=== PATIENT | female | born 1975 | race Caucasian/White ===

== ENCOUNTER → 2016-08-30 | Day surgery (SDC) | payer OTHER ==
[2016-08-24 13:24] VITALS: Ht 157.5 cm; Wt 97.7 kg
[~2016-08-30] VITALS: Ht 157.5 cm; Wt 97.7 kg
[~2016-08-30] MED LIST: ABL10 PO; ACET-1256 PO; ALBU18002 INH; ALBU1AER9 INH; ALBUAER INH; ARIP1TAB16 PO; ARIP1TAB8 PO; ASCO250C17 PO; ATV/1 PO; CHOL200010 PO; CYAN3INJ IM; CYAN6000 SL; CYCL10TA6 PO; CYNI1000 IM; DOCU-94 PO; DRON2.5C PO; FLUT110A INH; FLVHFA110 INH; GABA-113 PO; LACT1GRA PO; LEVO1TAB35 PO; LIDOCAINE HCL 2% 2 ML VIAL (20MG/ML) ONE; LISI-461 PO; LISI-729 PO; MAXALT PO; MIDAZOLAM HCL 1 MG/ML 2ML VIAL ONE; MIRT15TA PO; MIRT15TA3 PO; MTR600X PO; NADO20TA15 PO; NADO40TA PO; NF656 TD; OXYC-57 PO; PEDICHW50 PO; PEDICHW53 PO; POLY150C4 PEG; POLY150C4 PO; POLY335019 PO; POTA-65 PO; POTA20TA13 PO; PRLSR20 PO; PROPOFOL IV EMULSION 10 MG/ML 20 ML VIAL IV ONE; RIZA10TA18 PO; SERT50TA PO; SODIENE PR; SODIUM CHLORIDE 0.9% 500ML 500 ML IV ONE; TOPI100T20 PO; TRIA0.1C20 TOP; TRMCR130WC TOP; VALA500T60 PO; ZFRODT/8 PO; ZOLP10TA PO; ZOLP10TA6 PO; [UNRECOGNIZED DRUG - CODE] IV; [UNRECOGNIZED DRUG - CODE] IV; [UNRECOGNIZED DRUG - CODE] IV
[2016-08-30 10:00] VITALS: TEMP 36.5
--- NOTE | 2016-08-30 11:33 | Endo History and Physical ---
History & Physical Date of Service: Aug 30, 2016. Chief Complaint: hx of colon polyps Referring Physician: Dr. Bobo History of Present Illness H/o colon polyps Past Medical History Asthma, Gastrointestinal Disorder, Anxiety, Hypertension, Depression Past Surgical History Hx Cardiac Surgery: No Hx Internal Defibrillator: No Hx Pacemaker: No Hx Abdominal Surgery: Yes (GASTRIC BYPASS, HERNIA REPAIR, JENNIFER, ESSURE PROCEDURE IN FALLOPIAN TUBES) Hx of Implantable Prosthesis: No Hx Post-Op Nausea and Vomiting: No Hx Cancer Surgery: No Hx Thoracic Surgery: No Hx Orthopedic: No Hx Urinary Tract Surgery: No Family History Polyp Social History Smoking Status: Never Smoker Hx Substance Use: Yes (SEE MED REC (PAST HX OF DRUG USE-NOTHING CURRENT)) Hx Alcohol Use: No Allergies Coded Allergies: Morphine (Verified Allergy, Severe, TONGUE SWELLING, difficulty breathing/ wheezing, 08/24/16) Cat Dander (Verified Allergy, Unknown, ITCHY WATERY EYES , 08/24/16) Colestipol (Verified Allergy, Unknown, red rash (no itching), 08/24/16) NUTS (Verified Allergy, Unknown, skin test showed nut allergy, 08/24/16) per pt, eats peanuts without issue Scopolamine (Verified Adverse Reaction, Severe, Seizure, 08/24/16) SEIZURES ONLY WHEN COMBINED W/ WELLBUTRIN. Promethazine (Verified Adverse Reaction, Intermediate, "CAN'T SIT STILL", 08/24/16) Bupropion (Verified Adverse Reaction, Unknown, Seizure, 08/24/16) SEIZURES WHEN WELLBUTRIN IS COMBINED W/ SCOPALAMINE. Current Medications Reported Home Medications Medications Dose Route/Sig Max Daily Dose Days Date Category Dose Instructions Topamax (Topiramate) 100 Mg Tab 100 Mg PO BID 08/24/16 Reported Zestril (Lisinopril) 5 Mg Tab 5 Mg PO HS 06/03/16 Reported Corgard (Nadolol) 40 Mg Tab 1 Tab PO HS 30 04/29/16 Reported Remeron (Mirtazapine) 15 Mg Tab 15 Mg PO HS 03/11/16 Reported Neurontin (Gabapentin) 300 Mg Cap 300 Mg PO BID 02/23/16 Reported DAILY WITH LUNCH AND SUPPER Ambien (Zolpidem Tartrate) 10 Mg Tab 10 Mg PO HS 02/23/16 Reported Ativan (Lorazepam) 1 Mg Tab 1 Mg PO BID PRN 02/23/16 Reported Marinol (Dronabinol) 2.5 Mg Cap 2.5 Mg PO BID 02/23/16 Reported Ondansetron Odt (Ondansetron) 8 Mg Soltab 8 Mg PO Q8 PRN 02/16/16 Reported ALLOW TABLET TO DISSOLVE ON TONGUE Lactinex Granules (Lactobacillus Acidophilus) 1 Gm Pkt 1 Pkt PO TIDM 01/27/16 Reported Emend (Fosaprepitant Dimeglumine) Unknown Strength Inj 1 Dose IV WK 01/04/16 Reported Maxalt (Rizatriptan Benzoate) 10 Mg Tab 10 Mg PO UD PRN 10/21/15 Reported Fleet Enema (Sodium Phosphate/Biphosphate) Tamra 1 Ea MT DAILY PRN 10/11/15 Reported Vitamin D (Cholecalciferol) 2,000 Unit Cap 2,000 Inter.unit PO BID 10/11/15 Reported Tylenol (Acetaminophen) 500 Mg Tab 1,000 Mg PO Q6H PRN 04/08/15 Reported Colace (Docusate Sodium) 100 Mg Cap 200 Mg PO BID PRN 02/06/15 Reported Potassium Chloride ER (Potassium Chloride) 20 Meq Tab 20 Meq PO QAM 01/28/15 Reported Miralax (Polyethylene Glycol 3350) 1 Pow Pow 17 Gm PO TID PRN 01/24/15 Reported Flovent Hfa 110MCG Inhaler (Fluticasone Propionate Hfa) 110 Mcg/ Aer 2 Puffs INH BID 12/07/14 Reported Vitamin B-12 Inj (Cyanocobalamin) Unknown Strength Inj 1 Dose IM [id number] 11/23/14 Reported Valtrex (Valacyclovir HCl) 500 Mg Tab 500 Mg PO BID PRN 08/25/14 Reported Vitamin B-12 (Cyanocobalamin) 6,000 Mcg Sub 6,000 Mcg SL QAM 08/05/14 Reported Ascorbic Acid 250 Mg Chw 500 Mg PO QAM 07/20/14 Reported Abilify (Aripiprazole) 10 Mg Tab 15 Mg PO HS 05/22/14 Reported Flintstones Chewable (Pediatric Multiple Vitamin W/) 1 Chw Chw 1 Tab PO BID 02/11/14 Reported Ferrex 150 (Polysaccharide Iron Complex) 150 Mg Cap 150 Mg PO BID 02/11/14 Reported Proair Hfa (Albuterol) Aers 2 Puffs INH Q4H PRN 01/10/14 Reported Aristocort 0.1% (Triamcinolone Acetonide) Cr 1 Appln TOP DAILY PRN 01/09/14 Reported Vital Signs Weight (Kilograms): 97.73 Height (Feet): 5 Height (Inches): 2 Date Time Temp Pulse Resp B/P Pulse Ox O2 Delivery O2 Flow Rate FiO2 08/30/16 10:00 36.5 58 24 155/87 100 Room Air Physical Exam General Appearance: no apparent distress Respiratory/Chest: Respiratory effort: no dyspnea Auscultation: breath sounds normal Cardiovascular: Apical Impulse: not displaced Abdomen: Bowel Sounds: normal Assessment and Plan H/o colon polyps - cscopy
--- NOTE | 2016-08-30 12:05 | Discharge Instructions ---
Endoscopy Patient Instructions Date / Procedure(s) Performed Aug 30, 2016. Colonoscopy Allergy Information Coded Allergies: Morphine (Verified Allergy, Severe, TONGUE SWELLING, difficulty breathing/ wheezing, 08/24/16) Cat Dander (Verified Allergy, Unknown, ITCHY WATERY EYES , 08/24/16) Colestipol (Verified Allergy, Unknown, red rash (no itching), 08/24/16) NUTS (Verified Allergy, Unknown, skin test showed nut allergy, 08/24/16) per pt, eats peanuts without issue Scopolamine (Verified Adverse Reaction, Severe, Seizure, 08/24/16) SEIZURES ONLY WHEN COMBINED W/ WELLBUTRIN. Promethazine (Verified Adverse Reaction, Intermediate, "CAN'T SIT STILL", 08/24/16) Bupropion (Verified Adverse Reaction, Unknown, Seizure, 08/24/16) SEIZURES WHEN WELLBUTRIN IS COMBINED W/ SCOPALAMINE. Discharge Date / Findings Aug 30, 2016. Normal exam Medication Instructions Stopped Medication(s): Iron was stopped 5 days ago. Provider Instructions Activity Restrictions - No exercising or heavy lifting for 24 hours. - Do not drink alcohol the day of the procedure. - Do not drive a car or operate machinery until the day after the procedure. - Do not make any important decisions or sign important papers in 24 hours after the procedure. Following Day: - Return to full activity which may include returning to work/school. Diet Start your diet with liquids and light foods (jello, soup, juice, toast). Then eat your usual diet if not nauseated. Treatment For Common After Affects For mild abdominal pain, bloating, or excessive gas: - Rest - Eat lightly - Lie on right side Follow-Up Information Follow-up with Dr. Bobo as scheduled Anesthesia Information What You Should Know You have had a procedure that required some medicine to reduce anxiety and discomfort. This treatment is called moderate sedation. After receiving the treatment, you may be sleepy, but you will be able to breathe on your own. The effects of the treatment may last for several hours. Follow these instructions along with Activity/Diet recommendations noted above: * Do NOT do anything where dizziness or clumsiness would be dangerous. * Rest quietly at home today, then you can be up and about tomorrow. * Have a responsible person stay with you the rest of today. * You may have had an I.V. today. If so, you may take the dressing off later today. Recommendations Call your doctor if: * Trouble breathing * Continuous vomiting for more than 24 hours * Temperature above 101 degrees * Severe abdominal pain or bloating * Pain not relieved by pain medicine ordered * There is increased drainage or redness from any incision * A large amount of rectal bleeding greater than 2-3 tablespoons. (If you had a polyp/s removed or have hemorrhoids, a small amount of blood - from the rectum is to be expected.) * You have any unanswered questions or concerns. IN THE EVENT OF A SERIOUS EMERGENCY, GO TO THE NEAREST EMERGENCY ROOM Your discharge instructions were prepared by provider Sharon Zambraon. Patient Instructions Signature Page [place] Harris Patient (or Guardian) Signature/Date: I have read and understand the instructions given to me by my caregivers. Caregiver/RN/Doctor Signature/Date: The above-named patient and/or guardian has received patient instructions on this date. + Original Patient Signature Page (only) stays with chart. Please make copy for patient.
--- NOTE | 2016-08-30 12:05 | GI REPORT ---
Procedure Date: 08/30/2016 10:53 AM Procedure: Colonoscopy Indications: High risk colon cancer surveillance: Personal history of colonic polyps Medicines: See the Anesthesia note for documentation of the administered medications Complications: No immediate complications. Estimated Blood Loss: Estimated blood loss: none. Procedure: Pre-Anesthesia Assessment: - ASA Grade Assessment: III - A patient with severe systemic disease. After I obtained informed consent, the scope was passed under direct vision. Throughout the procedure, the patient's blood pressure, pulse, and oxygen saturations were monitored continuously. The scope was introduced through the anus and advanced to the terminal ileum. The colonoscopy was performed without difficulty. The patient tolerated the procedure well. The quality of the bowel preparation was good. Findings: The perianal and digital rectal examinations were normal. The colon (entire examined portion) appeared normal. The terminal ileum appeared normal. Impression: - The entire examined colon is normal. - The examined portion of the ileum was normal. - No specimens collected. Recommendation: - Discharge patient to home. Sharon Bryant M.D. Sahron Bryant MD 08/30/2016 12:05:22 PM This report has been signed electronically. Note Initiated On: 08/30/2016 10:53 AM I attest to the content of the Intraoperative Record and orders documented therein, exceptions below
[2016-08-30 12:31] VITALS: BP 147/73; PULSE 52; O2SAT 100
--- NOTE | 2016-08-30 14:26 | Anesthesiology Progress Note ---
Anesthesia Post Op Note Date & Time Aug 30, 2016 at 14:26 Vital Signs Pain Intensity: 0 Vital Signs Past 12 Hours Date Time Temp Pulse Resp B/P Pulse Ox O2 Delivery O2 Flow Rate FiO2 08/30/16 12:31 52 22 147/73 100 Room Air 08/30/16 12:18 48 22 134/63 95 Room Air 08/30/16 12:01 59 22 122/58 100 Room Air 08/30/16 10:00 36.5 58 24 155/87 100 Room Air Notes Mental Status: alert / awake / arousable, participated in evaluation Pt Amnestic to Procedure: Yes Nausea / Vomiting: adequately controlled Pain: adequately controlled Airway Patency, RR, SpO2: stable & adequate BP & HR: stable & adequate Hydration State: stable & adequate Anesthetic Complications: no major complications apparent
== END | disposition home or self-care (01) ==
LOC: C.GI 09:36
PROVIDERS: ATTEND Internal Medicine Gastroenterology
DX: Z12.11 Encounter for screening for malignant neoplasm of colon (principal); Z86.010 Personal history of colon polyps; J45.909 Unspecified asthma, uncomplicated; I10 Essential (primary) hypertension; F41.9 Anxiety disorder, unspecified; F32.9 Major depressive disorder, single episode, unspecified; Z95.1 Presence of aortocoronary bypass graft; Z98.890 Other specified postprocedural states; Z88.5 Allergy status to narcotic agent; Z88.8 Allergy status to other drugs, medicaments and biological substances

== ENCOUNTER 2016-10-28 05:12 | Inpatient (IN) | payer OTHER ==
[2016-10-11 13:14] VITALS: BMI 38.0
--- NOTE | 2016-10-11 13:45 | PAT Medication Instructions ---
Service Date Oct 11, 2016. Current Home Medication List Acetaminophen (Tylenol), 1,000 MG PO Q6H PRN for Pain Albuterol (Proair Hfa), 2 PUFFS INH Q4H PRN for SOB/Wheezing Aripiprazole (Abilify), 15 MG PO HS Ascorbic Acid (Ascorbic Acid), 500 MG PO QAM Cholecalciferol (Vitamin D), 2,000 INTER.UNIT PO QAM Cyanocobalamin (Vitamin B-12), 6,000 MCG SL QAM Cyanocobalamin (Vitamin B-12 Inj), 1 DOSE IM [id number] Docusate Sodium (Colace), 200 MG PO BID PRN for Constipation Dronabinol (Marinol), 2.5 MG PO BID Fluticasone Propionate Hfa (Flovent Hfa 110MCG Inhaler), 2 PUFFS INH BID Fosaprepitant Dimeglumine (Emend), 1 DOSE IV MONDAY Gabapentin (Neurontin), 300 MG PO BID Lactobacillus Acidophilus (Lactinex Granules), 1 PKT PO TIDM Lisinopril (Zestril), 5 MG PO HS Lorazepam (Ativan), 1 MG PO BID PRN for Anxiety Mirtazapine (Remeron), 15 MG PO HS Nadolol (Corgard), 40 MG PO QAM Omeprazole (Prilosec), 20 MG PO QAM Ondansetron (Ondansetron Odt), 8 MG PO Q8 PRN for Nausea Pediatric Multiple Vitamin W/ (Flintstones Chewable), 1 TAB PO BID Polyethylene Glycol 3350 (Miralax), 17 GM PO TID PRN for Constipation Polysaccharide Iron Complex (Ferrex 150), 150 MG PO BID Potassium Chloride (Potassium Chloride ER), 20 MEQ PO QAM Rizatriptan Benzoate (Maxalt), 10 MG PO UD PRN for Headache Sodium Phosphate/Biphosphate (Fleet Enema), 1 EA OK DAILY PRN for Constipation Topiramate (Topamax), 100 MG PO BID Triamcinolone Acet 0.1% (Aristocort 0.1%), 1 APPLN TOP DAILY PRN for Itching Valacyclovir (Valtrex), 500 MG PO BID PRN for Outbreaks Zolpidem Tartrate (Ambien), 10 MG PO HS Medication Instructions For Your Scheduled Surgery - Continue as directed: Fosaprepitant Dimeglumine (Emend), 1 DOSE IV MONDAY Cyanocobalamin (Vitamin B-12 Inj), 1 DOSE IM [id number] - Hold the following medications 24 hours prior to surgery: Lisinopril (Zestril), 5 MG PO HS Triamcinolone Acet 0.1% (Aristocort 0.1%), 1 APPLN TOP DAILY PRN for Itching - Hold the following medications the morning of surgery: Pediatric Multiple Vitamin W/ (Flintstones Chewable), 1 TAB PO BID Docusate Sodium (Colace), 200 MG PO BID PRN for Constipation Lactobacillus Acidophilus (Lactinex Granules), 1 PKT PO TIDM Ascorbic Acid (Ascorbic Acid), 500 MG PO QAM Cholecalciferol (Vitamin D), 2,000 INTER.UNIT PO QAM Cyanocobalamin (Vitamin B-12), 6,000 MCG SL QAM Potassium Chloride (Potassium Chloride ER), 20 MEQ PO QAM Sodium Phosphate/Biphosphate (Fleet Enema), 1 EA OK DAILY PRN for Constipation Polysaccharide Iron Complex (Ferrex 150), 150 MG PO BID Polyethylene Glycol 3350 (Miralax), 17 GM PO TID PRN for Constipation - Take the following medications the morning of surgery with a sip of water OTHERWISE NOTHING TO EAT OR DRINK AFTER MIDNIGHT: Acetaminophen (Tylenol), 1,000 MG PO Q6H PRN for Pain (may take if needed up to 4 hours prior to surgery) Albuterol (Proair Hfa), 2 PUFFS INH Q4H PRN for SOB/Wheezing (use if needed; BRING TO HOSPITAL) Valacyclovir (Valtrex), 500 MG PO BID PRN for Outbreaks Dronabinol (Marinol), 2.5 MG PO BID Fluticasone Propionate Hfa (Flovent Hfa 110MCG Inhaler), 2 PUFFS INH BID Gabapentin (Neurontin), 300 MG PO BID Topiramate (Topamax), 100 MG PO BID Lorazepam (Ativan), 1 MG PO BID PRN for Anxiety Nadolol (Corgard), 40 MG PO QAM Omeprazole (Prilosec), 20 MG PO QAM Ondansetron (Ondansetron Odt), 8 MG PO Q8 PRN for Nausea Rizatriptan Benzoate (Maxalt), 10 MG PO UD PRN for Headache - Take the following medications as scheduled the night before surgery: Acetaminophen (Tylenol), 1,000 MG PO Q6H PRN for Pain Albuterol (Proair Hfa), 2 PUFFS INH Q4H PRN for SOB/Wheezing Mirtazapine (Remeron), 15 MG PO HS Aripiprazole (Abilify), 15 MG PO HS Zolpidem Tartrate (Ambien), 10 MG PO HS Valacyclovir (Valtrex), 500 MG PO BID PRN for Outbreaks Dronabinol (Marinol), 2.5 MG PO BID Fluticasone Propionate Hfa (Flovent Hfa 110MCG Inhaler), 2 PUFFS INH BID Gabapentin (Neurontin), 300 MG PO BID Topiramate (Topamax), 100 MG PO BID Lorazepam (Ativan), 1 MG PO BID PRN for Anxiety Pediatric Multiple Vitamin W/ (Flintstones Chewable), 1 TAB PO BID Docusate Sodium (Colace), 200 MG PO BID PRN for Constipation Lactobacillus Acidophilus (Lactinex Granules), 1 PKT PO TIDM Ondansetron (Ondansetron Odt), 8 MG PO Q8 PRN for Nausea Sodium Phosphate/Biphosphate (Fleet Enema), 1 EA OK DAILY PRN for Constipation Rizatriptan Benzoate (Maxalt), 10 MG PO UD PRN for Headache Polysaccharide Iron Complex (Ferrex 150), 150 MG PO BID Polyethylene Glycol 3350 (Miralax), 17 GM PO TID PRN for Constipation If you have any questions please call us at [phone] or [phone] or [phone]
[2016-10-11 14:08] LABS: BASO % 0.2 %; BASO ABS # 0.01 K/uL (0-0.2); COMPLETE YES; EOS % 1.9 %; HEMATOCRIT 32.9 % (37-47); IG% 0.2 %; LYMPH % 24.5 %; LYMPH ABS # 1.57 K/uL (1.2-3.4); MEAN CELL VOLUME 83.3 fL (80-100); MEAN CORPUSCULAR HEMOGLOBIN 25.3 pg (25-34); MEAN CORPUSCULAR HGB CONC 30.4 g/dl (32-36); MEAN PLATELET VOLUME 9.8 fL (7.4-10.4); MONO % 9.1 %; NEUT % 64.1 %; PLATELET COUNT 245 K/uL (130-400); RED BLOOD COUNT 3.95 M/uL (4.2-5.4)
[2016-10-11 14:30] LABS: CALCIUM 8.4 mg/dl (8.5-10.1); CREATININE 0.84 mg/dl (0.60-1.20); POTASSIUM 3.9 mmol/L (3.5-5.1)
[2016-10-28] VITALS (10 sets, daily range): BP systolic 120–165; BP diastolic 74–112; PULSE 55–87; TEMP 36.8–37.1; O2SAT 94–99; Ht 160 cm; Wt 96.9 kg
[~2016-10-28] VITALS: Ht 160 cm; Wt 96.9 kg
[~2016-10-28 05:12] MED LIST changes: -ABL10 PO; -ACET-1256 PO; -ALBU18002 INH; -ALBUAER INH; -ARIP1TAB16 PO; -ARIP1TAB8 PO; -ASCO250C17 PO; -ATV/1 PO; -CHOL200010 PO; -CYAN6000 SL; -CYCL10TA6 PO; -CYNI1000 IM; -DOCU-94 PO; -DRON2.5C PO; -FLVHFA110 INH; -GABA-113 PO; -LACT1GRA PO; -LEVO1TAB35 PO; -LIDOCAINE HCL 2% 2 ML VIAL (20MG/ML) ONE; -LISI-461 PO; -LISI-729 PO; -MAXALT PO; -MIDAZOLAM HCL 1 MG/ML 2ML VIAL ONE; -MIRT15TA PO; -MIRT15TA3 PO; -MTR600X PO; -NADO20TA15 PO; -NADO40TA PO; -NF656 TD; -OXYC-57 PO; -PEDICHW50 PO; -PEDICHW53 PO; -POLY150C4 PEG; -POLY150C4 PO; -POLY335019 PO; -POTA-65 PO; -POTA20TA13 PO; -PRLSR20 PO; -PROPOFOL IV EMULSION 10 MG/ML 20 ML VIAL IV ONE; -RIZA10TA18 PO; -SERT50TA PO; -SODIENE PR; -SODIUM CHLORIDE 0.9% 500ML 500 ML IV ONE; -TOPI100T20 PO; -TRMCR130WC TOP; -VALA500T60 PO; -ZFRODT/8 PO; -ZOLP10TA PO; -ZOLP10TA6 PO; -[UNRECOGNIZED DRUG - CODE] IV; -[UNRECOGNIZED DRUG - CODE] IV; -[UNRECOGNIZED DRUG - CODE] IV
[2016-10-28 05:51] LABS: HEMATOCRIT 29.6 % (37-47); MEAN CELL VOLUME 80.9 fL (80-100); MEAN CORPUSCULAR HEMOGLOBIN 25.4 pg (25-34); MEAN PLATELET VOLUME 9.4 fL (7.4-10.4); PLATELET COUNT 217 K/uL (130-400); RED BLOOD COUNT 3.66 M/uL (4.2-5.4); WHITE BLOOD COUNT 5.65 K/uL (4.8-10.8)
[2016-10-28] MEDS ORDERED: LACTATED RINGER'S 1000ML 1,000 ML IV SCH ×2 (06:00)
[2016-10-28] MEDS ORDERED: CEFAZOLIN 3000 MG/65 ML D5W 50 ML IV SCH (06:00)
[2016-10-28 06:08] LABS: MEAN CORPUSCULAR HGB CONC 31.4 g/dl (32-36)
[2016-10-28 06:09] LABS: COMPLETE YES; EOS % 1.8 %; IG% 0.2 %; LYMPH % 22.5 %; LYMPH ABS # 1.27 K/uL (1.2-3.4); MONO % 8.1 %; NEUT % 67.4 %
[2016-10-28] MEDS ORDERED: MIDAZOLAM HCL 1 MG/ML 2ML VIAL ONE (06:43)
[2016-10-28] MEDS ORDERED: ONDANSETRON INJ 2 MG/ML 2 ML VIAL ONE ×2 (06:44→07:19)
[2016-10-28] MEDS ORDERED: LIDOCAINE HCL 2% 2 ML VIAL (20MG/ML) ONE (06:44)
[2016-10-28] MEDS ORDERED: NEOSTIGMINE METHYLSULFATE 5 MG/5 ML SYR ONE (06:44)
[2016-10-28] MEDS ORDERED: GLYCOPYRROLATE INJ 0.2 MG/ML VIAL ONE (06:44)
[2016-10-28] MEDS ORDERED: ROCURONIUM BROMID 50MG/5ML SYR ONE (06:44)
[2016-10-28] MEDS ORDERED: FENTANYL CITRATE INJ 50 MCG/1 ML 2 ML VIAL ONE (06:44)
[2016-10-28] MEDS ORDERED: PROPOFOL IV EMULSION 10 MG/ML 20 ML VIAL IV ONE ×4 (06:44→08:51)
[2016-10-28] MEDS ORDERED: DEXAMETHASONE SOD INJ 4 MG/ML VIAL ONE ×2 (06:44→07:19)
--- NOTE | 2016-10-28 06:46 | History & Physical Bridge Note ---
H&P Re-Evaluation Bridge Note: I have examined the patient, reviewed the History & Physical and in the interval since the performance of the History & Physical I have noted the following changes of clinical significance: No changes noted
[2016-10-28] MEDS ORDERED: BUPIVACAINE 0.5 % 5 MG/1 ML MPF 30ML VIAL ONE (07:01)
[2016-10-28] MEDS ORDERED: METHYLENE BLUE 0.5% 10 ML VIAL ONE (07:01)
[2016-10-28] MEDS ORDERED: MINERAL OIL LIGHT 10 ML BTL ONE (07:02)
[2016-10-28] MEDS ORDERED: HYDROmorphone INJ 2 MG/ML SYR/VIAL ONE (07:28)
[2016-10-28] MEDS ORDERED: DiphenhydrAMINE HCL 50 MG/ML VIAL ONE (07:30)
[2016-10-28] MEDS ORDERED: EpHEDrine SULFATE INJ 50 MG/ML AMP IV PRN (07:45)
[2016-10-28] MEDS ORDERED: FENTANYL CITRATE INJ 50 MCG/1 ML 2 ML VIAL IV PRN (07:45)
[2016-10-28] MEDS ORDERED: ATROPINE SULFATE 0.1 MG/ML 5ML SYR IV PRN (07:45)
[2016-10-28] MEDS ORDERED: ONDANSETRON INJ 2 MG/ML 2 ML VIAL IV PRN ×2 (07:45→10:15)
[2016-10-28] MEDS ORDERED: HYDROmorphone INJ 1 MG/ML SYR IV PRN (07:45)
--- NOTE | 2016-10-28 10:02 | [facility] Post Operative Brief Note ---
Immediate Operative Summary Operative Date Oct 28, 2016. Pre-Operative Diagnosis Chronic pelvic pain, heavy menstrual bleeding, history of endometrial ablation. Post-Operative Diagnosis Same as preop. Enlarged right cystic ovary Procedure(s) Performed Total Laparoscopic Hysterectomy, Right salpingo-oophorectomy, Cystoscopy Surgeon Dr. Mir Co Chairman Surgeon(s) Dr. Estes Estimated Blood Loss 25 ml Findings Upon laparoscopic exam, uterus was at midline and freely mobile. The right ovary was enlarged and cystic therefore the decision was to remove the right ovary and tube. The left ovary was normal. The uterus, cervix and right ovary and tube were successfully removed laparoscopically. Once the specimens were removed the vaginal cuff was closed. Anesthesia was instructed to push methylene blue. A cystoscopy was performed noting bilateral ureteral openings spilled urine indicating both ureters were intact. No injury or suture noted within the bladder wall. Patient tolerated the procedure well and was sent to recovery with stable vital signs. Fluids (cc crystalloids) 1200 Specimens A: Uterus and cervix B: Right tube and ovary. Drains Vaca to gravity Anesthesia General Complication(s) None Disposition Recovery Room / PACU
[2016-10-28] MEDS ORDERED: MAGNESIUM HYDROXIDE SUSP 30 ML UDC PO PRN (10:15)
[2016-10-28] MEDS ORDERED: BISACODYL 10 MG SUPP PR PRN (10:15)
[2016-10-28] MEDS ORDERED: SENNA 8.6 MG TAB PO PRN (10:15)
[2016-10-28] MEDS ORDERED: LORAZEPAM 1 MG TAB PO PRN (10:15)
[2016-10-28] MEDS ORDERED: ALBUTEROL HFA 8 GM INHALER INH PRN (10:15)
[2016-10-28] MEDS ORDERED: DOCUSATE SODIUM 100 MG CAP PO PRN (10:15)
[2016-10-28] MEDS ORDERED: RIZATRIPTAN BENZOATE 10 MG TAB PO PRN (10:15)
[2016-10-28] MEDS ORDERED: KETOROLAC TROMETHAMINE 30 MG/ML VIAL IV. PRN (10:15)
[2016-10-28] MEDS ORDERED: ONDANSETRON 8MG OD TAB PO PRN (10:15)
[2016-10-28] MEDS ORDERED: IBUPROFEN 600 MG TAB PO PRN (10:15)
[2016-10-28] MEDS ORDERED: OXYC-57 PO (10:21)
[2016-10-28] MEDS ORDERED: MTR600X PO (10:21)
--- NOTE | 2016-10-28 10:52 | OPERATIVE REPORT ---
DATE OF OPERATION: 10/28/2016 PREOPERATIVE DIAGNOSES: 1. Chronic pelvic pain. 2. Heavy menstrual bleeding. 3. History of endometrial ablation. POSTOPERATIVE DIAGNOSES: 1. Chronic pelvic pain. 2. Heavy menstrual bleeding. 3. History of endometrial ablation. 4. Enlarged right ovary. OPERATIVE PROCEDURE: Total laparoscopic hysterectomy with right salpingo-oophorectomy and cystoscopy. SURGEON: Dr. Mir. CARE NURSE RN: Dr. Estes. ANESTHESIA: General. ESTIMATED BLOOD LOSS: 25 mL. IV FLUIDS: 1200 mL crystalloids. URINE OUTPUT: 500 mL clear yellow urine. SPECIMENS: Uterus, cervix, right tube and ovary to pathology. DRAINS: Vaca to gravity. COMPLICATIONS: None. DISPOSITION: Recovery room. OPERATIVE FINDINGS: Upon laparoscopic exam, uterus was at midline and freely mobile. The right ovary was enlarged and cystic therefore decision was to remove the right ovary and tube, left ovary was normal. The uterus, cervix and right ovary and tube were successfully removed laparoscopically. Once the specimens were removed, the vaginal cuff was closed laparoscopically with the EndoStitch. Once the cuff was closed, anesthesia was instructed to push methylene blue and a cystoscopy was then performed noting bilateral ureteral openings spilled blue-tinged urine, indicating both ureters were intact. There was no injury or suture noted within the bladder wall. The patient tolerated the surgery well and was sent to recovery with stable vital signs. OPERATION AND FINDINGS: OPERATIVE PROCEDURE IN DETAIL: The patient was taken to the operating room where general anesthesia was administered. Once anesthesia was found to be adequate, the patient was placed in dorsal lithotomy position and was prepped and draped in a manner appropriate for the procedure. A weighted speculum was then placed into the vagina and the anterior lip of the cervix was grasped with single tooth tenaculum. A medium VCare uterine manipulator was then placed within the uterus in an anteverted fashion and was suture-ligated to the cervix at the 12 o'clock and 6 o'clock position with 0 Vicryl suture. Once the VCare was in place a sterile Vaca catheter was placed within the bladder and remained indwelling throughout the entire procedure. The patient was then ready for the laparoscopic portion of the procedure. Attention was then directed towards the patient's abdomen. Marcaine 0.5% was injected on the left side of the abdomen supraclavicular midline above the umbilicus and an 11-mm skin incision was made in a horizontal fashion. The fascia was then grasped with German clamps and a Veress needle was then placed within the abdomen. Normal saline was then injected with no fecal content aspirated. Pneumoperitoneum was then created. The Veress needle was then removed and an 11 mm trocar was then placed within the abdomen under direct laparoscopic visualization. A thorough examination of the abdomen and pelvis was then performed. A second 11 mm skin incision was made on the left side of the abdomen and a second 11 mm trocar was then placed within the abdomen under direct laparoscopic visualization. A third 11 mm skin incision was made on the right side of the abdomen and an 11 mm trocar was then placed within the abdomen under direct laparoscopic visualization. Attention was then directed towards the right adnexa where the round ligament was cauterized and transected. The right uteroovarian ligament was then cauterized and transected, continued inferiorly through the broad ligament. The broad ligament was then and the anterior leaf of the broad ligament was cauterized and transected creating the bladder flap across the lower uterine segment. Attention was then directed towards the left adnexa which likewise round ligament was cauterized and transected along with the uteroovarian ligament, continued inferiorly through the broad ligament. The anterior leaf of the broad ligament was then and cauterized and transected creating the bladder flap across the lower uterine segment on the left. The bladder flap was then pushed away from the lower uterine segment. The ascending uterine arteries were then cauterized and transected bilaterally. We continued inferiorly through the cardinal uterosacral complex bilaterally. Once we were at the level of the [facility] uterine manipulator the cervix was then amputated from the vaginal cuff circumferentially with the LigaSure. Once the entire specimen was amputated, the uterus and cervix were then removed from the vagina. A sterile glove was then placed within the vagina to maintain a pneumoperitoneum. Attention was then directed towards the right ovary which was noted to be enlarged; therefore decision was then made to remove the right ovary and tube. The right infundibulopelvic ligament was cauterized and transected, continued inferiorly through the rest of the attachment point to the right ovary and tube. Once the right ovary and tube were completely transected, it was removed through the vagina and sent to pathology along with the uterus and cervix. The vaginal cuff was then closed with 0 Polysorb suture with EndoStitch in a continuous locking fashion. Excellent hemostasis was noted at the vaginal cuff. The peritoneum was then reapproximated with 0 Polysorb suture with the EndoStitch in a continuous running fashion. Excellent hemostasis was noted. The entire abdomen and pelvis was then copiously irrigated with warm saline solution and all fluid was aspirated from the abdomen and pelvis. Anesthesia was then instructed to push methylene blue. The pneumoperitoneum was then released. As much CO2 gas was allowed to percolate through open cannulas. Attention was then directed towards the perineum where the Vaca catheter was removed. The cystoscope was then introduced into the bladder and a thorough exam was then performed noting bilateral ureteral openings spilling blue-tinged urine indicating bilateral ureters were intact . There was no suture injury to the bladder wall as well. At this point, the cystoscope was then removed and a sterile Vaca catheter was replaced within the bladder. Attention was then directed towards the abdomen where all 3 trocars were removed from the abdomen. The fascia of all 3 incisions were reapproximated with 0 Vicryl suture in a [id number] interrupted fashion. All 3 skin incisions were then closed with 4-0 Monocryl in a subcuticular fashion. Excellent hemostasis was noted. The sterile glove was then removed from the vagina and again excellent hemostasis was noted. All sponge and instrument counts were found to be correct x2. The patient tolerated the surgery well and was sent to recovery with stable vital signs. I attest to the content of the Intraoperative Record and any orders documented therein. Any exceptio ns are noted below.
--- NOTE | 2016-10-28 11:21 | Anesthesiology Progress Note ---
Anesthesia Post Op Note Date & Time Oct 28, 2016 at 11:20 Vital Signs Pain Intensity: 4 Vital Signs Past 12 Hours Date Time Temp Pulse Resp B/P Pulse Ox O2 Delivery O2 Flow Rate FiO2 10/28/16 10:55 65 14 134/79 100 Nasal Cannula 2 10/28/16 10:45 36.1 62 20 135/76 100 Nasal Cannula 2 10/28/16 10:35 71 16 126/77 100 Mask 10 10/28/16 10:25 73 17 134/73 100 Mask 10 10/28/16 10:15 75 13 108/69 94 Mask 10 10/28/16 10:07 36.3 82 18 123/68 98 Mask 10 10/28/16 05:46 37.1 72 16 155/86 99 Room Air Notes Mental Status: alert / awake / arousable, participated in evaluation Pt Amnestic to Procedure: Yes Nausea / Vomiting: adequately controlled Pain: adequately controlled Airway Patency, RR, SpO2: stable & adequate BP & HR: stable & adequate Hydration State: stable & adequate Anesthetic Complications: no major complications apparent
[2016-10-28] MEDS: OXYCODONE/ACETAMINOPHEN 5-325 TAB PO PRN ×3 (13:20→22:09)
[2016-10-28] MEDS: LACTATED RINGER'S 1000ML 1,000 ML IV SCH ×2 (13:21→21:09)
[2016-10-28] MEDS ORDERED: NURSING VERBAL MED ORDER ONE (18:30)
[2016-10-28 19:55] LABS: HEMATOCRIT 26.9 % (37-47)
[2016-10-28] MEDS ORDERED: ZOLPIDEM TARTRATE 10 MG TAB PO SCH (21:00)
[2016-10-28] MEDS ORDERED: MIRTAZAPINE TAB 15 MG TAB PO SCH (21:00)
[2016-10-28] MEDS ORDERED: ARIPIprazole TAB 15 MG TAB PO SCH (21:00)
[2016-10-28] MEDS ORDERED: LISINOPRIL 5 MG TAB PO SCH (21:00)
[2016-10-28] MEDS: FLUTICASONE HFA 110MCG INHALER INH SCH (21:01)
[2016-10-28] MEDS: GABAPENTIN 300 MG CAP PO SCH (21:02)
[2016-10-28] MEDS: TOPIRAMATE 100 MG TAB PO SCH (21:04)
[2016-10-28] MEDS: DRONABINOL 2.5 MG CAP PO SCH (21:07)
[2016-10-29 03:30] VITALS: BP 135/82; PULSE 68; TEMP 37; O2SAT 96
[2016-10-29] MEDS: OXYCODONE/ACETAMINOPHEN 5-325 TAB PO PRN ×2 (03:38→07:41)
[2016-10-29 05:54] LABS: EOS % 1.3 %; HEMATOCRIT 25.5 % (37-47); IG% 0.1 %; LYMPH % 18.1 %; LYMPH ABS # 1.37 K/uL (1.2-3.4); MEAN CORPUSCULAR HEMOGLOBIN 25.7 pg (25-34); MEAN CORPUSCULAR HGB CONC 31.4 g/dl (32-36); MEAN PLATELET VOLUME 10.2 fL (7.4-10.4); MONO % 9.4 %; NEUT % 71.1 %; PLATELET COUNT 201 K/uL (130-400); RED BLOOD COUNT 3.11 M/uL (4.2-5.4); WHITE BLOOD COUNT 7.55 K/uL (4.8-10.8)
[2016-10-29 06:45] LABS: COMPLETE YES
[2016-10-29 07:35] VITALS: BP 165/93; PULSE 68; TEMP 36.8; O2SAT 100
[2016-10-29] MEDS: FLUTICASONE HFA 110MCG INHALER INH SCH (08:58)
[2016-10-29] MEDS: TOPIRAMATE 100 MG TAB PO SCH (08:59)
[2016-10-29] MEDS: DRONABINOL 2.5 MG CAP PO SCH (08:59)
[2016-10-29] MEDS: GABAPENTIN 300 MG CAP PO SCH (08:59)
[2016-10-29 09:03] VITALS: BP 133/83
--- NOTE | 2016-10-29 09:42 | Discharge Instructions ---
Discharge Instructions Date of Service Oct 29, 2016. Admission Reason for Admission: Pelvic Pain, Heavy Menstral Bleeding, Hx Multiple Discharge Discharge Diagnosis / Problem: abnormal uterine bleeding Discharge Goals Goal(s): Routine recovery after surgery Activity Recommendations Activity Limitations: as noted below Lifting Limitations: no more than 10 pounds Exercise/Sports Limitations: gradually increase as tolerated May Resume Sexual Activity: after follow-up appointment Shower/Bathe: no limitations Driving or Machine Use: . Instructions / Follow-Up Instructions / Follow-Up ACTIVITY RECOMMENDATIONS: * Gradual return to full activity over next 2-3 weeks. * No heavy lifting over next 2-3 weeks. * Nothing in the vagina (no intercourse, tampons, or douching) for ___ * You may walk up and down steps as necessary. * You may drive a car in 2 weeks. * Hot shower or tub bath daily. SPECIAL CARE INSTRUCTIONS: * Check temperature twice daily for one week. Report any elevation over 100.4 degrees Fahrenheit (38.0 degrees Celsius). * Call your doctor if bleeding becomes heavier than the heaviest part of your period - saturating a sanitary pad within an hour. * If you develop a red, hard, warm swollen lump on your incision or if you develop any separation of or drainage from your incision, notify your doctor. Current Hospital Diet Patient's current hospital diet: Regular Diet Discharge Diet Recommended Diet: Regular Diet Fluid Restriction: None Procedures Procedures Performed: Total Laparoscopic Hysterectomy, Right salpingo-oophorectomy, Cystoscopy Pending Studies Studies pending at discharge: no Medical Emergencies . Who to Call and When: Medical Emergencies: If at any time you feel your situation is an emergency, please call 911 immediately. . Non-Emergent Contact Non-Emergency issues call your: Primary Care Provider . . "Provider Documentation" section prepared by Frandy Damico. VTE Core Measure Inpt VTE Proph given/why not?: Treatment not indicated
--- NOTE | 2016-10-29 09:43 | Surgery Progress Note ---
Surgery Progress Note Date of Service Oct 29, 2016. Subjective Post OP Day: 1 + ambulating, + diet, + feeling well, + flatus, + pain controlled Objective Vital Signs: Date Time Temp Pulse Resp B/P Pulse Ox O2 Delivery O2 Flow Rate FiO2 10/29/16 09:03 133/83 10/29/16 07:35 36.8 68 18 165/93 100 Room Air 10/29/16 07:35 Room Air 10/29/16 03:30 37.0 68 18 135/82 96 Room Air 10/28/16 23:35 95 Room Air 10/28/16 23:35 37.0 76 16 120/79 95 Room Air 10/28/16 19:30 94 Room Air 10/28/16 19:30 37.1 80 18 121/74 94 Room Air 10/28/16 16:00 36.9 77 77 129/82 96 Room Air 10/28/16 16:00 96 Room Air 10/28/16 14:56 36.8 70 20 143/85 96 Room Air 10/28/16 13:05 36.8 87 18 165/96 97 Room Air 10/28/16 12:45 134/87 10/28/16 12:05 36.8 55 16 165/112 98 Room Air 10/28/16 11:35 36.8 60 16 151/94 96 Room Air 10/28/16 11:05 98 Nasal Cannula 2.0 10/28/16 11:05 98 Nasal Cannula 2.0 10/28/16 10:55 65 14 134/79 100 Nasal Cannula 2 10/28/16 10:45 36.1 62 20 135/76 100 Nasal Cannula 2 10/28/16 10:35 71 16 126/77 100 Mask 10 10/28/16 10:25 73 17 134/73 100 Mask 10 10/28/16 10:15 75 13 108/69 94 Mask 10 10/28/16 10:07 36.3 82 18 123/68 98 Mask 10 General Appearance: no apparent distress Abdomen: non tender, non distended, soft Incision(s): clean, dry, intact Extremities: non-tender, normal inspection, no pedal edema, no calf tenderness Laboratory Results: Results Past 24 Hours Test 10/28/16 11:22 10/28/16 19:45 10/29/16 05:10 Range/Units Bedside Glucose 100 70-90 mg/dl Hemoglobin 8.6 8.0 12.0-16.0 g/dL Hematocrit 26.9 25.5 37-47 % White Blood Count 7.55 4.8-10.8 K/uL Red Blood Count 3.11 4.2-5.4 M/uL Mean Corpuscular Volume 82.0 80-100 fL Mean Corpuscular Hemoglobin 25.7 25-34 pg Mean Corpuscular Hemoglobin Concent 31.4 32-36 g/dl Platelet Count 201 130-400 K/uL Mean Platelet Volume 10.2 7.4-10.4 fL Neutrophils (%) (Auto) 71.1 % Lymphocytes (%) (Auto) 18.1 % Monocytes (%) (Auto) 9.4 % Eosinophils (%) (Auto) 1.3 % Basophils (%) (Auto) 0.0 % Neutrophils # (Auto) 5.36 1.4-6.5 K/uL Lymphocytes # (Auto) 1.37 1.2-3.4 K/uL Monocytes # (Auto) 0.71 0.11-0.59 K/uL Eosinophils # (Auto) 0.10 0-0.5 K/uL Basophils # (Auto) 0.00 0-0.2 K/uL RDW Standard Deviation 54.4 36.4-46.3 fL RDW Coefficient of Variation 17.9 11.5-14.5 % Immature Granulocyte % (Auto) 0.1 % Immature Granulocyte # (Auto) 0.01 0.00-0.02 K/uL Red Blood Cell Morphology Unremarkable Assessment & Plan regular diet POD#1 stable for discharge
[2016-10-29 09:56] VITALS: BP 133/83; PULSE 68; TEMP 36.8; O2SAT 100
[2016-11-04] MEDS ORDERED: ASCO250C17 PO (05:28)
[2016-11-04] MEDS ORDERED: DOCU-94 PO (07:16)
[2016-11-04] MEDS ORDERED: MIRT15TA PO (08:25)
[2016-11-04] MEDS ORDERED: LISI-729 PO (08:45)
[2016-11-04] MEDS ORDERED: RIZA10TA18 PO (11:26)
[2016-11-04] MEDS ORDERED: POTA-65 PO (11:47)
[2016-11-04] MEDS ORDERED: PRLSR20 PO (12:11)
[2016-11-04] MEDS ORDERED: ZOLP10TA PO (14:23)
[2016-11-04] MEDS ORDERED: CHOL200010 PO (20:09)
[2016-11-04] MEDS ORDERED: SODIENE PR (20:09)
--- NOTE | 2016-11-11 10:40 | Discharge Summary ---
Discharge Summary Date of Service Nov 11, 2016. Discharge Summary Admission Date: Oct 28, 2016 at 05:30 Discharge Date: Oct 29, 2016 Discharge Disposition: Home Principal Diagnosis: Chronic pelvic pain, heavy menstrual bleeding, hx endometrial ablation Procedures: Total Laparoscopic hysterectomy with RSO, cystoscopy Medication Reconciliation Continued Medications: Acetaminophen (Tylenol) 500 Mg Tab 1000 MG PO Q6H PRN for Pain, TAB Aripiprazole (Abilify) 10 Mg Tab 15 MG PO HS Ascorbic Acid (Ascorbic Acid) 250 Mg Chw 500 MG PO QAM Cholecalciferol (Vitamin D) 2,000 Unit Cap 2000 INTER.UNIT PO QAM Cyanocobalamin (Vitamin B-12) 6,000 Mcg Sub 6000 MCG SL QAM Docusate Sodium (Colace) 100 Mg Cap 200 MG PO BID PRN for Constipation, CAP Dronabinol (Marinol) 2.5 Mg Cap 2.5 MG PO BID Fosaprepitant Dimeglumine (Emend) Unknown Strength Inj 1 DOSE IV WK ONE DOSE DIRECTED EVERY MONDAY Gabapentin (Neurontin) 300 Mg Cap 300 MG PO BID, CAP DAILY WITH LUNCH AND SUPPER Lactobacillus Acidophilus (Lactinex Granules) 1 Gm Pkt 1 PKT PO TIDM Lisinopril (Zestril) 5 Mg Tab 5 MG PO HS, TAB Lorazepam (Ativan) 1 Mg Tab 1 MG PO BID PRN for Anxiety, TAB Mirtazapine (Remeron) 15 Mg Tab 15 MG PO HS, TAB Nadolol (Corgard) 20 Mg Tab 40 MG PO QAM Omeprazole (Prilosec) 20 Mg Capcr 20 MG PO QAM, CAP Ondansetron (Ondansetron Odt) 8 Mg Soltab 8 MG PO Q8 PRN for Nausea ALLOW TABLET TO DISSOLVE ON TONGUE Pediatric Multiple Vitamin W/ (Flintstones Chewable) 1 Chw Chw 1 TAB PO BID Polyethylene Glycol 3350 (Miralax) 1 Pow Pow 17 GM PO TID PRN for Constipation Polysaccharide Iron Complex (Ferrex 150) 150 Mg Cap 150 MG PO TID Potassium Chloride (Potassium Chloride ER) 20 Meq Tab 20 MEQ PO QAM Rizatriptan Benzoate (Maxalt) 10 Mg Tab 10 MG PO UD PRN for Headache, TAB Sodium Phosphate/Biphosphate (Fleet Enema) Tamra 1 EA [place] DAILY PRN for Constipation, BTL Topiramate (Topamax) 100 Mg Tab 100 MG PO BID, TAB Valacyclovir (Valtrex) 500 Mg Tab 500 MG PO BID PRN for Outbreaks, TAB Zolpidem Tartrate (Ambien) 10 Mg Tab 10 MG PO HS, TAB Admission Information HPI (per Admitting provider): Patient is a 41 y/o with a long history of chronic abdominal and pelvic pain. Has a history of endometrial ablation for heavy bleeding but continues to have issues with bleeding. She does have a significant history of multiple abdominal surgeries. After counseling she agreed to proceed with a total laparoscopic hysterectomy. Physical Exam (per Admitting): General Appearance: WD/WN, no apparent distress Respiratory/Chest: chest non-tender, lungs clear Cardiovascular: regular rate, rhythm Abdomen/GI: normal bowel sounds, soft Extremities/Musculoskelatal: normal inspection, normal range of motion Neurologic/Psych: alert, oriented x 3 Skin: normal color, warm/dry, no rash Hospital Course Patient underwent a total laparoscopic hysterectomy on the day of admission. During her surgery her right ovary was noted to be enlarged and therefore the decision was made to remove the right tube and ovary. Her surgery went uncomplicated and she was sent to recovery with stable vital signs. Her postoperative course was uneventful. Her vallejo catheter was removed on POD # 1. Her diet and activity were also advanced. Her pain was controlled on oral pain medications and was discharged home on POD # 1. Total time spent on discharge = 30 mins This includes examination of the patient, discharge planning, medication reconciliation, and communication with other providers. Discharge Instructions POST OPERATIVE: BOWEL FUNCTION/MEDICATIONS: 1. Constipation pain and discomfort are the most common complaints 5-7 days after surgery. Points 2-6 address the things that can help. 2. Chewing gum can help stimulate the gut and help improve digestion and motility. 3. Milk of Magnesia 1-2 times per day until return of bowel function. 4. Colace is a stool softener that helps. Taking this 2-3 times per day until bowel function returns to normal is highly recommended. 5. Dulcolax is a laxative that may be used if several days have passed without a bowel movement. Alternatively Miralax may be used daily instead. 6. Drink plenty of fluids as this will also reduce constipation. 7. Narcotic pain medications will be prescribed by your physician. They are safe to use and we encourage you to use them. If you are not allergic, ibuprofen will also be prescribed. Many patients will be able to transition off of the narcotic medications to ibuprofen by postoperative day 3. ACTIVITY RECOMMENDATIONS: 1. Get plenty of rest and listen to your body. If you are tired, take a nap. 2. You may shower, but do not take a tub bath until you see your doctor at the 2 week post operative visit. 3. Absolutely NO intercourse and nothing in the vagina until you are examined by your doctor at the 6 week visit. At that visit it will be determined when such activities can be resumed. This can range from 6-12 weeks after your surgery depending on healing time. 4. The main physical activity in the first week should be walking. By the second week you can slowly increase activity. There are no limits on walking up and down stairs. 5. Do not lift more than 5-10 lbs for 4 weeks. Remember the "one-handed rule", i.e. if you can lift something with only one hand it's likely okay. 6. 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 "Overdoing it" can lead to incisions not healing, pain and vaginal bleeding , so again, listen to your body. 7. Driving can be resumed when you feel able. Do not drive within 24 hours of taking a narcotic medication. EXPECTATIONS: 1. Vaginal spotting, bleeding and discharge are common after surgery. There may even be an odor to the discharge which is often related to sutures used in the vagina. If you experience heavy vaginal bleeding, call the office number day or night [phone]. 2. Bladder discomfort is common after surgery from the catheter. This usually resolves in 1-2 weeks. 3. By the end of the 3rd or 4th week you should be feeling much better. It may take up to 6 weeks for your energy levels to return to normal. 4. Narcotic medications have side effects such as: dizziness, headache, nausea and/or vomiting. If you suspect your pain medication is causing problems, call our office and we may be able to prescribe an alternate medication. 5. The skin incisions are often covered with a liquid bandage. This will gradually peel off over time. CALL THE OFFICE IF YOU HAVE ANY OF THE FOLLOWIN. Temperature of 101 degrees or higher. 2. Severe abdominal or pelvic pain not relieved by pain medication. 3. Persistent nausea or vomiting. 4. Increased pain with urination or difficulty urinating. 5. Bright red bleeding that soaks more than 1 pad per hour. CONTACT PHONE NUMBERS: Main Office: [phone] FOLLOW-UP: Post-Operative Appointments: * Individual instructions will have been given about the timing of your first examination, but this is usually at the end of the second week home. * You will need to call the office at [phone] soon after discharge to make the appointment for your post-op check-up if it has not already been scheduled. * Additional information regarding activity, sexual intercourse and when to return to work will be given at this appointment. WE WISH YOU A SPEEDY RECOVERY!
[2017-01-17] MEDS ORDERED: [UNRECOGNIZED DRUG - CODE] IV (09:15)
[2017-01-17] MEDS ORDERED: NADO20TA15 PO (13:14)
[2017-01-17] MEDS ORDERED: DRON2.5C PO (14:23)
[2017-01-17] MEDS ORDERED: POLY335019 PO (20:16)
[2017-02-22] MEDS ORDERED: MAXALT PO (12:05)
[2017-03-19] MEDS ORDERED: POLY150C4 PO (16:36)
[2017-04-19] MEDS ORDERED: SERT50TA PO (12:08)
[2017-05-24] MEDS ORDERED: LISI-461 PO (12:13)
[2017-05-24] MEDS ORDERED: CLON0.1T12 PO (12:13)
[2017-05-24] MEDS ORDERED: TOPI100T20 PO (13:24)
[2017-05-24] MEDS ORDERED: ATV/1 PO (14:23)
[2017-05-24] MEDS ORDERED: GABA-113 PO (14:23)
[2017-05-24] MEDS ORDERED: ZFRODT/8 PO (15:40)
[2017-05-24] MEDS ORDERED: PEDICHW53 PO (16:36)
[2017-05-24] MEDS ORDERED: RIZA10TA18 PO (16:36)
[2017-05-24] MEDS ORDERED: [UNRECOGNIZED DRUG - CODE] IV (16:36)
[2017-05-24] MEDS ORDERED: ALBUAER INH (16:36)
[2017-05-24] MEDS ORDERED: POTA20TA13 PO (16:36)
[2017-05-24] MEDS ORDERED: [UNRECOGNIZED DRUG - CODE] IV (16:38)
[2017-05-24] MEDS ORDERED: CYNI1000 IM (16:38)
[2017-05-24] MEDS ORDERED: ABL/15 PO (18:27)
[2017-05-24] MEDS ORDERED: SERT1TAB68 PO (18:27)
[2017-05-24] MEDS ORDERED: VALA500T60 PO (20:00)
[2017-05-24] MEDS ORDERED: TRMCR130WC TOP (21:00)
[2017-05-24] MEDS ORDERED: FLVHFA110 INH (21:00)
[2017-05-24] MEDS ORDERED: ZOLP10TA6 PO (21:08)
[2017-05-24] MEDS ORDERED: ACET-1256 PO (21:35)
[2017-05-24] MEDS ORDERED: MIRT15TA3 PO (22:54)
== END 2016-10-29 11:30 | disposition home or self-care (01) | DRG 983 ==
LOC: ENRESERVDT → ENRESERVTM → C.ACU 05:12 → C.MS4N 05:30
PROVIDERS: ADMIT Obstetrics & Gynecology; ATTEND Obstetrics & Gynecology
PROC: 0UT54ZZ Resection of Right Fallopian Tube, Percutaneous Endoscopic Approach (ICD-10-PCS; principal; 2016-10-28 07:00)
PROC: 0UT94ZZ Resection of Uterus, Percutaneous Endoscopic Approach (ICD-10-PCS; principal; 2016-10-28 07:00)
PROC: 0UT04ZZ Resection of Right Ovary, Percutaneous Endoscopic Approach (ICD-10-PCS; principal; 2016-10-28 07:00)
PROC: 0TJB8ZZ Inspection of Bladder, Via Natural or Artificial Opening Endoscopic (ICD-10-PCS; principal; 2016-10-28 07:00)
PROC: 0UTC4ZZ Resection of Cervix, Percutaneous Endoscopic Approach (ICD-10-PCS; principal; 2016-10-28 07:00)
DX: R10.2 Pelvic and perineal pain (principal); N92.0 Excessive and frequent menstruation with regular cycle; Z98.890 Other specified postprocedural states; N83.291 Other ovarian cyst, right side; I10 Essential (primary) hypertension; J45.909 Unspecified asthma, uncomplicated; F41.9 Anxiety disorder, unspecified; D64.9 Anemia, unspecified; G40.901 Epilepsy, unspecified, not intractable, with status epilepticus; M19.90 Unspecified osteoarthritis, unspecified site; M26.609 Unspecified temporomandibular joint disorder, unspecified side; M54.5 Low back pain; K21.9 Gastro-esophageal reflux disease without esophagitis; K44.9 Diaphragmatic hernia without obstruction or gangrene; E66.9 Obesity, unspecified; Z68.37 Body mass index [BMI] 37.0-37.9, adult; F31.9 Bipolar disorder, unspecified; Z98.84 Bariatric surgery status; Z79.899 Other long term (current) drug therapy

== ENCOUNTER 2016-11-04 20:20 | Emergency (ER) | payer OTHER ==
[~2016-11-04] VITALS: Ht 157.5 cm; Wt 97.4 kg
[~2016-11-04 20:20] MED LIST changes: +ASCO250C17 PO; +CHOL200010 PO; +DOCU-94 PO; +LISI-729 PO; +MIRT15TA PO; +MTR600X PO; +OXYC-57 PO; +POTA-65 PO; +PRLSR20 PO; +RIZA10TA18 PO; +SODIENE PR; +ZOLP10TA PO
[2016-11-04 20:24] VITALS: Ht 157.5 cm; Wt 97.4 kg
[2016-11-04] MEDS ORDERED: OXYC-57 PO (21:02)
[2016-11-04] MEDS ORDERED: CYAN6000 SL (21:04)
[2016-11-04] MEDS ORDERED: HYDROmorphone INJ 0.5 MG/0.5 ML SYR IV STA ×2 (21:07→23:54)
[2016-11-04] MEDS ORDERED: LACT1GRA PO (21:24)
--- NOTE | 2016-11-04 21:32 | EMERGENCY ROOM VISIT NOTE ---
History First contact with patient: 20:47 Chief Complaint: ABDOMINAL PAIN Stated Complaint: HYSTERECTOMY 1 POST OP,ABD PAIN Nursing Triage Summary: abd surgery 1 week ago hyster incision not feeling the same History of Present Illness The patient is a 41 year old female who presents s/p Laparoscopic Hysterectomy POD # 7 (Dr. Mir) secondary to heavy menstrual bleeding and chronic pelvic pain presents to the Emergency Room with complaints of 2 day Hx of post-operative pain at laparoscopic incisions . She denies any other abdominal pain or pelvic pain, vaginal bleeding. She has been taking Percocet following discharge from hospital and had no complaints until 2 days prior to arrival where she experienced 5-6/10 pain at abdominal laparoscopic incisions x 2 on left side of abdomen. She denies puss or bleeding from incisional wounds. She also reports 2 day Hx of progressive SOB on Exertion when climbing stairs at home. Pt denies headache, , fevers, chest pain, nausea, vomiting, diarrhea, pain with urination, and melena. Review of Systems See HPI for pertinent positives & negatives. A total of 10 systems reviewed and were otherwise negative. Past Medical/Surgical History Medical Problems: (1) a-port placement (2) Abdominal pain (3) Agoraphobia (4) Asthma (5) Bipolar I disorder (6) Chronic anemia (7) Chronic pelvic pain in female (8) Dynamic ileus (9) H/O drug abuse (10) Heavy menstrual bleeding (11) History of esophageal dilatation (12) Ileus (13) Polycystic kidney disease, adult type (14) Postgastric surgery syndrome (15) PTSD (16) Tubal ligation evaluation Surgical Problems: (1) excessive skin removal (2) gastric revision procedure with gastric bypass (3) H/O colonoscopy (4) H/O esophagogastroduodenoscopy (5) H/O exploratory laparotomy (6) H/O gastric bypass (7) H/O ventral hernia repair (8) H/O wisdom tooth extraction (9) lysis of adhesions (10) S/P cholecystectomy (11) S/P endometrial ablation (12) S/P laparoscopic hysterectomy (13) S/P panniculectomy (14) S/P partial gastrectomy (15) Status post unilateral salpingo-oophorectomy (16) wedge biopsy liver Social History Problems: (1) Gastroesophageal reflux disease (2) Hyperlipidemia Family History Cancer MOTHER (lung) Diabetes mellitus FATHER FH: gallbladder disease FH: lung disease FHx: heart disease FATHER Hypertension MOTHER Stroke FATHER Social History Smoking Status: Never Smoker Alcohol Use: none Drug Use: none Marital Status: , in relationship Housing Status: lives with significant other Occupation Status: employed Current/Historical Medications Scheduled Aripiprazole (Abilify), 15 MG PO HS Ascorbic Acid (Ascorbic Acid), 500 MG PO QAM Cholecalciferol (Vitamin D), 2,000 INTER.UNIT PO QAM Cyanocobalamin (Vitamin B-12), 6,000 MCG SL QAM Cyanocobalamin (Cyanocobalamin), 1 DOSE IM Q3 MONTHS Dronabinol (Marinol), 2.5 MG PO BID Fluticasone Propionate (Flovent Hfa), 2 PUFFS INH BID Fosaprepitant Dimeglumine (Emend), 1 DOSE IV WK Gabapentin (Neurontin), 300 MG PO BID Lactobacillus Acidophilus (Lactinex Granules), 1 PKT PO TIDM Levofloxacin (Levaquin), 750 MG PO DAILY Lisinopril (Zestril), 5 MG PO HS Mirtazapine (Remeron), 15 MG PO HS Nadolol (Corgard), 40 MG PO QAM Omeprazole (Prilosec), 20 MG PO QAM Pediatric Multiple Vitamin W/ (Flintstones Chewable), 1 TAB PO BID Polysaccharide Iron Complex (Ferrex 150), 150 MG PO TID Potassium Chloride (Potassium Chloride ER), 20 MEQ PO QAM Topiramate (Topamax), 100 MG PO BID Zolpidem Tartrate (Ambien), 10 MG PO HS Scheduled PRN Acetaminophen (Tylenol), 1,000 MG PO Q6H PRN for Pain Albuterol Sulfate (Proair Respiclick), 2 PUFFS INH Q4H PRN for SOB/Wheezing Docusate Sodium (Colace), 200 MG PO BID PRN for Constipation Lorazepam (Ativan), 1 MG PO BID PRN for Anxiety Ondansetron (Ondansetron Odt), 8 MG PO Q8 PRN for Nausea Oxycodone/Acetaminophen 5MG/325MG (Percocet 5MG/325MG), 1-2 TABLETS PO Q4H PRN for SHEPARD/Cramping/Edema/Pain Polyethylene Glycol 3350 (Miralax), 17 GM PO TID PRN for Constipation Rizatriptan Benzoate (Maxalt), 10 MG PO UD PRN for Headache Sodium Phosphate/Biphosphate (Fleet Enema), 1 EA AL DAILY PRN for Constipation Triamcinolone Acet (Aristocort 0.1%), 1 APPLN TOP DAILY PRN for Itching Valacyclovir (Valtrex), 500 MG PO BID PRN for Outbreaks Allergies Coded Allergies: Morphine (Verified Allergy, Severe, TONGUE SWELLING, difficulty breathing/ wheezing, 10/28/16) tolerates hydromorphone Colestipol (Verified Allergy, Intermediate, red rash (no itching), 10/28/16) Cat Dander (Verified Allergy, Unknown, ITCHY WATERY EYES , 10/28/16) NUTS (Verified Allergy, Unknown, skin test showed nut allergy, 10/28/16) per pt, eats peanuts without issue Scopolamine (Verified Adverse Reaction, Severe, Seizure, 10/28/16) SEIZURES ONLY WHEN COMBINED W/ WELLBUTRIN. Promethazine (Verified Adverse Reaction, Intermediate, "CAN'T SIT STILL", 10/28/16) Bupropion (Verified Adverse Reaction, Unknown, Seizure, 10/28/16) SEIZURES WHEN WELLBUTRIN IS COMBINED W/ SCOPALAMINE. Physical Exam Vital Signs Date Time Temp Pulse Resp B/P Pulse Ox O2 Delivery O2 Flow Rate FiO2 11/05/16 00:45 78 16 166/89 98 11/04/16 23:25 72 16 169/103 98 Room Air 11/04/16 23:05 71 20 137/92 99 Room Air 11/04/16 22:11 36.6 64 18 183/112 100 Room Air 11/04/16 20:24 36.5 82 18 181/126 99 Room Air Physical Exam GENERAL: alert, anxious no distress, non-toxic EYE EXAM: normal conjunctiva, PERRL and EOM's grossly intact NECK: supple, no nuchal rigidity, no adenopathy, non-tender LUNGS: Clear to auscultation. Normal chest wall mechanics HEART: no murmurs, S1 normal and S2 normal ABDOMEN: abdomen soft Laparoscopic surgical scars, LUQ, LLQ tender to palpitation, no significant erythema, swelling, drainage, bleeding, surgical scars from Gastric bypass sc, normo-active bowel sounds, no masses, no rebound or guarding. BACK: Back is symmetrical on inspection and there is no deformity SKIN: no rashes and no bruising UPPER EXTREMITIES: upper extremities are grossly normal. LOWER EXTREMITIES: No pitting edema. NEURO EXAM: Normal sensorium, cranial nerves II-XII grossly intact, normal speech, no gross weakness of arms, no gross weakness of legs. Medical Decision & Procedures ER Provider Diagnostic Interpretation: CTA Chest(Statrad): Comparison: CTA chest, NO evidence of PE Patchy ground glass consolidation throughout L Upper and Lower Lobes, suspicious for PNA. Aspiration is less likely given the distribution NO pleural effusion or pneumothorax Heart size normal NO pericardial effusion Gall bladder surgically absent Post surgical changes near GE Junction. Small Hiatal hernia Several small calcified granulomas in spleen Laboratory Results 11/04/16 21:55 Red Blood Count 3.25, Mean Corpuscular Volume 81.5, Mean Corpuscular Hemoglobin 26.2, Mean Corpuscular Hemoglobin Concent 32.1, Mean Platelet Volume 9.5, Neutrophils (%) (Auto) 60.5, Lymphocytes (%) (Auto) 26.3, Monocytes (%) (Auto) 9.8, Eosinophils (%) (Auto) 2.9, Basophils (%) (Auto) 0.2, Neutrophils # (Auto) 3.77, Lymphocytes # (Auto) 1.64, Monocytes # (Auto) 0.61, Eosinophils # (Auto) 0.18, Basophils # (Auto) 0.01 11/04/16 21:55 Test 11/04/16 21:22 11/04/16 21:55 Urine Color YELLOW Urine Appearance CLEAR (CLEAR) Urine pH 7.5 (4.5-7.5) Urine Specific [place] 1.017 (1.000-1.030) Urine Protein NEG (NEG) Urine Glucose (UA) NEG (NEG) Urine Ketones NEG (NEG) Urine Occult Blood NEG (NEG) Urine Nitrite NEG (NEG) Urine Bilirubin NEG (NEG) Urine Urobilinogen NEG (NEG) Urine Leukocyte Esterase NEG (NEG) Urine WBC (Auto) 0 /hpf (0-5) Urine RBC (Auto) 0-4 /hpf (0-4) Urine Hyaline Casts (Auto) 0 /lpf (0-5) Urine Epithelial Cells (Auto) 10-20 /lpf (0-5) Urine Bacteria (Auto) NEG (NEG) White Blood Count 6.23 K/uL (4.8-10.8) Red Blood Count 3.25 M/uL (4.2-5.4) Hemoglobin 8.5 g/dL (12.0-16.0) Hematocrit 26.5 % (37-47) Mean Corpuscular Volume 81.5 fL (80-100) Mean Corpuscular Hemoglobin 26.2 pg (25-34) Mean Corpuscular Hemoglobin Concent 32.1 g/dl (32-36) Platelet Count 238 K/uL (130-400) Mean Platelet Volume 9.5 fL (7.4-10.4) Neutrophils (%) (Auto) 60.5 % Lymphocytes (%) (Auto) 26.3 % Monocytes (%) (Auto) 9.8 % Eosinophils (%) (Auto) 2.9 % Basophils (%) (Auto) 0.2 % Neutrophils # (Auto) 3.77 K/uL (1.4-6.5) Lymphocytes # (Auto) 1.64 K/uL (1.2-3.4) Monocytes # (Auto) 0.61 K/uL (0.11-0.59) Eosinophils # (Auto) 0.18 K/uL (0-0.5) Basophils # (Auto) 0.01 K/uL (0-0.2) RDW Standard Deviation 55.3 fL (36.4-46.3) RDW Coefficient of Variation 18.4 % (11.5-14.5) Immature Granulocyte % (Auto) 0.3 % Immature Granulocyte # (Auto) 0.02 K/uL (0.00-0.02) Schistocytes 1+ Anion Gap 8.0 mmol/L (3-11) Est Creatinine Clear Calc Drug Dose 135.4 ml/min Estimated GFR () 131.0 Estimated GFR (Non- 113.1 BUN/Creatinine Ratio 17.3 (10-20) Calcium Level 8.0 mg/dl (8.5-10.1) Total Bilirubin 0.3 mg/dl (0.2-1) Direct Bilirubin < 0.1 mg/dl (0-0.2) Aspartate Amino Transf (AST/SGOT) 19 U/L (15-37) Alanine Aminotransferase (ALT/SGPT) 75 U/L (12-78) Alkaline Phosphatase 145 U/L (45-117) Total Protein 6.2 gm/dl (6.4-8.2) Albumin 2.9 gm/dl (3.4-5.0) Lipase 257 U/L (73-393) Medications Administered Medications (Trade) Dose Ordered Sig/Rigo Route Start Time Stop Time Status Last Admin Dose Admin Hydromorphone HCl (Dilaudid Inj) 0.5 mg NOW STAT IV 11/04/16 21:07 11/04/16 21:11 DC 11/04/16 22:02 0.5 MG Albuterol/ Ipratropium (Duoneb) 3 ml NOW STAT INH 11/04/16 22:34 11/04/16 22:35 DC 11/04/16 22:47 3 ML Lorazepam (Ativan Inj) 0.5 mg NOW STAT IV 11/04/16 22:40 11/04/16 22:43 DC 11/04/16 22:47 0.5 MG Potassium Chloride (Klor-Con M10) 20 meq NOW STAT PO 11/04/16 22:47 11/04/16 22:49 DC 11/04/16 23:28 20 MEQ Hydromorphone HCl (Dilaudid Inj) 0.5 mg NOW STAT IV 11/04/16 23:54 11/04/16 23:55 DC 11/05/16 00:14 0.5 MG Magnesium Citrate (Citrate Of Magnesia Soln) 296 ml NOW STAT PO 11/05/16 00:15 11/05/16 00:17 DC 11/05/16 00:34 296 ML Levofloxacin (Levaquin Tab) 750 mg NOW STAT PO 11/05/16 00:17 11/05/16 00:19 DC 11/05/16 00:34 750 MG Heparin Sodium (Porcine) (Heparin 100 Unit/ml 5ml Flush) 5 ml STK-MED ONCE .ROUTE 11/05/16 00:38 11/05/16 00:39 DC 11/05/16 00:36 5 ML Medical Decision Differential diagnoses includes but is not limited to gastritis, peptic ulcer disease, GERD, gallbladder disease, pancreatitis, small bowel obstruction, acute coronary syndrome, pericarditis, ischemic bowel, irritable bowel disease, irritable bowel syndrome, appendicitis, diverticulitis, malignancy, hernia, urinary tract infection, torsion, , perforation, trauma, infectious. 41 yo F s/p Lap. Hysterectomy POD #7 p/w post-operative pain at laparoscopic incisions despite taking Percocet at home. CBC: H/H 8.5/26.5 (previous 8/25.5 on 10/29/16), anemia likely due to recent surgery., improving BMP K 3.4 CO2 20 Chloride 116 Lipase negative UA negative CXR: No acute cardiopulmonary abnormality. Abdominal XR 1. Nonobstructed abdominal bowel gas pattern noting moderate constipation. 2. No evidence of intraperitoneal free air is seen. CT PE Study: negative for PE, findings suggestive of Pneumonia in Left Upper/ Lower Lobe -Given .5 mg Dilaudid x2 -Given duoneb treatment -Given 20 meq Potassium chloride -Given Mg Citrate to take home -Given 1 dose Levaquin 750 mg -Patient's pain at her laparoscopic incisions was not particularly unusual given recent surgery. Surgical wounds did not appear infected, bleeding, or reopened on exam. Pain was improved with Dilaudid. Patient's SOB could be attributed to Pneumonia given the CT results. Post Surgical PE was ruled out with CT. Patient's hx of asthma could have also been a contributor to her SOB as she reported she improved following administration of nebulizer treatment. Upon reevaluation, the patient is feeling better. I discussed the findings and the treatment plan with the patient. She verbalizes agreement and understanding. She was discharged home with followup To Dr. Bobo (PCP) and Dr. Mir (SUPER[employer]) Impression Primary Impression: Post-operative pain Additional Impression: SOB (shortness of breath) on exertion Departure Information Dispostion Home / Self-Care Condition GOOD Prescriptions Levofloxacin (Levaquin) 750 Mg Tab 750 MG PO DAILY for 7 Days, #7 TAB Prov: Nikolay Carrillo MD 11/05/16 Referrals José Miguel Bobo M.D. (PCP) Patient Instructions ED Pneumonia, [facility] Additional Instructions -Please followup with Primary Care provider within 48 hrs -Please take medication as prescribed -If you experience worsening Chest pain, Shortness of breath, fever>100.4, pain uncontrolled by medication, return to Emergency Dept or call clinic Resident Tracking Resident Involvement: Resident Care Provided Care Provided: Adult ED Problem Qualifiers
[2016-11-04 21:57] LABS: URINE APPEARANCE CLEAR (CLEAR); URINE BILIRUBIN NEG (NEG); URINE COLOR YELLOW; URINE NITRITE NEG (NEG); URINE PH 7.5 (4.5-7.5); URINE SPECIFIC GRAVITY 1.017 (1.000-1.030); UROBILINOGEN NEG (NEG); ZZUR CULT IF INDIC CLEAN CATCH NO
[2016-11-04 22:00] LABS: MANUAL MICROSCOPIC REQUIRED? NO; REVIEW REQ? NO
--- NOTE | 2016-11-04 22:02 | EMERGENCY ROOM VISIT NOTE ---
ED Visit Note First contact with patient: 20:47 Resident Physician Supervision Note: I interviewed and examined the patient. Discussed with Dr. Carrillo and agree with findings and plan as documented in the note. Documented By: Isaac Berry Problem List Medical Problems: (1) a-port placement Status: Chronic (2) Agoraphobia Status: Chronic (3) Asthma Status: Chronic (4) Bipolar I disorder Status: Chronic (5) Chronic anemia Status: Chronic (6) H/O drug abuse Permanent Comment: heroin, alcohol Status: Chronic (7) History of esophageal dilatation Permanent Comment: 2009 Status: Chronic (8) Polycystic kidney disease, adult type Status: Chronic (9) Postgastric surgery syndrome Status: Chronic (10) PTSD Status: Chronic (11) Tubal ligation evaluation Status: Chronic Surgical Problems: (1) excessive skin removal Status: Chronic (2) gastric revision procedure with gastric bypass Permanent Comment: 2008 Status: Chronic (3) H/O colonoscopy Status: Chronic (4) H/O esophagogastroduodenoscopy Status: Chronic (5) H/O exploratory laparotomy Permanent Comment: 2009, 2010, 2012 Status: Chronic (6) H/O gastric bypass Status: Chronic (7) H/O ventral hernia repair Status: Chronic (8) H/O wisdom tooth extraction Status: Chronic (9) lysis of adhesions Status: Chronic (10) S/P cholecystectomy Status: Chronic (11) S/P endometrial ablation Status: Chronic (12) S/P panniculectomy Permanent Comment: 2010 Status: Chronic (13) S/P partial gastrectomy Status: Chronic (14) wedge biopsy liver Permanent Comment: 2012 Status: Chronic Social History Problems: (1) Gastroesophageal reflux disease Status: Chronic (2) Hyperlipidemia Status: Chronic Current/Historical Medications Scheduled Aripiprazole (Abilify), 15 MG PO HS Ascorbic Acid (Ascorbic Acid), 500 MG PO QAM Cholecalciferol (Vitamin D), 2,000 INTER.UNIT PO QAM Cyanocobalamin (Vitamin B-12), 6,000 MCG SL QAM Cyanocobalamin (Cyanocobalamin), 1 DOSE IM Q3 MONTHS Dronabinol (Marinol), 2.5 MG PO BID Fluticasone Propionate (Flovent Hfa), 2 PUFFS INH BID Fosaprepitant Dimeglumine (Emend), 1 DOSE IV WK Gabapentin (Neurontin), 300 MG PO BID Lactobacillus Acidophilus (Lactinex Granules), 1 PKT PO TIDM Lisinopril (Zestril), 5 MG PO HS Mirtazapine (Remeron), 15 MG PO HS Nadolol (Corgard), 40 MG PO QAM Omeprazole (Prilosec), 20 MG PO QAM Pediatric Multiple Vitamin W/ (Flintstones Chewable), 1 TAB PO BID Polysaccharide Iron Complex (Ferrex 150), 150 MG PO TID Potassium Chloride (Potassium Chloride ER), 20 MEQ PO QAM Topiramate (Topamax), 100 MG PO BID Zolpidem Tartrate (Ambien), 10 MG PO HS Scheduled PRN Acetaminophen (Tylenol), 1,000 MG PO Q6H PRN for Pain Albuterol Sulfate (Proair Respiclick), 2 PUFFS INH Q4H PRN for SOB/Wheezing Docusate Sodium (Colace), 200 MG PO BID PRN for Constipation Lorazepam (Ativan), 1 MG PO BID PRN for Anxiety Ondansetron (Ondansetron Odt), 8 MG PO Q8 PRN for Nausea Oxycodone/Acetaminophen 5MG/325MG (Percocet 5MG/325MG), 1-2 TABLETS PO Q4H PRN for SHEPARD/Cramping/Edema/Pain Polyethylene Glycol 3350 (Miralax), 17 GM PO TID PRN for Constipation Rizatriptan Benzoate (Maxalt), 10 MG PO UD PRN for Headache Sodium Phosphate/Biphosphate (Fleet Enema), 1 EA UT DAILY PRN for Constipation Triamcinolone Acet (Aristocort 0.1%), 1 APPLN TOP DAILY PRN for Itching Valacyclovir (Valtrex), 500 MG PO BID PRN for Outbreaks Allergies Coded Allergies: Morphine (Verified Allergy, Severe, TONGUE SWELLING, difficulty breathing/ wheezing, 10/28/16) tolerates hydromorphone Colestipol (Verified Allergy, Intermediate, red rash (no itching), 10/28/16) Cat Dander (Verified Allergy, Unknown, ITCHY WATERY EYES , 10/28/16) NUTS (Verified Allergy, Unknown, skin test showed nut allergy, 10/28/16) per pt, eats peanuts without issue Scopolamine (Verified Adverse Reaction, Severe, Seizure, 10/28/16) SEIZURES ONLY WHEN COMBINED W/ WELLBUTRIN. Promethazine (Verified Adverse Reaction, Intermediate, "CAN'T SIT STILL", 10/28/16) Bupropion (Verified Adverse Reaction, Unknown, Seizure, 10/28/16) SEIZURES WHEN WELLBUTRIN IS COMBINED W/ SCOPALAMINE. Vital Signs Date Time Temp Pulse Resp B/P Pulse Ox O2 Delivery O2 Flow Rate FiO2 11/04/16 20:24 36.5 82 18 181/126 99 Room Air Laboratory Results Test 11/04/16 21:22 11/04/16 21:55 Urine Color YELLOW Urine Appearance CLEAR (CLEAR) Urine pH 7.5 (4.5-7.5) Urine Specific [place] 1.017 (1.000-1.030) Urine Protein NEG (NEG) Urine Glucose (UA) NEG (NEG) Urine Ketones NEG (NEG) Urine Occult Blood NEG (NEG) Urine Nitrite NEG (NEG) Urine Bilirubin NEG (NEG) Urine Urobilinogen NEG (NEG) Urine Leukocyte Esterase NEG (NEG) Urine WBC (Auto) 0 /hpf (0-5) Urine RBC (Auto) 0-4 /hpf (0-4) Urine Hyaline Casts (Auto) 0 /lpf (0-5) Urine Epithelial Cells (Auto) 10-20 /lpf (0-5) Urine Bacteria (Auto) NEG (NEG) Departure Information Referrals José Miguel Bobo M.D. (PCP) Patient Instructions My [facility]
[2016-11-04 22:03] LABS: BASO % 0.2 %; BASO ABS # 0.01 K/uL (0-0.2); EOS % 2.9 %; HEMATOCRIT 26.5 % (37-47); IG% 0.3 %; LYMPH % 26.3 %; LYMPH ABS # 1.64 K/uL (1.2-3.4); MEAN CELL VOLUME 81.5 fL (80-100); MEAN CORPUSCULAR HEMOGLOBIN 26.2 pg (25-34); MEAN CORPUSCULAR HGB CONC 32.1 g/dl (32-36); MEAN PLATELET VOLUME 9.5 fL (7.4-10.4); MONO % 9.8 %; NEUT % 60.5 %; PLATELET COUNT 238 K/uL (130-400); RED BLOOD COUNT 3.25 M/uL (4.2-5.4); WHITE BLOOD COUNT 6.23 K/uL (4.8-10.8)
[2016-11-04 22:11] VITALS: TEMP 36.6
[2016-11-04 22:27] LABS: COMPLETE YES; SCHISTOCYTES 1+
[2016-11-04 22:29] LABS: ALT/SGPT 75 U/L (12-78); BLOOD UREA NITROGEN 10 mg/dl (7-18); BUN/CREATININE RATIO 17.3 (10-20); CARBON DIOXIDE 20 mmol/L (21-32); CHLORIDE 116 mmol/L (98-107); CREATININE 0.59 mg/dl (0.60-1.20); GLUCOSE 81 mg/dl (70-99); POTASSIUM 3.4 mmol/L (3.5-5.1); SODIUM 144 mmol/L (136-145)
[2016-11-04 22:32] LABS: ALKALINE PHOSPHATASE 145 U/L (45-117); AST/SGOT 19 U/L (15-37)
[2016-11-04] MEDS ORDERED: ALBUT/IPRATROP 3MG/0.5MG NEB 3 ML VIAL INH STA (22:34)
[2016-11-04] MEDS ORDERED: LORAZEPAM 2 MG/ML 1 ML VIAL IV STA (22:40)
[2016-11-04] MEDS ORDERED: OPTIRAY 320 IV PRN (22:45)
[2016-11-04] MEDS ORDERED: POTASSIUM CHLORIDE 10 MEQ TABCR PO STA (22:47)
[2016-11-04] MEDS ORDERED: ABL10 PO (22:54)
--- NOTE | 2016-11-04 22:55 | DIAGNOSTIC IMAGING REPORT ---
ABDOMEN 2 VIEWS CLINICAL HISTORY: Generalized abdominal pain. Recent surgery. FINDINGS: Supine and erect abdominal radiographs are compared to study dated 03/19/2016. There is a nonobstructed abdominal bowel gas pattern. No evidence of intraperitoneal free air is seen. Moderate colonic fecal retention is observed. Cholecystectomy clips are identified in the right upper quadrant. A surgical clip is noted in the left pelvis. There are numerous pelvic phleboliths. The bony structures appear intact. The lung bases are clear as imaged. IMPRESSION: 1. Nonobstructed abdominal bowel gas pattern noting moderate constipation. 2. No evidence of intraperitoneal free air is seen. Electronically signed by: Xu Vigil M.D. 11/04/2016 10:53 PM Dictated Date/Time: 11/04/2016 10:52 PM
--- NOTE | 2016-11-04 22:56 | DIAGNOSTIC IMAGING REPORT ---
TWO VIEW CHEST CLINICAL HISTORY: Dyspnea. FINDINGS: PA and lateral chest radiographs are compared to study dated 08/07/2016. A left subclavian central venous infusion port is unchanged in position. The heart is top normal for projection. There is mild atherosclerotic calcification of the thoracic aorta. Linear atelectasis is seen in left midlung. No airspace consolidation is identified typical for pneumonia and there is no pleural effusion. There is no pneumothorax. The skeletal structures are osteopenic. Degenerative change is noted throughout the thoracic spine. Cholecystotomy clips are identified in the right upper quadrant. IMPRESSION: No acute cardiopulmonary abnormality. Electronically signed by: Xu Vigil M.D. 11/04/2016 10:54 PM Dictated Date/Time: 11/04/2016 10:53 PM
[2016-11-04] MEDS ORDERED: POLY150C4 PO (23:03)
[2016-11-05] MEDS ORDERED: LEVO1TAB35 PO (00:12)
[2016-11-05] MEDS ORDERED: MAGNESIUM CITRATE 296 ML/BTL PO STA (00:15)
[2016-11-05] MEDS ORDERED: LEVOFLOXACIN 250 MG TAB PO STA (00:17)
[2016-11-05 00:45] VITALS: BP 166/89; PULSE 78; O2SAT 98
--- NOTE | 2016-11-05 07:05 | DIAGNOSTIC IMAGING REPORT ---
CHEST CTA for PULMONARY ARTERIES CT DOSE: 595.58 mGy.cm HISTORY: Short of breath. TECHNIQUE: Multiaxial CT images of the chest were performed following the intravenous administration of contrast to evaluate the pulmonary arteries. Maximal intensity projection images were also obtained. COMPARISON STUDY: Chest CTA 02/07/2016. FINDINGS: Punctate calcified granulomas within the spleen. Cholecystectomy. The liver is unremarkable. Small hiatus hernia. Calcified subcarinal left hilar lymph nodes. No mediastinal or hilar lymphadenopathy. Left Port-A-Cath terminates in the distal SVC. The heart is normal in size. No pleural or pericardial effusions. Normal caliber thoracic aorta with no evidence for dissection. No evidence for pulmonary embolus. No pneumothorax. Patchy groundglass and nodular airspace opacities within the left upper and lower lobes. IMPRESSION: 1. No evidence for pulmonary embolus. 2. Patchy groundglass and nodular airspace opacities within the left upper and lower lobes. This likely represents a pneumonia. Recommend follow-up to resolution. Electronically signed by: Jon Crane M.D. 11/05/2016 7:03 AM Dictated Date/Time: 11/05/2016 6:58 AM
[2017-01-17] MEDS ORDERED: [UNRECOGNIZED DRUG - CODE] IV (09:15)
[2017-01-17] MEDS ORDERED: NADO20TA15 PO (13:14)
[2017-01-17] MEDS ORDERED: DRON2.5C PO (14:23)
[2017-01-17] MEDS ORDERED: POLY335019 PO (20:16)
[2017-02-22] MEDS ORDERED: MAXALT PO (12:05)
[2017-03-19] MEDS ORDERED: POLY150C4 PO (16:36)
[2017-04-19] MEDS ORDERED: SERT50TA PO (12:08)
[2017-05-24] MEDS ORDERED: LISI-461 PO (12:13)
[2017-05-24] MEDS ORDERED: CLON0.1T12 PO (12:13)
[2017-05-24] MEDS ORDERED: TOPI100T20 PO (13:24)
[2017-05-24] MEDS ORDERED: ATV/1 PO (14:23)
[2017-05-24] MEDS ORDERED: GABA-113 PO (14:23)
[2017-05-24] MEDS ORDERED: ZFRODT/8 PO (15:40)
[2017-05-24] MEDS ORDERED: RIZA10TA18 PO (16:36)
[2017-05-24] MEDS ORDERED: POTA20TA13 PO (16:36)
[2017-05-24] MEDS ORDERED: PEDICHW53 PO (16:36)
[2017-05-24] MEDS ORDERED: [UNRECOGNIZED DRUG - CODE] IV (16:36)
[2017-05-24] MEDS ORDERED: ALBUAER INH (16:36)
[2017-05-24] MEDS ORDERED: [UNRECOGNIZED DRUG - CODE] IV (16:38)
[2017-05-24] MEDS ORDERED: CYNI1000 IM (16:38)
[2017-05-24] MEDS ORDERED: ABL/15 PO (18:27)
[2017-05-24] MEDS ORDERED: SERT1TAB68 PO (18:27)
[2017-05-24] MEDS ORDERED: VALA500T60 PO (20:00)
[2017-05-24] MEDS ORDERED: FLVHFA110 INH (21:00)
[2017-05-24] MEDS ORDERED: TRMCR130WC TOP (21:00)
[2017-05-24] MEDS ORDERED: ZOLP10TA6 PO (21:08)
[2017-05-24] MEDS ORDERED: ACET-1256 PO (21:35)
[2017-05-24] MEDS ORDERED: MIRT15TA3 PO (22:54)
== END 2016-11-05 00:47 | disposition home or self-care (01) ==
LOC: C.EDB 20:22 → C.EDC 11-05 00:47
DX: G89.18 Other acute postprocedural pain (principal); R06.09 Other forms of dyspnea; F40.00 Agoraphobia, unspecified; J45.909 Unspecified asthma, uncomplicated; F31.9 Bipolar disorder, unspecified; D64.9 Anemia, unspecified; Q61.3 Polycystic kidney, unspecified; F43.10 Post-traumatic stress disorder, unspecified; E78.5 Hyperlipidemia, unspecified; K21.9 Gastro-esophageal reflux disease without esophagitis; Z90.710 Acquired absence of both cervix and uterus; Z98.84 Bariatric surgery status; Z83.3 Family history of diabetes mellitus; Z82.49 Family history of ischemic heart disease and other diseases of the circulatory system; Z82.3 Family history of stroke

== ENCOUNTER 2016-11-30 14:22 | Emergency (ER) | payer OTHER ==
[~2016-11-30 14:22] MED LIST changes: +ABL10 PO; -ALBU1AER9 INH; -CYAN3INJ IM; +CYAN6000 SL; -FLUT110A INH; +LACT1GRA PO; -MTR600X PO; -OXYC-57 PO; +POLY150C4 PO; -TRIA0.1C20 TOP
--- NOTE | 2016-11-30 15:22 | EMERGENCY ROOM VISIT NOTE ---
History Report prepared by Jacqueline: Grant Leigh Under the Supervision of: Dr. Atilio Santiago D.O. First contact with patient: 15:02 Chief Complaint: HYPERTENSION Stated Complaint: ELEVATED BLOOD PRESSURE,HEADACHE,DIZZY History of Present Illness The patient is a 41 year old female who presents to the Emergency Room with complaints of hypertension and dizziness that occurred shortly prior to arrival. The patient states that she was receiving an Emend Injection from her primary care physician today. While receiving the injection her blood pressure began to spike and she started to experience a headache and dizziness. She has been receiving these injections for roughly a year and has not had any episodes like this in the past. The patient is on Lisinopril and Nadolol for chronic hypertension. She denies any recent medication changes. 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 A total of 10 systems reviewed and were otherwise negative. 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 (15) PTSD (16) Tubal ligation evaluation Surgical Problems: (1) excessive skin removal (2) gastric revision procedure with gastric bypass (3) H/O colonoscopy (4) H/O esophagogastroduodenoscopy (5) H/O exploratory laparotomy (6) H/O gastric bypass (7) H/O ventral hernia repair (8) H/O wisdom tooth extraction (9) lysis of adhesions (10) S/P cholecystectomy (11) S/P endometrial ablation (12) S/P laparoscopic hysterectomy (13) S/P panniculectomy (14) S/P partial gastrectomy (15) Status post unilateral salpingo-oophorectomy (16) wedge biopsy liver Social History Problems: (1) Gastroesophageal reflux disease (2) Hyperlipidemia Family History Cancer MOTHER (lung) Diabetes mellitus FATHER FH: gallbladder disease FH: lung disease FHx: heart disease FATHER Hypertension MOTHER Stroke FATHER Social History Smoking Status: Never Smoker Alcohol Use: none Drug Use: none Marital Status: , in relationship Housing Status: lives with significant other Occupation Status: employed Current/Historical Medications Scheduled Aripiprazole (Abilify), 15 MG PO HS Ascorbic Acid (Ascorbic Acid), 500 MG PO QAM Cholecalciferol (Vitamin D), 2,000 INTER.UNIT PO QAM Cyanocobalamin (Vitamin B-12), 6,000 MCG SL QAM Cyanocobalamin (Cyanocobalamin), 1 DOSE IM Q3 MONTHS Fluticasone Propionate (Flovent Hfa), 2 PUFFS INH BID Fosaprepitant Dimeglumine (Emend), 1 DOSE IV WK Gabapentin (Neurontin), 300 MG PO BID Lactobacillus Acidophilus (Lactinex Granules), 1 PKT PO TIDM Lisinopril (Zestril), 5 MG PO HS Mirtazapine (Remeron), 15 MG PO HS Nadolol (Corgard), 40 MG PO QAM Omeprazole (Prilosec), 20 MG PO QAM Pediatric Multiple Vitamin W/ (Flintstones Chewable), 1 TAB PO BID Polysaccharide Iron Complex (Ferrex 150), 150 MG PO TID Potassium Chloride (Potassium Chloride ER), 20 MEQ PO QAM Topiramate (Topamax), 100 MG PO BID Zolpidem Tartrate (Ambien), 10 MG PO HS Scheduled PRN Acetaminophen (Tylenol), 1,000 MG PO Q6H PRN for Pain Albuterol Sulfate (Proair Respiclick), 2 PUFFS INH Q4H PRN for SOB/Wheezing Docusate Sodium (Colace), 200 MG PO BID PRN for Constipation Dronabinol (Marinol), 2.5 MG PO BID PRN for Pain Lorazepam (Ativan), 1 MG PO BID PRN for Anxiety Ondansetron (Ondansetron Odt), 8 MG PO Q8 PRN for Nausea Polyethylene Glycol 3350 (Miralax), 17 GM PO TID PRN for Constipation Rizatriptan Benzoate (Maxalt), 10 MG PO UD PRN for Headache Sodium Phosphate/Biphosphate (Fleet Enema), 1 EA [place] DAILY PRN for Constipation Triamcinolone Acet (Aristocort 0.1%), 1 APPLN [place] DAILY PRN for Itching Valacyclovir (Valtrex), 500 MG PO BID PRN for Outbreaks Allergies Coded Allergies: Morphine (Verified Allergy, Severe, TONGUE SWELLING, difficulty breathing/ wheezing, 11/30/16) tolerates hydromorphone Colestipol (Verified Allergy, Intermediate, red rash (no itching), 11/30/16 ) Cat Dander (Verified Allergy, Unknown, ITCHY WATERY EYES , 11/30/16) NUTS (Verified Allergy, Unknown, skin test showed nut allergy, 11/30/16) per pt, eats peanuts without issue Scopolamine (Verified Adverse Reaction, Severe, Seizure, 11/30/16) SEIZURES ONLY WHEN COMBINED W/ WELLBUTRIN. Promethazine (Verified Adverse Reaction, Intermediate, "CAN'T SIT STILL", 11/30/16) Bupropion (Verified Adverse Reaction, Unknown, Seizure, 11/30/16) SEIZURES WHEN WELLBUTRIN IS COMBINED W/ SCOPALAMINE. Physical Exam Vital Signs Date Time Temp Pulse Resp B/P Pulse Ox O2 Delivery O2 Flow Rate FiO2 11/30/16 14:27 36.7 72 20 172/99 98 Room Air Physical Exam GENERAL: Patient is awake, alert, and in no acute distress. Patient is resting comfortably and showing no signs of anxiety EYES: The conjunctivae are clear. The pupils are round and reactive. EARS, NOSE, MOUTH AND THROAT: The nose is without any evidence of any deformity. Mucous membranes are moist tongue is midline NECK: The neck is nontender and supple. RESPIRATORY: Normal respiratory effort is noted there is no evidence of wheezing rhonchi or rales CARDIOVASCULAR: Regular rate and rhythm noted there no murmurs rubs or gallops normal S1 normal S2 GASTROINTESTINAL: The abdomen is soft. Bowel sounds are present in all quadrants. Abdomen is nontender MUSCULOSKELETAL/EXTREMITIES: There is no evidence of gross deformity full range of motion is noted in the hips and shoulders SKIN: There is no obvious evidence of any rash. There are no petechiae, pallor or cyanosis noted. NEUROLOGIC: Patient is awake alert and oriented x3 strength is symmetric patellar reflexes are 2+ bilaterally Medical Decision & Procedures ED Course 1515: The patient was evaluated in room C12. A complete history and physical examination were performed. 1542: Upon reevaluation, the patient is resting comfortably in bed. I discussed the results and treatment plan with her. She verbalized agreement of the treatment plan. The patient was discharged home. Medical Decision The patient's history was concerning for hypertension. Differential diagnosis: Etiologies such as benign hypertension, hypertensive emergency, cardiovascular pathology, pheochromocytoma, electrolyte abnormality, renal disease, endorgan damage, as well as others were entertained. The patient is a 41-year-old female who presented to the emergency department from the [facility] after her blood pressure was noted to be elevated. The patient doesn't a history of chronic hypertension. She has no meningismus or focal neurologic deficits. A repeat of her blood pressure did show improvement. I discussed her blood pressure with her. She still may require some intervention with her primary care physician such as an addition of a new blood pressure medication or possibly a change of her previous dosage at this time I do not feel that she has any hypertensive crisis requiring intervention on her blood pressure at this time. She was encouraged to rest and avoid any strenuous activity. She was also encouraged to follow-up with her primary care physician tomorrow for blood pressure check. She was also encouraged to continue all medications as prescribed and return to the emergency department immediately if symptoms change worsen or the need arises. Impression Primary Impression: Hypertension Scribe Attestation The scribe's documentation has been prepared under my direction and personally reviewed by me in its entirety. I confirm that the note above accurately reflects all work, treatment, procedures, and medical decision making performed by me. Departure Information Dispostion Home / Self-Care Referrals José Miguel Bobo M.D. (PCP) Patient Instructions My [facility]
[2016-11-30 15:45] VITALS: BP 175/89; PULSE 72; TEMP 36.7; O2SAT 98
[2017-01-17] MEDS ORDERED: [UNRECOGNIZED DRUG - CODE] IV (09:15)
[2017-01-17] MEDS ORDERED: NADO20TA15 PO (13:14)
[2017-01-17] MEDS ORDERED: DRON2.5C PO (14:23)
[2017-01-17] MEDS ORDERED: POLY335019 PO (20:16)
[2017-02-22] MEDS ORDERED: MAXALT PO (12:05)
[2017-03-19] MEDS ORDERED: POLY150C4 PO (16:36)
[2017-04-19] MEDS ORDERED: SERT50TA PO (12:08)
[2017-05-24] MEDS ORDERED: CLON0.1T12 PO (12:13)
[2017-05-24] MEDS ORDERED: LISI-461 PO (12:13)
[2017-05-24] MEDS ORDERED: TOPI100T20 PO (13:24)
[2017-05-24] MEDS ORDERED: ATV/1 PO (14:23)
[2017-05-24] MEDS ORDERED: GABA-113 PO (14:23)
[2017-05-24] MEDS ORDERED: ZFRODT/8 PO (15:40)
[2017-05-24] MEDS ORDERED: RIZA10TA18 PO (16:36)
[2017-05-24] MEDS ORDERED: POTA20TA13 PO (16:36)
[2017-05-24] MEDS ORDERED: PEDICHW53 PO (16:36)
[2017-05-24] MEDS ORDERED: [UNRECOGNIZED DRUG - CODE] IV (16:36)
[2017-05-24] MEDS ORDERED: ALBUAER INH (16:36)
[2017-05-24] MEDS ORDERED: CYNI1000 IM (16:38)
[2017-05-24] MEDS ORDERED: [UNRECOGNIZED DRUG - CODE] IV (16:38)
[2017-05-24] MEDS ORDERED: ABL/15 PO (18:27)
[2017-05-24] MEDS ORDERED: SERT1TAB68 PO (18:27)
[2017-05-24] MEDS ORDERED: VALA500T60 PO (20:00)
[2017-05-24] MEDS ORDERED: FLVHFA110 INH (21:00)
[2017-05-24] MEDS ORDERED: TRMCR130WC TOP (21:00)
[2017-05-24] MEDS ORDERED: ZOLP10TA6 PO (21:08)
[2017-05-24] MEDS ORDERED: ACET-1256 PO (21:35)
[2017-05-24] MEDS ORDERED: MIRT15TA3 PO (22:54)
== END 2016-11-30 15:45 | disposition home or self-care (01) ==
LOC: C.EDB 14:23 → C.EDC 15:45
DX: I10 Essential (primary) hypertension (principal); F40.00 Agoraphobia, unspecified; J45.909 Unspecified asthma, uncomplicated; F31.9 Bipolar disorder, unspecified; D64.9 Anemia, unspecified; G89.29 Other chronic pain; R10.2 Pelvic and perineal pain; K56.7 Ileus, unspecified; Q61.2 Polycystic kidney, adult type; K91.1 Postgastric surgery syndromes; F43.10 Post-traumatic stress disorder, unspecified; K21.9 Gastro-esophageal reflux disease without esophagitis; E78.5 Hyperlipidemia, unspecified; Z98.51 Tubal ligation status; Z98.84 Bariatric surgery status; Z90.710 Acquired absence of both cervix and uterus; Z83.3 Family history of diabetes mellitus; Z82.49 Family history of ischemic heart disease and other diseases of the circulatory system; Z82.3 Family history of stroke; R11.2 Nausea with vomiting, unspecified

== ENCOUNTER 2017-01-17 20:18 | Emergency (ER) | payer OTHER ==
[~2017-01-17] VITALS: Ht 157.5 cm; Wt 97.6 kg
[~2017-01-17 20:18] MED LIST changes: -ASCO250C17 PO; -CHOL200010 PO; -CYAN6000 SL; -DOCU-94 PO; +DRON2.5C PO; -LACT1GRA PO; -LISI-729 PO; -MIRT15TA PO; +NADO20TA15 PO; -POLY150C4 PO; +POLY335019 PO; -POTA-65 PO; -PRLSR20 PO; -RIZA10TA18 PO; -SODIENE PR; +[UNRECOGNIZED DRUG - CODE] IV
[2017-01-17 20:20] VITALS: TEMP 36.7; Ht 157.5 cm; Wt 97.6 kg
[2017-01-17] MEDS ORDERED: ALBU18002 INH (21:00)
[2017-01-17] MEDS ORDERED: CYNI1000 IM (21:00)
[2017-01-17] MEDS ORDERED: ONDANSETRON INJ 2 MG/ML 2 ML VIAL IV STA (21:08)
[2017-01-17] MEDS: SODIUM CHLORIDE 0.9% 1000ML 1,000 ML IV STA ×2 (21:08→21:47)
[2017-01-17] MEDS ORDERED: ARIP1TAB16 PO (21:08)
[2017-01-17 21:47] LABS: BASO % 0.2 %; BASO ABS # 0.01 K/uL (0-0.2); COMPLETE YES; IG% 0.2 %; LYMPH ABS # 2.01 K/uL (1.2-3.4); MEAN CELL VOLUME 76.9 fL (80-100); MEAN CORPUSCULAR HEMOGLOBIN 23.3 pg (25-34); MEAN CORPUSCULAR HGB CONC 30.3 g/dl (32-36); MEAN PLATELET VOLUME 9.6 fL (7.4-10.4); MONO % 9.7 %; NEUT % 54.9 %; PLATELET COUNT 269 K/uL (130-400); WHITE BLOOD COUNT 6.09 K/uL (4.8-10.8)
[2017-01-17 22:01] LABS: URINE APPEARANCE CLEAR (CLEAR); URINE BILIRUBIN NEG (NEG); URINE COLOR YELLOW; URINE NITRITE NEG (NEG); URINE SPECIFIC GRAVITY 1.016 (1.000-1.030); UROBILINOGEN NEG (NEG); ZZUR CULT IF INDIC CLEAN CATCH NO
[2017-01-17 22:02] LABS: BUN/CREATININE RATIO 22.4 (10-20); CALCIUM 8.4 mg/dl (8.5-10.1); CREATININE 0.74 mg/dl (0.60-1.20); POTASSIUM 4.1 mmol/L (3.5-5.1)
[2017-01-17 22:02] LABS: MANUAL MICROSCOPIC REQUIRED? NO; REVIEW REQ? NO
--- NOTE | 2017-01-17 22:36 | EMERGENCY ROOM VISIT NOTE ---
History Report prepared by Jacqueline: Bran Casas Under the Supervision of: Dr. Isaac Navas D.O. First contact with patient: 21:06 Chief Complaint: ABDOMINAL PAIN Stated Complaint: ABDOMINAL PAIN, NAUSEA, CONSTIPATION Nursing Triage Summary: abdominal pain and constipation X 1 day , last BM 2 days ago , + NV. pt reports hx of bowel obstructions History of Present Illness The patient is a 41 year old female who presents to the Emergency Room with complaints of lower quadrant abdominal pain that began yesterday. She rates her pain a 5/10 in severity. She is experiencing nausea, vomiting, and constipation as well. Her last bowel movement was two days ago. Her vomiting began today. She has a past medical history of bowel obstructions. She denies any fevers or any other abnormal symptoms. She has a history of a gastric bypass surgery, hernia repair, hysterectomy, and scar tissue removal. Source of History: patient Onset: yesterday Position: abdomen (LLQ) Symptom Intensity: 5/10 Quality: ache Timing: constant Associated Symptoms: + nausea, + vomiting, No fevers Note: She is also experiencing constipation. Review of Systems See HPI for pertinent positives & negatives. A total of 10 systems reviewed and were otherwise negative. 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 (15) PTSD (16) Tubal ligation evaluation Surgical Problems: (1) excessive skin removal (2) gastric revision procedure with gastric bypass (3) H/O colonoscopy (4) H/O esophagogastroduodenoscopy (5) H/O exploratory laparotomy (6) H/O gastric bypass (7) H/O ventral hernia repair (8) H/O wisdom tooth extraction (9) lysis of adhesions (10) S/P cholecystectomy (11) S/P endometrial ablation (12) S/P laparoscopic hysterectomy (13) S/P panniculectomy (14) S/P partial gastrectomy (15) Status post unilateral salpingo-oophorectomy (16) wedge biopsy liver Social History Problems: (1) Gastroesophageal reflux disease (2) Hyperlipidemia Family History Cancer MOTHER (lung) Diabetes mellitus FATHER FH: gallbladder disease FH: lung disease FHx: heart disease FATHER Hypertension MOTHER Stroke FATHER Social History Smoking Status: Never Smoker Alcohol Use: none Drug Use: none Marital Status: , in relationship Housing Status: lives with significant other Occupation Status: employed Current/Historical Medications Scheduled Aripiprazole (Aripiprazole), 15 MG PO HS Cyanocobalamin (Cyanocobalamin), 1 DOSE IM Q3 MONTHS Fluticasone Propionate (Flovent Hfa), 2 PUFFS INH BID Fosaprepitant Dimeglumine (Emend), 1 DOSE IV Q10D Gabapentin (Neurontin), 300 MG PO BID Mirtazapine (Remeron), 7.5 MG PO HS Nadolol (Corgard), 40 MG PO HS Pediatric Multiple Vitamin W/ (Flintstones Chewable), 1 TAB PO BID Topiramate (Topamax), 100 MG PO BID Zolpidem Tartrate (Zolpidem Tartrate), 10 MG PO HS Scheduled PRN Acetaminophen (Tylenol), 1,000 MG PO Q6H PRN for Pain Albuterol Sulfate (Proair Respiclick), 2 PUFFS INH Q4H PRN for SOB/Wheezing Dronabinol (Marinol), 2.5 MG PO BID PRN for Pain Lorazepam (Ativan), 1 MG PO BID PRN for Anxiety Ondansetron (Ondansetron Odt), 8 MG PO Q8 PRN for Nausea Polyethylene Glycol 3350 (Miralax), 17 GM PO TID PRN for Constipation Triamcinolone Acet (Aristocort 0.1%), 1 APPLN TOP DAILY PRN for Itching Valacyclovir (Valtrex), 500 MG PO BID PRN for Outbreaks Allergies Coded Allergies: Morphine (Verified Allergy, Severe, TONGUE SWELLING, difficulty breathing/ wheezing, 01/12/17) tolerates hydromorphone Colestipol (Verified Allergy, Intermediate, red rash (no itching), 01/12/17 ) Cat Dander (Verified Allergy, Unknown, ITCHY WATERY EYES , 01/12/17) NUTS (Verified Allergy, Unknown, skin test showed nut allergy, 01/12/17) per pt, eats peanuts without issue Scopolamine (Verified Adverse Reaction, Severe, Seizure, 01/12/17) SEIZURES ONLY WHEN COMBINED W/ WELLBUTRIN. Promethazine (Verified Adverse Reaction, Intermediate, "CAN'T SIT STILL", 01/12/17) Bupropion (Verified Adverse Reaction, Unknown, Seizure, 01/12/17) SEIZURES WHEN WELLBUTRIN IS COMBINED W/ SCOPALAMINE. Physical Exam Vital Signs Date Time Temp Pulse Resp B/P (MAP) Pulse Ox O2 Delivery O2 Flow Rate FiO2 01/17/17 23:06 68 18 123/79 97 Room Air 01/17/17 22:38 64 20 123/79 97 Room Air 01/17/17 20:20 36.7 58 18 141/86 98 Room Air Physical Exam CONSTITUTIONAL/VITAL SIGNS: Reviewed / noted above. GENERAL: Non-toxic in appearance. INTEGUMENTARY: Warm, dry, and [place]. HEAD: Normocephalic. EYES: without scleral icterus or trauma. ENT/OROPHARYNX: clear and moist. LYMPHADENOPATHY/NECK: Is supple without lymphadenopathy or meningismus. RESPIRATORY: Lungs clear and equal. CARDIOVASCULAR: Regular rate and rhythm. GI/ABDOMEN: Soft and nontender. No organomegaly or pulsatile mass. No rebound or guarding. Normal bowel sounds. EXTREMITIES: Warm and well perfused. BACK: No CVA tenderness. NEUROLOGICAL: Intact without focal deficits. PSYCHIATRIC: normal affect. MUSCULOSKELETAL: Normally developed with good muscle tone. Medical Decision & Procedures ER Provider Diagnostic Interpretation: X ray results and stated below per my interpretation: X-RAY ABDOMEN: No free air, no obstructive pattern CHEST X-RAY: Without pneumonia or pneumothorax. Per me Laboratory Results 01/17/17 21:30 Red Blood Count 3.90, Mean Corpuscular Volume 76.9, Mean Corpuscular Hemoglobin 23.3, Mean Corpuscular Hemoglobin Concent 30.3, Mean Platelet Volume 9.6, Neutrophils (%) (Auto) 54.9, Lymphocytes (%) (Auto) 33.0, Monocytes (%) (Auto) 9.7, Eosinophils (%) (Auto) 2.0, Basophils (%) (Auto) 0.2, Neutrophils # (Auto) 3.35, Lymphocytes # (Auto) 2.01, Monocytes # (Auto) 0.59, Eosinophils # (Auto) 0.12, Basophils # (Auto) 0.01 01/17/17 21:30 Test 01/17/17 21:15 01/17/17 21:30 Urine Color YELLOW Urine Appearance CLEAR (CLEAR) Urine pH 5.0 (4.5-7.5) Urine Specific [place] 1.016 (1.000-1.030) Urine Protein NEG (NEG) Urine Glucose (UA) NEG (NEG) Urine Ketones NEG (NEG) Urine Occult Blood NEG (NEG) Urine Nitrite NEG (NEG) Urine Bilirubin NEG (NEG) Urine Urobilinogen NEG (NEG) Urine Leukocyte Esterase NEG (NEG) Urine WBC (Auto) 1-5 /hpf (0-5) Urine RBC (Auto) 0-4 /hpf (0-4) Urine Hyaline Casts (Auto) 0 /lpf (0-5) Urine Epithelial Cells (Auto) 10-20 /lpf (0-5) Urine Bacteria (Auto) NEG (NEG) Urine Test NEG (NEG) White Blood Count 6.09 K/uL (4.8-10.8) Red Blood Count 3.90 M/uL (4.2-5.4) Hemoglobin 9.1 g/dL (12.0-16.0) Hematocrit 30.0 % (37-47) Mean Corpuscular Volume 76.9 fL (80-100) Mean Corpuscular Hemoglobin 23.3 pg (25-34) Mean Corpuscular Hemoglobin Concent 30.3 g/dl (32-36) Platelet Count 269 K/uL (130-400) Mean Platelet Volume 9.6 fL (7.4-10.4) Neutrophils (%) (Auto) 54.9 % Lymphocytes (%) (Auto) 33.0 % Monocytes (%) (Auto) 9.7 % Eosinophils (%) (Auto) 2.0 % Basophils (%) (Auto) 0.2 % Neutrophils # (Auto) 3.35 K/uL (1.4-6.5) Lymphocytes # (Auto) 2.01 K/uL (1.2-3.4) Monocytes # (Auto) 0.59 K/uL (0.11-0.59) Eosinophils # (Auto) 0.12 K/uL (0-0.5) Basophils # (Auto) 0.01 K/uL (0-0.2) RDW Standard Deviation 49.5 fL (36.4-46.3) RDW Coefficient of Variation 17.4 % (11.5-14.5) Immature Granulocyte % (Auto) 0.2 % Immature Granulocyte # (Auto) 0.01 K/uL (0.00-0.02) Anion Gap 7.0 mmol/L (3-11) Est Creatinine Clear Calc Drug Dose 108.0 ml/min Estimated GFR () 115.8 Estimated GFR (Non- 99.9 BUN/Creatinine Ratio 22.4 (10-20) Calcium Level 8.4 mg/dl (8.5-10.1) Total Bilirubin 0.2 mg/dl (0.2-1) Direct Bilirubin 0.1 mg/dl (0-0.2) Aspartate Amino Transf (AST/SGOT) 16 U/L (15-37) Alanine Aminotransferase (ALT/SGPT) 22 U/L (12-78) Alkaline Phosphatase 106 U/L (45-117) Total Protein 6.7 gm/dl (6.4-8.2) Albumin 3.1 gm/dl (3.4-5.0) Lipase 271 U/L (73-393) Laboratory results as stated above per my review. Medications Administered Medications (Trade) Dose Ordered Sig/Rigo Route Start Time Stop Time Status Last Admin Dose Admin Sodium Chloride 1,000 ml @ 999 mls/hr Q1H1M STAT IV 01/17/17 21:08 01/17/17 22:08 DC 01/17/17 21:47 999 MLS/HR Ondansetron HCl (Zofran Inj) 4 mg NOW STAT IV 01/17/17 21:08 01/17/17 21:11 DC 01/17/17 21:43 4 MG Ketorolac Tromethamine (Toradol Inj) 30 mg NOW STAT IV 01/17/17 23:37 01/17/17 23:39 DC 01/17/17 23:46 30 MG ED Course 2105: Previous medical records were reviewed. The patient was evaluated in room C7. A complete history and physical examination was performed. 2107: Ordered Zofran Inj 4 mg IV, Sodium Chloride 1000 ml @ 999 mls/hr IV 7: Ordered Toradol Inj 30 mg IV 0008: On reevaluation, the patient is resting. I discussed the results and findings with the patient. She verbalized agreement of the treatment plan. She was discharged home. Medical Decision Differential considered: pancreatitis, hepatitis, or acute cholecystitis, AAA, UTI, pyelonephritis, kidney stones, appendicitis, diverticulitis, shingles, bowel obstruction mesenteric ischemia, intussusception, hernia, ovarian torsion , ruptured ovarian cyst,ectopic , . Medication Reconciliation: I attest that I have personally reviewed the patient' s current medication list. Patient was found to have a slightly elevated blood pressure due to circumstances. I do not believe that the patient requires hypertension monitoring. This is a 41-year-old female who presents to the ED with a chief complaint of abdominal pain. The patient reports nausea and vomiting as well as constipation. She states that her nausea vomiting started this morning and constipation for 2 days. The patient's vital signs are stable. Physical exam did not reveal any significant tenderness. She does have abdominal scarring from previous surgeries. Hemoglobin is 9.1 (chronic). Complete metabolic panel was normal. Urine does not show infection or test was negative. Acute abdominal series did not show any obvious obstructive pattern or free air. The patient was told the results. She was treated with Toradol IV , Zofran IV and IV fluids. She is felt to be stable for discharge and outpatient follow-up. Impression Primary Impression: Generalized abdominal pain Scribe Attestation The scribe's documentation has been prepared under my direction and personally reviewed by me in its entirety. I confirm that the note above accurately reflects all work, treatment, procedures, and medical decision making performed by me. Departure Information Dispostion Home / Self-Care Referrals Marivel Harrell MD (PCP) Forms Call Back Authorization, HOME CARE DOCUMENTATION FORM, IMPORTANT VISIT INFORMATION Patient Instructions Abdominal Pain, My [facility] Additional Instructions Follow-up with your doctor for further care and evaluation in 1-2 days. Return to the emergency department for worsening or new symptoms or any concerns. You have been examined and treated today on an emergency basis only. This is not a substitute for, or an effort to provide, complete comprehensive medical care. It is impossible to recognize and treat all injuries or illnesses in a single emergency department visit. It is therefore important that you follow up closely with your doctor. Call as soon as possible for an appointment.
[2017-01-17] MEDS ORDERED: PEDICHW50 PO (23:03)
[2017-01-17 23:06] VITALS: BP 123/79; PULSE 68; O2SAT 97
[2017-01-17] MEDS ORDERED: KETOROLAC TROMETHAMINE 30 MG/ML VIAL IV STA (23:37)
--- NOTE | 2017-01-18 06:57 | DIAGNOSTIC IMAGING REPORT ---
PA CHEST RADIOGRAPH AND UPRIGHT AND SUPINE AP RADIOGRAPHS OF THE ABDOMEN CLINICAL HISTORY: Abdominal pain. COMPARISON STUDY: Abdominal series November 04, [address] December 27, 2016. FINDINGS: A left subclavian [id number] remains in place. There is no pneumothorax or pleural effusion. There is no evidence of pulmonary edema. Cardiac size is normal. Mediastinal contours are normal. There are calcified subcarinal and left hilar lymph nodes. Calcified left lower lobe granuloma is noted. There is no free air. Cholecystectomy clips are noted. There is no evidence for a bowel obstruction. There is a moderate amount of stool within the colon. IMPRESSION: 1. No free air or evidence of bowel obstruction. 2. Moderate amount of stool within the colon. 3. No acute cardiopulmonary findings. Electronically signed by: Jose L Strong M.D. 01/18/2017 6:56 AM Dictated Date/Time: 01/18/2017 6:54 AM
[2017-02-22] MEDS ORDERED: MAXALT PO (12:05)
[2017-03-19] MEDS ORDERED: POLY150C4 PO (16:36)
[2017-04-19] MEDS ORDERED: SERT50TA PO (12:08)
[2017-05-24] MEDS ORDERED: CLON0.1T12 PO (12:13)
[2017-05-24] MEDS ORDERED: LISI-461 PO (12:13)
[2017-05-24] MEDS ORDERED: TOPI100T20 PO (13:24)
[2017-05-24] MEDS ORDERED: ATV/1 PO (14:23)
[2017-05-24] MEDS ORDERED: GABA-113 PO (14:23)
[2017-05-24] MEDS ORDERED: ZFRODT/8 PO (15:40)
[2017-05-24] MEDS ORDERED: RIZA10TA18 PO (16:36)
[2017-05-24] MEDS ORDERED: POTA20TA13 PO (16:36)
[2017-05-24] MEDS ORDERED: [UNRECOGNIZED DRUG - CODE] IV (16:36)
[2017-05-24] MEDS ORDERED: ALBUAER INH (16:36)
[2017-05-24] MEDS ORDERED: PEDICHW53 PO (16:36)
[2017-05-24] MEDS ORDERED: [UNRECOGNIZED DRUG - CODE] IV (16:38)
[2017-05-24] MEDS ORDERED: CYNI1000 IM (16:38)
[2017-05-24] MEDS ORDERED: SERT1TAB68 PO (18:27)
[2017-05-24] MEDS ORDERED: ABL/15 PO (18:27)
[2017-05-24] MEDS ORDERED: VALA500T60 PO (20:00)
[2017-05-24] MEDS ORDERED: FLVHFA110 INH (21:00)
[2017-05-24] MEDS ORDERED: TRMCR130WC TOP (21:00)
[2017-05-24] MEDS ORDERED: ZOLP10TA6 PO (21:08)
[2017-05-24] MEDS ORDERED: ACET-1256 PO (21:35)
[2017-05-24] MEDS ORDERED: MIRT15TA3 PO (22:54)
== END 2017-01-18 00:51 | disposition home or self-care (01) ==
LOC: C.EDB 20:19 → C.EDC 01-18 00:51
DX: R10.84 Generalized abdominal pain (principal); R11.2 Nausea with vomiting, unspecified; K59.00 Constipation, unspecified; J45.909 Unspecified asthma, uncomplicated; Q61.2 Polycystic kidney, adult type; F31.9 Bipolar disorder, unspecified; Z98.84 Bariatric surgery status; Z90.710 Acquired absence of both cervix and uterus; Z98.890 Other specified postprocedural states; Z98.818 Other dental procedure status; Z90.49 Acquired absence of other specified parts of digestive tract; Z90.3 Acquired absence of stomach [part of]; Z90.721 Acquired absence of ovaries, unilateral; Z80.1 Family history of malignant neoplasm of trachea, bronchus and lung; Z83.3 Family history of diabetes mellitus; Z82.49 Family history of ischemic heart disease and other diseases of the circulatory system; Z82.3 Family history of stroke; Z79.899 Other long term (current) drug therapy

== ENCOUNTER 2017-01-28 19:59 | Emergency (ER) | payer OTHER ==
[~2017-01-28] VITALS: Ht 157.5 cm; Wt 100.2 kg
[~2017-01-28 19:59] MED LIST changes: -ABL10 PO; +ALBU18002 INH; +ARIP1TAB16 PO; +CYNI1000 IM; +PEDICHW50 PO; -ZOLP10TA PO
[2017-01-28 20:02] VITALS: BP 156/85; PULSE 81; TEMP 37.1; O2SAT 98; Ht 157.5 cm; Wt 100.2 kg
--- NOTE | 2017-01-28 20:13 | EMERGENCY ROOM VISIT NOTE ---
ED Visit Note First contact with patient: 20:11 CHIEF COMPLAINT: Allergic reaction to insect bite HISTORY OF PRESENT ILLNESS: This 41-year-old female patient presents to the emergency department after she developed sudden onset of mildly painful and itching rash on her left lower leg. Patient states she noticed a tick on her leg around 4 PM today which she removed without difficulty. Patient states she then took a hot shower, and after the shower noticed the rash had developed. The patient does not have swelling of the face and lips and does not have a sensation of swelling in the throat. The patient has not had shortness of breath. She denies any numbness or tingling adjacent to the rash. The patient has tried no medications or therapies for the rash. There has been no change in the patient's soaps, detergents, foods, medications, or other environmental factors. She denies fevers/chills, shortness of breath, wheezing, difficulty swallowing, chest pain, nausea or vomiting, abdominal pain. REVIEW OF SYSTEMS: A review of systems was performed with positives and pertinent negatives listed in the history of present illness. All other systems were reviewed and are negative. ALLERGIES: See chart MEDICATIONS: See chart PMH: See chart SOCIAL HISTORY: See chart PHYSICAL EXAM:VITALS: Vitals are noted on the nurse's note and reviewed by myself. Vital signs stable. GENERAL: Pleasant and cooperative, in no acute distress, nondiaphoretic, well- developed well-nourished. THROAT: No pharyngeal edema or injection, no exudates or tonsillar hypertrophy. Airway patent. LUNGS: Clear to auscultation and breath sounds equal, no wheezes, rales, or rhonchi. EYES: PERRLA, EOMI, no discharge or injection. NEUROLOGICAL: Alert and oriented to person, place, and time. Normal sensation to light and sharp touch. HEART: Regular rate without murmurs, ectopy, gallops, or rubs. SKIN: There is a small area of erythematous, macular rash on the left medial ankle, slightly tender to palpation, blanching, not warm to touch, no drainage noted. Appears consistent with an allergic reaction. There are no visible remaining parts of the insect left in the skin. The lips are not swollen. There is no facial or periorbital swelling. EMERGENCY DEPARTMENT COURSE: I examined the patient. No concerns for systemic allergic reaction at this time, all symptoms are very localized to the left ankle. The patient was given 50 mg oral Benadryl and an ice pack. [place] much improved and was discharged in stable condition. Patient has scheduled PCP follow-up appointment in 3 days, I encouraged her to keep this. Medication Reconciliation: I attest that I have personally reviewed the patient' s current medication list. Blood pressure screening: The patient was found to have an elevated blood pressure and was referred to their primary doctor for recheck and further treatment. Patient discussed with Dr. Yap, who agrees with my assessment and plan. Problem List Medical Problems: (1) a-port placement Status: Chronic (2) Agoraphobia Status: Chronic (3) Asthma Status: Chronic (4) Bipolar I disorder Status: Chronic (5) Chronic anemia Status: Chronic (6) H/O drug abuse Permanent Comment: heroin, alcohol Status: Chronic (7) History of esophageal dilatation Permanent Comment: 2009 Status: Chronic (8) Polycystic kidney disease, adult type Status: Chronic (9) Postgastric surgery syndrome Status: Chronic (10) PTSD Status: Chronic (11) Tubal ligation evaluation Status: Chronic Surgical Problems: (1) excessive skin removal Status: Chronic (2) gastric revision procedure with gastric bypass Permanent Comment: 2008 Status: Chronic (3) H/O colonoscopy Status: Chronic (4) H/O esophagogastroduodenoscopy Status: Chronic (5) H/O exploratory laparotomy Permanent Comment: 2009, 2010, 2012 Status: Chronic (6) H/O gastric bypass Status: Chronic (7) H/O ventral hernia repair Status: Chronic (8) H/O wisdom tooth extraction Status: Chronic (9) lysis of adhesions Status: Chronic (10) S/P cholecystectomy Status: Chronic (11) S/P endometrial ablation Status: Chronic (12) S/P panniculectomy Permanent Comment: 2010 Status: Chronic (13) S/P partial gastrectomy Status: Chronic (14) wedge biopsy liver Permanent Comment: 2012 Status: Chronic Social History Problems: (1) Gastroesophageal reflux disease Status: Chronic (2) Hyperlipidemia Status: Chronic Current/Historical Medications Scheduled Aripiprazole (Aripiprazole), 15 MG PO HS Cyanocobalamin (Cyanocobalamin), 1 DOSE IM Q3 MONTHS Fluticasone Propionate (Flovent Hfa), 2 PUFFS INH BID Fosaprepitant Dimeglumine (Emend), 1 DOSE IV Q10D Gabapentin (Neurontin), 300 MG PO BID Mirtazapine (Remeron), 7.5 MG PO HS Nadolol (Corgard), 40 MG PO HS Pediatric Multiple Vitamin W/ (Flintstones Chewable), 1 TAB PO BID Topiramate (Topamax), 100 MG PO BID Zolpidem Tartrate (Zolpidem Tartrate), 10 MG PO HS Scheduled PRN Acetaminophen (Tylenol), 1,000 MG PO Q6H PRN for Pain Albuterol Sulfate (Proair Respiclick), 2 PUFFS INH Q4H PRN for SOB/Wheezing Dronabinol (Marinol), 2.5 MG PO BID PRN for Pain Lorazepam (Ativan), 1 MG PO BID PRN for Anxiety Ondansetron (Ondansetron Odt), 8 MG PO Q8 PRN for Nausea Polyethylene Glycol 3350 (Miralax), 17 GM PO TID PRN for Constipation Triamcinolone Acet (Aristocort 0.1%), 1 APPLN TOP DAILY PRN for Itching Valacyclovir (Valtrex), 500 MG PO BID PRN for Outbreaks Allergies Coded Allergies: Morphine (Verified Allergy, Severe, TONGUE SWELLING, difficulty breathing/ wheezing, 01/12/17) tolerates hydromorphone Colestipol (Verified Allergy, Intermediate, red rash (no itching), 01/12/17 ) Cat Dander (Verified Allergy, Unknown, ITCHY WATERY EYES , 01/12/17) NUTS (Verified Allergy, Unknown, skin test showed nut allergy, 01/12/17) per pt, eats peanuts without issue Scopolamine (Verified Adverse Reaction, Severe, Seizure, 01/12/17) SEIZURES ONLY WHEN COMBINED W/ WELLBUTRIN. Promethazine (Verified Adverse Reaction, Intermediate, "CAN'T SIT STILL", 01/12/17) Bupropion (Verified Adverse Reaction, Unknown, Seizure, 01/12/17) SEIZURES WHEN WELLBUTRIN IS COMBINED W/ SCOPALAMINE. Vital Signs Date Time Temp Pulse Resp B/P (MAP) Pulse Ox O2 Delivery O2 Flow Rate FiO2 01/28/17 20:34 16 01/28/17 20:02 37.1 81 16 156/85 98 Room Air Medications Administered Medications (Trade) Dose Ordered Sig/Rigo Route Start Time Stop Time Status Last Admin Dose Admin Diphenhydramine HCl (Benadryl Cap) 50 mg NOW ONCE PO 01/28/17 20:30 01/28/17 20:31 DC 01/28/17 20:24 50 MG Departure Information Impression Primary Impression: Reaction to insect bite Dispostion Home / Self-Care Condition GOOD Referrals Marivel Harrell MD (PCP) Patient Instructions ED Bite Sting Insect Local Allergic React, My [facility] Additional Instructions You have been treated in the Emergency Department for an Allergic Reaction to an insect bite. You may take Benadryl (diphenhydramine) 25-50 mg orally every 4-6 hours as needed for itching. This medication is [id number] and you will NOT need a prescription to purchase this at your local pharmacy. This medication may make you drowsy, so use caution when you take it. Apply cool compresses to the area to help reduce the rash. Avoid hot showers or hot baths, as this may make the rash worse. As with every Emergency Department visit, you should follow-up with your primary care provider in 2-3 days for reevaluation. Keep your scheduled appointment on Monday. Return to the Emergency Department if your current symptoms worsen despite treatment course outlined above, or if you develop any of the following symptoms : Increased redness, hot or painful to touch, streaking up the leg, fever/chills , wheezing or shortness of breath, tongue or face swelling, tightness in your throat, or fainting.
--- NOTE | 2017-01-28 20:38 | EMERGENCY ROOM VISIT NOTE ---
ED Visit Note First contact with patient: 20:11 Patient was seen by our PA/EXTERIOR DOOR INSTALLER. I was involved in the patient's care and did evaluate the patient myself. I was involved in the care throughout the ER stay. The patient presents with a rash in the area of a tick bite. The tick was only on for a very short time frame. She looks be having a allergic/histamine reaction. She is being discharged home on antihistamine medication. She will follow with her doctors office.
[2017-02-22] MEDS ORDERED: MAXALT PO (12:05)
[2017-03-19] MEDS ORDERED: TOPI100T20 PO (13:24)
[2017-03-19] MEDS ORDERED: GABA-113 PO (14:23)
[2017-03-19] MEDS ORDERED: ATV/1 PO (14:23)
[2017-04-12] MEDS ORDERED: LISI-461 PO (12:13)
[2017-04-19] MEDS ORDERED: SERT50TA PO (12:08)
== END 2017-01-28 20:34 | disposition home or self-care (01) ==
LOC: C.EDB 20:00 → C.EDD 20:34
DX: S80.862A Insect bite (nonvenomous), left lower leg, initial encounter (principal); W57.XXXA Bitten or stung by nonvenomous insect and other nonvenomous arthropods, initial encounter; R21 Rash and other nonspecific skin eruption; Q61.2 Polycystic kidney, adult type; F13.90 Sedative, hypnotic, or anxiolytic use, unspecified, uncomplicated; F43.10 Post-traumatic stress disorder, unspecified; Z98.84 Bariatric surgery status

== ENCOUNTER 2017-01-29 15:29 | Emergency (ER) | payer OTHER ==
[~2017-01-29] VITALS: Ht 158.8 cm; Wt 99.3 kg
[2017-01-29 15:36] VITALS: TEMP 37.1; Ht 158.8 cm; Wt 99.3 kg
--- NOTE | 2017-01-29 17:10 | DIAGNOSTIC IMAGING REPORT ---
ULTRASOUND LEFT LOWER EXTREMITY VENOUS CLINICAL HISTORY: Left leg pain. COMPARISON STUDY: Left lower extremity venous ultrasound dated 01/04/2016. TECHNIQUE: Real-time, grayscale, and color Doppler sonography of the deep veins of the left lower extremity was performed from the inguinal crease to the calf. Compression and augmentation were utilized. FINDINGS: There is no sonographic evidence of deep venous thrombosis identified in the left lower extremity. The common femoral, superficial femoral, and popliteal veins are patent and normally compressible. The greater saphenous vein and the profunda femoris vein at the junction with the common femoral vein are clear. The visualized calf veins are patent. IMPRESSION: There is no sonographic evidence of deep venous thrombosis identified in the left lower extremity. Electronically signed by: Xu Vigil M.D. 01/29/2017 5:09 PM Dictated Date/Time: 01/29/2017 5:08 PM
[2017-01-29 17:41] VITALS: BP 133/89; PULSE 64; O2SAT 99
--- NOTE | 2017-01-29 19:20 | EMERGENCY ROOM VISIT NOTE ---
History First contact with patient: 15:52 Chief Complaint: RASH Stated Complaint: L LEG PAIN,RASH,HEAVINESS History of Present Illness The patient is a 41 year old female who presents to the Emergency Room with complaints of persistent rash of her left lower extremity. The patient was seen and evaluated yesterday with his complaint. She was instructed on the use of Benadryl and conservative measures. She states that she took a dose of Benadryl without any improvement of her symptoms. The patient states that her rash is worse today than it was yesterday. The patient states that she has swelling into this leg and is concerned about a DVT. She does not have chest pain or chest tightness. No recent travel history. She rates her discomfort a 5/10. Review of Systems More than 10 systems were reviewed and otherwise negative with the exception of history of present illness. Past Medical/Surgical History Medical Problems: (1) a-port placement (2) Abdominal pain (3) Agoraphobia (4) Asthma (5) Bipolar I disorder (6) Chronic anemia (7) Chronic pelvic pain in female (8) Dynamic ileus (9) H/O drug abuse (10) Heavy menstrual bleeding (11) History of esophageal dilatation (12) Ileus (13) Polycystic kidney disease, adult type (14) Postgastric surgery syndrome (15) PTSD (16) Tubal ligation evaluation Surgical Problems: (1) excessive skin removal (2) gastric revision procedure with gastric bypass (3) H/O colonoscopy (4) H/O esophagogastroduodenoscopy (5) H/O exploratory laparotomy (6) H/O gastric bypass (7) H/O ventral hernia repair (8) H/O wisdom tooth extraction (9) lysis of adhesions (10) S/P cholecystectomy (11) S/P endometrial ablation (12) S/P laparoscopic hysterectomy (13) S/P panniculectomy (14) S/P partial gastrectomy (15) Status post unilateral salpingo-oophorectomy (16) wedge biopsy liver Social History Problems: (1) Gastroesophageal reflux disease (2) Hyperlipidemia Family History Cancer MOTHER (lung) Diabetes mellitus FATHER FH: gallbladder disease FH: lung disease FHx: heart disease FATHER Hypertension MOTHER Stroke FATHER Social History Smoking Status: Never Smoker Alcohol Use: none Drug Use: none Marital Status: , in relationship Housing Status: lives with significant other Occupation Status: employed Current/Historical Medications Scheduled Aripiprazole (Aripiprazole), 15 MG PO HS Cyanocobalamin (Cyanocobalamin), 1 DOSE IM Q3 MONTHS Fluticasone Propionate (Flovent Hfa), 2 PUFFS INH BID Fosaprepitant Dimeglumine (Emend), 1 DOSE IV Q10D Gabapentin (Neurontin), 300 MG PO BID Mirtazapine (Remeron), 7.5 MG PO HS Nadolol (Corgard), 40 MG PO HS Pediatric Multiple Vitamin W/ (Flintstones Chewable), 1 TAB PO BID Topiramate (Topamax), 100 MG PO BID Zolpidem Tartrate (Zolpidem Tartrate), 10 MG PO HS Scheduled PRN Acetaminophen (Tylenol), 1,000 MG PO Q6H PRN for Pain Albuterol Sulfate (Proair Respiclick), 2 PUFFS INH Q4H PRN for SOB/Wheezing Dronabinol (Marinol), 2.5 MG PO BID PRN for Pain Lorazepam (Ativan), 1 MG PO BID PRN for Anxiety Ondansetron (Ondansetron Odt), 8 MG PO Q8 PRN for Nausea Polyethylene Glycol 3350 (Miralax), 17 GM PO TID PRN for Constipation Triamcinolone Acet (Aristocort 0.1%), 1 APPLN TOP DAILY PRN for Itching Valacyclovir (Valtrex), 500 MG PO BID PRN for Outbreaks Allergies Coded Allergies: Morphine (Verified Allergy, Severe, TONGUE SWELLING, difficulty breathing/ wheezing, 01/12/17) tolerates hydromorphone Colestipol (Verified Allergy, Intermediate, red rash (no itching), 01/12/17 ) Cat Dander (Verified Allergy, Unknown, ITCHY WATERY EYES , 01/12/17) NUTS (Verified Allergy, Unknown, skin test showed nut allergy, 01/12/17) per pt, eats peanuts without issue Scopolamine (Verified Adverse Reaction, Severe, Seizure, 01/12/17) SEIZURES ONLY WHEN COMBINED W/ WELLBUTRIN. Promethazine (Verified Adverse Reaction, Intermediate, "CAN'T SIT STILL", 01/12/17) Bupropion (Verified Adverse Reaction, Unknown, Seizure, 01/12/17) SEIZURES WHEN WELLBUTRIN IS COMBINED W/ SCOPALAMINE. Physical Exam Vital Signs Date Time Temp Pulse Resp B/P (MAP) Pulse Ox O2 Delivery O2 Flow Rate FiO2 01/29/17 17:41 64 18 133/89 99 Room Air 01/29/17 15:36 37.1 71 18 143/90 96 Room Air Pain Rating (0-10): 0 Physical Exam VITALS: Vitals are noted on the nurse's note and reviewed by myself. Vital signs stable. GENERAL: Well-developed, well-nourished, white female, who is in no acute distress and resting comfortably. Patient is cooperative with the examination. HEAD: Normocephalic atraumatic. HEART: Regular rate and rhythm without murmurs gallops or rubs. LUNGS: Clear to auscultation bilaterally without wheezes, rales or rhonchi. No retractions or accessory muscle use. MUSCULOSKELETAL: There is a small area of dermatitis appreciated on the medial aspect of the distal left lower extremity just superior to the medial malleolus. This rash does not rashaun. It is not annular in nature and does not appear cellulitic. No palpable cord Medical Decision & Procedures ER Provider Diagnostic Interpretation: ULTRASOUND LEFT LOWER EXTREMITY VENOUS CLINICAL HISTORY: Left leg pain. COMPARISON STUDY: Left lower extremity venous ultrasound dated 01/04/2016. TECHNIQUE: Real-time, grayscale, and color Doppler sonography of the deep veins of the left lower extremity was performed from the inguinal crease to the calf. Compression and augmentation were utilized. FINDINGS: There is no sonographic evidence of deep venous thrombosis identified in the left lower extremity. The common femoral, superficial femoral, and popliteal veins are patent and normally compressible. The greater saphenous vein and the profunda femoris vein at the junction with the common femoral vein are clear. The visualized calf veins are patent. IMPRESSION: There is no sonographic evidence of deep venous thrombosis identified in the left lower extremity. ED Course Physical exam and history were performed. Nursing notes and EMR were reviewed. Patient appears to have a rash of the left lower extremity. She states this is worse than yesterday, however on examination the rash does appear to be fading and does not appear consistent with Lyme disease or cellulitis. The patient did voice a concern for a DVT, and ultrasound was performed without acute finding. The patient appears well for discharge home. She will be treated conservatively with [id number] Benadryl. She should follow with her primary care physician in the next few days for recheck. She was otherwise invited back to the ER with any new, worsening, or concerning symptoms. The chart was completed utilizing [employer] Speech Voice Recognition Software. Grammatical errors, random word insertions, pronoun errors, and incomplete sentences are an occasional consequence of this system due to software limitations, ambient noise, and hardware issues. Any formal questions or concerns about the content, text, or information contained within the body of this dictation should be directly addressed to the provider for clarification. . Medical Decision Differential diagnosis: Etiologies such as contact dermatitis, viral exanthem, urticaria, allergic reaction, Taylor-Ellis syndrome, toxic epidermal necrolysis, erythema multiforme, cellulitis, scabies, HSV, varicella, zoster, eczema, staph scalded skin syndrome, fungal infection, as well as others were entertained. Impression Primary Impression: Rash and nonspecific skin eruption Additional Impression: Swelling of lower extremity Departure Information Dispostion Home / Self-Care Condition GOOD Forms WORK / SCHOOL INSTRUCTIONS, HOME CARE DOCUMENTATION FORM, IMPORTANT VISIT INFORMATION Patient Instructions [facility] Additional Instructions You were seen and evaluated today on an emergency basis only. This is not a substitute for, or an effort to provide, complete comprehensive medical care. It is not possible to recognize and treat all injuries or illnesses in a single emergency department visit. For this reason it is recommended that you followup with your primary care physician this week for ongoing care and evaluation. Continue [id number] Benadryl as previously instructed. You are welcome to return to the emergency department anytime with new, worsening, or concerning symptoms. Problem Qualifiers
[2017-02-22] MEDS ORDERED: MAXALT PO (12:05)
[2017-03-19] MEDS ORDERED: TOPI100T20 PO (13:24)
[2017-03-19] MEDS ORDERED: GABA-113 PO (14:23)
[2017-03-19] MEDS ORDERED: ATV/1 PO (14:23)
[2017-04-12] MEDS ORDERED: LISI-461 PO (12:13)
[2017-04-19] MEDS ORDERED: SERT50TA PO (12:08)
== END 2017-01-29 18:05 | disposition home or self-care (01) ==
LOC: C.EDB 15:30 → C.EDD 18:05
DX: R21 Rash and other nonspecific skin eruption (principal); M79.89 Other specified soft tissue disorders; J45.909 Unspecified asthma, uncomplicated; F31.9 Bipolar disorder, unspecified; D64.9 Anemia, unspecified; Q61.2 Polycystic kidney, adult type; F43.10 Post-traumatic stress disorder, unspecified; Z83.3 Family history of diabetes mellitus; Z82.49 Family history of ischemic heart disease and other diseases of the circulatory system; Z82.3 Family history of stroke

== ENCOUNTER → 2017-02-28 | Outpatient (CLI) | payer OTHER ==
[~2017-02-28] MED LIST changes: +ACET-1256 PO; +ALBUAER INH; +ARIP1TAB8 PO; +ATV/1 PO; +CYCL10TA6 PO; +FLVHFA110 INH; +GABA-113 PO; +LISI-461 PO; +MAXALT PO; +MIRT15TA3 PO; +NF656 TD; +PEDICHW53 PO; +POLY150C4 PEG; +POTA20TA13 PO; +RIZA10TA18 PO; +SERT50TA PO; +TOPI100T20 PO; +TRMCR130WC TOP; +VALA500T60 PO; +ZFRODT/8 PO; +ZOLP10TA6 PO; +[UNRECOGNIZED DRUG - CODE] IV; +[UNRECOGNIZED DRUG - CODE] IV
[2017-02-28 13:33] LABS: URINE APPEARANCE CLEAR (CLEAR); URINE BILIRUBIN NEG (NEG); URINE COLOR YELLOW; URINE NITRITE NEG (NEG); URINE SPECIFIC GRAVITY 1.009 (1.000-1.030); UROBILINOGEN NEG (NEG)
[2017-02-28 13:46] LABS: MANUAL MICROSCOPIC REQUIRED? NO; REVIEW REQ? NO
== END | disposition home or self-care (01) ==
LOC: C.LABSPEC 11:13
PROVIDERS: ATTEND Family Medicine
DX: R10.2 Pelvic and perineal pain (principal)

== ENCOUNTER 2017-03-19 15:33 | Emergency (ER) | payer OTHER ==
[~2017-03-19] VITALS: Ht 158.8 cm; Wt 96.7 kg
[~2017-03-19 15:33] MED LIST changes: -ACET-1256 PO; -ALBUAER INH; -ARIP1TAB8 PO; -CYCL10TA6 PO; -FLVHFA110 INH; -LISI-461 PO; -MIRT15TA3 PO; -NADO20TA15 PO; -NF656 TD; -PEDICHW53 PO; -POLY150C4 PEG; -POTA20TA13 PO; -RIZA10TA18 PO; -SERT50TA PO; -TRMCR130WC TOP; -VALA500T60 PO; -ZFRODT/8 PO; -ZOLP10TA6 PO; -[UNRECOGNIZED DRUG - CODE] IV; -[UNRECOGNIZED DRUG - CODE] IV
[2017-03-19 15:38] VITALS: TEMP 37; Ht 158.8 cm; Wt 96.7 kg
[2017-03-19] MEDS ORDERED: ZFRODT/8 PO (15:40)
[2017-03-19] MEDS ORDERED: SODIUM CHLORIDE 0.9% 1000ML 1,000 ML IV STA (16:19)
[2017-03-19] MEDS ORDERED: HYDROmorphone INJ 1 MG/ML SYR IV STA (16:19)
[2017-03-19] MEDS ORDERED: KETOROLAC TROMETHAMINE 30 MG/ML VIAL IV STA (16:19)
[2017-03-19] MEDS ORDERED: ONDANSETRON INJ 2 MG/ML 2 ML VIAL IV STA (16:19)
--- NOTE | 2017-03-19 16:23 | EMERGENCY ROOM VISIT NOTE ---
History Report prepared by Jacqueline: Gali Leach Under the Supervision of: Dr. Isaac Berry M.D. First contact with patient: 15:50 Chief Complaint: BACK PAIN Stated Complaint: CHILLS, BACK PAIN, FEVER, REFFERRED BY [facility] History of Present Illness The patient is a 41 year old female who presents to the Emergency Room with complaints of constant back pain beginning today. The patient states that she began having chills and feeling like her "bones are cold" this morning. She complains of a fever and nausea and notes that she went to [facility] today before being sent here. She notes that she has a history of back pain. The patient denies any abdominal pain and urinary symptoms. Source of History: patient Onset: today Position: back Timing: constant Associated Symptoms: + fevers, + chills, + nausea, No abdominal pain, No urinary symptoms Review of Systems See HPI for pertinent positives & negatives. A total of 10 systems reviewed and were otherwise negative. 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 (15) PTSD (16) Tubal ligation evaluation Surgical Problems: (1) excessive skin removal (2) gastric revision procedure with gastric bypass (3) H/O colonoscopy (4) H/O esophagogastroduodenoscopy (5) H/O exploratory laparotomy (6) H/O gastric bypass (7) H/O ventral hernia repair (8) H/O wisdom tooth extraction (9) lysis of adhesions (10) S/P cholecystectomy (11) S/P endometrial ablation (12) S/P laparoscopic hysterectomy (13) S/P panniculectomy (14) S/P partial gastrectomy (15) Status post unilateral salpingo-oophorectomy (16) wedge biopsy liver Social History Problems: (1) Gastroesophageal reflux disease (2) Hyperlipidemia Family History Cancer MOTHER (lung) Diabetes mellitus FATHER FH: gallbladder disease FH: lung disease FHx: heart disease FATHER Hypertension MOTHER Stroke FATHER Social History Smoking Status: Never Smoker Alcohol Use: none Drug Use: none Marital Status: , in relationship Housing Status: lives with significant other Occupation Status: employed Current/Historical Medications Scheduled Aripiprazole (Abilify), 10 MG PO HS Cyanocobalamin (Cyanocobalamin), 1,000 MCG IM Q3 MONTHS Cyclobenzaprine Hcl (Flexeril), 10 MG PO TID Fluticasone Propionate (Flovent Hfa), 2 PUFFS INH BID Fosaprepitant Dimeglumine (Emend), 75 MG IV WK Gabapentin (Neurontin), 300 MG PO BID Lidocaine (Lidoderm Patch 5%), 1 PATCH TD DIRECTED Mirtazapine (Remeron), 7.5 MG PO HS Pediatric Multiple Vitamin W/ (Flintstones Gummies), 1 TAB PO BID Polysaccharide Iron Complex (Ferrex 150), 150 MG PEG BID Potassium Chloride Microencaps (Potassium Chloride Er), 20 MEQ PO DAILY Sodium Chloride (Gu Irrigant) (Sodium Chloride), 250 ML IV WK Topiramate (Topamax), 100 MG PO BID Zolpidem Tartrate (Zolpidem Tartrate), 10 MG PO HS Scheduled PRN Acetaminophen (Tylenol), 1,000 MG PO Q6H PRN for Pain Albuterol Sulfate (Proventil Hfa), 2 PUFFS INH Q4H PRN for SOB/Wheezing Lorazepam (Ativan), 1 MG PO BID PRN for Anxiety Ondansetron (Ondansetron Odt), 8 MG PO Q8 PRN for Nausea Rizatriptan Benzoate (Maxalt), 10 MG PO UD PRN for Migraine Triamcinolone Acet (Aristocort 0.1%), 1 APPLN TOP BID PRN for Itching Valacyclovir (Valtrex), 500 MG PO BID PRN for Outbreaks Allergies Coded Allergies: Morphine (Verified Allergy, Severe, TONGUE SWELLING, difficulty breathing/ wheezing, 03/08/17) tolerates hydromorphone Colestipol (Verified Allergy, Intermediate, red rash (no itching), 03/08/17 ) Cat Dander (Verified Allergy, Unknown, ITCHY WATERY EYES , 03/08/17) NUTS (Verified Allergy, Unknown, skin test showed nut allergy, 03/08/17) per pt, eats peanuts without issue Scopolamine (Verified Adverse Reaction, Severe, Seizure, 03/08/17) SEIZURES ONLY WHEN COMBINED W/ WELLBUTRIN. Promethazine (Verified Adverse Reaction, Intermediate, "CAN'T SIT STILL", 03/08/17) Bupropion (Verified Adverse Reaction, Unknown, Seizure, 03/08/17) SEIZURES WHEN WELLBUTRIN IS COMBINED W/ SCOPALAMINE. Physical Exam Vital Signs Date Time Temp Pulse Resp B/P (MAP) Pulse Ox O2 Delivery O2 Flow Rate FiO2 03/19/17 18:39 65 18 161/96 99 Room Air 03/19/17 17:50 78 18 154/106 96 Room Air 03/19/17 15:38 37.0 78 18 176/120 95 Room Air Physical Exam GENERAL: Patient is a healthy-appearing well-nourished female HEAD: Normocephalic atraumatic EYES: Ocular movements intact pupils equal and react to light OROPHARYNX mucous membranes are moist no exudates present no erythema or edema present NECK: Supple no nuchal rigidity CHEST: Good equal expansion LUNGS: Clear and equal to auscultation CARDIAC: Normal S1 and S2 ABDOMEN: Soft nontender no guarding BACK: No CVA tenderness EXTREMITIES: No pain upon palpation normal muscle strength in all groups no clubbing cyanosis or edema NEURO: Patient is following commands and answering questions appropriately. Alert and oriented x3 Cranial Nerves 2-12 grossly intact Medical Decision & Procedures ER Provider Diagnostic Interpretation: Radiology results as stated below per my review and radiologist interpretation: (RENAL)RETROPERITON COMP TECHNIQUE: Multiple real-time sonographic images of the kidneys and urinary bladder were obtained assessing grayscale appearance and color flow FINDINGS: Right kidney measures 10.9 cm in length. No shadowing calculi, hydronephrosis or focal mass. Cortical medullary differentiation is within normal limits. Left kidney measures 11.4 cm in length. No shadowing calculi, hydronephrosis or focal mass. Cortical medullary differentiation is within normal limits. Urinary bladder is unremarkable with bilateral ureteral jets are not identified. IMPRESSION: Unremarkable sonographic appearance of the kidneys and urinary bladder without renal calculi or hydronephrosis. The above report was generated using voice recognition software. It may contain grammatical, syntax or spelling errors. Electronically signed by: Mp Singleton M.D. 03/19/2017 6:30 PM Dictated Date/Time: 03/19/2017 6:27 PM KUB FINDINGS: The bowel gas pattern appears nonobstructive. There is gaseous distention of the colon. Cholecystectomy clips are noted. There is suture material seen within the left hemipelvis region and left mid abdomen. There is no organomegaly. No renal calculi. No ureteral calculi. No pneumoperitoneum or pneumatosis. No fracture. IMPRESSION: 1. Nonobstructive bowel gas pattern. 2. Gaseous distention of the colon. 3. No definite nephrolithiasis identified. Electronically signed by: Mp Singleton M.D. 03/19/2017 6:27 PM Dictated Date/Time: 03/19/2017 6:21 PM Laboratory Results 03/19/17 17:31 Red Blood Count 4.03, Mean Corpuscular Volume 76.4, Mean Corpuscular Hemoglobin 23.3, Mean Corpuscular Hemoglobin Concent 30.5, Mean Platelet Volume 9.2, Neutrophils (%) (Auto) 69.3, Lymphocytes (%) (Auto) 18.4, Monocytes (%) (Auto) 10.9, Eosinophils (%) (Auto) 1.3, Basophils (%) (Auto) 0.0, Neutrophils # (Auto ) 4.71, Lymphocytes # (Auto) 1.25, Monocytes # (Auto) 0.74, Eosinophils # (Auto ) 0.09, Basophils # (Auto) 0.00 03/19/17 17:31 Test 03/19/17 16:12 03/19/17 17:31 Urine Color YELLOW Urine Appearance CLEAR (CLEAR) Urine pH 5.0 (4.5-7.5) Urine Specific [place] 1.019 (1.000-1.030) Urine Protein NEG (NEG) Urine Glucose (UA) NEG (NEG) Urine Ketones NEG (NEG) Urine Occult Blood NEG (NEG) Urine Nitrite NEG (NEG) Urine Bilirubin NEG (NEG) Urine Urobilinogen NEG (NEG) Urine Leukocyte Esterase NEG (NEG) White Blood Count 6.80 K/uL (4.8-10.8) Red Blood Count 4.03 M/uL (4.2-5.4) Hemoglobin 9.4 g/dL (12.0-16.0) Hematocrit 30.8 % (37-47) Mean Corpuscular Volume 76.4 fL (80-100) Mean Corpuscular Hemoglobin 23.3 pg (25-34) Mean Corpuscular Hemoglobin Concent 30.5 g/dl (32-36) Platelet Count 232 K/uL (130-400) Mean Platelet Volume 9.2 fL (7.4-10.4) Neutrophils (%) (Auto) 69.3 % Lymphocytes (%) (Auto) 18.4 % Monocytes (%) (Auto) 10.9 % Eosinophils (%) (Auto) 1.3 % Basophils (%) (Auto) 0.0 % Neutrophils # (Auto) 4.71 K/uL (1.4-6.5) Lymphocytes # (Auto) 1.25 K/uL (1.2-3.4) Monocytes # (Auto) 0.74 K/uL (0.11-0.59) Eosinophils # (Auto) 0.09 K/uL (0-0.5) Basophils # (Auto) 0.00 K/uL (0-0.2) RDW Standard Deviation 60.7 fL (36.4-46.3) RDW Coefficient of Variation 21.5 % (11.5-14.5) Immature Granulocyte % (Auto) 0.1 % Immature Granulocyte # (Auto) 0.01 K/uL (0.00-0.02) Hypochromasia PRESENT Anisocytosis PRESENT Macrocytosis PRESENT Ovalocytes 1+ Echinocytes 2+ Anion Gap 10.0 mmol/L (3-11) Est Creatinine Clear Calc Drug Dose 121.8 ml/min Estimated GFR () 126.3 Estimated GFR (Non- 109.0 BUN/Creatinine Ratio 8.3 (10-20) Calcium Level 7.6 mg/dl (8.5-10.1) Total Bilirubin 0.3 mg/dl (0.2-1) Direct Bilirubin 0.1 mg/dl (0-0.2) Aspartate Amino Transf (AST/SGOT) 36 U/L (15-37) Alanine Aminotransferase (ALT/SGPT) 23 U/L (12-78) Alkaline Phosphatase 134 U/L (45-117) Total Protein 6.6 gm/dl (6.4-8.2) Albumin 2.8 gm/dl (3.4-5.0) Lipase 137 U/L (73-393) Labs reviewed by ED physician. Medications Administered Medications (Trade) Dose Ordered Sig/Rigo Route Start Time Stop Time Status Last Admin Dose Admin Sodium Chloride 1,000 ml @ 999 mls/hr Q1H1M STAT IV 03/19/17 16:19 03/19/17 17:19 DC 03/19/17 17:01 999 MLS/HR Ketorolac Tromethamine (Toradol Inj) 30 mg NOW STAT IV 03/19/17 16:19 03/19/17 16:22 DC 03/19/17 16:53 30 MG Ondansetron HCl (Zofran Inj) 4 mg NOW STAT IV 03/19/17 16:19 03/19/17 16:22 DC 03/19/17 16:52 4 MG Hydromorphone HCl (Dilaudid Inj) 1 mg NOW STAT IV 03/19/17 16:19 03/19/17 16:22 DC 03/19/17 16:53 1 MG Methylprednisolone Sodium Succinate (Solu-Medrol IV) 125 mg NOW STAT IV 03/19/17 16:45 03/19/17 16:46 DC 03/19/17 17:06 125 MG Diphenhydramine HCl (Benadryl Inj) 50 mg NOW STAT IV 03/19/17 16:45 03/19/17 16:46 DC 03/19/17 17:05 50 MG Potassium Chloride (Klor-Con M10) 100 meq NOW STAT PO 03/19/17 18:05 03/19/17 18:06 DC 03/19/17 18:38 100 MEQ Cyclobenzaprine HCl (Flexeril Tab) 10 mg NOW STAT PO 03/19/17 18:26 03/19/17 18:27 DC 03/19/17 18:38 10 MG Heparin Sodium (Porcine) (Heparin 100 Unit/ml 5ml Flush) 5 ml STK-MED ONCE .ROUTE 03/19/17 18:57 03/19/17 18:58 DC 03/19/17 18:59 5 ML ED Course 1550: Past medical records reviewed. The patient was evaluated in room A4. A complete history and physical examination was performed. 1619: Dilaudid Inj 1mg IV, Zofran Inj 4mg IV, Toradol Inj 30mg IV, Sodium Chloride 1000 ml @ 999 mls/hr IV. 1645: Benadryl Inj 50mg IV, Solu-Medrol IV 125mg IV. 180: Lidocaine 1 patch TD, Potassium Chloride 100meq PO. 1825: Flexeril Tab 10mg PO. 1846: Upon reexamination the patient is doing well. I discussed results and treatment plan with the patient. She verbalizes agreement and understanding. The patient is ready for discharge. Medical Decision Differential diagnosis: Etiologies such as musculoskeletal, disc herniation, fracture, aortic disease, metastatic disease, cord compression, discitis, infection, renal colic, gastrointestinal, acute exacerbation of chronic back pain, sciatica, cauda equina, as well as others were entertained. This is a 41-year-old female who presents emergency department complaining of low back pain. Patient was sent for KUB as well as an ultrasound however nothing acute shown. I will note that the patient is afebrile here and does not have an elevation in her white blood count cell count. Based on this I feel that the patient as well as to be discharged home. She was given her monthly pain shot of Dilaudid however she was told she would no longer be receiving pain medications for her chronic conditions in the emergency department. I will treat the patient for muscle skeletal pain and place her on Flexeril as well as Lidoderm. Patient was in agreement with the treatment plan. Medication Reconcilliation Current Medication List: was personally reviewed by me Blood Pressure Screening Patient's blood pressure: Elevated blood pressure Blood pressure disposition: Referred to PCP Impression Primary Impression: Low back pain Scribe Attestation The scribe's documentation has been prepared under my direction and personally reviewed by me in its entirety. I confirm that the note above accurately reflects all work, treatment, procedures, and medical decision making performed by me. Departure Information Dispostion Home / Self-Care Prescriptions Lidocaine (Lidoderm Patch 5%) 1 Ea Tdsy 1 PATCH TD DIRECTED for 5 Days, #5 PATCH Prov: Isaac Berry MD 03/19/17 Cyclobenzaprine Hcl (FLEXERIL) 10 Mg Tab 10 MG PO TID, #21 TAB Prov: Isaac Berry MD 03/19/17 Referrals Marivel Harrell MD (PCP) Forms HOME CARE DOCUMENTATION FORM, IMPORTANT VISIT INFORMATION Patient Instructions ED Exercises Lumbar Muscles, Lumbar Pain Causes, [facility] Additional Instructions Follow up with Dr Newman's office for continued back pain You were found to have an elevated blood pressure today (>120 sytolic or >90 diastolic). Per medicare guidelines, you need to follow up with this blood pressure screening with your Primary Care Physician (PCP). For a new PCP call [phone]. You received narcotic or benzodiazepene medication while in the emergency room today. Do not drive, operate heavy machinery, or drink alcohol under the influence of this medication. Take 600 mg Ibuprofen every 6 hours Take lidoderm patch off after 12 hours Take flexeril for breakthrough pain You have been examined and treated today on an emergency basis only. This is not a substitute for, or an effort to provide, complete comprehensive medical care. It is impossible to recognize and treat all injuries or illnesses in a single emergency department visit. It is therefore important that you follow up closely with Dr Harrell. Call as soon as possible for an appointment. Thank you for your time and consideration. I look forward to speaking with you again soon. Please don't hesitate to call us if you have any questions. Problem Qualifiers Primary Impression: Low back pain Chronicity: acute Back pain laterality: bilateral Sciatica presence: without sciatica Qualified Codes: M54.5 - Low back pain
[2017-03-19 16:30] LABS: URINE APPEARANCE CLEAR (CLEAR); URINE BILIRUBIN NEG (NEG); URINE COLOR YELLOW; URINE NITRITE NEG (NEG); URINE SPECIFIC GRAVITY 1.019 (1.000-1.030); UROBILINOGEN NEG (NEG)
[2017-03-19 16:31] LABS: MANUAL MICROSCOPIC REQUIRED? NO; REVIEW REQ? NO
[2017-03-19] MEDS ORDERED: [UNRECOGNIZED DRUG - CODE] IV (16:36)
[2017-03-19] MEDS ORDERED: PEDICHW53 PO (16:36)
[2017-03-19] MEDS ORDERED: POTA20TA13 PO (16:36)
[2017-03-19] MEDS ORDERED: POLY150C4 PEG (16:36)
[2017-03-19] MEDS ORDERED: ARIP1TAB8 PO (16:36)
[2017-03-19] MEDS ORDERED: ALBUAER INH (16:36)
[2017-03-19] MEDS ORDERED: RIZA10TA18 PO (16:36)
[2017-03-19] MEDS ORDERED: CYNI1000 IM (16:38)
[2017-03-19] MEDS ORDERED: [UNRECOGNIZED DRUG - CODE] IV (16:38)
[2017-03-19] MEDS ORDERED: DiphenhydrAMINE HCL 50 MG/ML VIAL IV STA (16:45)
[2017-03-19] MEDS ORDERED: METHYLPREDNISOLONE 125 MG VIAL IV STA (16:45)
[2017-03-19 17:39] LABS: EOS % 1.3 %; HEMATOCRIT 30.8 % (37-47); IG% 0.1 %; LYMPH % 18.4 %; LYMPH ABS # 1.25 K/uL (1.2-3.4); MEAN CELL VOLUME 76.4 fL (80-100); MEAN CORPUSCULAR HEMOGLOBIN 23.3 pg (25-34); MEAN CORPUSCULAR HGB CONC 30.5 g/dl (32-36); MEAN PLATELET VOLUME 9.2 fL (7.4-10.4); MONO % 10.9 %; NEUT % 69.3 %; PLATELET COUNT 232 K/uL (130-400); RED BLOOD COUNT 4.03 M/uL (4.2-5.4)
[2017-03-19 18:00] LABS: BUN/CREATININE RATIO 8.3 (10-20); CALCIUM 7.6 mg/dl (8.5-10.1); CREATININE 0.66 mg/dl (0.60-1.20)
[2017-03-19 18:04] LABS: ANISOCYTOSIS PRESENT; COMPLETE YES; ECHINOCYTES 2+; HYPOCHROMIA PRESENT; OVALOCYTES 1+
[2017-03-19] MEDS ORDERED: LIDODERM (LIDOCAINE) PATCH 5% TD STA (18:05)
[2017-03-19] MEDS ORDERED: POTASSIUM CHLORIDE 10 MEQ TABCR PO STA (18:05)
[2017-03-19] MEDS ORDERED: CYCLOBENZAPRINE HCL 5 MG TAB PO STA (18:26)
--- NOTE | 2017-03-19 18:29 | DIAGNOSTIC IMAGING REPORT ---
KUB HISTORY: Acute right sided flank pain COMPARISON: None. FINDINGS: The bowel gas pattern appears nonobstructive. There is gaseous distention of the colon. Cholecystectomy clips are noted. There is suture material seen within the left hemipelvis region and left mid abdomen. There is no organomegaly. No renal calculi. No ureteral calculi. No pneumoperitoneum or pneumatosis. No fracture. IMPRESSION: 1. Nonobstructive bowel gas pattern. 2. Gaseous distention of the colon. 3. No definite nephrolithiasis identified. Electronically signed by: Mp Singleton M.D. 03/19/2017 6:27 PM Dictated Date/Time: 03/19/2017 6:21 PM
--- NOTE | 2017-03-19 18:31 | DIAGNOSTIC IMAGING REPORT ---
(RENAL)RETROPERITON COMP HISTORY: 41 years-old Female acute right-sided sided flank pain COMPARISON: KUB of same day, CTA chest 12/27/2016, CT abdomen and pelvis 11/20/2015 TECHNIQUE: Multiple real-time sonographic images of the kidneys and urinary bladder were obtained assessing grayscale appearance and color flow FINDINGS: Right kidney measures 10.9 cm in length. No shadowing calculi, hydronephrosis or focal mass. Cortical medullary differentiation is within normal limits. Left kidney measures 11.4 cm in length. No shadowing calculi, hydronephrosis or focal mass. Cortical medullary differentiation is within normal limits. Urinary bladder is unremarkable with bilateral ureteral jets are not identified. IMPRESSION: Unremarkable sonographic appearance of the kidneys and urinary bladder without renal calculi or hydronephrosis. The above report was generated using voice recognition software. It may contain grammatical, syntax or spelling errors. Electronically signed by: Mp Singleton M.D. 03/19/2017 6:30 PM Dictated Date/Time: 03/19/2017 6:27 PM
[2017-03-19 18:39] VITALS: BP 161/96; PULSE 65; O2SAT 99
[2017-03-19] MEDS ORDERED: CYCL10TA6 PO (18:42)
[2017-03-19] MEDS ORDERED: NF656 TD (18:42)
[2017-03-19] MEDS ORDERED: VALA500T60 PO (20:00)
[2017-03-19] MEDS ORDERED: TRMCR130WC TOP (21:00)
[2017-03-19] MEDS ORDERED: FLVHFA110 INH (21:00)
[2017-03-19] MEDS ORDERED: ZOLP10TA6 PO (21:08)
[2017-03-19] MEDS ORDERED: ACET-1256 PO (21:35)
[2017-03-19] MEDS ORDERED: MIRT15TA3 PO (22:54)
--- NOTE | 2017-03-20 17:25 | Pharmacy Progress Note ---
ED Pharmacist Progress Note Date of Service: Mar 20, 2017. Received call from Michelle Gray (Sudha) requesting clarification on lidoderm patch. Clarified: 1 patch TD *daily* as directed. Sudha also noted that patches come in packs of 30, could not be broken. Provided verbal consent to dispense #30. Case discussed with Dr. Berry.
[2017-04-12] MEDS ORDERED: LISI-461 PO (12:13)
[2017-04-19] MEDS ORDERED: SERT50TA PO (12:08)
== END 2017-03-19 19:07 | disposition home or self-care (01) ==
LOC: C.EDB 15:34 → C.EDA 19:07
DX: M54.5 Low back pain (principal); J45.909 Unspecified asthma, uncomplicated; F31.9 Bipolar disorder, unspecified; D64.9 Anemia, unspecified; F43.10 Post-traumatic stress disorder, unspecified; Z83.3 Family history of diabetes mellitus; Z82.49 Family history of ischemic heart disease and other diseases of the circulatory system; Z82.3 Family history of stroke

== ENCOUNTER → 2017-04-10 | Outpatient (CLI) | payer OTHER ==
[~2017-04-10] MED LIST changes: +ACET-1256 PO; -ALBU18002 INH; +ALBUAER INH; -ARIP1TAB16 PO; +ARIP1TAB8 PO; -DRON2.5C PO; +FLVHFA110 INH; +LISI-461 PO; -MAXALT PO; +MIRT15TA3 PO; +NF656 TD; -PEDICHW50 PO; +PEDICHW53 PO; +POLY150C4 PEG; -POLY335019 PO; +POTA20TA13 PO; +RIZA10TA18 PO; +SERT50TA PO; +TRMCR130WC TOP; +VALA500T60 PO; +ZFRODT/8 PO; +ZOLP10TA6 PO; +[UNRECOGNIZED DRUG - CODE] IV; +[UNRECOGNIZED DRUG - CODE] IV; -[UNRECOGNIZED DRUG - CODE] IV
== END | disposition home or self-care (01) ==
LOC: C.LABBC 10:01
PROVIDERS: ATTEND Family Medicine
DX: E87.6 Hypokalemia (principal)

== ENCOUNTER → 2017-04-18 | Outpatient (CLI) | payer OTHER ==
[~2017-04-18] MED LIST changes: +CEPH500C PO; -POLY150C4 PEG; +POLY150C4 PO
[2017-04-18 11:57] LABS: URINE APPEARANCE CLEAR (CLEAR); URINE BILIRUBIN NEG (NEG); URINE COLOR YELLOW; URINE NITRITE NEG (NEG); URINE SPECIFIC GRAVITY 1.007 (1.000-1.030); UROBILINOGEN NEG (NEG)
[2017-04-18 12:19] LABS: MANUAL MICROSCOPIC REQUIRED? NO; REVIEW REQ? NO
== END | disposition home or self-care (01) ==
LOC: C.LABSPEC 11:12
PROVIDERS: ATTEND Nurse Practitioner Family
DX: R39.9 Unspecified symptoms and signs involving the genitourinary system (principal)

== ENCOUNTER 2017-05-08 17:26 | Emergency (ER) | payer OTHER ==
[~2017-05-08] VITALS: Ht 157.5 cm; Wt 96.0 kg
[~2017-05-08 17:26] MED LIST changes: -CEPH500C PO
[2017-05-08 17:29] VITALS: TEMP 37.1; Ht 157.5 cm; Wt 96.0 kg
[2017-05-08] MEDS ORDERED: CEPH500C PO (18:14)
[2017-05-08 18:28] VITALS: BP 146/112; PULSE 74; O2SAT 98
--- NOTE | 2017-05-08 20:14 | EMERGENCY ROOM VISIT NOTE ---
History Report prepared by Jacqueline: Bran Casas Under the Supervision of: Dr. Rafael Mayen M.D. First contact with patient: 17:46 Chief Complaint: HEADACHE Stated Complaint: HEAD FEELS TIGHT, FACE FEELS HOT, DIZZINESS History of Present Illness The patient is a 41 year old female who presents to the Emergency Room with complaints of a headache that began yesterday. She rates her pain a 4/10 in severity. The patient has a past medical history of migraines that she experiences "through her bilateral eyes." However, she says that this is not a typical migraine. She is having a lot of pressure to the top and her head and a burning sensation to her face. She denies any trauma or recent injury. She denies any history of sinus disorders/disease. She denies any fevers, nausea, vomiting, numbness, or weakness. Source of History: patient Onset: yesterday Position: head Symptom Intensity: 4/10 Quality: pressure Timing: constant Associated Symptoms: + diarrhea (chronic), No fevers, No nausea, No vomiting , No weakness, No numbness Note: She is experiencing a burning sensation to her face. She denies any trauma or injury. Review of Systems See HPI for pertinent positives & negatives. A total of 10 systems reviewed and were otherwise negative. 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 (15) PTSD (16) Tubal ligation evaluation Surgical Problems: (1) excessive skin removal (2) gastric revision procedure with gastric bypass (3) H/O colonoscopy (4) H/O esophagogastroduodenoscopy (5) H/O exploratory laparotomy (6) H/O gastric bypass (7) H/O ventral hernia repair (8) H/O wisdom tooth extraction (9) lysis of adhesions (10) S/P cholecystectomy (11) S/P endometrial ablation (12) S/P laparoscopic hysterectomy (13) S/P panniculectomy (14) S/P partial gastrectomy (15) Status post unilateral salpingo-oophorectomy (16) wedge biopsy liver Social History Problems: (1) Gastroesophageal reflux disease (2) Hyperlipidemia Family History Cancer MOTHER (lung) Diabetes mellitus FATHER FH: gallbladder disease FH: lung disease FHx: heart disease FATHER Hypertension MOTHER Stroke FATHER Social History Smoking Status: Never Smoker Alcohol Use: none Drug Use: none Marital Status: , in relationship Housing Status: lives with significant other Occupation Status: employed Current/Historical Medications Scheduled Aripiprazole (Abilify), 10 MG PO HS Cephalexin Monohydrate (Keflex), 500 MG PO QID Cyanocobalamin (Cyanocobalamin), 1,000 MCG IM Q3 MONTHS Fluticasone Propionate (Flovent Hfa), 2 PUFFS INH BID Fosaprepitant Dimeglumine (Emend), 75 MG IV WK Gabapentin (Neurontin), 300 MG PO BID Lisinopril (Zestril), 10 MG PO DAILY Mirtazapine (Remeron), 7.5 MG PO HS Pediatric Multiple Vitamin W/ (Flintstones Gummies), 1 TAB PO BID Polysaccharide Iron Complex (Ferrex 150), 150 MG PO BID Potassium Chloride Microencaps (Potassium Chloride Er), 20 MEQ PO DAILY Sertraline Hcl (Zoloft), 50 MG PO DAILY Sodium Chloride (Gu Irrigant) (Sodium Chloride), 250 ML IV WK Topiramate (Topamax), 100 MG PO BID Zolpidem Tartrate (Zolpidem Tartrate), 10 MG PO HS Scheduled PRN Acetaminophen (Tylenol), 1,000 MG PO Q6H PRN for Pain Albuterol Sulfate (Proventil Hfa), 2 PUFFS INH Q4H PRN for SOB/Wheezing Lorazepam (Ativan), 1 MG PO BID PRN for Anxiety Ondansetron (Ondansetron Odt), 8 MG PO Q8 PRN for Nausea Rizatriptan Benzoate (Maxalt), 10 MG PO UD PRN for Migraine Triamcinolone Acet (Aristocort 0.1%), 1 APPLN TOP BID PRN for Itching Valacyclovir (Valtrex), 500 MG PO BID PRN for Outbreaks Allergies Coded Allergies: Morphine (Verified Allergy, Severe, TONGUE SWELLING, difficulty breathing/ wheezing, 05/03/17) tolerates hydromorphone Colestipol (Verified Allergy, Intermediate, red rash (no itching), ) Cat Dander (Verified Allergy, Unknown, ITCHY WATERY EYES , 05/03/17) NUTS (Verified Allergy, Unknown, skin test showed nut allergy, 05/03/17) per pt, eats peanuts without issue Scopolamine (Verified Adverse Reaction, Severe, Seizure, 05/03/17) SEIZURES ONLY WHEN COMBINED W/ WELLBUTRIN. Promethazine (Verified Adverse Reaction, Intermediate, "CAN'T SIT STILL", 05/03/17) Bupropion (Verified Adverse Reaction, Unknown, Seizure, 05/03/17) SEIZURES WHEN WELLBUTRIN IS COMBINED W/ SCOPALAMINE. Physical Exam Vital Signs Date Time Temp Pulse Resp B/P (MAP) Pulse Ox O2 Delivery O2 Flow Rate FiO2 05/08/17 18:28 74 20 146/112 98 05/08/17 17:29 37.1 101 18 175/131 98 Room Air Physical Exam Constitutional: Vital signs reviewed. Well-appearing. Head: Increased warmth with a deep erythematous rash to the bilateral cheeks, not involving the nose but involving the nasolabial folds. Eyes: Pupils are equal round reactive to light. Conjunctiva are noninjected. ENT: Pharynx is clear without erythema or exudate. Mucous membranes are moist. Neck supple without meningeal signs. Respiratory: Clear to auscultation bilaterally. Breath sounds are equal bilaterally. Cardiovascular: Regular rate and rhythm. No rubs or gallops. GI: Soft, nondistended and nontender. Bowel sounds are present. Musculoskeletal: No peripheral edema. No lower extremity tenderness. Integumentary: No cyanosis. Neurological: The patient is awake and alert. Cranial nerves II-XII are intact. Motor is 5 out of 5 all extremities. Sensation is intact to light touch all extremities. Normal speech. No pronator drift. Psychiatric: Normal affect. Medical Decision & Procedures ED Course 1745: The patient was evaluated in room C2. A complete history and physical exam was performed. 1829: Upon reevaluation, the patient appeared to have improvement of her symptoms. I discussed tonight's findings with her. She verbalized agreement of the treatment plan. She was discharged home. Medical Decision This is a 41-year-old female who presents with a rash to her face and headache. Differential diagnosis includes erysipelas, cellulitis, malar rash, parvovirus. I did perform a limited focused review of portions of the patient' s old chart on the electronic medical record. The patient was seen in the ER in February for low back pain. She received a KUB and a renal US that were unremarkable. I did evaluate the patient as noted above. The patient is presenting with a rash to her face. It is erythematous and warm to touch. She describes the pain as burning and has an associated headache. She denies any fevers or vomiting. She is otherwise well-appearing. Her rash does not appear to be consistent with a malar rash. It does not involve the bridge of the nose and involves nasolabial folds. The borders are not well demarcated as well. Her symptoms seem to be more consistent with erysipelas orofacial infection. I did recommend antibiotic treatment and close follow up with her doctor. She was discharged with a prescription for Keflex. Medication Reconcilliation Current Medication List: was personally reviewed by me Blood Pressure Screening Patient's blood pressure: Elevated blood pressure Blood pressure disposition: Referred to PCP Impression Primary Impression: Facial rash Additional Impression: Headache Scribe Attestation The scribe's documentation has been prepared under my direct and personally reviewed by me in its entirety. I confirm that the note above accurately reflects all work, treatment, procedures, and medical decision making performed by me. Departure Information Dispostion Home / Self-Care Prescriptions Cephalexin Monohydrate (Keflex) 500 Mg Cap 500 MG PO QID for 7 Days, #28 CAP Prov: Rafael Mayen M.D. 05/08/17 Referrals Marivel Harrell MD (PCP) Forms HOME CARE DOCUMENTATION FORM, IMPORTANT VISIT INFORMATION Patient Instructions My [facility] Additional Instructions You have been examined and treated today on an emergency basis only. This is not a substitute for, or an effort to provide, complete comprehensive medical care. It is impossible to recognize and treat all injuries or illnesses in a single emergency department visit. It is therefore important that you follow up closely with your physician. Call as soon as possible for an appointment. Return for worsening symptoms or if you develop fever, vomiting, or any other concerning symptoms. Problem Qualifiers Additional Impression: Headache Headache type: unspecified Headache chronicity pattern: acute headache Intractability: not intractable Qualified Codes: R51 - Headache
[2017-05-10] MEDS ORDERED: CLON0.1T12 PO (12:13)
== END 2017-05-08 18:29 | disposition home or self-care (01) ==
LOC: C.EDB 17:27 → C.EDC 18:29
DX: R21 Rash and other nonspecific skin eruption (principal); R51 Headache; R19.7 Diarrhea, unspecified; F40.00 Agoraphobia, unspecified; J45.909 Unspecified asthma, uncomplicated; F31.9 Bipolar disorder, unspecified; R10.2 Pelvic and perineal pain; K56.7 Ileus, unspecified; Q61.2 Polycystic kidney, adult type; K91.1 Postgastric surgery syndromes; F43.10 Post-traumatic stress disorder, unspecified; K21.9 Gastro-esophageal reflux disease without esophagitis; E78.5 Hyperlipidemia, unspecified; Z98.84 Bariatric surgery status; Z90.3 Acquired absence of stomach [part of]; Z90.710 Acquired absence of both cervix and uterus; Z90.721 Acquired absence of ovaries, unilateral; Z83.3 Family history of diabetes mellitus; Z82.49 Family history of ischemic heart disease and other diseases of the circulatory system; Z82.3 Family history of stroke

== ENCOUNTER 2017-05-29 18:33 | Inpatient (IN) | payer OTHER ==
[~2017-05-29] VITALS: Ht 157.5 cm; Wt 98.2 kg
[~2017-05-29 18:33] MED LIST changes: +ABL/15 PO; -ARIP1TAB8 PO; +CLON0.1T12 PO; -NF656 TD; -POLY150C4 PO; +SERT1TAB68 PO; -SERT50TA PO
[2017-05-29 18:43] VITALS: O2SAT 96
--- NOTE | 2017-05-29 18:50 | EMERGENCY ROOM VISIT NOTE ---
History Report prepared by Jacqueline: Reynaldo Apodaca Under the Supervision of: Dr. Isaac Berry M.D. First contact with patient: 18:35 Chief Complaint: OVERDOSE (INTENTIONAL) Stated Complaint: OVERDOSE History of Present Illness The patient is a 41 year old female who presents to the Emergency Room with complaints of a sudden overdose that began an hour and a half ago. The patient states that she is going through a custody siddiqui. She reports that she recently found out she is going to be registered as a child abuser. The patient states that this "pushed me over the edge", which caused her to take any pill that was on the counter. She states that she took 24 pills, including zolpidem, Topiramate, lorazepam, and Mirtazapine. The patient reports that following taking the pills, she became lethargic. The patient denies drinking alcohol today and a possible . Source of History: patient Onset: an hour and a half ago Position: other (global) Quality: other (overdose) Timing: other (sudden) Associated Symptoms: + fatigue Review of Systems See HPI for pertinent positives & negatives. A total of 10 systems reviewed and were otherwise negative. 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 (15) PTSD (16) Tubal ligation evaluation Surgical Problems: (1) excessive skin removal (2) gastric revision procedure with gastric bypass (3) H/O colonoscopy (4) H/O esophagogastroduodenoscopy (5) H/O exploratory laparotomy (6) H/O gastric bypass (7) H/O ventral hernia repair (8) H/O wisdom tooth extraction (9) lysis of adhesions (10) S/P cholecystectomy (11) S/P endometrial ablation (12) S/P laparoscopic hysterectomy (13) S/P panniculectomy (14) S/P partial gastrectomy (15) Status post unilateral salpingo-oophorectomy (16) wedge biopsy liver Social History Problems: (1) Gastroesophageal reflux disease (2) Hyperlipidemia Family History Cancer MOTHER (lung) Diabetes mellitus FATHER FH: gallbladder disease FH: lung disease FHx: heart disease FATHER Hypertension MOTHER Stroke FATHER Social History Smoking Status: Never Smoker Alcohol Use: none Drug Use: none Marital Status: , in relationship Housing Status: lives with significant other Occupation Status: employed Current/Historical Medications Scheduled Aripiprazole (Abilify), 15 MG PO HS Clonidine Hcl (Catapres), 0.4 MG PO BID Cyanocobalamin (Cyanocobalamin), 1,000 MCG IM Q3 MONTHS Fluticasone Propionate (Flovent Hfa), 2 PUFFS INH BID Fosaprepitant Dimeglumine (Emend), 75 MG IV WK Gabapentin (Neurontin), 300 MG PO BID Lisinopril (Zestril), 10 MG PO DAILY Mirtazapine (Remeron), 15 MG PO HS Pediatric Multiple Vitamin W/ (Flintstones Gummies), 1 TAB PO BID Potassium Chloride Microencaps (Potassium Chloride Er), 20 MEQ PO DAILY Sertraline Hcl (Zoloft), 100 MG PO DAILY Sodium Chloride (Gu Irrigant) (Sodium Chloride), 250 ML IV WK Topiramate (Topamax), 100 MG PO BID Zolpidem Tartrate (Zolpidem Tartrate), 10 MG PO HS Scheduled PRN Acetaminophen (Tylenol), 1,000 MG PO Q6H PRN for Pain Albuterol Sulfate (Proventil Hfa), 2 PUFFS INH Q4H PRN for SOB/Wheezing Lorazepam (Ativan), 1 MG PO TID PRN for Anxiety Ondansetron (Ondansetron Odt), 8 MG PO Q8 PRN for Nausea Rizatriptan Benzoate (Maxalt), 10 MG PO UD PRN for Migraine Triamcinolone Acet (Aristocort 0.1%), 1 APPLN TOP BID PRN for Itching Valacyclovir (Valtrex), 500 MG PO BID PRN for Outbreaks Allergies Coded Allergies: Morphine (Verified Allergy, Severe, TONGUE SWELLING, difficulty breathing/ wheezing, 05/29/17) tolerates hydromorphone Colestipol (Verified Allergy, Intermediate, red rash (no itching), 05/29/17 ) Cat Dander (Verified Allergy, Unknown, ITCHY WATERY EYES , 05/29/17) NUTS (Verified Allergy, Unknown, skin test showed nut allergy, 05/29/17) per pt, eats peanuts without issue Scopolamine (Verified Adverse Reaction, Severe, Seizure, 05/29/17) SEIZURES ONLY WHEN COMBINED W/ WELLBUTRIN. Promethazine (Verified Adverse Reaction, Intermediate, "CAN'T SIT STILL", 05/29/17) Bupropion (Verified Adverse Reaction, Unknown, Seizure, 05/29/17) SEIZURES WHEN WELLBUTRIN IS COMBINED W/ SCOPALAMINE. Physical Exam Vital Signs Date Time Temp Pulse Resp B/P (MAP) Pulse Ox O2 Delivery O2 Flow Rate FiO2 05/29/17 23:22 68 95 Room Air 05/29/17 20:50 74 98 Room Air 05/29/17 19:29 80 05/29/17 18:43 36.8 85 18 176/105 99 Room Air 05/29/17 18:43 96 Room Air Physical Exam GENERAL: Patient is a healthy-appearing well-nourished 41 year old female. HEAD: Normocephalic atraumatic EYES: Ocular movements intact pupils equal and react to light OROPHARYNX mucous membranes are moist no exudates present no erythema or edema present NECK: Supple no nuchal rigidity CHEST: Good equal expansion LUNGS: Clear and equal to auscultation CARDIAC: Normal S1 and S2 ABDOMEN: Soft nontender no guarding BACK: No CVA tenderness EXTREMITIES: No pain upon palpation normal muscle strength in all groups no clubbing cyanosis or edema NEURO: Patient is following commands and answering questions appropriately. Alert and oriented x3 Cranial Nerves 2-12 grossly intact Medical Decision & Procedures Laboratory Results 05/29/17 19:25 Red Blood Count 4.01, Mean Corpuscular Volume 77.1, Mean Corpuscular Hemoglobin 22.7, Mean Corpuscular Hemoglobin Concent 29.4, Mean Platelet Volume 9.6, Neutrophils (%) (Auto) 63.8, Lymphocytes (%) (Auto) 25.3, Monocytes (%) (Auto) 9.2, Eosinophils (%) (Auto) 1.3, Basophils (%) (Auto) 0.2, Neutrophils # (Auto) 3.54, Lymphocytes # (Auto) 1.40, Monocytes # (Auto) 0.51, Eosinophils # (Auto) 0.07, Basophils # (Auto) 0.01 05/29/17 19:25 Test 05/29/17 18:40 05/29/17 19:04 05/29/17 19:24 05/29/17 19:25 Urine Opiates Screen NEG (NEG) Urine Methadone, Qualitative NEG (NEG) Urine Barbiturates NEG (NEG) Urine Phencyclidine (PCP) Level NEG (NEG) Ur Amphetamine/Methamphetamine NEG (NEG) MDMA (Ecstasy) Screen NEG (NEG) Urine Benzodiazepines Screen NEG (NEG) Urine Cocaine Metabolite NEG (NEG) Urine Marijuana (THC) NEG (NEG) Urine Color YELLOW Urine Appearance CLEAR (CLEAR) Urine pH 7.0 (4.5-7.5) Urine Specific [place] 1.009 (1.000-1.030) Urine Protein NEG (NEG) Urine Glucose (UA) NEG (NEG) Urine Ketones NEG (NEG) Urine Occult Blood NEG (NEG) Urine Nitrite NEG (NEG) Urine Bilirubin NEG (NEG) Urine Urobilinogen NEG (NEG) Urine Leukocyte Esterase NEG (NEG) Urine Test NEG (NEG) Prothrombin Time 10.9 SECONDS (9.0-12.0) Prothromb Time International Ratio 1.0 (0.9-1.1) Activated Partial Thromboplast Time 24.7 SECONDS (21.0-31.0) Partial Thromboplastin Ratio 1.0 Salicylates Level < 1.7 mg/dl (2.8-20) Acetaminophen Level < 2 ug/ml (10-30) White Blood Count 5.54 K/uL (4.8-10.8) Red Blood Count 4.01 M/uL (4.2-5.4) Hemoglobin 9.1 g/dL (12.0-16.0) Hematocrit 30.9 % (37-47) Mean Corpuscular Volume 77.1 fL (80-100) Mean Corpuscular Hemoglobin 22.7 pg (25-34) Mean Corpuscular Hemoglobin Concent 29.4 g/dl (32-36) Platelet Count 239 K/uL (130-400) Mean Platelet Volume 9.6 fL (7.4-10.4) Neutrophils (%) (Auto) 63.8 % Lymphocytes (%) (Auto) 25.3 % Monocytes (%) (Auto) 9.2 % Eosinophils (%) (Auto) 1.3 % Basophils (%) (Auto) 0.2 % Neutrophils # (Auto) 3.54 K/uL (1.4-6.5) Lymphocytes # (Auto) 1.40 K/uL (1.2-3.4) Monocytes # (Auto) 0.51 K/uL (0.11-0.59) Eosinophils # (Auto) 0.07 K/uL (0-0.5) Basophils # (Auto) 0.01 K/uL (0-0.2) RDW Standard Deviation 51.8 fL (36.4-46.3) RDW Coefficient of Variation 18.2 % (11.5-14.5) Immature Granulocyte % (Auto) 0.2 % Immature Granulocyte # (Auto) 0.01 K/uL (0.00-0.02) Anion Gap 9.0 mmol/L (3-11) Est Creatinine Clear Calc Drug Dose 104.2 ml/min Estimated GFR () 110.4 Estimated GFR (Non- 95.2 BUN/Creatinine Ratio 16.1 (10-20) Calcium Level 8.4 mg/dl (8.5-10.1) Total Bilirubin 0.3 mg/dl (0.2-1) Direct Bilirubin < 0.1 mg/dl (0-0.2) Aspartate Amino Transf (AST/SGOT) 15 U/L (15-37) Alanine Aminotransferase (ALT/SGPT) 22 U/L (12-78) Alkaline Phosphatase 129 U/L (45-117) Total Creatine Kinase 52 U/L (26-192) Total Protein 7.0 gm/dl (6.4-8.2) Albumin 3.3 gm/dl (3.4-5.0) Lipase 176 U/L (73-393) Ethyl Alcohol mg/dL < 3.0 mg/dl (0-3) Labs reviewed by ED physician. Medications Administered Medications (Trade) Dose Ordered Sig/Rigo Route Start Time Stop Time Status Last Admin Dose Admin Potassium Chloride (Klor-Con M10) 40 meq NOW STAT PO 05/29/17 20:03 05/29/17 20:04 DC 05/29/17 20:14 40 MEQ ECG Indication: other (overdose) Rate (beats per minute): 79 Rhythm: normal sinus Findings: no acute ischemic change, no ectopy ED Course 1836: Past medical records reviewed. The patient was evaluated in room C09. A complete history and physical examination was performed. 1854: I discussed the patients case with poison control who suggests to just observe the patient. 2002: Ordered Potassium Chloride 40 meq PO. 2008: I discussed the patients case with case management and he is going to see her. The patient is medically cleared. 2229: The patient was signed out to Dr. Arce. Medical Decision The differential diagnosis includes etiologies such as toxicologic, infection, hypoglycemia, electrolyte abnormalities, cardiac sources, intracerebral event, neurologic, as well as others were entertained. This is a 41-year-old female who presents emergency department complaining of multiple drug overdose. I did discuss the patient's case with poison control who recommended supportive care. The patient was observed for 5 hours in the emergency department and was felt to be medically clear his she is sitting upright was able to hold entire conversation. She is watching TV. I then did again discuss the case with poison control. The patient has a normal Tylenol level alcohol level as well as salicylate level. I did discuss the case with case management who agreed to evaluate the patient. The patient was signed out to Dr. Mcneill at change of shift, pending mental health evaluation Medication Reconcilliation Current Medication List: was personally reviewed by me Blood Pressure Screening Patient's blood pressure: Elevated blood pressure Blood pressure disposition: Elevated BP felt to be situational Consults Time Called: 1854 Consulting Physician: Poison Control Returned Call: 1854 I discussed the patients case with poison control who suggests to just observe the patient. Additional Consults: Time Called: 2008 Consulted Physician: case management Returned Call: 2008 Additional Comments: I discussed the patients case with case management and he is going to see her. The patient is medically cleared. Impression Primary Impression: Mood disorder Additional Impression: Drug overdose, multiple drugs Scribe Attestation The scribe's documentation has been prepared under my direction and personally reviewed by me in its entirety. I confirm that the note above accurately reflects all work, treatment, procedures, and medical decision making performed by me. Departure Information Dispostion Still a Patient Referrals Marivel Harrell MD (PCP) Patient Instructions My [facility] Problem Qualifiers Additional Impression: Drug overdose, multiple drugs Encounter type: initial encounter Injury intent: intentional self-harm Qualified Codes: T50.902A - Poisoning by unspecified drugs, medicaments and biological substances, intentional self-harm, initial encounter
[2017-05-29 19:17] LABS: PREG INTERNAL NEGATIVE QC NEG CLEAR BACKGROUND; PREG INTERNAL POSITIVE QC POS CONTROL LINE
[2017-05-29 19:21] LABS: URINE APPEARANCE CLEAR (CLEAR); URINE BILIRUBIN NEG (NEG); URINE COLOR YELLOW; URINE NITRITE NEG (NEG); URINE SPECIFIC GRAVITY 1.009 (1.000-1.030); UROBILINOGEN NEG (NEG)
[2017-05-29 19:22] LABS: MANUAL MICROSCOPIC REQUIRED? NO; REVIEW REQ? NO
[2017-05-29 19:28] LABS: BENZODIAZEPINE, URINE NEG (NEG); COCAINE,URINE NEG (NEG); PHENCYCLIDINE, URINE NEG (NEG)
[2017-05-29 19:35] LABS: BASO % 0.2 %; BASO ABS # 0.01 K/uL (0-0.2); COMPLETE YES; EOS % 1.3 %; HEMATOCRIT 30.9 % (37-47); IG% 0.2 %; LYMPH % 25.3 %; MEAN CELL VOLUME 77.1 fL (80-100); MEAN CORPUSCULAR HEMOGLOBIN 22.7 pg (25-34); MEAN CORPUSCULAR HGB CONC 29.4 g/dl (32-36); MEAN PLATELET VOLUME 9.6 fL (7.4-10.4); MONO % 9.2 %; NEUT % 63.8 %; PLATELET COUNT 239 K/uL (130-400); RED BLOOD COUNT 4.01 M/uL (4.2-5.4); WHITE BLOOD COUNT 5.54 K/uL (4.8-10.8)
[2017-05-29 19:46] LABS: PROTHROMBIN TIME (PATIENT) 10.9 SECONDS (9.0-12.0)
[2017-05-29 19:53] LABS: ALT/SGPT 22 U/L (12-78); BLOOD UREA NITROGEN 12 mg/dl (7-18); BUN/CREATININE RATIO 16.1 (10-20); CALCIUM 8.4 mg/dl (8.5-10.1); CARBON DIOXIDE 22 mmol/L (21-32); CHLORIDE 112 mmol/L (98-107); CREATININE 0.77 mg/dl (0.60-1.20); GLUCOSE 86 mg/dl (70-99); POTASSIUM 3.3 mmol/L (3.5-5.1); SODIUM 143 mmol/L (136-145)
[2017-05-29 19:56] LABS: ALKALINE PHOSPHATASE 129 U/L (45-117); AST/SGOT 15 U/L (15-37)
[2017-05-29] MEDS ORDERED: POTASSIUM CHLORIDE 10 MEQ TABCR PO STA (20:03)
[2017-05-29 20:37] LABS: ACETAMINOPHEN < 2 ug/ml (10-30)
[2017-05-30] MEDS ORDERED: CLONIDINE HCL 0.1 MG TAB PO ONE (01:15)
--- NOTE | 2017-05-30 03:01 | EMERGENCY ROOM VISIT NOTE ---
ED Visit Note First contact with patient: 00:40 pt with OD; stable; asking for home meds; awaiting placement; no issues Problem List Medical Problems: (1) a-port placement Status: Chronic (2) Agoraphobia Status: Chronic (3) Asthma Status: Chronic (4) Bipolar I disorder Status: Chronic (5) Chronic anemia Status: Chronic (6) H/O drug abuse Permanent Comment: heroin, alcohol Status: Chronic (7) History of esophageal dilatation Permanent Comment: 2009 Status: Chronic (8) Polycystic kidney disease, adult type Status: Chronic (9) Postgastric surgery syndrome Status: Chronic (10) PTSD Status: Chronic (11) Tubal ligation evaluation Status: Chronic Surgical Problems: (1) excessive skin removal Status: Chronic (2) gastric revision procedure with gastric bypass Permanent Comment: 2008 Status: Chronic (3) H/O colonoscopy Status: Chronic (4) H/O esophagogastroduodenoscopy Status: Chronic (5) H/O exploratory laparotomy Permanent Comment: 2009, 2010, 2012 Status: Chronic (6) H/O gastric bypass Status: Chronic (7) H/O ventral hernia repair Status: Chronic (8) H/O wisdom tooth extraction Status: Chronic (9) lysis of adhesions Status: Chronic (10) S/P cholecystectomy Status: Chronic (11) S/P endometrial ablation Status: Chronic (12) S/P panniculectomy Permanent Comment: 2010 Status: Chronic (13) S/P partial gastrectomy Status: Chronic (14) wedge biopsy liver Permanent Comment: 2012 Status: Chronic Social History Problems: (1) Gastroesophageal reflux disease Status: Chronic (2) Hyperlipidemia Status: Chronic Current/Historical Medications Scheduled Aripiprazole (Abilify), 15 MG PO HS Clonidine Hcl (Catapres), 0.4 MG PO BID Cyanocobalamin (Cyanocobalamin), 1,000 MCG IM Q3 MONTHS Fluticasone Propionate (Flovent Hfa), 2 PUFFS INH BID Fosaprepitant Dimeglumine (Emend), 75 MG IV WK Gabapentin (Neurontin), 300 MG PO BID Lisinopril (Zestril), 10 MG PO DAILY Mirtazapine (Remeron), 15 MG PO HS Pediatric Multiple Vitamin W/ (Flintstones Gummies), 1 TAB PO BID Potassium Chloride Microencaps (Potassium Chloride Er), 20 MEQ PO DAILY Sertraline Hcl (Zoloft), 100 MG PO DAILY Sodium Chloride (Gu Irrigant) (Sodium Chloride), 250 ML IV WK Topiramate (Topamax), 100 MG PO BID Zolpidem Tartrate (Zolpidem Tartrate), 10 MG PO HS Scheduled PRN Acetaminophen (Tylenol), 1,000 MG PO Q6H PRN for Pain Albuterol Sulfate (Proventil Hfa), 2 PUFFS INH Q4H PRN for SOB/Wheezing Lorazepam (Ativan), 1 MG PO TID PRN for Anxiety Ondansetron (Ondansetron Odt), 8 MG PO Q8 PRN for Nausea Rizatriptan Benzoate (Maxalt), 10 MG PO UD PRN for Migraine Triamcinolone Acet (Aristocort 0.1%), 1 APPLN TOP BID PRN for Itching Valacyclovir (Valtrex), 500 MG PO BID PRN for Outbreaks Allergies Coded Allergies: Morphine (Verified Allergy, Severe, TONGUE SWELLING, difficulty breathing/ wheezing, 05/29/17) tolerates hydromorphone Colestipol (Verified Allergy, Intermediate, red rash (no itching), 05/29/17 ) Cat Dander (Verified Allergy, Unknown, ITCHY WATERY EYES , 05/29/17) NUTS (Verified Allergy, Unknown, skin test showed nut allergy, 05/29/17) per pt, eats peanuts without issue Scopolamine (Verified Adverse Reaction, Severe, Seizure, 05/29/17) SEIZURES ONLY WHEN COMBINED W/ WELLBUTRIN. Promethazine (Verified Adverse Reaction, Intermediate, "CAN'T SIT STILL", 05/29/17) Bupropion (Verified Adverse Reaction, Unknown, Seizure, 05/29/17) SEIZURES WHEN WELLBUTRIN IS COMBINED W/ SCOPALAMINE. Vital Signs Date Time Temp Pulse Resp B/P (MAP) Pulse Ox O2 Delivery O2 Flow Rate FiO2 05/30/17 01:10 67 22 163/106 97 Room Air 05/29/17 23:22 68 95 Room Air 05/29/17 20:50 74 98 Room Air 05/29/17 19:29 80 05/29/17 18:43 36.8 85 18 176/105 99 Room Air 05/29/17 18:43 96 Room Air Laboratory Results 05/29/17 19:25 Red Blood Count 4.01, Mean Corpuscular Volume 77.1, Mean Corpuscular Hemoglobin 22.7, Mean Corpuscular Hemoglobin Concent 29.4, Mean Platelet Volume 9.6, Neutrophils (%) (Auto) 63.8, Lymphocytes (%) (Auto) 25.3, Monocytes (%) (Auto) 9.2, Eosinophils (%) (Auto) 1.3, Basophils (%) (Auto) 0.2, Neutrophils # (Auto) 3.54, Lymphocytes # (Auto) 1.40, Monocytes # (Auto) 0.51, Eosinophils # (Auto) 0.07, Basophils # (Auto) 0.01 05/29/17 19:25 Test 05/29/17 18:40 05/29/17 19:04 05/29/17 19:24 05/29/17 19:25 Urine Opiates Screen NEG (NEG) Urine Methadone, Qualitative NEG (NEG) Urine Barbiturates NEG (NEG) Urine Phencyclidine (PCP) Level NEG (NEG) Ur Amphetamine/Methamphetamine NEG (NEG) MDMA (Ecstasy) Screen NEG (NEG) Urine Benzodiazepines Screen NEG (NEG) Urine Cocaine Metabolite NEG (NEG) Urine Marijuana (THC) NEG (NEG) Urine Color YELLOW Urine Appearance CLEAR (CLEAR) Urine pH 7.0 (4.5-7.5) Urine Specific [place] 1.009 (1.000-1.030) Urine Protein NEG (NEG) Urine Glucose (UA) NEG (NEG) Urine Ketones NEG (NEG) Urine Occult Blood NEG (NEG) Urine Nitrite NEG (NEG) Urine Bilirubin NEG (NEG) Urine Urobilinogen NEG (NEG) Urine Leukocyte Esterase NEG (NEG) Urine Test NEG (NEG) Prothrombin Time 10.9 SECONDS (9.0-12.0) Prothromb Time International Ratio 1.0 (0.9-1.1) Activated Partial Thromboplast Time 24.7 SECONDS (21.0-31.0) Partial Thromboplastin Ratio 1.0 Salicylates Level < 1.7 mg/dl (2.8-20) Acetaminophen Level < 2 ug/ml (10-30) White Blood Count 5.54 K/uL (4.8-10.8) Red Blood Count 4.01 M/uL (4.2-5.4) Hemoglobin 9.1 g/dL (12.0-16.0) Hematocrit 30.9 % (37-47) Mean Corpuscular Volume 77.1 fL (80-100) Mean Corpuscular Hemoglobin 22.7 pg (25-34) Mean Corpuscular Hemoglobin Concent 29.4 g/dl (32-36) Platelet Count 239 K/uL (130-400) Mean Platelet Volume 9.6 fL (7.4-10.4) Neutrophils (%) (Auto) 63.8 % Lymphocytes (%) (Auto) 25.3 % Monocytes (%) (Auto) 9.2 % Eosinophils (%) (Auto) 1.3 % Basophils (%) (Auto) 0.2 % Neutrophils # (Auto) 3.54 K/uL (1.4-6.5) Lymphocytes # (Auto) 1.40 K/uL (1.2-3.4) Monocytes # (Auto) 0.51 K/uL (0.11-0.59) Eosinophils # (Auto) 0.07 K/uL (0-0.5) Basophils # (Auto) 0.01 K/uL (0-0.2) RDW Standard Deviation 51.8 fL (36.4-46.3) RDW Coefficient of Variation 18.2 % (11.5-14.5) Immature Granulocyte % (Auto) 0.2 % Immature Granulocyte # (Auto) 0.01 K/uL (0.00-0.02) Anion Gap 9.0 mmol/L (3-11) Est Creatinine Clear Calc Drug Dose 104.2 ml/min Estimated GFR () 110.4 Estimated GFR (Non- 95.2 BUN/Creatinine Ratio 16.1 (10-20) Calcium Level 8.4 mg/dl (8.5-10.1) Total Bilirubin 0.3 mg/dl (0.2-1) Direct Bilirubin < 0.1 mg/dl (0-0.2) Aspartate Amino Transf (AST/SGOT) 15 U/L (15-37) Alanine Aminotransferase (ALT/SGPT) 22 U/L (12-78) Alkaline Phosphatase 129 U/L (45-117) Total Creatine Kinase 52 U/L (26-192) Total Protein 7.0 gm/dl (6.4-8.2) Albumin 3.3 gm/dl (3.4-5.0) Lipase 176 U/L (73-393) Ethyl Alcohol mg/dL < 3.0 mg/dl (0-3) Test 05/29/17 20:05 Bedside Glucose 85 mg/dl (70-90) Medications Administered Medications (Trade) Dose Ordered Sig/Rigo Route Start Time Stop Time Status Last Admin Dose Admin Potassium Chloride (Klor-Con M10) 40 meq NOW STAT PO 05/29/17 20:03 05/29/17 20:04 DC 05/29/17 20:14 40 MEQ Aripiprazole (Abilify Tab) 15 mg QAM PO 05/30/17 09:00 06/29/17 08:59 05/30/17 01:30 15 MG Clonidine HCl (Catapres Tab) 0.1 mg NOW ONCE PO 05/30/17 01:15 05/30/17 01:16 DC 05/30/17 01:29 0.1 MG Lisinopril (Zestril Tab) 10 mg QAM PO 05/30/17 09:00 06/29/17 08:59 05/30/17 01:31 10 MG Departure Information Dispostion Still a Patient Referrals Marivel Harrell MD (PCP) Patient Instructions [facility]
[2017-05-30] MEDS ORDERED: LISINOPRIL 10 MG TAB PO SCH (09:00)
[2017-05-30] MEDS ORDERED: ARIPIprazole TAB 15 MG TAB PO SCH (09:00)
[2017-05-30] MEDS ORDERED: SERTRALINE HCL 100 MG TAB PO STA (17:16)
[2017-05-30] MEDS ORDERED: TOPIRAMATE 100 MG TAB PO STA (17:16)
[2017-05-30] MEDS ORDERED: GABAPENTIN 250 MG/5 ML 470 ML BTL PO STA ×2 (17:16→17:24)
[2017-05-30] MEDS ORDERED: CLONIDINE HCL 0.1 MG TAB PO STA (17:16)
[2017-05-30] MEDS ORDERED: LORAZEPAM 1 MG TAB SL STA (17:16)
[2017-05-30 17:36] VITALS: O2SAT 98
[2017-05-30] MEDS ORDERED: LISINOPRIL 10 MG TAB PO STA (17:42)
[2017-05-30] MEDS ORDERED: NURSING VERBAL MED ORDER ONE (17:45)
[2017-05-30] MEDS ORDERED: RIZATRIPTAN BENZOATE 10 MG TAB PO PRN (18:45)
[2017-05-30 19:11] VITALS: BP 147/93; PULSE 78; TEMP 36.8; Ht 157.5 cm; Wt 98.2 kg
[2017-05-30] MEDS ORDERED: ALUMINUM/MAGNESIUM SUSP 30 ML UDC PO PRN (19:15)
[2017-05-30] MEDS ORDERED: ACETAMINOPHEN 325 MG TAB PO PRN (19:15)
[2017-05-30] MEDS ORDERED: MAGNESIUM HYDROXIDE SUSP 30 ML UDC PO PRN (19:15)
[2017-05-30] MEDS ORDERED: SODIUM CHLORIDE 0.65% NA SOLN 45 ML (OCEAN) PRN (19:15)
[2017-05-30] MEDS ORDERED: hydrOXYzine HCL 25 MG TAB PO PRN (19:15)
[2017-05-30] MEDS ORDERED: ALBUTEROL HFA 8 GM INHALER INH PRN (19:15)
[2017-05-30] MEDS ORDERED: TRIAMCINOLONE ACET 0.1% CR 15 GM TUBE EXT PRN (19:15)
[2017-05-30] MEDS ORDERED: BISMUTH SUBSALICYLATE PER ML OMNICELL CHARGE PO PRN (19:15)
[2017-05-30] MEDS ORDERED: CLONIDINE HCL 0.1 MG TAB PO SCH (21:00)
[2017-05-30] MEDS: ZOLPIDEM TARTRATE 10 MG TAB PO SCH (21:20)
[2017-05-30] MEDS: ARIPIprazole TAB 15 MG TAB PO SCH (21:21)
[2017-05-30] MEDS: MIRTAZAPINE TAB 15 MG TAB PO SCH (21:22)
[2017-05-30] MEDS: TOPIRAMATE 100 MG TAB PO SCH (21:23)
[2017-05-30] MEDS: GABAPENTIN 300 MG CAP PO SCH (21:25)
[2017-05-30] MEDS: FLUTICASONE HFA 110MCG INHALER INH SCH (21:25)
[2017-05-30 21:36] VITALS: PULSE 141
[2017-05-30] MEDS: CLONIDINE HCL 0.1 MG TAB PO SCH (21:36)
[2017-05-30 21:37] VITALS: BP 141/90; PULSE 73
[2017-05-31] MEDS: ACETAMINOPHEN 500 MG TAB PO PRN (04:27)
[2017-05-31 06:54] VITALS: BP_SYST 127; BP_SYST 136; BP_DIAS 84; BP_DIAS 97; PULSE 57; PULSE 62; TEMP 36.4
[2017-05-31] MEDS: CLONIDINE HCL 0.1 MG TAB PO SCH ×2 (09:17→22:02)
[2017-05-31] MEDS: GABAPENTIN 300 MG CAP PO SCH ×2 (09:17→22:00)
[2017-05-31] MEDS: SERTRALINE HCL 100 MG TAB PO SCH (09:17)
[2017-05-31] MEDS: LISINOPRIL 10 MG TAB PO SCH (09:17)
[2017-05-31] MEDS: TOPIRAMATE 100 MG TAB PO SCH ×2 (09:17→22:00)
[2017-05-31] MEDS: FLUTICASONE HFA 110MCG INHALER INH SCH ×2 (09:19→22:03)
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
[2017-05-31] MEDS: LORAZEPAM 1 MG TAB PO PRN ×2 (11:26→16:13)
[2017-05-31] MEDS: ONDANSETRON 8MG OD TAB PO PRN (16:14)
[2017-05-31] MEDS: ZOLPIDEM TARTRATE 10 MG TAB PO SCH (21:59)
[2017-05-31] MEDS: MIRTAZAPINE TAB 15 MG TAB PO SCH (22:00)
[2017-05-31] MEDS: ARIPIprazole TAB 15 MG TAB PO SCH (22:01)
[2017-05-31 22:05] VITALS: BP 151/88; PULSE 58
[2017-06-01] MEDS: LORAZEPAM 1 MG TAB PO PRN ×2 (05:02→12:38)
[2017-06-01 06:37] VITALS: BP_SYST 129; BP_SYST 138; BP_DIAS 85; BP_DIAS 89; PULSE 67; TEMP 36.4
[2017-06-01] MEDS: FLUTICASONE HFA 110MCG INHALER INH SCH ×2 (08:11→21:25)
[2017-06-01] MEDS: TOPIRAMATE 100 MG TAB PO SCH ×2 (08:11→21:28)
[2017-06-01] MEDS: CLONIDINE HCL 0.1 MG TAB PO SCH ×2 (08:11→21:30)
[2017-06-01] MEDS: GABAPENTIN 300 MG CAP PO SCH ×2 (08:11→21:27)
[2017-06-01] MEDS: LISINOPRIL 10 MG TAB PO SCH (08:12)
[2017-06-01] MEDS: SERTRALINE HCL 100 MG TAB PO SCH (08:12)
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
[2017-06-01 09:45] LABS: CHOLESTEROL/HDL RATIO 3.1
[2017-06-01] MEDS: ONDANSETRON 8MG OD TAB PO PRN ×2 (13:16→13:25)
[2017-06-01] MEDS: hydrOXYzine HCL 25 MG TAB PO PRN (19:07)
[2017-06-01] MEDS: ARIPIprazole TAB 15 MG TAB PO SCH (21:26)
[2017-06-01] MEDS: ZOLPIDEM TARTRATE 10 MG TAB PO SCH (21:26)
[2017-06-01] MEDS: MIRTAZAPINE TAB 15 MG TAB PO SCH (21:28)
[2017-06-02] MEDS: ACETAMINOPHEN 500 MG TAB PO PRN (02:36)
[2017-06-02 06:33] VITALS: BP_SYST 124; BP_SYST 128; BP_DIAS 84; PULSE 62; PULSE 66; TEMP 36.4
[2017-06-02 08:04] VITALS: BP 121/85; PULSE 63
[2017-06-02] MEDS: FLUTICASONE HFA 110MCG INHALER INH SCH ×2 (08:05→21:36)
[2017-06-02] MEDS: TOPIRAMATE 100 MG TAB PO SCH ×2 (08:06→21:37)
[2017-06-02] MEDS: GABAPENTIN 300 MG CAP PO SCH ×2 (08:06→21:37)
[2017-06-02] MEDS: CLONIDINE HCL 0.1 MG TAB PO SCH ×2 (08:06→21:43)
[2017-06-02] MEDS: SERTRALINE HCL 100 MG TAB PO SCH (08:06)
[2017-06-02] MEDS: LISINOPRIL 10 MG TAB PO SCH (08:06)
[2017-06-02] MEDS: LORAZEPAM 1 MG TAB PO PRN (11:10)
--- NOTE | 2017-06-02 13:25 | Psychiatric Progress Notes ---
Progress Note Date of Service Jun 02, 2017. Interval History Jamaica Harris is a 41-year-old female who currently lives in [place], has a history of bipolar disorder type I, substance abuse, and borderline personality traits and was admitted voluntarily after presenting to the emergency room status post intentional overdose on multiple prescription medications in the context of psychosocial stressors. Chief Complaint "I have a list of things I want to do". Subjective Patient was seen & assessed interval progress reviewed with Treatment Team. Attending groups. Agreeable to restart [employer] activities several afternoons a week and possibly join a gym so that "I don't get lost in my head". Phone session with boyfriend this pm where will discuss securing weapons. She required prn Ativan after speaking with in laws on phone and found it helpful. Review of Systems Psych: denies symptoms other than stated above Constitutional: denied Cardiovascular: denied GI: denied Neurologic: denied Remainder of 10 body systems also reviewed and denied other than noted above. Sleep Information Total Hours of Sleep: 6.50 Meal Information Percent of Breakfast Consumed: 90 Percent of Lunch Consumed: 100 Percent of Dinner Consumed: 80 Mental Status Exam During interview pt is: alert and oriented, cooperative Appearance: appropriately dressed, appropriately groomed, appeared stated age Eye contact is: good Motor behavior is: steady gait & station, no abnormal motor movements Speech: normal in rate, rhythm & volume Affect: mood congruent, depressed, anxious, constricted Mood is: depressed, anxious Thought process: goal directed Thought content: reality based without delusions Suicidal thought are: denied (can contract for safety here in the hospital, but not outside) Homicidal thoughts are: denied Hallucinations: denies auditory, denies visual Cognition: memory grossly intact, attention grossly intact, language grossly intact Intelligence estimated to be: consistent with level of education Insight: fair Judgement: fair Impression 41-year-old white female with a history of bipolar disorder type I, borderline personality traits, PTSD, and polysubstance abuse who presents after an intentional polysubstance overdose in the context of psychosocial stressors. She is in a prolonged custody siddiqui with her daughter's paternal grandparents , and was recently informed that she will have to register as a sex offender, which she thinks will negatively affect her receiving custody. She took the overdose impulsively after receiving this news, and also has access to a gun in the home. Care was coordinated with her outpatient psychiatrist, and for now we are not making any medication changes, but instead are working on coping skills and how to manage her current stressors. She'll need a family meeting with her boyfriend with specific emphasis on safety planning and securing the gun and medications at home prior to discharge. She is also looking at ways to fill her days, and is considering a return to [facility]. Plan (1) Bipolar I disorder 05/31 -Reviewed case with Dr. Lee, who agrees with continuing current medications for now: Aripiprazole, sertraline, mirtazapine, and zolpidem. Patient has significant outpatient services, and we will need to coordinate care with her other providers. -Fasting labs ordered for tomorrow for monitoring on an atypical. -Recommend family meeting with her boyfriend, whom she lives with. -Attend groups and participate in unit programming, work on healthy coping skills and discharge safety plan. We'll need to ensure that the gun is secured prior to discharge, and would recommend that all of the medications be kept locked and secured, and dispensed to her daily to decrease the risk of impulsive overdose. 06/01 - Continue current medications, and focus on coping skills and discharge safety planning. - Patient fears that her boyfriend may not want to come in for a meeting, so it may be helpful for staff to contact him directly to schedule a time to talk. At the very least, he should be contacted to ensure that the gun and medications are secured prior to discharge. Ideally, all of her medications would be kept locked and dispensed to her daily given her overdose and access to multiple medications that can be lethal in overdose. - Patient is considering a return to [facility] to help her better structure her time at home, and encouraged her to do this. - Despite significant outpatient services, she did not follow her safety plan and overdosed after she was unable to reach her peers specialist in case making machine operator. She would benefit from reviewing and revising her discharge safety plan. 06/02--continue prn Ativan, attempt to clarify CYS actions, meeting with boyfriend around safety planning. (2) PTSD 05/31 -Patient reports worsening anxiety over the past couple of months in the context of her custody siddiqui. She is on clonidine for GI issues, which may also help with anxiety, and we will continue her current dose of sertraline for now, although we could consider increasing this, but would have to balance the risk of further destabilizing her mood. -Continue lorazepam 1 mg twice a day when necessary panic. Dr. Lee supports lowering this back to her previous dose of twice a day, and case was disinhibiting her and contributed to the impulsive overdose. (3) Obesity Encourage healthy diet, regular exercise, and weight loss. She is on Topamax for seizures, which may also help with this. (4) Hypertension Continue home dose of lisinopril (5) Postgastric surgery syndrome Continue ondansetron prn, multivitamin, potassium chloride, and weekly Emend infusion, to be given today in the [facility]. She will need to follow up with her home care associate, Dr. Bryant. (6) Opiate addiction Avoid controlled substances given her addictions history. (7) Asthma Continue Proventil and Flovent. (8) Headache Continue topiramate and Maxalt when necessary. Continue gabapentin, which she states is being prescribed for neuropathy which is a side effect of her topiramate. Discharge / Aftercare Planning Primary Care Physician: Name: Dr. Harrell Appointment Notes: As needed Psychiatrist: Name: Dr Lee [facility] Date of Appointment: Jun 08, 2017 Time of Appointment: 9:30am Therapist: Name: [facility] Date of Appointment: Jun 01, 2017 Syrup Filterer: Name: ETTA Bloom Date of Appointment: Jun 06, 2017 Time of Appointment: 11:00am Dispensing Optician: Name: Ranjeet Riddle Specialist: Name: Dr Bryant Date of Appointment: Oct 30, 2017 Time of Appointment: 9:00am Visit Code E&M Code: 01952 Inventory Assets Strengths: Supportive boyfriend, has significant outpatient services Risk Factors Assessment : Yes /single/: Yes Higher / Fall in social status: No Health problems: Yes Mental Health Diagnoses: Yes Substance use disorders: Yes Previous attempt: Yes Previous attempt;highly lethal: Yes Family history of suicide: No Previous psychiatric stay: Yes Hopelessness: No Smoker: No Protective Factors Assessment Advent beliefs: Yes : No Responsible for young children: Yes Employed: No Stable relationships: Yes Supportive family: No Good rapport with provider: Yes Data Vital Signs Last 24 Hrs: Date Time Temp Pulse Resp B/P (MAP) Pulse Ox O2 Delivery O2 Flow Rate FiO2 06/02/17 08:04 63 121/85 06/02/17 06:33 36.4 62 18 128/84 66 124/84
[2017-06-02] MEDS: ONDANSETRON 8MG OD TAB PO PRN (14:51)
--- NOTE | 2017-06-02 16:23 | Psychiatric Progress Notes ---
Psychiatric Progress Note Date of Service Jun 02, 2017. Notes staff report patient c/o abdominal pain, "like obstruction". Patient of Dr. Annette Ring GI. On chart review patient had normal abdominal US and Xray earlier this month. s/p Emend infusion for chronic issues related to s/p gastric bypass syndrome. Reviewed with staff that patient currently ordered regular diet, to confirm how much she is eating from tray and if dietary needs need changed, Protonix BID is recommended per phone consultation with Dr. Vega. No acute need for imaging if not vomiting. Dr. Bryant covering for service this weekend if additional questions/need for formal consultation. Patient with a history of heroin use, doesn't appear to be in any withdrawal, previously not med seeking.
[2017-06-02] MEDS: PANTOprazole SOD 40 MG TAB PO PRN (17:25)
[2017-06-02] MEDS: hydrOXYzine HCL 25 MG TAB PO PRN (21:35)
[2017-06-02] MEDS: ARIPIprazole TAB 15 MG TAB PO SCH (21:37)
[2017-06-02] MEDS: MIRTAZAPINE TAB 15 MG TAB PO SCH (21:37)
[2017-06-02] MEDS: ZOLPIDEM TARTRATE 10 MG TAB PO SCH (21:41)
[2017-06-02 21:45] VITALS: BP 143/89; PULSE 80
[2017-06-03] MEDS: LORAZEPAM 1 MG TAB PO PRN ×2 (03:52→16:45)
[2017-06-03] MEDS: ACETAMINOPHEN 500 MG TAB PO PRN ×2 (03:55→21:57)
[2017-06-03 06:58] VITALS: BP_SYST 131; BP_SYST 137; BP_DIAS 90; PULSE 56; PULSE 67; TEMP 36.4
[2017-06-03] MEDS: FLUTICASONE HFA 110MCG INHALER INH SCH ×2 (08:27→21:53)
[2017-06-03] MEDS: PANTOprazole SOD 40 MG TAB PO PRN (08:27)
[2017-06-03] MEDS: TOPIRAMATE 100 MG TAB PO SCH ×2 (08:28→21:54)
[2017-06-03] MEDS: GABAPENTIN 300 MG CAP PO SCH ×2 (08:28→21:54)
[2017-06-03] MEDS: SERTRALINE HCL 100 MG TAB PO SCH (08:28)
[2017-06-03] MEDS: LISINOPRIL 10 MG TAB PO SCH (08:31)
[2017-06-03] MEDS: CLONIDINE HCL 0.1 MG TAB PO SCH ×2 (08:32→21:54)
[2017-06-03 08:49] VITALS: BP 145/89; PULSE 79
[2017-06-03] MEDS: ONDANSETRON 8MG OD TAB PO PRN ×2 (09:08→18:01)
--- NOTE | 2017-06-03 14:11 | Psychiatric Progress Notes ---
Progress Note Date of Service Jun 03, 2017. Interval History Jamaica Harris is a 41-year-old female who currently lives in [place], has a history of bipolar disorder type I, substance abuse, and borderline personality traits and was admitted voluntarily after presenting to the emergency room status post intentional overdose on multiple prescription medications in the context of psychosocial stressors. Chief Complaint "I'm good, I feel I'm ready to go home". Subjective Patient was seen & assessed interval progress reviewed with Nursing. Pt was seen for interview along with Vangie Colorado PA-C. Pt enters room with notepad of "to-do" items she is hoping to accomplish. She has scheduled meetings with her metal die finisher in regard to the CYS case. She has also spoken with her current outpatient resources to add activities to her afternoon schedule. She voices plans to attend [employer], involve herself in a knitting/sewing club , and join [employer]. Pt reports she has had no SI since admission. Pt states her medications have continued to be effective. She continues to report epigastric pain for the past 2 days, worsening with meals. She states it feels "as if I'm wearing really tight clothing". She states she has been eating the same as at home in regard to portions. Protonix was order and pt denies relief with the two doses she has taken thus far. Review of Systems Psych: denies symptoms other than stated above Constitutional: denied Cardiovascular: denied GI: ongoing epigastric pain worsening with meals Neurologic: denied Remainder of 10 body systems also reviewed and denied other than noted above. Sleep Information Total Hours of Sleep: 6.25 Meal Information Percent of Breakfast Consumed: 100 Percent of Lunch Consumed: 90 Percent of Dinner Consumed: 80 Mental Status Exam During interview pt is: alert and oriented, cooperative Appearance: appropriately dressed, appeared stated age Eye contact is: good Motor behavior is: steady gait & station, no abnormal motor movements Speech: normal in rate, rhythm & volume Affect: mood congruent, euthymic, anxious Mood is: other (reports "good") Thought process: goal directed, linear, logical Thought content: reality based without delusions Suicidal thought are: denied Homicidal thoughts are: denied Hallucinations: denies auditory, denies visual Cognition: memory grossly intact, attention grossly intact, language grossly intact Intelligence estimated to be: average Insight: fair Judgement: fair Impression 41-year-old white female with a history of bipolar disorder type I, borderline personality traits, PTSD, and polysubstance abuse who presents after an intentional polysubstance overdose in the context of psychosocial stressors. She is in a prolonged custody siddiqui with her daughter's paternal grandparents , and was recently informed that she will have to register as a sex offender, which she thinks will negatively affect her receiving custody. Overdose was in response to this news. Pt has taken steps to approach issues with CYS and has scheduled appointments while inpatient. She continues to work on coping skills. Pt has scheduled additional afternoon events to fill her schedule which she thinks will be helpful. No plans to make medication changes and phone meeting with pt's boyfriend confirmed that guns in the home are locked and out of reach. Care was coordinated with her outpatient psychiatrist. Pt is ready for discharge and has shown plans to work on current stressors. Plan to discharge tomorrow if improvement continues. Plan (1) Bipolar I disorder 05/31 -Reviewed case with Dr. Lee, who agrees with continuing current medications for now: Aripiprazole, sertraline, mirtazapine, and zolpidem. Patient has significant outpatient services, and we will need to coordinate care with her other providers. -Fasting labs ordered for tomorrow for monitoring on an atypical. -Recommend family meeting with her boyfriend, whom she lives with. -Attend groups and participate in unit programming, work on healthy coping skills and discharge safety plan. We'll need to ensure that the gun is secured prior to discharge, and would recommend that all of the medications be kept locked and secured, and dispensed to her daily to decrease the risk of impulsive overdose. 06/01 - Continue current medications, and focus on coping skills and discharge safety planning. - Patient fears that her boyfriend may not want to come in for a meeting, so it may be helpful for staff to contact him directly to schedule a time to talk. At the very least, he should be contacted to ensure that the gun and medications are secured prior to discharge. Ideally, all of her medications would be kept locked and dispensed to her daily given her overdose and access to multiple medications that can be lethal in overdose. - Patient is considering a return to [facility] to help her better structure her time at home, and encouraged her to do this. - Despite significant outpatient services, she did not follow her safety plan and overdosed after she was unable to reach her peers specialist in outsole caser. She would benefit from reviewing and revising her discharge safety plan. 06/02--continue prn Ativan, attempt to clarify CYS actions, meeting with boyfriend around safety planning. 06/03 - continue current medications as above - Pt showed initiative as to scheduling appointments and working through the CYS case and planning activities to increase structure at home - meeting with boyfriend confirmed that guns are locked and that boyfriend is willing to help dispense and store medications - Continue protonix for epigastric pain (2) PTSD 05/31 -Patient reports worsening anxiety over the past couple of months in the context of her custody siddiqui. She is on clonidine for GI issues, which may also help with anxiety, and we will continue her current dose of sertraline for now, although we could consider increasing this, but would have to balance the risk of further destabilizing her mood. -Continue lorazepam 1 mg twice a day when necessary panic. Dr. Lee supports lowering this back to her previous dose of twice a day, and case was disinhibiting her and contributed to the impulsive overdose. (3) Obesity Encourage healthy diet, regular exercise, and weight loss. She is on Topamax for seizures, which may also help with this. (4) Hypertension Continue home dose of lisinopril (5) Postgastric surgery syndrome Continue ondansetron prn, multivitamin, potassium chloride, and weekly Emend infusion, to be given today in the [facility]. She will need to follow up with her detasseler, Dr. Bryant. (6) Opiate addiction Avoid controlled substances given her addictions history. (7) Asthma Continue Proventil and Flovent. (8) Headache Continue topiramate and Maxalt when necessary. Continue gabapentin, which she states is being prescribed for neuropathy which is a side effect of her topiramate. Discharge / Aftercare Planning Primary Care Physician: Name: Dr. Harrell Appointment Notes: As needed Psychiatrist: Name: Dr Lee [facility] Date of Appointment: Jun 08, 2017 Time of Appointment: 9:30am Therapist: Name: [facility] Date of Appointment: Jun 08, 2017 Software Engineer: Name: ABIDAJosesito Bloom Date of Appointment: Jun 06, 2017 Time of Appointment: 11:00am Screw Machine Hand: Name: Ranjeet Riddle Specialist: Name: Dr Bryant Date of Appointment: Oct 30, 2017 Time of Appointment: 9:00am Visit Code E&M Code: 75540 Inventory Assets Strengths: Supportive boyfriend, has significant outpatient services Risk Factors Assessment : Yes /single/: Yes Higher / Fall in social status: No Health problems: Yes Mental Health Diagnoses: Yes Substance use disorders: Yes Previous attempt: Yes Previous attempt;highly lethal: Yes Family history of suicide: No Previous psychiatric stay: Yes Hopelessness: No Smoker: No Protective Factors Assessment Religion beliefs: Yes : No Responsible for young children: Yes Employed: No Stable relationships: Yes Supportive family: No Good rapport with provider: Yes Data Vital Signs Last 24 Hrs: Date Time Temp Pulse Resp B/P (MAP) Pulse Ox O2 Delivery O2 Flow Rate FiO2 06/03/17 08:49 79 145/89 06/03/17 06:58 36.4 67 16 137/90 56 131/90 06/02/17 21:45 80 18 143/89 Meds Administered Last 24 Hrs: Meds Administered (Past 24Hrs) Medications (Trade) Dose Ordered Sig/Rigo Route Start Time Stop Time Status Last Admin Dose Admin Pantoprazole Sodium (Protonix Tab) 40 mg BID PRN PO 06/02/17 16:15 07/02/17 16:14 06/03/17 08:27 40 MG
[2017-06-03] MEDS: ARIPIprazole TAB 15 MG TAB PO SCH (21:53)
[2017-06-03] MEDS: MIRTAZAPINE TAB 15 MG TAB PO SCH (21:54)
[2017-06-03] MEDS: ZOLPIDEM TARTRATE 10 MG TAB PO SCH (21:56)
[2017-06-03 22:01] VITALS: BP 157/111; PULSE 67
[2017-06-04] MEDS: LORAZEPAM 1 MG TAB PO PRN ×2 (01:43→12:59)
[2017-06-04] MEDS: PANTOprazole SOD 40 MG TAB PO PRN (04:57)
[2017-06-04] MEDS: ACETAMINOPHEN 500 MG TAB PO PRN (06:19)
[2017-06-04 06:58] VITALS: BP_SYST 131; BP_DIAS 83; BP_DIAS 88; PULSE 57; PULSE 66; TEMP 36.4
[2017-06-04] MEDS: FLUTICASONE HFA 110MCG INHALER INH SCH (08:48)
[2017-06-04] MEDS: CLONIDINE HCL 0.1 MG TAB PO SCH (08:49)
[2017-06-04] MEDS: SERTRALINE HCL 100 MG TAB PO SCH (08:49)
[2017-06-04] MEDS: LISINOPRIL 10 MG TAB PO SCH (08:49)
[2017-06-04] MEDS: TOPIRAMATE 100 MG TAB PO SCH (08:49)
[2017-06-04] MEDS: GABAPENTIN 300 MG CAP PO SCH (08:49)
--- NOTE | 2017-06-04 09:11 | Discharge Instructions ---
Discharge Information Report Includes Report will include the: Discharge Instructions & Summary Admission Admission Date / Time: May 30, 2017 at 17:41 Reason for Admission: Bipolar 1, Most Recent Episode Depressed Discharge Discharge Diagnosis / Problem: Bipolar 1, most recent episode depressed Condition at Discharge: Good Discharge Goals Goal(s): Improve function Activity Recommendations Activity Limitations: resume your previous activity . Instructions / Follow-Up Instructions / Follow-Up . SPECIAL CARE INSTRUCTIONS: 1. Follow through with your scheduled aftercare appointments. If unable to keep an appointment, please call to reschedule. 2. Take your medication only as prescribed. Medication should not be changed or stopped without the approval of your doctor. In the event of worsening symptoms or concerns about side effects, contact your doctor immediately. 3. Utilize new healthy coping skills, anger management skills, and stress management skills learned during your hospitalization. Journal feelings and process them with a support person. Identify stressors or situations that may result in relapse, deterioration or inappropriate behaviors and develop a plan to deal with those issues. 4. If your coping skills are ineffective and you are in crisis, contact your outpatient providers for direction. If unable to reach your providers, please call the CAN HELP LINE AT or go to the closest Emergency Room. 5. Avoid alcohol and un-prescribed drugs. 6. You have been provided with the Mental Health Advance Directives Pamphlet for your review. AFTERCARE APPOINTMENTS: * Please call your insurance company prior to your scheduled appointment to confirm your aftercare providers are covered. Take your insurance information to your appointments. . Discharge / Aftercare Planning Primary Care Physician: Name: Dr. Harrell Appointment Notes: As needed Psychiatrist: Name: Dr Lee [facility] Date of Appointment: Jun 08, 2017 Time of Appointment: 9:30am Therapist: Name Of Therapist: [facility] Date of Appointment: Jun 08, 2017 Legal Billing Coordinator: Name: ETTA Bloom Date of Appointment: Jun 06, 2017 Time of Appointment: 11:00am Paver Layer: Name: Ranjeet Riddle Specialist: Name: Dr Bryant Date of Appointment: Oct 30, 2017 Time of Appointment: 9:00am . Follow-Up Care Plan for Follow-Up Care: Attend appointments with psychiatrist, therapist, block and case maker, mobile support. Follow plan of more structure activities and safety plan. Resume attending [facility] regularly Current Hospital Diet Patient's current hospital diet: Regular Diet Discharge Diet Recommended Diet: Regular Diet Procedures Procedures Performed: No Pending Studies Pending Studies at Discharge: No Medical Emergencies . Who to Call and When: Medical Emergencies: For questions or emergencies related to your hospital stay, please contact the Inpatient Behavioral Health Unit at [phone]. A director of placement is on-call 13/02 for the Behavioral Health Unit for emergencies At any time you feel your situation is an emergency, you may also call 911 immediately. . Non-Emergent Contact Non-Emergency issues call your: Primary Care Provider, Psychiatrist, Therapist suicidal or self harming concerns Advance Directives Do You Have an Existing Mental: No Existing Living Will: No Existing Power of Medical Instructor: No Advance Directives Info Given: To Pt/S.O. Advance Directives Reason: Declines as Mental Health Visit. Discharge Summary Admission HPI Per the Admitting provider: The patient is known to us from previous hospitalizations on our unit, most recently in June 2013 for depression, anxiety, and thoughts of self-harm in the context of a custody siddiqui. At that time, she had been abusing pain medication, and had been off her psychotropic medications for several weeks. She was placed back on aripiprazole and sertraline, and clonazepam was decreased due to her addictions issues. She had recently been using heroin, which led to a custody siddiqui for her daughter who was in the custody of her parents at that time. Yesterday, the patient presented to the emergency room about an hour and a half after an intentional overdose on multiple prescription medications including zolpidem, topiramate, lorazepam, and mirtazapine. She estimated that she took 24 pills after she felt "pushed over the edge" when she found out that she would be registered as a child abuser. She continues to go through a custody siddiqui, now with her in-laws, with regards to her 11-year-old daughter. She was observed in the emergency room, received potassium chloride, and was medically cleared. Although she was brought into the hospital by police with a 302 warrant, she was ultimately admitted voluntarily. She admitted that her boyfriend has a gun which is kept in their apartment and is not secured. Today, she was seen with Saurabh Fuentes, [place] 3. She states that she overdosed intentionally on multiple prescription medications 2 nights ago in the context of receiving a letter informing her that she would need to register as a sex offender. She states she cannot recall the exact content of the letter, but became very upset after reading it, her thoughts started racing, and she felt overwhelmed. She tried to contact her block and case maker and training and documentation specialist, and was unable to reach either of them. She says "things were getting worse and worse in my head," so she took the overdose "to stop the thoughts." She cannot state exactly what she took, but states she is fairly certain she took both zolpidem and lorazepam, even though her drug screen was negative for lorazepam. She is not sure what other medication she might have taken. After she took the overdose, her peer star specialist came to her house, noted she was slurring her speech, and called the ambulance. She is not sure if she vomited after the overdose, stating that she vomits so frequently that she does not even notice it. She says she is not sure why she received the letter, then says that it was related to an ex-boyfriend she was dating last year who was a sex offender, and that he violated his probation by being around the patient's daughter, so went back to residential. She is very concerned that this will "mess up the whole custody thing," as she has been in a custody siddiqui with her daughter' s paternal grandparents for 5 years, and they are scheduled to go to mediation on June 08. Currently, the patient has custody of her daughter on weekends , and the paternal grandparents have her during the week. She is not sure if she intended to by overdose, and denies that she had been planning to attempt suicide, but states that suicide is "always in the back of my mind." She states that her mood continues to be "up and down, I still get very manic and very depressed." She describes mood swings that occur weekly to monthly, and denies periods of euthymia in between. She states when she is "manic" her thoughts race, she doesn't sleep, can't focus, feels anxious and "the Tasmanian devil's in my head." She denies euphoric mood, grandiosity, increase in goal- directed activity, although occasionally she will spend excessively. During periods of depression, mood is down, she isolates, just wants to sit in her recliner and not do anything, sleeps excessively, and canceled her appointments. She also reports high anxiety, disrupted sleep about 4 hours a night, avoidance of stressful situations, and panic attacks with chest pain, shortness of breath, and a feeling of choking up to daily. They're often triggered by going out to the store, and sometime she will vomit. She admits to using heroin about 2 months ago, but states she just relapsed "for one day." She continues to vomit frequently and has chronic GI symptoms. She reports good compliance with her medications, and states that Dr. Lee recently put her back on sertraline, which has been helpful, and increased her lorazepam to 1 mg 3 times a day (although most recent prescription filled 05/17/2017 is a 30 day supply for #60 1 mg tablets). She reports taking zolpidem every night to sleep , and is not able to sleep without it. She denies that she has been overusing her controlled substances. She cannot recall when mirtazapine was added to her regimen. She does think that her medications help, and is not sure she wants to change them, as she feels this episode was triggered by situational stress. Hospital Course (1) Bipolar I disorder 05/31 -Reviewed case with Dr. Lee, who agrees with continuing current medications for now: Aripiprazole, sertraline, mirtazapine, and zolpidem. Patient has significant outpatient services, and we will need to coordinate care with her other providers. -Fasting labs ordered for tomorrow for monitoring on an atypical. -Recommend family meeting with her boyfriend, whom she lives with. -Attend groups and participate in unit programming, work on healthy coping skills and discharge safety plan. We'll need to ensure that the gun is secured prior to discharge, and would recommend that all of the medications be kept locked and secured, and dispensed to her daily to decrease the risk of impulsive overdose. 06/01 - Continue current medications, and focus on coping skills and discharge safety planning. - Patient fears that her boyfriend may not want to come in for a meeting, so it may be helpful for staff to contact him directly to schedule a time to talk. At the very least, he should be contacted to ensure that the gun and medications are secured prior to discharge. Ideally, all of her medications would be kept locked and dispensed to her daily given her overdose and access to multiple medications that can be lethal in overdose. - Patient is considering a return to [facility] to help her better structure her time at home, and encouraged her to do this. - Despite significant outpatient services, she did not follow her safety plan and overdosed after she was unable to reach her peers specialist in block and case maker. She would benefit from reviewing and revising her discharge safety plan. 06/02--continue prn Ativan, attempt to clarify CYS actions, meeting with boyfriend around safety planning. 06/03 - continue current medications as above - Pt showed initiative as to scheduling appointments and working through the CYS case and planning activities to increase structure at home - meeting with boyfriend confirmed that guns are locked and that boyfriend is willing to help dispense and store medications - Continue protonix for epigastric pain 06/04 -continue current medications as above, unchanged from prior to admission. -discharge today, pt plans to spend today with boyfriend [facility] out [facility] [employer]. (2) PTSD 05/31 -Patient reports worsening anxiety over the past couple of months in the context of her custody siddiqui. She is on clonidine for GI issues, which may also help with anxiety, and we will continue her current dose of sertraline for now, although we could consider increasing this, but would have to balance the risk of further destabilizing her mood. -Continue lorazepam 1 mg twice a day when necessary panic. Dr. Lee supports lowering this back to her previous dose of twice a day, and case was disinhibiting her and contributed to the impulsive overdose. 06/04 -continue current medications and continue established outpt services and [facility] (3) Obesity Encourage healthy diet, regular exercise, and weight loss. She is on Topamax for seizures, which may also help with this. (4) Hypertension Continue home dose of lisinopril (5) Postgastric surgery syndrome Continue ondansetron prn, multivitamin, potassium chloride, and weekly Em[facility] infusion, to be given today in the [facility]. She will need to follow up with her associate pastor, Dr. Bryant. 06/04 - continued to encouraged smaller amounts of po intake per meal. pt shared how in home referral with document management technician attempting to being arranged to help with this as well, continued current meds unchanged (6) Opiate addiction Avoid controlled substances given her addictions history. (7) Asthma Continue Proventil and Flovent. (8) Headache Continue topiramate and Maxalt when necessary. Continue gabapentin, which she states is being prescribed for neuropathy which is a side effect of her topiramate. Risk Factors Assessment : Yes /single/: Yes Higher / Fall in social status: No Health problems: Yes Mental Health Diagnoses: Yes Substance use disorders: Yes Previous attempt: Yes Previous attempt;highly lethal: Yes Family history of suicide: No Previous psychiatric stay: Yes Hopelessness: No Smoker: No Protective Factors Assessment Zoroastrian beliefs: Yes : No Responsible for young children: Yes Employed: No Stable relationships: Yes Supportive family: No Good rapport with provider: Yes Day of Discharge Assessment no SI or HI. mood good, affect congruent and full range and more euthymic. addressing stressors and ways to keep self occupied. no manic symptoms, mood improved and stabilized. anxiety mild and manageable and appropriate. Laboratory Test 05/29/17 18:40 05/29/17 19:04 05/29/17 19:24 05/29/17 19:25 Urine Opiates Screen NEG Urine Methadone, Qualitative NEG Urine Barbiturates NEG Urine Phencyclidine (PCP) Level NEG Ur Amphetamine/Methamphetamine NEG MDMA (Ecstasy) Screen NEG Urine Benzodiazepines Screen NEG Urine Cocaine Metabolite NEG Urine Marijuana (THC) NEG Urine Color YELLOW Urine Appearance CLEAR Urine pH 7.0 Urine Specific S[place] 1.009 Urine Protein NEG Urine Glucose (UA) NEG Urine Ketones NEG Urine Occult Blood NEG Urine Nitrite NEG Urine Bilirubin NEG Urine Urobilinogen NEG Urine Leukocyte Esterase NEG Urine Test NEG Prothrombin Time 10.9 Prothrombin Time INR 1.0 PTT 24.7 Partial Thromboplastin Ratio 1.0 Salicylates Level < 1.7 Acetaminophen Level < 2 White Blood Count 5.54 Red Blood Count 4.01 Hemoglobin 9.1 Hematocrit 30.9 Mean Corpuscular Volume 77.1 Mean Corpuscular Hemoglobin 22.7 Mean Corpuscular Hemoglobin Concent 29.4 Platelet Count 239 Mean Platelet Volume 9.6 Neutrophils (%) (Auto) 63.8 Lymphocytes (%) (Auto) 25.3 Monocytes (%) (Auto) 9.2 Eosinophils (%) (Auto) 1.3 Basophils (%) (Auto) 0.2 Neutrophils # (Auto) 3.54 Lymphocytes # (Auto) 1.40 Monocytes # (Auto) 0.51 Eosinophils # (Auto) 0.07 Basophils # (Auto) 0.01 RDW Standard Deviation 51.8 RDW Coefficient of Variation 18.2 Immature Granulocyte % (Auto) 0.2 Immature Granulocyte # (Auto) 0.01 Sodium Level 143 Potassium Level 3.3 Chloride Level 112 Carbon Dioxide Level 22 Anion Gap 9.0 Blood Urea Nitrogen 12 Creatinine 0.77 Est Creatinine Clear Calc Drug Dose 104.2 Estimated GFR () 110.4 Estimated GFR (Non- 95.2 BUN/Creatinine Ratio 16.1 Random Glucose 86 Calcium Level 8.4 Total Bilirubin 0.3 Direct Bilirubin < 0.1 Aspartate Amino Transferase (AST) 15 Alanine Aminotransferase (ALT) 22 Alkaline Phosphatase 129 Total Creatine Kinase 52 Total Protein 7.0 Albumin 3.3 Lipase 176 Ethyl Alcohol mg/dL < 3.0 Test 05/29/17 20:05 05/30/17 07:57 06/01/17 09:00 POC Glucose 85 Thyroid Stimulating Hormone (TSH) 1.820 Fasting Glucose 88 Triglycerides Level 76 Cholesterol Level 174 HDL Cholesterol 56 LDL Cholesterol, Calculated 103 VLDL Cholesterol, Calculated 15 Cholesterol/HDL Ratio 3.1 Total Time Total Time Spent (min): Greater than 30 minutes Total Time Included: examination of the patient, discharge planning, medication reconciliation Tobacco Cessation at Discharge Smoking Status: Never Smoker FDA approved Prescription: non-smoker
== END 2017-06-04 14:27 | disposition home or self-care (01) | DRG 918 ==
LOC: EDBD 18:33 → C.EDC 18:34 → C.MHU 05-30 17:41
PROVIDERS: ADMIT Psychiatry & Neurology Psychiatry; ATTEND Psychiatry & Neurology Psychiatry
DX: T42.4X2A Poisoning by benzodiazepines, intentional self-harm, initial encounter (principal); F11.20 Opioid dependence, uncomplicated; T42.6X2A Poisoning by other antiepileptic and sedative-hypnotic drugs, intentional self-harm, initial encounter; T43.022A Poisoning by tetracyclic antidepressants, intentional self-harm, initial encounter; Z80.1 Family history of malignant neoplasm of trachea, bronchus and lung; Z83.3 Family history of diabetes mellitus; Z82.49 Family history of ischemic heart disease and other diseases of the circulatory system; Z82.3 Family history of stroke; F39 Unspecified mood [affective] disorder; F31.9 Bipolar disorder, unspecified; F55.8 Abuse of other non-psychoactive substances; F60.3 Borderline personality disorder; F32.9 Major depressive disorder, single episode, unspecified; F41.9 Anxiety disorder, unspecified; F43.10 Post-traumatic stress disorder, unspecified; E66.9 Obesity, unspecified; I10 Essential (primary) hypertension; K91.1 Postgastric surgery syndromes; J45.909 Unspecified asthma, uncomplicated; R51 Headache; G62.9 Polyneuropathy, unspecified

== ENCOUNTER 2017-06-24 21:47 | Emergency (ER) | payer OTHER ==
[~2017-06-24] VITALS: Ht 157.5 cm; Wt 98.1 kg
[2017-06-24 21:50] VITALS: TEMP 36.7; Ht 157.5 cm; Wt 98.1 kg
--- NOTE | 2017-06-24 22:22 | EMERGENCY ROOM VISIT NOTE ---
History Report prepared by Jacqueline: Guillermina Carter Under the Supervision of: Dr. Sherly Parada D.O. 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 She also notes having abdominal pain. She notes that putting pressure on her abdomen helps relieve the pain. She takes Zofran and it has not helped the pain. She notes feeling fine yesterday and by this afternoon she started vomiting. She notes that she normally has chronic diarrhea 6 times a day, but her diarrhea has progressed to two to three times an hour. 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 She notes having homemade pizzas for lunch, but did not have dinner since the symptoms started. She sees here PCP once every 6 months. She takes Clonidine for blood pressure, which seemed to slow the frequency of the bowel movements. She notes the vomiting started first and then the diarrhea progressed. The patient reports that she broke her right wrist when getting out the shower last week and is wearing a cast. 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 A total of 10 systems reviewed and were otherwise negative. 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 (17) PTSD (18) Tubal ligation evaluation Surgical Problems: (1) excessive skin removal (2) gastric revision procedure with gastric bypass (3) H/O colonoscopy (4) H/O esophagogastroduodenoscopy (5) H/O exploratory laparotomy (6) H/O gastric bypass (7) H/O ventral hernia repair (8) H/O wisdom tooth extraction (9) lysis of adhesions (10) S/P cholecystectomy (11) S/P endometrial ablation (12) S/P laparoscopic hysterectomy (13) S/P panniculectomy (14) S/P partial gastrectomy (15) Status post unilateral salpingo-oophorectomy (16) wedge biopsy liver Social History Problems: (1) Gastroesophageal reflux disease (2) Hyperlipidemia Family History Cancer MOTHER (lung) Diabetes mellitus FATHER FH: gallbladder disease FH: lung disease FHx: heart disease FATHER Hypertension MOTHER Stroke FATHER Social History Smoking Status: Never Smoker Alcohol Use: none Drug Use: none Marital Status: , in relationship Housing Status: lives with significant other Occupation Status: employed Current/Historical Medications Scheduled Aripiprazole (Abilify), 15 MG PO HS Clonidine Hcl (Catapres), 0.1 MG PO BID Cyanocobalamin (Cyanocobalamin), 1,000 MCG IM Q3 MONTHS Fluticasone Propionate (Flovent Hfa), 2 PUFFS INH BID Fosaprepitant Dimeglumine (Emend), 75 MG IV WK Gabapentin (Neurontin), 300 MG PO BID Lisinopril (Zestril), 10 MG PO DAILY Mirtazapine (Remeron), 15 MG PO HS Pediatric Multiple Vitamin W/ (Flintstones Gummies), 1 TAB PO BID Potassium Chloride Microencaps (Potassium Chloride Er), 20 MEQ PO DAILY Sertraline Hcl (Zoloft), 100 MG PO DAILY Sodium Chloride (Gu Irrigant) (Sodium Chloride), 250 ML IV WK Topiramate (Topamax), 100 MG PO BID Zolpidem Tartrate (Zolpidem Tartrate), 10 MG PO HS Scheduled PRN Acetaminophen (Tylenol), 1,000 MG PO Q6H PRN for Pain Albuterol Sulfate (Proventil Hfa), 2 PUFFS INH Q4H PRN for SOB/Wheezing Lorazepam (Ativan), 1 MG PO BID PRN for Anxiety Ondansetron (Ondansetron Odt), 8 MG PO Q8 PRN for Nausea Rizatriptan Benzoate (Maxalt), 10 MG PO UD PRN for Migraine Triamcinolone Acet (Aristocort 0.1%), 1 APPLN TOP BID PRN for Itching Valacyclovir (Valtrex), 500 MG PO BID PRN for Outbreaks Allergies Coded Allergies: Morphine (Verified Allergy, Severe, TONGUE SWELLING, difficulty breathing/ wheezing, 06/07/17) tolerates hydromorphone Colestipol (Verified Allergy, Intermediate, red rash (no itching), ) Cat Dander (Verified Allergy, Unknown, ITCHY WATERY EYES , 06/07/17) NUTS (Verified Allergy, Unknown, skin test showed nut allergy, 06/07/17) per pt, eats peanuts without issue Scopolamine (Verified Adverse Reaction, Severe, Seizure, 06/07/17) SEIZURES ONLY WHEN COMBINED W/ WELLBUTRIN. Promethazine (Verified Adverse Reaction, Intermediate, "CAN'T SIT STILL", 06/07/17) Bupropion (Verified Adverse Reaction, Unknown, Seizure, 06/07/17) SEIZURES WHEN WELLBUTRIN IS COMBINED W/ SCOPALAMINE. Physical Exam Vital Signs Date Time Temp Pulse Resp B/P (MAP) Pulse Ox O2 Delivery O2 Flow Rate FiO2 06/25/17 00:59 76 18 139/89 100 Room Air 06/24/17 23:47 75 18 144/90 100 Room Air 06/24/17 21:50 36.7 73 18 178/119 100 Room Air Physical Exam HEENT: Head - normocephalic and atraumatic Pupils are equal, round, and reactive to light. Extraocular eye muscles are intact, and sclera are anicteric. Nose - moist nasal mucosa without discharge. Mouth - moist buccal mucosa. Oropharynx is nonerythematous and there is no tonsillar exudate or edema noted. Neck: Supple; no JVD, nuchal rigidity, cervical lymphadenopathy. Heart: Regular rate and rhythm. There is a normal S1 and S2 with no murmurs, clicks, or gallops appreciated. Lungs: Clear to auscultation bilaterally with no wheezes, rales, or rhonchi. Abdomen: Soft, nondistended, with good bowel sounds. LLQ pain to palpation. There are no palpable pulsatile masses or hepatosplenomegaly. There is no guarding, rigidity, or rebound noted. Extremities: No evidence of cyanosis, clubbing, or edema. There are easily palpable peripheral pulses. Skin: warm and dry with good turgor and no rashes. Medical Decision & Procedures Laboratory Results 06/24/17 22:50 Red Blood Count 3.64, Mean Corpuscular Volume 84.3, Mean Corpuscular Hemoglobin 25.3, Mean Corpuscular Hemoglobin Concent 30.0, Mean Platelet Volume 9.9, Neutrophils (%) (Auto) 62.9, Lymphocytes (%) (Auto) 27.2, Monocytes (%) (Auto) 8.0, Eosinophils (%) (Auto) 1.5, Basophils (%) (Auto) 0.2, Neutrophils # (Auto) 2.98, Lymphocytes # (Auto) 1.29, Monocytes # (Auto) 0.38, Eosinophils # (Auto) 0.07, Basophils # (Auto) 0.01 06/24/17 22:50 Test 06/24/17 22:50 White Blood Count 4.74 K/uL (4.8-10.8) Red Blood Count 3.64 M/uL (4.2-5.4) Hemoglobin 9.2 g/dL (12.0-16.0) Hematocrit 30.7 % (37-47) Mean Corpuscular Volume 84.3 fL (80-100) Mean Corpuscular Hemoglobin 25.3 pg (25-34) Mean Corpuscular Hemoglobin Concent 30.0 g/dl (32-36) Platelet Count 163 K/uL (130-400) Mean Platelet Volume 9.9 fL (7.4-10.4) Neutrophils (%) (Auto) 62.9 % Lymphocytes (%) (Auto) 27.2 % Monocytes (%) (Auto) 8.0 % Eosinophils (%) (Auto) 1.5 % Basophils (%) (Auto) 0.2 % Neutrophils # (Auto) 2.98 K/uL (1.4-6.5) Lymphocytes # (Auto) 1.29 K/uL (1.2-3.4) Monocytes # (Auto) 0.38 K/uL (0.11-0.59) Eosinophils # (Auto) 0.07 K/uL (0-0.5) Basophils # (Auto) 0.01 K/uL (0-0.2) RDW Standard Deviation 73.7 fL (36.4-46.3) RDW Coefficient of Variation 23.9 % (11.5-14.5) Immature Granulocyte % (Auto) 0.2 % Immature Granulocyte # (Auto) 0.01 K/uL (0.00-0.02) Anisocytosis PRESENT Tear Drop Cells 1+ Echinocytes 1+ Urine Color YELLOW Urine Appearance CLEAR (CLEAR) Urine pH 6.5 (4.5-7.5) Urine Specific Willet 1.019 (1.000-1.030) Urine Protein NEG (NEG) Urine Glucose (UA) NEG (NEG) Urine Ketones NEG (NEG) Urine Occult Blood NEG (NEG) Urine Nitrite NEG (NEG) Urine Bilirubin NEG (NEG) Urine Urobilinogen NEG (NEG) Urine Leukocyte Esterase TRACE (NEG) Urine WBC (Auto) 1-5 /hpf (0-5) Urine RBC (Auto) 0-4 /hpf (0-4) Urine Hyaline Casts (Auto) 0 /lpf (0-5) Urine Epithelial Cells (Auto) >30 /lpf (0-5) Urine Bacteria (Auto) NEG (NEG) Anion Gap 9.0 mmol/L (3-11) Est Creatinine Clear Calc Drug Dose 151.3 ml/min Estimated GFR () 135.7 Estimated GFR (Non- 117.1 BUN/Creatinine Ratio 16.7 (10-20) Calcium Level 7.4 mg/dl (8.5-10.1) Magnesium Level 2.0 mg/dl (1.8-2.4) Total Bilirubin 0.2 mg/dl (0.2-1) Direct Bilirubin < 0.1 mg/dl (0-0.2) Aspartate Amino Transf (AST/SGOT) 22 U/L (15-37) Alanine Aminotransferase (ALT/SGPT) 24 U/L (12-78) Alkaline Phosphatase 103 U/L (45-117) Total Protein 5.9 gm/dl (6.4-8.2) Albumin 2.8 gm/dl (3.4-5.0) Lipase 195 U/L (73-393) Laboratory results per my review. Medications Administered Medications (Trade) Dose Ordered Sig/Rigo Route Start Time Stop Time Status Last Admin Dose Admin Sodium Chloride 500 ml @ 999 mls/hr Q31M STAT IV 06/24/17 22:30 06/24/17 23:00 DC 06/24/17 22:57 999 MLS/HR Metoclopramide HCl (Reglan Inj) 10 mg NOW STAT IV 06/24/17 22:30 122/17 22:32 DC 06/24/17 22:57 10 MG Dicyclomine HCl (Bentyl Inj) 20 mg NOW ONCE IM 06/24/17 23:45 06/24/17 23:46 DC 06/24/17 23:47 20 MG Heparin Sodium (Porcine) (Heparin 100 Unit/ml 5ml Flush) 5 ml STK-MED ONCE .ROUTE 06/25/17 00:55 06/25/17 00:56 DC 06/25/17 00:58 5 ML Procedure Reglan IV, Sodium Chloride IV, Bentyl IM. ED Course 2157: Patient was evaluated in room B9. A complete history and physical examination was performed. Her port was accessed. 2230: Ordered Reglan Inj 10 mg IV, Sodium Chloride 500 ml @ 999 mls/hr IV. 2335: I reassessed the patient. She has had two bowel movements, and still feels nauseous. A stool sample was collected. 2345: Ordered Bentyl Inj 20 mg IM. 0110: Upon reevaluation, the patient feels much better. I discussed findings and results with her. She was able to drink clear liquids without difficulty. C. difficile was negative. She verbalized agreement of the treatment plan. The patient was discharged home. Medical Decision The patient is a 41 year old female who presents to the ED with constant vomiting and diarrhea. Differential diagnosis includes viral gastroenteritis, dehydration, diverticulitis, colitis. Laboratory studies: WBC of 4.7. Hemoglobin of 9.7 which is baseline. Normal renal function. Potassium is low at 3.3. Lipase and LFTs are normal. Magnesium of 2. Urinalysis is normal other than trace leukocyte esterase. This is a 41-year-old female patient has a long history of GI symptoms. She presents with sudden onset of vomiting and diarrhea. The patient was finally able to keep down fluids and stopped the frequent stools. Her C. difficile testing was negative. 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 She will need sent a bland diet and plenty of clear liquids. As for the patient's abdominal pain, it seems to have subsided at this time. If it were to return or if she were to develop fevers, she should return to the ER immediately. Medication Reconcilliation Current Medication List: was personally reviewed by me Blood Pressure Screening Patient's blood pressure: Elevated blood pressure Blood pressure disposition: Elevated BP felt to be situational Impression Primary Impression: Vomiting Additional Impression: Diarrhea Scribe Attestation The scribe's documentation has been prepared under my direction and personally reviewed by me in its entirety. I confirm that the note above accurately reflects all work, treatment, procedures, and medical decision making performed by me. Departure Information Dispostion Home / Self-Care Referrals Marivel Harrell MD (PCP) Forms HOME CARE DOCUMENTATION FORM, IMPORTANT VISIT INFORMATION Patient Instructions ED Vomiting Diarrhea Nonspecific Ad, [facility] Additional Instructions Rest. take a bland diet and plenty of clear liquids Follow up with PCP if symptoms worsen Problem Qualifiers Primary Impression: Vomiting Vomiting type: unspecified Vomiting Intractability: non-intractable Nausea presence: with nausea Qualified Codes: R11.2 - Nausea with vomiting, unspecified Additional Impression: Diarrhea Diarrhea type: unspecified type Qualified Codes: R19.7 - Diarrhea, unspecified
[2017-06-24] MEDS ORDERED: SODIUM CHLORIDE 0.9% 500ML 500 ML IV STA (22:30)
[2017-06-24] MEDS ORDERED: METOCLOPRAMIDE HCL INJ 5 MG/ML 2 ML VIAL IV STA (22:30)
[2017-06-24 23:00] LABS: BASO % 0.2 %; BASO ABS # 0.01 K/uL (0-0.2); EOS % 1.5 %; HEMATOCRIT 30.7 % (37-47); IG% 0.2 %; LYMPH % 27.2 %; LYMPH ABS # 1.29 K/uL (1.2-3.4); MANUAL MICROSCOPIC REQUIRED? NO; MEAN CELL VOLUME 84.3 fL (80-100); MEAN CORPUSCULAR HEMOGLOBIN 25.3 pg (25-34); MEAN PLATELET VOLUME 9.9 fL (7.4-10.4); NEUT % 62.9 %; PLATELET COUNT 163 K/uL (130-400); RED BLOOD COUNT 3.64 M/uL (4.2-5.4); REVIEW REQ? NO; URINE APPEARANCE CLEAR (CLEAR); URINE BILIRUBIN NEG (NEG); URINE COLOR YELLOW; URINE EPITHELIAL CELL AUTO >30 /lpf (0-5); URINE NITRITE NEG (NEG); URINE PH 6.5 (4.5-7.5); URINE SPECIFIC GRAVITY 1.019 (1.000-1.030); UROBILINOGEN NEG (NEG); WHITE BLOOD COUNT 4.74 K/uL (4.8-10.8)
[2017-06-24 23:17] LABS: ALT/SGPT 24 U/L (12-78); BLOOD UREA NITROGEN 9 mg/dl (7-18); BUN/CREATININE RATIO 16.7 (10-20); CALCIUM 7.4 mg/dl (8.5-10.1); CARBON DIOXIDE 20 mmol/L (21-32); CHLORIDE 115 mmol/L (98-107); CREATININE 0.53 mg/dl (0.60-1.20); GLUCOSE 73 mg/dl (70-99); POTASSIUM 3.3 mmol/L (3.5-5.1); SODIUM 143 mmol/L (136-145)
[2017-06-24 23:20] LABS: ALKALINE PHOSPHATASE 103 U/L (45-117); AST/SGOT 22 U/L (15-37)
[2017-06-24 23:25] LABS: ANISOCYTOSIS PRESENT; COMPLETE YES; ECHINOCYTES 1+; TEAR DROP CELLS 1+
[2017-06-24] MEDS ORDERED: DICYCLOMINE HCL 10 MG/ML 2 ML AMP IM ONE (23:45)
[2017-06-25 00:59] VITALS: BP 139/89; PULSE 76; O2SAT 100
== END 2017-06-25 01:20 | disposition home or self-care (01) ==
LOC: C.EDB 21:48
DX: R11.10 Vomiting, unspecified (principal); R19.7 Diarrhea, unspecified; F40.00 Agoraphobia, unspecified; J45.909 Unspecified asthma, uncomplicated; F31.9 Bipolar disorder, unspecified; D64.9 Anemia, unspecified; R10.2 Pelvic and perineal pain; G89.29 Other chronic pain; Q61.2 Polycystic kidney, adult type; F43.10 Post-traumatic stress disorder, unspecified; K21.9 Gastro-esophageal reflux disease without esophagitis; E78.5 Hyperlipidemia, unspecified; Z79.51 Long term (current) use of inhaled steroids; Z98.84 Bariatric surgery status; Z90.49 Acquired absence of other specified parts of digestive tract; Z90.710 Acquired absence of both cervix and uterus; Z80.1 Family history of malignant neoplasm of trachea, bronchus and lung; Z83.3 Family history of diabetes mellitus; Z83.79 Family history of other diseases of the digestive system; Z82.49 Family history of ischemic heart disease and other diseases of the circulatory system; Z82.3 Family history of stroke

== ENCOUNTER 2017-07-01 19:43 | Emergency (ER) | payer OTHER ==
[~2017-07-01] VITALS: Ht 157.5 cm; Wt 98.0 kg
[2017-07-01 19:50] VITALS: TEMP 36.8; Ht 157.5 cm; Wt 98.0 kg
[2017-07-01] MEDS ORDERED: SODIUM CHLORIDE 0.9% 1000ML 1,000 ML IV STA (20:11)
[2017-07-01] MEDS ORDERED: ONDANSETRON INJ 2 MG/ML 2 ML VIAL IV STA (20:11)
--- NOTE | 2017-07-01 20:42 | EMERGENCY ROOM VISIT NOTE ---
History Report prepared by Jacqueline: Rafael Bautista Under the Supervision of: Dr. Jaz Pickett M.D. First contact with patient: 19:57 Chief Complaint: ABDOMINAL PAIN Stated Complaint: NAUSEA, VOMITING, DIARRHEA, ABDOMINAL PAIN Nursing Triage Summary: Pt complains of abdominal pain, nausea, vomiting and diarrhea. Pt was here last week with same symptoms. History of Present Illness The patient is a 41 year old female who presents to the Emergency Room with complaints of worsening abdominal pain for the past 1 week. She rates her discomfort as a 6/10 in severity. She was seen here in the ED last week for the same symptoms and states things have worsened since she was last seen here. She notes she has been here to the ED 3 times since the beginning of May. The patient's suction operator, Dr. Bryant, advised her to come to the ED to "prevent dehydration". She states she is currently being treated for " chronic gastric bypass syndrome". The patient also complains of nausea, vomiting and diarrhea. Zofran taken at home has provided minimal relief. She denies any fevers, hematochezia or hematemesis. Source of History: patient Onset: 1 week ago Position: abdomen Symptom Intensity: 6/10 Timing: worsening Associated Symptoms: + nausea, + vomiting, + diarrhea, No fevers, No hematochezia Review of Systems See HPI for pertinent positives & negatives. A total of 10 systems reviewed and were otherwise negative. 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 (17) PTSD (18) Tubal ligation evaluation Surgical Problems: (1) excessive skin removal (2) gastric revision procedure with gastric bypass (3) H/O colonoscopy (4) H/O esophagogastroduodenoscopy (5) H/O exploratory laparotomy (6) H/O gastric bypass (7) H/O ventral hernia repair (8) H/O wisdom tooth extraction (9) lysis of adhesions (10) S/P cholecystectomy (11) S/P endometrial ablation (12) S/P laparoscopic hysterectomy (13) S/P panniculectomy (14) S/P partial gastrectomy (15) Status post unilateral salpingo-oophorectomy (16) wedge biopsy liver Social History Problems: (1) Gastroesophageal reflux disease (2) Hyperlipidemia Family History Cancer MOTHER (lung) Diabetes mellitus FATHER FH: gallbladder disease FH: lung disease FHx: heart disease FATHER Hypertension MOTHER Stroke FATHER Social History Smoking Status: Never Smoker Alcohol Use: none Drug Use: none Marital Status: , in relationship Housing Status: lives with significant other Occupation Status: employed Current/Historical Medications Scheduled Aripiprazole (Abilify), 15 MG PO HS Clonidine Hcl (Catapres), 0.1 MG PO BID Cyanocobalamin (Cyanocobalamin), 1,000 MCG IM Q3 MONTHS Fluticasone Propionate (Flovent Hfa), 2 PUFFS INH BID Fosaprepitant Dimeglumine (Emend), 75 MG IV WK Gabapentin (Neurontin), 300 MG PO BID Lisinopril (Zestril), 10 MG PO DAILY Mirtazapine (Remeron), 15 MG PO HS Pediatric Multiple Vitamin W/ (Flintstones Gummies), 1 TAB PO BID Potassium Chloride Microencaps (Potassium Chloride Er), 20 MEQ PO DAILY Sertraline Hcl (Zoloft), 100 MG PO DAILY Sodium Chloride (Gu Irrigant) (Sodium Chloride), 250 ML IV WK Topiramate (Topamax), 100 MG PO BID Zolpidem Tartrate (Zolpidem Tartrate), 10 MG PO HS Scheduled PRN Acetaminophen (Tylenol), 1,000 MG PO Q6H PRN for Pain Albuterol Sulfate (Proventil Hfa), 2 PUFFS INH Q4H PRN for SOB/Wheezing Lorazepam (Ativan), 1 MG PO BID PRN for Anxiety Ondansetron (Ondansetron Odt), 8 MG PO Q8 PRN for Nausea Rizatriptan Benzoate (Maxalt), 10 MG PO UD PRN for Migraine Triamcinolone Acet (Aristocort 0.1%), 1 APPLN TOP BID PRN for Itching Valacyclovir (Valtrex), 500 MG PO BID PRN for Outbreaks Allergies Coded Allergies: Morphine (Verified Allergy, Severe, TONGUE SWELLING, difficulty breathing/ wheezing, 06/28/17) tolerates hydromorphone Colestipol (Verified Allergy, Intermediate, red rash (no itching), 06/28/17 ) Cat Dander (Verified Allergy, Unknown, ITCHY WATERY EYES , 06/28/17) NUTS (Verified Allergy, Unknown, skin test showed nut allergy, 06/28/17) per pt, eats peanuts without issue Scopolamine (Verified Adverse Reaction, Severe, Seizure, 06/28/17) SEIZURES ONLY WHEN COMBINED W/ WELLBUTRIN. Promethazine (Verified Adverse Reaction, Intermediate, "CAN'T SIT STILL", 06/28/17) Bupropion (Verified Adverse Reaction, Unknown, Seizure, 06/28/17) SEIZURES WHEN WELLBUTRIN IS COMBINED W/ SCOPALAMINE. Physical Exam Vital Signs Date Time Temp Pulse Resp B/P (MAP) Pulse Ox O2 Delivery O2 Flow Rate FiO2 07/01/17 22:13 88 16 115/76 98 07/01/17 19:50 36.8 71 20 158/103 97 Room Air Physical Exam Vital signs reviewed. General: Well-appearing 41 year old female, obese, in no significant distress. HEENT: No scleral icterus, PERRLA, neck supple. Atraumatic. Cardiovascular: Regular rate and rhythm, no extra sounds. Pulmonary: Clear to auscultation bilaterally, normal work of breathing. Abdomen: Soft, nontender, nondistended, positive bowel sounds. Musculoskeletal: Atraumatic, no peripheral edema. Neurologic: Patient awake alert and oriented x 3 Skin: Warm, dry, mild lacy rash to the anterior chest and upper back noted. Medical Decision & Procedures Laboratory Results 07/01/17 20:48 Red Blood Count 3.99, Mean Corpuscular Volume 84.0, Mean Corpuscular Hemoglobin 25.8, Mean Corpuscular Hemoglobin Concent 30.7, Mean Platelet Volume 10.1, Neutrophils (%) (Auto) 55.8, Lymphocytes (%) (Auto) 31.9, Monocytes (%) (Auto) 9.8, Eosinophils (%) (Auto) 2.1, Basophils (%) (Auto) 0.2, Neutrophils # (Auto) 2.67, Lymphocytes # (Auto) 1.53, Monocytes # (Auto) 0.47, Eosinophils # (Auto) 0.10, Basophils # (Auto) 0.01 07/01/17 20:48 Test 07/01/17 20:48 White Blood Count 4.79 K/uL (4.8-10.8) Red Blood Count 3.99 M/uL (4.2-5.4) Hemoglobin 10.3 g/dL (12.0-16.0) Hematocrit 33.5 % (37-47) Mean Corpuscular Volume 84.0 fL (80-100) Mean Corpuscular Hemoglobin 25.8 pg (25-34) Mean Corpuscular Hemoglobin Concent 30.7 g/dl (32-36) Platelet Count 183 K/uL (130-400) Mean Platelet Volume 10.1 fL (7.4-10.4) Neutrophils (%) (Auto) 55.8 % Lymphocytes (%) (Auto) 31.9 % Monocytes (%) (Auto) 9.8 % Eosinophils (%) (Auto) 2.1 % Basophils (%) (Auto) 0.2 % Neutrophils # (Auto) 2.67 K/uL (1.4-6.5) Lymphocytes # (Auto) 1.53 K/uL (1.2-3.4) Monocytes # (Auto) 0.47 K/uL (0.11-0.59) Eosinophils # (Auto) 0.10 K/uL (0-0.5) Basophils # (Auto) 0.01 K/uL (0-0.2) RDW Standard Deviation 71.3 fL (36.4-46.3) RDW Coefficient of Variation 23.5 % (11.5-14.5) Immature Granulocyte % (Auto) 0.2 % Immature Granulocyte # (Auto) 0.01 K/uL (0.00-0.02) Anisocytosis PRESENT Ovalocytes 1+ Echinocytes 1+ Anion Gap 6.0 mmol/L (3-11) Est Creatinine Clear Calc Drug Dose 116.1 ml/min Estimated GFR () 124.4 Estimated GFR (Non- 107.4 BUN/Creatinine Ratio 20.6 (10-20) Calcium Level 8.0 mg/dl (8.5-10.1) Magnesium Level 2.2 mg/dl (1.8-2.4) Total Bilirubin 0.2 mg/dl (0.2-1) Direct Bilirubin < 0.1 mg/dl (0-0.2) Aspartate Amino Transf (AST/SGOT) 21 U/L (15-37) Alanine Aminotransferase (ALT/SGPT) 23 U/L (12-78) Alkaline Phosphatase 114 U/L (45-117) Total Protein 6.5 gm/dl (6.4-8.2) Albumin 3.1 gm/dl (3.4-5.0) Lipase 282 U/L (73-393) Laboratory results per my review. Medications Administered Medications (Trade) Dose Ordered Sig/Rigo Route Start Time Stop Time Status Last Admin Dose Admin Ondansetron HCl (Zofran Inj) 4 mg NOW STAT IV 07/01/17 20:11 07/01/17 20:13 DC 07/01/17 20:11 4 MG Sodium Chloride 1,000 ml @ 999 mls/hr Q1H1M STAT IV 07/01/17 20:11 07/01/17 21:11 DC 07/01/17 20:11 999 MLS/HR Heparin Sodium (Porcine) (Heparin 10 Unit/ ml 5 ml Flush) 5 ml STK-MED ONCE .ROUTE 07/01/17 21:53 07/01/17 21:54 DC 07/01/17 21:53 5 ML ED Course 2009: Past medical records reviewed. The patient was evaluated in room C7. A complete history and physical examination was performed. 2011: Zofran 4mg IV, NSS 1000ml @ 999mls/hr 2153: Heparin Sodium 5 ml IV. 2200: I reevaluated the patient. She is feeling well. I discussed her results and discharge instructions and she verbalized complete understanding and agreement. Medical Decision Differential diagnosis: Dehydration, Viral Illness, C Diff colitis, GI bleed, Gastroparesis This patient was evaluated and appeared to be in no significant distress. IV access was obtained and laboratory work was drawn. Patient was placed on the air sampling and monitoring and found to be in a normal sinus rhythm. She was hydrated with normal saline solution. She was given 4 mg of IV Zofran. Nursing noted a faint lacy rash to the anterior chest and upper back. It seems to be isolated to these areas I feel is likely a contact dermatitis. Patient has no signs of allergy and takes Zofran several times daily. She was feeling better on reevaluation and ambulated to the restroom without difficulty. She will be discharged to follow-up with gastroenterology on Monday as scheduled. She will return to the ER for worsening of symptoms or any medical concerns. Medication Reconcilliation Current Medication List: was personally reviewed by me Blood Pressure Screening Patient's blood pressure: Elevated blood pressure Blood pressure disposition: Referred to PCP Impression Primary Impression: Intractable nausea and vomiting Scribe Attestation The scribe's documentation has been prepared under my direction and personally reviewed by me in its entirety. I confirm that the note above accurately reflects all work, treatment, procedures, and medical decision making performed by me. Departure Information Dispostion Home / Self-Care Referrals Marivel Harrell MD (PCP) Patient Instructions [facility]
[2017-07-01 21:00] LABS: BASO % 0.2 %; BASO ABS # 0.01 K/uL (0-0.2); EOS % 2.1 %; HEMATOCRIT 33.5 % (37-47); IG% 0.2 %; LYMPH % 31.9 %; LYMPH ABS # 1.53 K/uL (1.2-3.4); MEAN CORPUSCULAR HEMOGLOBIN 25.8 pg (25-34); MEAN CORPUSCULAR HGB CONC 30.7 g/dl (32-36); MEAN PLATELET VOLUME 10.1 fL (7.4-10.4); MONO % 9.8 %; NEUT % 55.8 %; PLATELET COUNT 183 K/uL (130-400); RED BLOOD COUNT 3.99 M/uL (4.2-5.4); WHITE BLOOD COUNT 4.79 K/uL (4.8-10.8)
[2017-07-01 21:20] LABS: BLOOD UREA NITROGEN 14 mg/dl (7-18); BUN/CREATININE RATIO 20.6 (10-20); CARBON DIOXIDE 23 mmol/L (21-32); CHLORIDE 113 mmol/L (98-107); CREATININE 0.69 mg/dl (0.60-1.20); GLUCOSE 82 mg/dl (70-99); MAGNESIUM 2.2 mg/dl (1.8-2.4); POTASSIUM 3.5 mmol/L (3.5-5.1); SODIUM 141 mmol/L (136-145)
[2017-07-01 21:23] LABS: ALKALINE PHOSPHATASE 114 U/L (45-117); ALT/SGPT 23 U/L (12-78); AST/SGOT 21 U/L (15-37)
[2017-07-01 21:25] LABS: ANISOCYTOSIS PRESENT; COMPLETE YES; ECHINOCYTES 1+; OVALOCYTES 1+
[2017-07-01 22:13] VITALS: BP 115/76; PULSE 88; O2SAT 98
== END 2017-07-01 22:14 | disposition home or self-care (01) ==
LOC: C.EDB 19:44 → C.EDC 22:14
DX: R11.2 Nausea with vomiting, unspecified (principal); K91.1 Postgastric surgery syndromes; F40.00 Agoraphobia, unspecified; F31.9 Bipolar disorder, unspecified; J45.909 Unspecified asthma, uncomplicated; Q61.2 Polycystic kidney, adult type; F43.10 Post-traumatic stress disorder, unspecified; Z98.51 Tubal ligation status; Z98.84 Bariatric surgery status; Z90.49 Acquired absence of other specified parts of digestive tract; Z90.3 Acquired absence of stomach [part of]; Z90.79 Acquired absence of other genital organ(s); K21.9 Gastro-esophageal reflux disease without esophagitis; E78.5 Hyperlipidemia, unspecified; Z80.1 Family history of malignant neoplasm of trachea, bronchus and lung; Z83.3 Family history of diabetes mellitus; Z82.49 Family history of ischemic heart disease and other diseases of the circulatory system; Z82.3 Family history of stroke; Z79.899 Other long term (current) drug therapy

== ENCOUNTER 2017-07-05 21:32 | Emergency (ER) | payer OTHER ==
[~2017-07-05] VITALS: Ht 157.5 cm; Wt 97.7 kg
[2017-07-05 21:35] VITALS: TEMP 36.6; Ht 157.5 cm; Wt 97.7 kg
[2017-07-05] MEDS ORDERED: METOCLOPRAMIDE HCL INJ 5 MG/ML 2 ML VIAL IV STA (21:48)
[2017-07-05] MEDS ORDERED: DICYCLOMINE HCL 10 MG/ML 2 ML AMP IM ONE (22:00)
[2017-07-05] MEDS ORDERED: SODIUM CHLORIDE 0.9% 1000ML 1,000 ML IV ONE (22:00)
[2017-07-05 22:23] LABS: URINE APPEARANCE CLEAR (CLEAR); URINE BILIRUBIN NEG (NEG); URINE COLOR YELLOW; URINE NITRITE NEG (NEG); URINE SPECIFIC GRAVITY 1.015 (1.000-1.030); UROBILINOGEN NEG (NEG); ZZUR CULT IF INDIC CLEAN CATCH NO
[2017-07-05 22:26] LABS: MANUAL MICROSCOPIC REQUIRED? NO; REVIEW REQ? NO
[2017-07-05 22:32] LABS: BUN/CREATININE RATIO 18.1 (10-20); CREATININE 0.61 mg/dl (0.60-1.20); POTASSIUM 4.1 mmol/L (3.5-5.1)
[2017-07-05 22:37] LABS: EOS % 1.9 %; HEMATOCRIT 35.1 % (37-47); IG% 0.2 %; LYMPH % 27.9 %; LYMPH ABS # 1.47 K/uL (1.2-3.4); MEAN CORPUSCULAR HEMOGLOBIN 26.2 pg (25-34); MEAN CORPUSCULAR HGB CONC 30.8 g/dl (32-36); MEAN PLATELET VOLUME 10.2 fL (7.4-10.4); MONO % 10.5 %; NEUT % 59.5 %; PLATELET COUNT 213 K/uL (130-400); RED BLOOD COUNT 4.13 M/uL (4.2-5.4); WHITE BLOOD COUNT 5.26 K/uL (4.8-10.8)
[2017-07-05 22:55] LABS: BENZODIAZEPINE, URINE NEG (NEG); COCAINE,URINE NEG (NEG); PHENCYCLIDINE, URINE NEG (NEG)
--- NOTE | 2017-07-05 23:00 | DIAGNOSTIC IMAGING REPORT ---
ABDOMEN 2VIEW W/PA CHEST RTN HISTORY: 41 years-old Female N/V/D. Hx bowel resection in past. Acute nausea, vomiting and diarrhea COMPARISON: Acute abdominal series radiographs 05/24/2017 TECHNIQUE: PA view of the chest with erect and supine views of the abdomen FINDINGS: The cardiomediastinal and hilar silhouettes are within normal limits. Left subclavian [id number] catheter is unchanged. Atherosclerosis of the aorta. No pneumothorax, pleural effusion, focal airspace consolidation or overt pulmonary edema. Degenerative changes are seen within the shoulders. Surgical clips of the right upper abdomen suggest prior cholecystectomy. No pneumoperitoneum on the upright projection. Multiple gas-filled dilated loops of large bowel are noted with air-fluid levels seen within the right upper abdomen. No definite small bowel obstruction. Moderate stool volume of the cecum, ascending, descending and sigmoid colon. Phleboliths of the pelvis. No definite urolith or organomegaly. IMPRESSION: 1. Persistent gaseous distention of large bowel with associated air-fluid levels suspicious for diarrheal state. 2. No evidence of small bowel obstruction. 3. No acute cardiopulmonary process. The above report was generated using voice recognition software. It may contain grammatical, syntax or spelling errors. Electronically signed by: Mp Singleton M.D. 07/05/2017 10:59 PM Dictated Date/Time: 07/05/2017 10:55 PM
[2017-07-05 23:01] LABS: ACANTHOCYTES 1+; ANISOCYTOSIS PRESENT; COMPLETE YES
--- NOTE | 2017-07-05 23:18 | EMERGENCY ROOM VISIT NOTE ---
ED Visit Note First contact with patient: 21:37 Staff note: I have reviewed the Patients chart and have discussed this case with my PA. I generally agree with the ED note and findings.
[2017-07-06] MEDS ORDERED: OPTIRAY 320 IV PRN (02:00)
[2017-07-06 02:47] VITALS: BP 137/91; PULSE 61; O2SAT 96
--- NOTE | 2017-07-06 04:45 | EMERGENCY ROOM VISIT NOTE ---
History First contact with patient: 21:37 Chief Complaint: NAUSEA Stated Complaint: NAUSEA Nursing Triage Summary: c/o vomiting and abd cramping. pt had an amend infusion yesteday and today and has been taking zofran without relief. pt reports 4 episodes of vomiting today. pt was seen here this weekend for same symptoms. hx colon resection and gastric bypass. pt has appointment with GI on 07/13. History of Present Illness The patient is a 41 year old female who presents to the Emergency Room with complaints of nausea, vomiting, and abdominal cramping today. She has been seen several times this month with similar complaints. The patient has had ongoing symptoms like this for the past several weeks. She has had to IV doses of Emend, one yesterday, and one the day before, to help with these symptoms. She has been taking Zofran at home and continues to be nauseated. She had 4 episodes of nonbloody nonbilious emesis today. She does have abdominal cramping. Her symptoms do exacerbate with food. She does have a history of partial bowel resection with 3 anastomosis in the past. The patient has an upcoming appointment in about a week with GI. She rates her overall discomfort a 9/10. Review of Systems More than 10 systems were reviewed and otherwise negative with the exception of history of present illness. Past Medical/Surgical History Medical Problems: (1) a-port placement (2) Abdominal pain (3) Agoraphobia (4) Asthma (5) Bipolar I disorder (6) Chronic anemia (7) Chronic pelvic pain in female (8) Dynamic ileus (9) H/O drug abuse (10) Heavy menstrual bleeding (11) History of esophageal dilatation (12) Ileus (13) Obesity (14) Opiate addiction (15) Polycystic kidney disease, adult type (16) Postgastric surgery syndrome (17) PTSD (18) Tubal ligation evaluation Surgical Problems: (1) excessive skin removal (2) gastric revision procedure with gastric bypass (3) H/O colonoscopy (4) H/O esophagogastroduodenoscopy (5) H/O exploratory laparotomy (6) H/O gastric bypass (7) H/O ventral hernia repair (8) H/O wisdom tooth extraction (9) lysis of adhesions (10) S/P cholecystectomy (11) S/P endometrial ablation (12) S/P laparoscopic hysterectomy (13) S/P panniculectomy (14) S/P partial gastrectomy (15) Status post unilateral salpingo-oophorectomy (16) wedge biopsy liver Social History Problems: (1) Gastroesophageal reflux disease (2) Hyperlipidemia Family History Cancer MOTHER (lung) Diabetes mellitus FATHER FH: gallbladder disease FH: lung disease FHx: heart disease FATHER Hypertension MOTHER Stroke FATHER Social History Smoking Status: Never Smoker Alcohol Use: none Drug Use: none Marital Status: , in relationship Housing Status: lives with significant other Occupation Status: employed Current/Historical Medications Scheduled Aripiprazole (Abilify), 15 MG PO HS Clonidine Hcl (Catapres), 0.1 MG PO BID Cyanocobalamin (Cyanocobalamin), 1,000 MCG IM Q3 MONTHS Fluticasone Propionate (Flovent Hfa), 2 PUFFS INH BID Fosaprepitant Dimeglumine (Emend), 75 MG IV WK Gabapentin (Neurontin), 300 MG PO BID Lisinopril (Zestril), 10 MG PO DAILY Mirtazapine (Remeron), 15 MG PO HS Pediatric Multiple Vitamin W/ (Flintstones Gummies), 1 TAB PO BID Potassium Chloride Microencaps (Potassium Chloride Er), 20 MEQ PO DAILY Sertraline Hcl (Zoloft), 100 MG PO DAILY Topiramate (Topamax), 100 MG PO BID Zolpidem Tartrate (Zolpidem Tartrate), 10 MG PO HS Scheduled PRN Acetaminophen (Tylenol), 1,000 MG PO Q6H PRN for Pain Albuterol Sulfate (Proventil Hfa), 2 PUFFS INH Q4H PRN for SOB/Wheezing Lorazepam (Ativan), 1 MG PO TID PRN for Anxiety Ondansetron (Ondansetron Odt), 8 MG PO Q8 PRN for Nausea Rizatriptan Benzoate (Maxalt), 10 MG PO UD PRN for Migraine Triamcinolone Acet (Aristocort 0.1%), 1 APPLN TOP BID PRN for Itching Valacyclovir (Valtrex), 500 MG PO BID PRN for Outbreaks Physical Exam Vital Signs Date Time Temp Pulse Resp B/P (MAP) Pulse Ox O2 Delivery O2 Flow Rate FiO2 07/06/17 02:47 61 18 137/91 96 07/06/17 02:13 58 07/06/17 01:47 63 16 153/97 96 Room Air 07/06/17 00:30 65 16 145/92 97 Room Air 07/05/17 23:06 68 18 168/102 96 Room Air 07/05/17 21:50 78 07/05/17 21:35 36.6 71 18 169/110 97 Room Air Physical Exam VITALS: Vitals are noted on the nurse's note and reviewed by myself. Vital signs stable. GENERAL: Well-developed, well-nourished, white female, who is in no acute distress and resting comfortably. Patient is cooperative with the examination. HEART: Regular rate and rhythm without murmurs gallops or rubs. LUNGS: Clear to auscultation bilaterally without wheezes, rales or rhonchi. No retractions or accessory muscle use. ABDOMEN: Positive normal bowel sounds x 4. Soft, nontender, without masses or organomegaly. No guarding or rebound tenderness. MUSCULOSKELETAL: No muscle atrophy, erythema, or edema noted. Full range of motion without joint tenderness in all extremities. Medical Decision & Procedures ER Provider Diagnostic Interpretation: Preliminary Findings Only See Final Report For Complete Findings CT ABDOMEN & PELVIS With Contrast: Comparison: CT dated 11/20/2015. Stable postsurgical changes of gastrectomy and bowel surgery with anastomosis in the pelvis. Question mild wall thickening of small bowel loops in the pelvis which may indicate mild nonspecific enteritis in the appropriate clinical setting. Correlate clinically. No evidence of bowel obstruction or free air. No evidence of acute appendicitis. Moderate stool in the colon. Correlate for constipation. Incidental findings: Status post cholecystectomy. Duplex left kidney. Left lung base granuloma. ABDOMEN 2VIEW W/PA CHEST RTN HISTORY: 41 years-old Female N/V/D. Hx bowel resection in past. Acute nausea, vomiting and diarrhea COMPARISON: Acute abdominal series radiographs 05/24/2017 TECHNIQUE: PA view of the chest with erect and supine views of the abdomen FINDINGS: The cardiomediastinal and hilar silhouettes are within normal limits. Left subclavian Fasvtm-d-Kodk catheter is unchanged. Atherosclerosis of the aorta. No pneumothorax, pleural effusion, focal airspace consolidation or overt pulmonary edema. Degenerative changes are seen within the shoulders. Surgical clips of the right upper abdomen suggest prior cholecystectomy. No pneumoperitoneum on the upright projection. Multiple gas-filled dilated loops of large bowel are noted with air-fluid levels seen within the right upper abdomen. No definite small bowel obstruction. Moderate stool volume of the cecum, ascending, descending and sigmoid colon. Phleboliths of the pelvis. No definite urolith or organomegaly. IMPRESSION: 1. Persistent gaseous distention of large bowel with associated air-fluid levels suspicious for diarrheal state. 2. No evidence of small bowel obstruction. 3. No acute cardiopulmonary process. Laboratory Results 07/05/17 22:05 Red Blood Count 4.13, Mean Corpuscular Volume 85.0, Mean Corpuscular Hemoglobin 26.2, Mean Corpuscular Hemoglobin Concent 30.8, Mean Platelet Volume 10.2, Neutrophils (%) (Auto) 59.5, Lymphocytes (%) (Auto) 27.9, Monocytes (%) (Auto) 10.5, Eosinophils (%) (Auto) 1.9, Basophils (%) (Auto) 0.0, Neutrophils # (Auto ) 3.13, Lymphocytes # (Auto) 1.47, Monocytes # (Auto) 0.55, Eosinophils # (Auto ) 0.10, Basophils # (Auto) 0.00 07/05/17 22:05 Test 07/05/17 21:40 07/05/17 22:05 Urine Color YELLOW Urine Appearance CLEAR (CLEAR) Urine pH 5.0 (4.5-7.5) Urine Specific [place] 1.015 (1.000-1.030) Urine Protein NEG (NEG) Urine Glucose (UA) NEG (NEG) Urine Ketones NEG (NEG) Urine Occult Blood NEG (NEG) Urine Nitrite NEG (NEG) Urine Bilirubin NEG (NEG) Urine Urobilinogen NEG (NEG) Urine Leukocyte Esterase NEG (NEG) Urine Opiates Screen NEG (NEG) Urine Methadone, Qualitative NEG (NEG) Urine Barbiturates NEG (NEG) Urine Phencyclidine (PCP) Level NEG (NEG) Ur Amphetamine/Methamphetamine NEG (NEG) MDMA (Ecstasy) Screen NEG (NEG) Urine Benzodiazepines Screen NEG (NEG) Urine Cocaine Metabolite NEG (NEG) Urine Marijuana (THC) NEG (NEG) White Blood Count 5.26 K/uL (4.8-10.8) Red Blood Count 4.13 M/uL (4.2-5.4) Hemoglobin 10.8 g/dL (12.0-16.0) Hematocrit 35.1 % (37-47) Mean Corpuscular Volume 85.0 fL (80-100) Mean Corpuscular Hemoglobin 26.2 pg (25-34) Mean Corpuscular Hemoglobin Concent 30.8 g/dl (32-36) Platelet Count 213 K/uL (130-400) Mean Platelet Volume 10.2 fL (7.4-10.4) Neutrophils (%) (Auto) 59.5 % Lymphocytes (%) (Auto) 27.9 % Monocytes (%) (Auto) 10.5 % Eosinophils (%) (Auto) 1.9 % Basophils (%) (Auto) 0.0 % Neutrophils # (Auto) 3.13 K/uL (1.4-6.5) Lymphocytes # (Auto) 1.47 K/uL (1.2-3.4) Monocytes # (Auto) 0.55 K/uL (0.11-0.59) Eosinophils # (Auto) 0.10 K/uL (0-0.5) Basophils # (Auto) 0.00 K/uL (0-0.2) RDW Standard Deviation 72.3 fL (36.4-46.3) RDW Coefficient of Variation 23.2 % (11.5-14.5) Immature Granulocyte % (Auto) 0.2 % Immature Granulocyte # (Auto) 0.01 K/uL (0.00-0.02) Anisocytosis PRESENT Acanthocytes 1+ Anion Gap 6.0 mmol/L (3-11) Est Creatinine Clear Calc Drug Dose 131.2 ml/min Estimated GFR () 129.6 Estimated GFR (Non- 111.8 BUN/Creatinine Ratio 18.1 (10-20) Calcium Level 8.0 mg/dl (8.5-10.1) Total Bilirubin 0.2 mg/dl (0.2-1) Aspartate Amino Transf (AST/SGOT) 22 U/L (15-37) Alanine Aminotransferase (ALT/SGPT) 22 U/L (12-78) Alkaline Phosphatase 119 U/L (45-117) Total Protein 6.6 gm/dl (6.4-8.2) Albumin 3.3 gm/dl (3.4-5.0) Globulin 3.3 gm/dl (2.5-4.0) Albumin/Globulin Ratio 1.0 (0.9-2) Medications Administered Medications (Trade) Dose Ordered Sig/Rigo Route Start Time Stop Time Status Last Admin Dose Admin Sodium Chloride 1,000 ml @ 999 mls/hr Q1H1M ONCE IV 07/05/17 22:00 07/05/17 23:00 DC 07/05/17 22:13 999 MLS/HR Metoclopramide HCl (Reglan Inj) 10 mg NOW STAT IV 07/05/17 21:48 07/05/17 21:51 DC 07/05/17 22:13 10 MG Dicyclomine HCl (Bentyl Inj) 20 mg NOW ONCE IM 07/05/17 22:00 07/05/17 22:01 DC 07/05/17 22:13 20 MG Heparin Sodium (Porcine) (Heparin 100 Unit/ml 5ml Flush) 5 ml STK-MED ONCE .ROUTE 07/06/17 03:16 07/06/17 03:17 DC 07/06/17 03:16 5 ML ED Course Physical exam and history were performed. Nursing notes, EMR, and Medication List were personally reviewed. Patient appears to have nausea and vomiting for the past several weeks. She has been seen in the emergency department with this complaint recently and has been receiving IV antibiotics through the [facility]. On examination the patient does not appear toxic or with evidence of clinical dehydration. IV access was established through her port. Blood work was obtained. I did elect to perform plain films of her abdomen and chest. The patient was given 1 L IV saline, 10 mg IV Reglan, and 20 mg IM Bentyl. The patient's blood work is as above and was reviewed. She does not have a significantly elevated white blood cell count, gross anemia, bandemia, or gross electrolyte imbalance. Transaminases were not diagnostic. Urine was without evidence of infection. Her x-ray has significant gas on imaging, and I reviewed the case with my attending physician, Dr. Carter. Dr. Carter did independently evaluate the patient, and utilizing shared decision making we elected to CT scan the patient out of concern for possible bowel obstruction versus other process. The patient remained in stable condition throughout her emergency department stay. The CAT scan with IV and oral contrast was performed without difficulty, and does not show significant acute process. The patient did not have emesis here in the department throughout her stay. Overall she appears well for discharge home. She will need to follow with her GI as scheduled on the of this month, roughly 7 days from now. The patient is to continue her at home medication. She was otherwise invited back to the ER with any new, worsening, or concerning symptoms. The chart was completed utilizing [employer] Speech Voice Recognition Software. Grammatical errors, random word insertions, pronoun errors, and incomplete sentences are an occasional consequence of this system due to software limitations, ambient noise, and hardware issues. Any formal questions or concerns about the content, text, or information contained within the body of this dictation should be directly addressed to the provider for clarification. . Medical Decision Differential diagnosis: Etiologies such as gastroenteritis, food borne illness, infections, appendicitis , diverticulitis, inflammatory bowel disease, obstruction, GI bleed, biliary pathology, as well as others were entertained. Blood Pressure Screening Blood pressure disposition: Elevated BP felt to be situational Impression Primary Impression: Nausea and vomiting Departure Information Dispostion Home / Self-Care Condition GOOD Forms HOME CARE DOCUMENTATION FORM, IMPORTANT VISIT INFORMATION Patient Instructions My [facility] Additional Instructions You were seen and evaluated today on an emergency basis only. This is not a substitute for, or an effort to provide, complete comprehensive medical care. It is not possible to recognize and treat all injuries or illnesses in a single emergency department visit. 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 Continue your at-home medications. You are welcome to return to the emergency department anytime with new, worsening, or concerning symptoms.
--- NOTE | 2017-07-06 07:08 | DIAGNOSTIC IMAGING REPORT ---
ABD/PELVIS IV AND ORAL CONT CT DOSE: 1173.33 mGy.cm HISTORY: Pain N/V/D. Hx bowel resection. TECHNIQUE: Multiaxial CT images of the abdomen and pelvis were performed following the use of intravenous and oral contrast. A dose lowering technique was utilized adhering to the principles of ALARA. COMPARISON STUDY: 11/20/2015 FINDINGS: Lung bases are clear. Operative changes consistent with prior cholecystectomy. Pancreas is uniform. Liver spleen and kidneys enhance uniformly. Postoperative changes consistent with a bowel anastomosis and prior gastroplasty. This is unchanged. Having decreasing colonic fecal content. Bladder is midline. No evidence for abscess collection or obstruction. IMPRESSION: 1. Mild increase in fecal load consistent with mild to moderate fecal stasis. 2. Otherwise no acute process with stable postoperative changes as noted. The above report was generated using voice recognition software. It may contain grammatical, syntax or spelling errors. Electronically signed by: Ganga Guzman M.D. 07/06/2017 7:06 AM Dictated Date/Time: 07/06/2017 7:04 AM
== END 2017-07-06 03:20 | disposition home or self-care (01) ==
LOC: C.EDB 21:33
DX: R11.2 Nausea with vomiting, unspecified (principal); R10.2 Pelvic and perineal pain; G89.29 Other chronic pain; Z90.49 Acquired absence of other specified parts of digestive tract; Z98.84 Bariatric surgery status; F40.00 Agoraphobia, unspecified; J45.909 Unspecified asthma, uncomplicated; F31.9 Bipolar disorder, unspecified; D64.9 Anemia, unspecified; Q61.2 Polycystic kidney, adult type; F43.10 Post-traumatic stress disorder, unspecified; Z79.51 Long term (current) use of inhaled steroids; Z80.1 Family history of malignant neoplasm of trachea, bronchus and lung; Z83.3 Family history of diabetes mellitus; Z83.79 Family history of other diseases of the digestive system; Z82.49 Family history of ischemic heart disease and other diseases of the circulatory system; Z82.3 Family history of stroke

== ENCOUNTER 2017-07-10 16:26 | Emergency (ER) | payer OTHER ==
[~2017-07-10] VITALS: Ht 157.5 cm; Wt 96.5 kg
[2017-07-10 16:28] VITALS: TEMP 36.6; Ht 157.5 cm; Wt 96.5 kg
[2017-07-10] MEDS ORDERED: ONDANSETRON INJ 2 MG/ML 2 ML VIAL IV STA (16:39)
[2017-07-10] MEDS ORDERED: FAMOTIDINE 20MG/5ML IV PUSH IV STA (16:39)
--- NOTE | 2017-07-10 16:46 | EMERGENCY ROOM VISIT NOTE ---
History Report prepared by Jacqueline: Gali Leach Under the Supervision of: Dr. Lloyd Bowen M.D. First contact with patient: 16:32 Chief Complaint: ANXIETY Stated Complaint: CHEST PAIN, HIGH BLOOD PRESSURE, HIGH HEART RATE History of Present Illness The patient is a 41 year old female who presents to the Emergency Room with complaints of constant anxiety beginning today. The patient states that she has been here 4 times this month for GI concerns. Today she reports that she has been having chest pain, shortness of breath, nausea, high heart rate, and a high blood pressure. She notes that she called her PCP and after taking Tylenol and Ativan without relief they recommended she come in today. The patient denies any fever, chills, cough, congestion, urinary symptoms. She notes that she has a history of panic attack and the Ativan usually relieves her symptoms. The patient states that her father had a heart attack at 39 and also had a history of 2 strokes. She denies a history of history of cancer, blood clots, reflux, and heart disease. The patient states that she still has some abdominal discomfort and diarrhea that is not new. Source of History: patient Onset: today Position: other (global) Quality: other (anxiety) Timing: constant Associated Symptoms: + chest pain, + SOB, + nausea, + abdominal pain, + diarrhea, No fevers, No chills, No cough Review of Systems See HPI for pertinent positives and negatives. A total of ten systems were reviewed and were otherwise negative. 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 (17) PTSD (18) Tubal ligation evaluation Surgical Problems: (1) excessive skin removal (2) gastric revision procedure with gastric bypass (3) H/O colonoscopy (4) H/O esophagogastroduodenoscopy (5) H/O exploratory laparotomy (6) H/O gastric bypass (7) H/O ventral hernia repair (8) H/O wisdom tooth extraction (9) lysis of adhesions (10) S/P cholecystectomy (11) S/P endometrial ablation (12) S/P laparoscopic hysterectomy (13) S/P panniculectomy (14) S/P partial gastrectomy (15) Status post unilateral salpingo-oophorectomy (16) wedge biopsy liver Social History Problems: (1) Gastroesophageal reflux disease (2) Hyperlipidemia Family History Cancer MOTHER (lung) Diabetes mellitus FATHER FH: gallbladder disease FH: lung disease FHx: heart disease FATHER Hypertension MOTHER Stroke FATHER Social History Smoking Status: Never Smoker Alcohol Use: none Drug Use: none Marital Status: , in relationship Housing Status: lives with significant other Occupation Status: employed Current/Historical Medications Scheduled Aripiprazole (Abilify), 15 MG PO HS Clonidine Hcl (Catapres), 0.1 MG PO BID Cyanocobalamin (Cyanocobalamin), 1,000 MCG IM Q3 MONTHS Fluticasone Propionate (Flovent Hfa), 2 PUFFS INH BID Fosaprepitant Dimeglumine (Emend), 75 MG IV WK Gabapentin (Neurontin), 300 MG PO BID Lisinopril (Zestril), 10 MG PO DAILY Mirtazapine (Remeron), 15 MG PO HS Pediatric Multiple Vitamin W/ (Flintstones Gummies), 1 TAB PO BID Potassium Chloride Microencaps (Potassium Chloride Er), 20 MEQ PO DAILY Sertraline Hcl (Zoloft), 100 MG PO DAILY Topiramate (Topamax), 100 MG PO BID Zolpidem Tartrate (Zolpidem Tartrate), 10 MG PO HS Scheduled PRN Acetaminophen (Tylenol), 1,000 MG PO Q6H PRN for Pain Albuterol Sulfate (Proventil Hfa), 2 PUFFS INH Q4H PRN for SOB/Wheezing Lorazepam (Ativan), 1 MG PO TID PRN for Anxiety Ondansetron (Ondansetron Odt), 8 MG PO Q8 PRN for Nausea Rizatriptan Benzoate (Maxalt), 10 MG PO UD PRN for Migraine Triamcinolone Acet (Aristocort 0.1%), 1 APPLN TOP BID PRN for Itching Valacyclovir (Valtrex), 500 MG PO BID PRN for Outbreaks Allergies Coded Allergies: Morphine (Verified Allergy, Severe, TONGUE SWELLING, difficulty breathing/ wheezing, 07/05/17) tolerates hydromorphone Colestipol (Verified Allergy, Intermediate, red rash (no itching), ) Cat Dander (Verified Allergy, Unknown, ITCHY WATERY EYES , 07/05/17) NUTS (Verified Allergy, Unknown, skin test showed nut allergy, 07/05/17) per pt, eats peanuts without issue Scopolamine (Verified Adverse Reaction, Severe, Seizure, 07/05/17) SEIZURES ONLY WHEN COMBINED W/ WELLBUTRIN. Promethazine (Verified Adverse Reaction, Intermediate, "CAN'T SIT STILL", 07/05/17) Bupropion (Verified Adverse Reaction, Unknown, Seizure, 07/05/17) SEIZURES WHEN WELLBUTRIN IS COMBINED W/ SCOPALAMINE. Physical Exam Vital Signs Date Time Temp Pulse Resp B/P (MAP) Pulse Ox O2 Delivery O2 Flow Rate FiO2 07/10/17 19:04 62 20 167/100 100 07/10/17 17:38 60 20 177/96 98 Room Air 07/10/17 17:03 67 07/10/17 16:51 99 Room Air 07/10/17 16:28 36.6 72 18 190/111 100 Room Air Physical Exam GENERAL: Awake, alert, well-appearing, in no distress HENT: Normocephalic, atraumatic. Oropharynx unremarkable. EYES: Normal conjunctiva. Sclera non-icteric. NECK: Supple. No nuchal rigidity. FROM. No JVD. RESPIRATORY: Clear to auscultation. CARDIAC: Regular rate, normal rhythm. Extremities warm and well perfused. Pulses equal. ABDOMEN: Soft, non-distended. Mild epigastric tenderness to palpation. No rebound or guarding. No masses. RECTAL: Deferred. MUSCULOSKELETAL: Chest examination reveals no tenderness. The back is symmetrical on inspection without obvious abnormality. There is no CVA tenderness to palpation. No joint edema. LOWER EXTREMITIES: Calves are equal size bilaterally and non-tender. No edema. No discoloration. NEURO: Normal sensorium. No sensory or motor deficits noted. SKIN: No rash or jaundice noted. Medical Decision & Procedures ER Provider Diagnostic Interpretation: X-ray: Per my interpretation, radiologist review. CHEST ONE VIEW PORTABLE FINDINGS: Left subclavian Mediport terminates in the lower SVC. Atherosclerosis of aortic arch. Cardiac silhouette mildly enlarged. Nodule at the left lung base is likely calcified and representing a calcified granuloma. Lungs and pleural spaces otherwise clear. Degenerative changes of the thoracic spine. Upper abdomen normal. IMPRESSION: 1. Mild cardiomegaly. Otherwise no acute cardiopulmonary disease. Electronically signed by: Naveed Rich M.D. 07/10/2017 5:14 PM Dictated Date/Time: 07/10/2017 5:13 PM Laboratory Results 07/10/17 17:20 Red Blood Count 4.04, Mean Corpuscular Volume 84.9, Mean Corpuscular Hemoglobin 27.0, Mean Corpuscular Hemoglobin Concent 31.8, Mean Platelet Volume 10.0, Neutrophils (%) (Auto) 72.1, Lymphocytes (%) (Auto) 17.7, Monocytes (%) (Auto) 8.6, Eosinophils (%) (Auto) 1.4, Basophils (%) (Auto) 0.0, Neutrophils # (Auto) 4.64, Lymphocytes # (Auto) 1.14, Monocytes # (Auto) 0.55, Eosinophils # (Auto) 0.09, Basophils # (Auto) 0.00 07/10/17 17:20 Test 07/10/17 16:55 07/10/17 17:20 Urine Color YELLOW Urine Appearance CLOUDY (CLEAR) Urine pH 6.5 (4.5-7.5) Urine Specific Fowler 1.009 (1.000-1.030) Urine Protein NEG (NEG) Urine Glucose (UA) NEG (NEG) Urine Ketones NEG (NEG) Urine Occult Blood NEG (NEG) Urine Nitrite NEG (NEG) Urine Bilirubin NEG (NEG) Urine Urobilinogen NEG (NEG) Urine Leukocyte Esterase NEG (NEG) Urine WBC (Auto) 0 /hpf (0-5) Urine RBC (Auto) 0-4 /hpf (0-4) Urine Hyaline Casts (Auto) 0 /lpf (0-5) Urine Epithelial Cells (Auto) 5-10 /lpf (0-5) Urine Bacteria (Auto) NEG (NEG) White Blood Count 6.43 K/uL (4.8-10.8) Red Blood Count 4.04 M/uL (4.2-5.4) Hemoglobin 10.9 g/dL (12.0-16.0) Hematocrit 34.3 % (37-47) Mean Corpuscular Volume 84.9 fL (80-100) Mean Corpuscular Hemoglobin 27.0 pg (25-34) Mean Corpuscular Hemoglobin Concent 31.8 g/dl (32-36) Platelet Count 186 K/uL (130-400) Mean Platelet Volume 10.0 fL (7.4-10.4) Neutrophils (%) (Auto) 72.1 % Lymphocytes (%) (Auto) 17.7 % Monocytes (%) (Auto) 8.6 % Eosinophils (%) (Auto) 1.4 % Basophils (%) (Auto) 0.0 % Neutrophils # (Auto) 4.64 K/uL (1.4-6.5) Lymphocytes # (Auto) 1.14 K/uL (1.2-3.4) Monocytes # (Auto) 0.55 K/uL (0.11-0.59) Eosinophils # (Auto) 0.09 K/uL (0-0.5) Basophils # (Auto) 0.00 K/uL (0-0.2) RDW Standard Deviation 69.7 fL (36.4-46.3) RDW Coefficient of Variation 22.6 % (11.5-14.5) Immature Granulocyte % (Auto) 0.2 % Immature Granulocyte # (Auto) 0.01 K/uL (0.00-0.02) Anisocytosis PRESENT Microcytosis PRESENT Anion Gap 7.0 mmol/L (3-11) Est Creatinine Clear Calc Drug Dose 128.1 ml/min Estimated GFR () 128.9 Estimated GFR (Non- 111.2 BUN/Creatinine Ratio 15.2 (10-20) Calcium Level 8.0 mg/dl (8.5-10.1) Total Bilirubin 0.2 mg/dl (0.2-1) Direct Bilirubin < 0.1 mg/dl (0-0.2) Aspartate Amino Transf (AST/SGOT) 22 U/L (15-37) Alanine Aminotransferase (ALT/SGPT) 24 U/L (12-78) Alkaline Phosphatase 117 U/L (45-117) Troponin I < 0.015 ng/ml (0-0.045) Total Protein 6.5 gm/dl (6.4-8.2) Albumin 3.4 gm/dl (3.4-5.0) Lipase 229 U/L (73-393) Laboratory results reviewed by me Medications Administered Medications (Trade) Dose Ordered Sig/Rigo Route Start Time Stop Time Status Last Admin Dose Admin Ondansetron HCl (Zofran Inj) 4 mg NOW STAT IV 07/10/17 16:39 18 16:43 DC 07/10/17 17:31 4 MG Famotidine (Pepcid 20mg Iv Push) 20 mg NOW STAT IV 07/10/17 16:39 07/10/17 16:43 DC 07/10/17 17:31 20 MG Lorazepam (Ativan Tab) 1 mg NOW STAT SL 07/10/17 18:24 07/10/17 18:26 DC 07/10/17 18:34 1 MG Heparin Sodium (Porcine) (Heparin 100 Unit/ml 5ml Flush) 5 ml STK-MED ONCE .ROUTE 07/10/17 18:55 07/10/17 18:56 DC 07/10/17 19:00 5 ML ECG Indication: chest pain Rate (beats per minute): 69 Rhythm: normal sinus Findings: no acute ischemic change, other (normal axis) ED Course 1632: The patient was evaluated in room B12. A complete history and physical exam was performed. 1801: I reevaluated and updated the patient. 1838: I reevaluated the patient. Discussed results and discharge instructions: She verbalized understanding and agreement. The patient is ready for discharge. Medical Decision I reviewed the patient's past medical history, medications, and the nursing notes as described above. The patient's presentation and history were concerning for ACS, pneumonia, bronchitis, bronchitis, PE, dissection, panic attack. The patient is a 41-year-old woman with a past medical history of anxiety and depression presents emergency Department with chest pain and shortness of breath per history of present illness. On arrival the patient is in no acute distress, afebrile stable vital signs. EKG is unremarkable. Labs unremarkable including WBC and troponin within normal limits. Chest x-ray negative for pneumonia. Heart score of 2, low risk, ACS not likely given reassuring w/u after >6 hours of sx. PERC negative. Patient is well-appearing, emergent process not likely. Findings and plan for follow-up reviewed with patient. Patient agreeable and d/c'd per discharge instructions. Medication Reconcilliation Current Medication List: was personally reviewed by me Blood Pressure Screening Patient's blood pressure: Elevated blood pressure Blood pressure disposition: Referred to PCP Impression Primary Impression: Substernal chest pain Additional Impression: Shortness of breath Scribe Attestation The scribe's documentation has been prepared under my direction and personally reviewed by me in its entirety. I confirm that the note above accurately reflects all work, treatment, procedures, and medical decision making performed by me. Departure Information Dispostion Home / Self-Care Referrals Marivel Harrell MD (PCP) Patient Instructions Anxiety Body Response, Anxiety Disorder, ED Chest Pain Atypical Unkn Cause, ED Dyspnea Shortness of Breath, My [facility] Additional Instructions Please follow up with your primary care physician in the next 1-3 days for re- evaluation. You the cause of your symptoms is unclear at this time but may be due to your anxiety. Otherwise, your exam, EKG, chest xray, and lab results did not show signs of an emergent condition at this time. Return to the emergency department for worsening symptoms as described in the accompanying instructions. Problem Qualifiers
[2017-07-10 16:51] VITALS: O2SAT 99
[2017-07-10 17:04] LABS: URINE APPEARANCE CLOUDY (CLEAR); URINE BILIRUBIN NEG (NEG); URINE COLOR YELLOW; URINE NITRITE NEG (NEG); URINE PH 6.5 (4.5-7.5); URINE SPECIFIC GRAVITY 1.009 (1.000-1.030); UROBILINOGEN NEG (NEG); ZZUR CULT IF INDIC CLEAN CATCH NO
[2017-07-10 17:07] LABS: MANUAL MICROSCOPIC REQUIRED? NO; REVIEW REQ? NO
--- NOTE | 2017-07-10 17:15 | DIAGNOSTIC IMAGING REPORT ---
CHEST ONE VIEW PORTABLE CLINICAL HISTORY: 41 years-old Female presenting with CHEST PAIN. TECHNIQUE: Portable upright AP view of the chest was obtained. COMPARISON: 07/05/2017. FINDINGS: Left subclavian Mediport terminates in the lower SVC. Atherosclerosis of aortic arch. Cardiac silhouette mildly enlarged. Nodule at the left lung base is likely calcified and representing a calcified granuloma. Lungs and pleural spaces otherwise clear. Degenerative changes of the thoracic spine. Upper abdomen normal. IMPRESSION: 1. Mild cardiomegaly. Otherwise no acute cardiopulmonary disease. Electronically signed by: Naveed Rich M.D. 07/10/2017 5:14 PM Dictated Date/Time: 07/10/2017 5:13 PM
[2017-07-10 17:34] LABS: EOS % 1.4 %; HEMATOCRIT 34.3 % (37-47); IG% 0.2 %; LYMPH % 17.7 %; LYMPH ABS # 1.14 K/uL (1.2-3.4); MEAN CELL VOLUME 84.9 fL (80-100); MEAN CORPUSCULAR HGB CONC 31.8 g/dl (32-36); MONO % 8.6 %; NEUT % 72.1 %; PLATELET COUNT 186 K/uL (130-400); RED BLOOD COUNT 4.04 M/uL (4.2-5.4); WHITE BLOOD COUNT 6.43 K/uL (4.8-10.8)
[2017-07-10 17:52] LABS: ALT/SGPT 24 U/L (12-78); AST/SGOT 22 U/L (15-37); BLOOD UREA NITROGEN 10 mg/dl (7-18); BUN/CREATININE RATIO 15.2 (10-20); CARBON DIOXIDE 23 mmol/L (21-32); CHLORIDE 112 mmol/L (98-107); CREATININE 0.62 mg/dl (0.60-1.20); GLUCOSE 72 mg/dl (70-99); POTASSIUM 4.1 mmol/L (3.5-5.1); SODIUM 142 mmol/L (136-145)
[2017-07-10 17:57] LABS: ALKALINE PHOSPHATASE 117 U/L (45-117)
[2017-07-10 18:03] LABS: ANISOCYTOSIS PRESENT; COMPLETE YES; MICROCYTOSIS PRESENT
[2017-07-10] MEDS ORDERED: LORAZEPAM 1 MG TAB SL STA (18:24)
[2017-07-10 19:04] VITALS: BP 167/100; PULSE 62; O2SAT 100
[2017-07-11] MEDS ORDERED: CLON0.1T12 PO (12:13)
[2017-07-11] MEDS ORDERED: LISI-461 PO (12:13)
[2017-07-11] MEDS ORDERED: TOPI100T20 PO (13:24)
[2017-07-11] MEDS ORDERED: ATV/1 PO (14:23)
[2017-07-11] MEDS ORDERED: GABA-113 PO (14:23)
[2017-07-11] MEDS ORDERED: ZFRODT/8 PO (15:40)
[2017-07-11] MEDS ORDERED: PEDICHW53 PO (16:36)
[2017-07-11] MEDS ORDERED: [UNRECOGNIZED DRUG - CODE] IV (16:36)
[2017-07-11] MEDS ORDERED: ALBUAER INH (16:36)
[2017-07-11] MEDS ORDERED: RIZA10TA18 PO (16:36)
[2017-07-11] MEDS ORDERED: POTA20TA13 PO (16:36)
[2017-07-11] MEDS ORDERED: CYNI1000 IM (16:38)
[2017-07-11] MEDS ORDERED: ABL/15 PO (18:27)
[2017-07-11] MEDS ORDERED: SERT1TAB68 PO (18:27)
[2017-07-11] MEDS ORDERED: VALA500T60 PO (20:00)
[2017-07-11] MEDS ORDERED: FLVHFA110 INH (21:00)
[2017-07-11] MEDS ORDERED: TRMCR130WC TOP (21:00)
[2017-07-11] MEDS ORDERED: ZOLP10TA6 PO (21:08)
[2017-07-11] MEDS ORDERED: ACET-1256 PO (21:35)
[2017-07-11] MEDS ORDERED: MIRT15TA3 PO (22:54)
== END 2017-07-10 19:05 | disposition home or self-care (01) ==
LOC: C.EDB 16:27
DX: R07.2 Precordial pain (principal); R06.02 Shortness of breath; F41.9 Anxiety disorder, unspecified; F31.9 Bipolar disorder, unspecified; J45.909 Unspecified asthma, uncomplicated; D64.9 Anemia, unspecified; K56.7 Ileus, unspecified; Q61.3 Polycystic kidney, unspecified; Z98.84 Bariatric surgery status; Z90.49 Acquired absence of other specified parts of digestive tract; Z98.890 Other specified postprocedural states; Z79.899 Other long term (current) drug therapy; Z88.5 Allergy status to narcotic agent; Z88.8 Allergy status to other drugs, medicaments and biological substances; Z91.018 Allergy to other foods; Z91.09 Other allergy status, other than to drugs and biological substances; Z80.9 Family history of malignant neoplasm, unspecified; Z83.3 Family history of diabetes mellitus; Z83.79 Family history of other diseases of the digestive system; Z82.49 Family history of ischemic heart disease and other diseases of the circulatory system; Z82.3 Family history of stroke

== ENCOUNTER 2017-07-11 17:01 | Emergency (ER) | payer OTHER ==
[~2017-07-11] VITALS: Ht 157.5 cm; Wt 97.6 kg
[~2017-07-11 17:01] MED LIST changes: -ABL/15 PO; -ACET-1256 PO; -FLVHFA110 INH; -MIRT15TA3 PO; -SERT1TAB68 PO; -TRMCR130WC TOP; -VALA500T60 PO; -ZOLP10TA6 PO; -[UNRECOGNIZED DRUG - CODE] IV
[2017-07-11 17:02] VITALS: TEMP 36.9; Ht 157.5 cm; Wt 97.6 kg
--- NOTE | 2017-07-11 17:24 | EMERGENCY ROOM VISIT NOTE ---
History Report prepared by Jacqueline: Bran Casas Under the Supervision of: Dr. Saurabh Adkins M.D. First contact with patient: 17:03 Stated Complaint: CHEST PAIN History of Present Illness The patient is a 41 year old female who presents to the Emergency Room with complaints of chest tightness that began last night. She rates her symptom severity a 7/10. At that time, the patient presented to the ER. She was discharged with orders to discuss her medications with her PCP. She spoke with her PCP this morning who disagreed with changing her medications and referred her back to the ER for her persistent symptoms. She is also experiencing shortness of breath and mild hypertension. Per EMS, her pressure en route was 141/70. She was given Aspirin and 2 Nitroglycerin as well. She states that nothing makes her pain better or worse. She also has a history of bipolar disorder with panic attacks. She states that she currently feels on the depressive side of her bipolar and that her current symptoms do not feel like a panic attack. She denies any loss of consciousness, palpitations, trauma, injury , or other abnormal symptoms. She has a previous history of a blood clot in her arm, and is not currently on blood thinners. Source of History: patient Onset: last night Position: chest Symptom Intensity: 7/10 Quality: other (tightness) Timing: constant Associated Symptoms: + SOB, No LOC Note: She states that she feels hypertensive. She denies any palpitations. Review of Systems See HPI for pertinent positives & negatives. A total of 10 systems reviewed and were otherwise negative. 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 (17) PTSD (18) Tubal ligation evaluation Surgical Problems: (1) excessive skin removal (2) gastric revision procedure with gastric bypass (3) H/O colonoscopy (4) H/O esophagogastroduodenoscopy (5) H/O exploratory laparotomy (6) H/O gastric bypass (7) H/O ventral hernia repair (8) H/O wisdom tooth extraction (9) lysis of adhesions (10) S/P cholecystectomy (11) S/P endometrial ablation (12) S/P laparoscopic hysterectomy (13) S/P panniculectomy (14) S/P partial gastrectomy (15) Status post unilateral salpingo-oophorectomy (16) wedge biopsy liver Social History Problems: (1) Gastroesophageal reflux disease (2) Hyperlipidemia Old medical records were reviewed. Nurse's notes were reviewed and I agree with. Family History Cancer MOTHER (lung) Diabetes mellitus FATHER FH: gallbladder disease FH: lung disease FHx: heart disease FATHER Hypertension MOTHER Stroke FATHER Social History Smoking Status: Never Smoker Alcohol Use: none Drug Use: none Marital Status: , in relationship Housing Status: lives with significant other Occupation Status: employed Current/Historical Medications Scheduled Aripiprazole (Abilify), 15 MG PO HS Clonidine Hcl (Catapres), 0.1 MG PO BID Cyanocobalamin (Cyanocobalamin), 1,000 MCG IM Q3 MONTHS Fluticasone Propionate (Flovent Hfa), 2 PUFFS INH BID Fosaprepitant Dimeglumine (Emend), 75 MG IV WK Gabapentin (Neurontin), 300 MG PO BID Lisinopril (Zestril), 10 MG PO DAILY Mirtazapine (Remeron), 15 MG PO HS Pediatric Multiple Vitamin W/ (Flintstones Gummies), 1 TAB PO BID Potassium Chloride Microencaps (Potassium Chloride Er), 20 MEQ PO DAILY Sertraline Hcl (Zoloft), 100 MG PO DAILY Topiramate (Topamax), 100 MG PO BID Zolpidem Tartrate (Zolpidem Tartrate), 10 MG PO HS Scheduled PRN Acetaminophen (Tylenol), 1,000 MG PO Q6H PRN for Pain Albuterol Sulfate (Proventil Hfa), 2 PUFFS INH Q4H PRN for SOB/Wheezing Lorazepam (Ativan), 1 MG PO TID PRN for Anxiety Ondansetron (Ondansetron Odt), 8 MG PO Q8 PRN for Nausea Rizatriptan Benzoate (Maxalt), 10 MG PO UD PRN for Migraine Triamcinolone Acet (Aristocort 0.1%), 1 APPLN TOP BID PRN for Itching Valacyclovir (Valtrex), 500 MG PO BID PRN for Outbreaks Allergies Coded Allergies: Morphine (Verified Allergy, Severe, TONGUE SWELLING, difficulty breathing/ wheezing, 07/05/17) tolerates hydromorphone Colestipol (Verified Allergy, Intermediate, red rash (no itching), ) Cat Dander (Verified Allergy, Unknown, ITCHY WATERY EYES , 07/05/17) NUTS (Verified Allergy, Unknown, skin test showed nut allergy, 07/05/17) per pt, eats peanuts without issue Scopolamine (Verified Adverse Reaction, Severe, Seizure, 07/05/17) SEIZURES ONLY WHEN COMBINED W/ WELLBUTRIN. Promethazine (Verified Adverse Reaction, Intermediate, "CAN'T SIT STILL", 07/05/17) Bupropion (Verified Adverse Reaction, Unknown, Seizure, 07/05/17) SEIZURES WHEN WELLBUTRIN IS COMBINED W/ SCOPALAMINE. Physical Exam Vital Signs Date Time Temp Pulse Resp B/P (MAP) Pulse Ox O2 Delivery O2 Flow Rate FiO2 07/11/17 21:09 75 15 156/100 96 07/11/17 20:30 67 15 170/115 96 Room Air 07/11/17 20:00 65 145/103 96 Room Air 07/11/17 19:33 70 18 153/103 95 Room Air 07/11/17 19:02 125/102 07/11/17 18:59 71 18 179/128 97 Room Air 07/11/17 18:35 70 20 173/116 96 Room Air 07/11/17 17:15 83 07/11/17 17:02 96 Room Air 07/11/17 17:02 36.9 84 23 155/89 96 Room Air Physical Exam General: Non-ill appearing middle aged female in no acute distress. HEENT: Normal cephalic atraumatic. Pupils are equal round and reactive to light. Extraocular movements are intact. Oropharynx is pink with moist mucous membranes. No swelling of the mouth lips or tongue. Neck: Supple with a midline trachea. No meningeal signs or stiffness, no JVD or bruits. No Stridor. Chest: A-port in left upper chest. Clear to auscultation bilaterally. No wheezes or rhonchi. No increased work of breathing. Heart: regular rate and rhythm. Abdomen: Soft nontender, nondistended without rebound guarding or rigidity. Extremities: No cyanosis clubbing or edema. No calf tenderness or assymetry Spine/Back. Non tender to palpation. No CVA tenderness Skin: Good turgor without rashes. Neurologic exam: Cranial nerves two through 12 are intact. Motor and sensation are intact and symmetrical throughout. Medical Decision & Procedures ER Provider Diagnostic Interpretation: Radiology results as stated below per my review and radiologist interpretation: CHEST ONE VIEW PORTABLE HISTORY: 41 years-old Female CHEST PAIN acute atypical chest pain COMPARISON: Chest radiograph 07/10/2017 TECHNIQUE: Portable AP view of the chest FINDINGS: Cardiac silhouette is again mildly enlarged, unchanged. Left subclavian Yyfmvz-m-Hjtl catheter is unchanged with distal tip in the region of the mid SVC. No pneumothorax, pleural effusion, focal airspace consolidation or overt pulmonary edema. Left lung base calcified granuloma. Bones of the chest appear grossly intact. IMPRESSION: Mild cardiomegaly without acute process. The above report was generated using voice recognition software. It may contain grammatical, syntax or spelling errors. Electronically signed by: Mp Singleton M.D. 07/11/2017 6:02 PM Dictated Date/Time: 07/11/2017 6:01 PM (CHEST FOR PE) ANGIO WITH HISTORY: 41 years-old Female presents with acute atypical chest pain TECHNIQUE: Multiple CTA images of the chest were obtained after the intravenous administration of 116 ml Optiray 320. Coronal and sagittal MIPS were obtained from the axial data set and were submitted for review. A dose lowering technique was utilized adhering to the principles of ALARA. COMPARISON: Chest radiograph of same day, CTA chest 12/27/2016. FINDINGS: CTA: Heart is normal in size without pericardial effusion. Left pectoral Nxycui-m-Kizr catheter is noted with distal tip terminating in the SVC. Thoracic aorta is normal in both course and caliber without aneurysm or dissection. The imaged proximal great vessels are patent. The pulmonary arterial tree is opacified to level of the proximal subsegmental branches and demonstrates no focal filling defects to suggest pulmonary thromboembolic disease. CT CHEST: No dominant thyroid nodule. Calcified subcarinal and left hilar lymph nodes are seen. No pathologically enlarged lymph nodes by CT size criteria. No pneumothorax or pleural effusion. Linear groundglass and consolidative opacities of the lung bases suggest atelectasis. Calcified granuloma of the left lower lobe. There is a focal ill-defined groundglass opacity of the right upper lobe, 9 x 7 mm as seen on image 182 series 4. Additional subtle 6 mm groundglass opacity of the right upper lobe noted on image 190 series 4. Peripheral ill-defined groundglass opacity measuring 12 mm is noted within the lateral segment right middle lobe on image 134 series 4. The central airways are patent. Postoperative changes at the gastroesophageal junction. Punctate calcifications are seen throughout the spleen. Prior cholecystectomy. Mild gaseous distention of the large bowel. Bones appear intact. Multilevel endplate spurring of the thoracic spine. IMPRESSION: 1. No evidence of acute aortic pathology or pulmonary thromboembolic disease. 2. Mild subsegmental bibasilar atelectasis. Two subjacent groundglass opacities of the right upper lobe as described above, largest of which measures up to 9 mm is nonspecific and may reflect a mild pneumonitis. As a precautionary measure, follow-up guidelines are provided below. 3. Prior granulomatous disease. 4. Additional findings as above. Please refer to below summary of Fleischner criteria recommendations for follow-up of incidental CT nodules (Ortiz Bergeron, Guidelines for management of small pulmonary nodules detected on CT scans: A statement from the Fleischner Society, Radiology 237: [id number].) Note: newly detected indeterminate nodule in persons 35 years of age or older. * Low risk patients: minimal or absent history of smoking and/or other known risk factors * high risk patients: history of smoking or of other known risk factors (e.g. first degree relative with lung cancer, or exposure to asbestos, radon, uranium) * if a nodule up to 8 mm is partly solid or is ground glass further follow-up is required after 24 months to exclude possible slow growing adenocarcinoma (AIRAM) SUBSOLID NODULES Multiple subsolid nodules * nodule size <6 mm - follow-up CT at 3-6 months, consider further follow-up at 2 and 4 years if stable * nodule size >=6 mm - follow-up CT at 3-6 months, subsequent management based on the most suspicious nodule(s) The above report was generated using voice recognition software. It may contain grammatical, syntax or spelling errors. Electronically signed by: Mp Singleton M.D. 07/11/2017 7:34 PM Dictated Date/Time: 07/11/2017 7:[address] OF THE ABDOMEN AND PELVIS WITH CONTRAST CLINICAL HISTORY: Epigastric pain. COMPARISON STUDY: CT of the abdomen and pelvis July 06, 2017 TECHNIQUE: Following IV administration of 116 mL of Optiray-320, axial images of the abdomen and pelvis were obtained from the lung bases to the proximal femurs. Images were reviewed in the axial, sagittal, and coronal planes. IV contrast was administered without complication. A dose lowering technique was utilized adhering to the principles of ALARA. CT DOSE: 1459.76 mGy.cm FINDINGS: The chest CT will be reported separately. Mild biliary ductal dilatation is unchanged and likely related to prior cholecystectomy. There is no pancreatic ductal dilatation or peripancreatic infiltration. Findings suggestive of gastric bypass. The excluded stomach has likely been resected. There are calcified granulomas within the spleen. Adrenal glands and kidneys are normal. There is no hydronephrosis. There is mild gaseous distention of the colon. A tlwc-if-rblcaarv amount of stool within the colon is noted. There is no evidence for a bowel obstruction. The appendix is unremarkable. A prominent fluid-filled loop of small bowel within the pelvis is at a small bowel to small bowel anastomosis. There is no convincing evidence for a bowel obstruction given lack of upstream dilatation. Major vessels of the abdomen and pelvis are patent. There is no abscess or lymphadenopathy. Skeletal structures are unremarkable. IMPRESSION: 1. No acute process within the abdomen or pelvis. 2. Mild gaseous distention of the colon which contains a vnvi-gl-tdnqylyx amount of stool. No evidence for a bowel obstruction. 3. Postoperative findings within the abdomen and pelvis, as described above. Electronically signed by: Jose L Strong M.D. 07/11/2017 7:41 PM Dictated Date/Time: 07/11/2017 7:25 PM Laboratory Results 07/11/17 17:27 Red Blood Count 4.07, Mean Corpuscular Volume 84.5, Mean Corpuscular Hemoglobin 26.8, Mean Corpuscular Hemoglobin Concent 31.7, Mean Platelet Volume 9.9, Neutrophils (%) (Auto) 69.7, Lymphocytes (%) (Auto) 21.6, Monocytes (%) (Auto) 6.9, Eosinophils (%) (Auto) 1.4, Basophils (%) (Auto) 0.2, Neutrophils # (Auto) 3.95, Lymphocytes # (Auto) 1.22, Monocytes # (Auto) 0.39, Eosinophils # (Auto) 0.08, Basophils # (Auto) 0.01 07/11/17 17:27 Test 07/11/17 17:27 07/11/17 17:38 White Blood Count 5.66 K/uL (4.8-10.8) Red Blood Count 4.07 M/uL (4.2-5.4) Hemoglobin 10.9 g/dL (12.0-16.0) Hematocrit 34.4 % (37-47) Mean Corpuscular Volume 84.5 fL (80-100) Mean Corpuscular Hemoglobin 26.8 pg (25-34) Mean Corpuscular Hemoglobin Concent 31.7 g/dl (32-36) Platelet Count 180 K/uL (130-400) Mean Platelet Volume 9.9 fL (7.4-10.4) Neutrophils (%) (Auto) 69.7 % Lymphocytes (%) (Auto) 21.6 % Monocytes (%) (Auto) 6.9 % Eosinophils (%) (Auto) 1.4 % Basophils (%) (Auto) 0.2 % Neutrophils # (Auto) 3.95 K/uL (1.4-6.5) Lymphocytes # (Auto) 1.22 K/uL (1.2-3.4) Monocytes # (Auto) 0.39 K/uL (0.11-0.59) Eosinophils # (Auto) 0.08 K/uL (0-0.5) Basophils # (Auto) 0.01 K/uL (0-0.2) RDW Standard Deviation 69.9 fL (36.4-46.3) RDW Coefficient of Variation 22.7 % (11.5-14.5) Immature Granulocyte % (Auto) 0.2 % Immature Granulocyte # (Auto) 0.01 K/uL (0.00-0.02) Anisocytosis PRESENT Prothrombin Time 10.8 SECONDS (9.0-12.0) Prothromb Time International Ratio 1.0 (0.9-1.1) Activated Partial Thromboplast Time 29.3 SECONDS (21.0-31.0) Partial Thromboplastin Ratio 1.1 D-Dimer 580 ug/L FEU (0-500) Anion Gap 5.0 mmol/L (3-11) Est Creatinine Clear Calc Drug Dose 119.3 ml/min Estimated GFR () 125.7 Estimated GFR (Non- 108.4 BUN/Creatinine Ratio 19.6 (10-20) Calcium Level 8.2 mg/dl (8.5-10.1) Total Bilirubin 0.2 mg/dl (0.2-1) Direct Bilirubin < 0.1 mg/dl (0-0.2) Aspartate Amino Transf (AST/SGOT) 21 U/L (15-37) Alanine Aminotransferase (ALT/SGPT) 23 U/L (12-78) Alkaline Phosphatase 119 U/L (45-117) Total Creatine Kinase 86 U/L (26-192) Creatine Kinase MB 0.6 ng/ml (0.5-3.6) Creatine Kinase MB Ratio 0.7 (0-3.0) Total Protein 6.7 gm/dl (6.4-8.2) Albumin 3.3 gm/dl (3.4-5.0) Lipase 241 U/L (73-393) Human Chorionic Gonadotropin, Qual NEG (NEG) Bedside Troponin I < 0.030 ng/ml (0-0.045) Laboratory studies as stated above per my review. Medications Administered Medications (Trade) Dose Ordered Sig/Rigo Route Start Time Stop Time Status Last Admin Dose Admin Hydromorphone HCl (Dilaudid Inj) 1 mg NOW STAT IV 07/11/17 18:06 07/11/17 18:07 DC 07/11/17 18:36 1 MG Heparin Sodium (Porcine) (Heparin 100 Unit/ml 5ml Flush) 5 ml STK-MED ONCE .ROUTE 07/11/17 20:54 07/11/17 20:55 DC 07/11/17 20:54 5 ML ECG Indication: chest pain Rate (beats per minute): 90 Rhythm: normal sinus Findings: nonspecific-ST abn, no ectopy Comparison ECG Date: Jul 10, 2017 Change: no significant change ED Course 1703: Past medical records reviewed. The patient was evaluated in room A2, and a complete history and physical examination were performed. En route per EMS, her ECG was unremarkable with occasional PVCs and without acute ischemic changes. 1800: The patient's D-Dimer was elevated, so she will receive a CT of her chest. 1804: The patient is still having pain. 1805: Ordered Dilaudid Inj 1 mg IV 1842: Upon reevaluation, she is feeling better. However, she states that her pain is now more in her epigastrium. 2008: I spoke with Dr. Adame of the [facility] at this time about the patient. He does not believe that the patient needs to be evaluated as an inpatient. He recommends that she has an outpatient cardiac stress test done in the near future. 2038: I updated the patient at this time. She is agreeable to the stress test in the near future. 2110: Upon reevaluation, the patient is resting. I discussed the results and treatment plan with her. She verbalized agreement of the treatment plan. The patient was discharged home. Medical Decision Differentials include, but are not limited to; ACS, arrhythmia, PE, anxiety, hypertensive emergency, and electrolyte or metabolic abnormality. This patient comes in as described above. She is complaining of chest pain. She was seen here last night with similar complaints and blood pressure was high. She attempted to follow up with her primary doctor who advised she come to the ER today. Her blood pressure was very high at home apparently. She does have a history of anxiety as well. She was brought in by ambulance and was given aspirin as well as nitroglycerin and her blood pressure came down 141/ 70. She appears comfortable. She has a A port in and she does receive medications for chronic nausea related to gastroparesis. EKG does not show any acute ischemic changes or ectopy seen. Her troponin is not elevated but having symptoms since yesterday which makes cardiac disease unlikely. Chest xray is unremarkable. Blood work was unremarkable with the exception of a mildly elevated d-dimer. In light of this, I did a CTA of her chest as well as the abdomen as she has epigastric at times. This was unremarkable. She did receive IV Dilaudid while she was here. I did consult Dr. Bravo to see her in the emergency department for possible admission/observation. He does not feel that she needs to stay and arranged with our spring encaser for a stress test as an outpatient suite. The patient is happy with plan and will be discharged to home. I encouraged to return if any new problems or concerns. Medication Reconcilliation Current Medication List: was personally reviewed by me Blood Pressure Screening Patient's blood pressure: Elevated blood pressure Blood pressure disposition: Referred to PCP Consults Time Called: 2004 Consulting Physician: Dr. Deep CLARK Returned Call: 2008 We discussed the patient's case. He believes that the patient should be discharged with a cardiac stress test set up for the near future. Impression Primary Impression: Precordial chest pain Scribe Attestation The scribe's documentation has been prepared under my direction and personally reviewed by me in its entirety. I confirm that the note above accurately reflects all work, treatment, procedures, and medical decision making performed by me. Departure Information Dispostion Home / Self-Care Referrals Marivel Harrell MD (PCP) Forms Call Back Authorization, HOME CARE DOCUMENTATION FORM, IMPORTANT VISIT INFORMATION Additional Instructions Rest Drink plenty of fluids Return if: Increasing pain, shortness of breath, worsening symptoms, any new problems or concerns Follow-up this week for a stress test our case management team will help you arrange this.
[2017-07-11 17:47] LABS: BASO % 0.2 %; BASO ABS # 0.01 K/uL (0-0.2); EOS % 1.4 %; HEMATOCRIT 34.4 % (37-47); IG% 0.2 %; LYMPH % 21.6 %; LYMPH ABS # 1.22 K/uL (1.2-3.4); MEAN CELL VOLUME 84.5 fL (80-100); MEAN CORPUSCULAR HEMOGLOBIN 26.8 pg (25-34); MEAN CORPUSCULAR HGB CONC 31.7 g/dl (32-36); MEAN PLATELET VOLUME 9.9 fL (7.4-10.4); MONO % 6.9 %; NEUT % 69.7 %; PLATELET COUNT 180 K/uL (130-400); RED BLOOD COUNT 4.07 M/uL (4.2-5.4); WHITE BLOOD COUNT 5.66 K/uL (4.8-10.8)
[2017-07-11 17:55] LABS: PARTIAL THROMBOPLASTIN RATIO 1.1; PROTHROMBIN TIME (PATIENT) 10.8 SECONDS (9.0-12.0)
--- NOTE | 2017-07-11 18:03 | DIAGNOSTIC IMAGING REPORT ---
CHEST ONE VIEW PORTABLE HISTORY: 41 years-old Female CHEST PAIN acute atypical chest pain COMPARISON: Chest radiograph 07/10/2017 TECHNIQUE: Portable AP view of the chest FINDINGS: Cardiac silhouette is again mildly enlarged, unchanged. Left subclavian Wtmfdk-g-Zvrw catheter is unchanged with distal tip in the region of the mid SVC. No pneumothorax, pleural effusion, focal airspace consolidation or overt pulmonary edema. Left lung base calcified granuloma. Bones of the chest appear grossly intact. IMPRESSION: Mild cardiomegaly without acute process. The above report was generated using voice recognition software. It may contain grammatical, syntax or spelling errors. Electronically signed by: Mp Singleton M.D. 07/11/2017 6:02 PM Dictated Date/Time: 07/11/2017 6:01 PM
[2017-07-11] MEDS ORDERED: HYDROmorphone INJ 1 MG/ML SYR IV STA (18:06)
[2017-07-11 18:08] LABS: BLOOD UREA NITROGEN 13 mg/dl (7-18); CREATININE 0.67 mg/dl (0.60-1.20); GLUCOSE 80 mg/dl (70-99)
[2017-07-11 18:09] LABS: ALT/SGPT 23 U/L (12-78); BUN/CREATININE RATIO 19.6 (10-20); CALCIUM 8.2 mg/dl (8.5-10.1); CARBON DIOXIDE 23 mmol/L (21-32); CHLORIDE 111 mmol/L (98-107); POTASSIUM 3.9 mmol/L (3.5-5.1); PREG INTERNAL NEGATIVE QC NEG CLEAR BACKGROUND; PREG INTERNAL POSITIVE QC POS CONTROL LINE; SODIUM 139 mmol/L (136-145)
[2017-07-11 18:14] LABS: ALKALINE PHOSPHATASE 119 U/L (45-117); AST/SGOT 21 U/L (15-37); CKMB/CK RATIO 0.7 (0-3.0)
[2017-07-11] MEDS ORDERED: OPTIRAY 320 IV PRN (18:15)
[2017-07-11] MEDS ORDERED: ABL/15 PO (18:27)
[2017-07-11] MEDS ORDERED: SERT1TAB68 PO (18:27)
--- NOTE | 2017-07-11 19:36 | DIAGNOSTIC IMAGING REPORT ---
(CHEST FOR PE) ANGIO WITH HISTORY: 41 years-old Female presents with acute atypical chest pain TECHNIQUE: Multiple CTA images of the chest were obtained after the intravenous administration of 116 ml Optiray 320. Coronal and sagittal MIPS were obtained from the axial data set and were submitted for review. A dose lowering technique was utilized adhering to the principles of ALARA. COMPARISON: Chest radiograph of same day, CTA chest 12/27/2016. FINDINGS: CTA: Heart is normal in size without pericardial effusion. Left pectoral Tvamve-i-Vvmm catheter is noted with distal tip terminating in the SVC. Thoracic aorta is normal in both course and caliber without aneurysm or dissection. The imaged proximal great vessels are patent. The pulmonary arterial tree is opacified to level of the proximal subsegmental branches and demonstrates no focal filling defects to suggest pulmonary thromboembolic disease. CT CHEST: No dominant thyroid nodule. Calcified subcarinal and left hilar lymph nodes are seen. No pathologically enlarged lymph nodes by CT size criteria. No pneumothorax or pleural effusion. Linear groundglass and consolidative opacities of the lung bases suggest atelectasis. Calcified granuloma of the left lower lobe. There is a focal ill-defined groundglass opacity of the right upper lobe, 9 x 7 mm as seen on image 182 series 4. Additional subtle 6 mm groundglass opacity of the right upper lobe noted on image 190 series 4. Peripheral ill-defined groundglass opacity measuring 12 mm is noted within the lateral segment right middle lobe on image 134 series 4. The central airways are patent. Postoperative changes at the gastroesophageal junction. Punctate calcifications are seen throughout the spleen. Prior cholecystectomy. Mild gaseous distention of the large bowel. Bones appear intact. Multilevel endplate spurring of the thoracic spine. IMPRESSION: 1. No evidence of acute aortic pathology or pulmonary thromboembolic disease. 2. Mild subsegmental bibasilar atelectasis. Two subjacent groundglass opacities of the right upper lobe as described above, largest of which measures up to 9 mm is nonspecific and may reflect a mild pneumonitis. As a precautionary measure, follow-up guidelines are provided below. 3. Prior granulomatous disease. 4. Additional findings as above. Please refer to below summary of Fleischner criteria recommendations for follow-up of incidental CT nodules (Ortiz Bergeron, Guidelines for management of small pulmonary nodules detected on CT scans: A statement from the Fleischner Society, Radiology 237: [phone].) Note: newly detected indeterminate nodule in persons 35 years of age or older. * Low risk patients: minimal or absent history of smoking and/or other known risk factors * high risk patients: history of smoking or of other known risk factors (e.g. first degree relative with lung cancer, or exposure to asbestos, radon, uranium) * if a nodule up to 8 mm is partly solid or is ground glass further follow-up is required after 24 months to exclude possible slow growing adenocarcinoma (AIRAM) SUBSOLID NODULES Multiple subsolid nodules * nodule size <6 mm - follow-up CT at 3-6 months, consider further follow-up at 2 and 4 years if stable * nodule size >=6 mm - follow-up CT at 3-6 months, subsequent management based on the most suspicious nodule(s) The above report was generated using voice recognition software. It may contain grammatical, syntax or spelling errors. Electronically signed by: Mp Singleton M.D. 07/11/2017 7:34 PM Dictated Date/Time: 07/11/2017 7:24 PM
[2017-07-11 19:37] LABS: ANISOCYTOSIS PRESENT; COMPLETE YES
--- NOTE | 2017-07-11 19:43 | DIAGNOSTIC IMAGING REPORT ---
CT OF THE ABDOMEN AND PELVIS WITH CONTRAST CLINICAL HISTORY: Epigastric pain. COMPARISON STUDY: CT of the abdomen and pelvis July 06, 2017 TECHNIQUE: Following IV administration of 116 mL of Optiray-320, axial images of the abdomen and pelvis were obtained from the lung bases to the proximal femurs. Images were reviewed in the axial, sagittal, and coronal planes. IV contrast was administered without complication. A dose lowering technique was utilized adhering to the principles of ALARA. CT DOSE: 1459.76 mGy.cm FINDINGS: The chest CT will be reported separately. Mild biliary ductal dilatation is unchanged and likely related to prior cholecystectomy. There is no pancreatic ductal dilatation or peripancreatic infiltration. Findings suggestive of gastric bypass. The excluded stomach has likely been resected. There are calcified granulomas within the spleen. Adrenal glands and kidneys are normal. There is no hydronephrosis. There is mild gaseous distention of the colon. A acwk-gv-[id number] amount of stool within the colon is noted. There is no evidence for a bowel obstruction. The appendix is unremarkable. A prominent fluid-filled loop of small bowel within the pelvis is at a small bowel to small bowel anastomosis. There is no convincing evidence for a bowel obstruction given lack of upstream dilatation. Major vessels of the abdomen and pelvis are patent. There is no abscess or lymphadenopathy. Skeletal structures are unremarkable. IMPRESSION: 1. No acute process within the abdomen or pelvis. 2. Mild gaseous distention of the colon which contains a vzal-wz-hgmmodqv amount of stool. No evidence for a bowel obstruction. 3. Postoperative findings within the abdomen and pelvis, as described above. Electronically signed by: Jose L Strong M.D. 07/11/2017 7:41 PM Dictated Date/Time: 07/11/2017 7:25 PM
[2017-07-11] MEDS ORDERED: VALA500T60 PO (20:00)
--- NOTE | 2017-07-11 20:35 | Medical Consult ---
Consultation Date of Consultation: Jul 11, 2017. Attending Physician: History of Present Illness 41 y/o F Hx HTN, opiate abuse, bipolar disease, obesity, asthma, gastric bypass. Pt has had epigastric/lower chest pain for 2 days. States that nothing exacerbates or relieves her symptoms. She was in the ER one day prior and DCd to f/u with her PCP. She was evaluated by her PCP and told to return to the hospital as her pain [persisted. She is pain-free at the time of medical evaluation. She denies any associated radiation, SOB, nausea with vomiting, diaphoresis or lightheadedness. Past Medical/Surgical History Medical Problems: 1) Bipolar disease 2) Obesity 3) Opiate abuse 4) PTSD 5) HTN 6) Intentional overdose 06/09 Surgical: 1) Gastric bypass 2) Salpingo-oophorectomy Family History Cancer MOTHER (lung) Diabetes mellitus FATHER FH: gallbladder disease FH: lung disease FHx: heart disease FATHER Hypertension MOTHER Stroke FATHER Father with histroy of alcoholism and NE at age 39 Social History Smoking Status: Never Smoker Drug Use: none Marital Status: , in relationship Housing Status: lives with significant other Occupation Status: employed Allergies Coded Allergies: Morphine (Verified Allergy, Severe, TONGUE SWELLING, difficulty breathing/ wheezing, 07/05/17) tolerates hydromorphone Colestipol (Verified Allergy, Intermediate, red rash (no itching), ) Cat Dander (Verified Allergy, Unknown, ITCHY WATERY EYES , 07/05/17) NUTS (Verified Allergy, Unknown, skin test showed nut allergy, 07/05/17) per pt, eats peanuts without issue Scopolamine (Verified Adverse Reaction, Severe, Seizure, 07/05/17) SEIZURES ONLY WHEN COMBINED W/ WELLBUTRIN. Promethazine (Verified Adverse Reaction, Intermediate, "CAN'T SIT STILL", 07/05/17) Bupropion (Verified Adverse Reaction, Unknown, Seizure, 07/05/17) SEIZURES WHEN WELLBUTRIN IS COMBINED W/ SCOPALAMINE. Current Inpatient Medications Current Inpatient Medications Medications (Trade) Dose Ordered Sig/Rigo Route Start Time Stop Time Status Last Admin Dose Admin Ioversol (Optiray 320) 100 ml UD PRN IV 07/11/17 18:15 07/15/17 18:14 Review of Systems Constitutional: No fever, No chills, No sweats Eyes: No worsening of vision ENT: No hearing loss, No unusual epistaxis, No nasal symptoms Respiratory: No cough, No sputum, No wheezing Cardiovascular: + chest pain (epigastric/lower chest) Abdomen: + pain (epigastric), No nausea Musculoskeletal: No joint pain Genitourinary - Female: No dysuria, No urinary frequency, No urinary urgency Neurologic: No memory loss, No paralysis, No weakness Psychiatric: No depression symptoms Endocrine: No fatigue Hematologic / Lymphatic: No abnormal bleeding/bruising Integumentary: No rash Allergic / Immunologic: No environmental allergies Physical Exam Date Time Temp Pulse Resp B/P (MAP) Pulse Ox O2 Delivery O2 Flow Rate FiO2 07/11/17 19:33 70 18 153/103 95 Room Air 07/11/17 19:02 125/102 07/11/17 18:59 71 18 179/128 97 Room Air 07/11/17 18:35 70 20 173/116 96 Room Air 07/11/17 17:15 83 07/11/17 17:02 96 Room Air 07/11/17 17:02 36.9 84 23 155/89 96 Room Air General Appearance: WD/WN, no apparent distress Head: normocephalic Eyes: normal inspection ENT: normal ENT inspection, hearing grossly normal, TMs normal Neck: supple, no JVD Respiratory/Chest: chest non-tender, lungs clear, normal breath sounds Cardiovascular: regular rate, rhythm, no edema, no gallop Abdomen/GI: normal bowel sounds, non tender, soft Back: normal inspection, no CVA tenderness Extremities/Musculoskelatal: normal inspection, no calf tenderness, normal capillary refill Neurologic/Psych: foundry hand II-XII nml as tested, no motor/sensory deficits, alert, oriented x 3 Skin: normal color, warm/dry, no rash Laboratory Results Last 24 Hours Test 07/11/17 17:12 07/11/17 17:27 07/11/17 17:38 Creatine Kinase MB Ratio 0.7 White Blood Count 5.66 K/uL Red Blood Count 4.07 M/uL Hemoglobin 10.9 g/dL Hematocrit 34.4 % Mean Corpuscular Volume 84.5 fL Mean Corpuscular Hemoglobin 26.8 pg Mean Corpuscular Hemoglobin Concent 31.7 g/dl Platelet Count 180 K/uL Mean Platelet Volume 9.9 fL Neutrophils (%) (Auto) 69.7 % Lymphocytes (%) (Auto) 21.6 % Monocytes (%) (Auto) 6.9 % Eosinophils (%) (Auto) 1.4 % Basophils (%) (Auto) 0.2 % Neutrophils # (Auto) 3.95 K/uL Lymphocytes # (Auto) 1.22 K/uL Monocytes # (Auto) 0.39 K/uL Eosinophils # (Auto) 0.08 K/uL Basophils # (Auto) 0.01 K/uL RDW Standard Deviation 69.9 fL RDW Coefficient of Variation 22.7 % Immature Granulocyte % (Auto) 0.2 % Immature Granulocyte # (Auto) 0.01 K/uL Anisocytosis PRESENT Prothrombin Time 10.8 SECONDS Prothromb Time International Ratio 1.0 Activated Partial Thromboplast Time 29.3 SECONDS Partial Thromboplastin Ratio 1.1 D-Dimer 580 ug/L FEU Sodium Level 139 mmol/L Potassium Level 3.9 mmol/L Chloride Level 111 mmol/L Carbon Dioxide Level 23 mmol/L Anion Gap 5.0 mmol/L Blood Urea Nitrogen 13 mg/dl Creatinine 0.67 mg/dl Est Creatinine Clear Calc Drug Dose 119.3 ml/min Estimated GFR () 125.7 Estimated GFR (Non- 108.4 BUN/Creatinine Ratio 19.6 Random Glucose 80 mg/dl Calcium Level 8.2 mg/dl Total Bilirubin 0.2 mg/dl Direct Bilirubin < 0.1 mg/dl Aspartate Amino Transf (AST/SGOT) 21 U/L Alanine Aminotransferase (ALT/SGPT) 23 U/L Alkaline Phosphatase 119 U/L Total Creatine Kinase 86 U/L Creatine Kinase MB 0.6 ng/ml Total Protein 6.7 gm/dl Albumin 3.3 gm/dl Lipase 241 U/L Human Chorionic Gonadotropin, Qual NEG Bedside Troponin I < 0.030 ng/ml Assessment & Plan 41 y/o F Hx HTN, opiate abuse, bipolar disease, obesity, asthma, gastric bypass. Pt has had epigastric/lower chest pain for 2 days. States that nothing exacerbates or relieves her symptoms. She was in the ER one day prior and DCd to f/u with her PCP. She was evaluated by her PCP and told to return to the hospital as her pain persisted. She is pain-free at the time of medical evaluation. She denies any associated radiation, SOB, nausea with vomiting, diaphoresis or lightheadedness. 1) CP - the pts pain is persistent and atypical - a gastric etiology may be more likely than cardiac. She has had 2 negative troponins and no significant KG changes over a 245 hour period and has effectively ruled out for an acute event. As she does have some risk factors despite her age, we would recommend outpatient stress testing at the earliest possible time. 2) Bipolar disease - her psychiatric status has been stable following recent admission due to intentional OD - she should remain on her current meds and follow with mental health 3) HTN - high BP was reported by her PCP, however her systolic pressure was recoded at 140 by EMS and has remained at 140 in the ER - this can be further addressed by her PCP. Total time for this consult including review of labs, meds, imaging, EKG 30 min Above discussed with pt and ER attending in addition to housing case manager to arrange stress-testing
[2017-07-11] MEDS ORDERED: FLVHFA110 INH (21:00)
[2017-07-11] MEDS ORDERED: TRMCR130WC TOP (21:00)
[2017-07-11] MEDS ORDERED: ZOLP10TA6 PO (21:08)
[2017-07-11 21:09] VITALS: BP 156/100; PULSE 75; O2SAT 96
[2017-07-11] MEDS ORDERED: ACET-1256 PO (21:35)
[2017-07-11] MEDS ORDERED: MIRT15TA3 PO (22:54)
== END 2017-07-11 21:06 | disposition home or self-care (01) ==
LOC: EDBD 17:01 → C.EDA 17:03
DX: R07.2 Precordial pain (principal); I10 Essential (primary) hypertension; J45.909 Unspecified asthma, uncomplicated; F31.9 Bipolar disorder, unspecified; E66.9 Obesity, unspecified; F43.10 Post-traumatic stress disorder, unspecified; K56.7 Ileus, unspecified; F11.20 Opioid dependence, uncomplicated; K21.9 Gastro-esophageal reflux disease without esophagitis; Z98.84 Bariatric surgery status; Z80.9 Family history of malignant neoplasm, unspecified; Z83.3 Family history of diabetes mellitus; Z83.79 Family history of other diseases of the digestive system; Z83.6 Family history of other diseases of the respiratory system; Z82.49 Family history of ischemic heart disease and other diseases of the circulatory system; Z79.899 Other long term (current) drug therapy

== ENCOUNTER → 2017-07-28 | Outpatient (CLI) | payer OTHER ==
[~2017-07-28] MED LIST changes: +ABL/15 PO; +ABL10 PO; +ACET-1256 PO; +ADEK PO; +BENZ-54 PO; +CHOL1CAP95 PO; +CHOL20007 PO; +CIPR1TAB11 PO; -CLON0.1T12 PO; +COPP1TAB PO; +ERGO500011 PO; +FAMO20TA9 PO; +FLVHFA110 INH; +IRON20IN IV; +KPP/1000 PO; +LEVE500T13 PO; +MIRT15TA3 PO; +ONDA4TAB10 OR; +ONDA4TAB46 PO; +OSEL75CA12 PO; +POLY335019 PO; +PRED20TA2 PO; +RANI150T3 PO; +RMR15 PO; +SEIZURE MED PO; +SERT1TAB68 PO; +THIA50TA3 PO; +TRMCR130WC TOP; +VALA500T60 PO; +VITA10006 PO; +ZINC50TA3 PO; +ZLF/100 PO; +ZOLP10TA6 PO; +[UNRECOGNIZED DRUG - CODE] IV; -[UNRECOGNIZED DRUG - CODE] IV; +copper PO; +zinc PO
[2017-07-28 11:33] LABS: HEMOGLOBIN A1C 4.8 % (4.5-5.6)
[2017-07-28 11:38] LABS: ALBUMIN 3.4 gm/dl (3.4-5.0); ALT/SGPT 33 U/L (12-78); AST/SGOT 24 U/L (15-37); BLOOD UREA NITROGEN 17 mg/dl (7-18); CALCIUM 8.3 mg/dl (8.5-10.1); CARBON DIOXIDE 25 mmol/L (21-32); CHOLESTEROL 191 mg/dl (0-200); GLUCOSE 78 mg/dl (70-99); POTASSIUM 3.6 mmol/L (3.5-5.1); SODIUM 141 mmol/L (136-145)
[2017-07-28 11:41] LABS: ALKALINE PHOSPHATASE 115 U/L (45-117); LDL CHOLESTEROL CALCULATED 118 mg/dl; TOTAL PROTEIN 6.9 gm/dl (6.4-8.2)
== END | disposition home or self-care (01) ==
LOC: C.LABBC 08:43
PROVIDERS: ATTEND Family Medicine
DX: E16.1 Other hypoglycemia (principal); I10 Essential (primary) hypertension; K91.2 Postsurgical malabsorption, not elsewhere classified

== ENCOUNTER 2017-08-07 18:54 | Emergency (ER) | payer OTHER ==
[~2017-08-07] VITALS: Ht 157.5 cm; Wt 95.9 kg
[2017-08-07 19:00] VITALS: TEMP 36.9; Ht 157.5 cm; Wt 95.9 kg
[2017-08-07] MEDS ORDERED: ONDANSETRON INJ 2 MG/ML 2 ML VIAL IV STA (19:28)
[2017-08-07] MEDS ORDERED: KETOROLAC TROMETHAMINE 30 MG/ML VIAL IV STA (19:41)
--- NOTE | 2017-08-07 19:49 | EMERGENCY ROOM VISIT NOTE ---
History First contact with patient: 19:10 Chief Complaint: FLU LIKE SX Stated Complaint: NAUSEA, VOMITING, SORE THROAT, HEADACHE, CHILLS History of Present Illness The patient is a 42 year old female who presents to the Emergency Room with complaints of flulike symptoms which began this morning. The patient states that she has had symptoms since she woke up this morning. She reports sore throat, cough, headache, nausea, diarrhea and nasal congestion. She has had a few episodes of vomiting after coughing. She states she has had a fever of 100.1F. She took Tylenol for this. She denies any chest pain, shortness of breath, abdominal pain or hemoptysis. She rates her overall discomfort a 5/10. She did receive a flu vaccine this year. She does report that her daughter recently had the flu. Review of Systems A complete 10 point review of systems was reviewed with the patient with pertinent positives and negatives as per history of present illness. All else were negative. Past Medical/Surgical History Medical Problems: (1) a-port placement (2) Abdominal pain (3) Agoraphobia (4) Asthma (5) Bipolar I disorder (6) Chronic anemia (7) Chronic pelvic pain in female (8) Dynamic ileus (9) H/O drug abuse (10) Heavy menstrual bleeding (11) History of esophageal dilatation (12) Ileus (13) Obesity (14) Opiate addiction (15) Polycystic kidney disease, adult type (16) Postgastric surgery syndrome (17) PTSD (18) Tubal ligation evaluation Surgical Problems: (1) excessive skin removal (2) gastric revision procedure with gastric bypass (3) H/O colonoscopy (4) H/O esophagogastroduodenoscopy (5) H/O exploratory laparotomy (6) H/O gastric bypass (7) H/O ventral hernia repair (8) H/O wisdom tooth extraction (9) lysis of adhesions (10) S/P cholecystectomy (11) S/P endometrial ablation (12) S/P laparoscopic hysterectomy (13) S/P panniculectomy (14) S/P partial gastrectomy (15) Status post unilateral salpingo-oophorectomy (16) wedge biopsy liver Social History Problems: (1) Gastroesophageal reflux disease (2) Hyperlipidemia Family History Cancer MOTHER (lung) Diabetes mellitus FATHER FH: gallbladder disease FH: lung disease FHx: heart disease FATHER Hypertension MOTHER Stroke FATHER Social History Smoking Status: Never Smoker Alcohol Use: none Drug Use: none Marital Status: , in relationship Housing Status: lives with significant other Occupation Status: employed Current/Historical Medications Scheduled Aripiprazole (Abilify), 15 MG PO HS Cyanocobalamin (Cyanocobalamin), 1,000 MCG IM Q3 MONTHS Fluticasone Propionate (Flovent Hfa), 2 PUFFS INH BID Fosaprepitant Dimeglumine (Emend), 75 MG IV WK Gabapentin (Neurontin), 300 MG PO TID Lisinopril (Zestril), 10 MG PO DAILY Lorazepam (Ativan), 1 MG PO TID Mirtazapine (Remeron), 15 MG PO HS Oseltamivir (Tamiflu), 75 MG PO BID Pediatric Multiple Vitamin W/ (Flintstones Gummies), 1 TAB PO BID Potassium Chloride Microencaps (Potassium Chloride Er), 20 MEQ PO DAILY Sertraline Hcl (Zoloft), 100 MG PO DAILY Topiramate (Topamax), 100 MG PO BID Zolpidem Tartrate (Zolpidem Tartrate), 10 MG PO HS [copper], 3 MG PO BID Scheduled PRN Acetaminophen (Tylenol), 1,000 MG PO Q6H PRN for Pain Albuterol Sulfate (Proventil Hfa), 2 PUFFS INH Q4H PRN for SOB/Wheezing Ondansetron (Ondansetron Odt), 8 MG PO Q8 PRN for Nausea Rizatriptan Benzoate (Maxalt), 10 MG PO UD PRN for Migraine Triamcinolone Acet (Aristocort 0.1%), 1 APPLN TOP BID PRN for Itching Valacyclovir (Valtrex), 500 MG PO BID PRN for Outbreaks Physical Exam Vital Signs Date Time Temp Pulse Resp B/P (MAP) Pulse Ox O2 Delivery O2 Flow Rate FiO2 08/07/17 21:04 81 18 95 08/07/17 21:00 128/96 08/07/17 20:49 78 22 93 08/07/17 20:34 78 23 94 08/07/17 20:30 149/97 08/07/17 20:19 82 94 08/07/17 20:14 83 19 95 08/07/17 20:09 87 22 144/91 08/07/17 20:04 87 08/07/17 19:59 85 25 08/07/17 19:54 90 20 96 08/07/17 19:49 89 24 95 Room Air 08/07/17 19:46 85 08/07/17 19:00 36.9 99 16 162/98 96 Room Air Physical Exam VITALS: Vitals are noted on the nurse's note and reviewed by myself. Vital signs stable. GENERAL: This is a 42-year-old female, in no acute distress, nondiaphoretic, well-developed well-nourished. SKIN: The skin was without rashes. EARS: External auditory canals clear, tympanic membranes pearly kuo without erythema or effusion bilaterally. EYES: Pupils equal round and reactive to light and accommodation. NOSE: Patent, turbinates without inflammation or discharge. MOUTH: Mucous membranes moist. Tonsils are not enlarged. Pharynx without erythema or exudate. NECK: Supple without nuchal rigidity. No lymphadenopathy. HEART: Regular rate and rhythm without murmurs gallops or rubs. LUNGS: Clear to auscultation bilaterally without wheezes, rales or rhonchi. No retractions or accessory muscle use. ABDOMEN: Positive bowel sounds x 4. Soft, nontender to palpation. NEURO: Patient was alert and oriented to person place and time. Medical Decision & Procedures ER Provider Diagnostic Interpretation: CHEST ONE VIEW PORTABLE CLINICAL HISTORY: flu-like symptoms COMPARISON STUDY: 07/11/2017 FINDINGS: The cardiac and mediastinal contours are normal. There is no evidence of focal pulmonary consolidation. There is no evidence of failure. No pleural effusions are visualized.[ There is a left-sided A-Port catheter. There is a calcified left hilar lymph node. IMPRESSION: No active disease in the chest. Laboratory Results 08/07/17 20:00 Red Blood Count 4.18, Mean Corpuscular Volume 85.6, Mean Corpuscular Hemoglobin 27.5, Mean Corpuscular Hemoglobin Concent 32.1, Mean Platelet Volume 9.3, Neutrophils (%) (Auto) 59.7, Lymphocytes (%) (Auto) 29.4, Monocytes (%) (Auto) 9.1, Eosinophils (%) (Auto) 1.4, Basophils (%) (Auto) 0.2, Neutrophils # (Auto) 2.49, Lymphocytes # (Auto) 1.23, Monocytes # (Auto) 0.38, Eosinophils # (Auto) 0.06, Basophils # (Auto) 0.01 08/07/17 20:00 Test 08/07/17 17:45 08/07/17 20:00 Urine Color DK YELLOW Urine Appearance CLOUDY (CLEAR) Urine pH 5.0 (4.5-7.5) Urine Specific [place] 1.019 (1.000-1.030) Urine Protein 1+ (NEG) Urine Glucose (UA) NEG (NEG) Urine Ketones TRACE (NEG) Urine Occult Blood NEG (NEG) Urine Nitrite NEG (NEG) Urine Bilirubin NEG (NEG) Urine Urobilinogen NEG (NEG) Urine Leukocyte Esterase NEG (NEG) Urine WBC (Auto) 5-10 /hpf (0-5) Urine RBC (Auto) 0-4 /hpf (0-4) Urine Hyaline Casts (Auto) 1-5 /lpf (0-5) Urine Epithelial Cells (Auto) >30 /lpf (0-5) Urine Bacteria (Auto) 1+ (NEG) Urine Renal Epithelial Cells /lpf (0-5) Urine Crystals CALCIUM OXALATE (NONE Urine Pathogenic Casts /lpf (0) Urine Mucus PRESENT (NONE PRSENT) Influenza Type A Antigen Neg for Influ A (NEG) Influenza Type B Antigen Neg for Influ B (NEG) White Blood Count 4.18 K/uL (4.8-10.8) Red Blood Count 4.18 M/uL (4.2-5.4) Hemoglobin 11.5 g/dL (12.0-16.0) Hematocrit 35.8 % (37-47) Mean Corpuscular Volume 85.6 fL (80-100) Mean Corpuscular Hemoglobin 27.5 pg (25-34) Mean Corpuscular Hemoglobin Concent 32.1 g/dl (32-36) Platelet Count 163 K/uL (130-400) Mean Platelet Volume 9.3 fL (7.4-10.4) Neutrophils (%) (Auto) 59.7 % Lymphocytes (%) (Auto) 29.4 % Monocytes (%) (Auto) 9.1 % Eosinophils (%) (Auto) 1.4 % Basophils (%) (Auto) 0.2 % Neutrophils # (Auto) 2.49 K/uL (1.4-6.5) Lymphocytes # (Auto) 1.23 K/uL (1.2-3.4) Monocytes # (Auto) 0.38 K/uL (0.11-0.59) Eosinophils # (Auto) 0.06 K/uL (0-0.5) Basophils # (Auto) 0.01 K/uL (0-0.2) RDW Standard Deviation 65.9 fL (36.4-46.3) RDW Coefficient of Variation 21.3 % (11.5-14.5) Immature Granulocyte % (Auto) 0.2 % Immature Granulocyte # (Auto) 0.01 K/uL (0.00-0.02) Anisocytosis PRESENT Anion Gap 10.0 mmol/L (3-11) Est Creatinine Clear Calc Drug Dose 126.4 ml/min Estimated GFR () 128.0 Estimated GFR (Non- 110.4 BUN/Creatinine Ratio 14.6 (10-20) Calcium Level 8.6 mg/dl (8.5-10.1) Total Bilirubin 0.2 mg/dl (0.2-1) Aspartate Amino Transf (AST/SGOT) 22 U/L (15-37) Alanine Aminotransferase (ALT/SGPT) 28 U/L (12-78) Alkaline Phosphatase 107 U/L (45-117) Total Protein 6.3 gm/dl (6.4-8.2) Albumin 3.1 gm/dl (3.4-5.0) Globulin 3.2 gm/dl (2.5-4.0) Albumin/Globulin Ratio 1.0 (0.9-2) Medications Administered Medications (Trade) Dose Ordered Sig/Rigo Route Start Time Stop Time Status Last Admin Dose Admin Ondansetron HCl (Zofran Inj) 4 mg NOW STAT IV 08/07/17 19:28 08/07/17 19:30 DC 08/07/17 20:09 4 MG Ketorolac Tromethamine (Toradol Inj) 30 mg NOW STAT IV 08/07/17 19:41 08/07/17 19:42 DC 08/07/17 20:12 30 MG Oseltamivir Phosphate (Tamiflu Cap) 75 mg NOW STAT PO 08/07/17 21:03 08/07/17 21:04 DC 08/07/17 21:15 75 MG Medical Decision Differential diagnosis includes influenza, viral illness, pneumonia, sepsis, gastroenteritis, among others. The patient is a 42-year-old female who presents today complaining of flulike symptoms. Labs revealed no concerning leukocytosis. There is a stable anemia. Influenza testing was negative. Chest x-ray showed no evidence of pneumonia. Patient's symptoms are very suggestive of influenza, and she has had recent exposure to influenza. I did offer the patient Tamiflu as I feel this is likely influenza despite the negative testing. She was given a first dose here and the rest was sent to a pharmacy. She was instructed to follow-up with her primary care provider for follow-up and return here as needed for any worsening or new/concerning symptoms. The patient was independently evaluated by Dr. Yap, ED attending physician, who agreed with my assessment and treatment plan. Based on the patient's presentation and work up, I feel the patient is stable for outpatient treatment. The patient was educated to return to the emergency department for any worsening of their current condition or new/concerning symptoms. She will follow up with her PCP. Medication Reconcilliation Current Medication List: was personally reviewed by me Blood Pressure Screening Patient's blood pressure: Normal blood pressure Impression Primary Impression: Influenza-like symptoms Departure Information Dispostion Home / Self-Care Condition GOOD Prescriptions Oseltamivir (Tamiflu) 75 Mg Cap 75 MG PO BID for 5 Days, #9 CAP Prov: Eloise Garcia PA-C 08/07/17 Referrals Marivel Harrell MD (PCP) Patient Instructions My [facility] Additional Instructions Tamiflu as prescribed for a total of 5 days. For pain control, you can use the following [id number] medicines (if >12 yo): - Regular strength (325mg/tab) Tylenol (acetaminophen) 2 tabs every 4-6 hours as needed. Do not exceed 12 tablets in a 24 hour period. Avoid taking more than 4 grams (4000 mg) of Tylenol per day. This includes any other sources of acetaminophen you may take on a regular basis. - Regular strength (200 mg/tab) Advil (ibuprofen) 1-2 tabs every 4-6 hours as needed. Do not exceed a dose of 3200 mg per day. Make sure to rest and drink plenty of fluids. Wash your hands frequently and try to avoid too much contact with other people, as you are contagious. As with any trip to the emergency Department, you should follow-up with your primary care provider for a recheck from today's visit. Return to the emergency department with any difficulty breathing, worsening symptoms or any new/concerning symptoms.
[2017-08-07 20:16] LABS: BASO % 0.2 %; BASO ABS # 0.01 K/uL (0-0.2); EOS % 1.4 %; EOS ABS # 0.06 K/uL (0-0.5); HEMATOCRIT 35.8 % (37-47); HEMOGLOBIN 11.5 g/dL (12.0-16.0); IG# 0.01 K/uL (0.00-0.02); LYMPH % 29.4 %; LYMPH ABS # 1.23 K/uL (1.2-3.4); MEAN CELL VOLUME 85.6 fL (80-100); MEAN CORPUSCULAR HEMOGLOBIN 27.5 pg (25-34); MEAN CORPUSCULAR HGB CONC 32.1 g/dl (32-36); MEAN PLATELET VOLUME 9.3 fL (7.4-10.4); MONO % 9.1 %; MONO ABS # 0.38 K/uL (0.11-0.59); NEUT % 59.7 %; NEUT ABS # 2.49 K/uL (1.4-6.5); PLATELET COUNT 163 K/uL (130-400); RED CELL DISTRIBUTION WIDTH CV 21.3 % (11.5-14.5); RED CELL DISTRIBUTION WIDTH SD 65.9 fL (36.4-46.3); WHITE BLOOD COUNT 4.18 K/uL (4.8-10.8)
[2017-08-07 20:27] LABS: INFLUENZA B ANTIGEN Neg for Influ B (NEG)
[2017-08-07 20:39] LABS: ALBUMIN 3.1 gm/dl (3.4-5.0); CALCIUM 8.6 mg/dl (8.5-10.1); CREATININE 0.62 mg/dl (0.60-1.20); POTASSIUM 3.1 mmol/L (3.5-5.1)
[2017-08-07 20:42] LABS: TOTAL PROTEIN 6.3 gm/dl (6.4-8.2)
[2017-08-07 21:00] VITALS: BP 128/96
[2017-08-07] MEDS ORDERED: OSELTAMIVIR PHOSPHATE 75 MG CAP PO STA (21:03)
[2017-08-07 21:04] VITALS: PULSE 81; O2SAT 95
[2017-08-07] MEDS ORDERED: OSEL75CA12 PO (21:05)
--- NOTE | 2017-08-07 21:12 | EMERGENCY ROOM VISIT NOTE ---
ED Visit Note First contact with patient: 19:10 Patient was seen by our PA/MANAGER DOCUMENT CONTROL. I was involved in the patient's care and did evaluate the patient myself. I was involved in the care throughout the ER stay. The patient presents with some flulike symptoms. It is flu season. Workup here shows reassuring laboratory testing, chest film does not show pneumonia. Flu antigen testing was negative. As the patient has flulike symptoms, it was felt reasonable to try Tamiflu. She is being started on this medication. If worsening, she can return. At this point, she is stable for discharge home.
[2017-08-10] MEDS ORDERED: copper PO (11:51)
[2017-08-10] MEDS ORDERED: LISI-461 PO (12:13)
[2017-08-10] MEDS ORDERED: TOPI100T20 PO (13:24)
[2017-08-10] MEDS ORDERED: ATV/1 PO (14:23)
[2017-08-10] MEDS ORDERED: GABA-113 PO (14:23)
== END 2017-08-07 21:18 | disposition home or self-care (01) ==
LOC: C.EDB 18:55
DX: J02.9 Acute pharyngitis, unspecified (principal); R05 Cough; R51 Headache; R11.2 Nausea with vomiting, unspecified; R19.7 Diarrhea, unspecified; R09.81 Nasal congestion; J45.909 Unspecified asthma, uncomplicated; F31.9 Bipolar disorder, unspecified; D64.9 Anemia, unspecified; Q61.2 Polycystic kidney, adult type; F43.10 Post-traumatic stress disorder, unspecified; Z80.1 Family history of malignant neoplasm of trachea, bronchus and lung; Z83.3 Family history of diabetes mellitus; Z83.79 Family history of other diseases of the digestive system; Z82.49 Family history of ischemic heart disease and other diseases of the circulatory system; Z82.3 Family history of stroke

== ENCOUNTER 2017-08-08 17:58 | Emergency (ER) | payer OTHER ==
[~2017-08-08] VITALS: Ht 158.8 cm; Wt 97.5 kg
[~2017-08-08 17:58] MED LIST changes: -ABL/15 PO; -ABL10 PO; -ACET-1256 PO; -ADEK PO; -ALBUAER INH; -ATV/1 PO; -BENZ-54 PO; -CHOL1CAP95 PO; -CHOL20007 PO; -CIPR1TAB11 PO; -COPP1TAB PO; -CYNI1000 IM; -ERGO500011 PO; -FAMO20TA9 PO; -FLVHFA110 INH; -GABA-113 PO; -IRON20IN IV; -KPP/1000 PO; -LEVE500T13 PO; -LISI-461 PO; -MIRT15TA3 PO; -ONDA4TAB10 OR; -ONDA4TAB46 PO; -PEDICHW53 PO; -POLY335019 PO; -POTA20TA13 PO; -PRED20TA2 PO; -RANI150T3 PO; -RIZA10TA18 PO; -RMR15 PO; -SEIZURE MED PO; -SERT1TAB68 PO; -THIA50TA3 PO; -TOPI100T20 PO; -TRMCR130WC TOP; -VALA500T60 PO; -VITA10006 PO; -ZFRODT/8 PO; -ZINC50TA3 PO; -ZLF/100 PO; -ZOLP10TA6 PO; -[UNRECOGNIZED DRUG - CODE] IV; -copper PO; -zinc PO
[2017-08-08 18:05] VITALS: Ht 158.8 cm; Wt 97.5 kg
[2017-08-08] MEDS ORDERED: KETOROLAC TROMETHAMINE 30 MG/ML VIAL IV STA (18:18)
[2017-08-08] MEDS ORDERED: DiphenhydrAMINE HCL 50 MG/ML VIAL IV STA (18:18)
[2017-08-08] MEDS ORDERED: SODIUM CHLORIDE 0.9% 1000ML 1,000 ML IV STA (18:18)
[2017-08-08] MEDS ORDERED: PROCHLORPERAZINE 5 MG/ML 2 ML VIAL IV STA (18:18)
--- NOTE | 2017-08-08 18:24 | EMERGENCY ROOM VISIT NOTE ---
History Report prepared by Jacqueline: Finesse Landry Under the Supervision of: Dr. Jaz Pickett M.D. First contact with patient: 18:13 Chief Complaint: HEADACHE Stated Complaint: HEADACHE, NECK ACHES, NAUSEA, VOMITING, DIARRHEA History of Present Illness The patient is a 42 year old female who presents to the Emergency Room with complaints of worsening flu-like symptoms that started a few days ago. She states that she was seen here a couple days ago with these same symptoms, but she says that her symptoms have worsened and she now has the worst headache of her life in addition to neck pain. The patient says that she can move her head towards her chest, but gets some neck pain with that. She notes that she did test negative for influenza. The patient says that her flu-like symptoms have included nausea, chills, and a low grade fever. She states that she has chronic vomiting and diarrhea, but the vomiting and diarrhea have been worse than normal this week. She adds that the diarrhea is more watery now. The patient notes that she was seen by Dr. Harrell today in the office, and was put on Tamiflu, and she has had 2 doses so far. She states that she is on Lisinopril for her blood pressure, and did take it today. The patent denies any cough. She notes a history of a hysterectomy. Source of History: patient Onset: A few days ago Position: other (global - flu-like symptoms) Symptom Intensity: worst headache of life Timing: worsening Associated Symptoms: + fevers, + chills, + headache, + neck pain, + nausea, + vomiting, + diarrhea, No cough Note: No other associated symptoms noted. Review of Systems See HPI for pertinent positives & negatives. A total of 10 systems reviewed and were otherwise negative. 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 (17) PTSD (18) Tubal ligation evaluation Surgical Problems: (1) excessive skin removal (2) gastric revision procedure with gastric bypass (3) H/O colonoscopy (4) H/O esophagogastroduodenoscopy (5) H/O exploratory laparotomy (6) H/O gastric bypass (7) H/O ventral hernia repair (8) H/O wisdom tooth extraction (9) lysis of adhesions (10) S/P cholecystectomy (11) S/P endometrial ablation (12) S/P laparoscopic hysterectomy (13) S/P panniculectomy (14) S/P partial gastrectomy (15) Status post unilateral salpingo-oophorectomy (16) wedge biopsy liver Social History Problems: (1) Gastroesophageal reflux disease (2) Hyperlipidemia Family History Cancer MOTHER (lung) Diabetes mellitus FATHER FH: gallbladder disease FH: lung disease FHx: heart disease FATHER Hypertension MOTHER Stroke FATHER Social History Smoking Status: Never Smoker Alcohol Use: none Drug Use: none Marital Status: , in relationship Housing Status: lives with significant other Occupation Status: employed Current/Historical Medications Scheduled Aripiprazole (Abilify), 15 MG PO HS Cyanocobalamin (Cyanocobalamin), 1,000 MCG IM Q3 MONTHS Fluticasone Propionate (Flovent Hfa), 2 PUFFS INH BID Fosaprepitant Dimeglumine (Emend), 75 MG IV WK Gabapentin (Neurontin), 300 MG PO TID Lisinopril (Zestril), 10 MG PO DAILY Lorazepam (Ativan), 1 MG PO TID Mirtazapine (Remeron), 15 MG PO HS Oseltamivir (Tamiflu), 75 MG PO BID Pediatric Multiple Vitamin W/ (Flintstones Gummies), 1 TAB PO BID Potassium Chloride Microencaps (Potassium Chloride Er), 20 MEQ PO DAILY Sertraline Hcl (Zoloft), 100 MG PO DAILY Topiramate (Topamax), 100 MG PO BID Zolpidem Tartrate (Zolpidem Tartrate), 10 MG PO HS [copper], 3 MG PO BID Scheduled PRN Acetaminophen (Tylenol), 1,000 MG PO Q6H PRN for Pain Albuterol Sulfate (Proventil Hfa), 2 PUFFS INH Q4H PRN for SOB/Wheezing Ondansetron (Ondansetron Odt), 8 MG PO Q8 PRN for Nausea Rizatriptan Benzoate (Maxalt), 10 MG PO UD PRN for Migraine Triamcinolone Acet (Aristocort 0.1%), 1 APPLN TOP BID PRN for Itching Valacyclovir (Valtrex), 500 MG PO BID PRN for Outbreaks Allergies Coded Allergies: Morphine (Verified Allergy, Severe, TONGUE SWELLING, difficulty breathing/ wheezing, 07/26/17) tolerates hydromorphone Colestipol (Verified Allergy, Intermediate, red rash (no itching), 07/26/17) Cat Dander (Verified Allergy, Unknown, ITCHY WATERY EYES , 07/26/17) NUTS (Verified Allergy, Unknown, skin test showed nut allergy, 07/26/17) per pt, eats peanuts without issue Scopolamine (Verified Adverse Reaction, Severe, Seizure, 07/26/17) SEIZURES ONLY WHEN COMBINED W/ WELLBUTRIN. Promethazine (Verified Adverse Reaction, Intermediate, "CAN'T SIT STILL", 07/26/17) Bupropion (Verified Adverse Reaction, Unknown, Seizure, 07/26/17) SEIZURES WHEN WELLBUTRIN IS COMBINED W/ SCOPALAMINE. Physical Exam Vital Signs Date Time Temp Pulse Resp B/P (MAP) Pulse Ox O2 Delivery O2 Flow Rate FiO2 08/08/17 21:59 86 20 149/83 100 08/08/17 21:09 36.5 08/08/17 20:15 36.8 93 18 154/83 99 Room Air 08/08/17 18:05 36.8 93 18 164/106 97 Room Air Physical Exam Vital signs reviewed. General: Uncomfortable-appearing 42 year old female with sunglasses on, in no significant distress. Noted to be hypertensive. HEENT: No scleral icterus, PERRLA, neck supple. Atraumatic. Cardiovascular: Regular rate and rhythm, no extra sounds. Pulmonary: Clear to auscultation bilaterally, normal work of breathing. Abdomen: Soft, nontender, nondistended, positive bowel sounds. Musculoskeletal: Atraumatic, no peripheral edema. Neurologic: Patient awake alert and oriented x 3, full strength in all 4 extremities. Cranial nerves 2 through 12 grossly intact. No meningeal signs. Skin: Warm, dry, no rash Medical Decision & Procedures ER Provider Diagnostic Interpretation: X-ray results as stated below per interpretation by me and the radiologist: ABDOMEN 2VIEW W/PA CHEST RTN CLINICAL HISTORY: vomiting, diarrhea COMPARISON STUDY: 08/07/2017 FINDINGS: Lungs remain clear. Mild generalized ileus. Increased fecal load descending colon. No secondary signs of free air. IMPRESSION: 1. Negative chest. 2. Generalized ileus. The above report was generated using voice recognition software. It may contain grammatical, syntax or spelling errors. Electronically signed by: Ganga Guzman M.D. 08/08/2017 8:06 PM Dictated Date/Time: 08/08/2017 8:05 PM Laboratory Results 08/08/17 19:11 Red Blood Count 3.98, Mean Corpuscular Volume 86.7, Mean Corpuscular Hemoglobin 27.6, Mean Corpuscular Hemoglobin Concent 31.9, Mean Platelet Volume 9.6, Neutrophils (%) (Auto) 55.6, Lymphocytes (%) (Auto) 32.4, Monocytes (%) (Auto) 9.7, Eosinophils (%) (Auto) 1.9, Basophils (%) (Auto) 0.2, Neutrophils # (Auto) 2.59, Lymphocytes # (Auto) 1.51, Monocytes # (Auto) 0.45, Eosinophils # (Auto) 0.09, Basophils # (Auto) 0.01 08/08/17 19:11 Test 08/08/17 18:40 08/08/17 19:11 Urine Color YELLOW Urine Appearance CLEAR (CLEAR) Urine pH 6.0 (4.5-7.5) Urine Specific Raymond 1.007 (1.000-1.030) Urine Protein NEG (NEG) Urine Glucose (UA) NEG (NEG) Urine Ketones NEG (NEG) Urine Occult Blood NEG (NEG) Urine Nitrite NEG (NEG) Urine Bilirubin NEG (NEG) Urine Urobilinogen NEG (NEG) Urine Leukocyte Esterase NEG (NEG) White Blood Count 4.66 K/uL (4.8-10.8) Red Blood Count 3.98 M/uL (4.2-5.4) Hemoglobin 11.0 g/dL (12.0-16.0) Hematocrit 34.5 % (37-47) Mean Corpuscular Volume 86.7 fL (80-100) Mean Corpuscular Hemoglobin 27.6 pg (25-34) Mean Corpuscular Hemoglobin Concent 31.9 g/dl (32-36) Platelet Count 164 K/uL (130-400) Mean Platelet Volume 9.6 fL (7.4-10.4) Neutrophils (%) (Auto) 55.6 % Lymphocytes (%) (Auto) 32.4 % Monocytes (%) (Auto) 9.7 % Eosinophils (%) (Auto) 1.9 % Basophils (%) (Auto) 0.2 % Neutrophils # (Auto) 2.59 K/uL (1.4-6.5) Lymphocytes # (Auto) 1.51 K/uL (1.2-3.4) Monocytes # (Auto) 0.45 K/uL (0.11-0.59) Eosinophils # (Auto) 0.09 K/uL (0-0.5) Basophils # (Auto) 0.01 K/uL (0-0.2) RDW Standard Deviation 65.6 fL (36.4-46.3) RDW Coefficient of Variation 21.0 % (11.5-14.5) Immature Granulocyte % (Auto) 0.2 % Immature Granulocyte # (Auto) 0.01 K/uL (0.00-0.02) Anisocytosis PRESENT Anion Gap 5.0 mmol/L (3-11) Est Creatinine Clear Calc Drug Dose 109.5 ml/min Estimated GFR () 116.9 Estimated GFR (Non- 100.9 BUN/Creatinine Ratio 10.8 (10-20) Calcium Level 8.0 mg/dl (8.5-10.1) Magnesium Level 2.2 mg/dl (1.8-2.4) Total Bilirubin 0.2 mg/dl (0.2-1) Direct Bilirubin < 0.1 mg/dl (0-0.2) Aspartate Amino Transf (AST/SGOT) 21 U/L (15-37) Alanine Aminotransferase (ALT/SGPT) 29 U/L (12-78) Alkaline Phosphatase 117 U/L (45-117) Total Protein 6.2 gm/dl (6.4-8.2) Albumin 3.1 gm/dl (3.4-5.0) Lipase 191 U/L (73-393) Laboratory results per my review. Medications Administered Medications (Trade) Dose Ordered Sig/Rigo Route Start Time Stop Time Status Last Admin Dose Admin Sodium Chloride 1,000 ml @ 999 mls/hr Q1H1M STAT IV 08/08/17 18:18 08/08/17 19:18 DC 08/08/17 18:18 999 MLS/HR Prochlorperazine Edisylate (Compazine Inj) 10 mg NOW STAT IV 08/08/17 18:18 08/08/17 18:21 DC 08/08/17 19:17 10 MG Diphenhydramine HCl (Benadryl Inj) 25 mg NOW STAT IV 08/08/17 18:18 08/08/17 18:21 DC 08/08/17 19:17 25 MG Ketorolac Tromethamine (Toradol Inj) 30 mg NOW STAT IV 08/08/17 18:18 08/08/17 18:21 DC 08/08/17 19:18 30 MG Heparin Sodium (Porcine) (Heparin 100 Unit/ml 5ml Flush) 5 ml STK-MED ONCE .ROUTE 08/08/17 21:53 08/08/17 21:54 DC 08/08/17 21:59 5 ML ED Course 1814: Past medical records reviewed. The patient was evaluated in room B10. A complete history and physical examination was performed. 1817: Ordered Toradol Inj 30 mg IV, Benadryl Inj 25 mg IV, Compazine Inj 10 mg IV, NSS 1000 ml @ 999 mls/hr IV. 2107: Upon reevaluation, the patient appeared to have improvement of her symptoms. She was noted to be afebrile by the nursing staff. I discussed findings with the patient and her significant other. They verbalized agreement of the treatment plan. The patient was discharged home. Medical Decision Differential diagnosis: Intracranial hemorrhage, intracranial mass, migraine headache, tension headache , sinusitis, meningitis This patient was evaluated and appeared to be in no significant distress. Physical examination reveals a chronically ill-appearing woman with sunglasses on. Neurologically she is intact. There is no sign of acute meningismus. Patient was placed on Tamiflu yesterday. She was given IV hydration here in the emergency department with IV Compazine, Benadryl and Toradol. Laboratory work is consistent with a viral illness. There is no significant change from the yesterday's bloodwork. On reevaluation the patient was feeling improved. She was able to sleep during her stay. I do not think further evaluation is warranted at this time. The patient was discharged to the care of her significant other at the bedside. He expressed understanding of the plan and will ensure close follow-up with her doctor. She will return to the ER for worsening of symptoms or any medical concerns. Medication Reconcilliation Current Medication List: was personally reviewed by me Blood Pressure Screening Patient's blood pressure: Elevated blood pressure Blood pressure disposition: Referred to PCP Impression Primary Impression: Flu-like symptoms Additional Impression: Headache Scribe Attestation The scribe's documentation has been prepared under my direction and personally reviewed by me in its entirety. I confirm that the note above accurately reflects all work, treatment, procedures, and medical decision making performed by me. Departure Information Dispostion Home / Self-Care Referrals Marivel Harrell MD (PCP) Patient Instructions My [facility] Additional Instructions Diagnosis: Flulike illness, headache Continue medications as prescribed. Tylenol 650 mg every 6 hours as needed for pain or fever. Drink plenty of clear fluids. Follow-up with your physician this week for reevaluation. Return to the ER for worsening of symptoms or any medical concerns. Problem Qualifiers
[2017-08-08 19:28] LABS: BASO % 0.2 %; BASO ABS # 0.01 K/uL (0-0.2); EOS % 1.9 %; EOS ABS # 0.09 K/uL (0-0.5); HEMATOCRIT 34.5 % (37-47); IG# 0.01 K/uL (0.00-0.02); LYMPH % 32.4 %; LYMPH ABS # 1.51 K/uL (1.2-3.4); MEAN CELL VOLUME 86.7 fL (80-100); MEAN CORPUSCULAR HEMOGLOBIN 27.6 pg (25-34); MEAN CORPUSCULAR HGB CONC 31.9 g/dl (32-36); MEAN PLATELET VOLUME 9.6 fL (7.4-10.4); MONO % 9.7 %; MONO ABS # 0.45 K/uL (0.11-0.59); NEUT % 55.6 %; NEUT ABS # 2.59 K/uL (1.4-6.5); PLATELET COUNT 164 K/uL (130-400); RED CELL DISTRIBUTION WIDTH SD 65.6 fL (36.4-46.3); WHITE BLOOD COUNT 4.66 K/uL (4.8-10.8)
[2017-08-08 19:45] LABS: ALBUMIN 3.1 gm/dl (3.4-5.0); ALT/SGPT 29 U/L (12-78); AST/SGOT 21 U/L (15-37); BLOOD UREA NITROGEN 8 mg/dl (7-18); CARBON DIOXIDE 23 mmol/L (21-32); CREATININE 0.73 mg/dl (0.60-1.20); GLUCOSE 74 mg/dl (70-99); LIPASE 191 U/L (73-393); POTASSIUM 3.5 mmol/L (3.5-5.1); SODIUM 142 mmol/L (136-145)
[2017-08-08 19:48] LABS: ALKALINE PHOSPHATASE 117 U/L (45-117); TOTAL PROTEIN 6.2 gm/dl (6.4-8.2)
--- NOTE | 2017-08-08 20:07 | DIAGNOSTIC IMAGING REPORT ---
ABDOMEN 2VIEW W/PA CHEST RTN CLINICAL HISTORY: vomiting, diarrhea COMPARISON STUDY: 08/07/2017 FINDINGS: Lungs remain clear. Mild generalized ileus. Increased fecal load descending colon. No secondary signs of free air. IMPRESSION: 1. Negative chest. 2. Generalized ileus. The above report was generated using voice recognition software. It may contain grammatical, syntax or spelling errors. Electronically signed by: Ganga Guzman M.D. 08/08/2017 8:06 PM Dictated Date/Time: 08/08/2017 8:05 PM
[2017-08-08 21:09] VITALS: TEMP 36.5
[2017-08-08 21:59] VITALS: BP 149/83; PULSE 86; O2SAT 100
[2017-08-10] MEDS ORDERED: copper PO (11:51)
[2017-08-10] MEDS ORDERED: LISI-461 PO (12:13)
[2017-08-10] MEDS ORDERED: TOPI100T20 PO (13:24)
[2017-08-10] MEDS ORDERED: ATV/1 PO (14:23)
[2017-08-10] MEDS ORDERED: GABA-113 PO (14:23)
== END 2017-08-08 22:00 | disposition home or self-care (01) ==
LOC: C.EDB 18:00
DX: M54.2 Cervicalgia (principal); R11.2 Nausea with vomiting, unspecified; R50.9 Fever, unspecified; R19.7 Diarrhea, unspecified; R51 Headache; J45.909 Unspecified asthma, uncomplicated; Q61.2 Polycystic kidney, adult type; Z98.84 Bariatric surgery status; Z90.49 Acquired absence of other specified parts of digestive tract; Z90.79 Acquired absence of other genital organ(s); Z90.721 Acquired absence of ovaries, unilateral; Z90.710 Acquired absence of both cervix and uterus; Z98.818 Other dental procedure status; Z80.1 Family history of malignant neoplasm of trachea, bronchus and lung; Z83.3 Family history of diabetes mellitus; Z82.49 Family history of ischemic heart disease and other diseases of the circulatory system; Z82.3 Family history of stroke

== ENCOUNTER 2017-08-10 14:57 | Emergency (ER) | payer OTHER ==
[~2017-08-10] VITALS: Ht 157.5 cm; Wt 96.0 kg
[~2017-08-10 14:57] MED LIST changes: +ATV/1 PO; +GABA-113 PO; +LISI-461 PO; +TOPI100T20 PO; +copper PO
[2017-08-10 15:01] VITALS: TEMP 36.9; Ht 157.5 cm; Wt 96.0 kg
--- NOTE | 2017-08-10 15:09 | EMERGENCY ROOM VISIT NOTE ---
History Report prepared by Jacqueline: Finesse Landry Under the Supervision of: Dr. Italo Acuna M.D. First contact with patient: 15:06 Chief Complaint: SEIZURE Stated Complaint: SEIZURE, INCONTINENCE, HEADACHE, EARS RINGING Nursing Triage Summary: pt to the ED with c/o sz at 12 today and fell and had a sz and was incontinent of bowel and bladder and bit her lip is on topamax and has been compliant with taking and it and is concerned with her having the flu and vomtting and possibly missing meds c/o ringing in ears and SHEPARD History of Present Illness The patient is a 42 year old white female with a past medical history of chronic anemia, gastric bypass, GERD, cholecystectomy, HLD, polycystic kidney disease who presents to the ED with a cc of seizure episode beginning prior to arrival this afternoon. Positive headache, influenza, vomiting, lip and tongue biting, incontinence of bladder and bowel, ringing in ears. The patient states that all she remembers is getting a glass of water, and then being on the floor. She notes that fell onto a ground level floor. She adds that after the episode, her blood pressure was 160/100. The patient is on her last day of Tamiflu. She is on Topamax. The patient denies any new medication changes, extra caffeine, use of diet supplements or weight loss drugs, or recreational drug use. Her last seizure was a year ago, and prior to that she had been having seizures often. Source of History: patient Onset: [employer] this afternoon Position: other (global - seizure) Quality: other (fell onto floor) Timing: other (episode) Associated Symptoms: + headache, + vomiting (positive for flu), + urinary symptoms (incontinence) Note: Associated symptoms: Lip and tongue biting. Incontinence of bowel, ringing in ears. Review of Systems See HPI for pertinent positives and negatives. A total of ten systems were reviewed and were otherwise negative. 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 (17) PTSD (18) Tubal ligation evaluation Surgical Problems: (1) excessive skin removal (2) gastric revision procedure with gastric bypass (3) H/O colonoscopy (4) H/O esophagogastroduodenoscopy (5) H/O exploratory laparotomy (6) H/O gastric bypass (7) H/O ventral hernia repair (8) H/O wisdom tooth extraction (9) lysis of adhesions (10) S/P cholecystectomy (11) S/P endometrial ablation (12) S/P laparoscopic hysterectomy (13) S/P panniculectomy (14) S/P partial gastrectomy (15) Status post unilateral salpingo-oophorectomy (16) wedge biopsy liver Social History Problems: (1) Gastroesophageal reflux disease (2) Hyperlipidemia Family History Cancer MOTHER (lung) Diabetes mellitus FATHER FH: gallbladder disease FH: lung disease FHx: heart disease FATHER Hypertension MOTHER Stroke FATHER Social History Smoking Status: Never Smoker Alcohol Use: none Drug Use: none Marital Status: , in relationship Housing Status: lives with significant other Occupation Status: employed Current/Historical Medications Scheduled Aripiprazole (Abilify), 15 MG PO HS Cyanocobalamin (Cyanocobalamin), 1,000 MCG IM Q3 MONTHS Fluticasone Propionate (Flovent Hfa), 2 PUFFS INH BID Fosaprepitant Dimeglumine (Emend), 75 MG IV WK Gabapentin (Neurontin), 300 MG PO TID Lisinopril (Zestril), 10 MG PO DAILY Lorazepam (Ativan), 1 MG PO TID Mirtazapine (Remeron), 15 MG PO HS Oseltamivir (Tamiflu), 75 MG PO BID Pediatric Multiple Vitamin W/ (Flintstones Gummies), 1 TAB PO BID Potassium Chloride Microencaps (Potassium Chloride Er), 20 MEQ PO DAILY Sertraline Hcl (Zoloft), 100 MG PO DAILY Topiramate (Topamax), 100 MG PO BID Zolpidem Tartrate (Zolpidem Tartrate), 10 MG PO HS [copper], 3 MG PO BID Scheduled PRN Acetaminophen (Tylenol), 1,000 MG PO Q6H PRN for Pain Albuterol Sulfate (Proventil Hfa), 2 PUFFS INH Q4H PRN for SOB/Wheezing Ondansetron (Ondansetron Odt), 8 MG PO Q8 PRN for Nausea Ondansetron Hcl (Zofran), 4 MG PO Q8H PRN for Nausea Rizatriptan Benzoate (Maxalt), 10 MG PO UD PRN for Migraine Triamcinolone Acet (Aristocort 0.1%), 1 APPLN TOP BID PRN for Itching Valacyclovir (Valtrex), 500 MG PO BID PRN for Outbreaks Allergies Coded Allergies: Morphine (Verified Allergy, Severe, TONGUE SWELLING, difficulty breathing/ wheezing, 07/26/17) tolerates hydromorphone Colestipol (Verified Allergy, Intermediate, red rash (no itching), 07/26/17) Cat Dander (Verified Allergy, Unknown, ITCHY WATERY EYES , 07/26/17) NUTS (Verified Allergy, Unknown, skin test showed nut allergy, 07/26/17) per pt, eats peanuts without issue Scopolamine (Verified Adverse Reaction, Severe, Seizure, 07/26/17) SEIZURES ONLY WHEN COMBINED W/ WELLBUTRIN. Promethazine (Verified Adverse Reaction, Intermediate, "CAN'T SIT STILL", 07/26/17) Bupropion (Verified Adverse Reaction, Unknown, Seizure, 07/26/17) SEIZURES WHEN WELLBUTRIN IS COMBINED W/ SCOPALAMINE. Physical Exam Vital Signs Date Time Temp Pulse Resp B/P (MAP) Pulse Ox O2 Delivery O2 Flow Rate FiO2 08/10/17 19:52 74 16 130/97 96 08/10/17 19:05 72 16 141/87 96 Room Air 08/10/17 17:38 110 20 125/85 94 Nasal Cannula 4.0 08/10/17 16:49 Room Air 08/10/17 15:01 36.9 73 16 163/106 99 Physical Exam GENERAL: Awake, alert, well-appearing, NAD HENT: NCAT. Posterior pharynx clear, no tonsillar or uvular deviation. Bilateral TM's clear. No obvious lacerations to oral cavity or tongue. EYES: Normal conjunctiva. Sclera non-icteric. NECK: Supple. No nuchal rigidity. FROM. RESPIRATORY: CTAB, no rhonchi, wheezing, crackles CARDIAC: RRR, no MRG ABDOMEN: Soft, NTND, BS+ MSK: No chest wall TTP, no midline C-spine tenderness, no LE edema NEURO: CN 2-12 intact, 5/5 upper and lower extremity strength, no dysmetria, no drift, good finger to nose, no sensory deficits. SKIN: No rash or jaundice noted. Medical Decision & Procedures ER Provider Diagnostic Interpretation: Radiology results as stated below per my review and radiologist interpretation: CT SCAN OF THE BRAIN WITHOUT IV CONTRAST CLINICAL HISTORY: Seizure. COMPARISON STUDY: Prior CT scans of the brain, most recently dated 08/07/2016. TECHNIQUE: Unenhanced axial CT scan of the brain is performed from the vertex to the skull base. A dose lowering technique was utilized adhering to the principles of ALARA. CT DOSE: 638.56 mGycm FINDINGS: Brain parenchyma: The brain parenchyma is normal in appearance. There is no hemorrhage, mass effect, or evidence of acute territorial ischemia by CT criteria. Alicia-white matter is preserved. No extra-axial fluid collection is seen. Ventricles, sulci, cisterns: Normal in configuration. Intracranial vasculature: The visualized intracranial vasculature at the skull base is normal in appearance. Calvarium: Unremarkable. Sinuses and mastoids: The visualized paranasal sinuses are clear. The mastoid air cells are well pneumatized. Orbits: The bony orbits are grossly intact. IMPRESSION: No acute intracranial abnormality. Electronically signed by: Xu Vigil M.D. 08/10/2017 6:02 PM Dictated Date/Time: 08/10/2017 6:01 PM CHEST ONE VIEW PORTABLE CLINICAL HISTORY: SEIZURE mental status change COMPARISON STUDY: 08/08/2017 FINDINGS: Central catheter in the superior vena cava. Lungs are clear. Diaphragms are smooth. IMPRESSION: No acute process. The above report was generated using voice recognition software. It may contain grammatical, syntax or spelling errors. Electronically signed by: Ganga Guzman M.D. 08/10/2017 3:51 PM Dictated Date/Time: 08/10/2017 3:51 PM Laboratory Results 08/10/17 16:30 Red Blood Count 4.18, Mean Corpuscular Volume 85.6, Mean Corpuscular Hemoglobin 27.3, Mean Corpuscular Hemoglobin Concent 31.8, Mean Platelet Volume 9.7, Neutrophils (%) (Auto) 61.3, Lymphocytes (%) (Auto) 31.3, Monocytes (%) (Auto) 5.1, Eosinophils (%) (Auto) 1.9, Basophils (%) (Auto) 0.2, Neutrophils # (Auto) 2.88, Lymphocytes # (Auto) 1.47, Monocytes # (Auto) 0.24, Eosinophils # (Auto) 0.09, Basophils # (Auto) 0.01 08/10/17 16:30 Test 08/10/17 16:30 White Blood Count 4.70 K/uL (4.8-10.8) Red Blood Count 4.18 M/uL (4.2-5.4) Hemoglobin 11.4 g/dL (12.0-16.0) Hematocrit 35.8 % (37-47) Mean Corpuscular Volume 85.6 fL (80-100) Mean Corpuscular Hemoglobin 27.3 pg (25-34) Mean Corpuscular Hemoglobin Concent 31.8 g/dl (32-36) Platelet Count 188 K/uL (130-400) Mean Platelet Volume 9.7 fL (7.4-10.4) Neutrophils (%) (Auto) 61.3 % Lymphocytes (%) (Auto) 31.3 % Monocytes (%) (Auto) 5.1 % Eosinophils (%) (Auto) 1.9 % Basophils (%) (Auto) 0.2 % Neutrophils # (Auto) 2.88 K/uL (1.4-6.5) Lymphocytes # (Auto) 1.47 K/uL (1.2-3.4) Monocytes # (Auto) 0.24 K/uL (0.11-0.59) Eosinophils # (Auto) 0.09 K/uL (0-0.5) Basophils # (Auto) 0.01 K/uL (0-0.2) RDW Standard Deviation 65.5 fL (36.4-46.3) RDW Coefficient of Variation 21.0 % (11.5-14.5) Immature Granulocyte % (Auto) 0.2 % Immature Granulocyte # (Auto) 0.01 K/uL (0.00-0.02) Anisocytosis PRESENT Ovalocytes 1+ Prothrombin Time 10.5 SECONDS (9.0-12.0) Prothromb Time International Ratio 1.0 (0.9-1.1) Activated Partial Thromboplast Time 39.6 SECONDS (21.0-31.0) Partial Thromboplastin Ratio 1.5 Urine Color YELLOW Urine Appearance CLEAR (CLEAR) Urine pH 6.0 (4.5-7.5) Urine Specific [place] 1.010 (1.000-1.030) Urine Protein NEG (NEG) Urine Glucose (UA) NEG (NEG) Urine Ketones NEG (NEG) Urine Occult Blood NEG (NEG) Urine Nitrite NEG (NEG) Urine Bilirubin NEG (NEG) Urine Urobilinogen NEG (NEG) Urine Leukocyte Esterase NEG (NEG) Urine Test NEG (NEG) Anion Gap 7.0 mmol/L (3-11) Est Creatinine Clear Calc Drug Dose 126.5 ml/min Estimated GFR () 128.0 Estimated GFR (Non- 110.4 BUN/Creatinine Ratio 13.0 (10-20) Calcium Level 8.2 mg/dl (8.5-10.1) Phosphorus Level 3.2 mg/dl (2.5-4.9) Magnesium Level 2.2 mg/dl (1.8-2.4) Thyroid Stimulating Hormone (TSH) 1.280 uIu/ml (0.300-4.500) Laboratory results reviewed by me Medications Administered Medications (Trade) Dose Ordered Sig/Rigo Route Start Time Stop Time Status Last Admin Dose Admin Sodium Chloride 500 ml @ 999 mls/hr Q31M STAT IV 08/10/17 15:57 08/10/17 16:27 DC 08/10/17 16:58 999 MLS/HR Prochlorperazine Edisylate (Compazine Inj) 10 mg NOW STAT IV 08/10/17 15:57 08/10/17 15:59 DC 08/10/17 16:58 10 MG Diphenhydramine HCl (Benadryl Inj) 50 mg NOW STAT IV 08/10/17 15:57 08/10/17 15:59 DC 08/10/17 16:57 50 MG Topiramate (Topamax Tab) 100 mg ONE STAT PO 08/10/17 15:57 08/10/17 15:59 DC 08/10/17 17:35 100 MG Potassium Chloride (Klor-Con M10) 40 meq NOW STAT PO 08/10/17 18:52 08/10/17 19:01 DC 08/10/17 19:03 40 MEQ Heparin Sodium (Porcine) (Heparin 100 Unit/ml 5ml Flush) 5 ml STK-MED ONCE .ROUTE 08/10/17 19:48 08/10/17 19:49 DC 08/10/17 19:52 5 ML ED Course 1549: The patient was evaluated in room B12B. A complete history and physical exam was performed. 1943: I reevaluated the patient and she is resting comfortably. Discussed results and discharge instructions: she verbalized understanding and agreement. The patient is ready for discharge. Medical Decision The patient is a 42 year old white female with a past medical history of chronic anemia, gastric bypass, GERD, cholecystectomy, HLD, polycystic kidney disease who presents to the ED with a cc of seizure episode beginning prior to arrival this afternoon. Positive headache, influenza, vomiting, lip and tongue biting, incontinence of bladder and bowel, ringing in ears Differential diagnosis: Etiologies such as infection, hypoglycemia, electrolyte abnormalities, cardiac sources, intracerebral event, trauma, toxicologic, neurologic, as well as others were entertained. Patient was seen and evaluated the bedside. Patient had presented status post a likely seizure. Patient states she fell to the floor. Patient has no obvious signs of trauma. Patient has no focal neurologic deficit. Patient has been seen twice within the last several days or some URI and flulike symptoms. The patient has had some vomiting. I did discuss and ask questions pertaining to possible causes of seizure. I believe most likely cause is that the patient has not been able tolerate her antiepileptic medications as the patient has had vomiting. The patient did have blood work completed along with CTs and symptom control. Patient's CTs were negative acute. The patient did have some mild hypokalemia. This was repleted along with magnesium. The patient had a negative urinalysis and negative urine test. The patient was able to tolerate her medications as well as fluids. The patient was given her normal dose of Topamax. The patient's most recent seizure was approximately one year ago. Patient states she has been compliant with her medications. Given all the above I believe this seizure likely was caused by the patient's inability to fully absorbing keep down her Topamax. The patient was able to take her dose here. Patient was told to continue to do so at home. Patient was given anti-medics for home. Patient had no signs of meningismus and I do not believe that she requires any more advanced imaging or procedures at this time. Patient was told to follow-up with her neurologist as scheduled. Patient was deemed suitable for outpatient follow-up and treatment at this time. Patient was given strict follow-up, discharge, and return precautions. All questions were answered. Patient was deemed suitable for outpatient follow-up at this time. Patient agreed with the plan of care and was safely discharged home. The chart was completed utilizing [employer] voice recognition software. Grammatical errors, random word insertions, pronoun errors, and incomplete sentences are an occasional consequence of this system due to software limitations, ambient noise, and hardware issues. Any formal questions or concerns about the content, text, or information contained within the body of this dictation should be directly addressed to the physician for clarification. Medication Reconcilliation Current Medication List: was personally reviewed by me Blood Pressure Screening Patient's blood pressure: Normal blood pressure Impression Primary Impression: Seizure Additional Impressions: Anemia Hypokalemia Scribe Attestation The scribe's documentation has been prepared under my direction and personally reviewed by me in its entirety. I confirm that the note above accurately reflects all work, treatment, procedures, and medical decision making performed by me. Departure Information Dispostion Home / Self-Care Prescriptions Ondansetron Hcl (ZOFRAN) 4 Mg Tab 4 MG PO Q8H Y for Nausea, #6 TAB Prov: Italo Acuna M.D. 08/10/17 Referrals Marivel Harrell MD (PCP) Patient Instructions ED Seizure Recurrent, Hypokalemia Dc, My [facility] Additional Instructions Please return to the emergency department if you have worsening or recurrent symptoms not amenable to at-home treatment. Please call for a follow-up appointment with her primary care physician. Please take your medications as prescribed. If you have other concerns and/or complaints please feel free to also call your primary care physician's office or return the ED for further evaluation, management, and treatment. Please follow-up with your neurologist. Please take your medications as prescribed. Please consider supplementing your diet with potatoes, multivitamin , or bananas to help with her potassium. Take your medications as prescribed. You have been examined and treated today on an emergency basis only. This is not a substitute for, or an effort to provide, complete comprehensive medical care. It is impossible to recognize and treat all injuries or illnesses in a single emergency department visit. It is therefore important that you follow up closely with [facility], your PCP, and/or your specialist(s). Call as soon as possible for an appointment. Thank you for your time and consideration. I look forward to speaking with you again soon. Please don't hesitate to call us if you have any questions. Problem Qualifiers Additional Impressions: Anemia Anemia type: unspecified type Qualified Codes: D64.9 - Anemia, unspecified
[2017-08-10] MEDS ORDERED: ZFRODT/8 PO (15:40)
--- NOTE | 2017-08-10 15:53 | DIAGNOSTIC IMAGING REPORT ---
CHEST ONE VIEW PORTABLE CLINICAL HISTORY: SEIZURE mental status change COMPARISON STUDY: 08/08/2017 FINDINGS: Central catheter in the superior vena cava. Lungs are clear. Diaphragms are smooth. IMPRESSION: No acute process. The above report was generated using voice recognition software. It may contain grammatical, syntax or spelling errors. Electronically signed by: Ganga Guzman M.D. 08/10/2017 3:51 PM Dictated Date/Time: 08/10/2017 3:51 PM
[2017-08-10] MEDS ORDERED: TOPIRAMATE 100 MG TAB PO STA (15:57)
[2017-08-10] MEDS ORDERED: DiphenhydrAMINE HCL 50 MG/ML VIAL IV STA (15:57)
[2017-08-10] MEDS ORDERED: SODIUM CHLORIDE 0.9% 500ML 500 ML IV STA (15:57)
[2017-08-10] MEDS ORDERED: PROCHLORPERAZINE 5 MG/ML 2 ML VIAL IV STA (15:57)
[2017-08-10] MEDS ORDERED: PEDICHW53 PO (16:36)
[2017-08-10] MEDS ORDERED: ALBUAER INH (16:36)
[2017-08-10] MEDS ORDERED: [UNRECOGNIZED DRUG - CODE] IV (16:36)
[2017-08-10] MEDS ORDERED: RIZA10TA18 PO (16:36)
[2017-08-10] MEDS ORDERED: POTA20TA13 PO (16:36)
[2017-08-10] MEDS ORDERED: CYNI1000 IM (16:38)
[2017-08-10 17:17] LABS: PTT PATIENT 39.6 SECONDS (21.0-31.0)
[2017-08-10 17:18] LABS: BASO % 0.2 %; BASO ABS # 0.01 K/uL (0-0.2); EOS % 1.9 %; EOS ABS # 0.09 K/uL (0-0.5); HEMATOCRIT 35.8 % (37-47); HEMOGLOBIN 11.4 g/dL (12.0-16.0); IG# 0.01 K/uL (0.00-0.02); LYMPH % 31.3 %; LYMPH ABS # 1.47 K/uL (1.2-3.4); MEAN CELL VOLUME 85.6 fL (80-100); MEAN CORPUSCULAR HEMOGLOBIN 27.3 pg (25-34); MEAN CORPUSCULAR HGB CONC 31.8 g/dl (32-36); MEAN PLATELET VOLUME 9.7 fL (7.4-10.4); MONO % 5.1 %; MONO ABS # 0.24 K/uL (0.11-0.59); NEUT % 61.3 %; NEUT ABS # 2.88 K/uL (1.4-6.5); PLATELET COUNT 188 K/uL (130-400); RED CELL DISTRIBUTION WIDTH SD 65.5 fL (36.4-46.3)
[2017-08-10 17:37] LABS: CALCIUM 8.2 mg/dl (8.5-10.1); CREATININE 0.62 mg/dl (0.60-1.20); POTASSIUM 3.3 mmol/L (3.5-5.1)
[2017-08-10 17:47] LABS: PHOSPHORUS 3.2 mg/dl (2.5-4.9)
--- NOTE | 2017-08-10 18:04 | DIAGNOSTIC IMAGING REPORT ---
CT SCAN OF THE BRAIN WITHOUT IV CONTRAST CLINICAL HISTORY: Seizure. COMPARISON STUDY: Prior CT scans of the brain, most recently dated 08/07/2016. TECHNIQUE: Unenhanced axial CT scan of the brain is performed from the vertex to the skull base. A dose lowering technique was utilized adhering to the principles of ALARA. CT DOSE: 638.56 mGycm FINDINGS: Brain parenchyma: The brain parenchyma is normal in appearance. There is no hemorrhage, mass effect, or evidence of acute territorial ischemia by CT criteria. Alicia-white matter is preserved. No extra-axial fluid collection is seen. Ventricles, sulci, cisterns: Normal in configuration. Intracranial vasculature: The visualized intracranial vasculature at the skull base is normal in appearance. Calvarium: Unremarkable. Sinuses and mastoids: The visualized paranasal sinuses are clear. The mastoid air cells are well pneumatized. Orbits: The bony orbits are grossly intact. IMPRESSION: No acute intracranial abnormality. Electronically signed by: Xu Vigil M.D. 08/10/2017 6:02 PM Dictated Date/Time: 08/10/2017 6:01 PM
[2017-08-10] MEDS ORDERED: SERT1TAB68 PO (18:27)
[2017-08-10] MEDS ORDERED: ABL/15 PO (18:27)
[2017-08-10] MEDS ORDERED: POTASSIUM CHLORIDE 10 MEQ TABCR PO STA (18:52)
[2017-08-10] MEDS ORDERED: ONDA4TAB46 PO (19:27)
[2017-08-10 19:52] VITALS: BP 130/97; PULSE 74; O2SAT 96
[2017-08-10] MEDS ORDERED: VALA500T60 PO (20:00)
[2017-08-10] MEDS ORDERED: FLVHFA110 INH (21:00)
[2017-08-10] MEDS ORDERED: TRMCR130WC TOP (21:00)
[2017-08-10] MEDS ORDERED: ZOLP10TA6 PO (21:08)
[2017-08-10] MEDS ORDERED: ACET-1256 PO (21:35)
[2017-08-10] MEDS ORDERED: MIRT15TA3 PO (22:54)
== END 2017-08-10 19:53 | disposition home or self-care (01) ==
LOC: C.EDB 14:58
DX: R56.9 Unspecified convulsions (principal); D64.9 Anemia, unspecified; E87.6 Hypokalemia; Z98.84 Bariatric surgery status; K21.9 Gastro-esophageal reflux disease without esophagitis; Z90.49 Acquired absence of other specified parts of digestive tract; Z79.899 Other long term (current) drug therapy; E78.5 Hyperlipidemia, unspecified; Q61.3 Polycystic kidney, unspecified; J45.909 Unspecified asthma, uncomplicated; F31.9 Bipolar disorder, unspecified; E66.9 Obesity, unspecified; Z68.38 Body mass index [BMI] 38.0-38.9, adult; F43.10 Post-traumatic stress disorder, unspecified; Z90.710 Acquired absence of both cervix and uterus; Z90.721 Acquired absence of ovaries, unilateral; Z80.9 Family history of malignant neoplasm, unspecified; Z83.3 Family history of diabetes mellitus; Z82.49 Family history of ischemic heart disease and other diseases of the circulatory system; Z82.3 Family history of stroke

== ENCOUNTER 2017-08-30 03:59 | Emergency (ER) | payer OTHER ==
[~2017-08-30] VITALS: Ht 157.5 cm; Wt 95.8 kg
[~2017-08-30 03:59] MED LIST changes: +ABL/15 PO; +ACET-1256 PO; +ALBUAER INH; +CHOL20007 PO; +CYNI1000 IM; +ERGO500011 PO; +FLVHFA110 INH; +IRON20IN IV; +MIRT15TA3 PO; -OSEL75CA12 PO; +PEDICHW53 PO; +POLY335019 PO; +POTA20TA13 PO; +RIZA10TA18 PO; +SERT1TAB68 PO; +TRMCR130WC TOP; +VALA500T60 PO; +ZFRODT/8 PO; +ZOLP10TA6 PO; +[UNRECOGNIZED DRUG - CODE] IV; +zinc PO
[2017-08-30 04:02] VITALS: Ht 157.5 cm; Wt 95.8 kg
[2017-08-30] MEDS ORDERED: DEXAMETHASONE SOD INJ 4 MG/ML VIAL IV STA (04:58)
[2017-08-30] MEDS ORDERED: DiphenhydrAMINE HCL 50 MG/ML VIAL IV STA (04:58)
[2017-08-30 05:31] LABS: BASO % 0.3 %; BASO ABS # 0.01 K/uL (0-0.2); EOS % 1.6 %; EOS ABS # 0.06 K/uL (0-0.5); HEMOGLOBIN 11.4 g/dL (12.0-16.0); LYMPH % 36.5 %; LYMPH ABS # 1.36 K/uL (1.2-3.4); MEAN CELL VOLUME 87.6 fL (80-100); MEAN CORPUSCULAR HEMOGLOBIN 27.7 pg (25-34); MEAN CORPUSCULAR HGB CONC 31.7 g/dl (32-36); MONO % 10.2 %; MONO ABS # 0.38 K/uL (0.11-0.59); NEUT % 51.4 %; NEUT ABS # 1.92 K/uL (1.4-6.5); PLATELET COUNT 173 K/uL (130-400); RED CELL DISTRIBUTION WIDTH CV 19.4 % (11.5-14.5); RED CELL DISTRIBUTION WIDTH SD 63.1 fL (36.4-46.3); WHITE BLOOD COUNT 3.73 K/uL (4.8-10.8)
[2017-08-30 05:50] LABS: CREATININE 0.68 mg/dl (0.60-1.20); POTASSIUM 3.5 mmol/L (3.5-5.1)
--- NOTE | 2017-08-30 05:58 | EMERGENCY ROOM VISIT NOTE ---
History First contact with patient: 04:17 Chief Complaint: RASH Stated Complaint: RASH ON FACE,SORE THROAT,NAUSEA,VOMITING History of Present Illness The patient is a 42 year old female who presents to the Emergency Room with complaints of rash on her face, sore throat and dry heaving which began one to 2 hours ago. The patient reports that she woke up from sleep with an itchy rash on her face, a sore throat and dry heaving. She states that the throat feels dry and is painful to swallow. She denies any rashes on her body. She denies any new exposures to foods, medications, soaps or detergents. She denies abdominal pain or diarrhea. She denies any recent ill contacts. Review of Systems A complete 10 point review of systems was reviewed with the patient with pertinent positives and negatives as per history of present illness. All else were negative. Past Medical/Surgical History Medical Problems: (1) a-port placement (2) Abdominal pain (3) Agoraphobia (4) Asthma (5) Bipolar I disorder (6) Chronic anemia (7) Chronic pelvic pain in female (8) Dynamic ileus (9) H/O drug abuse (10) Heavy menstrual bleeding (11) History of esophageal dilatation (12) Ileus (13) Obesity (14) Opiate addiction (15) Polycystic kidney disease, adult type (16) Postgastric surgery syndrome (17) PTSD (18) Tubal ligation evaluation Surgical Problems: (1) excessive skin removal (2) gastric revision procedure with gastric bypass (3) H/O colonoscopy (4) H/O esophagogastroduodenoscopy (5) H/O exploratory laparotomy (6) H/O gastric bypass (7) H/O ventral hernia repair (8) H/O wisdom tooth extraction (9) lysis of adhesions (10) S/P cholecystectomy (11) S/P endometrial ablation (12) S/P laparoscopic hysterectomy (13) S/P panniculectomy (14) S/P partial gastrectomy (15) Status post unilateral salpingo-oophorectomy (16) wedge biopsy liver Social History Problems: (1) Gastroesophageal reflux disease (2) Hyperlipidemia Family History Cancer MOTHER (lung) Diabetes mellitus FATHER FH: gallbladder disease FH: lung disease FHx: heart disease FATHER Hypertension MOTHER Stroke FATHER Social History Smoking Status: Never Smoker Alcohol Use: none Drug Use: none Marital Status: , in relationship Housing Status: lives with significant other Occupation Status: employed Current/Historical Medications Scheduled Aripiprazole (Abilify), 20 MG PO DAILY Cholecalciferol (Vitamin D3), 1 TAB PO DAILY Cyanocobalamin (Cyanocobalamin), 1,000 MCG IM Q3 MONTHS Ergocalciferol (Vitamin D 28536 Unit), 1 CAP PO WK Fluticasone Propionate (Flovent Hfa), 2 PUFFS INH BID Fosaprepitant Dimeglumine (Emend), 75 MG IV WK Gabapentin (Neurontin), 300 MG PO TID Iron Sucrose (Venofer), 200 MG IV DIRECTED Lisinopril (Zestril), 10 MG PO DAILY Lorazepam (Ativan), 1 MG PO TID Mirtazapine (Remeron), 15 MG PO HS Pediatric Multiple Vitamin W/ (Flintstones Gummies), 1 TAB PO BID Potassium Chloride Microencaps (Potassium Chloride Er), 20 MEQ PO DAILY Sertraline Hcl (Zoloft), 100 MG PO DAILY Topiramate (Topamax), 150 MG PO BID Zolpidem Tartrate (Zolpidem Tartrate), 10 MG PO HS [copper], 3 MG PO BID [zinc], 50 MG PO DAILY Scheduled PRN Acetaminophen (Tylenol), 1,000 MG PO Q6H PRN for Pain Albuterol Sulfate (Proventil Hfa), 2 PUFFS INH Q4H PRN for SOB/Wheezing Ondansetron (Ondansetron Odt), 8 MG PO Q8 PRN for Nausea Polyethylene Glycol 3350 (Miralax), 17 GM PO DAILY PRN for Constipation Rizatriptan Benzoate (Maxalt), 10 MG PO UD PRN for Migraine Triamcinolone Acet (Aristocort 0.1%), 1 APPLN TOP BID PRN for Itching Valacyclovir (Valtrex), 500 MG PO BID PRN for Outbreaks Physical Exam Vital Signs Date Time Temp Pulse Resp B/P (MAP) Pulse Ox O2 Delivery O2 Flow Rate FiO2 08/30/17 07:30 62 16 162/77 98 08/30/17 06:54 36.8 60 16 151/98 97 Room Air 08/30/17 04:02 36.6 60 16 142/84 98 Room Air Physical Exam VITALS: Vitals are noted on the nurse's note and reviewed by myself. Vital signs stable. GENERAL: This is a 42-year-old female, in no acute distress, nondiaphoretic, well-developed well-nourished. SKIN: There is a mildly erythematous rash to bilateral cheeks. EARS: External auditory canals clear, tympanic membranes pearly kuo without erythema or effusion bilaterally. EYES: Pupils equal round and reactive to light and accommodation. NOSE: Patent, turbinates without inflammation or discharge. MOUTH: Mucous membranes moist. Tonsils are not enlarged. Pharynx without erythema or exudate. NECK: Supple without nuchal rigidity. No lymphadenopathy. HEART: Regular rate and rhythm without murmurs gallops or rubs. LUNGS: Clear to auscultation bilaterally without wheezes, rales or rhonchi. NEURO: Patient was alert and oriented to person place and time. Medical Decision & Procedures Laboratory Results 08/30/17 05:10 Red Blood Count 4.11, Mean Corpuscular Volume 87.6, Mean Corpuscular Hemoglobin 27.7, Mean Corpuscular Hemoglobin Concent 31.7, Mean Platelet Volume 10.0, Neutrophils (%) (Auto) 51.4, Lymphocytes (%) (Auto) 36.5, Monocytes (%) (Auto) 10.2, Eosinophils (%) (Auto) 1.6, Basophils (%) (Auto) 0.3, Neutrophils # (Auto ) 1.92, Lymphocytes # (Auto) 1.36, Monocytes # (Auto) 0.38, Eosinophils # (Auto ) 0.06, Basophils # (Auto) 0.01 08/30/17 05:10 Test 08/30/17 05:10 White Blood Count 3.73 K/uL (4.8-10.8) Red Blood Count 4.11 M/uL (4.2-5.4) Hemoglobin 11.4 g/dL (12.0-16.0) Hematocrit 36.0 % (37-47) Mean Corpuscular Volume 87.6 fL (80-100) Mean Corpuscular Hemoglobin 27.7 pg (25-34) Mean Corpuscular Hemoglobin Concent 31.7 g/dl (32-36) Platelet Count 173 K/uL (130-400) Mean Platelet Volume 10.0 fL (7.4-10.4) Neutrophils (%) (Auto) 51.4 % Lymphocytes (%) (Auto) 36.5 % Monocytes (%) (Auto) 10.2 % Eosinophils (%) (Auto) 1.6 % Basophils (%) (Auto) 0.3 % Neutrophils # (Auto) 1.92 K/uL (1.4-6.5) Lymphocytes # (Auto) 1.36 K/uL (1.2-3.4) Monocytes # (Auto) 0.38 K/uL (0.11-0.59) Eosinophils # (Auto) 0.06 K/uL (0-0.5) Basophils # (Auto) 0.01 K/uL (0-0.2) RDW Standard Deviation 63.1 fL (36.4-46.3) RDW Coefficient of Variation 19.4 % (11.5-14.5) Immature Granulocyte % (Auto) 0.0 % Immature Granulocyte # (Auto) 0.00 K/uL (0.00-0.02) Anion Gap 4.0 mmol/L (3-11) Est Creatinine Clear Calc Drug Dose 115.2 ml/min Estimated GFR () 124.2 Estimated GFR (Non- 107.1 BUN/Creatinine Ratio 23.5 (10-20) Calcium Level 8.0 mg/dl (8.5-10.1) Date/Time Source Procedure Growth Status 08/30/17 06:14 Throat Group A Streptococcus Screen - Final SPECIMEN NEGATIVE FOR GROUP A BETA ST... Complete 08/30/17 06:14 Throat Group A Streptococcus Screen ([facility]) - Final NO BETA STREP. ISOLATED. Complete Medications Administered Medications (Trade) Dose Ordered Sig/Rigo Route Start Time Stop Time Status Last Admin Dose Admin Dexamethasone Sodium Phosphate (Decadron Inj) 10 mg NOW STAT IV 08/30/17 04:58 08/30/17 05:00 DC 08/30/17 05:10 10 MG Diphenhydramine HCl (Benadryl Inj) 25 mg NOW STAT IV 08/30/17 04:58 08/30/17 05:00 DC 08/30/17 05:10 25 MG Famotidine (Pepcid 20mg Iv Push) 20 mg ONE STAT IV 08/30/17 06:36 08/30/17 06:37 DC 08/30/17 06:45 20 MG Heparin Sodium (Porcine) (Heparin 100 Unit/ml 5ml Flush) 5 ml STK-MED ONCE .ROUTE 08/30/17 07:01 08/30/17 07:02 DC 08/30/17 07:20 5 ML Medical Decision Differential diagnosis includes allergic reaction, strep pharyngitis, electrolyte abnormality, among others. The patient is a 42-year-old female who presents today complaining of rash and feeling like there is a lump in her throat. Labs revealed no leukocytosis. Strep swab was negative. Patient was treated with IV steroids, Benadryl and famotidine and her rash did seem to improve. This may represent a mild allergic reaction. Patient was advised to follow-up with her primary care provider for further evaluation. Based on the patient's presentation and work up, I feel the patient is stable for outpatient treatment. The patient was educated to return to the emergency department for any worsening of their current condition or new/concerning symptoms. She will follow up with her PCP. Impression Primary Impression: Allergic reaction Departure Information Dispostion Home / Self-Care Condition GOOD Referrals Marivel Harrell MD (PCP) Patient Instructions My [facility] Additional Instructions You should take Benadryl (diphenhydramine) 25 to 50 mgs every 4-6 hours for the next 3 days. You can find this medicine [id number]. Benadryl can help reduce your symptoms. You should take it for the next 3 days or until your symptoms have subsided. Be aware that Benadryl can make you drowsy. Rest and drink plenty of fluids. Follow-up with your primary care provider for recheck. Return to the emergency department with difficulty breathing, chest pain, increased vomiting or any other new/concerning symptoms. Problem Qualifiers Primary Impression: Allergic reaction Encounter type: initial encounter Qualified Codes: T78.40XA - Allergy, unspecified, initial encounter
[2017-08-30] MEDS ORDERED: FAMOTIDINE 20MG/5ML IV PUSH IV STA (06:36)
--- NOTE | 2017-08-30 06:50 | EMERGENCY ROOM VISIT NOTE ---
ED Visit Note First contact with patient: 04:17 Patient seen and examined at bedside. Patient with mild erythema noted to the face bilaterally, no rashes or sores, no vesicles, no facial swelling. No swelling of the patient's lips tongues, no mucocutaneous lesions, uvula midline , no dysphonia, no dysphagia, no stridor noted on exam. Patient with no other findings suggestive of angioedema or anaphylaxis. Patient states family members have called also say that her daughter woke up sick as well today. Patient denies any recent changes in diet, medications, per hygiene products. No other recent new environment exposures or travel.
[2017-08-30 06:54] VITALS: TEMP 36.8
[2017-08-30 07:30] VITALS: BP 162/77; PULSE 62; O2SAT 98
== END 2017-08-30 07:31 | disposition home or self-care (01) ==
LOC: C.EDB 04:01
DX: R21 Rash and other nonspecific skin eruption (principal); J02.9 Acute pharyngitis, unspecified; F31.9 Bipolar disorder, unspecified; Z98.84 Bariatric surgery status; Z79.899 Other long term (current) drug therapy; E66.9 Obesity, unspecified; D64.9 Anemia, unspecified; Z90.49 Acquired absence of other specified parts of digestive tract

== ENCOUNTER 2017-10-01 17:14 | Emergency (ER) | payer OTHER ==
[~2017-10-01] VITALS: Ht 157.5 cm; Wt 94.1 kg
[~2017-10-01 17:14] MED LIST changes: +THIA50TA3 PO
[2017-10-01 17:21] VITALS: TEMP 36.9; Ht 157.5 cm; Wt 94.1 kg
[2017-10-01] MEDS ORDERED: SODIUM CHLORIDE 0.9% 1000ML 2,000 ML IV STA (17:46)
[2017-10-01] MEDS ORDERED: HYDROmorphone INJ 0.5 MG/0.5 ML SYR IV STA (17:46)
[2017-10-01 17:56] LABS: BASO % 0.2 %; BASO ABS # 0.01 K/uL (0-0.2); EOS % 1.6 %; EOS ABS # 0.08 K/uL (0-0.5); HEMATOCRIT 35.4 % (37-47); HEMOGLOBIN 11.7 g/dL (12.0-16.0); IG# 0.01 K/uL (0.00-0.02); LYMPH % 37.8 %; MEAN CELL VOLUME 93.2 fL (80-100); MEAN CORPUSCULAR HEMOGLOBIN 30.8 pg (25-34); MEAN CORPUSCULAR HGB CONC 33.1 g/dl (32-36); MEAN PLATELET VOLUME 9.5 fL (7.4-10.4); MONO % 7.4 %; MONO ABS # 0.37 K/uL (0.11-0.59); NEUT % 52.8 %; NEUT ABS # 2.65 K/uL (1.4-6.5); PLATELET COUNT 174 K/uL (130-400); RED CELL DISTRIBUTION WIDTH CV 16.8 % (11.5-14.5); RED CELL DISTRIBUTION WIDTH SD 57.5 fL (36.4-46.3); WHITE BLOOD COUNT 5.02 K/uL (4.8-10.8)
[2017-10-01 18:14] LABS: ALBUMIN 3.3 gm/dl (3.4-5.0); CALCIUM 8.1 mg/dl (8.5-10.1); CREATININE 0.72 mg/dl (0.60-1.20); POTASSIUM 3.7 mmol/L (3.5-5.1)
[2017-10-01] MEDS ORDERED: OPTIRAY 320 IV PRN (18:15)
[2017-10-01 18:17] LABS: TOTAL PROTEIN 6.5 gm/dl (6.4-8.2)
[2017-10-01] MEDS ORDERED: CIPR1TAB11 PO (18:21)
[2017-10-01] MEDS ORDERED: SEIZURE MED PO (18:22)
[2017-10-01] MEDS ORDERED: ONDANSETRON INJ 2 MG/ML 2 ML VIAL IV STA ×2 (18:37→20:00)
--- NOTE | 2017-10-01 19:12 | DIAGNOSTIC IMAGING REPORT ---
CT ABD/PELVIS IV AND ORAL CONT CLINICAL HISTORY: severe lower abd pain. 20min oral prep only please COMPARISON STUDY: 07/11/1970 TECHNIQUE: Following the IV administration of 110 mL of Optiray-320, CT scan of the abdomen and pelvis was performed from the lung bases to the proximal femurs. Images are reviewed in the axial, sagittal, and coronal planes. IV contrast was administered without complication. A dose lowering technique was utilized adhering to the principles of ALARA. CT DOSE: 1049.41 mGy.cm FINDINGS: Lower chest: There are minor dependent atelectatic changes. Liver: No focal masses are visualized. There is minimal central biliary ductal prominence, unchanged the prior study Gallbladder: Surgically absent Spleen: Normal in size and attenuation. Pancreas: Unremarkable. Adrenal glands: Unremarkable. Kidneys: There is symmetric renal cortical enhancement. There is minimal fullness of the left renal collecting system. No ureteral calculi are visualized. Bowel: There are postsurgical changes of a gastric bypass. There is no gastric outlet obstruction. The gastrojejunostomy appears patent as contrast is visualized within the small bowel and colon. There is a pelvic suture line, suggestive of a small bowel anastomosis. There are no transition zones indicate bowel obstruction. There are borderline dilated bowel loops containing fluid. There is fecal retention. The appendix appears normal. There is no acute diverticulitis. Peritoneum: There is no intraperitoneal free air or abdominal ascites. Vasculature: The abdominal aorta is normal in course and caliber. Adenopathy: Mesenteric lymph nodes are the upper limits of normal in size. Pelvic viscera: The uterus appears surgically absent Skeletal structures: No destructive osseous lesions are seen. IMPRESSION: 1. No acute intra-abdominal or pelvic findings 2. Postsurgical changes of a prior gastric bypass 3. Normal appendix 4. Mild fecal retention. Electronically signed by: Ernesto Black M.D. 10/01/2017 7:10 PM Dictated Date/Time: 10/01/2017 7:04 PM
[2017-10-01 20:59] VITALS: BP 140/93; PULSE 66; O2SAT 99
--- NOTE | 2017-10-01 21:44 | EMERGENCY ROOM VISIT NOTE ---
History Report prepared by Jacqueline: Guillermina Carter Under the Supervision of: Moshe NicolasO. First contact with patient: 17:28 Chief Complaint: NAUSEA Stated Complaint: ABDOMINAL PAIN, NAUSEA, DIARRHEA, LEGS SHAKY, WEAK Nursing Triage Summary: pt reports started with NV 1 day ago seems to be worse today difficutly keeping food and drink down History of Present Illness The patient is a 42 year old female who presents to the Emergency Room with complaints of persistent diarrhea since yesterday morning. She notes that she woke up yesterday with diarrhea. She reports the symptoms have worsened today and she has had 12 episodes of diarrhea. She also reports nausea, dizziness, and leg weakness since this morning. She notes LLQ abdominal pain. She has been on Cipro and is unsure why. She thinks it may be due to her history of C. diff. She has a history of cholecystectomy, hysterectomy, and oophorectomy, though she still has her left ovary. She has a history of gastric bypass and colon resection. Pt denies headache, change in vision, fevers, chest pain, shortness of breath, vomiting, or pain with urination. She denies any cough or runny nose. Source of History: patient Onset: since yesterday morning Position: other (global) Quality: other (diarrhea) Timing: other (persistent) Associated Symptoms: + nausea, + abdominal pain (LLQ), + weakness (leg), No fevers, No headache, No cough, No chest pain, No SOB, No vomiting, No urinary symptoms (no pain with urination) Note: She notes dizziness. She denies any change in vision or runny nose. Review of Systems See HPI for pertinent positives & negatives. A total of 10 systems reviewed and were otherwise negative. 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 (17) PTSD (18) Tubal ligation evaluation Surgical Problems: (1) excessive skin removal (2) gastric revision procedure with gastric bypass (3) H/O colonoscopy (4) H/O esophagogastroduodenoscopy (5) H/O exploratory laparotomy (6) H/O gastric bypass (7) H/O ventral hernia repair (8) H/O wisdom tooth extraction (9) lysis of adhesions (10) S/P cholecystectomy (11) S/P endometrial ablation (12) S/P laparoscopic hysterectomy (13) S/P panniculectomy (14) S/P partial gastrectomy (15) Status post unilateral salpingo-oophorectomy (16) wedge biopsy liver Social History Problems: (1) Gastroesophageal reflux disease (2) Hyperlipidemia Family History FATHER Diabetes mellitus FHx: heart disease Stroke MOTHER Cancer (lung) Hypertension Relation not specified for: FH: gallbladder disease FH: lung disease Social History Smoking Status: Never Smoker Alcohol Use: none Drug Use: none Marital Status: , in relationship Housing Status: lives with significant other Occupation Status: employed Current/Historical Medications Scheduled Aripiprazole (Abilify), 20 MG PO DAILY Cholecalciferol (Vitamin D3), 1 TAB PO DAILY Ciprofloxacin Tab (Cipro), Unknown Dose PO BID Cyanocobalamin (Cyanocobalamin), 1,000 MCG IM Q3 MONTHS Ergocalciferol (Vitamin D 44069 Unit), 1 CAP PO WK Fluticasone Propionate (Flovent Hfa), 2 PUFFS INH BID Fosaprepitant Dimeglumine (Emend), 75 MG IV WK Gabapentin (Neurontin), 300 MG PO TID Iron Sucrose (Venofer), 200 MG IV DIRECTED Lisinopril (Zestril), 10 MG PO DAILY Lorazepam (Ativan), 1 MG PO TID Mirtazapine (Remeron), 15 MG PO HS Pediatric Multiple Vitamin W/ (Flintstones Gummies), 1 TAB PO BID Potassium Chloride Microencaps (Potassium Chloride Er), 20 MEQ PO DAILY Sertraline Hcl (Zoloft), 100 MG PO DAILY Thiamine Hcl (Vitamin B-1), 50 MG PO DAILY Topiramate (Topamax), 150 MG PO BID Zolpidem Tartrate (Zolpidem Tartrate), 10 MG PO HS [Seizure Med], 1 TAB PO BID [copper], 3 MG PO BID [zinc], 50 MG PO DAILY Scheduled PRN Acetaminophen (Tylenol), 1,000 MG PO Q6H PRN for Pain Albuterol Sulfate (Proventil Hfa), 2 PUFFS INH Q4H PRN for SOB/Wheezing Ondansetron (Ondansetron Odt), 8 MG PO Q8 PRN for Nausea Polyethylene Glycol 3350 (Miralax), 17 GM PO DAILY PRN for Constipation Rizatriptan Benzoate (Maxalt), 10 MG PO UD PRN for Migraine Triamcinolone Acet (Aristocort 0.1%), 1 APPLN TOP BID PRN for Itching Valacyclovir (Valtrex), 500 MG PO BID PRN for Outbreaks Allergies Coded Allergies: Morphine (Verified Allergy, Severe, TONGUE SWELLING, difficulty breathing/ wheezing, 09/27/17) tolerates hydromorphone Colestipol (Verified Allergy, Intermediate, red rash (no itching), 09/27/17) Cat Dander (Verified Allergy, Unknown, ITCHY WATERY EYES , 09/27/17) NUTS (Verified Allergy, Unknown, skin test showed nut allergy, 09/27/17) per pt, eats peanuts without issue Scopolamine (Verified Adverse Reaction, Severe, Seizure, 09/27/17) SEIZURES ONLY WHEN COMBINED W/ WELLBUTRIN. Promethazine (Verified Adverse Reaction, Intermediate, "CAN'T SIT STILL", 09/27/17) Bupropion (Verified Adverse Reaction, Unknown, Seizure, 09/27/17) SEIZURES WHEN WELLBUTRIN IS COMBINED W/ SCOPALAMINE. Physical Exam Vital Signs Date Time Temp Pulse Resp B/P (MAP) Pulse Ox O2 Delivery O2 Flow Rate FiO2 10/01/17 20:59 66 16 140/93 99 10/01/17 19:16 72 18 166/99 99 Room Air 10/01/17 17:21 36.9 76 20 145/101 97 Room Air Physical Exam GENERAL: Sitting up in bed, alert, disheveled, chronically ill-appearing, well nourished, no distress, non-toxic. Obese. EYE EXAM: normal conjunctiva. OROPHARYNX: no exudate, no erythema, lips, buccal mucosa, and tongue normal and mucous membranes are moist NECK: supple, no nuchal rigidity, no adenopathy, non-tender CHEST: port in left chest wall LUNGS: Clear to auscultation. Normal chest wall mechanics HEART: no murmurs, S1 normal and S2 normal ABDOMEN: abdomen soft, normo-active bowel sounds, no masses, no rebound or guarding. Old abdominal incisions along midline. Tenderness in lower abdomen. BACK: Back is symmetrical on inspection and there is no deformity, no midline tenderness, no CVA tenderness. SKIN: no rashes and no bruising UPPER EXTREMITIES: upper extremities are grossly normal. LOWER EXTREMITIES: No pitting edema. NEURO EXAM: Normal sensorium, cranial nerves II-XII intact, normal speech, no weakness of arms, no weakness of legs. No drift. Finger to nose intact. Gross sensation intact. Medical Decision & Procedures ER Provider Diagnostic Interpretation: Radiology results as stated below per my review and the radiologist's interpretation: CT ABD/PELVIS IV AND ORAL CONT CLINICAL HISTORY: severe lower abd pain. 20min oral prep only please COMPARISON STUDY: 07/11/1970 TECHNIQUE: Following the IV administration of 110 mL of Optiray-320, CT scan of the abdomen and pelvis was performed from the lung bases to the proximal femurs. Images are reviewed in the axial, sagittal, and coronal planes. IV contrast was administered without complication. A dose lowering technique was utilized adhering to the principles of ALARA. CT DOSE: 1049.41 mGy.cm FINDINGS: Lower chest: There are minor dependent atelectatic changes. Liver: No focal masses are visualized. There is minimal central biliary ductal prominence, unchanged the prior study Gallbladder: Surgically absent Spleen: Normal in size and attenuation. Pancreas: Unremarkable. Adrenal glands: Unremarkable. Kidneys: There is symmetric renal cortical enhancement. There is minimal fullness of the left renal collecting system. No ureteral calculi are visualized. Bowel: There are postsurgical changes of a gastric bypass. There is no gastric outlet obstruction. The gastrojejunostomy appears patent as contrast is visualized within the small bowel and colon. There is a pelvic suture line, suggestive of a small bowel anastomosis. There are no transition zones indicate bowel obstruction. There are borderline dilated bowel loops containing fluid. There is fecal retention. The appendix appears normal. There is no acute diverticulitis. Peritoneum: There is no intraperitoneal free air or abdominal ascites. Vasculature: The abdominal aorta is normal in course and caliber. Adenopathy: Mesenteric lymph nodes are the upper limits of normal in size. Pelvic viscera: The uterus appears surgically absent Skeletal structures: No destructive osseous lesions are seen. IMPRESSION: 1. No acute intra-abdominal or pelvic findings 2. Postsurgical changes of a prior gastric bypass 3. Normal appendix 4. Mild fecal retention. Electronically signed by: Ernesto Black M.D. 10/01/2017 7:10 PM Dictated Date/Time: 10/01/2017 7:04 PM Laboratory Results 10/01/17 17:45 Red Blood Count 3.80, Mean Corpuscular Volume 93.2, Mean Corpuscular Hemoglobin 30.8, Mean Corpuscular Hemoglobin Concent 33.1, Mean Platelet Volume 9.5, Neutrophils (%) (Auto) 52.8, Lymphocytes (%) (Auto) 37.8, Monocytes (%) (Auto) 7.4, Eosinophils (%) (Auto) 1.6, Basophils (%) (Auto) 0.2, Neutrophils # (Auto) 2.65, Lymphocytes # (Auto) 1.90, Monocytes # (Auto) 0.37, Eosinophils # (Auto) 0.08, Basophils # (Auto) 0.01 10/01/17 17:45 Test 10/01/17 17:25 10/01/17 17:45 10/01/17 18:45 Urine Color YELLOW Urine Appearance CLEAR (CLEAR) Urine pH 5.0 (4.5-7.5) Urine Specific [place] 1.017 (1.000-1.030) Urine Protein NEG (NEG) Urine Glucose (UA) NEG (NEG) Urine Ketones NEG (NEG) Urine Occult Blood NEG (NEG) Urine Nitrite NEG (NEG) Urine Bilirubin NEG (NEG) Urine Urobilinogen NEG (NEG) Urine Leukocyte Esterase NEG (NEG) Urine WBC (Auto) 5-10 /hpf (0-5) Urine RBC (Auto) 0-4 /hpf (0-4) Urine Hyaline Casts (Auto) 1-5 /lpf (0-5) Urine Epithelial Cells (Auto) >30 /lpf (0-5) Urine Bacteria (Auto) 1+ (NEG) Urine Test NEG (NEG) White Blood Count 5.02 K/uL (4.8-10.8) Red Blood Count 3.80 M/uL (4.2-5.4) Hemoglobin 11.7 g/dL (12.0-16.0) Hematocrit 35.4 % (37-47) Mean Corpuscular Volume 93.2 fL (80-100) Mean Corpuscular Hemoglobin 30.8 pg (25-34) Mean Corpuscular Hemoglobin Concent 33.1 g/dl (32-36) Platelet Count 174 K/uL (130-400) Mean Platelet Volume 9.5 fL (7.4-10.4) Neutrophils (%) (Auto) 52.8 % Lymphocytes (%) (Auto) 37.8 % Monocytes (%) (Auto) 7.4 % Eosinophils (%) (Auto) 1.6 % Basophils (%) (Auto) 0.2 % Neutrophils # (Auto) 2.65 K/uL (1.4-6.5) Lymphocytes # (Auto) 1.90 K/uL (1.2-3.4) Monocytes # (Auto) 0.37 K/uL (0.11-0.59) Eosinophils # (Auto) 0.08 K/uL (0-0.5) Basophils # (Auto) 0.01 K/uL (0-0.2) RDW Standard Deviation 57.5 fL (36.4-46.3) RDW Coefficient of Variation 16.8 % (11.5-14.5) Immature Granulocyte % (Auto) 0.2 % Immature Granulocyte # (Auto) 0.01 K/uL (0.00-0.02) Anion Gap 8.0 mmol/L (3-11) Est Creatinine Clear Calc Drug Dose 107.7 ml/min Estimated GFR () 118.9 Estimated GFR (Non- 102.6 BUN/Creatinine Ratio 9.8 (10-20) Calcium Level 8.1 mg/dl (8.5-10.1) Total Bilirubin 0.3 mg/dl (0.2-1) Direct Bilirubin 0.1 mg/dl (0-0.2) Aspartate Amino Transf (AST/SGOT) 26 U/L (15-37) Alanine Aminotransferase (ALT/SGPT) 35 U/L (12-78) Alkaline Phosphatase 121 U/L (45-117) Total Protein 6.5 gm/dl (6.4-8.2) Albumin 3.3 gm/dl (3.4-5.0) Lipase 233 U/L (73-393) Date/Time Source Procedure Growth Status 10/01/17 18:45 Stool C.difficile Toxin B Gene (PCR) - Final No C. difficile toxin B gene detected Complete Laboratory results per my review. Medications Administered Medications (Trade) Dose Ordered Sig/Rigo Route Start Time Stop Time Status Last Admin Dose Admin Sodium Chloride 2,000 ml @ 999 mls/hr Q2H1M STAT IV 10/01/17 17:46 10/01/17 19:46 DC 10/01/17 17:46 999 MLS/HR Hydromorphone HCl (Dilaudid Inj) 0.5 mg NOW STAT IV 10/01/17 17:46 10/01/17 17:48 DC 10/01/17 18:39 0.5 MG Ondansetron HCl (Zofran Inj) 4 mg NOW STAT IV 10/01/17 18:37 10/01/17 18:38 DC 10/01/17 18:46 4 MG Ondansetron HCl (Zofran Inj) 4 mg NOW STAT IV 10/01/17 20:00 10/01/17 20:01 DC 10/01/17 20:06 4 MG Heparin Sodium (Porcine) (Heparin 100 Unit/ml 5ml Flush) 5 ml STK-MED ONCE .ROUTE 10/01/17 20:45 10/01/17 20:46 DC 10/01/17 20:55 5 ML ECG Per My Interpretation Indication: abdominal pain Rate (beats per minute): 63 Rhythm: sinus rhythm Findings: no ectopy (No PVCs), other (Normal axis) ED Course ED COURSE: Vital signs were reviewed and showed normal. The patients medical record was reviewed The above diagnostic studies were performed and reviewed. ED treatments and interventions as stated above. 1738: The patient was evaluated in room C8. A complete history and physical examination was performed. 1746: Ordered Dilaudid 0.5 mg IV and Sodium Chloride 2,000 ml @ 999 mls/hr IV 1837: Ordered Zofran 4 mg IV 1999: Ordered Zofran 4 mg IV 2024: Upon reevaluation, the patient is feeling better. I discussed my findings with the patient and she understands and agrees with the treatment plan. Based on the patients age, coexisting illnesses, exam and lab findings the decision to treat as an outpatient was made. The patient remained stable while under my care. The patient appeared well at the time of discharge. Medical Decision Differential diagnoses includes but is not limited to gastritis, peptic ulcer disease, GERD, gallbladder disease, pancreatitis, small bowel obstruction, acute coronary syndrome, pericarditis, ischemic bowel, irritable bowel disease, irritable bowel syndrome, appendicitis, diverticulitis, malignancy, hernia, urinary tract infection, torsion, /ectopic , perforation, trauma, infectious. Patient is a 42-year-old female who presents the ER for diarrhea along with crampy lower abdominal pain. She has been following up with her GI who recently placed on Cipro. Previous cholecystectomy and removal of right ovary. She also has had gastric bypass. Abdomen is completely benign. CBC along with BMP, LFTs, bilirubin and lipase was unremarkable. UA was contaminated. was negative. C. difficile was negative. Remainder of stool cultures were pending. Patient was given IV fluids and morphine. She was also given IV Zofran. She had improvement in her pain. CT showed no acute pathology. Patient was updated at bedside discharge follow-up with GI as an outpatient. Discussed with Pt concerning signs and symptoms to watch out for. Pt was instructed to follow up with their PCP and discussed with the patient their option to return to the ED at anytime for persistent or worsening symptoms. The appropriate anticipatory guidance and out-patient management, including indications for return to the emergency department, were explained at length to the patient and understood. Medication Reconcilliation Current Medication List: was personally reviewed by me Blood Pressure Screening Patient's blood pressure: Normal blood pressure Impression Primary Impression: Abdominal pain Additional Impression: Diarrhea Scribe Attestation The scribe's documentation has been prepared under my direction and personally reviewed by me in its entirety. I confirm that the note above accurately reflects all work, treatment, procedures, and medical decision making performed by me. Departure Information Dispostion Home / Self-Care Referrals No Doctor, Assigned (PCP) Forms HOME CARE DOCUMENTATION FORM, IMPORTANT VISIT INFORMATION Patient Instructions Abdominal Pain - [facility], ED Diarrhea Viral, My [facility] Additional Instructions Please follow up with your primary care doctor with in the next 24 hours. Any worsening of your symptoms, please return to the ED immediately. This includes any fevers greater than 100.4, worsening pain, chest pain, shortness breath, persistent nausea, vomiting, unable to eat or drink, or any other concerning signs or symptoms from your standpoint. You were given medications during this visit that will inhibit your ability to drive, operate machinery and work. Please do NOT drive, operate machinery, drink alcohol or work for the next 12hrs. Please follow-up with GI as an outpatient. Problem Qualifiers Primary Impression: Abdominal pain Abdominal location: unspecified location Qualified Codes: R10.9 - Unspecified abdominal pain Additional Impression: Diarrhea Diarrhea type: unspecified type Qualified Codes: R19.7 - Diarrhea, unspecified
[2017-10-04] MEDS ORDERED: LEVE500T13 PO (11:42)
== END 2017-10-01 20:58 | disposition home or self-care (01) ==
LOC: C.EDB 17:15 → C.EDC 20:58
DX: R10.32 Left lower quadrant pain (principal); R19.7 Diarrhea, unspecified; R11.0 Nausea; F40.00 Agoraphobia, unspecified; J45.909 Unspecified asthma, uncomplicated; F31.9 Bipolar disorder, unspecified; D64.9 Anemia, unspecified; Q61.2 Polycystic kidney, adult type; Z86.19 Personal history of other infectious and parasitic diseases; Z90.49 Acquired absence of other specified parts of digestive tract; Z90.710 Acquired absence of both cervix and uterus; Z90.721 Acquired absence of ovaries, unilateral; Z98.84 Bariatric surgery status; Z88.6 Allergy status to analgesic agent; Z88.5 Allergy status to narcotic agent; Z88.8 Allergy status to other drugs, medicaments and biological substances; Z91.048 Other nonmedicinal substance allergy status; Z91.018 Allergy to other foods; Z83.3 Family history of diabetes mellitus; Z82.49 Family history of ischemic heart disease and other diseases of the circulatory system; Z82.3 Family history of stroke; Z80.1 Family history of malignant neoplasm of trachea, bronchus and lung; Z83.79 Family history of other diseases of the digestive system

== ENCOUNTER 2017-10-08 16:29 | Emergency (ER) | payer OTHER ==
[~2017-10-08] VITALS: Ht 157.5 cm; Wt 95.5 kg
[~2017-10-08 16:29] MED LIST changes: +CIPR1TAB11 PO; +LEVE500T13 PO; +SEIZURE MED PO
[2017-10-08 16:41] VITALS: TEMP 36.9; Ht 157.5 cm; Wt 95.5 kg
[2017-10-08] MEDS ORDERED: SODIUM CHLORIDE 0.9% 1000ML 1,000 ML IV STA ×2 (17:15→19:08)
[2017-10-08] MEDS ORDERED: KETOROLAC TROMETHAMINE 30 MG/ML VIAL IV STA (17:15)
[2017-10-08] MEDS ORDERED: PROCHLORPERAZINE 5 MG/ML 2 ML VIAL IV STA ×2 (17:15→19:08)
[2017-10-08] MEDS ORDERED: DiphenhydrAMINE HCL 50 MG/ML VIAL IV STA (17:15)
--- NOTE | 2017-10-08 17:22 | EMERGENCY ROOM VISIT NOTE ---
History Report prepared by Jacqueline: Reynaldo Apodaca Under the Supervision of: Dr. Xu Yap M.D. First contact with patient: 17:05 Chief Complaint: GI ASSESSMENT Stated Complaint: DIARRHEA,VOMITING,BELLY PAIN,NAUSEA Nursing Triage Summary: Pt reports N,V,D starting this morning. Pt called GI doctor and was referred here. Lower right abdominal pain. History of Present Illness The patient is a 42 year old female who presents to the Emergency Room with complaints of constant right lower quadrant abdominal pain that started a couple of days ago. She rates her discomfort as a 6/10 in severity. The patient states that the pain is relieved with pushing the area. Per the patient's report , the patient came to the ED for her abdominal pain on October 01. She had an abdominal and pelvis CT performed with no acute findings, including a normal appendix noted. The patient also had a lab work up that was unrevealing. She had a C. diff and stool culture done, which was negative. The patient states that her symptoms have been waxing and waning since her visit at the ED. The patient reports that her abdominal pain resolved until a couple of days ago when the right lower quadrant pain returned. She states that she had a seizure yesterday and called Dr. Dumont. The patient states that Dr. Dumont increased her Keppra dose to 1000 mg twice a day. She states that starting yesterday her diarrhea worsened to "eight times worse and whipped cream consistency". The patient states that she has been nauseous and vomited today. The patient states that she took Zofran and extra strength Tylenol for her symptoms without any relief. She reports that she talked to Dr. Burger about her symptoms who told her to come to the ED. 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 The patient denies fever. Source of History: patient Onset: a couple of days ago Position: abdomen (RLQ) Symptom Intensity: 6/10 Timing: constant Modifying Factors (Relieving): tylenol, other (pushing on the area, Zofran) Associated Symptoms: + nausea, + vomiting, + diarrhea, No fevers Review of Systems See HPI for pertinent positives & negatives. A total of 10 systems reviewed and were otherwise negative. 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 (17) PTSD (18) Tubal ligation evaluation Surgical Problems: (1) excessive skin removal (2) gastric revision procedure with gastric bypass (3) H/O colonoscopy (4) H/O esophagogastroduodenoscopy (5) H/O exploratory laparotomy (6) H/O gastric bypass (7) H/O ventral hernia repair (8) H/O wisdom tooth extraction (9) lysis of adhesions (10) S/P cholecystectomy (11) S/P endometrial ablation (12) S/P laparoscopic hysterectomy (13) S/P panniculectomy (14) S/P partial gastrectomy (15) Status post unilateral salpingo-oophorectomy (16) wedge biopsy liver Social History Problems: (1) Gastroesophageal reflux disease (2) Hyperlipidemia Family History Cancer MOTHER (lung) Diabetes mellitus FATHER FH: gallbladder disease FH: lung disease FHx: heart disease FATHER Hypertension MOTHER Stroke FATHER Social History Smoking Status: Never Smoker Alcohol Use: none Drug Use: none Marital Status: , in relationship Housing Status: lives with significant other Occupation Status: employed Current/Historical Medications Scheduled Aripiprazole (Abilify), 20 MG PO DAILY Cholecalciferol (Vitamin D3), 1 TAB PO DAILY Ciprofloxacin Tab (Cipro), Unknown Dose PO BID Copper Gluconate (Copper), 3 MG PO DAILY Cyanocobalamin (Cyanocobalamin), 1,000 MCG IM Q3 MONTHS Ergocalciferol (Vitamin D [address]75 Unit), 1 CAP PO WK Fluticasone Propionate (Flovent Hfa), 2 PUFFS INH BID Fosaprepitant Dimeglumine (Emend), 75 MG IV WK Gabapentin (Neurontin), 300 MG PO TID Iron Sucrose (Venofer), 200 MG IV DIRECTED Levetiracetam (Keppra), 1,000 MG PO BID Lisinopril (Zestril), 10 MG PO DAILY Lorazepam (Ativan), 1 MG PO TID Mirtazapine (Remeron), 15 MG PO HS Pediatric Multiple Vitamin W/ (Flintstones Gummies), 1 TAB PO BID Potassium Chloride Microencaps (Potassium Chloride Er), 20 MEQ PO DAILY Sertraline Hcl (Zoloft), 100 MG PO DAILY Thiamine Hcl (Vitamin B-1), 50 MG PO DAILY Topiramate (Topamax), 150 MG PO BID Zinc (Zinc), 50 MG PO DAILY Zolpidem Tartrate (Zolpidem Tartrate), 10 MG PO HS [Adek], 1 TAB PO DAILY AT NOON Scheduled PRN Acetaminophen (Tylenol), 1,000 MG PO Q6H PRN for Pain Albuterol Sulfate (Proventil Hfa), 2 PUFFS INH Q4H PRN for SOB/Wheezing Ondansetron (Ondansetron Odt), 8 MG PO Q8 PRN for Nausea Polyethylene Glycol 3350 (Miralax), 17 GM PO DAILY PRN for Constipation Rizatriptan Benzoate (Maxalt), 10 MG PO UD PRN for Migraine Triamcinolone Acet (Aristocort 0.1%), 1 APPLN TOP BID PRN for Itching Valacyclovir (Valtrex), 500 MG PO BID PRN for Outbreaks Allergies Coded Allergies: Morphine (Verified Allergy, Severe, TONGUE SWELLING, difficulty breathing/ wheezing, 10/08/17) tolerates hydromorphone Colestipol (Verified Allergy, Intermediate, red rash (no itching), 10/08/17 ) Cat Dander (Verified Allergy, Unknown, ITCHY WATERY EYES , 10/08/17) NUTS (Verified Allergy, Unknown, skin test showed nut allergy, 10/08/17) per pt, eats peanuts without issue Scopolamine (Verified Adverse Reaction, Severe, Seizure, 10/08/17) SEIZURES ONLY WHEN COMBINED W/ WELLBUTRIN. Promethazine (Verified Adverse Reaction, Intermediate, "CAN'T SIT STILL", 10/08/17) Bupropion (Verified Adverse Reaction, Unknown, Seizure, 10/08/17) SEIZURES WHEN WELLBUTRIN IS COMBINED W/ SCOPALAMINE. Physical Exam Vital Signs Date Time Temp Pulse Resp B/P (MAP) Pulse Ox O2 Delivery O2 Flow Rate FiO2 10/08/17 20:24 72 16 124/77 97 10/08/17 18:28 67 18 147/96 96 Room Air 10/08/17 16:41 36.9 76 18 153/107 97 Room Air Physical Exam GENERAL: Patient is in no acute distress. HEENT: No acute trauma, normocephalic atraumatic, mucous membranes dry, no nasal congestion, no scleral icterus. NECK: No stridor, no adenopathy, no meningismus, trachea is midline. LUNGS: Clear to auscultation bilaterally, no wheeze, no rhonchi, breath sounds equal. HEART: Without murmurs gallops or rubs, regular rate and rhythm. ABDOMEN: Soft, mildly tender in right lower quadrant although, pain seems to lessen with deeper palpation, bowel sounds positive, no hernias, no peritonitis. EXTREMITIES: No cyanosis or edema, full range of motion of all the joints without pain or difficulty, no signs for acute trauma. NEUROLOGIC: Oriented x 3, no acute motor or sensory deficits, no focal weakness. SKIN: No rash, no jaundice, no diaphoresis. Medical Decision & Procedures ER Provider Diagnostic Interpretation: Radiology results as stated below per my review and radiologist interpretation: ABDOMEN 2VIEW W/PA CHEST RTN HISTORY: 42 years-old Female ABDOMINAL PAIN/GI acute generalized abdominal pain COMPARISON: Chest radiograph 08/10/2017, CT 10/01/2017 TECHNIQUE: PA view the chest with erect and supine views of the abdomen FINDINGS: Cardiac mediastinal and hilar silhouettes are within normal limits. Left subclavian [id number]-[id number] catheter appears unchanged. No pneumothorax, pleural effusion, focal airspace consolidation or overt pulmonary edema. Degenerative changes are seen within the shoulders and spine. No pneumoperitoneum on the upright projection. Cholecystectomy clips noted. Multiple dilated loops of large bowel are noted with air-fluid levels. No definite small bowel obstruction identified. Calcifications of the pelvis suggest phleboliths. No definite urolith identified. Surgical suture material is noted within the left midabdomen. No fracture. IMPRESSION: 1. No acute process of the chest. 2. No pneumoperitoneum or evidence of small bowel obstruction. 3. Persistent dilated loops of large bowel appears unchanged from comparison CT 10/01/2017. The above report was generated using voice recognition software. It may contain grammatical, syntax or spelling errors. Electronically signed by: Mp Singleton M.D. 10/08/2017 6:31 PM Dictated Date/Time: 10/08/2017 6:29 PM Laboratory Results 10/08/17 17:30 Red Blood Count 3.68, Mean Corpuscular Volume 94.3, Mean Corpuscular Hemoglobin 31.5, Mean Corpuscular Hemoglobin Concent 33.4, Mean Platelet Volume 9.7, Neutrophils (%) (Auto) 65.5, Lymphocytes (%) (Auto) 25.2, Monocytes (%) (Auto) 8.1, Eosinophils (%) (Auto) 1.0, Basophils (%) (Auto) 0.0, Neutrophils # (Auto) 3.82, Lymphocytes # (Auto) 1.47, Monocytes # (Auto) 0.47, Eosinophils # (Auto) 0.06, Basophils # (Auto) 0.00 10/08/17 17:30 Test 10/08/17 17:30 White Blood Count 5.83 K/uL (4.8-10.8) Red Blood Count 3.68 M/uL (4.2-5.4) Hemoglobin 11.6 g/dL (12.0-16.0) Hematocrit 34.7 % (37-47) Mean Corpuscular Volume 94.3 fL (80-100) Mean Corpuscular Hemoglobin 31.5 pg (25-34) Mean Corpuscular Hemoglobin Concent 33.4 g/dl (32-36) Platelet Count 159 K/uL (130-400) Mean Platelet Volume 9.7 fL (7.4-10.4) Neutrophils (%) (Auto) 65.5 % Lymphocytes (%) (Auto) 25.2 % Monocytes (%) (Auto) 8.1 % Eosinophils (%) (Auto) 1.0 % Basophils (%) (Auto) 0.0 % Neutrophils # (Auto) 3.82 K/uL (1.4-6.5) Lymphocytes # (Auto) 1.47 K/uL (1.2-3.4) Monocytes # (Auto) 0.47 K/uL (0.11-0.59) Eosinophils # (Auto) 0.06 K/uL (0-0.5) Basophils # (Auto) 0.00 K/uL (0-0.2) RDW Standard Deviation 56.6 fL (36.4-46.3) RDW Coefficient of Variation 16.2 % (11.5-14.5) Immature Granulocyte % (Auto) 0.2 % Immature Granulocyte # (Auto) 0.01 K/uL (0.00-0.02) Urine Color YELLOW Urine Appearance CLEAR (CLEAR) Urine pH 5.5 (4.5-7.5) Urine Specific [address] 1.016 (1.000-1.030) Urine Protein NEG (NEG) Urine Glucose (UA) NEG (NEG) Urine Ketones NEG (NEG) Urine Occult Blood NEG (NEG) Urine Nitrite NEG (NEG) Urine Bilirubin NEG (NEG) Urine Urobilinogen NEG (NEG) Urine Leukocyte Esterase NEG (NEG) Anion Gap 7.0 mmol/L (3-11) Est Creatinine Clear Calc Drug Dose 111.7 ml/min Estimated GFR () 123.0 Estimated GFR (Non- 106.1 BUN/Creatinine Ratio 11.2 (10-20) Calcium Level 8.0 mg/dl (8.5-10.1) Total Bilirubin 0.3 mg/dl (0.2-1) Aspartate Amino Transf (AST/SGOT) 32 U/L (15-37) Alanine Aminotransferase (ALT/SGPT) 57 U/L (12-78) Alkaline Phosphatase 141 U/L (45-117) Total Protein 6.4 gm/dl (6.4-8.2) Albumin 3.1 gm/dl (3.4-5.0) Globulin 3.3 gm/dl (2.5-4.0) Albumin/Globulin Ratio 0.9 (0.9-2) Lipase 274 U/L (73-393) Human Chorionic Gonadotropin, Qual NEG (NEG) Laboratory results reviewed by me. Medications Administered Medications (Trade) Dose Ordered Sig/Rigo Route Start Time Stop Time Status Last Admin Dose Admin Prochlorperazine Edisylate (Compazine Inj) 10 mg NOW STAT IV 10/08/17 17:15 18 17:20 DC 18 17:40 10 MG Sodium Chloride 1,000 ml @ 999 mls/hr Q1H1M STAT IV 10/08/17 17:15 18 18:15 DC 10/08/17 17:27 999 MLS/HR Ketorolac Tromethamine (Toradol Inj) 30 mg NOW STAT IV 10/08/17 17:15 10/08/17 17:20 DC 10/08/17 17:40 30 MG Diphenhydramine HCl (Benadryl Inj) 50 mg NOW STAT IV 10/08/17 17:15 10/08/17 17:20 DC 10/08/17 17:39 50 MG Prochlorperazine Edisylate (Compazine Inj) 10 mg NOW STAT IV 10/08/17 19:08 10/08/17 19:10 DC 10/08/17 19:21 10 MG Hydromorphone HCl (Dilaudid Inj) 0.5 mg NOW STAT IV 10/08/17 19:08 10/08/17 19:10 DC 10/08/17 19:22 0.5 MG Sodium Chloride 1,000 ml @ 999 mls/hr Q1H1M STAT IV 10/08/17 19:08 10/08/17 20:08 DC 10/08/17 19:08 999 MLS/HR Heparin Sodium (Porcine) (Heparin 100 Unit/ml 5ml Flush) 5 ml STK-MED ONCE .ROUTE 10/08/17 20:22 10/08/17 20:23 DC 10/08/17 20:22 5 ML ED Course 1704: The patient was evaluated in room A09B. A complete history and physical exam was performed. 1715: Ordered Benadryl Injection 50 mg IV, Toradol Injection 30 mg IV, Sodium Chloride 1000 ml @ 999 mls/hr IV, Compazine Injection 10 mg IV. 1907: I reevaluated the patient and she is feeling better. I will order more fluids. 1907: Ordered Sodium Chloride 1000 ml @ 999 mls/hr IV, Dilaudid Injection 0.5 mg IV, Compazine Injection 10 mg IV. 2013: Reevaluated the patient. Discussed results and discharge instructions: She verbalized understanding and agreement. The patient is ready for discharge. Medical Decision The patient is a 42 year old female who presents to the Emergency Room with complaints of constant right lower quadrant abdominal pain that started a couple of days ago. Differential diagnoses considered include dehydration, electrolyte, anemia, UTI, appendicitis, diverticulitis, gastric bypass syndrome flair up, medication reaction, food borne or viral intestinal reaction. There is no leukocytosis or concerning anemia. No significant electrolyte abnormality, kidney failure, hepatitis or pancreatitis. Urinalysis does not show infection or significant hematuria. Obstruction series shows no bowel obstruction, free air or pneumonia. On my exam, the patient did not have evidence for peritonitis. The patient received IV saline, IV Toradol, IV Compazine and IV Benadryl. She received a second dose of IV Compazine and a small dose of IV Dilaudid. She was given a second liter of IV saline. The patient is feeling improved. I do not think she requires another CT scan of her abdomen and pelvis. She has been seen before for this discomfort. She has a history of gastric bypass syndrome. Nothing on her laboratory workup suggests an acute surgical process. I do think she can return if worsening. She is being discharged home. Medication Reconcilliation Current Medication List: was personally reviewed by me Blood Pressure Screening Patient's blood pressure: Elevated blood pressure Blood pressure disposition: Elevated BP felt to be situational Impression Primary Impression: Dehydration Additional Impressions: RLQ abdominal pain Nausea, vomiting, and diarrhea Scribe Attestation The scribe's documentation has been prepared under my direction and personally reviewed by me in its entirety. I confirm that the note above accurately reflects all work, treatment, procedures, and medical decision making performed by me. Departure Information Dispostion Home / Self-Care Referrals Marivel Harrell MD (PCP) Forms HOME CARE DOCUMENTATION FORM, IMPORTANT VISIT INFORMATION Patient Instructions My [facility] Additional Instructions care as before see or talk with GI tomorrow about your symptoms lab work was all ok xray was ok return for fever or worsening symptoms Problem Qualifiers
[2017-10-08 17:35] LABS: EOS ABS # 0.06 K/uL (0-0.5); HEMATOCRIT 34.7 % (37-47); HEMOGLOBIN 11.6 g/dL (12.0-16.0); IG# 0.01 K/uL (0.00-0.02); LYMPH % 25.2 %; LYMPH ABS # 1.47 K/uL (1.2-3.4); MEAN CELL VOLUME 94.3 fL (80-100); MEAN CORPUSCULAR HEMOGLOBIN 31.5 pg (25-34); MEAN CORPUSCULAR HGB CONC 33.4 g/dl (32-36); MEAN PLATELET VOLUME 9.7 fL (7.4-10.4); MONO % 8.1 %; MONO ABS # 0.47 K/uL (0.11-0.59); NEUT % 65.5 %; NEUT ABS # 3.82 K/uL (1.4-6.5); PLATELET COUNT 159 K/uL (130-400); RED CELL DISTRIBUTION WIDTH CV 16.2 % (11.5-14.5); RED CELL DISTRIBUTION WIDTH SD 56.6 fL (36.4-46.3); WHITE BLOOD COUNT 5.83 K/uL (4.8-10.8)
[2017-10-08 17:56] LABS: ALBUMIN 3.1 gm/dl (3.4-5.0); CREATININE 0.7 mg/dl (0.60-1.20); POTASSIUM 3.4 mmol/L (3.5-5.1)
[2017-10-08 17:59] LABS: TOTAL PROTEIN 6.4 gm/dl (6.4-8.2)
--- NOTE | 2017-10-08 18:32 | DIAGNOSTIC IMAGING REPORT ---
ABDOMEN 2VIEW W/PA CHEST RTN HISTORY: 42 years-old Female ABDOMINAL PAIN/GI acute generalized abdominal pain COMPARISON: Chest radiograph 08/10/2017, CT 10/01/2017 TECHNIQUE: PA view the chest with erect and supine views of the abdomen FINDINGS: Cardiac mediastinal and hilar silhouettes are within normal limits. Left subclavian [id number]-[id number] catheter appears unchanged. No pneumothorax, pleural effusion, focal airspace consolidation or overt pulmonary edema. Degenerative changes are seen within the shoulders and spine. No pneumoperitoneum on the upright projection. Cholecystectomy clips noted. Multiple dilated loops of large bowel are noted with air-fluid levels. No definite small bowel obstruction identified. Calcifications of the pelvis suggest phleboliths. No definite urolith identified. Surgical suture material is noted within the left midabdomen. No fracture. IMPRESSION: 1. No acute process of the chest. 2. No pneumoperitoneum or evidence of small bowel obstruction. 3. Persistent dilated loops of large bowel appears unchanged from comparison CT 10/01/2017. The above report was generated using voice recognition software. It may contain grammatical, syntax or spelling errors. Electronically signed by: Mp Singleton M.D. 10/08/2017 6:31 PM Dictated Date/Time: 10/08/2017 6:29 PM
[2017-10-08] MEDS ORDERED: HYDROmorphone INJ 2 MG/ML SYR/VIAL IV STA (19:08)
[2017-10-08] MEDS ORDERED: HYDROmorphone INJ 0.5 MG/0.5 ML SYR ONE (19:17)
[2017-10-08] MEDS ORDERED: KPP/1000 PO (19:27)
[2017-10-08] MEDS ORDERED: COPP1TAB PO (19:27)
[2017-10-08] MEDS ORDERED: ADEK PO (19:27)
[2017-10-08] MEDS ORDERED: ZINC50TA3 PO (19:27)
[2017-10-08 20:24] VITALS: BP 124/77; PULSE 72; O2SAT 97
== END 2017-10-08 20:30 | disposition home or self-care (01) ==
LOC: C.EDB 16:30 → C.EDA 20:30
DX: E86.0 Dehydration (principal); R10.31 Right lower quadrant pain; K21.9 Gastro-esophageal reflux disease without esophagitis; E78.5 Hyperlipidemia, unspecified; Z98.84 Bariatric surgery status; J45.909 Unspecified asthma, uncomplicated; F31.9 Bipolar disorder, unspecified; F43.10 Post-traumatic stress disorder, unspecified; Z90.49 Acquired absence of other specified parts of digestive tract; Z90.710 Acquired absence of both cervix and uterus; Z90.721 Acquired absence of ovaries, unilateral; Z90.79 Acquired absence of other genital organ(s); Z80.1 Family history of malignant neoplasm of trachea, bronchus and lung; Z83.3 Family history of diabetes mellitus; Z82.49 Family history of ischemic heart disease and other diseases of the circulatory system; Z82.3 Family history of stroke; Z79.899 Other long term (current) drug therapy; Z88.5 Allergy status to narcotic agent; Z91.018 Allergy to other foods; Z88.8 Allergy status to other drugs, medicaments and biological substances; Z91.048 Other nonmedicinal substance allergy status

== ENCOUNTER 2017-10-10 10:42 | Emergency (ER) | payer OTHER ==
[~2017-10-10] VITALS: Ht 157.5 cm; Wt 93.5 kg
[~2017-10-10 10:42] MED LIST changes: +ADEK PO; +COPP1TAB PO; +KPP/1000 PO; -LEVE500T13 PO; -SEIZURE MED PO; +ZINC50TA3 PO; -copper PO; -zinc PO
[2017-10-10 10:50] VITALS: TEMP 36.7; Ht 157.5 cm; Wt 93.5 kg
--- NOTE | 2017-10-10 12:01 | EMERGENCY ROOM VISIT NOTE ---
History Report prepared by Jacqueline: Yanira Romero Under the Supervision of: Dr. Fady Hoang M.D. First contact with patient: 11:41 Chief Complaint: MENTAL HEALTH EVALUATION Stated Complaint: DEPRESSION History of Present Illness The patient is a 42 year old female who presents to the Emergency Room of a mental health evaluation. The patient states that she injected heroin into her port last night. The patient states she did not flush port after injecting the heroin. The patient states she does not remember if she was trying to hurt herself. The patient states she does not remember most of last night. She reports taking half a months prescription worth of Ambien and Ativan last night. She does not remember taking the medications. She states she is aware she took t he medications because they were missing from her prescription bottles. The patient states she been depressed recently. Presently, the patient denies wanting to hurt herself. The patient notes feeling fatigued and nauseous but she denies any pain or other symptoms. The patient has an appointment with her neurologist yesterday and was told they were going to stop draining the cyst on her brain. Source of History: patient Onset: last night Position: other (port) Quality: other (injected herion ) Timing: other (episode) Associated Symptoms: + nausea, + fatigue Review of Systems See HPI for pertinent positives & negatives. A total of 10 systems reviewed and were otherwise negative. 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 (17) PTSD (18) Tubal ligation evaluation Surgical Problems: (1) excessive skin removal (2) gastric revision procedure with gastric bypass (3) H/O colonoscopy (4) H/O esophagogastroduodenoscopy (5) H/O exploratory laparotomy (6) H/O gastric bypass (7) H/O ventral hernia repair (8) H/O wisdom tooth extraction (9) lysis of adhesions (10) S/P cholecystectomy (11) S/P endometrial ablation (12) S/P laparoscopic hysterectomy (13) S/P panniculectomy (14) S/P partial gastrectomy (15) Status post unilateral salpingo-oophorectomy (16) wedge biopsy liver Social History Problems: (1) Gastroesophageal reflux disease (2) Hyperlipidemia Family History Cancer MOTHER (lung) Diabetes mellitus FATHER FH: gallbladder disease FH: lung disease FHx: heart disease FATHER Hypertension MOTHER Stroke FATHER Social History Smoking Status: Never Smoker Alcohol Use: none Drug Use: none Marital Status: , in relationship Housing Status: lives with significant other Occupation Status: employed Current/Historical Medications Scheduled Aripiprazole (Abilify), 20 MG PO DAILY Cholecalciferol (Vitamin D3), 1 TAB PO DAILY Ciprofloxacin Tab (Cipro), Unknown Dose PO BID Copper Gluconate (Copper), 3 MG PO DAILY Cyanocobalamin (Cyanocobalamin), 1,000 MCG IM Q3 MONTHS Ergocalciferol (Vitamin D 53596 Unit), 1 CAP PO WK Fluticasone Propionate (Flovent Hfa), 2 PUFFS INH BID Fosaprepitant Dimeglumine (Emend), 75 MG IV WK Gabapentin (Neurontin), 300 MG PO TID Iron Sucrose (Venofer), 200 MG IV DIRECTED Levetiracetam (Keppra), 1,000 MG PO BID Lisinopril (Zestril), 10 MG PO DAILY Lorazepam (Ativan), 1 MG PO TID Mirtazapine (Remeron), 15 MG PO HS Pediatric Multiple Vitamin W/ (Flintstones Gummies), 1 TAB PO BID Potassium Chloride Microencaps (Potassium Chloride Er), 20 MEQ PO DAILY Sertraline Hcl (Zoloft), 100 MG PO DAILY Thiamine Hcl (Vitamin B-1), 50 MG PO DAILY Topiramate (Topamax), 150 MG PO BID Zinc (Zinc), 50 MG PO DAILY Zolpidem Tartrate (Zolpidem Tartrate), 10 MG PO HS [Adek], 1 TAB PO DAILY AT NOON Scheduled PRN Acetaminophen (Tylenol), 1,000 MG PO Q6H PRN for Pain Albuterol Sulfate (Proventil Hfa), 2 PUFFS INH Q4H PRN for SOB/Wheezing Ondansetron (Ondansetron Odt), 8 MG PO Q8 PRN for Nausea Polyethylene Glycol 3350 (Miralax), 17 GM PO DAILY PRN for Constipation Rizatriptan Benzoate (Maxalt), 10 MG PO UD PRN for Migraine Triamcinolone Acet (Aristocort 0.1%), 1 APPLN TOP BID PRN for Itching Valacyclovir (Valtrex), 500 MG PO BID PRN for Outbreaks Allergies Coded Allergies: Morphine (Verified Allergy, Severe, TONGUE SWELLING, difficulty breathing/ wheezing, 10/08/17) tolerates hydromorphone Colestipol (Verified Allergy, Intermediate, red rash (no itching), 10/08/17 ) Cat Dander (Verified Allergy, Unknown, ITCHY WATERY EYES , 10/08/17) NUTS (Verified Allergy, Unknown, skin test showed nut allergy, 10/08/17) per pt, eats peanuts without issue Scopolamine (Verified Adverse Reaction, Severe, Seizure, 10/08/17) SEIZURES ONLY WHEN COMBINED W/ WELLBUTRIN. Promethazine (Verified Adverse Reaction, Intermediate, "CAN'T SIT STILL", 10/08/17) Bupropion (Verified Adverse Reaction, Unknown, Seizure, 10/08/17) SEIZURES WHEN WELLBUTRIN IS COMBINED W/ SCOPALAMINE. Physical Exam Vital Signs Date Time Temp Pulse Resp B/P (MAP) Pulse Ox O2 Delivery O2 Flow Rate FiO2 10/10/17 16:04 73 18 152/109 99 10/10/17 15:49 73 18 152/109 99 Room Air 10/10/17 14:33 78 18 116/81 99 10/10/17 12:26 87 18 143/92 98 Room Air 10/10/17 10:50 36.7 74 18 152/102 100 Room Air Physical Exam GENERAL: Patient is well appearing and in no acute distress. EYES: No scleral icterus, unremarkable pupils. ENT: Mucous membranes moist, no nasal congestion. NECK: No masses appreciated, no meningismus, trachea is midline. RESPIRATORY: No dyspnea. Clear to auscultation and equal bilaterally. No wheeze , no rhonchi. CARDIOVASCULAR: Regular rate and rhythm. No murmurs, rubs, gallops appreciated. CHEST: Mediport in left upper chest, no signs of infection. GASTROINTESTINAL: Abdomen soft, nontender, no peritonitis. Bowel sounds positive. No masses appreciated. BACK: No midline tenderness, no CVA tenderness EXTREMITIES: Varying aged bruises of bilateral arms. Normal motion all extremities, no cyanosis, no edema. NEUROLOGIC: Alert and oriented, no acute motor or sensory deficits, no focal weakness, cranial nerves grossly intact. SKIN: No rash, no jaundice, no diaphoresis. Medical Decision & Procedures Laboratory Results 10/10/17 12:17 Red Blood Count 3.46, Mean Corpuscular Volume 93.9, Mean Corpuscular Hemoglobin 31.5, Mean Corpuscular Hemoglobin Concent 33.5, Mean Platelet Volume 9.8, Neutrophils (%) (Auto) 57.2, Lymphocytes (%) (Auto) 30.7, Monocytes (%) (Auto) 11.0, Eosinophils (%) (Auto) 0.9, Basophils (%) (Auto) 0.2, Neutrophils # (Auto ) 2.59, Lymphocytes # (Auto) 1.39, Monocytes # (Auto) 0.50, Eosinophils # (Auto ) 0.04, Basophils # (Auto) 0.01 10/10/17 12:17 Test 10/10/17 11:02 10/10/17 12:17 Urine Color YELLOW Urine Appearance CLEAR (CLEAR) Urine pH 5.0 (4.5-7.5) Urine Specific [place] 1.019 (1.000-1.030) Urine Protein NEG (NEG) Urine Glucose (UA) NEG (NEG) Urine Ketones NEG (NEG) Urine Occult Blood NEG (NEG) Urine Nitrite NEG (NEG) Urine Bilirubin NEG (NEG) Urine Urobilinogen NEG (NEG) Urine Leukocyte Esterase NEG (NEG) Urine WBC (Auto) 1-5 /hpf (0-5) Urine RBC (Auto) 0-4 /hpf (0-4) Urine Hyaline Casts (Auto) 1-5 /lpf (0-5) Urine Epithelial Cells (Auto) 10-20 /lpf (0-5) Urine Bacteria (Auto) NEG (NEG) Urine Test NEG (NEG) Urine Opiates Screen NEG (NEG) Urine Methadone, Qualitative NEG (NEG) Urine Barbiturates NEG (NEG) Urine Phencyclidine (PCP) Level NEG (NEG) Ur Amphetamine/Methamphetamine NEG (NEG) MDMA (Ecstasy) Screen NEG (NEG) Urine Benzodiazepines Screen NEG (NEG) Urine Cocaine Metabolite NEG (NEG) Urine Marijuana (THC) NEG (NEG) White Blood Count 4.53 K/uL (4.8-10.8) Red Blood Count 3.46 M/uL (4.2-5.4) Hemoglobin 10.9 g/dL (12.0-16.0) Hematocrit 32.5 % (37-47) Mean Corpuscular Volume 93.9 fL (80-100) Mean Corpuscular Hemoglobin 31.5 pg (25-34) Mean Corpuscular Hemoglobin Concent 33.5 g/dl (32-36) Platelet Count 151 K/uL (130-400) Mean Platelet Volume 9.8 fL (7.4-10.4) Neutrophils (%) (Auto) 57.2 % Lymphocytes (%) (Auto) 30.7 % Monocytes (%) (Auto) 11.0 % Eosinophils (%) (Auto) 0.9 % Basophils (%) (Auto) 0.2 % Neutrophils # (Auto) 2.59 K/uL (1.4-6.5) Lymphocytes # (Auto) 1.39 K/uL (1.2-3.4) Monocytes # (Auto) 0.50 K/uL (0.11-0.59) Eosinophils # (Auto) 0.04 K/uL (0-0.5) Basophils # (Auto) 0.01 K/uL (0-0.2) RDW Standard Deviation 54.8 fL (36.4-46.3) RDW Coefficient of Variation 15.9 % (11.5-14.5) Immature Granulocyte % (Auto) 0.0 % Immature Granulocyte # (Auto) 0.00 K/uL (0.00-0.02) Anion Gap 8.0 mmol/L (3-11) Est Creatinine Clear Calc Drug Dose 164.4 ml/min Estimated GFR () 140.2 Estimated GFR (Non- 121.0 BUN/Creatinine Ratio 13.0 (10-20) Calcium Level 6.8 mg/dl (8.5-10.1) Total Bilirubin 0.4 mg/dl (0.2-1) Aspartate Amino Transf (AST/SGOT) 18 U/L (15-37) Alanine Aminotransferase (ALT/SGPT) 35 U/L (12-78) Alkaline Phosphatase 108 U/L (45-117) Total Protein 5.0 gm/dl (6.4-8.2) Albumin 2.5 gm/dl (3.4-5.0) Globulin 2.5 gm/dl (2.5-4.0) Albumin/Globulin Ratio 1.0 (0.9-2) Salicylates Level < 1.7 mg/dl (2.8-20) Acetaminophen Level 2 ug/ml (10-30) Ethyl Alcohol mg/dL < 3.0 mg/dl (0-3) Laboratory results as reviewed by me. ED Course 1150: The patient was evaluated in room A7. A complete history and physical exam was performed. 1428: On reassessment the patient is feeling fine. She denies any homicidal or suicidal ideations. Awaiting mental health evaluation. 1500: Reevaluated the patient. Discussed results and discharge instructions: She verbalized understanding and agreement. The patient is ready for discharge. Medical Decision Differential: Mood Disorder, Overdose, Infectious, Electrolyte Abnormality, Cardiac, Hepatic, Endocrine, Toxicologic, Neurologic, amongst other pathologies entertained. 42 yr old female IV drug abuser who is on chronic anti-nausea medication infusions through left upper chest medi-port. She is brought in by trimming caser after heroin binge last night during which she injected directly in to port. Admits non-sterile and no flush. She does not remember much after this but notes half her medications are missing this morning. She denies recent nor current suicidal thoughts/plans, denies she was trying to harm self last night. Denies need for inpatient treatment. I discussed this with her several times and each time she is adamant she is not planning on killing herself. I had several long talks with her about how dangerous it is that she is using her port in this way and we even reviewed many of the ways this could cause further pain for her. I asked to call her GI physician to review this though she declines and states he is aware. At this time I do not feel there is any reason to keep her against her will. Her labs are a bit off though consistent with not eating since yesterday and then heroin binge overnight. BSG normal after eating meal tray. Stable and breathing comfortably. I would be anxious starting her on further medications given her already extensive history thus we discussed proper diet which she is amenable to. She is aware she can return at any time if worsening or other concerns. Medication Reconcilliation Current Medication List: was personally reviewed by me Blood Pressure Screening Patient's blood pressure: Normal blood pressure Impression Primary Impression: Heroin abuse Additional Impressions: Drug abuse and dependence Medical non-compliance Dehydration Scribe Attestation The scribe's documentation has been prepared under my direction and personally reviewed by me in its entirety. I confirm that the note above accurately reflects all work, treatment, procedures, and medical decision making performed by me. Departure Information Dispostion Home / Self-Care Referrals Marivel Harrell MD (PCP) Patient Instructions My [facility] Additional Instructions Stop using your medi-port for Heroin injection. This risks many things that could cause permanent injury or even . We are always here for help and if you feel you are at risk of harming yourself or others call 911 or return immediately. Your labs were consistent with not eating/drinking well enough. It is important you are keeping a well balanced diet and fluid intake. Problem Qualifiers
[2017-10-10 12:32] LABS: BASO % 0.2 %; BASO ABS # 0.01 K/uL (0-0.2); EOS % 0.9 %; EOS ABS # 0.04 K/uL (0-0.5); HEMATOCRIT 32.5 % (37-47); HEMOGLOBIN 10.9 g/dL (12.0-16.0); LYMPH % 30.7 %; LYMPH ABS # 1.39 K/uL (1.2-3.4); MEAN CELL VOLUME 93.9 fL (80-100); MEAN CORPUSCULAR HEMOGLOBIN 31.5 pg (25-34); MEAN CORPUSCULAR HGB CONC 33.5 g/dl (32-36); MEAN PLATELET VOLUME 9.8 fL (7.4-10.4); NEUT % 57.2 %; NEUT ABS # 2.59 K/uL (1.4-6.5); PLATELET COUNT 151 K/uL (130-400); RED CELL DISTRIBUTION WIDTH CV 15.9 % (11.5-14.5); RED CELL DISTRIBUTION WIDTH SD 54.8 fL (36.4-46.3); WHITE BLOOD COUNT 4.53 K/uL (4.8-10.8)
[2017-10-10 12:58] LABS: ALBUMIN 2.5 gm/dl (3.4-5.0); CALCIUM 6.8 mg/dl (8.5-10.1); CREATININE 0.47 mg/dl (0.60-1.20); POTASSIUM 2.9 mmol/L (3.5-5.1)
[2017-10-10 16:04] VITALS: BP 152/109; PULSE 73; O2SAT 99
== END 2017-10-10 15:50 | disposition home or self-care (01) ==
LOC: C.EDB 10:44 → C.EDA 15:50
DX: F11.10 Opioid abuse, uncomplicated (principal); F19.10 Other psychoactive substance abuse, uncomplicated; F19.21 Other psychoactive substance dependence, in remission; Z91.19 Patient's noncompliance with other medical treatment and regimen; E86.0 Dehydration; Z95.828 Presence of other vascular implants and grafts; F40.00 Agoraphobia, unspecified; J45.909 Unspecified asthma, uncomplicated; F31.9 Bipolar disorder, unspecified; D64.9 Anemia, unspecified; R10.2 Pelvic and perineal pain; G89.29 Other chronic pain; K56.699 Other intestinal obstruction unspecified as to partial versus complete obstruction; E66.3 Overweight; E78.5 Hyperlipidemia, unspecified; K21.9 Gastro-esophageal reflux disease without esophagitis; Q61.3 Polycystic kidney, unspecified; K91.1 Postgastric surgery syndromes; F43.10 Post-traumatic stress disorder, unspecified; Z98.51 Tubal ligation status; Z98.84 Bariatric surgery status; Z90.49 Acquired absence of other specified parts of digestive tract; Z90.3 Acquired absence of stomach [part of]; Z90.710 Acquired absence of both cervix and uterus; Z90.721 Acquired absence of ovaries, unilateral; Z83.3 Family history of diabetes mellitus; Z82.49 Family history of ischemic heart disease and other diseases of the circulatory system; Z88.5 Allergy status to narcotic agent; Z88.8 Allergy status to other drugs, medicaments and biological substances; Z91.048 Other nonmedicinal substance allergy status; Z91.018 Allergy to other foods

== ENCOUNTER 2017-10-27 13:20 | Inpatient (IN) | payer OTHER ==
[~2017-10-27] VITALS: Ht 157.5 cm; Wt 95.0 kg
[~2017-10-27 13:20] MED LIST changes: -CIPR1TAB11 PO
--- NOTE | 2017-10-27 13:46 | EMERGENCY ROOM VISIT NOTE ---
History Report prepared by Jacqueline: Finesse Landry Under the Supervision of: Dr. Atilio Santiago D.O. First contact with patient: 13:26 Chief Complaint: MENTAL HEALTH EVALUATION Stated Complaint: MR History of Present Illness The patient is a 42 year old female with bipolar 1 disorder who presents to the Emergency Room via EMS with complaints of multiple overdoses over the past week. Per the psych continuous pillowcase cutter, the patient has taken 64 Ativan in the past 4 days, and has a history of frequent overdoses, in an attempt to intentionally hurt herself. She has also been injecting heroin into her port. The patient claims that she has stashes of Ativan at home, and at some point will with her overdosing. The patient is voluntary at this point, per the psych continuous pillowcase cutter. The patient states that she has been feeling depressed recently, and her nurse came to her home, and felt that the patient was suicidal. The patient states that she made a statement to the nurse that if someone killed her that she would not be upset. She notes that she has suicidal ideations but does not feel like she would hurt herself currently. The patient states that she is taking too much Ativan, and has taken 10 pills over the past 24 hours. She is prescribed 3 pills per day. She notes that she last injected Heroin last week. The patient states that she has a mobile psych worker that she sees every week. Source of History: patient, other (psych continuous pillowcase cutter) Onset: Over past week Position: other (global) Symptom Intensity: 64 Ativan in past 4 days, shooting heroin into port Quality: other (overdoses) Timing: other (frequent, multiple) Note: Feeling depressed. Admits SI but does not thinks she will kill herself. Review of Systems See HPI for pertinent positives & negatives. A total of 10 systems reviewed and were otherwise negative. Past Medical & Surgical Medical Problems: (1) a-port placement (2) Abdominal pain (3) Agoraphobia (4) Asthma (5) Bipolar I disorder (6) Chronic anemia (7) Chronic pelvic pain in female (8) Dynamic ileus (9) H/O drug abuse (10) Heavy menstrual bleeding (11) History of esophageal dilatation (12) Ileus (13) MRSA (14) Obesity (15) Opiate addiction (16) Polycystic kidney disease, adult type (17) Post Gastric Bypass Syndrome (18) Postgastric surgery syndrome (19) PTSD (20) Seizure disorder (21) Tubal ligation evaluation Surgical Problems: (1) excessive skin removal (2) gastric revision procedure with gastric bypass (3) H/O colonoscopy (4) H/O esophagogastroduodenoscopy (5) H/O exploratory laparotomy (6) H/O gastric bypass (7) H/O ventral hernia repair (8) H/O wisdom tooth extraction (9) lysis of adhesions (10) S/P cholecystectomy (11) S/P endometrial ablation (12) S/P laparoscopic hysterectomy (13) S/P panniculectomy (14) S/P partial gastrectomy (15) Status post unilateral salpingo-oophorectomy (16) wedge biopsy liver Social History Problems: (1) Gastroesophageal reflux disease (2) Hyperlipidemia Family History Cancer MOTHER (lung) Diabetes mellitus FATHER FH: gallbladder disease FH: lung disease FHx: heart disease FATHER Hypertension MOTHER Stroke FATHER Social History Smoking Status: Never Smoker Alcohol Use: none Drug Use: none Marital Status: , in relationship Housing Status: lives with significant other Occupation Status: employed Current/Historical Medications Scheduled Aripiprazole (Abilify), 20 MG PO HS Cholecalciferol (Vitamin D3), 1 TAB PO DAILY Copper Gluconate (Copper), 3 MG PO DAILY Cyanocobalamin (Cyanocobalamin), 1,000 MCG IM Q3 MONTHS Ergocalciferol (Vitamin D 90769 Unit), 1 CAP PO WK Fluticasone Propionate (Flovent Hfa), 2 PUFFS INH BID Fosaprepitant Dimeglumine (Emend), 75 MG IV WK Gabapentin (Neurontin), 300 MG PO TID Iron Sucrose (Venofer), 200 MG IV DIRECTED Levetiracetam (Keppra), 1,000 MG PO BID Lisinopril (Zestril), 10 MG PO DAILY Mirtazapine (Remeron), 15 MG PO HS Pediatric Multiple Vitamin W/ (Flintstones Gummies), 1 TAB PO BID Potassium Chloride Microencaps (Potassium Chloride Er), 20 MEQ PO DAILY Sertraline Hcl (Zoloft), 50 MG PO DAILY Thiamine Hcl (Vitamin B-1), 50 MG PO DAILY Topiramate (Topamax), 150 MG PO BID Zinc (Zinc), 50 MG PO DAILY Zolpidem Tartrate (Zolpidem Tartrate), 10 MG PO HS [Adek], 1 TAB PO DAILY AT NOON Scheduled PRN Acetaminophen (Tylenol), 1,000 MG PO Q6H PRN for Pain Albuterol Sulfate (Proventil Hfa), 2 PUFFS INH Q4H PRN for SOB/Wheezing Lorazepam (Ativan), 1 MG PO TID PRN for Anxiety/Agitation Ondansetron (Ondansetron Odt), 4 MG PO Q8 PRN for Nausea Polyethylene Glycol 3350 (Miralax), 17 GM PO DAILY PRN for Constipation Rizatriptan Benzoate (Maxalt), 10 MG PO UD PRN for Migraine Triamcinolone Acet (Aristocort 0.1%), 1 APPLN TOP BID PRN for Itching Valacyclovir (Valtrex), 500 MG PO BID PRN for Outbreaks Allergies Coded Allergies: Morphine (Verified Allergy, Severe, TONGUE SWELLING, difficulty breathing/ wheezing, 10/27/17) tolerates hydromorphone Colestipol (Verified Allergy, Intermediate, red rash (no itching), 10/27/17) Cat Dander (Verified Allergy, Unknown, ITCHY WATERY EYES , 10/27/17) NUTS (Verified Allergy, Unknown, skin test showed nut allergy, 10/27/17) per pt, eats peanuts without issue Scopolamine (Verified Adverse Reaction, Severe, Seizure, 10/27/17) SEIZURES ONLY WHEN COMBINED W/ WELLBUTRIN. Promethazine (Verified Adverse Reaction, Intermediate, "CAN'T SIT STILL", 10/27/17) Bupropion (Verified Adverse Reaction, Unknown, Seizure, 10/27/17) SEIZURES WHEN WELLBUTRIN IS COMBINED W/ SCOPALAMINE. Physical Exam Vital Signs Date Time Temp Pulse Resp B/P (MAP) Pulse Ox O2 Delivery O2 Flow Rate FiO2 10/28/17 11:29 36.8 61 14 171/102 10/28/17 09:38 58 18 137/85 96 Room Air 10/28/17 04:53 52 18 122/75 98 Room Air 10/27/17 18:05 74 144/94 98 Room Air 10/27/17 14:44 65 14 140/93 99 Room Air 10/27/17 13:39 36.7 63 16 170/104 98 Room Air Physical Exam GENERAL: Patient is awake, alert, depressed appearing and non-anxious. EYES: The conjunctivae are clear. The pupils are round and reactive. EARS, NOSE, MOUTH AND THROAT: The nose is without any evidence of any deformity. Mucous membranes are moist tongue is midline NECK: The neck is nontender and supple. RESPIRATORY: Normal respiratory effort is noted there is no evidence of wheezing rhonchi or rales CARDIOVASCULAR: Regular rate and rhythm noted there no murmurs rubs or gallops normal S1 normal S2 GASTROINTESTINAL: The abdomen is soft. Bowel sounds are present in all quadrants. Abdomen is nontender MUSCULOSKELETAL/EXTREMITIES: There is no evidence of gross deformity full range of motion is noted in the hips and shoulders SKIN: There is no obvious evidence of any rash. There are no petechiae, pallor or cyanosis noted. There was a port noted to the left chest wall without erythema, swelling, or tenderness appreciated. NEUROLOGIC: Patient is awake alert and oriented x3 strength is symmetric patellar reflexes are 2+ bilaterally PSYCH: Affect was flat. Makes poor eye contact. Currently denying any active suicidal ideations. Medical Decision & Procedures Laboratory Results 10/27/17 14:36 Red Blood Count 3.78, Mean Corpuscular Volume 95.2, Mean Corpuscular Hemoglobin 31.7, Mean Corpuscular Hemoglobin Concent 33.3, Mean Platelet Volume 10.2, Neutrophils (%) (Auto) 69.9, Lymphocytes (%) (Auto) 24.8, Monocytes (%) (Auto) 4.5, Eosinophils (%) (Auto) 0.4, Basophils (%) (Auto) 0.2, Neutrophils # (Auto) 3.29, Lymphocytes # (Auto) 1.17, Monocytes # (Auto) 0.21, Eosinophils # (Auto) 0.02, Basophils # (Auto) 0.01 10/27/17 14:36 Test 10/27/17 13:30 10/27/17 14:36 10/28/17 01:42 Urine Color YELLOW Urine Appearance CLEAR (CLEAR) Urine pH 5.5 (4.5-7.5) Urine Specific Gilbert 1.019 (1.000-1.030) Urine Protein NEG (NEG) Urine Glucose (UA) NEG (NEG) Urine Ketones NEG (NEG) Urine Occult Blood NEG (NEG) Urine Nitrite NEG (NEG) Urine Bilirubin NEG (NEG) Urine Urobilinogen NEG (NEG) Urine Leukocyte Esterase NEG (NEG) Urine Test NEG (NEG) Urine Opiates Screen NEG (NEG) Urine Methadone, Qualitative NEG (NEG) Urine Barbiturates NEG (NEG) Urine Phencyclidine (PCP) Level NEG (NEG) Ur Amphetamine/Methamphetamine NEG (NEG) MDMA (Ecstasy) Screen NEG (NEG) Urine Benzodiazepines Screen NEG (NEG) Urine Cocaine Metabolite NEG (NEG) Urine Marijuana (THC) NEG (NEG) White Blood Count 4.71 K/uL (4.8-10.8) Red Blood Count 3.78 M/uL (4.2-5.4) Hemoglobin 12.0 g/dL (12.0-16.0) Hematocrit 36.0 % (37-47) Mean Corpuscular Volume 95.2 fL (80-100) Mean Corpuscular Hemoglobin 31.7 pg (25-34) Mean Corpuscular Hemoglobin Concent 33.3 g/dl (32-36) Platelet Count 176 K/uL (130-400) Mean Platelet Volume 10.2 fL (7.4-10.4) Neutrophils (%) (Auto) 69.9 % Lymphocytes (%) (Auto) 24.8 % Monocytes (%) (Auto) 4.5 % Eosinophils (%) (Auto) 0.4 % Basophils (%) (Auto) 0.2 % Neutrophils # (Auto) 3.29 K/uL (1.4-6.5) Lymphocytes # (Auto) 1.17 K/uL (1.2-3.4) Monocytes # (Auto) 0.21 K/uL (0.11-0.59) Eosinophils # (Auto) 0.02 K/uL (0-0.5) Basophils # (Auto) 0.01 K/uL (0-0.2) RDW Standard Deviation 51.2 fL (36.4-46.3) RDW Coefficient of Variation 14.7 % (11.5-14.5) Immature Granulocyte % (Auto) 0.2 % Immature Granulocyte # (Auto) 0.01 K/uL (0.00-0.02) Anion Gap 6.0 mmol/L (3-11) Est Creatinine Clear Calc Drug Dose 99.4 ml/min Estimated GFR () 111.4 Estimated GFR (Non- 96.1 BUN/Creatinine Ratio 12.3 (10-20) Calcium Level 8.1 mg/dl (8.5-10.1) Total Bilirubin 0.3 mg/dl (0.2-1) Direct Bilirubin < 0.1 mg/dl (0-0.2) Aspartate Amino Transf (AST/SGOT) 27 U/L (15-37) Alanine Aminotransferase (ALT/SGPT) 30 U/L (12-78) Alkaline Phosphatase 112 U/L (45-117) Total Protein 6.3 gm/dl (6.4-8.2) Albumin 3.1 gm/dl (3.4-5.0) Thyroid Stimulating Hormone (TSH) 1.380 uIu/ml (0.300-4.500) Ethyl Alcohol mg/dL < 3.0 mg/dl (0-3) Laboratory results per my review. Medications Administered Medications (Trade) Dose Ordered Sig/Rigo Route Start Time Stop Time Status Last Admin Dose Admin Acetaminophen (Tylenol Tab) 1,000 mg NOW STAT PO 10/27/17 20:34 10/27/17 20:36 DC 10/27/17 20:41 1,000 MG Levetiracetam (Keppra Tab) 1,000 mg NOW STAT PO 10/28/17 00:49 10/28/17 01:08 DC 10/28/17 01:24 1,000 MG Levetiracetam (Keppra Tab) 1,000 mg BID PO 10/28/17 09:00 10/28/17 13:55 DC 10/28/17 09:00 1,000 MG Thiamine HCl (Vitamin B-1 Tab) 50 mg QAM PO 10/28/17 09:00 10/28/17 13:56 DC 10/28/17 09:00 50 MG Aripiprazole (Abilify Tab) 20 mg QAM PO 10/28/17 09:00 10/28/17 13:56 DC 10/28/17 09:00 20 MG Cholecalciferol (Vitamin D Tab) 2,000 inter.unit QAM PO 10/28/17 09:00 10/28/17 13:56 DC 10/28/17 09:00 2,000 INTER.UNIT Sertraline HCl (Zoloft Tab) 100 mg QAM PO 10/28/17 09:00 10/28/17 13:56 DC 10/28/17 09:00 100 MG Lisinopril (Zestril Tab) 10 mg QAM PO 10/28/17 09:00 10/28/17 13:57 DC 10/28/17 09:00 10 MG Potassium Chloride (Klor-Con Tab) 20 meq DAILY PO 10/28/17 09:00 10/28/17 13:57 DC 10/28/17 09:00 20 MEQ Albuterol (Ventolin Hfa Inhaler) 2 puffs NOW ONCE INH 10/28/17 01:00 10/28/17 01:09 DC 10/28/17 01:29 2 PUFFS Zolpidem Tartrate (Ambien Tab) 10 mg NOW STAT PO 10/28/17 00:49 10/28/17 01:09 DC 10/28/17 01:24 10 MG Mirtazapine (Remeron Tab) 15 mg NOW ONCE PO 10/28/17 01:00 10/28/17 01:09 DC 10/28/17 01:30 15 MG Fluticasone Propionate (Flovent Hfa 110MCG Inhaler) 2 puffs NOW STAT INH 10/28/17 00:49 10/28/17 01:09 DC 10/28/17 01:23 2 PUFFS Topiramate (Topamax Tab) 150 mg BID PO 10/28/17 09:00 10/28/17 13:57 DC 10/28/17 09:00 150 MG Gabapentin (Neurontin Cap) 300 mg TID PO 10/28/17 09:00 10/28/17 13:58 DC 10/28/17 09:00 300 MG Lorazepam (Ativan Tab) 1 mg NOW STAT PO 10/28/17 00:49 10/28/17 01:09 DC 10/28/17 01:29 1 MG Lorazepam (Ativan Tab) 1 mg TID PO 10/28/17 09:00 10/28/17 13:58 DC 10/28/17 09:00 1 MG ED Course 1341: The patient was evaluated in room A6. A complete history and physical examination were performed. 2044: The patient was signed out to Dr. Berry at change of shift. Medical Decision Differential diagnosis: Etiologies such as mood disorder, infection, hypoglycemia, electrolyte abnormalities, cardiac sources, intracerebral event, toxicologic, neurologic, as well as others were entertained. Nursing notes reviewed. The patient is a 42-year-old female who presents to the emergency department for a mental health evaluation. The patient's been seen in our facility previously for similar complaints. The patient was medically cleared in the emergency department. She was evaluated by the mental health continuous pillowcase cutter. She was felt to be a good candidate for voluntary admission and the patient was agreeable to this. The patient is having a bed search underway at this time. She was signed out to Dr. Berry change of shift. Please see his note for continuation of care. Medication Reconcilliation Current Medication List: was personally reviewed by me Blood Pressure Screening Patient's blood pressure: Elevated blood pressure Blood pressure disposition: Elevated BP felt to be situational Impression Primary Impression: Depression Additional Impressions: Suicidal ideation Noncompliance with medication regimen Scribe Attestation The scribe's documentation has been prepared under my direction and personally reviewed by me in its entirety. I confirm that the note above accurately reflects all work, treatment, procedures, and medical decision making performed by me. Departure Information Dispostion Still a Patient (signed out to Dr. Berry) Referrals Marivel Harrell MD (PCP) Patient Instructions My [facility] Problem Qualifiers Primary Impression: Depression Depression Type: unspecified Qualified Codes: F32.9 - Major depressive disorder, single episode, unspecified
[2017-10-27 15:03] LABS: BASO % 0.2 %; BASO ABS # 0.01 K/uL (0-0.2); EOS % 0.4 %; EOS ABS # 0.02 K/uL (0-0.5); IG# 0.01 K/uL (0.00-0.02); LYMPH % 24.8 %; LYMPH ABS # 1.17 K/uL (1.2-3.4); MEAN CELL VOLUME 95.2 fL (80-100); MEAN CORPUSCULAR HEMOGLOBIN 31.7 pg (25-34); MEAN CORPUSCULAR HGB CONC 33.3 g/dl (32-36); MEAN PLATELET VOLUME 10.2 fL (7.4-10.4); MONO % 4.5 %; MONO ABS # 0.21 K/uL (0.11-0.59); NEUT % 69.9 %; NEUT ABS # 3.29 K/uL (1.4-6.5); PLATELET COUNT 176 K/uL (130-400); RED CELL DISTRIBUTION WIDTH CV 14.7 % (11.5-14.5); RED CELL DISTRIBUTION WIDTH SD 51.2 fL (36.4-46.3); WHITE BLOOD COUNT 4.71 K/uL (4.8-10.8)
[2017-10-27 15:21] LABS: ALBUMIN 3.1 gm/dl (3.4-5.0); ALT/SGPT 30 U/L (12-78); AST/SGOT 27 U/L (15-37); BLOOD UREA NITROGEN 9 mg/dl (7-18); CALCIUM 8.1 mg/dl (8.5-10.1); CARBON DIOXIDE 21 mmol/L (21-32); CREATININE 0.76 mg/dl (0.60-1.20); GLUCOSE 122 mg/dl (70-99); SODIUM 142 mmol/L (136-145)
[2017-10-27 15:31] LABS: ALKALINE PHOSPHATASE 112 U/L (45-117); TOTAL PROTEIN 6.3 gm/dl (6.4-8.2)
[2017-10-27] MEDS ORDERED: ACETAMINOPHEN 500 MG TAB PO STA (20:34)
[2017-10-28] MEDS ORDERED: LEVETIRACETAM 500 MG TAB PO STA (00:49)
[2017-10-28] MEDS ORDERED: ZOLPIDEM TARTRATE 10 MG TAB PO STA (00:49)
[2017-10-28] MEDS ORDERED: FLUTICASONE HFA 110MCG INHALER INH STA (00:49)
[2017-10-28] MEDS ORDERED: LORAZEPAM 1 MG TAB PO STA (00:49)
[2017-10-28] MEDS ORDERED: ZOLPIDEM TARTRATE 10 MG TAB PO PRN (01:00)
[2017-10-28] MEDS ORDERED: RIZATRIPTAN BENZOATE 10 MG TAB PO PRN ×2 (01:00→13:30)
[2017-10-28] MEDS ORDERED: MIRTAZAPINE TAB 15 MG TAB PO ONE (01:00)
[2017-10-28] MEDS ORDERED: ACETAMINOPHEN 500 MG TAB PO PRN ×2 (01:00→13:30)
[2017-10-28] MEDS ORDERED: ALBUTEROL HFA 8 GM INHALER INH ONE (01:00)
[2017-10-28] MEDS ORDERED: ONDANSETRON 4MG OD TAB PO PRN (01:00)
[2017-10-28] MEDS ORDERED: POLYETHYLENE (MIRALAX) 17 GM PACK PO PRN ×2 (01:00→13:30)
--- NOTE | 2017-10-28 01:09 | EMERGENCY ROOM VISIT NOTE ---
ED Visit Note First contact with patient: 00:46 Received patient in signout. History and physical verified by me. Bed search has been suspended for the night. Patient was given her evening medications. Patient will be sent out to Dr. Jaz Pickett change of shift. Problem List Medical Problems: (1) a-port placement Status: Chronic (2) Agoraphobia Status: Chronic (3) Asthma Status: Chronic (4) Bipolar I disorder Status: Chronic (5) Chronic anemia Status: Chronic (6) H/O drug abuse Permanent Comment: heroin, alcohol Status: Chronic (7) History of esophageal dilatation Permanent Comment: 2009 Status: Chronic (8) Polycystic kidney disease, adult type Status: Chronic (9) Postgastric surgery syndrome Status: Chronic (10) PTSD Status: Chronic (11) Tubal ligation evaluation Status: Chronic Surgical Problems: (1) excessive skin removal Status: Chronic (2) gastric revision procedure with gastric bypass Permanent Comment: 2008 Status: Chronic (3) H/O colonoscopy Status: Chronic (4) H/O esophagogastroduodenoscopy Status: Chronic (5) H/O exploratory laparotomy Permanent Comment: 2009, 2010, 2012 Status: Chronic (6) H/O gastric bypass Status: Chronic (7) H/O ventral hernia repair Status: Chronic (8) H/O wisdom tooth extraction Status: Chronic (9) lysis of adhesions Status: Chronic (10) S/P cholecystectomy Status: Chronic (11) S/P endometrial ablation Status: Chronic (12) S/P panniculectomy Permanent Comment: 2010 Status: Chronic (13) S/P partial gastrectomy Status: Chronic (14) wedge biopsy liver Permanent Comment: 2012 Status: Chronic Social History Problems: (1) Gastroesophageal reflux disease Status: Chronic (2) Hyperlipidemia Status: Chronic Current/Historical Medications Scheduled Aripiprazole (Abilify), 20 MG PO DAILY Cholecalciferol (Vitamin D3), 1 TAB PO DAILY Copper Gluconate (Copper), 3 MG PO DAILY Cyanocobalamin (Cyanocobalamin), 1,000 MCG IM Q3 MONTHS Ergocalciferol (Vitamin D 93726 Unit), 1 CAP PO WK Fluticasone Propionate (Flovent Hfa), 2 PUFFS INH BID Fosaprepitant Dimeglumine (Emend), 75 MG IV WK Gabapentin (Neurontin), 300 MG PO TID Iron Sucrose (Venofer), 200 MG IV DIRECTED Levetiracetam (Keppra), 1,000 MG PO BID Lisinopril (Zestril), 10 MG PO DAILY Lorazepam (Ativan), 1 MG PO TID Mirtazapine (Remeron), 15 MG PO HS Pediatric Multiple Vitamin W/ (Flintstones Gummies), 1 TAB PO BID Potassium Chloride Microencaps (Potassium Chloride Er), 20 MEQ PO DAILY Sertraline Hcl (Zoloft), 100 MG PO DAILY Thiamine Hcl (Vitamin B-1), 50 MG PO DAILY Topiramate (Topamax), 150 MG PO BID Zinc (Zinc), 50 MG PO DAILY Zolpidem Tartrate (Zolpidem Tartrate), 10 MG PO HS [Adek], 1 TAB PO DAILY AT NOON Scheduled PRN Acetaminophen (Tylenol), 1,000 MG PO Q6H PRN for Pain Albuterol Sulfate (Proventil Hfa), 2 PUFFS INH Q4H PRN for SOB/Wheezing Ondansetron (Ondansetron Odt), 8 MG PO Q8 PRN for Nausea Polyethylene Glycol 3350 (Miralax), 17 GM PO DAILY PRN for Constipation Rizatriptan Benzoate (Maxalt), 10 MG PO UD PRN for Migraine Triamcinolone Acet (Aristocort 0.1%), 1 APPLN TOP BID PRN for Itching Valacyclovir (Valtrex), 500 MG PO BID PRN for Outbreaks Allergies Coded Allergies: Morphine (Verified Allergy, Severe, TONGUE SWELLING, difficulty breathing/ wheezing, 10/27/17) tolerates hydromorphone Colestipol (Verified Allergy, Intermediate, red rash (no itching), 10/27/17) Cat Dander (Verified Allergy, Unknown, ITCHY WATERY EYES , 10/27/17) NUTS (Verified Allergy, Unknown, skin test showed nut allergy, 10/27/17) per pt, eats peanuts without issue Scopolamine (Verified Adverse Reaction, Severe, Seizure, 10/27/17) SEIZURES ONLY WHEN COMBINED W/ WELLBUTRIN. Promethazine (Verified Adverse Reaction, Intermediate, "CAN'T SIT STILL", 10/27/17) Bupropion (Verified Adverse Reaction, Unknown, Seizure, 10/27/17) SEIZURES WHEN WELLBUTRIN IS COMBINED W/ SCOPALAMINE. Vital Signs Date Time Temp Pulse Resp B/P (MAP) Pulse Ox O2 Delivery O2 Flow Rate FiO2 10/27/17 18:05 74 144/94 98 Room Air 10/27/17 14:44 65 14 140/93 99 Room Air 10/27/17 13:39 36.7 63 16 170/104 98 Room Air Laboratory Results 10/27/17 14:36 Red Blood Count 3.78, Mean Corpuscular Volume 95.2, Mean Corpuscular Hemoglobin 31.7, Mean Corpuscular Hemoglobin Concent 33.3, Mean Platelet Volume 10.2, Neutrophils (%) (Auto) 69.9, Lymphocytes (%) (Auto) 24.8, Monocytes (%) (Auto) 4.5, Eosinophils (%) (Auto) 0.4, Basophils (%) (Auto) 0.2, Neutrophils # (Auto) 3.29, Lymphocytes # (Auto) 1.17, Monocytes # (Auto) 0.21, Eosinophils # (Auto) 0.02, Basophils # (Auto) 0.01 10/27/17 14:36 Test 10/27/17 13:30 10/27/17 14:36 Urine Color YELLOW Urine Appearance CLEAR (CLEAR) Urine pH 5.5 (4.5-7.5) Urine Specific Ladd 1.019 (1.000-1.030) Urine Protein NEG (NEG) Urine Glucose (UA) NEG (NEG) Urine Ketones NEG (NEG) Urine Occult Blood NEG (NEG) Urine Nitrite NEG (NEG) Urine Bilirubin NEG (NEG) Urine Urobilinogen NEG (NEG) Urine Leukocyte Esterase NEG (NEG) Urine Test NEG (NEG) Urine Opiates Screen NEG (NEG) Urine Methadone, Qualitative NEG (NEG) Urine Barbiturates NEG (NEG) Urine Phencyclidine (PCP) Level NEG (NEG) Ur Amphetamine/Methamphetamine NEG (NEG) MDMA (Ecstasy) Screen NEG (NEG) Urine Benzodiazepines Screen NEG (NEG) Urine Cocaine Metabolite NEG (NEG) Urine Marijuana (THC) NEG (NEG) White Blood Count 4.71 K/uL (4.8-10.8) Red Blood Count 3.78 M/uL (4.2-5.4) Hemoglobin 12.0 g/dL (12.0-16.0) Hematocrit 36.0 % (37-47) Mean Corpuscular Volume 95.2 fL (80-100) Mean Corpuscular Hemoglobin 31.7 pg (25-34) Mean Corpuscular Hemoglobin Concent 33.3 g/dl (32-36) Platelet Count 176 K/uL (130-400) Mean Platelet Volume 10.2 fL (7.4-10.4) Neutrophils (%) (Auto) 69.9 % Lymphocytes (%) (Auto) 24.8 % Monocytes (%) (Auto) 4.5 % Eosinophils (%) (Auto) 0.4 % Basophils (%) (Auto) 0.2 % Neutrophils # (Auto) 3.29 K/uL (1.4-6.5) Lymphocytes # (Auto) 1.17 K/uL (1.2-3.4) Monocytes # (Auto) 0.21 K/uL (0.11-0.59) Eosinophils # (Auto) 0.02 K/uL (0-0.5) Basophils # (Auto) 0.01 K/uL (0-0.2) RDW Standard Deviation 51.2 fL (36.4-46.3) RDW Coefficient of Variation 14.7 % (11.5-14.5) Immature Granulocyte % (Auto) 0.2 % Immature Granulocyte # (Auto) 0.01 K/uL (0.00-0.02) Anion Gap 6.0 mmol/L (3-11) Est Creatinine Clear Calc Drug Dose 99.4 ml/min Estimated GFR () 111.4 Estimated GFR (Non- 96.1 BUN/Creatinine Ratio 12.3 (10-20) Calcium Level 8.1 mg/dl (8.5-10.1) Total Bilirubin 0.3 mg/dl (0.2-1) Direct Bilirubin < 0.1 mg/dl (0-0.2) Aspartate Amino Transf (AST/SGOT) 27 U/L (15-37) Alanine Aminotransferase (ALT/SGPT) 30 U/L (12-78) Alkaline Phosphatase 112 U/L (45-117) Total Protein 6.3 gm/dl (6.4-8.2) Albumin 3.1 gm/dl (3.4-5.0) Thyroid Stimulating Hormone (TSH) 1.380 uIu/ml (0.300-4.500) Ethyl Alcohol mg/dL < 3.0 mg/dl (0-3) Medications Administered Medications (Trade) Dose Ordered Sig/Rigo Route Start Time Stop Time Status Last Admin Dose Admin Acetaminophen (Tylenol Tab) 1,000 mg NOW STAT PO 10/27/17 20:34 10/27/17 20:36 DC 10/27/17 20:41 1,000 MG Departure Information Impression Primary Impression: Depression Additional Impressions: Suicidal ideation Noncompliance with medication regimen Dispostion Still a Patient Referrals Marivel Harrell MD (PCP) Patient Instructions My [facility] Problem Qualifiers
--- NOTE | 2017-10-28 05:50 | EMERGENCY ROOM VISIT NOTE ---
ED Visit Note First contact with patient: 02:31 I received this patient at the change of shift from Dr. Isaac Berry pending a mental health bed search. The bed search was suspended overnight. The patient has been doing well. She will be signed out to Dr. Overton at the change of shift. Please see his notes for final disposition.
--- NOTE | 2017-10-28 07:29 | EMERGENCY ROOM VISIT NOTE ---
ED Visit Note First contact with patient: 07:25 The patient was taken in sign out from Dr. Jaz Pickett at the change of shift. Please see that note for details. The patient was pending psychiatric evaluation. The patient was accepted to [address] [place] [address]. She was admitted for further treatment. Prior to admission she was without complaints.
[2017-10-28] MEDS ORDERED: TOPIRAMATE 100 MG TAB PO SCH (09:00)
[2017-10-28] MEDS ORDERED: LORAZEPAM 1 MG TAB PO SCH (09:00)
[2017-10-28] MEDS ORDERED: GABAPENTIN 300 MG CAP PO SCH (09:00)
[2017-10-28] MEDS ORDERED: THIAMINE HCL 50 MG TAB PO SCH (09:00)
[2017-10-28] MEDS ORDERED: POTASSIUM CHLORIDE 20 MEQ TABCR PO SCH (09:00)
[2017-10-28] MEDS ORDERED: ARIPIprazole TAB 5 MG TAB PO SCH (09:00)
[2017-10-28] MEDS ORDERED: SERTRALINE HCL 100 MG TAB PO SCH (09:00)
[2017-10-28] MEDS ORDERED: LISINOPRIL 10 MG TAB PO SCH (09:00)
[2017-10-28] MEDS ORDERED: CHOLECALCIFEROL 1000 INTER.UNIT TAB PO SCH (09:00)
[2017-10-28] MEDS ORDERED: LEVETIRACETAM 500 MG TAB PO SCH (09:00)
[2017-10-28 11:29] VITALS: BP 171/102; PULSE 61; TEMP 36.8; Ht 157.5 cm; Wt 95.0 kg
[2017-10-28] MEDS ORDERED: SODIUM CHLORIDE 0.65% NA SOLN 45 ML (OCEAN) PRN (13:30)
[2017-10-28] MEDS ORDERED: ALUMINUM/MAGNESIUM SUSP 30 ML UDC PO PRN (13:30)
[2017-10-28] MEDS ORDERED: TRIAMCINOLONE ACET 0.1% CR 15 GM TUBE EXT PRN (13:30)
[2017-10-28] MEDS ORDERED: hydrOXYzine HCL 25 MG TAB PO PRN ×2 (13:30)
[2017-10-28] MEDS ORDERED: ALBUTEROL HFA 8 GM INHALER INH PRN (13:30)
[2017-10-28] MEDS ORDERED: BISMUTH SUBSALICYLATE PER ML OMNICELL CHARGE PO PRN (13:30)
[2017-10-28] MEDS ORDERED: MAGNESIUM HYDROXIDE SUSP 30 ML UDC PO PRN (13:30)
[2017-10-28] MEDS ORDERED: ONDANSETRON 8MG OD TAB PO PRN (13:30)
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
[2017-10-28] MEDS: GABAPENTIN 300 MG CAP PO SCH ×2 (16:01→22:23)
[2017-10-28] MEDS: LORAZEPAM 0.5 MG TAB PO SCH ×2 (16:01→22:21)
[2017-10-28] MEDS ORDERED: NURSING VERBAL MED ORDER ONE (16:45)
[2017-10-28 17:24] VITALS: BP 137/89; PULSE 58
[2017-10-28] MEDS ORDERED: MIRTAZAPINE TAB 15 MG TAB PO SCH (21:00)
[2017-10-28] MEDS ORDERED: ZOLPIDEM TARTRATE 10 MG TAB PO SCH (22:00)
[2017-10-28] MEDS: LEVETIRACETAM 500 MG TAB PO SCH (22:23)
[2017-10-28] MEDS: MIRTAZAPINE TAB 15 MG TAB PO SCH (22:24)
[2017-10-28] MEDS: FLUTICASONE HFA 110MCG INHALER INH SCH (22:26)
[2017-10-28] MEDS: TOPIRAMATE 50 MG TAB PO SCH (22:45)
[2017-10-29 06:39] VITALS: BP_SYST 123; BP_SYST 130; BP_DIAS 84; BP_DIAS 85; PULSE 57; PULSE 72; TEMP 36.5
[2017-10-29 08:51] LABS: POTASSIUM 3.3 mmol/L (3.5-5.1)
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
[2017-10-29] MEDS ORDERED: ARIPIprazole TAB 10 MG TAB PO SCH (09:00)
[2017-10-29] MEDS ORDERED: CHOLECALCIFEROL 1000 INTER.UNIT TAB PO SCH (09:00)
[2017-10-29] MEDS ORDERED: SERTRALINE HCL 50 MG TAB PO SCH (09:00)
[2017-10-29] MEDS ORDERED: SERTRALINE HCL 100 MG TAB PO SCH (09:00)
[2017-10-29] MEDS: FLUTICASONE HFA 110MCG INHALER INH SCH ×2 (09:14→21:50)
[2017-10-29] MEDS: LEVETIRACETAM 500 MG TAB PO SCH ×2 (09:20→21:52)
[2017-10-29] MEDS: GABAPENTIN 300 MG CAP PO SCH ×3 (09:20→21:52)
[2017-10-29] MEDS: LISINOPRIL 10 MG TAB PO SCH (09:20)
[2017-10-29] MEDS: LORAZEPAM 0.5 MG TAB PO SCH ×3 (09:20→21:51)
[2017-10-29] MEDS: THIAMINE HCL 50 MG TAB PO SCH (09:20)
[2017-10-29] MEDS: TOPIRAMATE 50 MG TAB PO SCH ×2 (09:21→21:53)
[2017-10-29] MEDS: CHOLECALCIFEROL 1000 INTER.UNIT TAB PO SCH (09:21)
[2017-10-29] MEDS: POTASSIUM CHLORIDE 20 MEQ TABCR PO SCH (09:21)
--- NOTE | 2017-10-29 11:28 | Psychiatric Progress Notes ---
Progress Note Date of Service Oct 29, 2017. Interval History Jamaica Harris is a 42 year old white female who currently lives in [place], [place] with a past psychiatric history of bipolar disorder type I, substance abuse history and borderline personality disorder traits who was admitted 201 voluntary commitment on 10/28/17 after being brought in to the emergency department following a CANHELP crisis consult in which she voiced recent suicidal thoughts and abusing heroine and Ativan in the context of ongoing psychosocial stressors. Chief Complaint "I just don't know, I throw up all the time, I need this port out". Subjective Patient was seen & assessed interval progress reviewed with Nursing. Potassium is chronically low, rebounded today following supplementation in the ED. Extensive efforts to clarify med rec. Patient is a very poor historian re: her medications and [facility] psych clinic closed for weekend. Patient frequently misses doses due to emesis, has to have BM in middle of night which disrupts sleep. She'd prefer Zofran prior to meals. States regular diet appropriate, adjusts portions. Very focussed on appt she is missing tomorrow with GI specialist to discuss port removal. [place] Denies having a stash at home. Review of Systems Psych: denies symptoms other than stated above Constitutional: tired Cardiovascular: denied GI: as above Neurologic: had SHEPARD this am, Maxalt effective Remainder of 10 body systems also reviewed and denied other than noted above. Sleep Information Total Hours of Sleep: 5.00 Meal Information Percent of Breakfast Consumed: 80 Percent of Lunch Consumed: 100 Percent of Dinner Consumed: 50 Mental Status Exam During interview pt is: alert and oriented, cooperative Appearance: appropriately dressed, appropriately groomed Motor behavior is: steady gait & station Speech: normal in rate, rhythm & volume Affect: depressed Mood is: depressed Thought process: clear, coherent Thought content: reality based without delusions Suicidal thought are: present, Plan: denied, Intent: denied Homicidal thoughts are: denied Hallucinations: denies auditory, denies visual Cognition: memory grossly intact, attention grossly intact, language grossly intact Intelligence estimated to be: consistent with level of education Insight: limited Judgement: limited Impression The patient is a 42 year old white female with hx of Bipolar I Disorder, Poly Substance Abuse, Anxiety, PTSD as well as ongoing multiple medical health concerns that affect her ADL's and quality of life and who was admitted for psychiatric evaluation and treatment of suicidal thoughts especially with a history of multiple OD suicide attempts in addition to the current abuse of prescription benzodiazepines and the use of Heroin. The patient is also with multiple psychosocial stressors but primarily a large source of her stress is an ongoing custody siddiqui for her daughter. Plan (1) Bipolar I disorder 10/28--The patient is admitted to [facility] ([facility] mental health unit) on q 15 min checks (behavioral with suicide precautions) for safety. The patient will participate in group, recreational and milieu therapies and will be offered additional individual and family sessions as clinically appropriate. Recommend family meeting with her Boyfriend Patient is presenting as depressed. Denies mood swings, connor or hypomania. Continue Ariprazole 20 mg po q day, Sertraline 100mg q day Remeron and Ambien for sleep. 10/29--will split dose Abilify starting tomorrow. Patient expressed interested in injectable med, reviewed that insurance may consider regardless of dx given her GI issues but cannot determine today. Hospital doesn't carry Remeron jaime tab but may also be better absorbed as outpatient. Reviewed plan to taper Ambien in preparation for d/c. . (2) Benzodiazepine abuse 10/28 received 2 mg total of Ativan yesterday. 10/29 Ativan 0.5 mg TID today with plan for further taper as tolerated. BP is better this am than yesterday pm. PDMP database query confirmed that filling 90 tabs of Ativan montly for past 6 months. Last fill of #90 pills on 10/23 ( NEED TO CONFIRM location of supply). Reviewed risks of respiratory depression with opiates can result in . (3) H/O drug abuse 10/28 Avoid opiates, benzodiazepines given history of abuse. Concern does arise for use of Ambien for sleep. 10/29 Active heroin abuse for several months Brief intervention was offered and accepted. Intervention (if performed) was greater than 5 min in length. Brief interventions include: 1. Assess Readiness to Quit, 2. Advise: Help Patient to Reduce or Abstain from heroin 3. Agree: Set Specific, Feasible Goals , 4. Assist: Anticipate barriers, Problem-Solving Solutions. Social work to 5. Arrange: Referrals to appropriate treatment. Summary of intervention: The patient is in contemplation stage with regards to transtheoretical model of change. She wants port removed but doesn't want D&A counseling or rehab. She lives in an area with ready access to heroin. The patient will be provided with recovery materials to continue to education self on how to cope with their condition without drug and benzo use. (4) Post Gastric Bypass Syndrome 10/28 With chronic nausea, post prandial vomiting, electrolyte disturbances.Recommend continuation for the following: repeat K in am 10/29 K improving, continue supplementation. Patient is requesting Zofran prior to meals, will attempt few doses today pending GI consult, mainly as would recommend port removal, ideally prior to leaving hospital. Would be scheduled for infusions 11/01 if remains hospitalized. (5) Asthma Continue Proventil MDI 2 puffs q 4 hrs prn sob/wheeze and Flovent 2 puff BID SOB/wheeze (6) Hypertension Continue Lisinopril 10 mg daily (7) Headache Continue Topamax, Maxalt and Tylenol prn migraine. Continue Gabapentin as it helps with neuropathy due to Topamax side effect, (8) Seizure disorder 10/28 Continue Keppra, last episode "few weeks" ago, seizure precautions (9) MRSA Nasal swab today. She will need an additional swab in one week per protocol. Discharge / Aftercare Planning Primary Care Physician: Name: Dior Harrell Psychiatrist: Name: Dr. Lee [facility] Therapist: Name: Ann arango Donor Relations Officer: Name: Kervin Bloom - JAR[employer] Motivational: Name: Antonia Visit Code E&M Code: 78728 Inventory Assets Strengths: daughter, boyfriend Needs: custody siddiqui, health concerns, Risk Factors Assessment : Yes /single/: Yes Health problems: Yes Mental Health Diagnoses: Yes Substance use disorders: Yes Previous attempt: Yes Family history of suicide: Yes Previous psychiatric stay: Yes Hopelessness: Yes Smoker: No Protective Factors Assessment Jewish beliefs: Yes : No Responsible for young children: No Employed: No Stable relationships: Yes Supportive family: No Good rapport with provider: Yes Data Vital Signs Last 24 Hrs: Date Time Temp Pulse Resp B/P (MAP) Pulse Ox O2 Delivery O2 Flow Rate FiO2 10/29/17 06:39 36.5 57 20 130/84 72 123/85 10/28/17 17:24 58 137/89 10/28/17 12:41 72 171/93 97 10/28/17 11:29 36.8 61 14 171/102 Meds Administered Last 24 Hrs: Meds Administered (Past 24Hrs) Medications (Trade) Dose Ordered Sig/Rigo Route Start Time Stop Time Status Last Admin Dose Admin Acetaminophen (Tylenol Tab) 1,000 mg NOW STAT PO 10/27/17 20:34 10/27/17 20:36 DC 10/27/17 20:41 1,000 MG Levetiracetam (Keppra Tab) 1,000 mg NOW STAT PO 10/28/17 00:49 10/28/17 01:08 DC 10/28/17 01:24 1,000 MG Levetiracetam (Keppra Tab) 1,000 mg BID PO 10/28/17 09:00 10/28/17 13:55 DC 10/28/17 09:00 1,000 MG Thiamine HCl (Vitamin B-1 Tab) 50 mg QAM PO 10/28/17 09:00 10/28/17 13:56 DC 10/28/17 09:00 50 MG Aripiprazole (Abilify Tab) 20 mg QAM PO 10/28/17 09:00 10/28/17 13:56 DC 10/28/17 09:00 20 MG Cholecalciferol (Vitamin D Tab) 2,000 inter.unit QAM PO 10/28/17 09:00 10/28/17 13:56 DC 10/28/17 09:00 2,000 INTER.UNIT Sertraline HCl (Zoloft Tab) 100 mg QAM PO 10/28/17 09:00 10/28/17 13:56 DC 10/28/17 09:00 100 MG Lisinopril (Zestril Tab) 10 mg QAM PO 10/28/17 09:00 10/28/17 13:57 DC 10/28/17 09:00 10 MG Potassium Chloride (Klor-Con Tab) 20 meq DAILY PO 10/28/17 09:00 10/28/17 13:57 DC 10/28/17 09:00 20 MEQ Albuterol (Ventolin Hfa Inhaler) 2 puffs NOW ONCE INH 10/28/17 01:00 10/28/17 01:09 DC 10/28/17 01:29 2 PUFFS Zolpidem Tartrate (Ambien Tab) 10 mg NOW STAT PO 10/28/17 00:49 10/28/17 01:09 DC 10/28/17 01:24 10 MG Mirtazapine (Remeron Tab) 15 mg NOW ONCE PO 10/28/17 01:00 10/28/17 01:09 DC 10/28/17 01:30 15 MG Fluticasone Propionate (Flovent Hfa 110MCG Inhaler) 2 puffs NOW STAT INH 10/28/17 00:49 10/28/17 01:09 DC 10/28/17 01:23 2 PUFFS Topiramate (Topamax Tab) 150 mg BID PO 10/28/17 09:00 10/28/17 13:57 DC 10/28/17 09:00 150 MG Gabapentin (Neurontin Cap) 300 mg TID PO 10/28/17 09:00 10/28/17 13:58 DC 10/28/17 09:00 300 MG Lorazepam (Ativan Tab) 1 mg NOW STAT PO 10/28/17 00:49 10/28/17 01:09 DC 10/28/17 01:29 1 MG Lorazepam (Ativan Tab) 1 mg TID PO 10/28/17 09:00 10/28/17 13:58 DC 10/28/17 09:00 1 MG Aripiprazole (Abilify Tab) 20 mg DAILY PO 10/29/17 09:00 11/28/17 08:59 10/29/17 09:27 20 MG Cholecalciferol (Vitamin D Tab) 1,000 inter.unit DAILY PO 10/29/17 09:00 11/28/17 08:59 10/29/17 09:21 1,000 INTER.UNIT Fluticasone Propionate (Flovent Hfa 110MCG Inhaler) 2 puffs BID INH 10/28/17 22:00 11/27/17 21:59 10/29/17 09:14 2 PUFFS Gabapentin (Neurontin Cap) 300 mg TID PO 10/28/17 14:00 11/27/17 13:59 10/29/17 09:20 300 MG Levetiracetam (Keppra Tab) 1,000 mg BID PO 10/28/17 22:00 5/7/18 21:59 10/29/17 09:20 1,000 MG Lisinopril (Zestril Tab) 10 mg DAILY PO 10/29/17 09:00 11/28/17 08:59 10/29/17 09:20 10 MG Mirtazapine (Remeron Tab) 15 mg HS PO 10/28/17 22:00 11/27/17 21:59 10/28/17 22:24 15 MG Potassium Chloride (Klor-Con Tab) 20 meq DAILY PO 10/29/17 09:00 11/28/17 08:59 10/29/17 09:21 20 MEQ Rizatriptan Benzoate (Maxalt Tab) 10 mg UD PRN PO 10/28/17 13:30 11/27/17 13:29 10/29/17 04:08 10 MG Thiamine HCl (Vitamin B-1 Tab) 50 mg DAILY PO 10/29/17 09:00 11/28/17 08:59 10/29/17 09:20 50 MG Topiramate (Topamax Tab) 150 mg BID PO 10/28/17 22:00 11/27/17 21:59 10/29/17 09:21 150 MG Zolpidem Tartrate (Ambien Tab) 10 mg HSZ PO 10/28/17 22:00 11/27/17 21:59 10/28/17 22:21 10 MG Lorazepam (Ativan Tab) 0.5 mg TID PO 10/28/17 14:00 11/27/17 13:59 10/29/17 09:20 0.5 MG Sertraline HCl (Zoloft Tab) 50 mg DAILY PO 10/29/17 09:00 10/29/17 09:01 DC 10/29/17 09:20 50 MG Lab Results Last 24 Hrs: Last 24 Hours Test 10/29/17 08:11 Potassium Level 3.3 mmol/L Fasting Glucose 78 mg/dl Triglycerides Level 69 mg/dl Cholesterol Level 169 mg/dl HDL Cholesterol 52 mg/dl LDL Cholesterol, Calculated 103 mg/dl VLDL Cholesterol, Calculated 14 mg/dl Cholesterol/HDL Ratio 3.3
[2017-10-29] MEDS ORDERED: ONDANSETRON 8MG OD TAB PO PRN (12:15)
[2017-10-29] MEDS: ZOLPIDEM TARTRATE 10 MG TAB PO SCH (21:50)
[2017-10-29] MEDS: MIRTAZAPINE TAB 15 MG TAB PO SCH (21:52)
[2017-10-29] MEDS: SERTRALINE HCL 100 MG TAB PO SCH (21:53)
[2017-10-30] MEDS: ACETAMINOPHEN 325 MG TAB PO PRN (05:29)
[2017-10-30 07:07] VITALS: BP_SYST 127; BP_SYST 131; BP_DIAS 81; BP_DIAS 85; PULSE 60; PULSE 61; TEMP 36.5
[2017-10-30] MEDS: ARIPIprazole TAB 10 MG TAB PO SCH ×2 (07:48→21:16)
[2017-10-30] MEDS: TOPIRAMATE 50 MG TAB PO SCH ×2 (07:49→21:19)
[2017-10-30] MEDS: GABAPENTIN 300 MG CAP PO SCH ×3 (07:49→21:17)
[2017-10-30] MEDS: THIAMINE HCL 50 MG TAB PO SCH (07:50)
[2017-10-30] MEDS: LEVETIRACETAM 500 MG TAB PO SCH ×2 (07:50→21:17)
[2017-10-30] MEDS: LISINOPRIL 10 MG TAB PO SCH (07:50)
[2017-10-30] MEDS: CHOLECALCIFEROL 1000 INTER.UNIT TAB PO SCH (07:50)
[2017-10-30] MEDS: POTASSIUM CHLORIDE 20 MEQ TABCR PO SCH (07:50)
[2017-10-30] MEDS: SERTRALINE HCL 100 MG TAB PO SCH ×2 (07:50→21:19)
[2017-10-30] MEDS: LORAZEPAM 0.5 MG TAB PO SCH ×3 (07:50→21:17)
[2017-10-30] MEDS: FLUTICASONE HFA 110MCG INHALER INH SCH ×2 (07:51→21:16)
--- NOTE | 2017-10-30 08:26 | Gastrointestinal Consultation ---
Gastrointestinal Consultation Date of Consultation: Oct 30, 2017 Attending Physician: Yao Consulting Physician: Michael Reason for Consultation: hx drug use via port History of Present Illness Patient is a 42 year old female w/ complex abdominal history dating back to RYGB in 2008 complicated by revision, bile leak, cholecystectomy, small bowel perforation s/p resection, panniculectomy and hernia repair, post op wound abscess requiring I&D, omental infraction in 2013, lysis of adhesions in 2014, 2016 following with GI for chronic nausea, vomiting, dysmotility. Persistent symptoms despite Senna, Amitiza, Linzess, Neurontin, Xifaxan, Scopolamine, Dicyclomine, Levsin, Cipro, enemas. Maintained on Reglan, emend infusions weekly. Pt notes constant stressors at home with fiances and custody. This has been worse of recent. Admitted to [facility] for suicidal ideation w/ numerous previous overdose attempts. Has started using heroin through port x 6 months. Today, unprompted after introducing myself, pt asked me how she could get the port removed because of the temptation it presents. She notes "I am unable to change a lot of the stressors in my life, but I can change this port." This AM pt notes she feels ok. Completed 100% of her tray. No nausea, vomiting, abdominal pain. Notes she has been having looser stools, 4-5 semi-formed stools daily. No black or bloody stools. No fever, chills, CP, SOB. Past Medical/Surgical History Medical Problems: (1) Abdominal pain Status: Acute (2) Abdominal pain Status: Acute (3) Abdominal pain Status: Acute (4) Acute gastroenteritis Status: Acute (5) Anemia Status: Acute (6) Back pain Status: Acute (7) Chest pain Status: Acute (8) Dehydration Status: Acute (9) Depression Status: Acute (10) Diarrhea Status: Acute (11) Diffuse abdominal pain Status: Acute (12) Drug abuse and dependence Status: Acute (13) Fecal impaction in rectum Status: Acute (14) Fecal retention Status: Acute (15) Flu-like symptoms Status: Acute (16) Generalized abdominal pain Status: Acute (17) Heroin abuse Status: Acute (18) Hypoglycemia Status: Acute (19) Hypokalemia Status: Acute (20) Ileus Status: Acute (21) Influenza-like symptoms Status: Acute (22) Intractable nausea and vomiting Status: Acute (23) Low back pain Status: Acute (24) Medical non-compliance Status: Acute (25) Nausea and vomiting Status: Acute (26) Nausea, vomiting, and diarrhea Status: Acute (27) Nausea, vomiting, and diarrhea Status: Acute (28) Nausea, vomiting, and diarrhea Status: Acute (29) Noncompliance with medication regimen Status: Acute (30) Palpitations Status: Acute (31) Post-operative pain Status: Acute (32) Precordial chest pain Status: Acute (33) Rash and nonspecific skin eruption Status: Acute (34) Reaction to insect bite Status: Acute (35) RLQ abdominal pain Status: Acute (36) Seizure Status: Acute (37) Seizure Status: Acute (38) SOB (shortness of breath) on exertion Status: Acute (39) Substernal chest pain Status: Acute (40) Substernal chest pain Status: Acute (41) Suicidal ideation Status: Acute (42) Swelling of lower extremity Status: Acute (43) Syncope Status: Acute (44) Syncope Status: Acute (45) Upper abdominal pain Status: Acute (46) Urinary tract infection Status: Acute (47) Vomiting and diarrhea Status: Acute Social History Problems: (1) Anemia Status: Acute (2) Anisocoria Status: Acute (3) Bowel obstruction Status: Acute (4) Constipation Status: Acute (5) Dehydration Status: Acute (6) Diarrhea Status: Acute (7) Diffuse abdominal pain Status: Acute (8) Encounter for wound re-check Status: Acute (9) Epigastric abdominal pain Status: Acute (10) Gastroesophageal reflux disease Status: Chronic (11) Hyperlipidemia Status: Chronic (12) Hypokalemia Status: Acute (13) Ileus Status: Acute (14) Left wrist pain Status: Acute (15) Nausea, vomiting and diarrhea Status: Acute (16) Partial small bowel obstruction Status: Acute (17) Syncope Status: Acute (18) Vomiting Status: Acute (19) Vomiting Status: Acute (20) Wrist pain Status: Acute Past Medical History: IBS, multiple abdominal surgeries and IRMA, anemia of chronic disease, bipolar d /o, h/o poly-substance abuse, PKD, PTSD, RYGB, constipation. ileus Past Surgical History: RYGB RYGB revision IRMA Cholecystectomy small bowel resection Family History Cancer MOTHER (lung) Diabetes mellitus FATHER FH: gallbladder disease FH: lung disease FHx: heart disease FATHER Hypertension MOTHER Stroke FATHER Social History Smoking Status: Unknown if Ever Smoked Alcohol Use: none Drug Use: none Marital Status: , in relationship Housing Status: lives with significant other Occupation Status: employed Allergies Coded Allergies: Morphine (Verified Allergy, Severe, TONGUE SWELLING, difficulty breathing/ wheezing, 10/27/17) tolerates hydromorphone Colestipol (Verified Allergy, Intermediate, red rash (no itching), 10/27/17) Cat Dander (Verified Allergy, Unknown, ITCHY WATERY EYES , 10/27/17) NUTS (Verified Allergy, Unknown, skin test showed nut allergy, 10/27/17) per pt, eats peanuts without issue Scopolamine (Verified Adverse Reaction, Severe, Seizure, 10/27/17) SEIZURES ONLY WHEN COMBINED W/ WELLBUTRIN. Promethazine (Verified Adverse Reaction, Intermediate, "CAN'T SIT STILL", 10/27/17) Bupropion (Verified Adverse Reaction, Unknown, Seizure, 10/27/17) SEIZURES WHEN WELLBUTRIN IS COMBINED W/ SCOPALAMINE. Current Medications Home Meds and Scripts Medications Dose Route/Sig Max Daily Dose Days Date Category Dose Instructions Copper (Copper Gluconate) 2 Mg Tab 3 Mg PO DAILY 10/08/17 Reported Zinc 50 Mg Tab 50 Mg PO DAILY 10/08/17 Reported [Adek] 1 Tab PO DAILY AT NOON 10/08/17 Reported MULTIVITAMIN Keppra (Levetiracetam) 1,000 Mg Tab 1,000 Mg PO BID 10/08/17 Reported Vitamin B-1 (Thiamine HCl) 50 Mg Tab 50 Mg PO DAILY 09/27/17 Reported Venofer (Iron Sucrose) 20 Mg/Ml Inj 200 Mg IV DIRECTED 08/16/17 Reported Abilify (Aripiprazole) 15 Mg Tab 20 Mg PO HS 08/16/17 Reported Vitamin D3 (Cholecalciferol) 2,000 Unit Tab 1 Tab PO DAILY 30 08/16/17 Reported Vitamin D 55410 Unit (Ergocalciferol) 50,000 Unit Cap 1 Cap PO WK 28 08/16/17 Reported TAKES ON MONDAYS Miralax (Polyethylene Glycol 3350) 1 Pow Pow 17 Gm PO DAILY PRN 08/16/17 Reported Zoloft (Sertraline Hcl) 100 Mg Tab 50 Mg PO DAILY 05/24/17 Reported Zestril (Lisinopril) 10 Mg Tab 10 Mg PO DAILY 04/12/17 Reported Cyanocobalamin 1,000 Mcg/Ml Inj 1,000 Mcg IM Q3 MONTHS 03/19/17 Reported DUE IN OCTOBER Potassium Chloride Er (Potassium Chloride Microencaps) 20 Meq Tab 20 Meq PO DAILY 03/19/17 Reported Maxalt (Rizatriptan Benzoate) 10 Mg Tab 10 Mg PO UD PRN 03/19/17 Reported May repeat every 2 hours as need, max of 3 doses in 24 hours Proventil Hfa (Albuterol Sulfate) 108 Mcg/Act Aer 2 Puffs INH Q4H PRN 03/19/17 Reported Emend (Fosaprepitant Dimeglumine) 150 Mg Evelyn 75 Mg IV WK 03/19/17 Reported AMINISTER ONCE WEEKLY ON MONDAY AT 150 ML PER HOUR Yaima Gummies (Pediatric Multiple Vitamin W/) 1 Chw Chw 1 Tab PO BID 03/19/17 Reported Zolpidem Tartrate 10 Mg Tab 10 Mg PO HS 01/17/17 Reported Remeron (Mirtazapine) 15 Mg Tab 15 Mg PO HS 12/27/16 Reported Flovent Hfa (Fluticasone Propionate) 120 Puffs/92240 Mcg Aero 2 Puffs INH BID 11/04/16 Reported Aristocort 0.1% (Triamcinolone Acet) 90 Appln/30 Gm Cr 1 Appln TOP BID PRN 11/04/16 Reported Topamax (Topiramate) 100 Mg Tab 150 Mg PO BID 08/24/16 Reported Neurontin (Gabapentin) 300 Mg Cap 300 Mg PO TID 02/23/16 Reported TAKE THIS MEDICATION DAILY WITH LUNCH AND EVENING MEALS Ativan (Lorazepam) 1 Mg Tab 1 Mg PO TID PRN 02/23/16 Reported Ondansetron Odt (Ondansetron) 8 Mg Soltab 4 Mg PO Q8 PRN 02/16/16 Reported ALLOW TABLET TO DISSOLVE ON TONGUE Tylenol (Acetaminophen) 500 Mg Tab 1,000 Mg PO Q6H PRN 04/08/15 Reported Valtrex (Valacyclovir HCl) 500 Mg Tab 500 Mg PO BID PRN 08/25/14 Reported TAKE DIRECTED FOR 3 DAYS WHEN NEEDED FOR OUTBREAKS Review of Systems Constitutional: No fever, No chills, No weight loss, No fatigue Respiratory: No cough, No sputum, No shortness of breath, No dyspnea at rest Cardiac: No chest pain, No edema, No palpitations Abdomen: No pain, No nausea, No vomiting, No diarrhea Psych: + depression symptoms, + substance abuse, + problem reported (thoughts of SI) Skin: No rash, No itch, No color change, No bleeding Physical Exam Date Time Temp Pulse Resp B/P (MAP) Pulse Ox O2 Delivery O2 Flow Rate FiO2 10/30/17 07:07 36.5 60 16 127/81 61 131/85 General Appearance: no apparent distress Eyes: PERRL ENT: hearing grossly normal Neck: supple, trachea midline Respiratory/Chest: lungs clear, normal breath sounds, no respiratory distress, no accessory muscle use Cardiovascular: regular rate, rhythm, no edema, no gallop, no JVD Abdomen: normal bowel sounds, soft, no organomegaly, no pulsatile mass Neurologic/Psych: alert, oriented x 3 Skin: normal color, no jaundice, warm/dry, no rash Impression Patient is a 42 year old female w/ history of RYGB w/ a complicated post- operative report now with IBS, dysmotility and chronic nausea/vomiting maintained on zofran and emend infusions. Recent increase in stress and trigger , poly-substance abuse w/ report of heroin use from surgically placed port. Pt wants the port removed. Plan Continue Zofran PRN Agree with port removal Will discuss with Dr. Bryant Appreciate additional recommendations per primary service Continue other medications as prescribed GI to sign off. I performed a history and physical examination of the patient. I have discussed the patient's case, impression and plan with RICARDO Douglass. Her note reflects my findings and plan. High risk of endocarditis with this high risk behavior. Because of this, port should be removed. Kash Rodriguez MD
--- NOTE | 2017-10-30 15:43 | Psychiatric Progress Notes ---
Progress Note Date of Service Oct 30, 2017. Interval History Jamaica Harris is a 42 year old white female who currently lives in [place], [place] with a past psychiatric history of bipolar disorder type I, substance abuse history and borderline personality disorder traits who was admitted [facility] voluntary commitment on 10/28/17 after being brought in to the emergency department following a [facility] crisis consult in which she voiced recent suicidal thoughts and abusing heroine and Ativan in the context of ongoing psychosocial stressors. Chief Complaint "Things have cleared up a little bit". Subjective Patient was seen & assessed interval progress reviewed with Treatment Team. Staff reports the patient was restarted on psychiatric medications with plans to taper Ativan and other controlled substances. Pt reports history of injecting heroin into her port. She is reported to be interested in having the port removed to prevent further temptation of heroin abuse. Pt was seen today to assess progress since admission. Pt states she has noticed "things have cleared up a little bit." She states she has had more clarity of thought and has been able to better process her recent actions. She reports feeling a bit better, but knows, "I'm safe here, I don't have the temptations to use while I' m here." She reports a weekly infusion scheduled for 11/01/17 @ 1200 due to previous gastric bypass surgery which will either require transportation to the [facility] or reschedule the appointment. Pt denies current SI/HI, or other psychiatric concerns. Review of Systems Psych: denies symptoms other than stated above Constitutional: denied Cardiovascular: denied GI: denied Neurologic: denied Remainder of 10 body systems also reviewed and denied other than noted above. Sleep Information Total Hours of Sleep: 6.50 Meal Information Percent of Breakfast Consumed: 100 Percent of Lunch Consumed: 80 Percent of Dinner Consumed: 80 Mental Status Exam During interview pt is: alert and oriented, cooperative Appearance: appropriately dressed, appropriately groomed Motor behavior is: steady gait & station Speech: normal in rate, rhythm & volume Affect: blunted Mood is: other ("a little better", "cleared up a bit") Thought process: clear, coherent Thought content: reality based without delusions Suicidal thought are: denied ("safe here, no temptations"), Plan: denied, Intent: denied Homicidal thoughts are: denied Hallucinations: denies auditory, denies visual Cognition: memory grossly intact, attention grossly intact, language grossly intact Intelligence estimated to be: consistent with level of education Insight: limited Judgement: limited Impression Pt reports mild improvement in mood and that her thoughts have "cleared up a little bit". Pt states she feels safe here as there is no temptation to use. Pt is interested in having her port removed, as she frequently injects heroin directly into her port. Pt shares she will not be able to stop using until this immediate access is gone. GI consult quotes patient as saying, "I am unable to change a lot of the stressors in my life, but I can change this port. " RICARDO and completing initial GI consult agree with port removal and plan to discuss further with Dr. Bryant - patient's outpatient manager of transportation. Pt requires ongoing inpatient mental health treatment as reported improvement has been minimal and risk factors have not been mitigated. Pt remains at risk of harm to self if discharged prematurely. Plan (1) Bipolar I disorder 10/28--The patient is admitted to [facility] ([facility] unit) on q 15 min checks (behavioral with suicide precautions) for safety. The patient will participate in group, recreational and milieu therapies and will be offered additional individual and family sessions as clinically appropriate. Recommend family meeting with her Boyfriend Patient is presenting as depressed. Denies mood swings, connor or hypomania. Continue Ariprazole 20 mg po q day, Sertraline 100mg q day Remeron and Ambien for sleep. 10/29--will split dose Abilify starting tomorrow. Patient expressed interested in injectable med, reviewed that insurance may consider regardless of dx given her GI issues but cannot determine today. Hospital doesn't carry Remeron jaime tab but may also be better absorbed as outpatient. Reviewed plan to taper Ambien in preparation for d/c. 10/30 - continue current medications. - Discussed Emend infusion with nursing who will review coverage for the date and determine availability to transport patient to appointment. Aware of need to reschedule if staff is unavailable to transport patient. - GI consult reviewed - appreciate recommendations made - continue to encourage participation in group programming (2) Benzodiazepine abuse 10/28 received 2 mg total of Ativan yesterday. 10/29 Ativan 0.5 mg TID today with plan for further taper as tolerated. BP is better this am than yesterday pm. PDMP database query confirmed that filling 90 tabs of Ativan montly for past 6 months. Last fill of #90 pills on 10/23 ( NEED TO CONFIRM location of supply). Reviewed risks of respiratory depression with opiates can result in . (3) H/O drug abuse 10/28 Avoid opiates, benzodiazepines given history of abuse. Concern does arise for use of Ambien for sleep. 10/29 Active heroin abuse for several months Brief intervention was offered and accepted. Intervention (if performed) was greater than 5 min in length. Brief interventions include: 1. Assess Readiness to Quit, 2. Advise: Help Patient to Reduce or Abstain from heroin 3. Agree: Set Specific, Feasible Goals , 4. Assist: Anticipate barriers, Problem-Solving Solutions. Social work to 5. Arrange: Referrals to appropriate treatment. Summary of intervention: The patient is in contemplation stage with regards to transtheoretical model of change. She wants port removed but doesn't want D&A counseling or rehab. She lives in an area with ready access to heroin. The patient will be provided with recovery materials to continue to education self on how to cope with their condition without drug and benzo use. (4) Post Gastric Bypass Syndrome 10/28 With chronic nausea, post prandial vomiting, electrolyte disturbances.Recommend continuation for the following: repeat K in am 10/29 K improving, continue supplementation. Patient is requesting Zofran prior to meals, will attempt few doses today pending GI consult, mainly as would recommend port removal, ideally prior to leaving hospital. Would be scheduled for infusions 11/01 if remains hospitalized. (5) Asthma Continue Proventil MDI 2 puffs q 4 hrs prn sob/wheeze and Flovent 2 puff BID SOB/wheeze (6) Hypertension Continue Lisinopril 10 mg daily (7) Headache Continue Topamax, Maxalt and Tylenol prn migraine. Continue Gabapentin as it helps with neuropathy due to Topamax side effect, (8) Seizure disorder 10/28 Continue Keppra, last episode "few weeks" ago, seizure precautions (9) MRSA Nasal swab today. She will need an additional swab in one week per protocol. Discharge / Aftercare Planning Primary Care Physician: Name: MARI-Dr. Harrell Appointment Notes: Sees every 3 months Psychiatrist: Name: Dr. Lee [facility] Date of Appointment: Nov 02, 2017 Time of Appointment: 1:00 p.m. Appointment Notes: [address] [place] [address] Therapist: Name: Ann arango Recruitment Intern: Name: Kervin Marieer - MH/ID Date of Appointment: Oct 31, 2017 Time of Appointment: 11:00 a.m. Appointment Notes: Sees every Monday at 11 Partial or Psych Rehab: Name: [facility] - Ann Appointment Notes: Sees every Monday Rotational Moulding Operator: Name: Antonia Appointment Notes: Sees 3-4 times per week Specialist: Name: Dr. Annette Ring Other: Name of Appointment #1: [facility] - Jamia Barrow Appointment #1 Notes: Sees every week on Fridays Visit Code E&M Code: 86880 Inventory Assets Strengths: daughter, boyfriend Needs: custody siddiqui, health concerns, Risk Factors Assessment : Yes /single/: Yes Health problems: Yes Mental Health Diagnoses: Yes Substance use disorders: Yes Previous attempt: Yes Family history of suicide: Yes Previous psychiatric stay: Yes Hopelessness: Yes Smoker: No Protective Factors Assessment Uatsdin beliefs: Yes : No Responsible for young children: No Employed: No Stable relationships: Yes Supportive family: No Good rapport with provider: Yes Data Vital Signs Last 24 Hrs: Date Time Temp Pulse Resp B/P (MAP) Pulse Ox O2 Delivery O2 Flow Rate FiO2 10/30/17 07:07 36.5 60 16 127/81 61 131/85 Meds Administered Last 24 Hrs: Meds Administered (Past 24Hrs) Medications (Trade) Dose Ordered Sig/Rigo Route Start Time Stop Time Status Last Admin Dose Admin Aripiprazole (Abilify Tab) 20 mg DAILY PO 10/29/17 09:00 10/29/17 11:11 DC 10/29/17 09:27 20 MG Cholecalciferol (Vitamin D Tab) 1,000 inter.unit DAILY PO 10/29/17 09:00 11/28/17 08:59 10/30/17 07:50 1,000 INTER.UNIT Fluticasone Propionate (Flovent Hfa 110MCG Inhaler) 2 puffs BID INH 10/28/17 22:00 11/27/17 21:59 10/30/17 07:51 2 PUFFS Levetiracetam (Keppra Tab) 1,000 mg BID PO 10/28/17 22:00 11/27/17 21:59 10/30/17 07:50 1,000 MG Lisinopril (Zestril Tab) 10 mg DAILY PO 10/29/17 09:00 11/28/17 08:59 10/30/17 07:50 10 MG Mirtazapine (Remeron Tab) 15 mg HS PO 10/28/17 22:00 11/27/17 21:59 10/29/17 21:52 15 MG Potassium Chloride (Klor-Con Tab) 20 meq DAILY PO 10/29/17 09:00 11/28/17 08:59 10/30/17 07:50 20 MEQ Thiamine HCl (Vitamin B-1 Tab) 50 mg DAILY PO 10/29/17 09:00 11/28/17 08:59 10/30/17 07:50 50 MG Topiramate (Topamax Tab) 150 mg BID PO 10/28/17 22:00 11/27/17 21:59 10/30/17 07:49 150 MG Zolpidem Tartrate (Ambien Tab) 10 mg HSZ PO 10/28/17 22:00 10/29/17 11:11 DC 10/28/17 22:21 10 MG Sertraline HCl (Zoloft Tab) 50 mg DAILY PO 10/29/17 09:00 10/29/17 09:01 DC 10/29/17 09:20 50 MG Aripiprazole (Abilify Tab) 10 mg BID PO 10/30/17 09:00 11/28/17 08:59 10/30/17 07:48 10 MG Zolpidem Tartrate (Ambien Tab) 5 mg HSZ PO 10/29/17 22:00 11/27/17 21:59 10/29/17 21:50 5 MG Sertraline HCl (Zoloft Tab) 50 mg BID PO 10/29/17 22:00 11/28/17 21:59 10/30/17 07:50 50 MG
[2017-10-30] MEDS: ZOLPIDEM TARTRATE 10 MG TAB PO SCH (21:17)
[2017-10-30] MEDS: MIRTAZAPINE TAB 15 MG TAB PO SCH (21:18)
[2017-10-30 21:37] VITALS: BP 137/86; PULSE 83
[2017-10-31] MEDS: ACETAMINOPHEN 325 MG TAB PO PRN (04:44)
[2017-10-31 06:55] VITALS: BP_SYST 127; BP_SYST 134; BP_DIAS 82; BP_DIAS 85; PULSE 51; PULSE 54; TEMP 36.4
[2017-10-31] MEDS: LORAZEPAM 0.5 MG TAB PO SCH ×2 (08:50→21:12)
[2017-10-31] MEDS: SERTRALINE HCL 100 MG TAB PO SCH ×2 (08:51→21:14)
[2017-10-31] MEDS: FLINTSTONES COMPLETE CHEWABLE TAB PO SCH (08:51)
[2017-10-31] MEDS: THIAMINE HCL 50 MG TAB PO SCH (08:51)
[2017-10-31] MEDS: TOPIRAMATE 50 MG TAB PO SCH ×2 (08:51→21:13)
[2017-10-31] MEDS: CHOLECALCIFEROL 1000 INTER.UNIT TAB PO SCH (08:51)
[2017-10-31] MEDS: GABAPENTIN 300 MG CAP PO SCH ×3 (08:51→21:12)
[2017-10-31] MEDS: ARIPIprazole TAB 10 MG TAB PO SCH ×2 (08:51→21:11)
[2017-10-31] MEDS: LISINOPRIL 10 MG TAB PO SCH (08:52)
[2017-10-31] MEDS: LEVETIRACETAM 500 MG TAB PO SCH ×2 (08:52→21:12)
[2017-10-31] MEDS: POTASSIUM CHLORIDE 20 MEQ TABCR PO SCH (08:52)
[2017-10-31] MEDS: FLUTICASONE HFA 110MCG INHALER INH SCH ×2 (08:52→21:11)
--- NOTE | 2017-10-31 09:46 | Psychiatric Progress Notes ---
Progress Note Date of Service Oct 31, 2017. Interval History Jamaica Harris is a 42 year old white female who currently lives in [place], [place] with a past psychiatric history of bipolar disorder type I, substance abuse history and borderline personality disorder traits who was admitted 201 voluntary commitment on 10/28/17 after being brought in to the emergency department following a CANHELP crisis consult in which she voiced recent suicidal thoughts and abusing heroine and Ativan in the context of ongoing psychosocial stressors. Chief Complaint "I'm doing good". Subjective Patient was seen & assessed interval progress reviewed with Nursing. Staff report she continues to refuse substance abuse treatment and a family meeting, and has been going to groups, with limited participation. She frequently requests as needed medications. Spoke with Dr. Lee and reviewed her records. She last saw Jamaica 10/24/2017, after she sent her an email stating that she believes she has Munchausen Syndrome, as she exaggerates her symptoms, and lies in order to make herself ill. She admitted to injecting feces into her IV twice (maybe in 2011 or 2013) when she was at [facility] to make herself septic, was in the ICU, and said she didn' t know why she did it. She also stated the police have subpoenaed her medical records from Dr. Bryant and she didn't know why. Her outpatient child welfare caseworker was present during her appointment as well. They composed a letter to all of her outpatient physicians informing them of her behavior and that she met criteria for factitious disorder, and it was sent to them. The patient and her child welfare caseworker were also given copies, and she was advised to inform all of her providers of this. She was also strongly recommended to engage in psychotherapy at the [facility] psych clinic, which she stated she was willing to consider, but did not commit to. She also admitted to accidentally overdosing on heroin, which she injected through her port, and then taking all of her Lorazepam and zolpidem well high (about 2 weeks worth), for which she was seen in the emergency room the next day (10/10/2017). She was discharged home from the emergency room. She was able to contract for safety, and said she had just picked up her Lorazepam refill (#90 1 mg tablets), and agreed not to overdose on it. She said she would not be able to refill her Ambien for about [address] Lee would like to continue to work with her, but states participation in individual therapy will be a condition of treatment. On my assessment today, she states mood is improving, which she attributes to being in the hospital and being away from stressors. She is worried about her port, stating if she doesn't get it removed she worries she'll continue to use it to inject heroin. She admits she could still inject heroin into her veins, and that 1 of her primary concerns with discharge is that she will continue to use. She then proceeds to refuse every form of substance abuse treatment that is discussed, including inpatient rehab, outpatient treatment, therapy, and 12 step programs, saying she has already tried all of these. She continues to refuse a family meeting with her boyfriend, stating that he refused to be involved in a meeting during a previous admission, so she does not even want to ask him. She will not allow staff to speak with him, and according to her outpatient child welfare caseworker, he has been very concerned about her and wanting to know what is going on. After much discussion about safety concerns, including her access to prescription medications at home (specifically the remaining Lorazepam pills, as she reported to staff previously that she had a stash of them), she says she will allow staff to speak with him to confirm that her Lorazepam is gone. She claims that the bottle is empty, and that she took all 90 tablets which she filled 10/23/2017 prior to her presentation here 10/27/2017. She states that her boyfriend does not know she is abusing heroin, and she does not want him to find out, because he will kick her out. She states that no one other than some of her outpatient providers knows about her substance abuse, and cannot give any suggestions for how she might get or stay sober. She is not sure how she can make the transition to outpatient, stating that her biggest concerns are lack of structured time at home, racing thoughts, sleep disruption, and substance abuse. She reports that her meeting with her child welfare caseworker Kervin and the social services specialist went well, which conflicts with staff's reports that she declined all recommended treatment and interventions, other than a referral to the [facility] clinic for therapy. She states she wants to be discharged by the end of the week, as she has custody of her daughter from Monday through Monday. She did not mention her recent diagnosis of factitious disorder or disclosure to Dr. Lee that she has lied about and feigned symptoms, including injecting feces into her port and being admitted to the ICU with sepsis. When asked about this, she said she didn't mention it because "it hasn't come up." Admits she discussed with Dr. Lee that she would be responsible for informing her providers of this. She admits one of her biggest stressors was finding out her medical records had been subpoenaed and wondering if she was "in trouble" for her behavior. Discussed the need for honesty in treatment, and difficulties in providing appropriate treatment when she is not forthcoming or refuses recommendations. Discussed concerns with safety, including risk of ongoing drug abuse, access to prescription medications at home, and lack of honesty about what she has access to, as evidenced by conflicting reports about her Ativan. Advised her that Ativan and Ambien tapers are continuing and that refills are being cancelled by the prescribing physician, and she expressed understanding. States she is willing for a therapy referral "if I have to, but I already have os many appointments." Attempted to reflect back that she is saying she has too many appointments, but also saying she doesn't have enough support and structure and that is one of her main concerns with discharge. Sleep Information Total Hours of Sleep: 6.75 Meal Information Percent of Breakfast Consumed: 100 Percent of Lunch Consumed: 80 Percent of Dinner Consumed: 100 Mental Status Exam During interview pt is: alert and oriented, cooperative (Partially, not necessarily forthcoming with information) Appearance: appropriately dressed (Wearing a long, black velvet dressand glasses, head is shaved, obese), appropriately groomed Eye contact is: fair Motor behavior is: steady gait & station, no abnormal motor movements Speech: normal in rate, rhythm & volume Affect: depressed, blunted Mood is: other ("A little better here") Thought process: clear, coherent Thought content: cognitive distortions Suicidal thought are: denied (Denies suicidal thoughts in the hospital, but cannot contract for safety outside the hospital continues to have thoughts of injecting heroin into her port) Homicidal thoughts are: denied Hallucinations: denies auditory, denies visual Cognition: memory grossly intact, attention grossly intact, language grossly intact Intelligence estimated to be: consistent with level of education Insight: poor Judgement: poor Impression Pt reports improvement in symptoms and feels safe here, but cannot contract for safety outside of the hospital, citing multiple stressors and fears that she would again inject heroin into her port. She has not been forthcoming regarding her recent diagnosis of factitious disorder, is giving inconsistent and conflicting reports about her prescription medication supply at home, and has not had dressed any of her stressors. She continues to refuse substance abuse treatment and a family meeting with her boyfriend, and remains at high risk for harm to herself if discharged prematurely. Plan (1) Bipolar I disorder 10/28--The patient is admitted to [facility] ([facility] mental health unit) on q 15 min checks (behavioral with suicide precautions) for safety. The patient will participate in group, recreational and milieu therapies and will be offered additional individual and family sessions as clinically appropriate. Recommend family meeting with her Boyfriend Patient is presenting as depressed. Denies mood swings, connor or hypomania. Continue Ariprazole 20 mg po q day, Sertraline 100mg q day Remeron and Ambien for sleep. 10/29--will split dose Abilify starting tomorrow. Patient expressed interested in injectable med, reviewed that insurance may consider regardless of dx given her GI issues but cannot determine today. Hospital doesn't carry Remeron jaime tab but may also be better absorbed as outpatient. Reviewed plan to taper Ambien in preparation for d/c. 10/30 - continue current medications. - Discussed [facility] infusion with nursing who will review coverage for the date and determine availability to transport patient to appointment. Aware of need to reschedule if staff is unavailable to transport patient. - GI consult reviewed - appreciate recommendations made - continue to encourage participation in group programming 10/31 -Discontinue zolpidem due to substance abuse, recent overdose on it, and high risk of harm to self if she has access to this type of medication. -Continue sertraline 50 mg twice daily, aripiprazole 10 mg twice daily, and mirtazapine 15 mg nightly. -Care coordinated with Dr. Lee. Refer for outpatient therapy through the [facility] psych clinic. -Meeting held with Kervin, but patient continues to refuse treatment recommendations, including a family meeting, substance abuse treatment, and is not being forthcoming with staff. - (2) Benzodiazepine abuse 10/28 received 2 mg total of Ativan yesterday. 10/29 Ativan 0.5 mg TID today with plan for further taper as tolerated. BP is better this am than yesterday pm. PDMP database query confirmed that filling 90 tabs of Ativan monthly for past 6 months. Last fill of #90 pills on 10/23 ( NEED TO CONFIRM location of supply). Reviewed risks of respiratory depression with opiates can result in . 10/31 -decrease Lorazepam to 0.5 mg twice daily 2 days, then 0.5 mg nightly 2 days, then discontinue. Coordinated care with Dr. Lee, reviewed recent emergency room visit for heroin, lorazepam, and Ambien overdose, as well as continued abuse of Lorazepam, taking 40 mg over a 4 day period prior to this admission. Has also been mixing these medications with heroin, clear risk for severe drug drug interactions and , would not recommend she be prescribed any controlled substances, or medications that are addictive or abusable. -Dr. Lee is going to discontinue her refills of zolpidem and Lorazepam. -Recommend that somebody bring in her home supply of Lorazepam so that it can be destroyed. She filled 90 tablets on 10/23/2017 just prior to admission, and reported taking about 40 of them over a 4 day period, so should still have around 50 tablets left. She told ER staff that she had taken 64 tablets in the 4 day period prior to admission, and [facility] staff reported she told them she had a stash of 20 Ativan tablets. She is refusing contact with her boyfriend, and today is stating that she took all 90 tablets of lorazepam over the 4 days prior to admission and that they are gone. This is highly unlikely, and given the severity of the safety concerns, we will continue efforts to recover these medications and dispose of them safely. (3) H/O drug abuse 10/28 Avoid opiates, benzodiazepines given history of abuse. Concern does arise for use of Ambien for sleep. 10/29 Active heroin abuse for several months Brief intervention was offered and accepted. Intervention (if performed) was greater than 5 min in length. Brief interventions include: 1. Assess Readiness to Quit, 2. Advise: Help Patient to Reduce or Abstain from heroin 3. Agree: Set Specific, Feasible Goals , 4. Assist: Anticipate barriers, Problem-Solving Solutions. Social work to 5. Arrange: Referrals to appropriate treatment. Summary of intervention: The patient is in contemplation stage with regards to transtheoretical model of change. She wants port removed but doesn't want D&A counseling or rehab. She lives in an area with ready access to heroin. The patient will be provided with recovery materials to continue to education self on how to cope with their condition without drug and benzo use. 10/31 -she continues to refuse substance abuse treatment, although inpatient rehab is recommended. -GI recommends port removal, to be scheduled on the day of discharge. Discharging her with a port in place would be very dangerous given her repeated injection of heroin into her port, as well as injecting feces in order to make herself septic. -Taper off lorazepam and zolpidem as above. Care coordinated with prescribing physician, Dr. Lee, who will cancel her refills. -Would not recommend she be prescribed any controlled substances, medications that are addictive or abusable, given the high risk of harm. 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 (4) Factitious disorder 10/31 - Reviewed records from Dr. Lee, and discussed the case with her. Patient sent her an email at the end of September admitting that she had been lying about and exaggerating her symptoms, and injected feces into her port at least twice to make herself ill. She has also told others that she has cancer and is receiving chemo. She was diagnosed with factitious disorder, meets the criteria as she has falsified symptoms, presents herself to others is ill, and does this in the absence of obvious external rewards. -Care coordinated with her commodity director, Dr. Bryant. He received a letter from Dr. Lee so is aware of her new diagnosis. -Staff to determine logistics to be worked out in order to schedule her for same day surgery to have port removed at the time of discharge from the [facility]. (5) Post Gastric Bypass Syndrome 10/28 - With chronic nausea, post prandial vomiting, electrolyte disturbances.Recommend continuation for the following: repeat K in am 10/29 - K improving, continue supplementation. Patient is requesting Zofran prior to meals, will attempt few doses today pending GI consult, mainly as would recommend port removal, ideally prior to leaving hospital. Would be scheduled for infusions 11/01 if remains hospitalized. (6) Asthma Continue Proventil MDI 2 puffs q 4 hrs prn sob/wheeze and Flovent 2 puff BID SOB/wheeze (7) Hypertension Continue Lisinopril 10 mg daily (8) Headache Continue Topamax, Maxalt and Tylenol prn migraine. Continue Gabapentin as it helps with neuropathy due to Topamax side effect, and ensure follow up with outpatient neurologist. (9) Seizure disorder 10/28 Continue Keppra, last episode "few weeks" ago, seizure precautions (10) MRSA 10/28 - Nasal swab today. She will need an additional swab in one week per protocol. 10/31 -MRSA nasal swab on 10/28/2017 negative; second swab ordered for 11/04/2017 per protocol. Discharge / Aftercare Planning Primary Care Physician: Name: [facility]-Dr. Harrell Appointment Notes: Sees every 3 months Psychiatrist: Name: Dr. Lee [facility] Date of Appointment: Nov 02, 2017 Time of Appointment: 1:00 p.m. Appointment Notes: [address] [place] [id number] Therapist: Name: Ann [employer]ango [employer] Specialist: Name: Kervin COLEMAN/ID Date of Appointment: Oct 31, 2017 Time of Appointment: 11:00 a.m. Appointment Notes: Sees every Monday at 11 Partial or Psych Rehab: Name: [facility] Appointment Notes: Sees every Monday Pricing Director: Name: Antonia Appointment Notes: Sees 3-4 times per week Specialist: Name: Dr. Annette Ring Other: Name of Appointment #1: [facility] Barrow Appointment #1 Notes: Sees every week on Fridays Visit Code E&M Code: 16167 Inventory Assets Strengths: daughter, boyfriend Needs: custody siddiqui, health concerns, truthfulness with medical treatment providers, address substance abuse, address safety issues Risk Factors Assessment : Yes /single/: Yes Higher / Fall in social status: No Access to guns: No Health problems: Yes Mental Health Diagnoses: Yes Substance use disorders: Yes Previous attempt: Yes Family history of suicide: Yes Previous psychiatric stay: Yes Hopelessness: Yes Smoker: No Protective Factors Assessment Restorationist beliefs: Yes : No Responsible for young children: No Employed: No Stable relationships: Yes Supportive family: No Good rapport with provider: Yes Data Vital Signs Last 24 Hrs: Date Time Temp Pulse Resp B/P (MAP) Pulse Ox O2 Delivery O2 Flow Rate FiO2 10/31/17 06:55 36.4 51 16 127/85 54 134/82 10/30/17 21:37 83 137/86 Meds Administered Last 24 Hrs: Meds Administered (Past 24Hrs) Medications (Trade) Dose Ordered Sig/Rigo Route Start Time Stop Time Status Last Admin Dose Admin Aripiprazole (Abilify Tab) 10 mg BID PO 10/30/17 09:00 11/28/17 08:59 10/31/17 08:51 10 MG Zolpidem Tartrate (Ambien Tab) 5 mg HSZ PO 10/29/17 22:00 11/27/17 21:59 10/30/17 21:17 5 MG Sertraline HCl (Zoloft Tab) 50 mg BID PO 10/29/17 22:00 11/28/17 21:59 10/31/17 08:51 50 MG Ondansetron HCl (Zofran Odt) 8 mg TIDM PRN PO 10/29/17 12:15 11/27/17 13:29 10/30/17 16:29 8 MG Multivitamins (Flintstones Complete Tab) 1 tab QAM PO 10/31/17 09:00 11/30/17 08:59 10/31/17 08:51 1 TAB
[2017-10-31] MEDS: MIRTAZAPINE TAB 15 MG TAB PO SCH (21:13)
[2017-11-01] MEDS: ACETAMINOPHEN 325 MG TAB PO PRN ×2 (02:35→17:11)
[2017-11-01 06:55] VITALS: BP_SYST 124; BP_SYST 135; BP_DIAS 86; BP_DIAS 90; PULSE 53; PULSE 66; TEMP 36.6
[2017-11-01] MEDS: FLUTICASONE HFA 110MCG INHALER INH SCH ×2 (07:25→21:05)
[2017-11-01] MEDS: LORAZEPAM 0.5 MG TAB PO SCH ×2 (07:25→21:05)
[2017-11-01] MEDS: ARIPIprazole TAB 10 MG TAB PO SCH ×2 (07:25→21:05)
[2017-11-01] MEDS: POTASSIUM CHLORIDE 20 MEQ TABCR PO SCH (07:26)
[2017-11-01] MEDS: GABAPENTIN 300 MG CAP PO SCH ×3 (07:26→21:06)
[2017-11-01] MEDS: LEVETIRACETAM 500 MG TAB PO SCH ×2 (07:26→21:06)
[2017-11-01] MEDS: FLINTSTONES COMPLETE CHEWABLE TAB PO SCH (07:26)
[2017-11-01] MEDS: TOPIRAMATE 50 MG TAB PO SCH ×2 (07:27→21:07)
[2017-11-01] MEDS: CHOLECALCIFEROL 1000 INTER.UNIT TAB PO SCH (07:27)
[2017-11-01] MEDS: THIAMINE HCL 50 MG TAB PO SCH (07:27)
[2017-11-01] MEDS: SERTRALINE HCL 100 MG TAB PO SCH ×2 (07:28→21:08)
[2017-11-01] MEDS: LISINOPRIL 10 MG TAB PO SCH (07:28)
--- NOTE | 2017-11-01 09:14 | Psychiatric Progress Notes ---
Progress Note Date of Service Nov 01, 2017. Interval History Jamaica Harris is a 42 year old white female who currently lives in [place], [place] with a past psychiatric history of bipolar disorder type I, substance abuse history and borderline personality disorder traits who was admitted 201 voluntary commitment on 10/28/17 after being brought in to the emergency department following a [facility] crisis consult in which she voiced recent suicidal thoughts and abusing heroine and Ativan in the context of ongoing psychosocial stressors. Chief Complaint "Pretty good". Subjective Patient was seen & assessed interval progress reviewed with Treatment Team. Staff report she continues to refuse a family meeting, but did allow staff to contact her boyfriend to bring in her home medications. He brought in an empty bottle of Ativan 1 mg #90 pills which was filled on 10/23/2017. There was no Ambien in the back. Staff attempted to contact [email or web address], but had to leave a message. Their records were reviewed; they have been seeing her since June 2017, last visit on 10/27/2017. At that time, she told them that she was using drugs again, and that she would eventually overdose on heroin. She also admitted to abusing her Ativan. She reported feeling depressed, and talked about wishing that someone else would kill her, as 10/30/2017 was going to be very difficult day for her, although it does not specify what was to occur on that day. She refused the recommendations to seek inpatient treatment. Her family service caseworker Lor and Gurpreet Peña were contacted, and she was brought to the emergency room. On a previous visit on 10/13/2017, she told the [employer] that her chemo was being stopped as her talks and levels were increasing, and that the toxins were related to her herbicides. She also stated that she been seen in the emergency room for a heroin, Ativan, and Ambien overdose, and was told that she tested positive for fentanyl. She had not been compliant with her Keppra, stating that it had a bad taste which made her nauseated. She also complained about her outpatient neurologist, and said she started using heroin again after becoming upset with her. Reviewed her emergency room records, and her drug screen has been completely negative on her last 2 presentations, including 10/10/2017 when she reported having overdosed on heroin and Lorazepam. Despite being prescribed Lorazepam 1 mg 3 times daily, all of her drug screens have been negative for benzodiazepines. 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 She had a meeting with her family service caseworker, Lor , yesterday, and show great resistance to making any changes that were recommended. She continues to refuse any kind of substance abuse treatment, involvement of her boyfriend or other supports/friends, but did agree to a referral for individual therapy. Today on my assessment she reports she just met with the general surgeon and was told they'd her port surgery tomorrow while she is still inpatient here. Describes mood as "stable," and rates it a 6 out of 10, "that's my base." Denies significant anxiety or suicidal thoughts. She clarified that her license has been revoked by her neurologist, although she still has an active license, but she does not drive and sold her car. She has been using county transportation to get around. She further clarifies that she has unsupervised visitation with her 13-year-old daughter on weekends and Tuesdays, but that she does not use drugs when her daughter is under her care. Expressed concerns about her unwillingness to address her substance abuse, and her ongoing lack of honesty in treatment. She continues to give false information, for example discussed her reports to her [employer] that she had tested positive for fentanyl in our emergency room after her heroin overdose 10/10/2017, as her drug screen was negative. She says she does not know why she continues to lie, "it is like I have amnesia, it is like when you take a bunch of Ativan, do not remember parts of the days." Also discussed her negative drug screens on both recent presentations, although she reported having used extremely large quantities of Lorazepam in the 24 hours prior to presentation. Discussed that it would be very unlikely that the drug screen would be negative any circumstances, and questioned if she had been truthful about her Ativan overdose , which she stated she had. Again discussed the challenges of being able to rebuild trust in treatment and relying on her reports of her symptoms, and she is unable to offer any thoughts on how to work on this. She states that part of her would like to just cancel all of her outpatient appointments and stop seeing doctors so that she can avoid having to address her behavior. Spent some time discussing factitious disorder, and potential underlying motivations for her dishonesty. Sleep Information Total Hours of Sleep: 7.25 Meal Information Percent of Breakfast Consumed: 80 Percent of Lunch Consumed: 80 Percent of Dinner Consumed: 100 Mental Status Exam During interview pt is: alert and oriented, cooperative (Partially, not always honest in her report, even when confronted with inaccurate information she's given) Appearance: appropriately dressed, appropriately groomed (Obese, head shaved, wearing glasses) Eye contact is: good Motor behavior is: steady gait & station, no abnormal motor movements Speech: normal in rate, rhythm & volume Affect: blunted Mood is: other ("Stable") Thought process: goal directed Thought content: cognitive distortions Suicidal thought are: denied (Continues to state that she would likely inject heroin into her port if she were not in the hospital, even though she knows this could kill her) Homicidal thoughts are: denied Hallucinations: denies auditory, denies visual Cognition: memory grossly intact, attention grossly intact, language grossly intact Intelligence estimated to be: consistent with level of education Insight: poor Judgement: poor Impression Mood has improved and she feels safe here, but cannot contract for safety outside of the hospital, stating that she would again inject heroin into her port, and would not care if she . She has not been forthcoming regarding her recent diagnosis of factitious disorder, and has given multiple inconsistent and conflicting reports about her prescription medication supply at home, and has not been willing to address any of her stressors or have a family meeting. She continues to refuse substance abuse treatment and a family meeting with her boyfriend, and remains at high risk for harm to herself if discharged prematurely. She has been seen by general surgery and will have her port removed tomorrow, which will decrease at least some of her risk of self injury. Plan (1) Bipolar I disorder 10/28--The patient is admitted to [facility] on q 15 min checks (behavioral with suicide precautions) for safety. The patient will participate in group, recreational and milieu therapies and will be offered additional individual and family sessions as clinically appropriate. Recommend family meeting with her Boyfriend Patient is presenting as depressed. Denies mood swings, connor or hypomania. Continue Ariprazole 20 mg po q day, Sertraline 100mg q day Remeron and Ambien for sleep. 10/29--will split dose Abilify starting tomorrow. Patient expressed interested in injectable med, reviewed that insurance may consider regardless of dx given her GI issues but cannot determine today. Hospital doesn't carry Remeron jaime tab but may also be better absorbed as outpatient. Reviewed plan to taper Ambien in preparation for d/c. 10/30 - continue current medications. - Discussed [facility] infusion with nursing who will review coverage for the date and determine availability to transport patient to appointment. Aware of need to reschedule if staff is unavailable to transport patient. - GI consult reviewed - appreciate recommendations made - continue to encourage participation in group programming 10/31 -Discontinue zolpidem due to substance abuse, recent overdose on it, and high risk of harm to self if she has access to this type of medication. -Continue sertraline 50 mg twice daily, aripiprazole 10 mg twice daily, and mirtazapine 15 mg nightly. -Care coordinated with Dr. Lee. Refer for outpatient therapy through the [facility] psych clinic. -Meeting held with Kervin, but patient continues to refuse treatment recommendations, including a family meeting, substance abuse treatment, and is not being forthcoming with staff. 11/01 -Refer to the [facility] psych clinic for individual therapy. -Continue to encourage family meeting with her boyfriend, which she is still refusing. -Continue to encourage honesty in treatment. (2) Benzodiazepine abuse 10/28 received 2 mg total of Ativan yesterday. 10/29 Ativan 0.5 mg TID today with plan for further taper as tolerated. BP is better this am than yesterday pm. PDMP database query confirmed that filling 90 tabs of Ativan monthly for past 6 months. Last fill of #90 pills on 10/23 ( NEED TO CONFIRM location of supply). Reviewed risks of respiratory depression with opiates can result in . 10/31 -decrease Lorazepam to 0.5 mg twice daily 2 days, then 0.5 mg nightly 2 days, then discontinue. Coordinated care with Dr. Lee, reviewed recent emergency room visit for heroin, lorazepam, and Ambien overdose, as well as continued abuse of Lorazepam, taking 40 mg over a 4 day period prior to this admission. Has also been mixing these medications with heroin, clear risk for severe drug drug interactions and , would not recommend she be prescribed any controlled substances, or medications that are addictive or abusable. -Dr. Lee is going to discontinue her refills of zolpidem and Lorazepam. -Recommend that somebody bring in her home supply of Lorazepam so that it can be destroyed. She filled 90 tablets on 10/23/2017 just prior to admission, and reported taking about 40 of them over a 4 day period, so should still have around 50 tablets left. She told ER staff that she had taken 64 tablets in the 4 day period prior to admission, and [facility] staff reported she told them she had a stash of 20 Ativan tablets. She is refusing contact with her boyfriend, and today is stating that she took all 90 tablets of lorazepam over the 4 days prior to admission and that they are gone. This is highly unlikely, and given the severity of the safety concerns, we will continue efforts to recover these medications and dispose of them safely. 11/01 -boyfriend brought in home medications, and there is no Lorazepam or zolpidem. She continues to insist that she took 90 tablets of lorazepam in 4 days prior to presentation, even though her drug screen was negative on admission. Interestingly, reviewed her drug screen from her emergency room visit 10/10/2017, which was also negative for all substances, although she reported overdosing on 2 weeks worth of Lorazepam (which would be 42 mg) and heroin the day prior. It is possible that she is lying about her substance abuse as well, and could be diverting her controlled substances. (3) H/O drug abuse 10/28 Avoid opiates, benzodiazepines given history of abuse. Concern does arise for use of Ambien for sleep. 10/29 Active heroin abuse for several months Brief intervention was offered and accepted. Intervention (if performed) was greater than 5 min in length. Brief interventions include: 1. Assess Readiness to Quit, 2. Advise: Help Patient to Reduce or Abstain from heroin 3. Agree: Set Specific, Feasible Goals , 4. Assist: Anticipate barriers, Problem-Solving Solutions. Social work to 5. Arrange: Referrals to appropriate treatment. Summary of intervention: The patient is in contemplation stage with regards to transtheoretical model of change. She wants port removed but doesn't want D&A counseling or rehab. She lives in an area with ready access to heroin. The patient will be provided with recovery materials to continue to education self on how to cope with their condition without drug and benzo use. 10/31 -she continues to refuse substance abuse treatment, although inpatient rehab is recommended. -GI recommends port removal, to be scheduled on the day of discharge. Discharging her with a port in place would be very dangerous given her repeated injection of heroin into her port, as well as injecting feces in order to make herself septic. -Taper off lorazepam and zolpidem as above. Care coordinated with prescribing physician, Dr. Lee, who will cancel her refills. -Would not recommend she be prescribed any controlled substances, medications that are addictive or abusable, given the high risk of harm. -Consider reporting to 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 -Have consider the need for a CYS report, as the patient states she has unsupervised visitation with her daughter on weekends and Tuesdays. She states that she does not use drugs when she is with her daughter, and does not drive, so her daughter has not been riding with her. We do not have any other information that would indicate the need for a mandated report, and although she reports CYS has been involved in the past, she denies current involvement with them. (4) Factitious disorder 10/31 - Reviewed records from Dr. Lee, and discussed the case with her. Patient sent her an email at the end of September admitting that she had been lying about and exaggerating her symptoms, and injected feces into her port at least twice to make herself ill. She has also told others that she has cancer and is receiving chemo. She was diagnosed with factitious disorder, meets the criteria as she has falsified symptoms, presents herself to others is ill, and does this in the absence of obvious external rewards. -Care coordinated with her cutting and printing machine operator, Dr. Bryant. He received a letter from Dr. Lee so is aware of her new diagnosis. -Staff to determine logistics to be worked out in order to schedule her for same day surgery to have port removed at the time of discharge from the [facility]. 11/01 -Port to be removed by general surgery tomorrow. Again spent an extensive amount of time today discussing the importance of her being honest with her physicians and medical providers, and the need to engage fully in individual therapy to try to change this pattern of behavior. (5) Post Gastric Bypass Syndrome 10/28 - With chronic nausea, post prandial vomiting, electrolyte disturbances.Recommend continuation for the following: repeat K in am 10/29 - K improving, continue supplementation. Patient is requesting Zofran prior to meals, will attempt few doses today pending GI consult, mainly as would recommend port removal, ideally prior to leaving hospital. Would be scheduled for infusions 11/01 if remains hospitalized. (6) Asthma Continue Proventil MDI 2 puffs q 4 hrs prn sob/wheeze and Flovent 2 puff BID SOB/wheeze (7) Hypertension Continue Lisinopril 10 mg daily (8) Seizure disorder 10/28 - Continue Keppra, last episode "few weeks" ago, seizure precautions. 11/01 - attempted to contact Dr. Garcia her outpatient neurologist ([facility]) to clarify her medications and if her license has been medically revoked due to seizures; had to leave message, awaiting return call. (9) Headache Continue Topamax, Maxalt and Tylenol prn migraine. Continue Gabapentin as it helps with neuropathy due to Topamax side effect, and ensure follow up with outpatient neurologist. (10) MRSA 10/28 - Nasal swab today. She will need an additional swab in one week per protocol. 10/31 -MRSA nasal swab on 10/28/2017 negative; second swab ordered for 11/04/2017 per protocol. Discharge / Aftercare Planning Primary Care Physician: Name: MARI-Dr. Harrell Appointment Notes: Sees every 3 months Psychiatrist: Name: Dr. Lee [facility] Date of Appointment: Nov 02, 2017 Time of Appointment: 1:00 p.m. Appointment Notes: [address] [place] [id number] Therapist: Name: Ann arango Manager Business: Name: Kervin Wolf - MH/ID Date of Appointment: Oct 31, 2017 Time of Appointment: 11:00 a.m. Appointment Notes: Sees every Monday at 11 Partial or Psych Rehab: Name: [facility] - Ann Appointment Notes: Sees every Monday Wrapper Selector: Name: Antonia Appointment Notes: Sees 3-4 times per week Specialist: Name: Dr. Annette Ring Other: Name of Appointment #1: [facility] Jamia Barrow Appointment #1 Notes: Sees every week on Fridays Visit Code E&M Code: 18946 Inventory Assets Strengths: daughter, boyfriend Needs: custody siddiqui, health concerns, truthfulness with medical treatment providers, address substance abuse, address safety issues Risk Factors Assessment : Yes /single/: Yes Higher / Fall in social status: No Access to guns: No Health problems: Yes Mental Health Diagnoses: Yes Substance use disorders: Yes Previous attempt: Yes Family history of suicide: Yes Previous psychiatric stay: Yes Hopelessness: Yes Smoker: No Protective Factors Assessment Yarsanism beliefs: Yes : No Responsible for young children: No Employed: No Stable relationships: Yes Supportive family: No Good rapport with provider: Yes Data Vital Signs Last 24 Hrs: Date Time Temp Pulse Resp B/P (MAP) Pulse Ox O2 Delivery O2 Flow Rate FiO2 11/01/17 06:55 36.6 53 16 135/90 66 124/86 Meds Administered Last 24 Hrs: Meds Administered (Past 24Hrs) Medications (Trade) Dose Ordered Sig/Rigo Route Start Time Stop Time Status Last Admin Dose Admin Aripiprazole (Abilify Tab) 10 mg BID PO 10/30/17 09:00 11/28/17 08:59 11/01/17 07:25 10 MG Multivitamins (Flintstones Complete Tab) 1 tab QAM PO 10/31/17 09:00 11/30/17 08:59 11/01/17 07:26 1 TAB Lorazepam (Ativan Tab) 0.5 mg Taper BID PO 10/31/17 22:00 11/04/17 21:59 11/01/17 07:25 0.5 MG
[2017-11-01] MEDS ORDERED: FOSAPREPITANT DIMEGLUMINE 150 MG IV ONE (13:30)
--- NOTE | 2017-11-01 14:13 | Surgery Consultation ---
Consultation Date of Consultation: Nov 01, 2017. Attending Physician: Rebeca Samayoa M.D. Reason for Consultation: Removal of aport History of Present Illness [place] Harris is a 42 year old white female with past psychiatric history of bipolar disorder type I, substance abuse history, and borderline personality disorder traits, and newly diagnosed factitious disorder who was admitted [facility] voluntary commitment on 10/28/17 after being brought in to the emergency department following a [facility] crisis consult in which she voiced recent suicidal thoughts and abusing heroine and Ativan. Has left subclavian aport catheter for weekly Emend injections for chronic nausea, vomiting, and dysmotility. Complex abdominal history dating back to [facility] in 2008 complicated by revision, bile leak, cholecystectomy, small bowel perforation s/p resection, panniculectomy and hernia repair, post op wound abscess requiring I&D, omental infraction in 2013, lysis of adhesions in 2014. Persistent symptoms despite Senna, Amitiza, Linzess, Neurontin, Xifaxan, Scopolamine, Dicyclomine, Levsin, Cipro, enemas. She states she believes she has had the port for the past 2 years. Our services consulted for removal of aport as patient has stated she used aport for heroin injections and injection of feces. History of suicidal ideation w/ numerous previous overdose attempts. Gastroenterology has seen patient in consultation and believe removal of aport is the best for patient's safety. Past Medical/Surgical History Medical Problems: (1) Abdominal pain Status: Acute (2) Abdominal pain Status: Acute (3) Abdominal pain Status: Acute (4) Acute gastroenteritis Status: Acute (5) Anemia Status: Acute (6) Back pain Status: Acute (7) Chest pain Status: Acute (8) Dehydration Status: Acute (9) Depression Status: Acute (10) Diarrhea Status: Acute (11) Diffuse abdominal pain Status: Acute (12) Drug abuse and dependence Status: Acute (13) Fecal impaction in rectum Status: Acute (14) Fecal retention Status: Acute (15) Flu-like symptoms Status: Acute (16) Generalized abdominal pain Status: Acute (17) Heroin abuse Status: Acute (18) Hypoglycemia Status: Acute (19) Hypokalemia Status: Acute (20) Ileus Status: Acute (21) Influenza-like symptoms Status: Acute (22) Intractable nausea and vomiting Status: Acute (23) Low back pain Status: Acute (24) Medical non-compliance Status: Acute (25) Nausea and vomiting Status: Acute (26) Nausea, vomiting, and diarrhea Status: Acute (27) Nausea, vomiting, and diarrhea Status: Acute (28) Nausea, vomiting, and diarrhea Status: Acute (29) Noncompliance with medication regimen Status: Acute (30) Palpitations Status: Acute (31) Post-operative pain Status: Acute (32) Precordial chest pain Status: Acute (33) Rash and nonspecific skin eruption Status: Acute (34) Reaction to insect bite Status: Acute (35) RLQ abdominal pain Status: Acute (36) Seizure Status: Acute (37) Seizure Status: Acute (38) SOB (shortness of breath) on exertion Status: Acute (39) Substernal chest pain Status: Acute (40) Substernal chest pain Status: Acute (41) Suicidal ideation Status: Acute (42) Swelling of lower extremity Status: Acute (43) Syncope Status: Acute (44) Syncope Status: Acute (45) Upper abdominal pain Status: Acute (46) Urinary tract infection Status: Acute (47) Vomiting and diarrhea Status: Acute Social History Problems: (1) Anemia Status: Acute (2) Anisocoria Status: Acute (3) Bowel obstruction Status: Acute (4) Constipation Status: Acute (5) Dehydration Status: Acute (6) Diarrhea Status: Acute (7) Diffuse abdominal pain Status: Acute (8) Encounter for wound re-check Status: Acute (9) Epigastric abdominal pain Status: Acute (10) Gastroesophageal reflux disease Status: Chronic (11) Hyperlipidemia Status: Chronic (12) Hypokalemia Status: Acute (13) Ileus Status: Acute (14) Left wrist pain Status: Acute (15) Nausea, vomiting and diarrhea Status: Acute (16) Partial small bowel obstruction Status: Acute (17) Syncope Status: Acute (18) Vomiting Status: Acute (19) Vomiting Status: Acute (20) Wrist pain Status: Acute Family History Cancer MOTHER (lung) Diabetes mellitus FATHER FH: gallbladder disease FH: lung disease FHx: heart disease FATHER Hypertension MOTHER Stroke FATHER Social History Smoking Status: Unknown if Ever Smoked Drug Use: none Marital Status: , in relationship Housing Status: lives with significant other Occupation Status: employed Allergies Coded Allergies: Morphine (Verified Allergy, Severe, TONGUE SWELLING, difficulty breathing/ wheezing, 4/6/18) tolerates hydromorphone Colestipol (Verified Allergy, Intermediate, red rash (no itching), 10/27/17) Cat Dander (Verified Allergy, Unknown, ITCHY WATERY EYES , 10/27/17) NUTS (Verified Allergy, Unknown, skin test showed nut allergy, 10/27/17) per pt, eats peanuts without issue Scopolamine (Verified Adverse Reaction, Severe, Seizure, 10/27/17) SEIZURES ONLY WHEN COMBINED W/ WELLBUTRIN. Promethazine (Verified Adverse Reaction, Intermediate, "CAN'T SIT STILL", 10/27/17) Bupropion (Verified Adverse Reaction, Unknown, Seizure, 10/27/17) SEIZURES WHEN WELLBUTRIN IS COMBINED W/ SCOPALAMINE. Home Medications Scheduled Aripiprazole (Abilify), 20 MG PO HS Cholecalciferol (Vitamin D3), 1 TAB PO DAILY Copper Gluconate (Copper), 3 MG PO DAILY Cyanocobalamin (Cyanocobalamin), 1,000 MCG IM Q3 MONTHS Ergocalciferol (Vitamin D [address]362 Unit), 1 CAP PO WK Fluticasone Propionate (Flovent Hfa), 2 PUFFS INH BID Fosaprepitant Dimeglumine (Emend), 75 MG IV WK Gabapentin (Neurontin), 300 MG PO TID Iron Sucrose (Venofer), 200 MG IV DIRECTED Levetiracetam (Keppra), 1,000 MG PO BID Lisinopril (Zestril), 10 MG PO DAILY Mirtazapine (Remeron), 15 MG PO HS Pediatric Multiple Vitamin W/ (Flintstones Gummies), 1 TAB PO BID Potassium Chloride Microencaps (Potassium Chloride Er), 20 MEQ PO DAILY Sertraline Hcl (Zoloft), 50 MG PO DAILY Thiamine Hcl (Vitamin B-1), 50 MG PO DAILY Topiramate (Topamax), 150 MG PO BID Zinc (Zinc), 50 MG PO DAILY Zolpidem Tartrate (Zolpidem Tartrate), 10 MG PO HS [Adek], 1 TAB PO DAILY AT NOON Scheduled PRN Acetaminophen (Tylenol), 1,000 MG PO Q6H PRN for Pain Albuterol Sulfate (Proventil Hfa), 2 PUFFS INH Q4H PRN for SOB/Wheezing Lorazepam (Ativan), 1 MG PO TID PRN for Anxiety/Agitation Ondansetron (Ondansetron Odt), 4 MG PO Q8 PRN for Nausea Polyethylene Glycol 3350 (Miralax), 17 GM PO DAILY PRN for Constipation Rizatriptan Benzoate (Maxalt), 10 MG PO UD PRN for Migraine Triamcinolone Acet (Aristocort 0.1%), 1 APPLN TOP BID PRN for Itching Valacyclovir (Valtrex), 500 MG PO BID PRN for Outbreaks Current Inpatient Medications Current Inpatient Medications Medications (Trade) Dose Ordered Sig/Rigo Route Start Time Stop Time Status Last Admin Dose Admin Acetaminophen (Tylenol Tab) 650 mg Q4H PRN PO 10/28/17 13:30 11/27/17 13:29 11/01/17 02:35 650 MG Bismuth Subsalicylate (Kaopectate Liqd) 15 ml PRN PRN PO 10/28/17 13:30 11/27/17 13:29 Al Hydroxide/Mg Hydroxide (Maalox Susp) 30 ml Q4H PRN PO 10/28/17 13:30 11/27/17 13:29 Magnesium Hydroxide (Milk Of Magnesia Susp) 30 ml DAILY PRN PO 10/28/17 13:30 11/27/17 13:29 Sodium Chloride ([place] Nasal [place]) PRN PRN NA 10/28/17 13:30 11/27/17 13:29 Hydroxyzine HCl (Vistaril Tab) 50 mg HSZ PRN PO 10/28/17 13:30 11/27/17 13:29 Hydroxyzine HCl (Vistaril Tab) 25 mg Q4H PRN PO 10/28/17 13:30 11/27/17 13:29 10/30/17 19:59 25 MG Albuterol (Ventolin Hfa Inhaler) 2 puffs Q4H PRN INH 10/28/17 13:30 11/27/17 13:29 Cholecalciferol (Vitamin D Tab) 1,000 inter.unit DAILY PO 10/29/17 09:00 11/28/17 08:59 11/01/17 07:27 1,000 INTER.UNIT Fluticasone Propionate (Flovent Hfa 110MCG Inhaler) 2 puffs BID INH 10/28/17 22:00 11/27/17 21:59 11/01/17 07:25 2 PUFFS Gabapentin (Neurontin Cap) 300 mg TID PO 10/28/17 14:00 11/27/17 13:59 11/01/17 13:29 300 MG Levetiracetam (Keppra Tab) 1,000 mg BID PO 10/28/17 22:00 11/27/17 21:59 11/01/17 07:26 1,000 MG Lisinopril (Zestril Tab) 10 mg DAILY PO 10/29/17 09:00 11/28/17 08:59 11/01/17 07:28 10 MG Mirtazapine (Remeron Tab) 15 mg HS PO 10/28/17 22:00 11/27/17 21:59 10/31/17 21:13 15 MG Potassium Chloride (Klor-Con Tab) 20 meq DAILY PO 10/29/17 09:00 11/28/17 08:59 11/01/17 07:26 20 MEQ Rizatriptan Benzoate (Maxalt Tab) 10 mg UD PRN PO 10/28/17 13:30 11/27/17 13:29 10/29/17 04:08 10 MG Thiamine HCl (Vitamin B-1 Tab) 50 mg DAILY PO 10/29/17 09:00 11/28/17 08:59 11/01/17 07:27 50 MG Topiramate (Topamax Tab) 150 mg BID PO 10/28/17 22:00 11/27/17 21:59 11/01/17 07:27 150 MG Triamcinolone Acetonide (Kenalog 0.1% Cream) 1 appln BID PRN EXT 10/28/17 13:30 11/27/17 13:29 Valacyclovir HCl (Valtrex Tab) 500 mg BID PRN PO 10/28/17 13:30 11/07/17 13:29 Miscellaneous Information (Order Awaiting Action) 1 ea DAILY PO 10/29/17 09:00 11/28/17 08:59 Polyethylene (Miralax Powder Packet) 17 gm DAILY PRN PO 10/28/17 13:30 11/27/17 13:29 Miscellaneous Information (Order Awaiting Action) 1 ea DAILY PO 10/29/17 09:00 11/28/17 08:59 Miscellaneous Information (Order Awaiting Action) 1 ea DAILY N/A 10/28/17 18:00 11/27/17 17:59 Aripiprazole (Abilify Tab) 10 mg BID PO 10/30/17 09:00 11/28/17 08:59 11/01/17 07:25 10 MG Sertraline HCl (Zoloft Tab) 50 mg BID PO 10/29/17 22:00 11/28/17 21:59 11/01/17 07:28 50 MG Ondansetron HCl (Zofran Odt) 8 mg TIDM PRN PO 10/29/17 12:15 11/27/17 13:29 10/30/17 16:29 8 MG Multivitamins (Flintstones Complete Tab) 1 tab QAM PO 10/31/17 09:00 11/30/17 08:59 11/01/17 07:26 1 TAB Lorazepam (Ativan Tab) 0.5 mg Taper BID PO 10/31/17 22:00 11/04/17 21:59 11/01/17 07:25 0.5 MG Review of Systems Constitutional: No fever, No chills Respiratory: No shortness of breath Cardiovascular: No chest pain Abdomen: No pain Hematologic / Lymphatic: No abnormal bleeding/bruising Integumentary: No rash Physical Exam Date Time Temp Pulse Resp B/P (MAP) Pulse Ox O2 Delivery O2 Flow Rate FiO2 11/01/17 06:55 36.6 53 16 135/90 66 124/86 General Appearance: WD/WN, no apparent distress Head: normocephalic, atraumatic Eyes: sclerae normal ENT: hearing grossly normal Neck: trachea midline Respiratory/Chest: no respiratory distress, no accessory muscle use, + pertinent finding (left subclavian aport present, no erythema, incisional scar present just above port site) Neurologic/Psych: alert, oriented x 3 Skin: normal color, warm/dry, no rash Assessment & Plan 42 year-old female with bipolar disorder, personality disorder, and factitious disorder admitted to behavioral health unit for suicidal ideation and currently is on suicidal precaution. History of drug use and abuse including Heroin and Ativan (Per patient has attempted overdose of Ativan on multiple occasions). Using aport for Heroin injection as well as injection of feces. Aport for weekly Emend injections for chronic nausea, vomiting, and dysmotility Plan: Plan for removal of aport tomorrow by Dr. Martínez NPO after midnight Continue current management Patient able to sign consent for herself and wishes to have port removed so she does not use it for drugs and self harm. Will obtain consent prior to OR tomorrow. DR. Martínez has seen and examined patient, agrees with above.
--- NOTE | 2017-11-01 17:23 | Anesthesiology Progress Note ---
Anesthesia Progress Note Date of Service Nov 01, 2017. Progress Notes Pt seen and evaluated. Acceptable risk for anesthesia tomorrow. consent signed.
[2017-11-01] MEDS: MIRTAZAPINE TAB 15 MG TAB PO SCH (21:06)
[2017-11-02 06:44] VITALS: BP_SYST 102; BP_SYST 125; BP_DIAS 67; BP_DIAS 80; PULSE 51; PULSE 76; TEMP 36.4
[2017-11-02] MEDS: FLUTICASONE HFA 110MCG INHALER INH SCH ×3 (08:57→20:41)
[2017-11-02] MEDS: LORAZEPAM 0.5 MG TAB PO SCH (08:59)
[2017-11-02] MEDS: ARIPIprazole TAB 10 MG TAB PO SCH ×3 (08:59→20:41)
[2017-11-02] MEDS: FLINTSTONES COMPLETE CHEWABLE TAB PO SCH ×2 (08:59→13:07)
[2017-11-02] MEDS: POTASSIUM CHLORIDE 20 MEQ TABCR PO SCH ×2 (09:00→13:08)
[2017-11-02] MEDS: TOPIRAMATE 50 MG TAB PO SCH ×3 (09:00→20:42)
[2017-11-02] MEDS: SERTRALINE HCL 100 MG TAB PO SCH ×3 (09:00→20:42)
[2017-11-02] MEDS: LISINOPRIL 10 MG TAB PO SCH (09:00)
[2017-11-02] MEDS: LEVETIRACETAM 500 MG TAB PO SCH ×3 (09:00→20:41)
[2017-11-02] MEDS: GABAPENTIN 300 MG CAP PO SCH ×3 (09:00→20:42)
[2017-11-02] MEDS: THIAMINE HCL 50 MG TAB PO SCH ×2 (09:00→13:08)
[2017-11-02] MEDS: CHOLECALCIFEROL 1000 INTER.UNIT TAB PO SCH ×2 (09:00→13:09)
[2017-11-02] MEDS ORDERED: BACITRACIN OINT 15 GM TUBE ONE (10:24)
[2017-11-02] MEDS ORDERED: BUPIVACAINE 0.5 % 5 MG/1 ML MPF 30ML VIAL ONE (10:24)
[2017-11-02] MEDS ORDERED: LIDOCAINE HCL 1% 20 ML VIAL ONE (10:24)
[2017-11-02] MEDS ORDERED: FENTANYL CITRATE INJ 50 MCG/1 ML 2 ML VIAL ONE (10:36)
[2017-11-02] MEDS ORDERED: MIDAZOLAM HCL 1 MG/ML 2ML VIAL ONE (10:36)
[2017-11-02] MEDS ORDERED: CEFAZOLIN SOD 2000MG/15 ML IV PUSH IV ONE (10:37)
[2017-11-02] MEDS ORDERED: ONDANSETRON INJ 2 MG/ML 2 ML VIAL ONE (11:22)
[2017-11-02] MEDS ORDERED: PROPOFOL IV EMULSION 10 MG/ML 20 ML VIAL IV ONE (11:22)
[2017-11-02] MEDS ORDERED: SODIUM CHLORIDE 0.9% 1000ML 1,000 ML IV SCH (11:28)
--- NOTE | 2017-11-02 11:28 | [facility] Post Operative Brief Note ---
Immediate Operative Summary Operative Date Nov 02, 2017. Pre-Operative Diagnosis Infusaport no longer needed Post-Operative Diagnosis Same Procedure(s) Performed Infusaport Removal Surgeon Dr Martínez Quality Assurance Qa Lab Analyst Surgeon(s) None Estimated Blood Loss 5ML Findings Consistent with Post-Op Diagnosis Fluids (cc crystalloids) 300ml Specimens None Drains None Anesthesia Type MAC Complication(s) none Disposition Accompanied Pt To Recover: yes Disposition: Recovery Room / PACU
[2017-11-02] MEDS ORDERED: IBUPROFEN 600 MG TAB PO PRN (11:30)
--- NOTE | 2017-11-02 11:32 | Discharge Instructions ---
Discharge Instructions Date of Service Nov 02, 2017. Visit Reason for Visit: Dx Bipolar I Discharge Discharge Diagnosis / Problem: S/P removal A-port Discharge Goals Goal(s): Decrease discomfort, Improve function Activity Recommendations Activity Limitations: resume your previous activity Exercise/Sports Limitations: rest today May Resume Sexual Activity: when tolerated Shower/Bathe: may shower/bathe in 3 days Driving or Machine Use: resume 3 days after discharge Anesthesia . Post Anesthesia Instructions: If you have had General Anesthesia or IV Sedation: * Do not drive today. * Resume driving when surgeon permits. * Do not make important decisions or sign legal documents today. * Call surgeon for: 1. Temperature elevations greater than 101 degrees F. 2. Uncontrollable pain. 3. Excessive bleeding. 4. Persistent nausea and vomiting. 5. Medication intolerance (nausea, vomiting or rash). * For nausea and vomiting use only clear liquids such as: tea, soda, bouillon until nausea subsides, then gradually increase diet as tolerated. * If you have any concerns or questions, call your surgeon's office. If physician is unavailable and it is an emergency, call 911 or go to the nearest emergency room. . Instructions / Follow-Up Instructions / Follow-Up keep norberto dressing on for 4 days, she can take a shower on 11/06/2017, Follow up Dr. Martínez as need, Diet Recommendations Recommended Home Diet: resume previous diet Procedures Procedures Performed: Infusaport Removal Pending Studies Studies pending at discharge: no Medical Emergencies . Who to Call and When: Medical Emergencies: If at any time you feel your situation is an emergency, please call 911 immediately. . Non-Emergent Contact Non-Emergency issues call your: Primary Care Provider Call Non-Emergent contact if: you have a fever, temperature is above 100.5, your pain is not controlled, your pain is worsening, wound has increased drainage, wound has increased redness . . "Provider Documentation" section prepared by Kimberly Martínez. . [place] Drug Monitoring Program Search Results: patient reviewed within database
[2017-11-02] MEDS ORDERED: EpHEDrine SULFATE INJ 50 MG/ML AMP IV PRN (11:45)
--- NOTE | 2017-11-02 11:45 | Anesthesiology Progress Note ---
Anesthesia Post Op Note Date & Time Nov 02, 2017 at 11:44 Vital Signs Pain Intensity: 0 Vital Signs Past 12 Hours Date Time Temp Pulse Resp B/P (MAP) Pulse Ox O2 Delivery O2 Flow Rate FiO2 11/02/17 11:35 53 12 112/69 98 Room Air 11/02/17 11:29 36.2 63 12 117/71 98 Room Air 11/02/17 06:44 36.4 51 20 102/67 76 125/80 Notes Mental Status: alert / awake / arousable, participated in evaluation Pt Amnestic to Procedure: Yes Nausea / Vomiting: adequately controlled Pain: adequately controlled Airway Patency, RR, SpO2: stable & adequate BP & HR: stable & adequate Hydration State: stable & adequate Anesthetic Complications: no major complications apparent
[2017-11-02 11:55] VITALS: O2SAT 100
--- NOTE | 2017-11-02 12:24 | OPERATIVE REPORT ---
DATE OF OPERATION: 11/02/2017 PREOPERATIVE DIAGNOSIS. The patient did not need A-port anymore. POSTOPERATIVE DIAGNOSIS: The patient did not need A-port anymore. OPERATION: Removal of A-port catheter on the left upper chest. SURGEON: Dr. Mauricio Harris ANESTHESIA: Conscious sedation plus local. ESTIMATED BLOOD LOSS: About 5 mL. FINDINGS: Normal finding of the A-port catheter. COMPLICATIONS: None. INDICATIONS FOR THE PROCEDURE: This is a 42 years old female who had an A-port placed about 2 years ago and the patient used the A-port for illegal drug use and abused the A-port and the patient requires and also the patient's daughter requires removal of the A-port catheter. I did talk to the patient about the benefits, risks, and alternates to the procedure. I indicated the risks may include but not limited such as bleeding, infection, blood clot. The patient understands. She signed the informed consent. I answered all questions. DETAILS OF PROCEDURE: We brought the patient to the OR, put the patient in the supine position. The patient received SCD on bilateral legs to prevent DVT. Also, the patient received 2 g Ancef IV for prophylactic antibiotic. The patient received conscious sedation by the anesthesiology. The left side of the upper chest was appropriately draped in routine sterile fashion. After time-out, I injected the local anesthesia by using 1% lidocaine mixed with 0.5% Marcaine around the A-port location. Then I made an incision and completely removed the A-port deep to the subcutaneous layer without difficulty. Hemostasis was obtained. Then I used 2-0 Vicryl to close the subcutaneous layer continuous running, closed the skin by using 4-0 Vicryl continuous running. Then we put a dressing on. The patient tolerated the procedure well. All instrument, needle, and sponge count were correct x2 at the end of the case. The patient was transferred to recovery room in stable condition. After the procedure, I also gave the patient postop care instructions. The patient understands. I attest to the content of the Intraoperative Record and any orders documented therein. Any exception s are noted below.
[2017-11-02 12:35] VITALS: BP 139/82; PULSE 47; TEMP 36.4; O2SAT 100
--- NOTE | 2017-11-02 13:04 | Psychiatric Progress Notes ---
Progress Note Date of Service Nov 02, 2017. Interval History Jamaica Harris is a 42 year old white female who currently lives in [place], [place] with a past psychiatric history of bipolar disorder type I, substance abuse history and borderline personality disorder traits who was admitted 201 voluntary commitment on 10/28/17 after being brought in to the emergency department following a CANHELP crisis consult in which she voiced recent suicidal thoughts and abusing heroine and Ativan in the context of ongoing psychosocial stressors. Chief Complaint "Good, just thinking about the surgery ". Subjective Patient was seen & assessed interval progress reviewed with Nursing. Staff report she has been attending groups and participating, and spends her free time watching TV with peers. She is eating well, but was n.p.o. this morning for her surgical procedure. Her port removal was completed without complication. Today, she reports that her mood is "good," feels relieved that her port has been removed, and is hoping to be able to be discharged tomorrow so that she can see her daughter over the weekend. She continues to refuse substance abuse treatment, and states that she thinks she will be able to abstain from heroin use after discharge as she does not have any money right now. She notes that her usual pattern is to use when she gets her disability check on the 3rd of the month, stating the day her check comes is the hardest day for her, because she is also responsible for paying all of her bills, which she finds stressful. She is thinking that she could ask her boyfriend to help with process, but continues to refuse to allow staff to speak with him, saying that "he does not believe in psychiatry stuff." Reframed this as not necessarily a meeting to talk about her psychiatric issues or treatment, but rather about practical approaches to help support her and safety concerns, but she continues to refuse contact with him. She states that she has been talking to him by phone each evening, and they update each other about their days. She denies suicidal thoughts, and states she is working on "how to manage the stress of going back to life." Sleep Information Total Hours of Sleep: 8.00 Meal Information Percent of Breakfast Consumed: 0 Percent of Lunch Consumed: 75 Percent of Dinner Consumed: 100 Mental Status Exam During interview pt is: alert and oriented, cooperative Appearance: appropriately dressed, appropriately groomed (Obese, dressed in sweatpants and sweatshirt, with arms crossed tightly across her chest, head shaved, wearing glasses) Eye contact is: good Motor behavior is: steady gait & station, no abnormal motor movements Speech: normal in rate, rhythm & volume Affect: blunted (Appears somewhat sedated) Mood is: other ("Good") Thought process: goal directed Thought content: cognitive distortions Suicidal thought are: denied Homicidal thoughts are: denied Hallucinations: denies auditory, denies visual Cognition: memory grossly intact, attention grossly intact, language grossly intact Intelligence estimated to be: consistent with level of education Insight: poor Judgement: poor Impression Mood has improved, and port was removed today, which will decrease her risk of heroin overdose/continued self-induced sepsis/self-harm. She has demonstrated an ability to give or withhold information as well, and clearly meets criteria for factitious disorder. We have worked to mitigate his many risk factors as possible, by having her boyfriend bring in her home medications (although all controlled substances were conspicuously missing), having her port removed, coordinating care with her other providers, tapering her off controlled substances, and exploring her substance abuse while recommending treatment, which unfortunately she is refusing. She is also refusing any kind of a family meeting, but did agree to outpatient therapy referral. She is reporting improved mood, and is hopeful for discharge tomorrow so that she can see her daughter over the weekend. For now, she continues to require inpatient treatment due to the severity of her symptoms and high risk for self harm/ suicide if discharged prematurely. Plan (1) Bipolar I disorder 10/28--The patient is admitted to [facility] ([facility] unit) on q 15 min checks (behavioral with suicide precautions) for safety. The patient will participate in group, recreational and milieu therapies and will be offered additional individual and family sessions as clinically appropriate. Recommend family meeting with her Boyfriend Patient is presenting as depressed. Denies mood swings, connor or hypomania. Continue Ariprazole 20 mg po q day, Sertraline 100mg q day Remeron and Ambien for sleep. 10/29--will split dose Abilify starting tomorrow. Patient expressed interested in injectable med, reviewed that insurance may consider regardless of dx given her GI issues but cannot determine today. Hospital doesn't carry Remeron jaime tab but may also be better absorbed as outpatient. Reviewed plan to taper Ambien in preparation for d/c. 10/30 - continue current medications. - Discussed [facility] infusion with nursing who will review coverage for the date and determine availability to transport patient to appointment. Aware of need to reschedule if staff is unavailable to transport patient. - GI consult reviewed - appreciate recommendations made - continue to encourage participation in group programming 10/31 -Discontinue zolpidem due to substance abuse, recent overdose on it, and high risk of harm to self if she has access to this type of medication. -Continue sertraline 50 mg twice daily, aripiprazole 10 mg twice daily, and mirtazapine 15 mg nightly. -Care coordinated with Dr. Lee. Refer for outpatient therapy through the [facility] psych clinic. -Meeting held with Kervin, but patient continues to refuse treatment recommendations, including a family meeting, substance abuse treatment, and is not being forthcoming with staff. 11/01 -Refer to the [facility] for individual therapy. -Continue to encourage family meeting with her boyfriend, which she is still refusing. -Continue to encourage honesty in treatment. 11/02 -Working on safety plan; encouraged patient to involve boyfriend in managing finances, as she notes stress when she receives her disability check at the beginning of the month and has to pay her bills, and states this is her highest risk time for heroin use. (2) Benzodiazepine abuse 10/28 received 2 mg total of Ativan yesterday. 10/29 Ativan 0.5 mg TID today with plan for further taper as tolerated. BP is better this am than yesterday pm. PDMP database query confirmed that filling 90 tabs of Ativan monthly for past 6 months. Last fill of #90 pills on 10/23 ( NEED TO CONFIRM location of supply). Reviewed risks of respiratory depression with opiates can result in . 10/31 -decrease Lorazepam to 0.5 mg twice daily 2 days, then 0.5 mg nightly 2 days, then discontinue. Coordinated care with Dr. Lee, reviewed recent emergency room visit for heroin, lorazepam, and Ambien overdose, as well as continued abuse of Lorazepam, taking 40 mg over a 4 day period prior to this admission. Has also been mixing these medications with heroin, clear risk for severe drug drug interactions and , would not recommend she be prescribed any controlled substances, or medications that are addictive or abusable. -Dr. Lee is going to discontinue her refills of zolpidem and Lorazepam. -Recommend that somebody bring in her home supply of Lorazepam so that it can be destroyed. She filled 90 tablets on 10/23/2017 just prior to admission, and reported taking about 40 of them over a 4 day period, so should still have around 50 tablets left. She told ER staff that she had taken 64 tablets in the 4 day period prior to admission, and [facility] staff reported she told them she had a stash of 20 Ativan tablets. She is refusing contact with her boyfriend, and today is stating that she took all 90 tablets of lorazepam over the 4 days prior to admission and that they are gone. This is highly unlikely, and given the severity of the safety concerns, we will continue efforts to recover these medications and dispose of them safely. 11/01 -boyfriend brought in home medications, and there is no Lorazepam or zolpidem. She continues to insist that she took 90 tablets of lorazepam in 4 days prior to presentation, even though her drug screen was negative on admission. Interestingly, reviewed her drug screen from her emergency room visit 10/10/2017, which was also negative for all substances, although she reported overdosing on 2 weeks worth of Lorazepam (which would be 42 mg) and heroin the day prior. It is possible that she is lying about her substance abuse as well, and could be diverting her controlled substances. 11/02 -patient continues to appear sedated and slowed on the unit; will discontinue Lorazepam in preparation for likely discharge tomorrow. Zolpidem has also been discontinued. Boyfriend was not able to find any Lorazepam or zolpidem in the home. (3) H/O drug abuse 10/28 Avoid opiates, benzodiazepines given history of abuse. Concern does arise for use of Ambien for sleep. 10/29 Active heroin abuse for several months Brief intervention was offered and accepted. Intervention (if performed) was greater than 5 min in length. Brief interventions include: 1. Assess Readiness to Quit, 2. Advise: Help Patient to Reduce or Abstain from heroin 3. Agree: Set Specific, Feasible Goals , 4. Assist: Anticipate barriers, Problem-Solving Solutions. Social work to 5. Arrange: Referrals to appropriate treatment. Summary of intervention: The patient is in contemplation stage with regards to transtheoretical model of change. She wants port removed but doesn't want D&A counseling or rehab. She lives in an area with ready access to heroin. The patient will be provided with recovery materials to continue to education self on how to cope with their condition without drug and benzo use. 10/31 -she continues to refuse substance abuse treatment, although inpatient rehab is recommended. -GI recommends port removal, to be scheduled on the day of discharge. Discharging her with a port in place would be very dangerous given her repeated injection of heroin into her port, as well as injecting feces in order to make herself septic. -Taper off lorazepam and zolpidem as above. Care coordinated with prescribing physician, Dr. Lee, who will cancel her refills. -Would not recommend she be prescribed any controlled substances, medications that are addictive or abusable, given the high risk of harm. 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 -Have consider the need for a CYS report, as the patient states she has unsupervised visitation with her daughter on weekends and Tuesdays. She states that she does not use drugs when she is with her daughter, and does not drive, so her daughter has not been riding with her. We do not have any other information that would indicate the need for a mandated report, and although she reports CYS has been involved in the past, she denies current involvement with them. (4) Factitious disorder 10/31 - Reviewed records from Dr. Lee, and discussed the case with her. Patient sent her an email at the end of September admitting that she had been lying about and exaggerating her symptoms, and injected feces into her port at least twice to make herself ill. She has also told others that she has cancer and is receiving chemo. She was diagnosed with factitious disorder, meets the criteria as she has falsified symptoms, presents herself to others is ill, and does this in the absence of obvious external rewards. -Care coordinated with her records coordinator, Dr. Bryant. He received a letter from Dr. Lee so is aware of her new diagnosis. -Staff to determine logistics to be worked out in order to schedule her for same day surgery to have port removed at the time of discharge from the [facility]. 11/01 -Port to be removed by general surgery tomorrow. Again spent an extensive amount of time today discussing the importance of her being honest with her physicians and medical providers, and the need to engage fully in individual therapy to try to change this pattern of behavior. (5) Post Gastric Bypass Syndrome 10/28 - With chronic nausea, post prandial vomiting, electrolyte disturbances.Recommend continuation for the following: repeat K in am 10/29 - K improving, continue supplementation. Patient is requesting Zofran prior to meals, will attempt few doses today pending GI consult, mainly as would recommend port removal, ideally prior to leaving hospital. Would be scheduled for infusions 11/01 if remains hospitalized. (6) Asthma Continue Proventil MDI 2 puffs q 4 hrs prn sob/wheeze and Flovent 2 puff BID SOB/wheeze (7) Hypertension Continue Lisinopril 10 mg daily (8) Seizure disorder 10/28 - Continue Keppra, last episode "few weeks" ago, seizure precautions. 11/01 - attempted to contact Dr. Garcia her outpatient neurologist ([facility]) to clarify her medications and if her license has been medically revoked due to seizures; had to leave message, awaiting return call. (9) Headache Continue Topamax, Maxalt and Tylenol prn migraine. Continue Gabapentin as it helps with neuropathy due to Topamax side effect, and ensure follow up with outpatient neurologist. (10) MRSA 10/28 - Nasal swab today. She will need an additional swab in one week per protocol. 10/31 -MRSA nasal swab on 10/28/2017 negative; second swab ordered for 11/04/2017 per protocol. Discharge / Aftercare Planning Primary Care Physician: Name: MARI-Dr. Harrell Appointment Notes: Sees every 3 months Psychiatrist: Name: Dr. Lee [facility] Date of Appointment: Nov 02, 2017 Time of Appointment: 1:00 p.m. Appointment Notes: [address] [place] [id number] Therapist: Name: Ann arango Sales Agent Protective Service: Name: Kervin Wolf - MH/ID Date of Appointment: Oct 31, 2017 Time of Appointment: 11:00 a.m. Appointment Notes: Sees every Monday at 11 Partial or Psych Rehab: Name: [facility] Skills - Ann Appointment Notes: Sees every Monday Splicer Machine Operator: Name: Antonia Appointment Notes: Sees 3-4 times per week Neurologist: Name: Dr. Dumont Specialist: Name: Dr. Annette Ring Other: Name of Appointment #1: [facility] - Jamia Barrow Appointment #1 Notes: Sees every week on Fridays Visit Code E&M Code: 43386 Inventory Assets Strengths: daughter, boyfriend Needs: custody siddiqui, health concerns, truthfulness with medical treatment providers, address substance abuse, address safety issues Risk Factors Assessment : Yes /single/: Yes Higher / Fall in social status: No Access to guns: No Health problems: Yes Mental Health Diagnoses: Yes Substance use disorders: Yes Previous attempt: Yes Family history of suicide: Yes Previous psychiatric stay: Yes Hopelessness: Yes Smoker: No Protective Factors Assessment Pentecostalism beliefs: Yes : No Responsible for young children: No Employed: No Stable relationships: Yes Supportive family: No Good rapport with provider: Yes Data Vital Signs Last 24 Hrs: Date Time Temp Pulse Resp B/P (MAP) Pulse Ox O2 Delivery O2 Flow Rate FiO2 11/02/17 12:35 36.4 47 16 139/82 11/02/17 11:55 52 16 120/76 100 Room Air 11/02/17 11:45 37.0 50 15 119/71 99 Room Air 11/02/17 11:35 53 12 112/69 98 Room Air 11/02/17 11:29 36.2 63 12 117/71 98 Room Air 11/02/17 06:44 36.4 51 20 102/67 76 125/80 Meds Administered Last 24 Hrs: Meds Administered (Past 24Hrs) Medications (Trade) Dose Ordered Sig/Rigo Route Start Time Stop Time Status Last Admin Dose Admin Lorazepam (Ativan Tab) 0.5 mg Taper BID PO 10/31/17 22:00 11/04/17 21:59 11/01/17 21:05 0.5 MG
[2017-11-02] MEDS: ACETAMINOPHEN 325 MG TAB PO PRN ×2 (13:18→20:44)
[2017-11-02 15:49] VITALS: BP 147/87; PULSE 56
[2017-11-02] MEDS: MIRTAZAPINE TAB 15 MG TAB PO SCH (20:42)
[2017-11-03] MEDS: ACETAMINOPHEN 325 MG TAB PO PRN ×2 (03:42→14:16)
[2017-11-03] MEDS ORDERED: CEFAZOLIN SOD 2000MG/15 ML IV PUSH IV ONE (06:00)
[2017-11-03 06:31] VITALS: BP_SYST 103; BP_SYST 123; BP_DIAS 69; BP_DIAS 85; PULSE 53; PULSE 69; TEMP 36.2
[2017-11-03] MEDS: LISINOPRIL 10 MG TAB PO SCH (07:47)
[2017-11-03] MEDS: FLUTICASONE HFA 110MCG INHALER INH SCH (07:47)
[2017-11-03] MEDS: ARIPIprazole TAB 10 MG TAB PO SCH (07:48)
[2017-11-03] MEDS: POTASSIUM CHLORIDE 20 MEQ TABCR PO SCH (07:48)
[2017-11-03] MEDS: TOPIRAMATE 50 MG TAB PO SCH (07:48)
[2017-11-03] MEDS: THIAMINE HCL 50 MG TAB PO SCH (07:48)
[2017-11-03] MEDS: FLINTSTONES COMPLETE CHEWABLE TAB PO SCH (07:48)
[2017-11-03] MEDS: CHOLECALCIFEROL 1000 INTER.UNIT TAB PO SCH (07:48)
[2017-11-03] MEDS: GABAPENTIN 300 MG CAP PO SCH ×2 (07:48→14:15)
[2017-11-03] MEDS: SERTRALINE HCL 100 MG TAB PO SCH (07:50)
[2017-11-03] MEDS: LEVETIRACETAM 500 MG TAB PO SCH (07:51)
[2017-11-03] MEDS ORDERED: ABL10 PO (09:10)
[2017-11-03] MEDS ORDERED: ZLF/100 PO (09:10)
[2017-11-03] MEDS ORDERED: RMR15 PO (09:10)
--- NOTE | 2017-11-03 09:39 | Discharge Instructions ---
Discharge Information Report Includes Report will include the: Discharge Instructions & Summary Admission Admission Date / Time: Oct 28, 2017 at 12:32 Reason for Admission: Dx Bipolar I Discharge Discharge Diagnosis / Problem: Bipolar I disorder Condition at Discharge: Fair Discharge Goals Goal(s): Improve function, Increase independence, Learn about illness, Therapeutic intervention, Prevent Disease Progression Activity Recommendations Activity Limitations: per Instructions/Follow-up section Lifting Limitations: gradually increase as tolerated Exercise/Sports Limitations: as tolerated May Resume Sexual Activity: when tolerated Shower/Bathe: may shower/bathe in 3 days Driving or Machine Use: resume 3 days after discharge . Instructions / Follow-Up Instructions / Follow-Up . SPECIAL CARE INSTRUCTIONS: 1. Follow through with your scheduled aftercare appointments. If unable to keep an appointment, please call to reschedule. 2. Take your medication only as prescribed. Medication should not be changed or stopped without the approval of your doctor. In the event of worsening symptoms or concerns about side effects, contact your doctor immediately. 3. Utilize new healthy coping skills, anger management skills, and stress management skills learned during your hospitalization. Journal feelings and process them with a support person. Identify stressors or situations that may result in relapse, deterioration or inappropriate behaviors and develop a plan to deal with those issues. 4. If your coping skills are ineffective and you are in crisis, contact your outpatient providers for direction. If unable to reach your providers, please call the CAN HELP LINE AT or go to the closest Emergency Room. 5. Avoid alcohol and un-prescribed drugs. 6. You have been provided with the Mental Health Advance Directives Pamphlet for your review. AFTERCARE APPOINTMENTS: * Please call your insurance company prior to your scheduled appointment to confirm your aftercare providers are covered. Take your insurance information to your appointments. . Discharge / Aftercare Planning Primary Care Physician: Name: MARI-Dr. Harrell Date of Appointment: Nov 17, 2017 Time of Appointment: 11:20 am Appointment Notes: Sees every 3 months Psychiatrist: Name: Dr. Lee Davenport [facility] Date of Appointment: Nov 02, 2017 Appointment Notes: [address] [place] [address], [place] [address] [employer]: Name: Kervin COLEMAN/ID Date of Appointment: Nov 07, 2017 Time of Appointment: 11:00 a.m. Appointment Notes: Sees every Monday at 11 Partial or Psych Rehab: Name: [facility] Date Of Appointment: Nov 03, 2017 Appointment Comments: Sees every Monday Shed Workers Supervisor: Name: Antonia Date of Appointment: Nov 06, 2017 Appointment Notes: Sees 3-4 times per week Neurologist: Name: Dr. Dumont Appointment Notes: appointment to be scheduled as needed Specialist: Name: Dr. Annette Ring Appointment Notes: [address] [place] [id number] Other: Name of Appointment #1: [facility] - [facility] Date of Appointment #1: Nov 03, 2017 Appointment #1 Notes: Sees every week on Fridays . Follow-Up Care Plan for Follow-Up Care: Pt's aftercare was reviewed and updated during his admission to allow for timely followup with psychiatric providers following discharge. Pt will be returning to he current psychiatrist for management of medications as well as mobile psych rehab, case management, and peer support. Current Hospital Diet Patient's current hospital diet: Regular Diet Discharge Diet Recommended Diet: Regular Diet Procedures Procedures Performed: Yes List Procedure(s) Performed: 11/02/17 - Infusaport Removal - (see surgery records) Pending Studies Pending Studies at Discharge: No Medical Emergencies . Who to Call and When: Medical Emergencies: For questions or emergencies related to your hospital stay, please contact the Inpatient Behavioral Health Unit at [phone]. A printing gray cloth tender is on-call 13/02 for the Behavioral Health Unit for emergencies At any time you feel your situation is an emergency, you may also call 911 immediately. . Non-Emergent Contact Non-Emergency issues call your: Primary Care Provider, Psychiatrist, Therapist , [employer] Past History Medical & Surgical History: (1) Post Gastric Bypass Syndrome (2) Asthma (3) Hypertension (4) Headache (5) Seizure disorder Advance Directives Do You Have an Existing Mental: No Existing Living Will: No Existing Power of Corporate Director: No Advance Directives Info Given: To Pt/S.O. Advance Directives Reason: Declines as Mental Health Visit. Discharge Summary Admission HPI Per the Admitting provider: The patient is known to [facility] after multiple hospital admissions, most recently May 2017 for an intentional overdose on multiple prescription medications in the context of receiving a letter stating she would need to register as a sex offender from a juvenile offense history and again in June 2013 for chronic depression and anxiety, thoughts of self harm, abuse of pain medication and medication noncompliance in the context of an ongoing custody siddiqui involving her daughter. Yesterday, the patient was brought into the emergency department for evaluation after she apparently voiced to a visiting home health nurse "if somebody offed me I wouldn't care" which then [facility] in which it was discovered she was voicing thoughts of self harm and also admitted to injection heroin into her port one week ago as well as abusing her Ativan 1mg TID by taking 10 Ativan a day x 4 days. The patient reports injecting heroin into her port a "few times" within the past six months and regularly abusing her Ativan. The patient states she has many issues that she is dealing with that affect her mood. She reports ongoing custody issues with her daughters grandparents, ongoing health concerns and financial issues. Currently, she describes feeling down, depressed and hopeless. She denies mood swings. She is denying SI/HI plan or intent but admits to always feeling she would be better off . She is with low energy, no motivation, poor appetite with cyclical projectile vomiting after eating, poor sleep approximately 2 hours per night in spite of Remeron and Ambien. DFA and REY reported. She desires to sleep but is unable to. She states she is anxious with panic attacks , racing thoughts and ruminations at HS, restlessness and mild irritability. She finds it difficult to focus and concentrate on her hobbies of sewing and reading. She denies A/H hallucinations, connor, hypomania or psychosis symptoms. She reports seeing her psychiatrist Dr. Lee monthly and following weekly with her mobile psych therapist . She follows with her PCP q 3 months. She reports aside from taking the Ativan in excess she is medication compliant. Hospital Course (1) Bipolar I disorder 10/28--The patient is admitted to [facility] ([facility] mental [facility] unit) on q 15 min checks (behavioral with suicide precautions) for safety. The patient will participate in group, recreational and milieu therapies and will be offered additional individual and family sessions as clinically appropriate. Recommend family meeting with her Boyfriend Patient is presenting as depressed. Denies mood swings, connor or hypomania. Continue Ariprazole 20 mg po q day, Sertraline 100mg q day Remeron and Ambien for sleep. 10/29--will split dose Abilify starting tomorrow. Patient expressed interested in injectable med, reviewed that insurance may consider regardless of dx given her GI issues but cannot determine today. Hospital doesn't carry Remeron jaime tab but may also be better absorbed as outpatient. Reviewed plan to taper Ambien in preparation for d/c. 10/30 - continue current medications. - Discussed [facility] infusion with nursing who will review coverage for the date and determine availability to transport patient to appointment. Aware of need to reschedule if staff is unavailable to transport patient. - GI consult reviewed - appreciate recommendations made - continue to encourage participation in group programming 10/31 -Discontinue zolpidem due to substance abuse, recent overdose on it, and high risk of harm to self if she has access to this type of medication. -Continue sertraline 50 mg twice daily, aripiprazole 10 mg twice daily, and mirtazapine 15 mg nightly. -Care coordinated with Dr. Lee. Refer for outpatient therapy through the [facility] psych clinic. -Meeting held with Kervin, but patient continues to refuse treatment recommendations, including a family meeting, substance abuse treatment, and is not being forthcoming with staff. 11/01 -Refer to the [facility] psych clinic for individual therapy. -Continue to encourage family meeting with her boyfriend, which she is still refusing. -Continue to encourage honesty in treatment. 11/02 -Working on safety plan; encouraged patient to involve boyfriend in managing finances, as she notes stress when she receives her disability check at the beginning of the month and has to pay her bills, and states this is her highest risk time for heroin use. (2) Benzodiazepine abuse 10/28 received 2 mg total of Ativan yesterday. 10/29 Ativan 0.5 mg TID today with plan for further taper as tolerated. BP is better this am than yesterday pm. PDMP database query confirmed that filling 90 tabs of Ativan monthly for past 6 months. Last fill of #90 pills on 10/23 ( NEED TO CONFIRM location of supply). Reviewed risks of respiratory depression with opiates can result in . 10/31 -decrease Lorazepam to 0.5 mg twice daily 2 days, then 0.5 mg nightly 2 days, then discontinue. Coordinated care with Dr. Lee, reviewed recent emergency room visit for heroin, lorazepam, and Ambien overdose, as well as continued abuse of Lorazepam, taking 40 mg over a 4 day period prior to this admission. Has also been mixing these medications with heroin, clear risk for severe drug drug interactions and , would not recommend she be prescribed any controlled substances, or medications that are addictive or abusable. -Dr. Lee is going to discontinue her refills of zolpidem and Lorazepam. -Recommend that somebody bring in her home supply of Lorazepam so that it can be destroyed. She filled 90 tablets on 10/23/2017 just prior to admission, and reported taking about 40 of them over a 4 day period, so should still have around 50 tablets left. She told ER staff that she had taken 64 tablets in the 4 day period prior to admission, and [facility] staff reported she told them she had a stash of 20 Ativan tablets. She is refusing contact with her boyfriend, and today is stating that she took all 90 tablets of lorazepam over the 4 days prior to admission and that they are gone. This is highly unlikely, and given the severity of the safety concerns, we will continue efforts to recover these medications and dispose of them safely. 11/01 -boyfriend brought in home medications, and there is no Lorazepam or zolpidem. She continues to insist that she took 90 tablets of lorazepam in 4 days prior to presentation, even though her drug screen was negative on admission. Interestingly, reviewed her drug screen from her emergency room visit 10/10/2017, which was also negative for all substances, although she reported overdosing on 2 weeks worth of Lorazepam (which would be 42 mg) and heroin the day prior. It is possible that she is lying about her substance abuse as well, and could be diverting her controlled substances. 11/02 -patient continues to appear sedated and slowed on the unit; will discontinue Lorazepam in preparation for likely discharge tomorrow. Zolpidem has also been discontinued. Boyfriend was not able to find any Lorazepam or zolpidem in the home. (3) H/O drug abuse 10/28 Avoid opiates, benzodiazepines given history of abuse. Concern does arise for use of Ambien for sleep. 10/29 Active heroin abuse for several months Brief intervention was offered and accepted. Intervention (if performed) was greater than 5 min in length. Brief interventions include: 1. Assess Readiness to Quit, 2. Advise: Help Patient to Reduce or Abstain from heroin 3. Agree: Set Specific, Feasible Goals , 4. Assist: Anticipate barriers, Problem-Solving Solutions. Social work to 5. Arrange: Referrals to appropriate treatment. Summary of intervention: The patient is in contemplation stage with regards to transtheoretical model of change. She wants port removed but doesn't want D&A counseling or rehab. She lives in an area with ready access to heroin. The patient will be provided with recovery materials to continue to education self on how to cope with their condition without drug and benzo use. 10/31 -she continues to refuse substance abuse treatment, although inpatient rehab is recommended. -GI recommends port removal, to be scheduled on the day of discharge. Discharging her with a port in place would be very dangerous given her repeated injection of heroin into her port, as well as injecting feces in order to make herself septic. -Taper off lorazepam and zolpidem as above. Care coordinated with prescribing physician, Dr. Lee, who will cancel her refills. -Would not recommend she be prescribed any controlled substances, medications that are addictive or abusable, given the high risk of harm. 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 -Have consider the need for a CYS report, as the patient states she has unsupervised visitation with her daughter on weekends and Tuesdays. She states that she does not use drugs when she is with her daughter, and does not drive, so her daughter has not been riding with her. We do not have any other information that would indicate the need for a mandated report, and although she reports CYS has been involved in the past, she denies current involvement with them. (4) Factitious disorder 10/31 - Reviewed records from Dr. Lee, and discussed the case with her. Patient sent her an email at the end of September admitting that she had been lying about and exaggerating her symptoms, and injected feces into her port at least twice to make herself ill. She has also told others that she has cancer and is receiving chemo. She was diagnosed with factitious disorder, meets the criteria as she has falsified symptoms, presents herself to others is ill, and does this in the absence of obvious external rewards. -Care coordinated with her intake counselor, Dr. Bryant. He received a letter from Dr. Lee so is aware of her new diagnosis. -Staff to determine logistics to be worked out in order to schedule her for same day surgery to have port removed at the time of discharge from the [facility]. 11/01 -Port to be removed by general surgery tomorrow. Again spent an extensive amount of time today discussing the importance of her being honest with her physicians and medical providers, and the need to engage fully in individual therapy to try to change this pattern of behavior. (5) Post Gastric Bypass Syndrome 10/28 - With chronic nausea, post prandial vomiting, electrolyte disturbances.Recommend continuation for the following: repeat K in am 10/29 - K improving, continue supplementation. Patient is requesting Zofran prior to meals, will attempt few doses today pending GI consult, mainly as would recommend port removal, ideally prior to leaving hospital. Would be scheduled for infusions 11/01 if remains hospitalized. (6) Asthma Continue Proventil MDI 2 puffs q 4 hrs prn sob/wheeze and Flovent 2 puff BID SOB/wheeze (7) Hypertension Continue Lisinopril 10 mg daily (8) Seizure disorder 10/28 - Continue Keppra, last episode "few weeks" ago, seizure precautions. 11/01 - attempted to contact Dr. Garcia her outpatient neurologist ([facility]) to clarify her medications and if her license has been medically revoked due to seizures; had to leave message, awaiting return call. (9) Headache Continue Topamax, Maxalt and Tylenol prn migraine. Continue Gabapentin as it helps with neuropathy due to Topamax side effect, and ensure follow up with outpatient neurologist. (10) MRSA 10/28 - Nasal swab today. She will need an additional swab in one week per protocol. 10/31 -MRSA nasal swab on 10/28/2017 negative; second swab ordered for 11/04/2017 per protocol. Risk Factors Assessment : Yes /single/: Yes Higher / Fall in social status: No Access to guns: No Health problems: Yes Mental Health Diagnoses: Yes Substance use disorders: Yes Previous attempt: Yes Family history of suicide: Yes Previous psychiatric stay: Yes Hopelessness: Yes Smoker: No Protective Factors Assessment Buddhist beliefs: Yes : No Responsible for young children: No Employed: No Stable relationships: Yes Supportive family: No Good rapport with provider: Yes Day of Discharge Assessment COURSE OF HOSPITALIZATION: 42-year-old female admitted to [address] [place] [address] after assessment by [facility] with recommendation for mental health evaluation due to suicidal thoughts and reported abuse of heroin and Ativan. Pt continued on outpatient medications with split dosing of aripiprazole 10mg BID, sertraline 50mg BID and mirtazapine 15mg qHS. Ambien and Ativan discontinued during hospitalization and outpatient provider was made aware. Pt's care was coordinated with outpatient provider and other supports. Pt reported interest in removal of her infusaport due to temptation to inject medications/drugs/and other substances. Diagnosis of factitious disorder reviewed during hospitalization and importance of honesty with providers reviewed. Infusaport removed on 11/02/17 at patient's request. Pt has been participating appropriately with groups while on the unit, but refuses recommendations for outpatient D&A rehab. DAY OF DISCHARGE ASSESSMENT: Pt's case discussed during treatment team. Staff reports the patient will be returning home. Pt was seen today to assess readiness for discharge. Pt states she feels she has been improving over the course of her hospitalization. She states she has noticed improvement in her mood and denies any suicidal thoughts today. Pt reports stability on current medications and is aware of discontinuation of both Ambien and Ativan during her stay. Pt denies other needs or concerns and states she feels ready to return home. Pt reports some mild pain/aches at surgical site, but denies any concerns today s/p removal of infusaport on 11/02/17. Surgical recommendations reviewed with the patient including: keep dressing clean and dry, continue to wear dressing for 4 days. May shower on 11/06/2017. Pt instructed to call Dr. Martínez as needed ([phone] ) if signs of infection including redness, drainage, itching, or other concerns. Based on review of the patient's records and presentation at this encounter, the patient appears appropriate for discharge today. Transition of care record was reviewed with the patient. Pt was encouraged to continue to take medications as prescribed until recommended to stop by another prescriber. The patient presented as alert and cooperative. The patient was casually dressed and groomed. Eye contact was good. No psychomotor restlessness or agitation was noted. Speech was normal in rate, rhythm, and volume. Affect was mood congruent. The patients mood appeared dulled, but less depressed. Thought processes were clear, coherent and goal directed without evidence of loose associations or flight of ideas. Thought content/perception was reality based without delusions. The patient denied suicidal and homicidal ideation. The patient denied hallucinations and did not appear to be responding to internal stimuli. Cognition was grossly intact with orientation to person, place and time. Fund of Knowledge/Intelligence were consistent with level of education. Insight and Judgement were fair. Laboratory Refer to printed laboratory reports Test 10/27/17 13:30 10/27/17 14:36 10/28/17 01:42 10/29/17 08:11 Urine Color YELLOW Urine Appearance CLEAR Urine pH 5.5 Urine Specific [place] 1.019 Urine Protein NEG Urine Glucose (UA) NEG Urine Ketones NEG Urine Occult Blood NEG Urine Nitrite NEG Urine Bilirubin NEG Urine Urobilinogen NEG Urine Leukocyte Esterase NEG Urine Test NEG Urine Opiates Screen NEG Urine Methadone, Qualitative NEG Urine Barbiturates NEG Urine Phencyclidine (PCP) Level NEG Ur Amphetamine/Methamphetamine NEG MDMA (Ecstasy) Screen NEG Urine Benzodiazepines Screen NEG Urine Cocaine Metabolite NEG Urine Marijuana (THC) NEG White Blood Count 4.71 Red Blood Count 3.78 Hemoglobin 12.0 Hematocrit 36.0 Mean Corpuscular Volume 95.2 Mean Corpuscular Hemoglobin 31.7 Mean Corpuscular Hemoglobin Concent 33.3 Platelet Count 176 Mean Platelet Volume 10.2 Neutrophils (%) (Auto) 69.9 Lymphocytes (%) (Auto) 24.8 Monocytes (%) (Auto) 4.5 Eosinophils (%) (Auto) 0.4 Basophils (%) (Auto) 0.2 Neutrophils # (Auto) 3.29 Lymphocytes # (Auto) 1.17 Monocytes # (Auto) 0.21 Eosinophils # (Auto) 0.02 Basophils # (Auto) 0.01 RDW Standard Deviation 51.2 RDW Coefficient of Variation 14.7 Immature Granulocyte % (Auto) 0.2 Immature Granulocyte # (Auto) 0.01 Sodium Level 142 Potassium Level 3.0 3.3 Chloride Level 115 Carbon Dioxide Level 21 Anion Gap 6.0 Blood Urea Nitrogen 9 Creatinine 0.76 Est Creatinine Clear Calc Drug Dose 99.4 Estimated GFR () 111.4 Estimated GFR (Non- 96.1 BUN/Creatinine Ratio 12.3 Random Glucose 122 Calcium Level 8.1 Total Bilirubin 0.3 Direct Bilirubin < 0.1 Aspartate Amino Transferase (AST) 27 Alanine Aminotransferase (ALT) 30 Alkaline Phosphatase 112 Total Protein 6.3 Albumin 3.1 Thyroid Stimulating Hormone (TSH) 1.380 Ethyl Alcohol mg/dL < 3.0 Levetiracetam Level 3.7 Fasting Glucose 78 Triglycerides Level 69 Cholesterol Level 169 HDL Cholesterol 52 LDL Cholesterol, Calculated 103 VLDL Cholesterol, Calculated 14 Cholesterol/HDL Ratio 3.3 Total Time Total Time Spent (min): Greater than 30 minutes Total Time Included: examination of the patient, discharge planning, medication reconciliation, communication with other providers Tobacco Cessation at Discharge Smoking Status: Unknown if Ever Smoked FDA approved Prescription: non-smoker Copies To Additional Copies To: Beatriz Dumont M.D.; Liane Lee
== END 2017-11-03 19:15 | disposition home or self-care (01) | DRG 885 ==
LOC: EDBD 13:20 → C.EDA 13:21 → C.MHU 10-28 12:32
PROVIDERS: ADMIT Psychiatry & Neurology Child & Adolescent Psychiatry; ATTEND Psychiatry & Neurology Child & Adolescent Psychiatry
PROC: 0JPT0YZ Removal of Other Device from Trunk Subcutaneous Tissue and Fascia, Open Approach (ICD-10-PCS; principal; 2017-11-02 14:15)
DX: F31.9 Bipolar disorder, unspecified (principal); R45.851 Suicidal ideations; F11.10 Opioid abuse, uncomplicated; F68.10 Factitious disorder imposed on self, unspecified; D64.9 Anemia, unspecified; E66.9 Obesity, unspecified; G40.909 Epilepsy, unspecified, not intractable, without status epilepticus; K21.9 Gastro-esophageal reflux disease without esophagitis; E78.5 Hyperlipidemia, unspecified; I10 Essential (primary) hypertension; F19.10 Other psychoactive substance abuse, uncomplicated; J45.909 Unspecified asthma, uncomplicated; R51 Headache; F43.10 Post-traumatic stress disorder, unspecified; E87.6 Hypokalemia; K91.1 Postgastric surgery syndromes; Z86.14 Personal history of Methicillin resistant Staphylococcus aureus infection; Z98.84 Bariatric surgery status; Z68.38 Body mass index [BMI] 38.0-38.9, adult; Z88.5 Allergy status to narcotic agent; Z98.51 Tubal ligation status; Z90.49 Acquired absence of other specified parts of digestive tract; Z91.010 Allergy to peanuts; Z91.14 Patient's other noncompliance with medication regimen; Z83.3 Family history of diabetes mellitus; Z80.1 Family history of malignant neoplasm of trachea, bronchus and lung; Z82.49 Family history of ischemic heart disease and other diseases of the circulatory system

== ENCOUNTER 2017-12-01 16:28 | Emergency (ER) | payer OTHER ==
[~2017-12-01] VITALS: Ht 157.5 cm; Wt 114.0 kg
[~2017-12-01 16:28] MED LIST changes: -ABL/15 PO; +ABL10 PO; -ATV/1 PO; -MIRT15TA3 PO; +RMR15 PO; -SERT1TAB68 PO; +ZLF/100 PO; -ZOLP10TA6 PO; +[UNRECOGNIZED DRUG - CODE] IV; -[UNRECOGNIZED DRUG - CODE] IV
[2017-12-01 16:37] VITALS: TEMP 36.6; Ht 157.5 cm; Wt 114.0 kg
[2017-12-01] MEDS ORDERED: GI COCKTAIL PO STA (16:40)
[2017-12-01] MEDS ORDERED: SUCRALFATE 1 GM TAB PO STA (16:40)
[2017-12-01] MEDS ORDERED: FAMOTIDINE 20 MG TAB PO STA (16:40)
[2017-12-01] MEDS ORDERED: RANITIDINE HCL 150 MG TAB PO STA (16:40)
[2017-12-01] MEDS ORDERED: ALUMINUM/MAGNESIUM SUSP 30 ML UDC ONE (16:46)
[2017-12-01] MEDS ORDERED: LIDOCAINE HCL 2% VISC SOLN 20 ML UDC ONE (16:46)
--- NOTE | 2017-12-01 16:52 | EMERGENCY ROOM VISIT NOTE ---
History Report prepared by Jacqueline: Reynaldo Apodaca Under the Supervision of: Dr. Isaac Berry M.D. First contact with patient: 16:35 Stated Complaint: ITCHY TONGUE History of Present Illness The patient is a 42 year old female who presents to the Emergency Room with complaints of a persistent tingling sensation in the back of her throat that began prior to arrival. She rates her discomfort as a 5/10 in severity. The patient states that she woke up from a nap today when she felt tingling in the back of her throat. She reports that whenever she feels the back of her tongue she can feel large lumps. The patient states she usually develops blisters like her current symptom whenever she eats nuts since she is allergic. She reports that she does not believe she ate anything with nuts today. The patient denies taking Benadryl. Source of History: patient Onset: BACK TENDER Position: throat Symptom Intensity: 5/10 Quality: tingling Timing: constant Review of Systems See HPI for pertinent positives & negatives. A total of 10 systems reviewed and were otherwise negative. Past Medical & Surgical Medical Problems: (1) a-port placement (2) Abdominal pain (3) Agoraphobia (4) Asthma (5) Bipolar I disorder (6) Chronic anemia (7) Chronic pelvic pain in female (8) Dynamic ileus (9) Factitious disorder (10) H/O drug abuse (11) Heavy menstrual bleeding (12) History of esophageal dilatation (13) Ileus (14) MRSA (15) Obesity (16) Opiate addiction (17) Polycystic kidney disease, adult type (18) Post Gastric Bypass Syndrome (19) Postgastric surgery syndrome (20) PTSD (21) Seizure disorder (22) Tubal ligation evaluation Surgical Problems: (1) excessive skin removal (2) gastric revision procedure with gastric bypass (3) H/O colonoscopy (4) H/O esophagogastroduodenoscopy (5) H/O exploratory laparotomy (6) H/O gastric bypass (7) H/O ventral hernia repair (8) H/O wisdom tooth extraction (9) lysis of adhesions (10) S/P cholecystectomy (11) S/P endometrial ablation (12) S/P laparoscopic hysterectomy (13) S/P panniculectomy (14) S/P partial gastrectomy (15) Status post unilateral salpingo-oophorectomy (16) wedge biopsy liver Social History Problems: (1) Gastroesophageal reflux disease (2) Hyperlipidemia Family History Cancer MOTHER (lung) Diabetes mellitus FATHER FH: gallbladder disease FH: lung disease FHx: heart disease FATHER Hypertension MOTHER Stroke FATHER Social History Smoking Status: Unknown if Ever Smoked Alcohol Use: none Drug Use: none Marital Status: , in relationship Housing Status: lives with significant other Occupation Status: employed Current/Historical Medications Scheduled Cholecalciferol (Vitamin D3), 50,000 INTER.UNIT PO WK Gabapentin (Neurontin), 300 MG PO TID Prednisone (Prednisone Tab), 0 PO DAILY Ranitidine Hcl (Zantac), 150 MG PO BID Vitamin A (Vitamin A), 10,000 INTER.UNIT PO DAILY Scheduled PRN Benzonatate (Tessalon Perles), 100-200 MG PO TID PRN for Cough Ondasetron Odt (Zofran Odt), 4 MG OR Q8 PRN for Nausea Allergies Coded Allergies: Morphine (Verified Allergy, Severe, TONGUE SWELLING, difficulty breathing/ wheezing, 10/27/17) tolerates hydromorphone Colestipol (Verified Allergy, Intermediate, red rash (no itching), 10/27/17) Cat Dander (Verified Allergy, Unknown, ITCHY WATERY EYES , 10/27/17) NUTS (Verified Allergy, Unknown, skin test showed nut allergy, 10/27/17) per pt, eats peanuts without issue Scopolamine (Verified Adverse Reaction, Severe, Seizure, 10/27/17) SEIZURES ONLY WHEN COMBINED W/ WELLBUTRIN. Promethazine (Verified Adverse Reaction, Intermediate, "CAN'T SIT STILL", 10/27/17) Bupropion (Verified Adverse Reaction, Unknown, Seizure, 10/27/17) SEIZURES WHEN WELLBUTRIN IS COMBINED W/ SCOPALAMINE. Physical Exam Vital Signs Date Time Temp Pulse Resp B/P (MAP) Pulse Ox O2 Delivery O2 Flow Rate FiO2 12/01/17 17:35 68 18 131/96 96 Room Air 12/01/17 16:37 36.6 79 18 159/102 98 Room Air Physical Exam GENERAL: Awake, alert, well-appearing, in no acute distress HENT: Normocephalic, atraumatic. Oropharynx unremarkable. EYES: Normal conjunctiva. Sclera non-icteric. NECK: Supple. No nuchal rigidity. FROM. No JVD. No stridor. RESPIRATORY: Clear to auscultation. CARDIAC: Regular rate, normal rhythm. Extremities warm and well perfused. Pulses equal. ABDOMEN: Soft, non-distended. No tenderness to palpation. No rebound or guarding. No masses. RECTAL: Deferred. MUSCULOSKELETAL: Chest examination reveals no tenderness. The back is symmetrical on inspection without obvious abnormality. There is no CVA tenderness to palpation. No joint edema. LOWER EXTREMITIES: Calves are equal size bilaterally and non-tender. No edema. No discoloration. NEURO: Normal sensorium. No sensory or motor deficits noted. SKIN: No rash or jaundice noted. Medical Decision & Procedures Medications Administered Medications (Trade) Dose Ordered Sig/Rigo Route Start Time Stop Time Status Last Admin Dose Admin Prednisone (PredniSONE TAB) 60 mg NOW STAT PO 12/01/17 16:40 12/01/17 16:43 DC 12/01/17 16:53 60 MG Diphenhydramine HCl (Benadryl Cap) 50 mg NOW STAT PO 12/01/17 16:40 12/01/17 16:43 DC 12/01/17 16:53 50 MG Ranitidine HCl (zANTac TAB) 150 mg NOW STAT PO 12/01/17 16:40 12/01/17 16:43 DC 12/01/17 16:53 150 MG Famotidine (Pepcid Tab) 20 mg NOW STAT PO 12/01/17 16:40 12/01/17 16:43 DC 12/01/17 16:53 20 MG Sucralfate (Carafate Tab) 1 gm NOW STAT PO 12/01/17 16:40 12/01/17 16:44 DC 12/01/17 16:53 1 GM Lidocaine HCl (Viscous Lidocaine 2% Soln) 20 ml STK-MED ONCE .ROUTE 12/01/17 16:46 12/01/17 16:47 DC 12/01/17 16:52 20 ML Al Hydroxide/Mg Hydroxide (Maalox Susp) 30 ml STK-MED ONCE .ROUTE 12/01/17 16:46 12/01/17 16:47 DC 12/01/17 16:52 30 ML ED Course 1636: Past medical records reviewed. The patient was evaluated in room D03B. A complete history and physical examination was performed. 1640: Ordered Carafate Tab 1 gm PO, Pepcid Tab 20 mg PO, Gi Cocktail 24 ml PO, Zantac Tab 150 mg PO, Benadryl Cap 50 mg PO, Prednisone 60 mg PO. 1646: Ordered Maalox Susp 30 ml IV, Lidocaine HCL 20 ml. 1724: Upon reexamination the patient is resting comfortably. I discussed results and treatment plan with the patient. She verbalizes agreement and understanding. The patient is ready for discharge. Medical Decision Prior records/ancillary studies reviewed. Triage Nursing notes reviewed. The patient's history was concerning for possible allergic reaction. Differential diagnosis: Etiologies such as allergic reaction, anaphylaxis, urticaria, Taylor-Ellis syndrome, toxic epidermal necrolysis, erythema multiforme, cellulitis, as well as others were entertained. This is a 42-year-old female who presents emergency department complaining of bumps to the back of her tongue. Patient is concerned that she is having an allergic reaction however I suspect she is actually suffering from GERD. She has no stridor on examination and is not hypoxic. In addition there is no wheezing present in her lungs. For this reason and using shared medical decision making, the patient was given prednisone and Benadryl and Zantac. She was also given a GI cocktail Pepcid and Carafate. The patient felt that the GI cocktail helped her the most and feels 100% better. Based on this I feel that the patient can be safely discharged home however I recommended a clear liquid diet for the next 48 hours along with 5 mL's of Maalox before every meal and at bedtime. Patient will be placed on Zantac and a short prednisone taper. Strongly recommended that the patient take 50 mg's Benadryl every 6 hours as needed. Patient was in agreement with treatment plan. Medication Reconcilliation Current Medication List: was personally reviewed by me Blood Pressure Screening Patient's blood pressure: Elevated blood pressure Blood pressure disposition: Referred to PCP Impression Primary Impression: Reflux esophagitis Scribe Attestation The scribe's documentation has been prepared under my direction and personally reviewed by me in its entirety. I confirm that the note above accurately reflects all work, treatment, procedures, and medical decision making performed by me. Departure Information Dispostion Home / Self-Care Prescriptions Ranitidine Hcl (ZANTAC) 150 Mg Tab 150 MG PO BID for 7 Days, #14 TAB Prov: Isaac Berry MD 12/01/17 Prednisone (Prednisone Tab) 20 Mg Tab 0 PO DAILY, #7 TAB 2 TABS DAILY FOR 2 DAYS, THEN 1 TAB DAILY FOR 2 DAYS, THEN 1/2 TAB DAILY FOR 2 DAYS. Prov: Isaac Berry MD 12/01/17 Referrals Marivel Harrell MD (PCP) Forms HOME CARE DOCUMENTATION FORM, IMPORTANT VISIT INFORMATION, WORK / SCHOOL INSTRUCTIONS Patient Instructions ED GERD, [facility] Additional Instructions Take 50 mg Benadryl every 6 hours Take 5 ml Maalox before every meal and at bedtime Clear liquid diet next 48 hours You have been examined and treated today on an emergency basis only. This is not a substitute for, or an effort to provide, complete comprehensive medical care. It is impossible to recognize and treat all injuries or illnesses in a single emergency department visit. It is therefore important that you follow up closely with Dr Harrell. Call as soon as possible for an appointment. Thank you for your time and consideration. I look forward to speaking with you again soon. Please don't hesitate to call us if you have any questions. Right eye
[2017-12-01] MEDS ORDERED: VITA10006 PO (17:01)
[2017-12-01] MEDS ORDERED: ONDA4TAB10 OR (17:01)
[2017-12-01] MEDS ORDERED: CHOL1CAP95 PO (17:01)
[2017-12-01] MEDS ORDERED: BENZ-54 PO (17:02)
[2017-12-01] MEDS ORDERED: RANI150T3 PO (17:26)
[2017-12-01] MEDS ORDERED: PRED20TA2 PO (17:26)
[2017-12-01 17:35] VITALS: BP 131/96; PULSE 68; O2SAT 96
== END 2017-12-01 17:37 | disposition home or self-care (01) ==
LOC: EDBD 16:28 → C.EDD 16:29
DX: K21.0 Gastro-esophageal reflux disease with esophagitis (principal); R03.0 Elevated blood-pressure reading, without diagnosis of hypertension; Z87.19 Personal history of other diseases of the digestive system; Z88.6 Allergy status to analgesic agent; Z88.8 Allergy status to other drugs, medicaments and biological substances; Z91.048 Other nonmedicinal substance allergy status; Z91.018 Allergy to other foods

== ENCOUNTER → 2018-02-19 | Outpatient (CLI) | payer OTHER ==
[~2018-02-19] MED LIST changes: -ABL10 PO; -ACET-1256 PO; -ADEK PO; -ALBUAER INH; +CHOL1CAP95 PO; -CHOL20007 PO; -COPP1TAB PO; -CYNI1000 IM; -ERGO500011 PO; -FLVHFA110 INH; -GABA-113 PO; -IRON20IN IV; -KPP/1000 PO; -LISI-461 PO; +ONDA4TAB10 OR; -PEDICHW53 PO; -POLY335019 PO; -POTA20TA13 PO; -RIZA10TA18 PO; -RMR15 PO; -THIA50TA3 PO; -TOPI100T20 PO; -TRMCR130WC TOP; -VALA500T60 PO; +VITA10006 PO; -ZFRODT/8 PO; -ZINC50TA3 PO; -ZLF/100 PO; -[UNRECOGNIZED DRUG - CODE] IV
--- NOTE | 2018-02-19 10:37 | DIAGNOSTIC IMAGING REPORT ---
(CHEST) THORAX WITHOUT CT DOSE: 368.99 mGy.cm CLINICAL HISTORY: 42 years-old Female with MULTIPLE LUNG NODULES. Follow-up study in a patient with history of pulmonary nodules TECHNIQUE: Multiaxial CT images of the chest were performed without contrast. A dose lowering technique was utilized adhering to the principles of ALARA. COMPARISON: CTA of the chest 07/11/2017 FINDINGS: No dominant thyroid nodule identified. Calcified subcarinal and left hilar lymph nodes compatible with prior granulomatous disease. Heart is normal in size without pericardial effusion. Mild calcification of the thoracic aorta. No pneumothorax or pleural effusion. Calcified granulomata about the left lower lobe. 4 mm solid nodule of the left lower lobe, image 176 series 4 appears new from prior. No focal airspace consolidation to suggest pneumonia. There is resolution of the previously described focal groundglass opacities of the right upper lobe. Central airways are patent. Calcified granulomata about the spleen. Prior gastric bypass and cholecystectomy. Soft tissues and breast parenchyma appear unremarkable. Bones appear to be intact. Multilevel spondylitic spurring. IMPRESSION: 1. Resolution of the previously described focal groundglass opacities of the right upper lobe suggest resolved pneumonitis. 2. New 4 mm solid nodule of the left lower lobe, likely benign. 3. No focal airspace consolidation to suggest pneumonia. 4. Prior granulomatous disease. 5. Additional findings as above. Please refer to below summary of Fleischner criteria recommendations for follow-up of incidental CT nodules (Ortiz Bergeron, Guidelines for management of small pulmonary nodules detected on CT scans: A statement from the Fleischner Society, Radiology 237: [phone].) SOLID NODULES Solitary nodule size: <6 mm * Low risk patients: no follow-up needed * high risk patients: optional CT at 12 months Note: newly detected indeterminate nodule in persons 35 years of age or older. * Low risk patients: minimal or absent history of smoking and/or other known risk factors * high risk patients: history of smoking or of other known risk factors (e.g. first degree relative with lung cancer, or exposure to asbestos, radon, uranium) * if a nodule up to 8 mm is partly solid or is ground glass further follow-up is required after 24 months to exclude possible slow growing adenocarcinoma (AIRAM) The above report was generated using voice recognition software. It may contain grammatical, syntax or spelling errors. Electronically signed by: Mp Singleton M.D. 02/19/2018 10:36 AM Dictated Date/Time: 02/19/2018 10:28 AM
== END | disposition home or self-care (01) ==
LOC: C.CTS 10:14
PROVIDERS: ATTEND Family Medicine
DX: R91.8 Other nonspecific abnormal finding of lung field (principal)

== ENCOUNTER 2019-01-10 06:34 | Inpatient (IN) ==
[2019-01-10] MEDS ORDERED: DiphenhydrAMINE HCL 50 MG/ML VIAL IV STA (06:46)
[2019-01-10] MEDS ORDERED: MAGNESIUM SULFATE / D5W 1 GM/100 ML BAG IV ONE (06:46)
[2019-01-10] MEDS ORDERED: KETOROLAC 30 MG/ML VIAL IV STA (06:46)
[2019-01-10] MEDS ORDERED: PROCHLORPERAZINE 2 ML IV ONE (06:46)
[2019-01-10] MEDS ORDERED: SODIUM CHLORIDE 0.9% 1000ML 1,000 ML IV ONE ×2 (06:48→07:24)
[2019-01-10 07:09] LABS: Eosinophils # (auto) 0.02 K/uL (0-0.5); Eosinophils % (auto) 0.2 %; Hematocrit (blood only) 35.4 % (37-47); Hemoglobin 11.6 g/dL (12.0-16.0); Immature Granulocytes # (auto) 0.02 K/uL (0.00-0.02); Immature Granulocytes % (auto) 0.2 %; Lymphocytes % (auto) 1.7 %; Mean Corpuscular Hgb Conc 32.8 g/dL (32-36); Mean Corpuscular Volume 97.8 fL (80-100); Mean Platelet Volume 9.1 fL (7.4-10.4); Monocytes # (auto) 0.65 K/uL (0.11-0.59); Monocytes % (auto) 5.4 %; Neutrophils # (auto) 11.21 K/uL (1.4-6.5); Neutrophils % (auto) 92.5 %; Platelet Count 192 K/uL (130-400); RDW Coefficient of Variation 13.3 % (11.5-14.5); RDW Standard Deviation 47.6 fL (36.4-46.3); Red Blood Count 3.62 M/uL (4.2-5.4)
--- NOTE | 2019-01-10 07:12 | XRay Report ---
XR chest 1V portable CLINICAL HISTORY: Sepsis COMPARISON STUDY: 12/20/2018 FINDINGS: The cardiac and mediastinal contours are normal. There is no evidence of focal pulmonary co nsolidation. There is no evidence of failure. No pleural effusions are visualized.[ There is a left l ower lung zone calcified granuloma. IMPRESSION: No active disease in the chest. Electronically signed by: Ernesto Black M.D. 01/10/2019 7:11 AM
[2019-01-10 07:19] LABS: iSTAT Creatinine 0.6 mg/dl (0.6-1.3); iSTAT Hemoglobin 12.6 g/dl (12.0-16.0); iSTAT Ionized Calcium 1.16 mmol/l (1.12-1.32); iSTAT Potassium 3.6 mEq/L (3.3-5.0)
[2019-01-10 07:24] LABS: INR 1.1 (0.9-1.1); Partial Thromboplastin Ratio 0.9; Partial Thromboplastin Time 25.4 Seconds (21.0-31.0); Prothrombin Time 10.9 Seconds (9.0-12.0)
[2019-01-10] MEDS ORDERED: PIPERACILL/TAZOBAC CONSULT ACTIVE PRN (07:24)
[2019-01-10] MEDS ORDERED: PIPERACILLIN/TAZOBACTAM 4.5 GM/120 ML BAG IV ONE (07:24)
[2019-01-10] MEDS ORDERED: VANCOMYCIN HCL 1,500 MG in SODIUM CHLORIDE 0.9% 500 ML IV ONE (07:24)
[2019-01-10] MEDS ORDERED: VANCOMYCIN CONSULT ACTIVE PRN ×2 (07:24→08:53)
[2019-01-10] MEDS ORDERED: LEVOFLOXACIN/D5W 750 MG/150 ML BAG IV STA (07:24)
[2019-01-10 07:26] LABS: Alanine Aminotransferase 23 U/L (12-78); Aspartate Aminotransferase 24 U/L (15-37); BUN Creatinine Ratio 11.8 (10-20); Blood Urea Nitrogen 8 mg/dl (7-18); Calcium 8.4 mg/dl (8.5-10.1); Carbon Dioxide 23 mmol/L (21-32); Chloride 109 mmol/L (98-107); Creatinine Clr Calc Pharmacy 101.7 ml/min; Est GFR (African American) 122.7; Est GFR (Non-African American) 105.9; Glucose 125 mg/dl (70-99); Potassium 3.6 mmol/L (3.5-5.1); Sodium 138 mmol/L (136-145)
[2019-01-10] MEDS ORDERED: SODIUM CHLORIDE 0.9% 1000ML 500 ML IV ONE (07:26)
[2019-01-10 07:31] LABS: Albumin Globulin Ratio 0.8 (0.9-2); Alkaline Phosphatase 84 U/L (45-117); Bilirubin,Total 0.3 mg/dl (0.2-1); Creatine Kinase 109 U/L (26-192); Creatine Kinase MB < 1.0 ng/ml (0.5-3.6); Globulin 3.6 gm/dl (2.5-4.0); Total Protein 6.6 gm/dl (6.4-8.2); Troponin I < 0.015 ng/ml (0-0.045)
[2019-01-10 07:35] LABS: Influenza A virus by PCR Neg for Influ A (Neg); Influenza B virus by PCR Neg for Influ B (Neg)
--- NOTE | 2019-01-10 07:37 | CT Scan Report ---
CT head/brain wo con CT DOSE: 537.48 mGy.cm HISTORY: Mental status change Pt c/o headache TECHNIQUE: Multiaxial CT images of the head were performed without the use of intravenous contrast. A dose lowering technique was utilized adhering to the principles of ALARA. Comparison: 09/01/2018 Findings: The paranasal sinuses and mastoid air cells are clear. The calvarium and skull base are int act. The ventricles and sulci are within normal limits. There is no mass, hematoma, midline shift, or acute infarct. Impression: No acute intracranial abnormality. The above report was generated using voice recognition software. It may contain grammatical, syntax or spelling errors. Electronically signed by: Ganga Guzman M.D. 01/10/2019 7:35 AM
[2019-01-10] MEDS ORDERED: LIDOCAINE HCL 1% 20 ML VIAL INFIL ONE (07:39)
[2019-01-10 07:47] LABS: Appearance Urine Clear (Clear); Bilirubin Urine Negative (Negative); Blood Urine Negative (Negative); Color Urine Yellow; Glucose Urine UA Negative (Negative); Ketones Urine Negative (Negative); Leukocyte Esterase Urine Negative (Negative); Nitrite Urine Negative (Negative); Protein Urine Negative (Negative); Specific Gravity Urine 1.017 (1.000-1.030); Urobilinogen Urine Negative (Negative)
[2019-01-10 07:51] LABS: Procalcitonin 5.53 ng/ml (0-0.5)
[2019-01-10 07:58] LABS: Lyme Ab IgG w/WB Rflx Negative (Negative); Lyme Ab IgM w/WB Rflx Negative (Negative)
[2019-01-10] MEDS ORDERED: ACETAMINOPHEN 1,000 MG/100 ML VIAL IV STA (08:05)
--- NOTE | 2019-01-10 08:08 | History & Physical Report ---
Date of Service January 10, 2019 Assessment & Plan (1) Heart murmur: (2) Headache: (3) Elevated lactic acid level: (4) Nausea: - Admit to tele - Check 2D echo, consult cardiology with new and louder murmur on exam. Last echo in 2014 was normal. - cont Vanco IV to cover for possible MRSA endocarditis first dose in the ER - Rocephin 2 g daily - Doxycycline 100 mg bid to cover possible Lyme's. Initial titres neg. - follow blood culture x2 - LP results appears negative - Patient was present here 2 weeks ago for similar presentations of rigors, sweats, nausea where she was placed on Augmentin x10 days. Patient finished the course a few days ago, and reports return of symptoms. - Concerning as patient describes headache (however denies that this is the worst headache of her life, reports she has had history of migraines which been much worse in the past). Patient is able to move her neck and her head, able to roll over on her side without extreme pain, no nuchal rigidity. - Patient is a frequent visitor here in our ER for lumbargo, pain control - pt had seen pain management, Dr. Smith in the remote past. (5) Herpes genitalia: - Continue valacyclovir 1 g daily, no recent flares (6) H/O drug abuse: - Denies any active drug currently. Patient reports last use was a little over 1 year ago. - Tox screen negative (7) Depression: (8) Factitious disorder: -Continue Paxil 20 mg every morning, gabapentin 300 mg TID, Remeron 30 mg HS (9) Obesity: -BMI = 32.1, diet and exercise to be encouraged upon discharge (10) H/O gastric bypass: (11) S/P partial gastrectomy: - Cont creon 1 cap PO with snacks and 2 cap with meals, continue pantoprazole 40 mg daily - Cont vitamin D, Calcium, B-12, A supplementation (12) DVT prophylaxis: -clarice Longoria History of Present Illness Primary Care Provider: Marivel Harrell MD This is a 43 yo F with PMHx of depression, chronic pain, IVDA, benzodiazepene and ilicit drug abuse, obesity, colon cancer, anemia, polycystic kidney disease who presented to the ER with nausea, rigors, sweats which started at 0100 this morning. The patient was seen in the ER on 12/20/2018 for similar symptoms, at that point patient was placed on a course of Augmentin x10 days and patient complete the course a few days ago. Patient is noted to have a systolic murmur which previously had not been present. She denies any recent drug use, and reports last use was over 1 year ago. Pt did not take morning medications. She denies any other acute complaints and felt in her normal health yesterday. 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 No tobacco use or drug use currently. No etoh use. Lives with boyfriend. Has a 13 yo daughter. Allergies Allergy/AdvReac Type Severity Reaction Status Date / Time morphine Allergy Severe TONGUE Verified 01/10/19 06:37 SWELLING, difficulty breathing/wheezing colestipol Allergy Intermediate red rash Verified 01/10/19 06:37 (no itching) cat dander Allergy Unknown ITCHY Verified 01/10/19 06:37 WATERY EYES nut - unspecified Allergy Unknown skin test Verified 01/10/19 06:37 showed nut allergy scopolamine AdvReac Severe Seizure Verified 01/10/19 06:37 promethazine AdvReac Intermediate "CAN'T SIT Verified 01/10/19 06:37 STILL" bupropion AdvReac Unknown Seizure Verified 01/10/19 06:37 Home Medications Home Medications Medication Instructions Recorded Confirmed Type calcium carbonate-vitamin D3 1 tab PO BID 05/19/18 01/10/19 History [Calcium 500 + D] cholecalciferol (vitamin D3) 50,000 unit PO 2XWK 05/19/18 01/10/19 History triamcinolone acetonide 1 applic TOPICAL DAILY PRN 05/19/18 01/10/19 History vitamin A 20,000 unit PO DAILY 05/19/18 01/10/19 History cyanocobalamin (vitamin B-12) 1,000 mcg IM WK 09/01/18 01/10/19 History avhrww-wshcfeig-qjqzmyp [Creon] 1 cap PO . WITH SNACKS 09/01/18 01/10/19 History kinslp-kopihcbk-zwdaure [Creon] 2 cap PO AC 09/01/18 01/10/19 History mirtazapine [Remeron] 30 mg PO HS 09/01/18 01/10/19 History ondansetron HCl [Zofran] 8 mg PO TID PRN 09/01/18 01/10/19 History paroxetine HCl [Paxil] 20 mg PO QAM 09/01/18 01/10/19 History valacyclovir 1,000 mg PO DAILY 09/01/18 01/10/19 History acetaminophen 500 mg tablet 1,000 mg PO Q4 PRN tab 01/09/19 01/10/19 History pantoprazole 40 mg tablet,delayed 40 mg PO DAILY tab 01/09/19 01/10/19 History release gabapentin 300 mg PO TID 01/10/19 01/10/19 History pedi multivitamin no.79-iron 1 tab PO BID 01/10/19 01/10/19 History [Flintstones with Iron] Past Med/Surg History Medical History Colon cancer Chronic anemia (Chronic) Postgastric surgery syndrome (Chronic Unknown) Polycystic kidney disease, adult type (Chronic Unknown) Agoraphobia (Chronic Unknown) H/O drug abuse (Chronic) "heroin, alcohol, opiates, cocaine, benzo's" On 10/21/15 11:53 Felicita Lujan wrote "heroin, alcohol " History of esophageal dilatation (Chronic) "2009" Tubal ligation evaluation (Chronic) Epigastric abdominal pain (Acute) Abdominal pain Shortness of breath (Acute) Chest pain (Acute) Midsternal chest pain (Acute) Syncope (Acute) Vomiting (Acute) Ileus Heavy menstrual bleeding Rash and nonspecific skin eruption (Acute) Swelling of lower extremity (Acute) Headache (Acute) Facial rash (Acute) Hypertension (Acute) Obesity Chronic pelvic pain in female Nausea vomiting and diarrhea (Acute) Allergic reaction (Acute) Benzodiazepine abuse (Acute) Dehydration (Acute) Depression (Acute) Diarrhea (Acute) Factitious disorder Noncompliance with medication regimen (Acute) Opiate addiction Seizure disorder (Chronic) Suicidal ideation (Acute) Surgical History H/O wisdom tooth extraction (Chronic) H/O gastric bypass (Chronic) S/P cholecystectomy (Chronic) H/O exploratory laparotomy (Chronic) "2009, 2010, 2012" H/O colonoscopy (Chronic) S/P panniculectomy (Chronic) "2010" H/O ventral hernia repair (Chronic) H/O esophagogastroduodenoscopy (Chronic) S/P endometrial ablation (Chronic) S/P partial gastrectomy (Chronic) S/P laparoscopic hysterectomy Status post unilateral salpingo-oophorectomy Family History Father Colorectal cancer Myocardial infarction Other Colon cancer Diabetes Gallbladder disease Heart disease Hypertension Lung disease Social History Preferred Language: Telugu Communication Ability: Effective Beliefs That Will Affect Care: None marital status: Current Living Situation: Family and Significant Other Current Living Situation Comment: lives with friend/significant other current occupational status: employed Feels Safe at Home: Yes Smoking Status: Never smoker Second Hand Exposure: No Hx Alcohol Use: No Hx Substance Use: Yes (history) substance use type: opiates Review of Systems Review of Systems: Constitutional: See HPI, + fever, sweats, rigors Eyes: No diplopia, no worsening or blurred vision ENT: normal hearing, no trouble swallowing Respiratory: No cough, sputum, dyspnea at rest or on exertion Cardiovascular: No chest pain, tightness or palpitations Abdomen: No pain, + nausea, no vomiting, diarrhea or constipation Musculoskeletal: + Back pain, + pain in the back of her legs, no calf pain or swelling Neurologic: No weakness, numbness/tingling, or balance problems Psychiatric:+ anxiety & depression, controlled Skin: No rash or itch Physical Exam Physical Exam: General: awake, alert, no apparent distress, fatigued Head: Normocephalic, atraumatic ENT: PERRL, EOMI, no pharyngeal exudate, mucous membranes moist Chest: Clear to auscultation, on room air, no adventitious breath sounds Cardiac: Regular rate and rhythm, no murmur, no JVD, normal peripheral pulses, good capillary refill Abdominal: NABS x 4 quadrants, soft, nontender to palpation, no rebound, guarding or tenderness Extremities: Normal inspection, no peripheral edema or erythema, calfs nontender to palpation Psych: Normal mood and affect Neuro: AAO x 3, strength intact bilaterally and related 5/5, no nuchal rigidity, no motor deficits, speech is clear, no peripheral sensory deficits Skin: no rash or erythema Results & Data Vital Signs (Past 12 Hours) Vital Signs Temp Pulse Resp BP Pulse Ox 01/10/19 08:06 37.0 C 01/10/19 08:04 82 17 138/71 94 01/10/19 07:46 92 H 20 124/72 96 01/10/19 07:38 88 20 138/78 95 01/10/19 07:17 96 H 18 148/97 H 96 01/10/19 07:09 99 H 15 141/79 H 95 01/10/19 06:48 95 01/10/19 06:41 38.4 C H 102 H 20 131/[address] head/brain wo con CT DOSE: 537.48 mGy.cm HISTORY: Mental status change Pt c/o headache TECHNIQUE: Multiaxial CT images of the head were performed without the use of intravenous contrast. A dose lowering technique was utilized adhering to the principles of ALARA. Comparison: 09/01/2018 Finding: The paranasal sinuses and mastoid air cells are clear. The calvarium and skull base are intact. The ventricles and sulci are within normal limits. There is no mass, hematoma, midline shift, or acute infarct. Impression: No acute intracranial abnormality. XR chest 1V portable CLINICAL HISTORY: Sepsis COMPARISON STUDY: 12/20/2018 FINDINGS: The cardiac and mediastinal contours are normal. There is no evidence of focal pulmonary consolidation. There is no evidence of failure. No pleural effusions are visualized.[ There is a left lower lung zone calcified granuloma. IMPRESSION: No active disease in the chest. Code Status & VTE Plan Code Status Full code-discussed with patient at bedside, patient notes boyfriend would make decisions for her she was unable to however he is not legally the patient's POA. 13-year-old daughter. Parents live in [place]. Supervising Physician Co-Signing Physician Notes Attending Attestation and Admission Note: Pt seen/examined, chart reviewed, care plan d/w ISAMAR Moore. I agree w/ the canales components of her admission documentation. 43yo female with history of past polysubstance abuse including IV drug abuse (none in 12+ months), colon ca, partial gastrectomy - presenting with 2+ weeks of fevers, chills, sweats, and headache/neck pain. Received 10 day course of augmentin - symptoms improved and fever resolved. However, symptoms returned 2- 3 days after her antibiotic course was completed. She states her top 2 symptoms are the fevers/chills and neck pain. She typically does NOT have neck pain. No obvious tick bites. No recent travel. LP completed in ER - no WBCs on cell counts. U/a wnl. CXR w/o pneumonia. Echo w/o obvious vegetations. Blood cx's pending. PMH, PSH, allergies, meds, sochx, famhx, ros - reviewed febrile at presentation other vitals stable gen - nontoxic, NAD mouth - MMM, no dental abscess, no HSV lesions neck - tender to palpation over c-spine at C2-C4 levels, no meningismus heart - RRR, s1, s2, 2/6 TRICIA LSB lungs - CTA b/l abd - soft, NT, ND, BS+ ext - no edema skin - no rash musculo - no synovitis of any large or small joint A/P: sepsis - source uncertain. fever of unknown origin. headache/neck pain. given the large negative w/u thus far and ongoing neck pain will obtain MRI c- spine w/ contrast STAT to r/o diskitis/epidural abscess. Cont current abx regimen including doxy to cover for tick-borne diseases. Pain control of neck w/ toradol and/or tylenol. follow cultures. Gurmeet Maher MD PG Care Time/CCT Total # of Minutes Spent Total Time Spent with Patient: Total time spent is greater than 50% in coordination of care (as documented) at patient's floor/unit and/or counseling patient:
[2019-01-10 08:14] LABS: CSF Chemistry Tube # 1
[2019-01-10 08:24] LABS: Appearance CSF Clear; CSF Count Tube # 3; CSF Xanthrochromic No xanthochromia; Color CSF Colorless
[2019-01-10 08:25] LABS: Red Blood Cell CSF (A) 1 /uL (0-); Red Blood Cell CSF (B) 1 /uL (0-); White Blood Cell CSF (A) 1 /uL (0-5); White Blood Cell CSF (B) 4 /uL (0-5)
[2019-01-10 08:30] LABS: CSF Glucose 76 mg/dl (40-70)
[2019-01-10] MEDS ORDERED: ONDANSETRON INJ 2 MG/ML 2 ML VIAL IV PRN (08:53)
[2019-01-10] MEDS ORDERED: ACETAMINOPHEN 500 MG TAB PO PRN (08:56)
[2019-01-10] MEDS ORDERED: TRIAMCINOLONE ACET 0.025% CR 15 GM TUBE TOP PRN (08:56)
[2019-01-10] MEDS ORDERED: ERGOCALCIFEROL 50,000 UNITS CAP PO SCH (09:00)
[2019-01-10] MEDS ORDERED: VITAMIN A PO SCH (09:00)
[2019-01-10] MEDS ORDERED: VANCOMYCIN HCL 1,000 MG in SODIUM CHLORIDE 0.9% 250 ML IV SCH (09:00)
[2019-01-10] MEDS: GABAPENTIN 300 MG CAP PO SCH ×3 (10:36→20:12)
[2019-01-10] MEDS: DOXYCYCLINE HYCLATE 100 MG CAP PO SCH ×2 (10:37→20:13)
[2019-01-10] MEDS: PANTOprazole 40 MG TAB PO SCH (10:38)
[2019-01-10] MEDS: PARoxetine HCl 20 MG TAB PO SCH (10:38)
[2019-01-10] MEDS: ENOXAPARIN INJ 40 MG/0.4 ML SYR SQ SCH (10:43)
[2019-01-10] MEDS: cefTRIAXone SODIUM 2,000 MG in DEXTROSE 5% 50 ML IV SCH (10:43)
[2019-01-10] MEDS: VALACYCLOVIR HCL 500 MG TABLET PO SCH (10:45)
[2019-01-10] MEDS: PANCREAZE (LIPASE 10,500U) CAP PO SCH ×2 (10:46→17:18)
[2019-01-10] MEDS ORDERED: PANCREAZE (LIPASE 10,500U) CAP PO PRN (12:00)
--- NOTE | 2019-01-10 12:22 | Pharmacy Report ---
Pharmacy Abx Dose Short Note - Date of Service January 10, 2019 - Assessment & Plan A/P Pt is a 43yo F being worked up for endocarditis. She failed a course of augmentin. Pt's population p'kinetics: t1/2=7.7hrs, ke=0.0891. BC and LP both pending. ECHO is ordered. Vancomycin 1500mg (19mg/kg) given in the ER then Vancomycin 1250mg (15.6mg/kg) q8 set to start this evening at 1600 goal trough for r/o endo will be 15-20mcg/mL Trough ordered for 01/11/19, not reflective of css Zosyn Appropriately dosed based on clinical status and eCrCl>20cc/min Pharmacy will continue to follow and will adjust dose/frequency as necessary. Thank you.
[2019-01-10] MEDS: VANCOMYCIN HCL 1,250 MG in SODIUM CHLORIDE 0.9% 250 ML IV SCH ×2 (15:18→23:29)
[2019-01-10] MEDS: PIPERACILLIN/TAZOBACTAM 3.375 GM in DEXTROSE 5% 100 ML IV SCH (15:18)
--- NOTE | 2019-01-10 15:36 | Cardiology Consultation ---
Date of Consultation January 10, 2019 Assessment & Plan (1) Heart murmur: Cardiology was consulted for reported new onset heart murmur with concern for endocarditis. Evaluate the patient was negative for concerning signs or symptoms of endocarditis specifically the patient did not have echocardiographic evidence, no arterial emboli, no pulmonary aneurysms, no intracranial bleed, no Jan[place]ay lesions, patient's kidney function appears to be intact, negative also notes, negative raw spots, blood cultures are still pending. On cardiac auscultation the patient did not have a significant murmur, there was a questionable noise appreciated on auscultation, differential diagnosis for this is grade 1 out of 6 heart murmur, fixed splitting, or transmitted wheezing during cardiac auscultation. Patient's chest x-ray was negative for cardiac pathology, EKG was negative as well. The patient's laboratory findings did demonstrate a white count with neutrophilic predominance, and an elevated procalcitonin. Based on subjective and physical exam findings, endocarditis is unlikely however given her laboratory findings suggestive of a bacterial infection it cannot be entirely ruled out. Follow-up blood cultures specifically looking for strep viridans/pelvis,HACEK organisms, staph, ideally these blood culture should have been obtained 12 hours apart. If blood cultures are positive for typical infective endocarditis organisms would treat empirically As stated above the patient's physical exam findings are not consistent with infective endocarditis, however there is a concern for an underlying smoldering malignancy, or infection. Could consider DuoNeb's for wheezing and reevaluation of cardiac auscultation to see if murmur is no longer present Thank you for allowing us to participate this patient's care, we will continue to follow her progress. Feel free to contact us with any further questions or concerns. Supervising Physician Co-Signing Physician Notes I saw and examined the patient at the bedside with Dr. Klein and agree with the documentation. Briefly, the patient presented with a syndrome consistent with infection. She has several subjective and objective markers of infection. The nature of her infection or the source is unclear at this time. There was some concern regarding endocarditis given her history of intravenous drug abuse and a reported murmur on examination. However, there does not appear to be any definite evidence of endocarditis at this point. Think we will monitor her blood cultures for evidence of bacteremia. She is being evaluated for other possible causes of infection. History of Present Illness Reason for Consultation: Concern for endocarditis Attending Physician: Gurmeet Maher History of Present Illness The patient is a 43-year-old female with a past medical history of depression, chronic pain, benzodiazepine and illicit drug abuse, obesity status post gastric bypass, colon cancer, anemia, polycystic kidney disease who was admitted from the emergency department for symptoms of nausea, Rigors, sweating which started approximately 1 AM on 01/10. Patient has a history of IV drug abuse and per admitting provider a new onset murmur. The cardiology service was consulted to evaluate the new onset murmur and given the patient's history of IV drug abuse evaluate her for endocarditis. Upon examination today the patient was sitting upright in bed in no acute distress. Patient the patient reported a story similar to the one described above. Patient denies any cardiac history, recent chest pain, recent chest pressure, shortness of breath, significant indigestion, pain in the left side of her arm, or other signs or symptoms concerning for ACS. Patient states she is able to lie flat at night and does not experience significant pedal edema. Patient does look slightly pale on physical examination, however is negative for nailbed splinter hemorrhages, Osler nodes, Other vascular phenomena or fever. She had a negative echo this morning, micro lab results are still pending. CSF culture obtained was negative on Gram stain. Somewhat surprisingly the patient did have an elevated procalcitonin to 5 and white blood cell count with neutrophil predominance. Of note patient does endorse a recent 30 pound weight loss with con commitant malaise and fatigue. She also states she has chronic and abdominal pain secondary to ex lap/partial gastrectomy. Additionally the patient does have a history of factitious disorder which is treated with psych meds. Patient has a family history that is positive for both colon and breast cancer. Patient states she was evaluated for similar symptoms approximately 2 weeks ago and completed a 10-day course of Augmentin. Patient denies any urinary frequency or other UTI symptoms. Patient denies wheezing, chest tightness, shortness of breath. Patient denies vision changes patient denies hearing changes, patient denies change in bowel or bladder habit. Allergies Allergy/AdvReac Type Severity Reaction Status Date / Time morphine Allergy Severe TONGUE Verified 01/10/19 06:37 SWELLING, difficulty breathing/wheezing colestipol Allergy Intermediate red rash Verified 01/10/19 06:37 (no itching) cat dander Allergy Unknown ITCHY Verified 01/10/19 06:37 WATERY EYES nut - unspecified Allergy Unknown skin test Verified 01/10/19 06:37 showed nut allergy scopolamine AdvReac Severe Seizure Verified 01/10/19 06:37 promethazine AdvReac Intermediate "CAN'T SIT Verified 01/10/19 06:37 STILL" bupropion AdvReac Unknown Seizure Verified 01/10/19 06:37 Home Medications Home Medications Medication Instructions Recorded Confirmed Type calcium carbonate-vitamin D3 1 tab PO BID 05/19/18 01/10/19 History [Calcium 500 + D] cholecalciferol (vitamin D3) 50,000 unit PO 2XWK 05/19/18 01/10/19 History triamcinolone acetonide 1 applic TOPICAL DAILY PRN 05/19/18 01/10/19 History vitamin A 20,000 unit PO DAILY 05/19/18 01/10/19 History cyanocobalamin (vitamin B-12) 1,000 mcg IM WK 09/01/18 01/10/19 History iujynw-iymfjnpe-ilynfyx [Creon] 1 cap PO . WITH SNACKS 09/01/18 01/10/19 History butzks-owqmoymc-wtocero [Creon] 2 cap PO AC 09/01/18 01/10/19 History mirtazapine [Remeron] 30 mg PO HS 09/01/18 01/10/19 History ondansetron HCl [Zofran] 8 mg PO TID PRN 09/01/18 01/10/19 History paroxetine HCl [Paxil] 20 mg PO QAM 09/01/18 01/10/19 History valacyclovir 1,000 mg PO DAILY 09/01/18 01/10/19 History acetaminophen 500 mg tablet 1,000 mg PO Q4 PRN tab 01/09/19 01/10/19 History pantoprazole 40 mg tablet,delayed 40 mg PO DAILY tab 01/09/19 01/10/19 History release gabapentin 300 mg PO TID 01/10/19 01/10/19 History pedi multivitamin no.79-iron 1 tab PO BID 01/10/19 01/10/19 History [Flintstones with Iron] Patient History Medical History Colon cancer Chronic anemia (Chronic) Postgastric surgery syndrome (Chronic Unknown) Polycystic kidney disease, adult type (Chronic Unknown) Agoraphobia (Chronic Unknown) H/O drug abuse (Chronic) "heroin, alcohol, opiates, cocaine, benzo's" On 10/21/15 11:53 Felicita Lujan wrote "heroin, alcohol " History of esophageal dilatation (Chronic) "2009" Tubal ligation evaluation (Chronic) Epigastric abdominal pain (Acute) Abdominal pain Shortness of breath (Acute) Chest pain (Acute) Midsternal chest pain (Acute) Syncope (Acute) Vomiting (Acute) Ileus Heavy menstrual bleeding Rash and nonspecific skin eruption (Acute) Swelling of lower extremity (Acute) Headache (Acute) Facial rash (Acute) Hypertension (Acute) Obesity Chronic pelvic pain in female Nausea vomiting and diarrhea (Acute) Allergic reaction (Acute) Benzodiazepine abuse (Acute) Dehydration (Acute) Depression (Acute) Diarrhea (Acute) Factitious disorder Noncompliance with medication regimen (Acute) Opiate addiction Seizure disorder (Chronic) Suicidal ideation (Acute) Surgical History H/O wisdom tooth extraction (Chronic) H/O gastric bypass (Chronic) S/P cholecystectomy (Chronic) H/O exploratory laparotomy (Chronic) "2009, 2010, 2012" H/O colonoscopy (Chronic) S/P panniculectomy (Chronic) "2010" H/O ventral hernia repair (Chronic) H/O esophagogastroduodenoscopy (Chronic) S/P endometrial ablation (Chronic) S/P partial gastrectomy (Chronic) S/P laparoscopic hysterectomy Status post unilateral salpingo-oophorectomy Family History Father Colorectal cancer Myocardial infarction Other Colon cancer Diabetes Gallbladder disease Heart disease Hypertension Lung disease Social History Preferred Language: Swedish Communication Ability: Effective Beliefs That Will Affect Care: None marital status: Current Living Situation: Family and Significant Other Current Living Situation Comment: lives with friend/significant other current occupational status: employed Feels Safe at Home: Yes Smoking Status: Never smoker Second Hand Exposure: No Hx Alcohol Use: No Hx Substance Use: Yes (history) substance use type: opiates Review of Systems Review of Systems: All systems reviewed & are unremarkable except as noted in HPI & below Physical Exam Physical Exam: General: Overweight female in no acute distress, pale appearing HEENT: Normocephalic atraumatic visual hubbard intact bilaterally Neck: Trachea midline, normal to visual inspection, negative JVD Cardiac: Regular rate and rhythm, questionable murmur versus fixed splitting S2 versus wheezing transmitted during auscultation of the heart sounds, regardless this is a very very very faint noise grade 1 out of 6. Negative rubs negative gallops, normal S1 normal S2, negative pedal edema, negative calf tenderness Respiratory: Bilateral wheezing louder in the superior lung hubbard, negative rales negative rhonchi, symmetrical chest rise, no increased work of breathing GI: Normal bowel sounds, soft, nontender, nondistended MSK: Moves all extremities Skin: No new rashes, I removed the patient's socks to look for signs of cellulitis on her feet there were none Neuro: Alert and oriented x4 Psych: Calm, cooperative Results & Data Vital Signs (Past 12 Hours) Vital Signs Temp Pulse Pulse Resp BP BP Pulse Ox 01/10/19 11:24 36.6 C 78 18 101/64 96 01/10/19 09:31 84 21 128/65 94 01/10/19 09:18 90 24 131/76 95 01/10/19 09:00 82 25 H 144/67 H 94 01/10/19 08:46 91 H 23 121/62 95 01/10/19 08:31 88 19 141/79 H 95 01/10/19 08:16 84 24 128/69 95 01/10/19 08:06 37.0 C 01/10/19 08:05 36.8 C 85 120/75 95 01/10/19 08:04 82 17 138/71 94 01/10/19 08:00 74 01/10/19 07:46 92 H 20 124/72 96 01/10/19 07:38 88 20 138/78 95 01/10/19 07:17 96 H 18 148/97 H 96 01/10/19 07:09 99 H 15 141/79 H 95 01/10/19 06:48 95 01/10/19 06:41 38.4 C H 102 H 20 131/75 95 Pulse Ox 01/10/19 11:24 01/10/19 09:31 01/10/19 09:18 01/10/19 09:00 01/10/19 08:46 01/10/19 08:31 01/10/19 08:16 01/10/19 08:06 01/10/19 08:05 95 01/10/19 08:04 01/10/19 08:00 01/10/19 07:46 01/10/19 07:38 01/10/19 07:17 01/10/19 07:09 01/10/19 06:48 01/10/19 06:41 Laboratory Results 01/10/19 01/10/19 01/10/19 Range/Units 07:59 07:59 07:59 WBC (4.8-10.8) K/uL RBC (4.2-5.4) M/uL Hgb (12.0-16.0) g/dL POC Hgb (12.0-16.0) g/dl Hct (37-47) % POC Hct (37-47) % MCV (80-100) fL MCH (25-34) pg MCHC (32-36) g/dL RDW Std Deviation (36.4-46.3) fL RDW Coeff of Eliel (11.5-14.5) % Plt Count (130-400) K/uL MPV (7.4-10.4) fL Immature Gran % (Auto) % Neut % (Auto) % Lymph % (Auto) % Randolph % (Auto) % Eos % (Auto) % Baso % (Auto) % Immature Gran # (Auto) (0.00-0.02) K/uL Neut # (Auto) (1.4-6.5) K/uL Lymph # (Auto) (1.2-3.4) K/uL Randolph # (Auto) (0.11-0.59) K/uL Eos # (Auto) (0-0.5) K/uL Baso # (Auto) (0-0.2) K/uL PT (9.0-12.0) Seconds INR (0.9-1.1) APTT (21.0-31.0) Seconds PTT Ratio POC Sodium (135-144) mEq/L Sodium (136-145) mmol/L POC Potassium (3.3-5.0) mEq/L Potassium (3.5-5.1) mmol/L POC Chloride (101-112) mEq/L Chloride (98-107) mmol/L Carbon Dioxide (21-32) mmol/L POC Total CO2 (24-31) mEq/l Anion Gap (3-11) POC Anion Gap (16-25) mmol/L POC BUN (7-18) mg/dl BUN (7-18) mg/dl Creatinine (0.6-1.2) mg/dl POC Creatinine (0.6-1.3) mg/dl Est Cr Clr Drug Dosing ml/min Est GFR ( Amer) Est GFR (Non-Af Amer) BUN/Creatinine Ratio (10-20) Glucose (70-99) mg/dl POC Glucose (other) (70-99) mg/dl POC Lactic Acid Sergio (0.90-1.70) mmol/L Calcium (8.5-10.1) mg/dl POC Ioniz Calcium Zuleika (1.12-1.32) mmol/l Total Bilirubin (0.2-1) mg/dl AST (15-37) U/L ALT (12-78) U/L Alkaline Phosphatase (45-117) U/L Total Creatine Kinase (26-192) U/L CK-MB (CK-2) (0.5-3.6) ng/ml CK/CKMB % Calc Troponin I (0-0.045) ng/ml Total Protein (6.4-8.2) gm/dl Albumin (3.4-5.0) gm/dl Globulin (2.5-4.0) gm/dl Albumin/Globulin Ratio (0.9-2) Procalcitonin (0-0.5) ng/ml Urine Color Urine Appearance (Clear) Urine pH (4.5-7.5) Ur Specific Knox (1.000-1.030) Urine Protein (Negative) Urine Glucose (UA) (Negative) Urine Ketones (Negative) Urine Blood (Negative) Urine Nitrite (Negative) Urine Bilirubin (Negative) Urine Urobilinogen (Negative) Ur Leukocyte Esterase (Negative) CSF Appearance Clear CSF Color Colorless Xanthrochromic No xanthochromia CSF WBC 1 (0-5) /uL CSF RBC 1 (0-) /uL CSF Cell Count Tube # 3 CSF Chemistry Tube # 1 CSF Glucose 76 H (40-70) mg/dl CSF Total Protein 26.9 (15-45) mg/dl A. phagocytophilum IgG A. phagocytophilum IgM A. phagocytophilum DNA A.phagocytophilum Intrp A. phagocytophilum Cmmt Lyme Disease IgG Ab (Negative) Lyme Disease IgM Ab (Negative) E. chaffeensis IgG Ab E. chaffeensis IgM Ab E. chaffeensis Interp E. chaffeensis Comment Influenza Type A (PCR) (Neg) Influenza Type B (PCR) (Neg) 01/10/19 01/10/19 01/10/19 Range/Units 07:40 07:07 07:03 WBC (4.8-10.8) K/uL RBC (4.2-5.4) M/uL Hgb (12.0-16.0) g/dL POC Hgb 12.6 (12.0-16.0) g/dl Hct (37-47) % POC Hct 37 (37-47) % MCV (80-100) fL MCH (25-34) pg MCHC (32-36) g/dL RDW Std Deviation (36.4-46.3) fL RDW Coeff of Eliel (11.5-14.5) % Plt Count (130-400) K/uL MPV (7.4-10.4) fL Immature Gran % (Auto) % Neut % (Auto) % Lymph % (Auto) % Randolph % (Auto) % Eos % (Auto) % Baso % (Auto) % Immature Gran # (Auto) (0.00-0.02) K/uL Neut # (Auto) (1.4-6.5) K/uL Lymph # (Auto) (1.2-3.4) K/uL Randolph # (Auto) (0.11-0.59) K/uL Eos # (Auto) (0-0.5) K/uL Baso # (Auto) (0-0.2) K/uL PT (9.0-12.0) Seconds INR (0.9-1.1) APTT (21.0-31.0) Seconds PTT Ratio POC Sodium 138 (135-144) mEq/L Sodium (136-145) mmol/L POC Potassium 3.6 (3.3-5.0) mEq/L Potassium (3.5-5.1) mmol/L POC Chloride 104 (101-112) mEq/L Chloride (98-107) mmol/L Carbon Dioxide (21-32) mmol/L POC Total CO2 21 L (24-31) mEq/l Anion Gap (3-11) POC Anion Gap 18.0 (16-25) mmol/L POC BUN 6 L (7-18) mg/dl BUN (7-18) mg/dl Creatinine (0.6-1.2) mg/dl POC Creatinine 0.6 (0.6-1.3) mg/dl Est Cr Clr Drug Dosing ml/min Est GFR ( Amer) Est GFR (Non-Af Amer) BUN/Creatinine Ratio (10-20) Glucose (70-99) mg/dl POC Glucose (other) 131 H (70-99) mg/dl POC Lactic Acid Sergio 1.83 H (0.90-1.70) mmol/L Calcium (8.5-10.1) mg/dl POC Ioniz Calcium Zuleika 1.16 (1.12-1.32) mmol/l Total Bilirubin (0.2-1) mg/dl AST (15-37) U/L ALT (12-78) U/L Alkaline Phosphatase (45-117) U/L Total Creatine Kinase (26-192) U/L CK-MB (CK-2) (0.5-3.6) ng/ml CK/CKMB % Calc Troponin I (0-0.045) ng/ml Total Protein (6.4-8.2) gm/dl Albumin (3.4-5.0) gm/dl Globulin (2.5-4.0) gm/dl Albumin/Globulin Ratio (0.9-2) Procalcitonin (0-0.5) ng/ml Urine Color Yellow Urine Appearance Clear (Clear) Urine pH 5.0 (4.5-7.5) Ur Specific Knox 1.017 (1.000-1.030) Urine Protein Negative (Negative) Urine Glucose (UA) Negative (Negative) Urine Ketones Negative (Negative) Urine Blood Negative (Negative) Urine Nitrite Negative (Negative) Urine Bilirubin Negative (Negative) Urine Urobilinogen Negative (Negative) Ur Leukocyte Esterase Negative (Negative) CSF Appearance CSF Color Xanthrochromic CSF WBC (0-5) /uL CSF RBC (0-) /uL CSF Cell Count Tube # CSF Chemistry Tube # CSF Glucose (40-70) mg/dl CSF Total Protein (15-45) mg/dl A. phagocytophilum IgG A. phagocytophilum IgM A. phagocytophilum DNA A.phagocytophilum Intrp A. phagocytophilum Cmmt Lyme Disease IgG Ab (Negative) Lyme Disease IgM Ab (Negative) E. chaffeensis IgG Ab E. chaffeensis IgM Ab E. chaffeensis Interp E. chaffeensis Comment Influenza Type A (PCR) (Neg) Influenza Type B (PCR) (Neg) 01/10/19 01/10/19 01/10/19 Range/Units 07:00 07:00 07:00 WBC (4.8-10.8) K/uL RBC (4.2-5.4) M/uL Hgb (12.0-16.0) g/dL POC Hgb (12.0-16.0) g/dl Hct (37-47) % POC Hct (37-47) % MCV (80-100) fL MCH (25-34) pg MCHC (32-36) g/dL RDW Std Deviation (36.4-46.3) fL RDW Coeff of Eliel (11.5-14.5) % Plt Count (130-400) K/uL MPV (7.4-10.4) fL Immature Gran % (Auto) % Neut % (Auto) % Lymph % (Auto) % Randolph % (Auto) % Eos % (Auto) % Baso % (Auto) % Immature Gran # (Auto) (0.00-0.02) K/uL Neut # (Auto) (1.4-6.5) K/uL Lymph # (Auto) (1.2-3.4) K/uL Randolph # (Auto) (0.11-0.59) K/uL Eos # (Auto) (0-0.5) K/uL Baso # (Auto) (0-0.2) K/uL PT (9.0-12.0) Seconds INR (0.9-1.1) APTT (21.0-31.0) Seconds PTT Ratio POC Sodium (135-144) mEq/L Sodium 138 (136-145) mmol/L POC Potassium (3.3-5.0) mEq/L Potassium 3.6 (3.5-5.1) mmol/L POC Chloride (101-112) mEq/L Chloride 109 H (98-107) mmol/L Carbon Dioxide 23 (21-32) mmol/L POC Total CO2 (24-31) mEq/l Anion Gap 6.0 (3-11) POC Anion Gap (16-25) mmol/L POC BUN (7-18) mg/dl BUN 8 (7-18) mg/dl Creatinine 0.69 (0.6-1.2) mg/dl POC Creatinine (0.6-1.3) mg/dl Est Cr Clr Drug Dosing 101.7 ml/min Est GFR ( Amer) 122.7 Est GFR (Non-Af Amer) 105.9 BUN/Creatinine Ratio 11.8 (10-20) Glucose 125 H (70-99) mg/dl POC Glucose (other) (70-99) mg/dl POC Lactic Acid Sergio (0.90-1.70) mmol/L Calcium 8.4 L (8.5-10.1) mg/dl POC Ioniz Calcium Zuleika (1.12-1.32) mmol/l Total Bilirubin 0.3 (0.2-1) mg/dl AST 24 (15-37) U/L ALT 23 (12-78) U/L Alkaline Phosphatase 84 (45-117) U/L Total Creatine Kinase 109 (26-192) U/L CK-MB (CK-2) < 1.0 (0.5-3.6) ng/ml CK/CKMB % Calc TNP Troponin I < 0.015 (0-0.045) ng/ml Total Protein 6.6 (6.4-8.2) gm/dl Albumin 3.0 L (3.4-5.0) gm/dl Globulin 3.6 (2.5-4.0) gm/dl Albumin/Globulin Ratio 0.8 L (0.9-2) Procalcitonin 5.53 H (0-0.5) ng/ml Urine Color Urine Appearance (Clear) Urine pH (4.5-7.5) Ur Specific Knox (1.000-1.030) Urine Protein (Negative) Urine Glucose (UA) (Negative) Urine Ketones (Negative) Urine Blood (Negative) Urine Nitrite (Negative) Urine Bilirubin (Negative) Urine Urobilinogen (Negative) Ur Leukocyte Esterase (Negative) CSF Appearance CSF Color Xanthrochromic CSF WBC (0-5) /uL CSF RBC (0-) /uL CSF Cell Count Tube # CSF Chemistry Tube # CSF Glucose (40-70) mg/dl CSF Total Protein (15-45) mg/dl A. phagocytophilum IgG Pending A. phagocytophilum IgM Pending A. phagocytophilum DNA Pending A.phagocytophilum Intrp Pending A. phagocytophilum Cmmt Pending Lyme Disease IgG Ab Negative (Negative) Lyme Disease IgM Ab Negative (Negative) E. chaffeensis IgG Ab Pending E. chaffeensis IgM Ab Pending E. chaffeensis Interp Pending E. chaffeensis Comment Pending Influenza Type A (PCR) (Neg) Influenza Type B (PCR) (Neg) 01/10/19 01/10/19 01/10/19 Range/Units 07:00 07:00 06:50 WBC 12.10 H (4.8-10.8) K/uL RBC 3.62 L (4.2-5.4) M/uL Hgb 11.6 L (12.0-16.0) g/dL POC Hgb (12.0-16.0) g/dl Hct 35.4 L (37-47) % POC Hct (37-47) % MCV 97.8 (80-100) fL MCH 32.0 (25-34) pg MCHC 32.8 (32-36) g/dL RDW Std Deviation 47.6 H (36.4-46.3) fL RDW Coeff of Eliel 13.3 (11.5-14.5) % Plt Count 192 (130-400) K/uL MPV 9.1 (7.4-10.4) fL Immature Gran % (Auto) 0.2 % Neut % (Auto) 92.5 % Lymph % (Auto) 1.7 % Randolph % (Auto) 5.4 % Eos % (Auto) 0.2 % Baso % (Auto) 0.0 % Immature Gran # (Auto) 0.02 (0.00-0.02) K/uL Neut # (Auto) 11.21 H (1.4-6.5) K/uL Lymph # (Auto) 0.20 L (1.2-3.4) K/uL Randolph # (Auto) 0.65 H (0.11-0.59) K/uL Eos # (Auto) 0.02 (0-0.5) K/uL Baso # (Auto) 0.00 (0-0.2) K/uL PT 10.9 (9.0-12.0) Seconds INR 1.1 (0.9-1.1) APTT 25.4 (21.0-31.0) Seconds PTT Ratio 0.9 POC Sodium (135-144) mEq/L Sodium (136-145) mmol/L POC Potassium (3.3-5.0) mEq/L Potassium (3.5-5.1) mmol/L POC Chloride (101-112) mEq/L Chloride (98-107) mmol/L Carbon Dioxide (21-32) mmol/L POC Total CO2 (24-31) mEq/l Anion Gap (3-11) POC Anion Gap (16-25) mmol/L POC BUN (7-18) mg/dl BUN (7-18) mg/dl Creatinine (0.6-1.2) mg/dl POC Creatinine (0.6-1.3) mg/dl Est Cr Clr Drug Dosing ml/min Est GFR ( Amer) Est GFR (Non-Af Amer) BUN/Creatinine Ratio (10-20) Glucose (70-99) mg/dl POC Glucose (other) (70-99) mg/dl POC Lactic Acid Sergio (0.90-1.70) mmol/L Calcium (8.5-10.1) mg/dl POC Ioniz Calcium Zuleika (1.12-1.32) mmol/l Total Bilirubin (0.2-1) mg/dl AST (15-37) U/L ALT (12-78) U/L Alkaline Phosphatase (45-117) U/L Total Creatine Kinase (26-192) U/L CK-MB (CK-2) (0.5-3.6) ng/ml CK/CKMB % Calc Troponin I (0-0.045) ng/ml Total Protein (6.4-8.2) gm/dl Albumin (3.4-5.0) gm/dl Globulin (2.5-4.0) gm/dl Albumin/Globulin Ratio (0.9-2) Procalcitonin (0-0.5) ng/ml Urine Color Urine Appearance (Clear) Urine pH (4.5-7.5) Ur Specific Knox (1.000-1.030) Urine Protein (Negative) Urine Glucose (UA) (Negative) Urine Ketones (Negative) Urine Blood (Negative) Urine Nitrite (Negative) Urine Bilirubin (Negative) Urine Urobilinogen (Negative) Ur Leukocyte Esterase (Negative) CSF Appearance CSF Color Xanthrochromic CSF WBC (0-5) /uL CSF RBC (0-) /uL CSF Cell Count Tube # CSF Chemistry Tube # CSF Glucose (40-70) mg/dl CSF Total Protein (15-45) mg/dl A. phagocytophilum IgG A. phagocytophilum IgM A. phagocytophilum DNA A.phagocytophilum Intrp A. phagocytophilum Cmmt Lyme Disease IgG Ab (Negative) Lyme Disease IgM Ab (Negative) E. chaffeensis IgG Ab E. chaffeensis IgM Ab E. chaffeensis Interp E. chaffeensis Comment Influenza Type A (PCR) Neg for Influ A (Neg) Influenza Type B (PCR) Neg for Influ B (Neg) Medications Administered Current Inpatient Medications Acetaminophen (Tylenol) 650 mg PO Q4H PRN PRN Reason: Moderate Pain Stop: 02/09/19 08:52 Lipase/Protease/Amylase (Pancreaze (Lipase 10,500u)) 1 cap PO TIDM PRN PRN Reason: .SNACKS Stop: 02/09/19 11:59 Lipase/Protease/Amylase (Pancreaze (Lipase 10,500u)) 2 cap PO AC [facility] Stop: 02/09/19 11:29 Last Admin: 01/10/19 10:46 Dose: 2 cap Documented by: Cyanocobalamin (Vitamin B-12) 1,000 mcg IM Fr@0900 [facility] Stop: 02/10/19 08:59 Doxycycline Hyclate (Vibramycin) 100 mg PO BID [facility] Stop: 01/20/19 08:59 Last Admin: 01/10/19 10:37 Dose: 100 mg Documented by: Enoxaparin Sodium (Lovenox) 40 mg SQ Q24H [facility] Stop: 02/09/19 08:59 Last Admin: 01/10/19 10:43 Dose: 40 mg Documented by: Ergocalciferol (Vitamin D2) 50,000 units PO MoTh@0900 [facility] Stop: 02/09/19 08:59 Last Admin: 01/10/19 10:46 Dose: 50,000 units Documented by: Gabapentin (Neurontin) 300 mg PO TID [facility] Stop: 02/09/19 08:59 Last Admin: 01/10/19 13:48 Dose: 300 mg Documented by: Ceftriaxone Sodium 2,000 mg/ (Dextrose) 70 mls @ 100 mls/hr IV Q24H [facility]; Protocol Stop: 01/12/19 10:59 Last Infusion: 01/10/19 13:20 Dose: Infused Documented by: Vancomycin HCl 1,250 mg/ (Sodium Chloride) 275 mls @ 125 mls/hr IV Q8H [facility] Stop: 02/21/19 15:59 Last Admin: 01/10/19 15:18 Dose: 125 mls/hr Documented by: Piperacillin Sod/Tazobactam (Sod 3.375 gm/ Dextrose) 115 mls @ 28.75 mls/hr IV Q8H [facility]; Protocol Stop: 02/21/19 15:59 Last Admin: 01/10/19 15:18 Dose: 28.8 mls/hr Documented by: Mirtazapine (Remeron) 30 mg PO HS [facility] Stop: 02/09/19 20:59 Miscellaneous Information (Consult) 1 ea N/A UD PRN PRN Reason: Consult Stop: 02/09/19 07:23 Miscellaneous Information (Consult) 1 ea N/A UD PRN PRN Reason: Consult Stop: 02/09/19 08:52 Multivitamins/Folic Acid/Vitamin C (Flintstones Complete Chew Tab) 1 tab PO BID@ [facility] Stop: 02/09/19 19:59 Multivitamins/Minerals (Caltrate Plus) 1 tab PO BID@799,1999 [facility] Stop: 02/09/19 19:59 Ondansetron HCl (Zofran) 4 mg IV Q4H PRN PRN Reason: Nausea And Vomiting Stop: 02/09/19 08:52 Pantoprazole Sodium (Protonix) 40 mg PO DAILY [facility] Stop: 02/09/19 08:59 Last Admin: 01/10/19 10:38 Dose: 40 mg Documented by: Paroxetine HCl (Paxil) 20 mg PO QAM [facility] [facility] Stop: 02/09/19 08:59 Last Admin: 01/10/19 10:38 Dose: 20 mg Documented by: Triamcinolone Acetonide (Kenalog 0.025%) 1 appln TOP DAILY PRN PRN Reason: Unknown Stop: 02/09/19 08:55 Valacyclovir HCl (Valtrex) 1,000 mg PO DAILY [facility] Stop: 02/09/19 08:59 Last Admin: 01/10/19 10:45 Dose: 1,000 mg Documented by: Resident Activity Tracking Resident Involvement: Resident Care Provided Care Provided: Adult Hospital Medicine
[2019-01-10] MEDS: KETOROLAC 30 MG/ML VIAL IV PRN (18:36)
[2019-01-10] MEDS ORDERED: GADOBUTROL 65ML VIAL IV PRN (19:38)
--- NOTE | 2019-01-10 19:57 | Magnetic Resonance Report ---
MRI OF THE CERVICAL SPINE WITH AND WITHOUT CONTRAST CLINICAL HISTORY: fever, neck pain x 2 weeks; eval abscess, diskitis COMPARISON: None. TECHNIQUE: Utilizing a 1.5 Tiana magnet and dedicated coil, multiplanar, multiecho imaging of the ce rvical spine was performed before and after intravenous administration of 8 of Gadavist. FINDINGS: Alignment of the cervical spine is anatomic. Vertebral body heights are maintained. Cervical cord sig nal and caliber are normal. There is no intracanalicular mass, abnormal enhancement or fluid collecti on. There is no prevertebral edema. Paravertebral soft tissues are unremarkable. Mild multilevel dege nerative changes are present. No evidence for discitis. C2-C3: The central canal and neural foramen are patent. C3-C4: There is a tiny left paracentral disc protrusion. The central canal and neural foramen are pa tent. C4-C5: There is tiny central disc protrusion. Central canal and neural foramen are patent. C5-C6: There is mild disc space narrowing. The central canal and neural foramen are patent. C6-C7: The central canal and neural foramen are patent. C7-T1: The central canal and neural foramen are patent. IMPRESSION: 1. No acute process within the cervical spine. 2. Minimal multilevel degenerative disc disease, as described above. Patent central canal and neural foramen. Electronically signed by: Jose L Strong M.D. 01/10/2019 7:55 PM
[2019-01-10] MEDS: CALCIUM 600MG + VIT D 400 IU TAB PO SCH (20:12)
[2019-01-10] MEDS: MIRTAZAPINE TAB 15 MG TAB PO SCH (20:13)
[2019-01-10] MEDS: FLINTSTONES COMPLETE CHEWABLE TAB PO SCH (20:13)
[2019-01-11] MEDS: PIPERACILLIN/TAZOBACTAM 3.375 GM in DEXTROSE 5% 100 ML IV SCH ×2 (00:09→08:29)
[2019-01-11] MEDS: KETOROLAC 30 MG/ML VIAL IV PRN ×3 (01:28→14:38)
[2019-01-11] MEDS: ACETAMINOPHEN 325 MG TAB PO PRN ×2 (03:32→20:50)
[2019-01-11] MEDS: PANCREAZE (LIPASE 10,500U) CAP PO SCH ×3 (07:30→16:16)
[2019-01-11] MEDS ORDERED: VANCOMYCIN TROUGH ONE (07:30)
[2019-01-11 07:56] LABS: Hematocrit (blood only) 30.3 % (37-47); Hemoglobin 9.8 g/dL (12.0-16.0); Mean Corpuscular Hgb Conc 32.3 g/dL (32-36); Mean Platelet Volume 9.1 fL (7.4-10.4); Platelet Count 177 K/uL (130-400); RDW Coefficient of Variation 13.7 % (11.5-14.5); RDW Standard Deviation 49.2 fL (36.4-46.3); Red Blood Count 3.06 M/uL (4.2-5.4); White Blood Count 7.31 K/uL (4.8-10.8)
[2019-01-11] MEDS: DOXYCYCLINE HYCLATE 100 MG CAP PO SCH ×2 (08:27→20:46)
[2019-01-11] MEDS: FLINTSTONES COMPLETE CHEWABLE TAB PO SCH ×2 (08:28→20:48)
[2019-01-11] MEDS: ENOXAPARIN INJ 40 MG/0.4 ML SYR SQ SCH (08:28)
[2019-01-11] MEDS: CALCIUM 600MG + VIT D 400 IU TAB PO SCH ×2 (08:28→20:47)
[2019-01-11] MEDS: GABAPENTIN 300 MG CAP PO SCH ×3 (08:28→20:47)
[2019-01-11] MEDS: PANTOprazole 40 MG TAB PO SCH (08:28)
[2019-01-11] MEDS: VALACYCLOVIR HCL 500 MG TABLET PO SCH (08:28)
[2019-01-11] MEDS: PARoxetine HCl 20 MG TAB PO SCH (08:28)
[2019-01-11] MEDS: VANCOMYCIN HCL 1,250 MG in SODIUM CHLORIDE 0.9% 250 ML IV SCH ×3 (08:29→23:43)
[2019-01-11 08:30] LABS: Albumin Globulin Ratio 0.7 (0.9-2); Albumin Level 2.3 gm/dl (3.4-5.0); BUN Creatinine Ratio 15.5 (10-20); Bilirubin,Total 0.3 mg/dl (0.2-1); Calcium 8.3 mg/dl (8.5-10.1); Creatinine Clr Calc Pharmacy 119.6 ml/min; Est GFR (African American) 129.2; Est GFR (Non-African American) 111.5; Globulin 3.2 gm/dl (2.5-4.0); Potassium 3.5 mmol/L (3.5-5.1); Total Protein 5.5 gm/dl (6.4-8.2)
[2019-01-11] MEDS ORDERED: CYANOCOBALAMIN 1000 MCG/ML VIAL IM SCH (09:00)
[2019-01-11] MEDS: cefTRIAXone SODIUM 2,000 MG in DEXTROSE 5% 50 ML IV SCH (11:09)
[2019-01-11] MEDS ORDERED: Nursing to Pharmacy Communication ONE (11:34)
--- NOTE | 2019-01-11 14:15 | Pharmacy Report ---
Pharmacy Abx Dose Short Note - Date of Service January 11, 2019 - Assessment & Plan Assessment 43 year old F receiving Vancomycin for treatment of Endocarditis. Day #2 of antimicrobial therapy. Trough Vancomycin level was drawn today after 2 maintenance doses of Vanco 1250 mg IV q8h. Level is not at steady-state. Plan Vancomycin * Trough level of 17.8 mcg/mL is therapeutic however not at steady state. * Continue dose Vancomycin 1250 mg IV q8h. * Goal trough level for Endocarditis: 18 to 20 mcg/mL * Trough Vanco ordered for: 01/12/19 before dose at 1600 after 4 more maintenance doses. Pharmacy will continue to follow and will adjust dose/frequency as necessary. Thank you.
--- NOTE | 2019-01-11 15:04 | Emergency Department Note ---
Entered by Latoya Vela acting as a scribe for Isaac Berry MD History of Present Illness General Chief complaint: Fever Stated complaint: BODY ACHES/FEVER Time Seen by Provider: 01/10/19 06:37 Source: patient History of Present Illness Provider complaint: Fever Onset (ago): hour(s) 6 Pain Consistency: + other (Episode) Maximum Pain Intensity: 5 Quality: + other (Fever) Associated symptoms: + denies other symptoms (Abdominal pain), + fever/chills, + headaches and + other (Full body aches, dry heaving) Treatments prior to arrival: NSAID (Tylenol) and other (Zofran) The patient is a 43 year old female who presents to the ED with complaints of an episode of a fever that began approximately 6 hours ago. The patient states that she has a pounding headache, chills, fever and full body aches. The patient notes that she took Tylenol at 0130 and 0530 and Zofran at 0130. The patient states that she has been dry heaving since 0130. The patient denies abdominal pain. Home Medications Home Medications Medication Instructions Recorded Confirmed Type calcium carbonate-vitamin D3 1 tab PO BID 05/19/18 01/10/19 History [Calcium 500 + D] cholecalciferol (vitamin D3) 50,000 unit PO 2XWK 05/19/18 01/10/19 History triamcinolone acetonide 1 applic TOPICAL DAILY PRN 05/19/18 01/10/19 History vitamin A 20,000 unit PO DAILY 05/19/18 01/10/19 History cyanocobalamin (vitamin B-12) 1,000 mcg IM WK 09/01/18 01/10/19 History dgjqbu-egfdryat-bpkjlha [Creon] 1 cap PO . WITH SNACKS 09/01/18 01/10/19 History azcxjd-ryosoehe-giarxsp [Creon] 2 cap PO AC 09/01/18 01/10/19 History mirtazapine [Remeron] 30 mg PO HS 09/01/18 01/10/19 History ondansetron HCl [Zofran] 8 mg PO TID PRN 09/01/18 01/10/19 History paroxetine HCl [Paxil] 20 mg PO QAM 09/01/18 01/10/19 History valacyclovir 1,000 mg PO DAILY 09/01/18 01/10/19 History acetaminophen 500 mg tablet 1,000 mg PO Q4 PRN tab 01/09/19 01/10/19 History pantoprazole 40 mg tablet,delayed 40 mg PO DAILY tab 01/09/19 01/10/19 History release gabapentin 300 mg PO TID 01/10/19 01/10/19 History pedi multivitamin no.79-iron 1 tab PO BID 01/10/19 01/10/19 History [Flintstones with Iron] Allergies Allergy/AdvReac Type Severity Reaction Status Date / Time morphine Allergy Severe TONGUE Verified 01/10/19 06:37 SWELLING, difficulty breathing/wheezing colestipol Allergy Intermediate red rash Verified 01/10/19 06:37 (no itching) cat dander Allergy Unknown ITCHY Verified 01/10/19 06:37 WATERY EYES nut - unspecified Allergy Unknown skin test Verified 01/10/19 06:37 showed nut allergy scopolamine AdvReac Severe Seizure Verified 01/10/19 06:37 promethazine AdvReac Intermediate "CAN'T SIT Verified 01/10/19 06:37 STILL" bupropion AdvReac Unknown Seizure Verified 01/10/19 06:37 Past Med/Surg History Medical History Colon cancer Chronic anemia (Chronic) Postgastric surgery syndrome (Chronic Unknown) Polycystic kidney disease, adult type (Chronic Unknown) Agoraphobia (Chronic Unknown) H/O drug abuse (Chronic) "heroin, alcohol, opiates, cocaine, benzo's" On 10/21/15 11:53 Felicita Lujan wrote "heroin, alcohol " History of esophageal dilatation (Chronic) "2009" Tubal ligation evaluation (Chronic) Epigastric abdominal pain (Acute) Abdominal pain Shortness of breath (Acute) Chest pain (Acute) Midsternal chest pain (Acute) Syncope (Acute) Vomiting (Acute) Ileus Heavy menstrual bleeding Rash and nonspecific skin eruption (Acute) Swelling of lower extremity (Acute) Headache (Acute) Facial rash (Acute) Hypertension (Acute) Obesity Chronic pelvic pain in female Nausea vomiting and diarrhea (Acute) Allergic reaction (Acute) Benzodiazepine abuse (Acute) Dehydration (Acute) Depression (Acute) Diarrhea (Acute) Factitious disorder Noncompliance with medication regimen (Acute) Opiate addiction Seizure disorder (Chronic) Suicidal ideation (Acute) Surgical History H/O wisdom tooth extraction (Chronic) H/O gastric bypass (Chronic) S/P cholecystectomy (Chronic) H/O exploratory laparotomy (Chronic) "2009, 2010, 2012" H/O colonoscopy (Chronic) S/P panniculectomy (Chronic) "2010" H/O ventral hernia repair (Chronic) H/O esophagogastroduodenoscopy (Chronic) S/P endometrial ablation (Chronic) S/P partial gastrectomy (Chronic) S/P laparoscopic hysterectomy Status post unilateral salpingo-oophorectomy Family History Father Colorectal cancer Myocardial infarction Other Colon cancer Diabetes Gallbladder disease Heart disease Hypertension Lung disease Social History Preferred Language: Tongan Communication Ability: Effective Beliefs That Will Affect Care: None marital status: Current Living Situation: Family and Significant Other Current Living Situation Comment: lives with friend/significant other current occupational status: employed Feels Safe at Home: Yes Smoking Status: Never smoker Second Hand Exposure: No Hx Alcohol Use: No Hx Substance Use: Yes (history) substance use type: opiates Review of Systems See HPI for pertinent positives & negatives. and A total of 10 systems reviewed and were otherwise negative Physical Exam Vital Signs Vital Signs - 24 hr 01/10/19 06:41 01/10/19 06:48 01/10/19 07:09 Temperature 38.4 C H Temperature Source Oral Sepsis Recent Fever Within 48 Hours Yes Sepsis New/Unexplained Change in Mental Status No Sepsis Action Taken by Nursing No Action Required Pulse Rate 102 H 99 H Pulse Rate [Apical] Pulse Rate from SpO2 Sensor 99 H Pulse Rhythm [Apical] Pulse Strength [Apical] Respiratory Rate 20 15 Respiratory Effort / Characteristics Respiratory Depth Respiratory Pattern Blood Pressure 131/75 141/79 H Blood Pressure [Left Arm] Blood Pressure Mean 93 99 Blood Pressure Mean [Left Arm] Blood Pressure Position [Left Arm] Pulse Oximetry 95 95 95 Pulse Oximetry [Middle Finger] Oxygen Delivery Method Room Air Room Air Room Air Oxygen Delivery Method [Middle Finger] 01/10/19 07:17 01/10/19 07:38 01/10/19 07:46 Temperature Temperature Source Sepsis Recent Fever Within 48 Hours Sepsis New/Unexplained Change in Mental Status Sepsis Action Taken by Nursing Pulse Rate 96 H 88 92 H Pulse Rate [Apical] Pulse Rate from SpO2 Sensor 96 H 89 92 H Pulse Rhythm [Apical] Pulse Strength [Apical] Respiratory Rate 18 20 20 Respiratory Effort / Characteristics Respiratory Depth Respiratory Pattern Blood Pressure 148/97 H 138/78 124/72 Blood Pressure [Left Arm] Blood Pressure Mean 114 98 89 Blood Pressure Mean [Left Arm] Blood Pressure Position [Left Arm] Pulse Oximetry 96 95 96 Pulse Oximetry [Middle Finger] Oxygen Delivery Method Room Air Room Air Room Air Oxygen Delivery Method [Middle Finger] 01/10/19 08:00 01/10/19 08:04 01/10/19 08:05 Temperature 36.8 C Temperature Source Oral Sepsis Recent Fever Within 48 Hours Sepsis New/Unexplained Change in Mental Status Sepsis Action Taken by Nursing Pulse Rate 74 82 Pulse Rate [Apical] 85 Pulse Rate from SpO2 Sensor 82 Pulse Rhythm [Apical] Regular Pulse Strength [Apical] Normal Respiratory Rate 17 Respiratory Effort / Characteristics Non-Labored Spontaneous Respiratory Depth Normal Respiratory Pattern Regular Blood Pressure 138/71 Blood Pressure [Left Arm] 120/75 Blood Pressure Mean 93 Blood Pressure Mean [Left Arm] 90 Blood Pressure Position [Left Arm] Lying Pulse Oximetry 94 95 Pulse Oximetry [Middle Finger] 95 Oxygen Delivery Method Room Air Room Air Oxygen Delivery Method [Middle Finger] Room Air 01/10/19 08:06 01/10/19 08:16 01/10/19 08:24 Temperature 37.0 C Temperature Source Oral Sepsis Recent Fever Within 48 Hours Sepsis New/Unexplained Change in Mental Status Sepsis Action Taken by Nursing Pulse Rate 84 Pulse Rate [Apical] Pulse Rate from SpO2 Sensor 84 Pulse Rhythm [Apical] Pulse Strength [Apical] Respiratory Rate 24 Respiratory Effort / Characteristics Non-Labored Respiratory Depth Normal Respiratory Pattern Blood Pressure 128/69 Blood Pressure [Left Arm] Blood Pressure Mean 88 Blood Pressure Mean [Left Arm] Blood Pressure Position [Left Arm] Pulse Oximetry 95 Pulse Oximetry [Middle Finger] Oxygen Delivery Method Room Air Oxygen Delivery Method [Middle Finger] 01/10/19 08:31 01/10/19 08:46 Temperature Temperature Source Sepsis Recent Fever Within 48 Hours Sepsis New/Unexplained Change in Mental Status Sepsis Action Taken by Nursing Pulse Rate 88 91 H Pulse Rate [Apical] Pulse Rate from SpO2 Sensor 89 90 Pulse Rhythm [Apical] Pulse Strength [Apical] Respiratory Rate 19 23 Respiratory Effort / Characteristics Respiratory Depth Respiratory Pattern Blood Pressure 141/79 H 121/62 Blood Pressure [Left Arm] Blood Pressure Mean 99 81 Blood Pressure Mean [Left Arm] Blood Pressure Position [Left Arm] Pulse Oximetry 95 95 Pulse Oximetry [Middle Finger] Oxygen Delivery Method Room Air Oxygen Delivery Method [Middle Finger] GENERAL: Awake, alert, well-appearing, in no acute distress HENT: Normocephalic, atraumatic. Oropharynx unremarkable. EYES: Normal conjunctiva. Sclera non-icteric. NECK: Supple. No nuchal rigidity. FROM. No JVD. RESPIRATORY: Clear to auscultation. CARDIAC: Regular rate, normal rhythm. Extremities warm and well perfused. Pulses equal. 2/6 systolic murmur. ABDOMEN: Soft, non-distended. No tenderness to palpation. No rebound or g uarding. No masses. RECTAL: Deferred. MUSCULOSKELETAL: Chest examination reveals no tenderness. The back is symmetrical on inspection without obvious abnormality. There is no CVA tenderness to palpation. No joint edema. LOWER EXTREMITIES: Calves are equal size bilaterally and non-tender. No edema. N o discoloration. NEURO: Normal sensorium. No sensory or motor deficits noted. SKIN: No rash or jaundice noted. Procedures Lumbar Puncture Time Out Performed: Yes Patient Position: upright Skin Prep: Povidone-Iodine 1% Local Anesthetic: lidocaine 1% Amount of anesthesia used (mL): 10 Spinal Needle Gauge: 22G Interspace Used: L3-L4 Fluid Initially Obtained: clear Complications: none Course 0641: Past medical records reviewed. The patient was evaluated in room A3. A complete history and physical exam was performed. 0800: I discussed the patient's case with Porsche Moore PA-C. She will evaluate the patient for furher management. Administered Medications Acetaminophen (Tylenol) 650 mg PO Q4H PRN PRN Reason: Moderate Pain Stop: 02/09/19 08:52 Last Admin: 01/11/19 03:32 Dose: 650 mg Documented by: [id number] Lipase/Protease/Amylase (Pancreaze (Lipase 10,500u)) 2 cap PO AC MARGO Stop: 02/09/19 11:29 Last Admin: 01/11/19 11:30 Dose: 2 cap Documented by: [id number] Admin: 01/11/19 07:30 Dose: 2 cap Documented by: [id number] Admin: 01/10/19 17:18 Dose: 2 cap Documented by: [id number] Admin: 01/10/19 10:46 Dose: 2 cap Documented by: [id number] Cyanocobalamin (Vitamin B-12) 1,000 mcg IM Fr@0900 [facility] Stop: 02/10/19 08:59 Last Admin: 01/11/19 08:30 Dose: 1,000 mcg Documented by: [id number] Doxycycline Hyclate (Vibramycin) 100 mg PO BID [facility] Stop: 01/20/19 08:59 Last Admin: 01/11/19 08:27 Dose: 100 mg Documented by: [id number] Admin: 01/10/19 20:13 Dose: 100 mg Documented by: [id number] Admin: 01/10/19 10:37 Dose: 100 mg Documented by: [id number] Enoxaparin Sodium (Lovenox) 40 mg SQ Q24H [facility] Stop: 02/09/19 08:59 Last Admin: 01/11/19 08:28 Dose: 40 mg Documented by: [id number] Admin: 01/10/19 10:43 Dose: 40 mg Documented by: [id number] Ergocalciferol (Vitamin D2) 50,000 units PO MoTh@0900 [facility] Stop: 02/09/19 08:59 Last Admin: 01/10/19 10:46 Dose: 50,000 units Documented by: [id number] Gabapentin (Neurontin) 300 mg PO TID [facility] Stop: 02/09/19 08:59 Last Admin: 01/11/19 13:37 Dose: 300 mg Documented by: [id number] Admin: 01/11/19 08:28 Dose: 300 mg Documented by: [id number] Admin: 01/10/19 20:12 Dose: 300 mg Documented by: [id number] Admin: 01/10/19 13:48 Dose: 300 mg Documented by: [id number] Admin: 01/10/19 10:36 Dose: 300 mg Documented by: [id number] Gadobutrol (Gadavist 65ml) 8 ml IV ONCE PRN PRN Reason: Interaction Checking Stop: 01/14/19 19:37 Last Admin: 01/10/19 19:39 Dose: 8 ml Documented by: [id number] Ceftriaxone Sodium 2,000 mg/ (Dextrose) 70 mls @ 100 mls/hr IV Q24H MARGO; Protocol Stop: 01/12/19 10:59 Last Infusion: 01/11/19 12:29 Dose: 0 mls/hr Documented by: [id number] Admin: 01/11/19 11:09 Dose: 100 mls/hr Documented by: [id number] Infusion: 01/10/19 13:20 Dose: 0 mls/hr Documented by: [id number] Admin: 01/10/19 10:43 Dose: 100 mls/hr Documented by: [id number] Vancomycin HCl 1,250 mg/ (Sodium Chloride) 275 mls @ 125 mls/hr IV Q8H MARGO Stop: 02/21/19 15:59 Last Infusion: 01/11/19 10:48 Dose: 0 mls/hr Documented by: [id number] Admin: 01/11/19 08:29 Dose: 125 mls/hr Documented by: [id number] Infusion: 01/11/19 01:47 Dose: 0 mls/hr Documented by: [id number] Admin: 01/10/19 23:29 Dose: 125 mls/hr Documented by: [id number] Infusion: 01/10/19 17:30 Dose: 0 mls/hr Documented by: [id number] Admin: 01/10/19 15:18 Dose: 125 mls/hr Documented by: [id number] Ketorolac Tromethamine (Toradol) 30 mg IV Q6H PRN PRN Reason: Pain Stop: 01/15/19 17:34 Last Admin: 01/11/19 14:38 Dose: 30 mg Documented by: [id number] Admin: 01/11/19 08:27 Dose: 30 mg Documented by: [id number] Admin: 01/11/19 01:28 Dose: 30 mg Documented by: [id number] Admin: 01/10/19 18:36 Dose: 30 mg Documented by: [id number] Mirtazapine (Remeron) 30 mg PO HS [facility] Stop: 02/09/19 20:59 Last Admin: 01/10/19 20:13 Dose: 30 mg Documented by: [id number] Multivitamins/Folic Acid/Vitamin C (Flintstones Complete Chew Tab) 1 tab PO BID@0800,2000 [facility] Stop: 02/09/19 19:59 Last Admin: 01/11/19 08:28 Dose: 1 tab Documented by: [id number] Admin: 01/10/19 20:13 Dose: 1 tab Documented by: [id number] Multivitamins/Minerals (Caltrate Plus) 1 tab PO BID@0800,2000 [facility] Stop: 02/09/19 19:59 Last Admin: 01/11/19 08:28 Dose: 1 tab Documented by: [id number] Admin: 01/10/19 20:12 Dose: 1 tab Documented by: [id number] Pantoprazole Sodium (Protonix) 40 mg PO DAILY MARGO Stop: 02/09/19 08:59 Last Admin: 01/11/19 08:28 Dose: 40 mg Documented by: [id number] Admin: 01/10/19 10:38 Dose: 40 mg Documented by: [id number] Paroxetine HCl (Paxil) 20 mg PO QAM MARGO Stop: 02/09/19 08:59 Last Admin: 01/11/19 08:28 Dose: 20 mg Documented by: [id number] Admin: 01/10/19 10:38 Dose: 20 mg Documented by: [id number] Valacyclovir HCl (Valtrex) 1,000 mg PO DAILY MARGO Stop: 02/09/19 08:59 Last Admin: 01/11/19 08:28 Dose: 1,000 mg Documented by: [id number] Admin: 01/10/19 10:45 Dose: 1,000 mg Documented by: [id number] Discontinued Medications Diphenhydramine HCl (Benadryl) 50 mg IV NOW STA Stop: 01/10/19 06:47 Last Admin: 01/10/19 07:13 Dose: 50 mg Documented by: [id number] Magnesium Sulfate/Dextrose (Magnesium Sulfate / D5w) 1 gm in 100 mls @ 100 mls/hr IV ONE ONE Stop: 01/10/19 07:45 Last Infusion: 01/10/19 08:15 Dose: 0 mls/hr Documented by: [id number] Admin: 01/10/19 07:14 Dose: 100 mls/hr Documented by: [id number] Prochlorperazine (Compazine) 2 mls @ 1 mls/min IV ONE ONE Stop: 01/10/19 06:47 Last Admin: 01/10/19 07:13 Dose: 1 mls/min Documented by: [id number] Sodium Chloride (Nss 1000ml) 1,000 mls @ 999 mls/hr IV .Q1H1M ONE Stop: 01/10/19 07:48 Last Infusion: 01/10/19 08:15 Dose: 0 mls/hr Documented by: [id number] Admin: 01/10/19 07:13 Dose: 999 mls/hr Documented by: [id number] Levofloxacin/Dextrose (Levaquin/D5w) 750 mg in 150 mls @ 100 mls/hr IV NOW STA Stop: 01/10/19 08:53 Last Infusion: 01/10/19 09:48 Dose: 0 mls/hr Documented by: [id number] Admin: 01/10/19 08:12 Dose: 100 mls/hr Documented by: [id number] Sodium Chloride (Nss 1000ml) 1,000 mls @ 999 mls/hr IV .Q1H1M ONE Stop: 01/10/19 08:24 Last Infusion: 01/10/19 09:26 Dose: 0 mls/hr Documented by: [id number] Admin: 01/10/19 08:13 Dose: 999 mls/hr Documented by: [id number] Vancomycin HCl 1,500 mg/ (Sodium Chloride) 530 mls @ 200 mls/hr IV NOW ONE; Protocol Stop: 01/10/19 10:02 Last Infusion: 01/10/19 13:29 Dose: 0 mls/hr Documented by: [id number] Admin: 01/10/19 08:23 Dose: 200 mls/hr Documented by: [id number] Piperacillin Sod/Tazobactam Sod (Zosyn) 4.5 gm in 120 mls @ 240 mls/hr IV NOW ONE Stop: 01/10/19 07:53 Last Infusion: 01/10/19 08:07 Dose: 0 mls/hr Documented by: [id number] Admin: 01/10/19 07:35 Dose: 240 mls/hr Documented by: [id number] Sodium Chloride (Nss 1000ml) 500 mls @ 999 mls/hr IV .Q31M ONE Stop: 01/10/19 07:56 Last Infusion: 01/10/19 09:02 Dose: 0 mls/hr Documented by: [id number] Admin: 01/10/19 08:27 Dose: 999 mls/hr Documented by: [id number] Acetaminophen (Ofirmev) 1,000 mg in 100 mls @ 400 mls/hr IV NOW STA Stop: 01/10/19 08:19 Last Infusion: 01/10/19 08:25 Dose: 0 mls/hr Documented by: [id number] Admin: 01/10/19 08:10 Dose: 400 mls/hr Documented by: [id number] Piperacillin Sod/Tazobactam (Sod 3.375 gm/ Dextrose) 115 mls @ 28.75 mls/hr IV Q8H [facility]; Protocol Stop: 02/21/19 15:59 Last Infusion: 01/11/19 11:09 Dose: 0 mls/hr Documented by: [id number] Admin: 01/11/19 08:29 Dose: 28.8 mls/hr Documented by: [id number] Admin: 01/11/19 00:09 Dose: Not Given Documented by: [id number] Infusion: 01/10/19 19:20 Dose: 0 mls/hr Documented by: [id number] Admin: 01/10/19 15:18 Dose: 28.8 mls/hr Documented by: [id number] Ketorolac Tromethamine (Toradol) 30 mg IV NOW STA Stop: 01/10/19 06:47 Last Admin: 01/10/19 07:14 Dose: 30 mg Documented by: [id number] Lidocaine HCl (Xylocaine 1% (Local)) 20 ml INFIL NOW ONE Stop: 01/10/19 07:40 Last Admin: 01/10/19 07:45 Dose: 20 ml Documented by: [id number] Medical Decision Making Differential Diagnosis Differential diagnosis: Etiologies such as viral syndrome, otitis, pharyngitis, pneumonia, influenza, meningitis, urinary tract infection, septic arthritis, soft tissue infectious process, intra-abdominal process, sepsis, bacteremia, as well as others were entertained. Medical Records Attestation: I reviewed the patient's medical records. Home Medications Current Medication List: was personally reviewed by me Laboratory Data Attestation: I reviewed the patient's lab results. Result diagrams: 01/11/19 07:32 01/11/19 07:32 Lab Results 01/10/19 01/10/19 01/10/19 Range/Units 06:50 07:00 07:00 WBC 12.10 H (4.8-10.8) K/uL RBC 3.62 L (4.2-5.4) M/uL Hgb 11.6 L (12.0-16.0) g/dL POC Hgb (12.0-16.0) g/dl Hct 35.4 L (37-47) % POC Hct (37-47) % MCV 97.8 (80-100) fL MCH 32.0 (25-34) pg MCHC 32.8 (32-36) g/dL RDW Std Deviation 47.6 H (36.4-46.3) fL RDW Coeff of Eliel 13.3 (11.5-14.5) % Plt Count 192 (130-400) K/uL MPV 9.1 (7.4-10.4) fL Immature Gran % (Auto) 0.2 % Neut % (Auto) 92.5 % Lymph % (Auto) 1.7 % [place] % (Auto) 5.4 % Eos % (Auto) 0.2 % Baso % (Auto) 0.0 % Immature Gran # (Auto) 0.02 (0.00-0.02) K/uL Neut # (Auto) 11.21 H (1.4-6.5) K/uL Lymph # (Auto) 0.20 L (1.2-3.4) K/uL [place] # (Auto) 0.65 H (0.11-0.59) K/uL Eos # (Auto) 0.02 (0-0.5) K/uL Baso # (Auto) 0.00 (0-0.2) K/uL PT 10.9 (9.0-12.0) Seconds INR 1.1 (0.9-1.1) APTT 25.4 (21.0-31.0) Seconds PTT Ratio 0.9 POC Sodium (135-144) mEq/L Sodium (136-145) mmol/L POC Potassium (3.3-5.0) mEq/L Potassium (3.5-5.1) mmol/L POC Chloride (101-112) mEq/L Chloride (98-107) mmol/L Carbon Dioxide (21-32) mmol/L POC Total CO2 (24-31) mEq/l Anion Gap (3-11) POC Anion Gap (16-25) mmol/L POC BUN (7-18) mg/dl BUN (7-18) mg/dl Creatinine (0.6-1.2) mg/dl POC Creatinine (0.6-1.3) mg/dl Est Cr Clr Drug Dosing ml/min Est GFR ( Amer) Est GFR (Non-Af Amer) BUN/Creatinine Ratio (10-20) Glucose (70-99) mg/dl POC Glucose (other) (70-99) mg/dl POC Lactic Acid Sergio (0.90-1.70) mmol/L Calcium (8.5-10.1) mg/dl POC Ioniz Calcium [place] (1.12-1.32) mmol/l Total Bilirubin (0.2-1) mg/dl AST (15-37) U/L ALT (12-78) U/L Alkaline Phosphatase (45-117) U/L Total Creatine Kinase (26-192) U/L CK-MB (CK-2) (0.5-3.6) ng/ml CK/CKMB % Calc Troponin I (0-0.045) ng/ml Total Protein (6.4-8.2) gm/dl Albumin (3.4-5.0) gm/dl Globulin (2.5-4.0) gm/dl Albumin/Globulin Ratio (0.9-2) Procalcitonin (0-0.5) ng/ml Urine Color Urine Appearance (Clear) Urine pH (4.5-7.5) Ur Specific Lamar (1.000-1.030) Urine Protein (Negative) Urine Glucose (UA) (Negative) Urine Ketones (Negative) Urine Blood (Negative) Urine Nitrite (Negative) Urine Bilirubin (Negative) Urine Urobilinogen (Negative) Ur Leukocyte Esterase (Negative) CSF Appearance CSF Color Xanthrochromic CSF WBC (0-5) /uL CSF RBC (0-) /uL CSF Cell Count Tube # CSF Chemistry Tube # CSF Glucose (40-70) mg/dl CSF Total Protein (15-45) mg/dl Lyme Disease IgG Ab (Negative) Lyme Disease IgM Ab (Negative) Influenza Type A (PCR) Neg for Influ A (Neg) Influenza Type B (PCR) Neg for Influ B (Neg) 01/10/19 01/10/19 01/10/19 Range/Units 07:00 07:00 07:03 WBC (4.8-10.8) K/uL RBC (4.2-5.4) M/uL Hgb (12.0-16.0) g/dL POC Hgb (12.0-16.0) g/dl Hct (37-47) % POC Hct (37-47) % MCV (80-100) fL MCH (25-34) pg MCHC (32-36) g/dL RDW Std Deviation (36.4-46.3) fL RDW Coeff of Eliel (11.5-14.5) % Plt Count (130-400) K/uL MPV (7.4-10.4) fL Immature Gran % (Auto) % Neut % (Auto) % Lymph % (Auto) % [place] % (Auto) % Eos % (Auto) % Baso % (Auto) % Immature Gran # (Auto) (0.00-0.02) K/uL Neut # (Auto) (1.4-6.5) K/uL Lymph # (Auto) (1.2-3.4) K/uL [place] # (Auto) (0.11-0.59) K/uL Eos # (Auto) (0-0.5) K/uL Baso # (Auto) (0-0.2) K/uL PT (9.0-12.0) Seconds INR (0.9-1.1) APTT (21.0-31.0) Seconds PTT Ratio POC Sodium (135-144) mEq/L Sodium 138 (136-145) mmol/L POC Potassium (3.3-5.0) mEq/L Potassium 3.6 (3.5-5.1) mmol/L POC Chloride (101-112) mEq/L Chloride 109 H (98-107) mmol/L Carbon Dioxide 23 (21-32) mmol/L POC Total CO2 (24-31) mEq/l Anion Gap 6.0 (3-11) POC Anion Gap (16-25) mmol/L POC BUN (7-18) mg/dl BUN 8 (7-18) mg/dl Creatinine 0.69 (0.6-1.2) mg/dl POC Creatinine (0.6-1.3) mg/dl Est Cr Clr Drug Dosing 101.7 ml/min Est GFR ( Amer) 122.7 Est GFR (Non-Af Amer) 105.9 BUN/Creatinine Ratio 11.8 (10-20) Glucose 125 H (70-99) mg/dl POC Glucose (other) (70-99) mg/dl POC Lactic Acid Sergio 1.83 H (0.90-1.70) mmol/L Calcium 8.4 L (8.5-10.1) mg/dl POC Ioniz Calcium [place] (1.12-1.32) mmol/l Total Bilirubin 0.3 (0.2-1) mg/dl AST 24 (15-37) U/L ALT 23 (12-78) U/L Alkaline Phosphatase 84 (45-117) U/L Total Creatine Kinase 109 (26-192) U/L CK-MB (CK-2) < 1.0 (0.5-3.6) ng/ml CK/CKMB % Calc TNP Troponin I < 0.015 (0-0.045) ng/ml Total Protein 6.6 (6.4-8.2) gm/dl Albumin 3.0 L (3.4-5.0) gm/dl Globulin 3.6 (2.5-4.0) gm/dl Albumin/Globulin Ratio 0.8 L (0.9-2) Procalcitonin 5.53 H (0-0.5) ng/ml Urine Color Urine Appearance (Clear) Urine pH (4.5-7.5) Ur Specific [place] (1.000-1.030) Urine Protein (Negative) Urine Glucose (UA) (Negative) Urine Ketones (Negative) Urine Blood (Negative) Urine Nitrite (Negative) Urine Bilirubin (Negative) Urine Urobilinogen (Negative) Ur Leukocyte Esterase (Negative) CSF Appearance CSF Color Xanthrochromic CSF WBC (0-5) /uL CSF RBC (0-) /uL CSF Cell Count Tube # CSF Chemistry Tube # CSF Glucose (40-70) mg/dl CSF Total Protein (15-45) mg/dl Lyme Disease IgG Ab Negative (Negative) Lyme Disease IgM Ab Negative (Negative) Influenza Type A (PCR) (Neg) Influenza Type B (PCR) (Neg) 01/10/19 01/10/19 01/10/19 Range/Units 07:07 07:40 07:59 WBC (4.8-10.8) K/uL RBC (4.2-5.4) M/uL Hgb (12.0-16.0) g/dL POC Hgb 12.6 (12.0-16.0) g/dl Hct (37-47) % POC Hct 37 (37-47) % MCV (80-100) fL MCH (25-34) pg MCHC (32-36) g/dL RDW Std Deviation (36.4-46.3) fL RDW Coeff of Eliel (11.5-14.5) % Plt Count (130-400) K/uL MPV (7.4-10.4) fL Immature Gran % (Auto) % Neut % (Auto) % Lymph % (Auto) % [place] % (Auto) % Eos % (Auto) % Baso % (Auto) % Immature Gran # (Auto) (0.00-0.02) K/uL Neut # (Auto) (1.4-6.5) K/uL Lymph # (Auto) (1.2-3.4) K/uL [place] # (Auto) (0.11-0.59) K/uL Eos # (Auto) (0-0.5) K/uL Baso # (Auto) (0-0.2) K/uL PT (9.0-12.0) Seconds INR (0.9-1.1) APTT (21.0-31.0) Seconds PTT Ratio POC Sodium 138 (135-144) mEq/L Sodium (136-145) mmol/L POC Potassium 3.6 (3.3-5.0) mEq/L Potassium (3.5-5.1) mmol/L POC Chloride 104 (101-112) mEq/L Chloride (98-107) mmol/L Carbon Dioxide (21-32) mmol/L POC Total CO2 21 L (24-31) mEq/l Anion Gap (3-11) POC Anion Gap 18.0 (16-25) mmol/L POC BUN 6 L (7-18) mg/dl BUN (7-18) mg/dl Creatinine (0.6-1.2) mg/dl POC Creatinine 0.6 (0.6-1.3) mg/dl Est Cr Clr Drug Dosing ml/min Est GFR ( Amer) Est GFR (Non-Af Amer) BUN/Creatinine Ratio (10-20) Glucose (70-99) mg/dl POC Glucose (other) 131 H (70-99) mg/dl POC Lactic Acid Sergio (0.90-1.70) mmol/L Calcium (8.5-10.1) mg/dl POC Ioniz Calcium [place] 1.16 (1.12-1.32) mmol/l Total Bilirubin (0.2-1) mg/dl AST (15-37) U/L ALT (12-78) U/L Alkaline Phosphatase (45-117) U/L Total Creatine Kinase (26-192) U/L CK-MB (CK-2) (0.5-3.6) ng/ml CK/CKMB % Calc Troponin I (0-0.045) ng/ml Total Protein (6.4-8.2) gm/dl Albumin (3.4-5.0) gm/dl Globulin (2.5-4.0) gm/dl Albumin/Globulin Ratio (0.9-2) Procalcitonin (0-0.5) ng/ml Urine Color Yellow Urine Appearance Clear (Clear) Urine pH 5.0 (4.5-7.5) Ur Specific [place] 1.017 (1.000-1.030) Urine Protein Negative (Negative) Urine Glucose (UA) Negative (Negative) Urine Ketones Negative (Negative) Urine Blood Negative (Negative) Urine Nitrite Negative (Negative) Urine Bilirubin Negative (Negative) Urine Urobilinogen Negative (Negative) Ur Leukocyte Esterase Negative (Negative) CSF Appearance CSF Color Xanthrochromic CSF WBC (0-5) /uL CSF RBC (0-) /uL CSF Cell Count Tube # CSF Chemistry Tube # CSF Glucose (40-70) mg/dl CSF Total Protein 26.9 (15-45) mg/dl Lyme Disease IgG Ab (Negative) Lyme Disease IgM Ab (Negative) Influenza Type A (PCR) (Neg) Influenza Type B (PCR) (Neg) 01/10/19 01/10/19 Range/Units 07:59 07:59 WBC (4.8-10.8) K/uL RBC (4.2-5.4) M/uL Hgb (12.0-16.0) g/dL POC Hgb (12.0-16.0) g/dl Hct (37-47) % POC Hct (37-47) % MCV (80-100) fL MCH (25-34) pg MCHC (32-36) g/dL RDW Std Deviation (36.4-46.3) fL RDW Coeff of Eliel (11.5-14.5) % Plt Count (130-400) K/uL MPV (7.4-10.4) fL Immature Gran % (Auto) % Neut % (Auto) % Lymph % (Auto) % [place] % (Auto) % Eos % (Auto) % Baso % (Auto) % Immature Gran # (Auto) (0.00-0.02) K/uL Neut # (Auto) (1.4-6.5) K/uL Lymph # (Auto) (1.2-3.4) K/uL [place] # (Auto) (0.11-0.59) K/uL Eos # (Auto) (0-0.5) K/uL Baso # (Auto) (0-0.2) K/uL PT (9.0-12.0) Seconds INR (0.9-1.1) APTT (21.0-31.0) Seconds PTT Ratio POC Sodium (135-144) mEq/L Sodium (136-145) mmol/L POC Potassium (3.3-5.0) mEq/L Potassium (3.5-5.1) mmol/L POC Chloride (101-112) mEq/L Chloride (98-107) mmol/L Carbon Dioxide (21-32) mmol/L POC Total CO2 (24-31) mEq/l Anion Gap (3-11) POC Anion Gap (16-25) mmol/L POC BUN (7-18) mg/dl BUN (7-18) mg/dl Creatinine (0.6-1.2) mg/dl POC Creatinine (0.6-1.3) mg/dl Est Cr Clr Drug Dosing ml/min Est GFR ( Amer) Est GFR (Non-Af Amer) BUN/Creatinine Ratio (10-20) Glucose (70-99) mg/dl POC Glucose (other) (70-99) mg/dl POC Lactic Acid Sergio (0.90-1.70) mmol/L Calcium (8.5-10.1) mg/dl POC Ioniz Calcium [place] (1.12-1.32) mmol/l Total Bilirubin (0.2-1) mg/dl AST (15-37) U/L ALT (12-78) U/L Alkaline Phosphatase (45-117) U/L Total Creatine Kinase (26-192) U/L CK-MB (CK-2) (0.5-3.6) ng/ml CK/CKMB % Calc Troponin I (0-0.045) ng/ml Total Protein (6.4-8.2) gm/dl Albumin (3.4-5.0) gm/dl Globulin (2.5-4.0) gm/dl Albumin/Globulin Ratio (0.9-2) Procalcitonin (0-0.5) ng/ml Urine Color Urine Appearance (Clear) Urine pH (4.5-7.5) Ur Specific [place] (1.000-1.030) Urine Protein (Negative) Urine Glucose (UA) (Negative) Urine Ketones (Negative) Urine Blood (Negative) Urine Nitrite (Negative) Urine Bilirubin (Negative) Urine Urobilinogen (Negative) Ur Leukocyte Esterase (Negative) CSF Appearance Clear CSF Color Colorless Xanthrochromic No xanthochromia CSF WBC 1 (0-5) /uL CSF RBC 1 (0-) /uL CSF Cell Count Tube # 3 CSF Chemistry Tube # 1 CSF Glucose 76 H (40-70) mg/dl CSF Total Protein (15-45) mg/dl Lyme Disease IgG Ab (Negative) Lyme Disease IgM Ab (Negative) Influenza Type A (PCR) (Neg) Influenza Type B (PCR) (Neg) Imaging Data Radiologist's Impression: Radiology results as stated below per my review and the radiologist's interpretation: XR chest 1V portable CLINICAL HISTORY: Sepsis COMPARISON STUDY: 12/20/2018 FINDINGS: The cardiac and mediastinal contours are normal. There is no evidence of focal pulmonary consolidation. There is no evidence of failure. No pleural effusions are visualized.[ There is a left lower lung zone calcified granuloma. IMPRESSION: No active disease in the chest. Electronically signed by: Ernesto Black M.D. 01/10/2019 7:[address] head/brain wo con CT DOSE: 537.48 mGy.cm HISTORY: Mental status change Pt c/o headache TECHNIQUE: Multiaxial CT images of the head were performed without the use of intravenous contrast. A dose lowering technique was utilized adhering to the principles of ALARA. Comparison: 09/01/2018 Findings: The paranasal sinuses and mastoid air cells are clear. The calvarium and skull base are intact. The ventricles and sulci are within normal limits. There is no mass, hematoma, midline shift, or acute infarct. Impression: No acute intracranial abnormality. The above report was generated using voice recognition software. It may contain grammatical, syntax or spelling errors. Electronically signed by: Ganga Guzman M.D. 01/10/2019 7:35 AM ECG Data Attestation: I personally reviewed and interpreted this ECG as follows: Indication: other (fever) Rate (beats per minute): 101 Rhythm: sinus tachycardia Findings: + ST depression (lateral) Change: no significant change Blood Pressure Blood Pressure Findings: Normal blood pressure Blood Pressure Disposition: did not require urgent referral MDM Narrative This is a 43-year-old female who presents emergency department complaining of fever. The patient was recently diagnosed with a fever and placed on Augmentin however when the Augmentin prescription ended the patient's fever came back. She does have an elevation in her white blood cell count as well as her lactate. She was given normal saline bolus here and started on broad-spectrum antibiotics including Zosyn and daptomycin. I am concerned that the patient has a new onset heart murmur therefore did discuss the case with the hospitalist service who agreed to see the patient. Patient was in agreement with the treatment plan. Impression & Plan Heart murmur, Fever Discharge Plan Visit Data *Final* Discharge Date/Time: 01/10/19 09:38 Chief Complaint: Fever Stated Complaint: BODY ACHES/FEVER ED Provider: Isaac Berry Discharge Problem: Heart murmur, Fever Patient Disposition: Admitted As Inpatient Discharge Instructions Interventions: ED Discharge Assessment Last Done: 01/10/19 09:38 The scribe's documentation has been prepared under my direction and personally reviewed by me in its entirety. I confirm that the note above accurately reflects all work, treatment, procedures, and medical decision making performed by me.
--- NOTE | 2019-01-11 19:16 | Hospitalist Progress Note ---
Date of Service January 11, 2019 Assessment & Plan (1) Fever: Extensive w/u to date including cxr, u/a, urine cx, blood cx's, MRI c- spine w/ contrast, CSF cx, lyme's testing, CT head --- all normal/negative and w/o source of infection. No diskitis seen on MRI c-spine despite recent neck pain. Cont rocephin/vanco IV - if blood cx's neg x 48 hours then stop. Cont doxy to cover tick-borne diseases. In light of cervical LAD on exam - if blood cx's remain negative - consider checking EBV and CMV titers to be complete. Will likely recommend 14-day course of PO doxy at d/c while awaiting tickborne titers. In the end the recent fevers could be viral vs tick-borne. Non-infectious (malignancy, blood disorder, etc) less likely but low threshold for w/u for this if fevers recur. Present on Admission?: Yes (2) Heart murmur: echo reassuring benign no SBE seen cardiology consult appreciated Present on Admission?: Yes (3) Chronic anemia: check iron studies, folate in am recent b12 level robust (4) H/O drug abuse: none in 1+ years most recent tox screen negative (5) DVT prophylaxis: lovenox daily hopefully d/c home tomorrow can transfer to med/surg Subjective tele NSR overnight. patient "feels great." no fevers, chills, sweats. headache and neck pain resolved. no myalgias, arthralgias, joint swelling or rashes. no tooth pain. no sinus pain. no ear pain. no nausea, abd pain or emesis. diarrhea present but chronic. Review of Systems Constitutional: no fatigue and no anorexia Ear, Nose, Mouth, Throat: no nasal congestion Respiratory: no cough and no sputum production Cardiovascular: no chest pain Genitourinary: no dysuria Physical Exam Constitutional: well developed and well nourished; no acute distress and no altered mental status ENMT: external ear and nose normal, oropharynx normal Respiratory: normal respiratory effort, lungs clear to auscultation Cardiovascular: Rate/Rhythm: regular rate and regular rhythm Heart Sounds: normal S1, normal S2 and + murmur (1-2/6 LLSB) Vessels: posterior tibial pulses present and dorsalis pedis pulses present; no JVD Gastrointestinal (Abdomen): normal bowel sounds, soft, nontender, no hepatosplenomegaly Musculoskeletal: no cyanosis or clubbing, extremities motor strength 5/5 Skin: no rashes, warm and dry Psychiatric: A+Ox3, euthymic affect Lymphatic: + cervical lymphadenopathy (multiple cervical LAD, some about 1 to 1.5cm in size (post auricular L, etc) Results & Data Vital Signs (Past 12 Hours) Vital Signs Temp Pulse Resp BP BP Pulse Ox 01/11/19 15:27 36.6 C 67 18 125/80 96 01/11/19 13:36 36.5 C 70 18 132/87 98 01/11/19 11:01 36.5 C 66 18 133/84 97 01/11/19 07:47 36.6 C 62 18 130/83 97 Laboratory Results Laboratory Results - last 24 hr 01/11/19 01/11/19 01/11/19 07:32 07:32 07:32 WBC 7.31 RBC 3.06 L Hgb 9.8 L Hct 30.3 L MCV 99.0 MCH 32.0 MCHC 32.3 RDW Std Deviation 49.2 H RDW Coeff of Eliel 13.7 Plt Count 177 MPV 9.1 Sodium 146 H D Potassium 3.5 Chloride 115 H Carbon Dioxide 25 Anion Gap 6.0 BUN 9 Creatinine 0.59 L Est Cr Clr Drug Dosing 119.6 Est GFR ( Amer) 129.2 Est GFR (Non-Af Amer) 111.5 BUN/Creatinine Ratio 15.5 Glucose 82 Calcium 8.3 L Total Bilirubin 0.3 AST 31 ALT 26 Alkaline Phosphatase 69 Total Protein 5.5 L Albumin 2.3 L Globulin 3.2 Albumin/Globulin Ratio 0.7 L Stl C. diff Tox B Gene Vancomycin Trough 17.8 01/12/19 00:40 WBC RBC Hgb Hct MCV MCH MCHC RDW Std Deviation RDW Coeff of Eliel Plt Count MPV Sodium Potassium Chloride Carbon Dioxide Anion Gap BUN Creatinine Est Cr Clr Drug Dosing Est GFR ( Amer) Est GFR (Non-Af Amer) BUN/Creatinine Ratio Glucose Calcium Total Bilirubin AST ALT Alkaline Phosphatase Total Protein Albumin Globulin Albumin/Globulin Ratio Stl C. diff Tox B Gene Negative Cdiff Gene Vancomycin Trough Diagnostic Findings blood/CSF cx's neg PG Care Time/CCT Total # of Minutes Spent Total Time Spent with Patient: Total time spent is greater than 50% in coordination of care (as documented) at patient's floor/unit and/or counseling patient: (1) Fever Fever type: unspecified Qualified Code(s): R50.9 - Fever, unspecified
[2019-01-11] MEDS: MIRTAZAPINE TAB 15 MG TAB PO SCH (20:47)
[2019-01-12] MEDS: ACETAMINOPHEN 325 MG TAB PO PRN (04:23)
--- NOTE | 2019-01-12 07:02 | Emergency Department Note ---
Entered by Latoya Vela acting as a scribe for History of Present Illness General Chief complaint: Fever Stated complaint: BODY ACHES/FEVER Time Seen by Provider: 01/10/19 06:37 Source: patient History of Present Illness Provider complaint: Fever Onset (ago): hour(s) 6 Pain Consistency: + other (Episode) Quality: + other (Fever) Associated symptoms: + denies other symptoms (Abdominal pain), + fever/chills, + headaches and + other (Full body aches) Treatments prior to arrival: NSAID (Tylenol) and other (Zofran) The patient is a 43 year old female who presents to the ED with an episode of a fever that began approximately 6 hours ago. The patient states that she has a pounding headache, fever, chills and full body aches. The patient notes that she took Tylenol at 0130 and 0530 and Zofran at 0130. The patient states that she has been dry heaving since 0130. The patient denies abdominal pain. Home Medications Home Medications Medication Instructions Recorded Confirmed Type calcium carbonate-vitamin D3 1 tab PO BID 05/19/18 01/10/19 History [Calcium 500 + D] cholecalciferol (vitamin D3) 50,000 unit PO 2XWK 05/19/18 01/10/19 History triamcinolone acetonide 1 applic TOPICAL DAILY PRN 05/19/18 01/10/19 History vitamin A 20,000 unit PO DAILY 05/19/18 01/10/19 History cyanocobalamin (vitamin B-12) 1,000 mcg IM WK 09/01/18 01/10/19 History ejyine-nuummedz-jukejsq [Creon] 1 cap PO . WITH SNACKS 09/01/18 01/10/19 History pivqoe-qeesmkfo-cqfnzvt [Creon] 2 cap PO AC 09/01/18 01/10/19 History mirtazapine [Remeron] 30 mg PO HS 09/01/18 01/10/19 History ondansetron HCl [Zofran] 8 mg PO TID PRN 09/01/18 01/10/19 History paroxetine HCl [Paxil] 20 mg PO QAM 09/01/18 01/10/19 History valacyclovir 1,000 mg PO DAILY 09/01/18 01/10/19 History acetaminophen 500 mg tablet 1,000 mg PO Q4 PRN tab 01/09/19 01/10/19 History pantoprazole 40 mg tablet,delayed 40 mg PO DAILY tab 01/09/19 01/10/19 History release gabapentin 300 mg PO TID 01/10/19 01/10/19 History pedi multivitamin no.79-iron 1 tab PO BID 01/10/19 01/10/19 History [Flintstones with Iron] Allergies Allergy/AdvReac Type Severity Reaction Status Date / Time morphine Allergy Severe TONGUE Verified 01/10/19 06:37 SWELLING, difficulty breathing/wheezing colestipol Allergy Intermediate red rash Verified 01/10/19 06:37 (no itching) cat dander Allergy Unknown ITCHY Verified 01/10/19 06:37 WATERY EYES nut - unspecified Allergy Unknown skin test Verified 01/10/19 06:37 showed nut allergy scopolamine AdvReac Severe Seizure Verified 01/10/19 06:37 promethazine AdvReac Intermediate "CAN'T SIT Verified 01/10/19 06:37 STILL" bupropion AdvReac Unknown Seizure Verified 01/10/19 06:37 Past Med/Surg History Medical History Colon cancer Chronic anemia (Chronic) Postgastric surgery syndrome (Chronic Unknown) Polycystic kidney disease, adult type (Chronic Unknown) Agoraphobia (Chronic Unknown) H/O drug abuse (Chronic) "heroin, alcohol, opiates, cocaine, benzo's" On 10/21/15 11:53 Felicita Lujan wrote "heroin, alcohol " History of esophageal dilatation (Chronic) "2009" Tubal ligation evaluation (Chronic) Epigastric abdominal pain (Acute) Abdominal pain Shortness of breath (Acute) Chest pain (Acute) Midsternal chest pain (Acute) Syncope (Acute) Vomiting (Acute) Ileus Heavy menstrual bleeding Rash and nonspecific skin eruption (Acute) Swelling of lower extremity (Acute) Headache (Acute) Facial rash (Acute) Hypertension (Acute) Obesity Chronic pelvic pain in female Nausea vomiting and diarrhea (Acute) Allergic reaction (Acute) Benzodiazepine abuse (Acute) Dehydration (Acute) Depression (Acute) Diarrhea (Acute) Factitious disorder Noncompliance with medication regimen (Acute) Opiate addiction Seizure disorder (Chronic) Suicidal ideation (Acute) Surgical History H/O wisdom tooth extraction (Chronic) H/O gastric bypass (Chronic) S/P cholecystectomy (Chronic) H/O exploratory laparotomy (Chronic) "2009, 2010, 2012" H/O colonoscopy (Chronic) S/P panniculectomy (Chronic) "2010" H/O ventral hernia repair (Chronic) H/O esophagogastroduodenoscopy (Chronic) S/P endometrial ablation (Chronic) S/P partial gastrectomy (Chronic) S/P laparoscopic hysterectomy Status post unilateral salpingo-oophorectomy Family History Father Colorectal cancer Myocardial infarction Other Colon cancer Diabetes Gallbladder disease Heart disease Hypertension Lung disease Social History Preferred Language: Egyptian Communication Ability: Effective Beliefs That Will Affect Care: None marital status: Current Living Situation: Family and Significant Other Current Living Situation Comment: lives with friend/significant other current occupational status: employed Feels Safe at Home: Yes Smoking Status: Never smoker Second Hand Exposure: No Hx Alcohol Use: No Hx Substance Use: Yes (history) substance use type: opiates Review of Systems See HPI for pertinent positives & negatives. and A total of 10 systems reviewed and were otherwise negative Physical Exam Vital Signs Vital Signs - 24 hr 01/10/19 06:41 01/10/19 06:48 01/10/19 07:09 Temperature 38.4 C H Temperature Source Oral Sepsis Recent Fever Within 48 Hours Yes Sepsis New/Unexplained Change in Mental Status No Sepsis Action Taken by Nursing No Action Required Pulse Rate 102 H 99 H Pulse Rate from SpO2 Sensor 99 H Respiratory Rate 20 15 Blood Pressure 131/75 141/79 H Blood Pressure Mean 93 99 Pulse Oximetry 95 95 95 Oxygen Delivery Method Room Air Room Air Room Air 01/10/19 07:17 01/10/19 07:38 Temperature Temperature Source Sepsis Recent Fever Within 48 Hours Sepsis New/Unexplained Change in Mental Status Sepsis Action Taken by Nursing Pulse Rate 96 H 88 Pulse Rate from SpO2 Sensor 96 H 89 Respiratory Rate 18 20 Blood Pressure 148/97 H 138/78 Blood Pressure Mean 114 98 Pulse Oximetry 96 95 Oxygen Delivery Method Room Air Room Air GENERAL: Awake, alert, well-appearing, in no acute distress HENT: Normocephalic, atraumatic. Oropharynx unremarkable. EYES: Normal conjunctiva. Sclera non-icteric. NECK: Supple. No nuchal rigidity. FROM. No JVD. RESPIRATORY: Clear to auscultation. CARDIAC: Regular rate, normal rhythm. Extremities warm and well perfused. Pulses equal. 2/6 systolic murmur. ABDOMEN: Soft, non-distended. No tenderness to palpation. No rebound or guardi ng. No masses. RECTAL: Deferred. MUSCULOSKELETAL: Chest examination reveals no tenderness. The back is symmetrical on inspection without obvious abnormality. There is no CVA tenderness to palpation. No joint edema. LOWER EXTREMITIES: Calves are equal size bilaterally and non-tender. No edema. No discoloration. NEURO: Normal sensorium. No sensory or motor deficits noted. SKIN: No rash or jaundice noted. Procedures Lumbar Puncture Time Out Performed: Yes Patient Position: upright Skin Prep: Povidone-Iodine 1% Local Anesthetic: lidocaine 1% Amount of anesthesia used (mL): 10 Spinal Needle Gauge: 22G Interspace Used: L3-L4 Fluid Initially Obtained: clear Complications: none Course 0641: Past medical records reviewed. The patient was evaluated in room A3. A complete history and physical exam was performed. 0733: I discussed the patient's tests results with her. A lumbar puncture was performed at the this time. Administered Medications Acetaminophen (Tylenol) 650 mg PO Q4H PRN PRN Reason: Moderate Pain Stop: 02/09/19 08:52 Last Admin: 01/12/19 04:23 Dose: 650 mg Documented by: [id number] Admin: 01/11/19 20:50 Dose: 650 mg Documented by: [id number] Admin: 01/11/19 03:32 Dose: 650 mg Documented by: [id number] Lipase/Protease/Amylase (Pancreaze (Lipase 10,500u)) 2 cap PO AC MARGO Stop: 02/09/19 11:29 Last Admin: 01/11/19 16:16 Dose: 2 cap Documented by: [id number] Admin: 01/11/19 11:30 Dose: 2 cap Documented by: [id number] Admin: 01/11/19 07:30 Dose: 2 cap Documented by: [id number] Admin: 01/10/19 17:18 Dose: 2 cap Documented by: [id number] Admin: 01/10/19 10:46 Dose: 2 cap Documented by: [id number] Cyanocobalamin (Vitamin B-12) 1,000 mcg IM Fr@0900 [facility] Stop: 02/10/19 08:59 Last Admin: 01/11/19 08:30 Dose: 1,000 mcg Documented by: [id number] Doxycycline Hyclate (Vibramycin) 100 mg PO BID [facility] Stop: 01/20/19 08:59 Last Admin: 01/11/19 20:46 Dose: 100 mg Documented by: [id number] Admin: 01/11/19 08:27 Dose: 100 mg Documented by: [id number] Admin: 01/10/19 20:13 Dose: 100 mg Documented by: [id number] Admin: 01/10/19 10:37 Dose: 100 mg Documented by: [id number] Enoxaparin Sodium (Lovenox) 40 mg SQ Q24H [facility] Stop: 02/09/19 08:59 Last Admin: 01/11/19 08:28 Dose: 40 mg Documented by: [id number] Admin: 01/10/19 10:43 Dose: 40 mg Documented by: [id number] Ergocalciferol (Vitamin D2) 50,000 units PO MoTh@0900 [facility] Stop: 02/09/19 08:59 Last Admin: 01/10/19 10:46 Dose: 50,000 units Documented by: [id number] Gabapentin (Neurontin) 300 mg PO TID [facility] Stop: 02/09/19 08:59 Last Admin: 01/11/19 20:47 Dose: 300 mg Documented by: [id number] Admin: 01/11/19 13:37 Dose: 300 mg Documented by: [id number] Admin: 01/11/19 08:28 Dose: 300 mg Documented by: [id number] Admin: 01/10/19 20:12 Dose: 300 mg Documented by: [id number] Admin: 01/10/19 13:48 Dose: 300 mg Documented by: [id number] Admin: 01/10/19 10:36 Dose: 300 mg Documented by: [id number] Gadobutrol (Gadavist 65ml) 8 ml IV ONCE PRN PRN Reason: Interaction Checking Stop: 01/14/19 19:37 Last Admin: 01/10/19 19:39 Dose: 8 ml Documented by: [id number] Ketorolac Tromethamine (Toradol) 30 mg IV Q6H PRN PRN Reason: Pain Stop: 01/15/19 17:34 Last Admin: 01/11/19 14:38 Dose: 30 mg Documented by: [id number] Admin: 01/11/19 08:27 Dose: 30 mg Documented by: [id number] Admin: 01/11/19 01:28 Dose: 30 mg Documented by: [id number] Admin: 01/10/19 18:36 Dose: 30 mg Documented by: [id number] Mirtazapine (Remeron) 30 mg PO HS [facility] Stop: 02/09/19 20:59 Last Admin: 01/11/19 20:47 Dose: 30 mg Documented by: [id number] Admin: 01/10/19 20:13 Dose: 30 mg Documented by: [id number] Multivitamins/Folic Acid/Vitamin C (Flintstones Complete Chew Tab) 1 tab PO BID@ [facility] Stop: 02/09/19 19:59 Last Admin: 01/11/19 20:48 Dose: 1 tab Documented by: [id number] Admin: 01/11/19 08:28 Dose: 1 tab Documented by: [id number] Admin: 01/10/19 20:13 Dose: 1 tab Documented by: [id number] Multivitamins/Minerals (Caltrate Plus) 1 tab PO BID@ [facility] Stop: 02/09/19 19:59 Last Admin: 01/11/19 20:47 Dose: 1 tab Documented by: [id number] Admin: 01/11/19 08:28 Dose: 1 tab Documented by: [id number] Admin: 01/10/19 20:12 Dose: 1 tab Documented by: [id number] Pantoprazole Sodium (Protonix) 40 mg PO DAILY [facility] Stop: 02/09/19 08:59 Last Admin: 01/11/19 08:28 Dose: 40 mg Documented by: [id number] Admin: 01/10/19 10:38 Dose: 40 mg Documented by: [id number] [facility]ox[facility]il) [facility] [place]: 02/09/19 08:59 Last Admin: 01/11/19 08:28 Dose: 20 mg Documented by: [id number] Admin: 01/10/19 10:38 Dose: 20 mg Documented by: [id number] Valacyclovir HCl (Valtrex) 1,000 mg PO DAILY [facility] Stop: 02/09/19 08:59 Last Admin: 01/11/19 08:28 Dose: 1,000 mg Documented by: [id number] Admin: 01/10/19 10:45 Dose: 1,000 mg Documented by: [id number] Discontinued Medications Diphenhydramine HCl (Benadryl) 50 mg IV NOW STA Stop: 01/10/19 06:47 Last Admin: 01/10/19 07:13 Dose: 50 mg Documented by: [id number] Magnesium Sulfate/Dextrose (Magnesium Sulfate / D5w) 1 gm in 100 mls @ 100 mls/hr IV ONE ONE Stop: 01/10/19 07:45 Last Infusion: 01/10/19 08:15 Dose: 0 mls/hr Documented by: [id number] Admin: 01/10/19 07:14 Dose: 100 mls/hr Documented by: [id number] Prochlorperazine (Compazine) 2 mls @ 1 mls/min IV ONE ONE Stop: 01/10/19 06:47 Last Admin: 01/10/19 07:13 Dose: 1 mls/min Documented by: [id number] Sodium Chloride (Nss 1000ml) 1,000 mls @ 999 mls/hr IV .Q1H1M ONE Stop: 01/10/19 07:48 Last Infusion: 01/10/19 08:15 Dose: 0 mls/hr Documented by: [id number] Admin: 01/10/19 07:13 Dose: 999 mls/hr Documented by: [id number] Levofloxacin/Dextrose (Levaquin/D5w) 750 mg in 150 mls @ 100 mls/hr IV NOW STA Stop: 01/10/19 08:53 Last Infusion: 01/10/19 09:48 Dose: 0 mls/hr Documented by: [id number] Admin: 01/10/19 08:12 Dose: 100 mls/hr Documented by: [id number] Sodium Chloride (Nss 1000ml) 1,000 mls @ 999 mls/hr IV .Q1H1M ONE Stop: 01/10/19 08:24 Last Infusion: 01/10/19 09:26 Dose: 0 mls/hr Documented by: [id number] Admin: 01/10/19 08:13 Dose: 999 mls/hr Documented by: [id number] Vancomycin HCl 1,500 mg/ (Sodium Chloride) 530 mls @ 200 mls/hr IV NOW ONE; Pro tocol Stop: 01/10/19 10:02 Last Infusion: 01/10/19 13:29 Dose: 0 mls/hr Documented by: [id number] Admin: 01/10/19 08:23 Dose: 200 mls/hr Documented by: [id number] Piperacillin Sod/Tazobactam Sod (Zosyn) 4.5 gm in 120 mls @ 240 mls/hr IV NOW ONE Stop: 01/10/19 07:53 Last Infusion: 01/10/19 08:07 Dose: 0 mls/hr Documented by: [id number] Admin: 01/10/19 07:35 Dose: 240 mls/hr Documented by: [id number] Sodium Chloride (Nss 1000ml) 500 mls @ 999 mls/hr IV .Q31M ONE Stop: 01/10/19 07:56 Last Infusion: 01/10/19 09:02 Dose: 0 mls/hr Documented by: [id number] Admin: 01/10/19 08:27 Dose: 999 mls/hr Documented by: [id number] Acetaminophen (Ofirmev) 1,000 mg in 100 mls @ 400 mls/hr IV NOW STA Stop: 01/10/19 08:19 Last Infusion: 01/10/19 08:25 Dose: 0 mls/hr Documented by: [id number] Admin: 01/10/19 08:10 Dose: 400 mls/hr Documented by: [id number] Ceftriaxone Sodium 2,000 mg/ (Dextrose) 70 mls @ 100 mls/hr IV Q24H MARGO; Protocol Stop: 01/12/19 10:59 Last Infusion: 01/11/19 12:29 Dose: 0 mls/hr Documented by: [id number] Admin: 01/11/19 11:09 Dose: 100 mls/hr Documented by: [id number] Infusion: 01/10/19 13:20 Dose: 0 mls/hr Documented by: [id number] Admin: 01/10/19 10:43 Dose: 100 mls/hr Documented by: [id number] Vancomycin HCl 1,250 mg/ (Sodium Chloride) 275 mls @ 125 mls/hr IV Q8H MAR[facility] Stop: 02/21/19 15:59 Last Infusion: 01/12/19 04:37 Dose: 0 mls/hr Documented by: [id number] Admin: 01/11/19 23:43 Dose: 125 mls/hr Documented by: [id number] Infusion: 01/11/19 18:22 Dose: 0 mls/hr Documented by: [id number] Admin: 01/11/19 16:09 Dose: 125 mls/hr Documented by: [id number] Infusion: 01/11/19 10:48 Dose: 0 mls/hr Documented by: [id number] Admin: 01/11/19 08:29 Dose: 125 mls/hr Documented by: [id number] Infusion: 01/11/19 01:47 Dose: 0 mls/hr Documented by: [id number] Admin: 01/10/19 23:29 Dose: 125 mls/hr Documented by: [id number] Infusion: 01/10/19 17:30 Dose: 0 mls/hr Documented by: [id number] Admin: 01/10/19 15:18 Dose: 125 mls/hr Documented by: [id number] Piperacillin Sod/Tazobactam (Sod 3.375 gm/ Dextrose) 115 mls @ 28.75 mls/hr IV Q8H [facility]; Protocol Stop: 02/21/19 15:59 Last Infusion: 01/11/19 11:09 Dose: 0 mls/hr Documented by: [id number] Admin: 01/11/19 08:29 Dose: 28.8 mls/hr Documented by: [id number] Admin: 01/11/19 00:09 Dose: Not Given Documented by: [id number] Infusion: 01/10/19 19:20 Dose: 0 mls/hr Documented by: [id number] Admin: 01/10/19 15:18 Dose: 28.8 mls/hr Documented by: [id number] Ketorolac Tromethamine (Toradol) 30 mg IV NOW STA Stop: 01/10/19 06:47 Last Admin: 01/10/19 07:14 Dose: 30 mg Documented by: [id number] Lidocaine HCl (Xylocaine 1% (Local)) 20 ml INFIL NOW ONE Stop: 01/10/19 07:40 Last Admin: 01/10/19 07:45 Dose: 20 ml Documented by: [id number] Medical Decision Making Medical Records Attestation: I reviewed the patient's medical records. Home Medications Current Medication List: was personally reviewed by me Laboratory Data Attestation: I reviewed the patient's lab results. Result diagrams: 01/12/19 06:34 01/11/19 07:32 Lab Results 01/10/19 01/10/19 01/10/19 Range/Units 06:50 07:00 07:00 WBC 12.10 H (4.8-10.8) K/uL RBC 3.62 L (4.2-5.4) M/uL Hgb 11.6 L (12.0-16.0) g/dL POC Hgb (12.0-16.0) g/dl Hct 35.4 L (37-47) % POC Hct (37-47) % MCV 97.8 (80-100) fL MCH 32.0 (25-34) pg MCHC 32.8 (32-36) g/dL RDW Std Deviation 47.6 H (36.4-46.3) fL RDW Coeff of Eliel 13.3 (11.5-14.5) % Plt Count 192 (130-400) K/uL MPV 9.1 (7.4-10.4) fL Immature Gran % (Auto) 0.2 % Neut % (Auto) 92.5 % Lymph % (Auto) 1.7 % [place] % (Auto) 5.4 % Eos % (Auto) 0.2 % Baso % (Auto) 0.0 % Immature Gran # (Auto) 0.02 (0.00-0.02) K/uL Neut # (Auto) 11.21 H (1.4-6.5) K/uL Lymph # (Auto) 0.20 L (1.2-3.4) K/uL [place] # (Auto) 0.65 H (0.11-0.59) K/uL Eos # (Auto) 0.02 (0-0.5) K/uL Baso # (Auto) 0.00 (0-0.2) K/uL PT 10.9 (9.0-12.0) Seconds INR 1.1 (0.9-1.1) APTT 25.4 (21.0-31.0) Seconds PTT Ratio 0.9 POC Sodium (135-144) mEq/L Sodium (136-145) mmol/L POC Potassium (3.3-5.0) mEq/L Potassium (3.5-5.1) mmol/L POC Chloride (101-112) mEq/L Chloride (98-107) mmol/L Carbon Dioxide (21-32) mmol/L POC Total CO2 (24-31) mEq/l Anion Gap (3-11) POC Anion Gap (16-25) mmol/L POC BUN (7-18) mg/dl BUN (7-18) mg/dl Creatinine (0.6-1.2) mg/dl POC Creatinine (0.6-1.3) mg/dl Est Cr Clr Drug Dosing ml/min Est GFR ( Amer) Est GFR (Non-Af Amer) BUN/Creatinine Ratio (10-20) Glucose (70-99) mg/dl POC Glucose (other) (70-99) mg/dl POC Lactic Acid Sergio (0.90-1.70) mmol/L Calcium (8.5-10.1) mg/dl POC Ioniz Calcium [place] (1.12-1.32) mmol/l Total Bilirubin (0.2-1) mg/dl AST (15-37) U/L ALT (12-78) U/L Alkaline Phosphatase (45-117) U/L Total Creatine Kinase (26-192) U/L CK-MB (CK-2) (0.5-3.6) ng/ml CK/CKMB % Calc Troponin I (0-0.045) ng/ml Total Protein (6.4-8.2) gm/dl Albumin (3.4-5.0) gm/dl Globulin (2.5-4.0) gm/dl Albumin/Globulin Ratio (0.9-2) Procalcitonin (0-0.5) ng/ml Urine Color Urine Appearance (Clear) Urine pH (4.5-7.5) Ur Specific [place] (1.000-1.030) Urine Protein (Negative) Urine Glucose (UA) (Negative) Urine Ketones (Negative) Urine Blood (Negative) Urine Nitrite (Negative) Urine Bilirubin (Negative) Urine Urobilinogen (Negative) Ur Leukocyte Esterase (Negative) CSF Appearance CSF Color Xanthrochromic CSF WBC (0-5) /uL CSF RBC (0-) /uL CSF Cell Count Tube # CSF Chemistry Tube # CSF Glucose (40-70) mg/dl CSF Total Protein (15-45) mg/dl Lyme Disease IgG Ab (Negative) Lyme Disease IgM Ab (Negative) Influenza Type A (PCR) Neg for Influ A (Neg) Influenza Type B (PCR) Neg for Influ B (Neg) 01/10/19 01/10/19 01/10/19 Range/Units 07:00 07:00 07:03 WBC (4.8-10.8) K/uL RBC (4.2-5.4) M/uL Hgb (12.0-16.0) g/dL POC Hgb (12.0-16.0) g/dl Hct (37-47) % POC Hct (37-47) % MCV (80-100) fL MCH (25-34) pg MCHC (32-36) g/dL RDW Std Deviation (36.4-46.3) fL RDW Coeff of Eliel (11.5-14.5) % Plt Count (130-400) K/uL MPV (7.4-10.4) fL Immature Gran % (Auto) % Neut % (Auto) % Lymph % (Auto) % [place] % (Auto) % Eos % (Auto) % Baso % (Auto) % Immature Gran # (Auto) (0.00-0.02) K/uL Neut # (Auto) (1.4-6.5) K/uL Lymph # (Auto) (1.2-3.4) K/uL [place] # (Auto) (0.11-0.59) K/uL Eos # (Auto) (0-0.5) K/uL Baso # (Auto) (0-0.2) K/uL PT (9.0-12.0) Seconds INR (0.9-1.1) APTT (21.0-31.0) Seconds PTT Ratio POC Sodium (135-144) mEq/L Sodium 138 (136-145) mmol/L POC Potassium (3.3-5.0) mEq/L Potassium 3.6 (3.5-5.1) mmol/L POC Chloride (101-112) mEq/L Chloride 109 H (98-107) mmol/L Carbon Dioxide 23 (21-32) mmol/L POC Total CO2 (24-31) mEq/l Anion Gap 6.0 (3-11) POC Anion Gap (16-25) mmol/L POC BUN (7-18) mg/dl BUN 8 (7-18) mg/dl Creatinine 0.69 (0.6-1.2) mg/dl POC Creatinine (0.6-1.3) mg/dl Est Cr Clr Drug Dosing 101.7 ml/min Est GFR ( Amer) 122.7 Est GFR (Non-Af Amer) 105.9 BUN/Creatinine Ratio 11.8 (10-20) Glucose 125 H (70-99) mg/dl POC Glucose (other) (70-99) mg/dl POC Lactic Acid Sergio 1.83 H (0.90-1.70) mmol/L Calcium 8.4 L (8.5-10.1) mg/dl POC Ioniz Calcium [place] (1.12-1.32) mmol/l Total Bilirubin 0.3 (0.2-1) mg/dl AST 24 (15-37) U/L ALT 23 (12-78) U/L Alkaline Phosphatase 84 (45-117) U/L Total Creatine Kinase 109 (26-192) U/L CK-MB (CK-2) < 1.0 (0.5-3.6) ng/ml CK/CKMB % Calc TNP Troponin I < 0.015 (0-0.045) ng/ml Total Protein 6.6 (6.4-8.2) gm/dl Albumin 3.0 L (3.4-5.0) gm/dl Globulin 3.6 (2.5-4.0) gm/dl Albumin/Globulin Ratio 0.8 L (0.9-2) Procalcitonin 5.53 H (0-0.5) ng/ml Urine Color Urine Appearance (Clear) Urine pH (4.5-7.5) Ur Specific [place] (1.000-1.030) Urine Protein (Negative) Urine Glucose (UA) (Negative) Urine Ketones (Negative) Urine Blood (Negative) Urine Nitrite (Negative) Urine Bilirubin (Negative) Urine Urobilinogen (Negative) Ur Leukocyte Esterase (Negative) CSF Appearance CSF Color Xanthrochromic CSF WBC (0-5) /uL CSF RBC (0-) /uL CSF Cell Count Tube # CSF Chemistry Tube # CSF Glucose (40-70) mg/dl CSF Total Protein (15-45) mg/dl Lyme Disease IgG Ab Negative (Negative) Lyme Disease IgM Ab Negative (Negative) Influenza Type A (PCR) (Neg) Influenza Type B (PCR) (Neg) 06/01/10/19 01/10/19 Range/Units 07:07 07:40 07:59 WBC (4.8-10.8) K/uL RBC (4.2-5.4) M/uL Hgb (12.0-16.0) g/dL POC Hgb 12.6 (12.0-16.0) g/dl Hct (37-47) % POC Hct 37 (37-47) % MCV (80-100) fL MCH (25-34) pg MCHC (32-36) g/dL RDW Std Deviation (36.4-46.3) fL RDW Coeff of Eliel (11.5-14.5) % Plt Count (130-400) K/uL MPV (7.4-10.4) fL Immature Gran % (Auto) % Neut % (Auto) % Lymph % (Auto) % [place] % (Auto) % Eos % (Auto) % Baso % (Auto) % Immature Gran # (Auto) (0.00-0.02) K/uL Neut # (Auto) (1.4-6.5) K/uL Lymph # (Auto) (1.2-3.4) K/uL [place] # (Auto) (0.11-0.59) K/uL Eos # (Auto) (0-0.5) K/uL Baso # (Auto) (0-0.2) K/uL PT (9.0-12.0) Seconds INR (0.9-1.1) APTT (21.0-31.0) Seconds PTT Ratio POC Sodium 138 (135-144) mEq/L Sodium (136-145) mmol/L POC Potassium 3.6 (3.3-5.0) mEq/L Potassium (3.5-5.1) mmol/L POC Chloride 104 (101-112) mEq/L Chloride (98-107) mmol/L Carbon Dioxide (21-32) mmol/L POC Total CO2 21 L (24-31) mEq/l Anion Gap (3-11) POC Anion Gap 18.0 (16-25) mmol/L POC BUN 6 L (7-18) mg/dl BUN (7-18) mg/dl Creatinine (0.6-1.2) mg/dl POC Creatinine 0.6 (0.6-1.3) mg/dl Est Cr Clr Drug Dosing ml/min Est GFR ( Amer) Est GFR (Non-Af Amer) BUN/Creatinine Ratio (10-20) Glucose (70-99) mg/dl POC Glucose (other) 131 H (70-99) mg/dl POC Lactic Acid Sergio (0.90-1.70) mmol/L Calcium (8.5-10.1) mg/dl POC Ioniz Calcium [place] 1.16 (1.12-1.32) mmol/l Total Bilirubin (0.2-1) mg/dl AST (15-37) U/L ALT (12-78) U/L Alkaline Phosphatase (45-117) U/L Total Creatine Kinase (26-192) U/L CK-MB (CK-2) (0.5-3.6) ng/ml CK/CKMB % Calc Troponin I (0-0.045) ng/ml Total Protein (6.4-8.2) gm/dl Albumin (3.4-5.0) gm/dl Globulin (2.5-4.0) gm/dl Albumin/Globulin Ratio (0.9-2) Procalcitonin (0-0.5) ng/ml Urine Color Yellow Urine Appearance Clear (Clear) Urine pH 5.0 (4.5-7.5) Ur Specific [place] 1.017 (1.000-1.030) Urine Protein Negative (Negative) Urine Glucose (UA) Negative (Negative) Urine Ketones Negative (Negative) Urine Blood Negative (Negative) Urine Nitrite Negative (Negative) Urine Bilirubin Negative (Negative) Urine Urobilinogen Negative (Negative) Ur Leukocyte Esterase Negative (Negative) CSF Appearance CSF Color Xanthrochromic CSF WBC (0-5) /uL CSF RBC (0-) /uL CSF Cell Count Tube # CSF Chemistry Tube # CSF Glucose (40-70) mg/dl CSF Total Protein 26.9 (15-45) mg/dl Lyme Disease IgG Ab (Negative) Lyme Disease IgM Ab (Negative) Influenza Type A (PCR) (Neg) Influenza Type B (PCR) (Neg) 01/10/19 01/10/19 Range/Units 07:59 07:59 WBC (4.8-10.8) K/uL RBC (4.2-5.4) M/uL Hgb (12.0-16.0) g/dL POC Hgb (12.0-16.0) g/dl Hct (37-47) % POC Hct (37-47) % MCV (80-100) fL MCH (25-34) pg MCHC (32-36) g/dL RDW Std Deviation (36.4-46.3) fL RDW Coeff of Eliel (11.5-14.5) % Plt Count (130-400) K/uL MPV (7.4-10.4) fL Immature Gran % (Auto) % Neut % (Auto) % Lymph % (Auto) % [place] % (Auto) % Eos % (Auto) % Baso % (Auto) % Immature Gran # (Auto) (0.00-0.02) K/uL Neut # (Auto) (1.4-6.5) K/uL Lymph # (Auto) (1.2-3.4) K/uL [place] # (Auto) (0.11-0.59) K/uL Eos # (Auto) (0-0.5) K/uL Baso # (Auto) (0-0.2) K/uL PT (9.0-12.0) Seconds INR (0.9-1.1) APTT (21.0-31.0) Seconds PTT Ratio POC Sodium (135-144) mEq/L Sodium (136-145) mmol/L POC Potassium (3.3-5.0) mEq/L Potassium (3.5-5.1) mmol/L POC Chloride (101-112) mEq/L Chloride (98-107) mmol/L Carbon Dioxide (21-32) mmol/L POC Total CO2 (24-31) mEq/l Anion Gap (3-11) POC Anion Gap (16-25) mmol/L POC BUN (7-18) mg/dl BUN (7-18) mg/dl Creatinine (0.6-1.2) mg/dl POC Creatinine (0.6-1.3) mg/dl Est Cr Clr Drug Dosing ml/min Est GFR ( Amer) Est GFR (Non-Af Amer) BUN/Creatinine Ratio (10-20) Glucose (70-99) mg/dl POC Glucose (other) (70-99) mg/dl POC Lactic Acid Sergio (0.90-1.70) mmol/L Calcium (8.5-10.1) mg/dl POC Ioniz Calcium [place] (1.12-1.32) mmol/l Total Bilirubin (0.2-1) mg/dl AST (15-37) U/L ALT (12-78) U/L Alkaline Phosphatase (45-117) U/L Total Creatine Kinase (26-192) U/L CK-MB (CK-2) (0.5-3.6) ng/ml CK/CKMB % Calc Troponin I (0-0.045) ng/ml Total Protein (6.4-8.2) gm/dl Albumin (3.4-5.0) gm/dl Globulin (2.5-4.0) gm/dl Albumin/Globulin Ratio (0.9-2) Procalcitonin (0-0.5) ng/ml Urine Color Urine Appearance (Clear) Urine pH (4.5-7.5) Ur Specific [place] (1.000-1.030) Urine Protein (Negative) Urine Glucose (UA) (Negative) Urine Ketones (Negative) Urine Blood (Negative) Urine Nitrite (Negative) Urine Bilirubin (Negative) Urine Urobilinogen (Negative) Ur Leukocyte Esterase (Negative) CSF Appearance Clear CSF Color Colorless Xanthrochromic No xanthochromia CSF WBC 1 (0-5) /uL CSF RBC 1 (0-) /uL CSF Cell Count Tube # 3 CSF Chemistry Tube # 1 CSF Glucose 76 H (40-70) mg/dl CSF Total Protein (15-45) mg/dl Lyme Disease IgG Ab (Negative) Lyme Disease IgM Ab (Negative) Influenza Type A (PCR) (Neg) Influenza Type B (PCR) (Neg) Imaging Data Radiologist's Impression: Radiology results as stated below per my review and the radiologist's interpretation: XR chest 1V portable CLINICAL HISTORY: Sepsis COMPARISON STUDY: 12/20/2018 FINDINGS: The cardiac and mediastinal contours are normal. There is no evidence of focal pulmonary consolidation. There is no evidence of failure. No pleural effusions are visualized.[ There is a left lower lung zone calcified granuloma. IMPRESSION: No active disease in the chest. Electronically signed by: Ernesto Black M.D. 01/10/2019 7:11 AM Blood Pressure Blood Pressure Findings: Normal blood pressure Blood Pressure Disposition: did not require urgent referral MDM Narrative This is a 43-year-old female who presents emergency department with a fever. The patient had recently been in the emergency department for a fever and was started on Augmentin. After the admittance stop the patient's fevers came back. Her laboratory work is worse today. She does have a elevated lactate and has what I believe to be a new onset heart murmur. Based on this I am concerned that the patient may have endocarditis. Blood cultures were obtained and the patient was started on Zosyn and daptomycin. I did discuss the case with the hospitalist service who agreed to admit the patient. Patient was in agreement with the treatment plan. Impression & Plan Heart murmur, Fever Discharge Plan Visit Data *Final* Discharge Date/Time: 01/10/19 09:38 Chief Complaint: Fever Stated Complaint: BODY ACHES/FEVER ED Provider: Isaac Berry Discharge Problem: Heart murmur, Fever Patient Disposition: Admitted As Inpatient Discharge Instructions Interventions: ED Discharge Assessment Last Done: 01/10/19 09:38 Discharge Problem: Fever Qualifiers: Fever type: unspecified Qualified Code(s): R50.9 - Fever, unspecified The scribe's documentation has been prepared under my direction and personally reviewed by me in its entirety. I confirm that the note above accurately reflects all work, treatment, procedures, and medical decision making performed by me.
[2019-01-12 07:06] LABS: Hematocrit (blood only) 30.4 % (37-47); Hemoglobin 9.8 g/dL (12.0-16.0); Mean Corpuscular Hgb Conc 32.2 g/dL (32-36); Mean Platelet Volume 9.7 fL (7.4-10.4); Platelet Count 167 K/uL (130-400); RDW Coefficient of Variation 13.9 % (11.5-14.5); Red Blood Count 3.07 M/uL (4.2-5.4)
[2019-01-12] MEDS: PANTOprazole 40 MG TAB PO SCH (07:31)
[2019-01-12] MEDS: VALACYCLOVIR HCL 500 MG TABLET PO SCH (07:31)
[2019-01-12] MEDS: FLINTSTONES COMPLETE CHEWABLE TAB PO SCH (07:32)
[2019-01-12] MEDS: DOXYCYCLINE HYCLATE 100 MG CAP PO SCH (07:32)
[2019-01-12] MEDS: GABAPENTIN 300 MG CAP PO SCH (07:33)
[2019-01-12] MEDS: PARoxetine HCl 20 MG TAB PO SCH (07:33)
[2019-01-12] MEDS: CALCIUM 600MG + VIT D 400 IU TAB PO SCH (07:33)
[2019-01-12] MEDS: ENOXAPARIN INJ 40 MG/0.4 ML SYR SQ SCH (07:33)
[2019-01-12] MEDS: PANCREAZE (LIPASE 10,500U) CAP PO SCH ×2 (07:40→11:30)
[2019-01-12 07:42] LABS: Albumin Level 2.3 gm/dl (3.4-5.0); BUN Creatinine Ratio 10.1 (10-20); Calcium 8.2 mg/dl (8.5-10.1); Creatinine Clr Calc Pharmacy 117.6 ml/min; Est GFR (African American) 128.5; Est GFR (Non-African American) 110.9; Potassium 3.3 mmol/L (3.5-5.1)
[2019-01-12 07:45] LABS: Albumin Globulin Ratio 0.7 (0.9-2); Bilirubin,Total 0.2 mg/dl (0.2-1); Globulin 3.3 gm/dl (2.5-4.0); Total Protein 5.6 gm/dl (6.4-8.2)
[2019-01-12] MEDS: KETOROLAC 30 MG/ML VIAL IV PRN (07:46)
[2019-01-12] MEDS ORDERED: POTASSIUM CHLORIDE 20 MEQ TABCR PO ONE (09:00)
[2019-01-12] MEDS ORDERED: VANCOMYCIN TROUGH ONE (15:30)
[2019-01-15 16:56] LABS: Anaplasma phagocytophila IgM <1:20 (<1:20); Ehrlichia chaff IgG Ab <1:64 (<1:64); Ehrlichia chaff IgM Ab <1:20 (<1:20)
[2019-01-17 09:04] LABS: HSV Type 1 DNA Not Detected (Not Detected); HSV Type 1&2 DNA Source CSF; HSV Type 2 DNA Not Detected (Not Detected); Lyme IgG CSF NO BANDS DETECTED; Lyme IgM CSF NO BANDS DETECTED
--- NOTE | 2019-01-21 06:11 | Discharge Summary ---
Date of Service date of admission - January 10, 2019 date of discharge - January 12, 2019 Admission HPI Per Admitting Provider This is a 43 yo F with PMHx of depression, chronic pain, IV drug abuse in the past, benzodiazepene and ilicit drug abuse, obesity, colon cancer, anemia, polycystic kidney disease who presented to the ER with nausea, rigors, sweats which started at 0100 this morning. The patient was seen in the ER on 12/20/2018 for similar symptoms, at that point patient was placed on a course of Augmentin x10 days and patient complete the course a few days ago. Patient noted to have a systolic murmur which previously had not been present. She denies any recent drug use, and reports last use was over 1 year ago. Pt did not take morning medications. She denies any other acute complaints and felt in her normal health yesterday. Principal Diagnosis fever/SIRS - etiology uncertain - suspect viral process vs tick-borne disease Discharge Exam Constitutional well developed and well nourished; no acute distress and no altered mental status ENMT external ear and nose normal, oropharynx normal Respiratory normal respiratory effort, lungs clear to auscultation Cardiovascular Rate/Rhythm: regular rate and regular rhythm Heart Sounds: normal S1, normal S2 and + murmur (1-2/6 LLSB) Vessels: posterior tibial pulses present and dorsalis pedis pulses present; no JVD Gastrointestinal (Abdomen) normal bowel sounds, soft, nontender, no hepatosplenomegaly Musculoskeletal no cyanosis or clubbing, extremities motor strength 5/5 Skin no rashes, warm and dry Psychiatric A+Ox3, euthymic affect Lymphatic + cervical lymphadenopathy (multiple cervical LAD, some about 1 to 1.5cm in size (post auricular L, etc) Discharge Data Allergies Allergy/AdvReac Type Severity Reaction Status Date / Time morphine Allergy Severe TONGUE Verified 01/18/19 13:58 SWELLING, difficulty breathing/wheezing colestipol Allergy Intermediate red rash Verified 01/18/19 13:58 (no itching) cat dander Allergy Unknown ITCHY Verified 01/18/19 13:58 WATERY EYES nut - unspecified Allergy Unknown skin test Verified 01/18/19 13:58 showed nut allergy scopolamine AdvReac Severe Seizure Verified 01/18/19 13:58 promethazine AdvReac Intermediate "CAN'T SIT Verified 01/18/19 13:58 STILL" bupropion AdvReac Unknown Seizure Verified 01/18/19 13:[address] [facility] Procedures Performed lumbar puncture - normal cell counts, negative culture. Ordered Studies 1. CT head - no acute process. 2. MRI cervical spine w/ contrast - no signs of epidural abscess or diskitis. Hospital Course (1) Fever: Fever/SIRS - resolved. Extensive work-up including cxr, u/a, urine cx, blood cx's, MRI c-spine w/ contrast, CSF cx, lyme's testing, CT head --- all normal/negative and w/o source of infection. No diskitis seen on MRI c-spine despite recent neck pain. Received rocephin/vanco IV; both were discontinued after blood cx's and CSF culture were negative x 48 hours. She also received doxycycline to cover for tick-borne diseases. In light of cervical lymphadenopathy on exam her recent fever could be viral in etiology, tick-borne, or even noninfectious (e.g. lymphoma, but doubt). While awaiting anaplasmosis and ehrlichia titers recommend 14-day course of PO doxycycline at d/c while awaiting those titers. If patient continues to have fevers, persistent lymphadenopathy, and/or if tick- borne titers are negative consider viral studies (EBV, CMV, etc) and consi deration of ID consultation. Could also consider hematology/oncology evaluation. (2) Heart murmur: echocardiogram reassuring and w/o signs of endocarditis. cardiology consult completed and they, too, were not concerned about infectious endocarditis in light of negative blood cultures and normal echocardiogram. (3) Chronic anemia: Ferritin level 106. Folate level normal. Recent b12 level robust. Would simply repeat a CBC in the outpatient setting for stability. Presenting hemoglobin was 11.6. (4) H/O drug abuse: none in 1+ years most recent tox screen negative Total Time Total Time Spent Total Time Spent (In Minutes): 35 Total Time Includes: Examination of the Patient, Discharge Planning and Medication Reconciliation Discharge Plan Discharge Items Patient Disposition: Home - Self-Care Reason For Visit: fever, chills, headache, neck pain Discharge Diagnosis: febrile illness - exact cause uncertain - possible tick- borne illness vs viral illness vs other. NO bloodstream infection or meningitis. Discharge Goals: Diagnostic testing and Therapeutic intervention Activity: Resume your previous activity Non-emergency contact: Primary Care Provider Call non-emergency contact if: you have any medication questions, your symptoms worsen, your pain is not controlled, your pain is worsening, your pain is unusual for you, your pain is concerning for you and your temperature is above 100.5 Follow-up/Referrals: Marivel Harrell MD [Primary Care Provider] - (see Dr Harrell within 5 days ) Diet: Regular Addtl Provider Instructions: From Gurmeet Maher, hospitalist - You were seen and treated for fever, chills, headache, neck pain and simply feeling poorly. Your fever resolved on the first hospital day. You underwent an LP (spinal tap) and this did NOT show evidence of meningitis. Other testing including blood cultures, flu test, urine studies, chest x-ray, MRI of the neck, lyme's disease testing, and other labs were all normal/negative. We did NOT find a bloodstream infection, UTI, or pneumonia. At this time your symptoms may have been from a tick-borne disease, viral i nfection, or a non-infectious cause (certain types of diseases can cause fever). Recommendations - 1. to cover for the possibility of a tick-borne disease while awaiting blood tests start DOXYCYCLINE 100mg twice a day for 12 more days. * doxycycline can cause heartburn * doxycycline can also cause a rash if you go out in the sun while taking the medication; cover up and use sunscreen liberally over the next 2 weeks 2. take probiotics for 10 days; this may help with your diarrhea. 3. may take [id number] immodium as needed for diarrhea. Follow-up: See Dr Harrell mid-next week Return to [facility] if: * you have recurrent fevers over 100.5 degrees * you have worsening chills, sweats, extreme fatigue, etc * you develop any unusual rashes * your diarrhea worsens * any other concerns Prescriptions: New doxycycline hyclate 100 mg Capsule 100 mg PO BID 12 Days Qty: 24 RF: 0 Continued pantoprazole 40 mg tablet,delayed release (DR/EC) 40 mg PO DAILY RF: 0 vitamin A 10,000 unit Capsule 20,000 unit PO DAILY RF: 0 triamcinolone acetonide 0.025 % Cream 1 applic TOPICAL DAILY PRN (Reason: Unknown) RF: 0 calcium carbonate-vitamin D3 [Calcium 500 + D] 500 mg(1,250mg) -200 unit Tablet 1 tab PO BID RF: 0 cholecalciferol (vitamin D3) 50,000 unit Capsule 50,000 unit PO 2XWK RF: 0 gabapentin 300 mg Capsule 300 mg PO TID RF: 0 Flintstones with Iron 18 mg iron Tablet,Chewable 1 tab PO BID RF: 0 paroxetine HCl [Paxil] 20 mg Tablet 20 mg PO QAM RF: 0 mirtazapine [Remeron] 30 mg Tablet 30 mg PO HS RF: 0 ondansetron HCl [Zofran] 8 mg Tablet 8 mg PO TID PRN (Reason: Nausea) RF: 0 valacyclovir 500 mg Tablet 1,000 mg PO DAILY RF: 0 cyanocobalamin (vitamin B-12) 1,000 mcg/mL Solution 1,000 mcg IM WK RF: 0 Creon 36,000-114,000- 180,000 unit Capsule,Delayed Release(Dr/Ec) 2 cap PO AC RF: 0 Changed acetaminophen 500 mg tablet 1,000 mg PO Q8H PRN (Reason: Fever Or Pain) Qty: 0 RF: 0 No Action Creon 36,000-114,000- 180,000 unit capsule,delayed release(DR/EC) 1 cap PO .COMPLEX RF: 0 Lactinex 1 million cell tablet,chewable 3 tab PO TID 10 Days Qty: 90 RF: 0 fluconazole [Diflucan] 150 mg tablet 150 mg PO ONCE Qty: 1 RF: 0 Stand-Alone Forms: [facility], Work/School Release (Inpt) Discharge Orders: Discharge Order (Routine); Ordered 01/12/19 Ordered By: Gurmeet Maher Admission Data Admit Date/Time: 01/10/19 08:47 Attending Provider: Gurmeet Maher Admit Provider: Gurmeet Maher Primary Care Provider: Marivel Harrell Other Providers: Lazarus Porter Service: Medical Other Interventions: Discharge Summary Assessment (RN) Last Done: 01/12/19 11:41 Pending Studies at Discharge: Yes Studies:: tick borne disease testing DC Date/Time DO NOT enter until pt leaves facility: 01/12/19 13:50
== END 2019-01-12 13:50 | disposition home or self-care (01) | DRG 307 ==
LOC: ED 06:34 → 2S 08:47 → 2W 01-11 13:21

== ENCOUNTER 2019-05-18 20:41 | Observation (INO) ==
[2019-05-18 21:17] LABS: Basophils # (auto) 0.01 K/uL (0-0.2); Basophils % (auto) 0.3 %; Eosinophils # (auto) 0.08 K/uL (0-0.5); Eosinophils % (auto) 2.3 %; Hematocrit (blood only) 31.4 % (37-47); Hemoglobin 10.1 g/dL (12.0-16.0); Lymphocytes % (auto) 43.9 %; Mean Corpuscular Hemoglobin 33.1 pg (25-34); Mean Corpuscular Hgb Conc 32.2 g/dL (32-36); Mean Platelet Volume 9.8 fL (7.4-10.4); Monocytes # (auto) 0.26 K/uL (0.11-0.59); Monocytes % (auto) 7.6 %; Neutrophils # (auto) 1.57 K/uL (1.4-6.5); Neutrophils % (auto) 45.9 %; Platelet Count 139 K/uL (130-400); RDW Coefficient of Variation 13.7 % (11.5-14.5); RDW Standard Deviation 51.8 fL (36.4-46.3); Red Blood Count 3.05 M/uL (4.2-5.4); White Blood Count 3.42 K/uL (4.8-10.8)
--- NOTE | 2019-05-18 21:20 | Emergency Department Note ---
Entered by Michael Ortega acting as a scribe for Atilio Santiago DO History of Present Illness General Chief complaint: Altered Mental Status Stated complaint: AMS Time Seen by Provider: 05/18/19 20:47 Source: EMS Limitations: altered mental status History of Present Illness Onset (ago): minute(s) 45 Location: head Pain Consistency: + constant Quality: + constant The patient is a 43 year old female who presents to the Emergency Room with complaints of altered mental status starting 45 minutes ago. EMS notes the patient's daughter found the patient unresponsive sitting in a chair. EMS states the daughter called the neighbor over and the neighbor was unable to get the patient to respond. EMS states the patient has multiple types of cancer and takes many medications. The patient's daughter states the patient had surgery on her left toe recently. EMS states the patient was unable to walk. EMS states they gave the patient 0.4 Narcan and her blood sugar was 79. HPI is limited secondary to altered mental status. Home Medications Home Medications Medication Instructions Recorded Confirmed Type acetaminophen [Tylenol Extra 500 mg PO Q6H PRN 05/18/19 05/18/19 History Strength] calcium citrate malate-vit D3 2 tab PO BID 05/18/19 05/18/19 History cyanocobalamin (vitamin B-12) 1,000 mcg IM MONTHLY 05/18/19 05/18/19 History cyclobenzaprine 5 mg PO HS PRN 05/18/19 05/18/19 History doxepin 20 mg PO HS 05/18/19 05/18/19 History ergocalciferol (vitamin D2) 50,000 unit PO 2XWK 05/18/19 05/18/19 History [Vitamin D2] gabapentin 600 mg PO TID 05/18/19 05/18/19 History metoclopramide HCl [Reglan] 5 mg PO UD 05/18/19 05/18/19 History mirtazapine [Remeron] 30 mg PO HS 05/18/19 05/18/19 History mv. min [id number] [AquADEKs] 1 tab PO DAILY 05/18/19 05/18/19 History pantoprazole [Protonix] 40 mg PO DAILY 05/18/19 05/18/19 History paroxetine HCl [Paxil] 30 mg PO DAILY 05/18/19 05/18/19 History valacyclovir [Valtrex] 1,000 mg PO UD 05/18/19 05/18/19 History vitamin A 10,000 unit PO DIRECTED 05/18/19 05/18/19 History Allergies Allergy/AdvReac Type Severity Reaction Status Date / Time bupropion [From Wellbutrin] Allergy Unknown Verified 05/18/19 22:47 colestipol Allergy Unknown Verified 05/18/19 22:46 morphine Allergy Unknown Verified 05/18/19 22:46 peanut Allergy Unknown Verified 05/18/19 22:46 promethazine [From Phenergan] Allergy Unknown Verified 05/18/19 22:47 Past Med/Surg History Social History Preferred Language: [place]ijani Communication Ability: Impaired [place] Actor Required: No Beliefs That Will Affect Care: None Current Living Situation: Family and Significant Other Feels Safe at Home: Yes Safety Concerns: Afraid for Self Smoking Status: Never smoker Hx Alcohol Use: No Hx Substance Use: Yes (history of) Review of Systems See HPI for pertinent positives & negatives. and A total of 10 systems reviewed and were otherwise negative Physical Exam Vital Signs Vital Signs - 24 hr 05/18/19 20:50 05/18/19 21:00 05/18/19 21:41 Temperature 35.7 C L Temperature Source Rectal Sepsis Recent Fever Within 48 Hours No Sepsis New/Unexplained Change in Mental Status Yes Sepsis Action Taken by Nursing No Action Required Pulse Rate 93 H 93 H Pulse Rate [Finger] 84 Pulse Rate from SpO2 Sensor Pulse Rhythm Regular Regular Pulse Rhythm [Finger] Pulse Strength Normal Pulse Strength [Finger] Respiratory Rate 18 18 16 Respiratory Effort / Characteristics Non-Labored Spontaneous Non-Labored Spontaneous Respiratory Depth Normal Normal Respiratory Pattern Regular Blood Pressure 129/81 Blood Pressure [Right Arm] 121/68 Blood Pressure Mean 97 Blood Pressure Mean [Right Arm] 85 Blood Pressure Position Lying Pulse Oximetry 93 93 94 Oxygen Delivery Method Room Air Room Air Room Air 05/18/19 22:30 05/18/19 23:00 05/18/19 23:30 Temperature Temperature Source Sepsis Recent Fever Within 48 Hours Sepsis New/Unexplained Change in Mental Status Sepsis Action Taken by Nursing Pulse Rate 80 79 Pulse Rate [Finger] 81 Pulse Rate from SpO2 Sensor 80 78 Pulse Rhythm Pulse Rhythm [Finger] Regular Pulse Strength Pulse Strength [Finger] Normal Respiratory Rate 16 17 17 Respiratory Effort / Characteristics Non-Labored Respiratory Depth Normal Respiratory Pattern Regular Blood Pressure 125/72 123/77 Blood Pressure [Right Arm] 126/77 Blood Pressure Mean 89 92 Blood Pressure Mean [Right Arm] 93 Blood Pressure Position Pulse Oximetry 94 94 93 Oxygen Delivery Method Room Air Room Air 05/19/19 00:00 Temperature Temperature Source Sepsis Recent Fever Within 48 Hours Sepsis New/Unexplained Change in Mental Status Sepsis Action Taken by Nursing Pulse Rate 78 Pulse Rate [Finger] Pulse Rate from SpO2 Sensor 80 Pulse Rhythm Pulse Rhythm [Finger] Pulse Strength Pulse Strength [Finger] Respiratory Rate 19 Respiratory Effort / Characteristics Respiratory Depth Respiratory Pattern Blood Pressure 131/85 Blood Pressure [Right Arm] Blood Pressure Mean 100 Blood Pressure Mean [Right Arm] Blood Pressure Position Pulse Oximetry 94 Oxygen Delivery Method Room Air GENERAL: Patient is obtunded. She does not follow commands or answer questions. EYES: The conjunctivae are clear. The pupils are minimally constricted and reactive to light bilaterally. Eyes had to be forced open EARS, NOSE, MOUTH AND THROAT: The nose is without any evidence of any deformity. Mucous membranes are dry. NECK: The neck is nontender and supple. RESPIRATORY: Normal respiratory effort is noted. There is no evidence of wheezing rhonchi or rales to auscultation. CARDIOVASCULAR: Regular rate and rhythm noted. There no murmurs rubs or gallops normal S1 normal S2 GASTROINTESTINAL: The abdomen is soft. Bowel sounds are present in all quadrants. Abdomen is nontender. MUSCULOSKELETAL/EXTREMITIES: There is no evidence of gross deformity. Full range of motion is noted in the hips and shoulders. SKIN: There is no obvious evidence of any rash. No pedal edema was noted. NEUROLOGIC: Patient does not follow commands or answer questions. It is difficult to assess orientation at this time. Course 2047: The patient was evaluated in room A4B, and a complete history and physical examination were performed. 2249: I discussed the patient's case with Dr. Klein - [facility] Hospitalist. She will evaluate the patient for further management 2357: I reviewed the PDMP which revealed the patient got 3 prescriptions. One in February and 2 in March for a total of 90 pills of hydrocodone and oxycodone. Administered Medications Potassium Chloride/Dextrose/Sod Cl (D5nss + 20meq Kcl) 20 meq in 1,000 mls @ 125 mls/hr IV .Q8H MARGO Stop: 06/18/19 01:29 Last Admin: 05/19/19 01:35 Dose: 125 mls/hr Documented by: [id number] Magnesium Sulfate/Dextrose (Magnesium Sulfate / D5w) 1 gm in 100 mls @ 100 mls/hr IV ONE ONE Stop: 05/19/19 02:29 Last Admin: 05/19/19 01:45 Dose: 100 mls/hr Documented by: [id number] Medical Decision Making Differential Diagnosis Differential diagnoses includes but is not limited to toxic, metabolic, infectious, traumatic, cardiac, neurologic, hematologic, psychiatric and inflammatory etiologies. Medical Records Attestation: I reviewed the patient's medical records. Home Medications Current Medication List: was personally reviewed by me Laboratory Data Attestation: I reviewed the patient's lab results. Result diagrams: 05/18/19 20:50 05/18/19 20:50 Lab Results 05/18/19 05/18/19 05/18/19 Range/Units 20:50 20:50 20:50 WBC 3.42 L (4.8-10.8) K/uL RBC 3.05 L (4.2-5.4) M/uL Hgb 10.1 L (12.0-16.0) g/dL POC Hgb (12.0-16.0) g/dl Hct 31.4 L (37-47) % POC Hct (37-47) % MCV 103.0 H (80-100) fL MCH 33.1 (25-34) pg MCHC 32.2 (32-36) g/dL RDW Std Deviation 51.8 H (36.4-46.3) fL RDW Coeff of Eliel 13.7 (11.5-14.5) % Plt Count 139 (130-400) K/uL MPV 9.8 (7.4-10.4) fL Immature Gran % (Auto) 0.0 % Neut % (Auto) 45.9 % Lymph % (Auto) 43.9 % Lawrence % (Auto) 7.6 % Eos % (Auto) 2.3 % Baso % (Auto) 0.3 % Immature Gran # (Auto) 0.00 (0.00-0.02) K/uL Neut # (Auto) 1.57 (1.4-6.5) K/uL Lymph # (Auto) 1.50 (1.2-3.4) K/uL Lawrence # (Auto) 0.26 (0.11-0.59) K/uL Eos # (Auto) 0.08 (0-0.5) K/uL Baso # (Auto) 0.01 (0-0.2) K/uL ESR (0-21) mm/hr PT 11.3 (9.0-12.0) Seconds INR 1.1 (0.9-1.1) APTT 22.6 (21.0-31.0) Seconds PTT Ratio 0.8 VBG pH (7.36-7.41) VBG pCO2 (38-50) mmHg VBG pO2 mmHg VBG HCO3 mmol/L VBG O2 Saturation % VBG Base Excess mEq/L Barometric Pressure mm/Hg POC Sodium (135-144) mEq/L Sodium (136-145) mmol/L POC Potassium (3.3-5.0) mEq/L Potassium (3.5-5.1) mmol/L POC Chloride (101-112) mEq/L Chloride (98-107) mmol/L Carbon Dioxide (21-32) mmol/L POC Total CO2 (24-31) mEq/l Anion Gap (3-11) POC Anion Gap (16-25) mmol/L POC BUN (7-18) mg/dl BUN (7-18) mg/dl Creatinine (0.6-1.2) mg/dl POC Creatinine (0.6-1.3) mg/dl Est Cr Clr Drug Dosing ml/min Est GFR ( Amer) Est GFR (Non-Af Amer) BUN/Creatinine Ratio (10-20) Glucose (70-99) mg/dl POC Glucose (other) (70-99) mg/dl Osmolality (280-300) mOsm/kg POC Lactic Acid Sergio (0.90-1.70) mmol/L Lactate 2.0 (0.4-2.0) mmol/L Calcium (8.5-10.1) mg/dl POC Ioniz Calcium [place] (1.12-1.32) mmol/l Magnesium (1.8-2.4) mg/dl Total Bilirubin (0.2-1) mg/dl AST (15-37) U/L ALT (12-78) U/L Alkaline Phosphatase (45-117) U/L C-Reactive Protein (0-0.29) mg/dl Total Protein (6.4-8.2) gm/dl Albumin (3.4-5.0) gm/dl Globulin (2.5-4.0) gm/dl Albumin/Globulin Ratio (0.9-2) Procalcitonin (0-0.5) ng/ml Urine Color Urine Appearance (Clear) Urine pH (4.5-7.5) Ur Specific [place] (1.000-1.030) Urine Protein (Negative) Urine Glucose (UA) (Negative) Urine Ketones (Negative) Urine Blood (Negative) Urine Nitrite (Negative) Urine Bilirubin (Negative) Urine Urobilinogen (Negative) Ur Leukocyte Esterase (Negative) Urine Osmolality (500-800) mOsm/kg Salicylates (2.8-20) mg/dl Urine Opiates Screen (Neg) Ur Methadone, Qual (Neg) Acetaminophen (10-30) ug/ml Urine Barbiturates (Neg) Ur Phencyclidine (PCP) (Neg) U Amphetamin/Meth Scrn (Neg) MDMA (Ecstasy) Screen (Neg) U Benzodiazepines Scrn (Neg) Ur Cocaine Metabolite (Neg) U Marijuana (THC) Screen (Neg) Ethyl Alcohol mg/dL (0-3) mg/dl 05/18/19 05/18/19 05/18/19 Range/Units 20:50 20:50 20:50 WBC (4.8-10.8) K/uL RBC (4.2-5.4) M/uL Hgb (12.0-16.0) g/dL POC Hgb (12.0-16.0) g/dl Hct (37-47) % POC Hct (37-47) % MCV (80-100) fL MCH (25-34) pg MCHC (32-36) g/dL RDW Std Deviation (36.4-46.3) fL RDW Coeff of Eliel (11.5-14.5) % Plt Count (130-400) K/uL MPV (7.4-10.4) fL Immature Gran % (Auto) % Neut % (Auto) % Lymph % (Auto) % Lawrence % (Auto) % Eos % (Auto) % Baso % (Auto) % Immature Gran # (Auto) (0.00-0.02) K/uL Neut # (Auto) (1.4-6.5) K/uL Lymph # (Auto) (1.2-3.4) K/uL Lawrence # (Auto) (0.11-0.59) K/uL Eos # (Auto) (0-0.5) K/uL Baso # (Auto) (0-0.2) K/uL ESR 2 (0-21) mm/hr PT (9.0-12.0) Seconds INR (0.9-1.1) APTT (21.0-31.0) Seconds PTT Ratio VBG pH (7.36-7.41) VBG pCO2 (38-50) mmHg VBG pO2 mmHg VBG HCO3 mmol/L VBG O2 Saturation % VBG Base Excess mEq/L Barometric Pressure mm/Hg POC Sodium (135-144) mEq/L Sodium 143 (136-145) mmol/L POC Potassium (3.3-5.0) mEq/L Potassium 3.2 L (3.5-5.1) mmol/L POC Chloride (101-112) mEq/L Chloride 116 H (98-107) mmol/L Carbon Dioxide 22 (21-32) mmol/L POC Total CO2 (24-31) mEq/l Anion Gap 5.0 (3-11) POC Anion Gap (16-25) mmol/L POC BUN (7-18) mg/dl BUN 12 (7-18) mg/dl Creatinine 0.71 (0.6-1.2) mg/dl POC Creatinine (0.6-1.3) mg/dl Est Cr Clr Drug Dosing 112.7 ml/min Est GFR ( Amer) 120.1 Est GFR (Non-Af Amer) 103.6 BUN/Creatinine Ratio 17.4 (10-20) Glucose 105 H (70-99) mg/dl POC Glucose (other) (70-99) mg/dl Osmolality (280-300) mOsm/kg POC Lactic Acid Sergio (0.90-1.70) mmol/L Lactate (0.4-2.0) mmol/L Calcium 7.7 L (8.5-10.1) mg/dl POC Ioniz Calcium [place] (1.12-1.32) mmol/l Magnesium 1.8 (1.8-2.4) mg/dl Total Bilirubin 0.3 (0.2-1) mg/dl AST 24 (15-37) U/L ALT 24 (12-78) U/L Alkaline Phosphatase 78 (45-117) U/L C-Reactive Protein < 0.29 (0-0.29) mg/dl Total Protein 6.0 L (6.4-8.2) gm/dl Albumin 3.3 L (3.4-5.0) gm/dl Globulin 2.7 (2.5-4.0) gm/dl Albumin/Globulin Ratio 1.2 (0.9-2) Procalcitonin < 0.05 (0-0.5) ng/ml Urine Color Urine Appearance (Clear) Urine pH (4.5-7.5) Ur Specific [place] (1.000-1.030) Urine Protein (Negative) Urine Glucose (UA) (Negative) Urine Ketones (Negative) Urine Blood (Negative) Urine Nitrite (Negative) Urine Bilirubin (Negative) Urine Urobilinogen (Negative) Ur Leukocyte Esterase (Negative) Urine Osmolality (500-800) mOsm/kg Salicylates (2.8-20) mg/dl Urine Opiates Screen (Neg) Ur Methadone, Qual (Neg) Acetaminophen (10-30) ug/ml Urine Barbiturates (Neg) Ur Phencyclidine (PCP) (Neg) U Amphetamin/Meth Scrn (Neg) MDMA (Ecstasy) Screen (Neg) U Benzodiazepines Scrn (Neg) Ur Cocaine Metabolite (Neg) U Marijuana (THC) Screen (Neg) Ethyl Alcohol mg/dL (0-3) mg/dl 05/18/19 05/18/19 05/18/19 Range/Units 20:50 20:50 21:00 WBC (4.8-10.8) K/uL RBC (4.2-5.4) M/uL Hgb (12.0-16.0) g/dL POC Hgb (12.0-16.0) g/dl Hct (37-47) % POC Hct (37-47) % MCV (80-100) fL MCH (25-34) pg MCHC (32-36) g/dL RDW Std Deviation (36.4-46.3) fL RDW Coeff of Eliel (11.5-14.5) % Plt Count (130-400) K/uL MPV (7.4-10.4) fL Immature Gran % (Auto) % Neut % (Auto) % Lymph % (Auto) % Lawrence % (Auto) % Eos % (Auto) % Baso % (Auto) % Immature Gran # (Auto) (0.00-0.02) K/uL Neut # (Auto) (1.4-6.5) K/uL Lymph # (Auto) (1.2-3.4) K/uL Lawrence # (Auto) (0.11-0.59) K/uL Eos # (Auto) (0-0.5) K/uL Baso # (Auto) (0-0.2) K/uL ESR (0-21) mm/hr PT (9.0-12.0) Seconds INR (0.9-1.1) APTT (21.0-31.0) Seconds PTT Ratio VBG pH (7.36-7.41) VBG pCO2 (38-50) mmHg VBG pO2 mmHg VBG HCO3 mmol/L VBG O2 Saturation % VBG Base Excess mEq/L Barometric Pressure mm/Hg POC Sodium (135-144) mEq/L Sodium (136-145) mmol/L POC Potassium (3.3-5.0) mEq/L Potassium (3.5-5.1) mmol/L POC Chloride (101-112) mEq/L Chloride (98-107) mmol/L Carbon Dioxide (21-32) mmol/L POC Total CO2 (24-31) mEq/l Anion Gap (3-11) POC Anion Gap (16-25) mmol/L POC BUN (7-18) mg/dl BUN (7-18) mg/dl Creatinine (0.6-1.2) mg/dl POC Creatinine (0.6-1.3) mg/dl Est Cr Clr Drug Dosing ml/min Est GFR ( Amer) Est GFR (Non-Af Amer) BUN/Creatinine Ratio (10-20) Glucose (70-99) mg/dl POC Glucose (other) (70-99) mg/dl Osmolality 295 (280-300) mOsm/kg POC Lactic Acid Sergio (0.90-1.70) mmol/L Lactate (0.4-2.0) mmol/L Calcium (8.5-10.1) mg/dl POC Ioniz Calcium [place] (1.12-1.32) mmol/l Magnesium (1.8-2.4) mg/dl Total Bilirubin (0.2-1) mg/dl AST (15-37) U/L ALT (12-78) U/L Alkaline Phosphatase (45-117) U/L C-Reactive Protein (0-0.29) mg/dl Total Protein (6.4-8.2) gm/dl Albumin (3.4-5.0) gm/dl Globulin (2.5-4.0) gm/dl Albumin/Globulin Ratio (0.9-2) Procalcitonin (0-0.5) ng/ml Urine Color Urine Appearance (Clear) Urine pH (4.5-7.5) Ur Specific [place] (1.000-1.030) Urine Protein (Negative) Urine Glucose (UA) (Negative) Urine Ketones (Negative) Urine Blood (Negative) Urine Nitrite (Negative) Urine Bilirubin (Negative) Urine Urobilinogen (Negative) Ur Leukocyte Esterase (Negative) Urine Osmolality (500-800) mOsm/kg Salicylates < 1.7 L (2.8-20) mg/dl Urine Opiates Screen Neg (Neg) Ur Methadone, Qual Neg (Neg) Acetaminophen 24 (10-30) ug/ml Urine Barbiturates Neg (Neg) Ur Phencyclidine (PCP) Neg (Neg) U Amphetamin/Meth Scrn Neg (Neg) MDMA (Ecstasy) Screen Neg (Neg) U Benzodiazepines Scrn Neg (Neg) Ur Cocaine Metabolite Neg (Neg) U Marijuana (THC) Screen Neg (Neg) Ethyl Alcohol mg/dL (0-3) mg/dl 05/18/19 05/18/19 05/18/19 Range/Units 21:00 21:00 21:07 WBC (4.8-10.8) K/uL RBC (4.2-5.4) M/uL Hgb (12.0-16.0) g/dL POC Hgb 9.9 L (12.0-16.0) g/dl Hct (37-47) % POC Hct 29 L (37-47) % MCV (80-100) fL MCH (25-34) pg MCHC (32-36) g/dL RDW Std Deviation (36.4-46.3) fL RDW Coeff of Eliel (11.5-14.5) % Plt Count (130-400) K/uL MPV (7.4-10.4) fL Immature Gran % (Auto) % Neut % (Auto) % Lymph % (Auto) % Lawrence % (Auto) % Eos % (Auto) % Baso % (Auto) % Immature Gran # (Auto) (0.00-0.02) K/uL Neut # (Auto) (1.4-6.5) K/uL Lymph # (Auto) (1.2-3.4) K/uL Lawrence # (Auto) (0.11-0.59) K/uL Eos # (Auto) (0-0.5) K/uL Baso # (Auto) (0-0.2) K/uL ESR (0-21) mm/hr PT (9.0-12.0) Seconds INR (0.9-1.1) APTT (21.0-31.0) Seconds PTT Ratio VBG pH (7.36-7.41) VBG pCO2 (38-50) mmHg VBG pO2 mmHg VBG HCO3 mmol/L VBG O2 Saturation % VBG Base Excess mEq/L Barometric Pressure mm/Hg POC Sodium 144 (135-144) mEq/L Sodium (136-145) mmol/L POC Potassium 3.2 L (3.3-5.0) mEq/L Potassium (3.5-5.1) mmol/L POC Chloride 111 (101-112) mEq/L Chloride (98-107) mmol/L Carbon Dioxide (21-32) mmol/L POC Total CO2 21 L (24-31) mEq/l Anion Gap (3-11) POC Anion Gap 17.0 (16-25) mmol/L POC BUN 11 (7-18) mg/dl BUN (7-18) mg/dl Creatinine (0.6-1.2) mg/dl POC Creatinine 0.7 (0.6-1.3) mg/dl Est Cr Clr Drug Dosing ml/min Est GFR ( Amer) Est GFR (Non-Af Amer) BUN/Creatinine Ratio (10-20) Glucose (70-99) mg/dl POC Glucose (other) 106 H (70-99) mg/dl Osmolality (280-300) mOsm/kg POC Lactic Acid Sergio (0.90-1.70) mmol/L Lactate (0.4-2.0) mmol/L Calcium (8.5-10.1) mg/dl POC Ioniz Calcium [place] 1.21 (1.12-1.32) mmol/l Magnesium (1.8-2.4) mg/dl Total Bilirubin (0.2-1) mg/dl AST (15-37) U/L ALT (12-78) U/L Alkaline Phosphatase (45-117) U/L C-Reactive Protein (0-0.29) mg/dl Total Protein (6.4-8.2) gm/dl Albumin (3.4-5.0) gm/dl Globulin (2.5-4.0) gm/dl Albumin/Globulin Ratio (0.9-2) Procalcitonin (0-0.5) ng/ml Urine Color Yellow Urine Appearance Clear (Clear) Urine pH 5.0 (4.5-7.5) Ur Specific [place] 1.024 (1.000-1.030) Urine Protein Negative (Negative) Urine Glucose (UA) Negative (Negative) Urine Ketones Negative (Negative) Urine Blood Negative (Negative) Urine Nitrite Negative (Negative) Urine Bilirubin Negative (Negative) Urine Urobilinogen Negative (Negative) Ur Leukocyte Esterase Negative (Negative) Urine Osmolality 848 H (500-800) mOsm/kg Salicylates (2.8-20) mg/dl Urine Opiates Screen (Neg) Ur Methadone, Qual (Neg) Acetaminophen (10-30) ug/ml Urine Barbiturates (Neg) Ur Phencyclidine (PCP) (Neg) U Amphetamin/Meth Scrn (Neg) MDMA (Ecstasy) Screen (Neg) U Benzodiazepines Scrn (Neg) Ur Cocaine Metabolite (Neg) U Marijuana (THC) Screen (Neg) Ethyl Alcohol mg/dL (0-3) mg/dl 05/18/19 05/18/19 05/18/19 Range/Units 21:11 21:26 21:26 WBC (4.8-10.8) K/uL RBC (4.2-5.4) M/uL Hgb (12.0-16.0) g/dL POC Hgb (12.0-16.0) g/dl Hct (37-47) % POC Hct (37-47) % MCV (80-100) fL MCH (25-34) pg MCHC (32-36) g/dL RDW Std Deviation (36.4-46.3) fL RDW Coeff of Eliel (11.5-14.5) % Plt Count (130-400) K/uL MPV (7.4-10.4) fL Immature Gran % (Auto) % Neut % (Auto) % Lymph % (Auto) % [place] % (Auto) % Eos % (Auto) % Baso % (Auto) % Immature Gran # (Auto) (0.00-0.02) K/uL Neut # (Auto) (1.4-6.5) K/uL Lymph # (Auto) (1.2-3.4) K/uL [place] # (Auto) (0.11-0.59) K/uL Eos # (Auto) (0-0.5) K/uL Baso # (Auto) (0-0.2) K/uL ESR (0-21) mm/hr PT (9.0-12.0) Seconds INR (0.9-1.1) APTT (21.0-31.0) Seconds PTT Ratio VBG pH 7.30 L (7.36-7.41) VBG pCO2 44 (38-50) mmHg VBG pO2 73 mmHg VBG HCO3 21 mmol/L VBG O2 Saturation 92.7 % VBG Base Excess -4.9 mEq/L Barometric Pressure 734.5 mm/Hg POC Sodium (135-144) mEq/L Sodium (136-145) mmol/L POC Potassium (3.3-5.0) mEq/L Potassium (3.5-5.1) mmol/L POC Chloride (101-112) mEq/L Chloride (98-107) mmol/L Carbon Dioxide (21-32) mmol/L POC Total CO2 (24-31) mEq/l Anion Gap (3-11) POC Anion Gap (16-25) mmol/L POC BUN (7-18) mg/dl BUN (7-18) mg/dl Creatinine (0.6-1.2) mg/dl POC Creatinine (0.6-1.3) mg/dl Est Cr Clr Drug Dosing ml/min Est GFR ( Amer) Est GFR (Non-Af Amer) BUN/Creatinine Ratio (10-20) Glucose (70-99) mg/dl POC Glucose (other) (70-99) mg/dl Osmolality (280-300) mOsm/kg POC Lactic Acid Sergio 1.84 H (0.90-1.70) mmol/L Lactate (0.4-2.0) mmol/L Calcium (8.5-10.1) mg/dl POC Ioniz Calcium [place] (1.12-1.32) mmol/l Magnesium (1.8-2.4) mg/dl Total Bilirubin (0.2-1) mg/dl AST (15-37) U/L ALT (12-78) U/L Alkaline Phosphatase (45-117) U/L C-Reactive Protein (0-0.29) mg/dl Total Protein (6.4-8.2) gm/dl Albumin (3.4-5.0) gm/dl Globulin (2.5-4.0) gm/dl Albumin/Globulin Ratio (0.9-2) Procalcitonin (0-0.5) ng/ml Urine Color Urine Appearance (Clear) Urine pH (4.5-7.5) Ur Specific [place] (1.000-1.030) Urine Protein (Negative) Urine Glucose (UA) (Negative) Urine Ketones (Negative) Urine Blood (Negative) Urine Nitrite (Negative) Urine Bilirubin (Negative) Urine Urobilinogen (Negative) Ur Leukocyte Esterase (Negative) Urine Osmolality (500-800) mOsm/kg Salicylates (2.8-20) mg/dl Urine Opiates Screen (Neg) Ur Methadone, Qual (Neg) Acetaminophen (10-30) ug/ml Urine Barbiturates (Neg) Ur Phencyclidine (PCP) (Neg) U Amphetamin/Meth Scrn (Neg) MDMA (Ecstasy) Screen (Neg) U Benzodiazepines Scrn (Neg) Ur Cocaine Metabolite (Neg) U Marijuana (THC) Screen (Neg) Ethyl Alcohol mg/dL < 3.0 (0-3) mg/dl Imaging Data Radiologist's Impression: Radiology results as stated below per my review and the radiologist's interpretation: CT OF THE HEAD WITHOUT CONTRAST CLINICAL HISTORY: Altered mental status. COMPARISON STUDY: No previous studies for comparison. CT DOSE: 537.48 mGy.cm TECHNIQUE: Helical axial images of the head were obtained without IV contrast. Automated exposure control was utilized for the study. A dose lowering technique was utilized adhering to the principles of ALARA. FINDINGS: No acute intracranial hemorrhage, midline shift or mass effect is present. The ventricular system is unremarkable. The basilar cisterns are patent. No extra-axial collections are present. There are no findings to suggest acute dural sinus thrombosis or acute territorial infarct. No significant calvarial abnormalities are present. Note is made of mild ethmoid sinus mucosal thickening. IMPRESSION: No acute intracranial findings. Electronically signed by: Jose L Strong M.D. 05/18/2019 9:27 PM XR chest 1V portable CLINICAL HISTORY: Sepsis COMPARISON STUDY: No previous studies for comparison. FINDINGS: Lung volumes are mildly diminished. There is mild left basilar opacity. Right lung is clear. There is no evidence for pulmonary edema. Cardiac size is normal. Mediastinal contours are unremarkable. IMPRESSION: Low lung volumes with mild left basilar opacity which may reflect pneumonia or atelectasis. Radiographic follow up is recommended. Electronically signed by: Jose L Strong M.D. 05/18/2019 9:37 PM ECG Data Attestation: I personally reviewed and interpreted this ECG as follows: Indication: altered mental status Rate (beats per minute): 95 Rhythm: normal sinus Findings: no ST depression, no ST elevation and no ectopy Comparison ECG Date: no prior available Blood Pressure Blood Pressure Findings: Elevated blood pressure Blood Pressure Disposition: Referred to patients primary care provider [facility] Narrative The patient is a 43-year-old female who presented to the emergency department for an evaluation of altered mental status. The patient presented to the emergency department with very little history. Additional history is obtained from the prehospital personnel. The patient did not have any signs of trauma. There is no history of trauma. The patient would not answer questions appropriately. She was given Narcan prior to arrival with very little change in her presentation. I discussed the patient's laboratory and radiographic studies with her. Given her current alteration in her mental status I also discussed her case with the on-call [facility] hospitalist group. They have agreed to evaluate the patient in the emergency department for further management disposition. The patient did not appear to have any acute ab normality on CT the head. She has no definite source of infection. Impression & Plan Altered mental status, Lethargy, Anemia, Hypothermia Discharge Plan Visit Data *Final* Discharge Date/Time: 05/19/19 00:52 Chief Complaint: Altered Mental Status Stated Complaint: AMS ED Provider: Atilio Santiago Discharge Problem: Altered mental status, Lethargy, Anemia, Hypothermia Patient Disposition: Admitted As Inpatient Discharge Instructions Interventions: ED Discharge Assessment Last Done: 05/19/19 00:52 Discharge Problem: Altered mental status Qualifiers: Altered mental status type: unspecified Qualified Code(s): R41.82 - Altered mental status, unspecified Anemia Qualifiers: Anemia type: unspecified type Qualified Code(s): D64.9 - Anemia, unspecified Hypothermia Qualifiers: Encounter type: initial encounter Qualified Code(s): T68.XXXA - Hypothermia, initial encounter The scribe's documentation has been prepared under my direction and personally reviewed by me in its entirety. I confirm that the note above accurately reflects all work, treatment, procedures, and medical decision making performed by me.
[2019-05-18 21:23] LABS: iSTAT Creatinine 0.7 mg/dl (0.6-1.3); iSTAT Hemoglobin 9.9 g/dl (12.0-16.0); iSTAT Ionized Calcium 1.21 mmol/l (1.12-1.32); iSTAT Potassium 3.2 mEq/L (3.3-5.0)
[2019-05-18 21:23] LABS: Appearance Urine Clear (Clear); Bilirubin Urine Negative (Negative); Blood Urine Negative (Negative); Color Urine Yellow; Glucose Urine UA Negative (Negative); Ketones Urine Negative (Negative); Leukocyte Esterase Urine Negative (Negative); Nitrite Urine Negative (Negative); Protein Urine Negative (Negative); Specific Gravity Urine 1.024 (1.000-1.030); Urobilinogen Urine Negative (Negative)
[2019-05-18 21:28] LABS: INR 1.1 (0.9-1.1); Partial Thromboplastin Ratio 0.8; Partial Thromboplastin Time 22.6 Seconds (21.0-31.0); Prothrombin Time 11.3 Seconds (9.0-12.0)
--- NOTE | 2019-05-18 21:29 | CT Scan Report ---
CT OF THE HEAD WITHOUT CONTRAST CLINICAL HISTORY: Altered mental status. COMPARISON STUDY: No previous studies for comparison. CT DOSE: 537.48 mGy.cm TECHNIQUE: Helical axial images of the head were obtained without IV contrast. Automated exposure con trol was utilized for the study. A dose lowering technique was utilized adhering to the principles o f ALARA. FINDINGS: No acute intracranial hemorrhage, midline shift or mass effect is present. The ventricular system is unremarkable. The basilar cisterns are patent. No extra-axial collections are present. Ther e are no findings to suggest acute dural sinus thrombosis or acute territorial infarct. No significan t calvarial abnormalities are present. Note is made of mild ethmoid sinus mucosal thickening. IMPRESSION: No acute intracranial findings. Electronically signed by: Jose L Strong M.D. 05/18/2019 9:27 PM
[2019-05-18 21:36] LABS: Alanine Aminotransferase 24 U/L (12-78); Albumin Level 3.3 gm/dl (3.4-5.0); Aspartate Aminotransferase 24 U/L (15-37); BUN Creatinine Ratio 17.4 (10-20); Blood Urea Nitrogen 12 mg/dl (7-18); C Reactive Protein < 0.29 mg/dl (0-0.29); Calcium 7.7 mg/dl (8.5-10.1); Carbon Dioxide 22 mmol/L (21-32); Chloride 116 mmol/L (98-107); Creatinine Clr Calc Pharmacy 112.7 ml/min; Est GFR (African American) 120.1; Est GFR (Non-African American) 103.6; Glucose 105 mg/dl (70-99); Magnesium 1.8 mg/dl (1.8-2.4); Potassium 3.2 mmol/L (3.5-5.1); Sodium 143 mmol/L (136-145)
[2019-05-18 21:39] LABS: Albumin Globulin Ratio 1.2 (0.9-2); Alkaline Phosphatase 78 U/L (45-117); Bilirubin,Total 0.3 mg/dl (0.2-1); Globulin 2.7 gm/dl (2.5-4.0)
--- NOTE | 2019-05-18 21:39 | XRay Report ---
XR chest 1V portable CLINICAL HISTORY: Sepsis COMPARISON STUDY: No previous studies for comparison. FINDINGS: Lung volumes are mildly diminished. There is mild left basilar opacity. Right lung is clear . There is no evidence for pulmonary edema. Cardiac size is normal. Mediastinal contours are unremark able. IMPRESSION: Low lung volumes with mild left basilar opacity which may reflect pneumonia or atelectas is. Radiographic follow up is recommended. Electronically signed by: Jose L Strong M.D. 05/18/2019 9:37 PM
[2019-05-18 21:42] LABS: Amphetamines+Metham, Urine Neg (Neg); Barbiturates, Urine Neg (Neg); Benzodiazepine, Urine Neg (Neg); Cocaine, Urine Neg (Neg); MDMA (Ecstacy), Urine Neg (Neg); Methadone, Urine Neg (Neg); Opiate, Urine Neg (Neg); Phencyclidine, Urine Neg (Neg)
[2019-05-18 21:45] LABS: Acetaminophen 24 ug/ml (10-30); Salicylate < 1.7 mg/dl (2.8-20)
[2019-05-18 21:50] LABS: Base Excess VBG -4.9 mEq/L; Oxygen Saturation VBG 92.7 %; pH VBG 7.3 (7.36-7.41)
--- NOTE | 2019-05-19 00:31 | History & Physical Report ---
Date of Service May 19, 2019 Assessment & Plan (1) Altered mental status: 43-year-old female past medical history of borderline personality disorder, bipolar type I, heroin abuse, depression, anxiety, seizures, hypertension, CKD, chronic anemia presents unresponsive. Altered mental status, unknown etiology Suspect acute intoxication Urine tox was negative Satting well on room air, normal respirations Continue to follow on telemetry If respirations decreased less than 10 or the patient begins to desat will give Narcan Normal sinus rhythm, narrow complex 95 heart rate, QTC is 510 QTC is prolonged from previous EKGs Give mag, potassium with fluids, follow BMP Depression/anxiety/bipolar 1/borderline personality disorder Hold home medications GERD Hold home medications CODE STATUSfull, did not discuss with patient DVT prophylaxisSCDs relation once mental status recovers Dietn.p.o. (2) Lethargy: (3) Anemia: (4) Depression: (5) Anxiety: (6) Bipolar 1 disorder: (7) Borderline personality disorder: (8) Drug abuse: History of Present Illness Primary Care Provider: NO PCP 43-year-old female past medical history of borderline personality disorder, bipolar type I, heroin abuse, depression, anxiety, seizures, hypertension, CKD, chronic anemia presents unresponsive. The story from EMS was that the patient was found with her 11-year-old son unresponsive at home. There is no other information regarding her admission. The patient grunts ask if she can hear me. Unable to open her eyes or answer questions. Allergies Allergy/AdvReac Type Severity Reaction Status Date / Time bupropion [From Wellbutrin] Allergy Unknown Verified 05/18/19 22:47 colestipol Allergy Unknown Verified 05/18/19 22:46 morphine Allergy Unknown Verified 05/18/19 22:46 peanut Allergy Unknown Verified 05/18/19 22:46 promethazine [From Phenergan] Allergy Unknown Verified 05/18/19 22:47 Home Medications Home Medications Medication Instructions Recorded Confirmed Type acetaminophen [Tylenol Extra 500 mg PO Q6H PRN 05/18/19 05/18/19 History Strength] calcium citrate malate-vit D3 2 tab PO BID 05/18/19 05/18/19 History cyanocobalamin (vitamin B-12) 1,000 mcg IM MONTHLY 05/18/19 05/18/19 History cyclobenzaprine 5 mg PO HS PRN 05/18/19 05/18/19 History doxepin 20 mg PO HS 05/18/19 05/18/19 History ergocalciferol (vitamin D2) 50,000 unit PO 2XWK 05/18/19 05/18/19 History [Vitamin D2] gabapentin 600 mg PO TID 05/18/19 05/18/19 History metoclopramide HCl [Reglan] 5 mg PO UD 05/18/19 05/18/19 History mirtazapine [Remeron] 30 mg PO HS 05/18/19 05/18/19 History mv. min [id number] [AquADEKs] 1 tab PO DAILY 05/18/19 05/18/19 History pantoprazole [Protonix] 40 mg PO DAILY 05/18/19 05/18/19 History paroxetine HCl [Paxil] 30 mg PO DAILY 05/18/19 05/18/19 History valacyclovir [Valtrex] 1,000 mg PO UD 05/18/19 05/18/19 History vitamin A 10,000 unit PO DIRECTED 05/18/19 05/18/19 History Past Med/Surg History Social History Feels Safe at Home: Yes Smoking Status: Unknown if ever smoked Review of Systems Review of Systems: Unobtainable due to cognitive status Physical Exam Constitutional: WD/WN, vitals as above Eyes: PERRL, conjunctivae normal, anicteric sclerae ENMT: external ear and nose normal, oropharynx normal Neck: trachea midline, no thyromegaly Respiratory: normal respiratory effort, lungs clear to auscultation Cardiovascular: RRR, no murmur, no edema Gastrointestinal (Abdomen): normal bowel sounds, soft, nontender, no hepatosplenomegaly Musculoskeletal: no cyanosis or clubbing, extremities motor strength 5/5 Skin: no rashes, warm and dry Neurologic: + obtunded; + abnormal touch/pain/proprioception and + not awake Cranial Nerves: PERRL Psychiatric: Orientation: + not alert and + not oriented x 3 Results & Data Vital Signs (Past 12 Hours) Vital Signs Temp Pulse Pulse Resp BP BP Pulse Ox 05/18/19 23:30 79 17 123/77 93 05/18/19 23:00 80 17 125/72 94 05/18/19 22:30 81 16 126/77 94 05/18/19 21:41 84 16 121/68 94 05/18/19 21:00 93 H 18 93 05/18/19 20:50 35.7 C L 93 H 18 129/81 93 Code Status & VTE Plan Code Status Full code VTE Prophylaxis Plan VTE Prophylaxis will be ordered: Yes Supervising Physician Co-Signing Physician Notes Patient seen and examined, chart reviewed, case discussed with Dr. Kirkland and I agree with his assessment and plan as documented above. Briefly, patient is a 43yo C female with significant psychiatric history, CKD and anemia presenting with AMS/obtundation. Patient found at home, unresponsive. History obtained through chart review and discussion with ER staff. Patient does not offer details of history. On physical exam she is afebrile, HD stable, RR of 16 saturating 95% on room air Gen: somnolent, opens eyes to verbal command, squeezes hands and wiggles toes otherwise does not follow commands HEENT: NC/AT, facial bones stable, no bruising/bleeding or evidence of head trauma, PERRL, anicteric sclera, conjunctiva without injection, nares patent, MMM, neck supple, trachea midline Heart: +S1/S2 with S2 splitting with respiration, regular, no m/r/g Lungs: Equal air entry bilaterally, no rales/rhonchi/wheezes anteriorly Abd: +BS, soft, NT/ND Ext: warm, 2+ pulses, no edema Neuro: patient opens eyes to verbal commands, uses inappropriate words, obeys commands (GCS 12) Labs and images reviewed. leukopenic WBC=3.42, macrocytic anemia Hgb=10.1, Hct=31.4. pH on VBG=7.3. UTox=negative, no anion gap, no osmolar gap CT Head negative CXR possible PNA in left base vs atelectasis EKG with NSR, narrow QRS interval, prolonged QT Assessment/Plan: 43yo C female with significant psychiatric history presenting with obtundation. Initial workup with stable VS, labs with no obvious source of AMS. Suspect ingestion/overdose, ?intentional or accidental. Per PDMP review patient with multiple prescriptions for opiates. She is also on sedating agents at home to include Flexeril/Doxepin/Gabapentin/Remeron/Paxil. At present she is protecting her airway and has an adequate respiratory rate. HD stable. Following some commands - her exam seems to be improving with time. -Observation with telemetry monitoring -Hold sedating agents -Hold QT prolonging agents -IVF and electrolyte repletion -Repeat VBG/Lactate with AM labs -Repeat EKG in AM to assess QT interval -If patient fails to improve would consider additional workup - MRI, LP -Remainder of plan as above PATIENT HAS TWO CHARTS OPEN - FOR PAST NOTES, LABS, ETC MUST OPEN CHART FROM UNTIL THE TWO ARE MERGED PG Care Time/CCT Total # of Minutes Spent Total Time Spent with Patient: Total time spent is greater than 50% in coordination of care (as documented) at patient's floor/unit and/or counseling patient: Resident Activity Tracking Resident Involvement: Resident Care Provided Care Provided: Adult Hospital Medicine (1) Anemia Anemia type: unspecified type Qualified Code(s): D64.9 - Anemia, unspecified (2) Altered mental status Altered mental status type: unspecified Qualified Code(s): R41.82 - Altered mental status, unspecified
[2019-05-19] MEDS ORDERED: MAGNESIUM SULFATE / D5W 1 GM/100 ML BAG IV ONE (01:30)
[2019-05-19] MEDS: D5NSS + 20MEQ KCL 20 MEQ/1,000 ML BAG IV SCH ×2 (01:35→10:28)
[2019-05-19 06:15] LABS: Base Excess VBG 0.2 mEq/L; Oxygen Saturation VBG 65.3 %; pH VBG 7.35 (7.36-7.41)
[2019-05-19 06:16] LABS: Eosinophils # (auto) 0.04 K/uL (0-0.5); Hematocrit (blood only) 32.4 % (37-47); Hemoglobin 10.3 g/dL (12.0-16.0); Lymphocytes # (auto) 1.19 K/uL (1.2-3.4); Lymphocytes % (auto) 28.7 %; Mean Corpuscular Hemoglobin 32.7 pg (25-34); Mean Corpuscular Hgb Conc 31.8 g/dL (32-36); Mean Corpuscular Volume 102.9 fL (80-100); Monocytes # (auto) 0.36 K/uL (0.11-0.59); Monocytes % (auto) 8.7 %; Neutrophils # (auto) 2.55 K/uL (1.4-6.5); Neutrophils % (auto) 61.6 %; Platelet Count 136 K/uL (130-400); RDW Coefficient of Variation 13.4 % (11.5-14.5); RDW Standard Deviation 50.2 fL (36.4-46.3); Red Blood Count 3.15 M/uL (4.2-5.4); White Blood Count 4.14 K/uL (4.8-10.8)
[2019-05-19 06:43] LABS: BUN Creatinine Ratio 20.5 (10-20); Creatinine Clr Calc Pharmacy 152.8 ml/min; Est GFR (African American) 134.7; Est GFR (Non-African American) 116.2; Magnesium 2.3 mg/dl (1.8-2.4); Potassium 3.8 mmol/L (3.5-5.1)
[2019-05-19 06:56] LABS: Albumin Globulin Ratio 1.1 (0.9-2); Bilirubin,Total 0.3 mg/dl (0.2-1); Globulin 2.7 gm/dl (2.5-4.0); Total Protein 5.7 gm/dl (6.4-8.2)
--- NOTE | 2019-05-19 15:08 | Discharge Summary ---
Date of Service May 19, 2019 Admission HPI Per Admitting Provider 43-year-old female past medical history of borderline personality disorder, bipolar type I, heroin abuse, depression, anxiety, seizures, hypertension, CKD, chronic anemia presents unresponsive. The story from EMS was that the patient was found with her 11-year-old son unresponsive at home. There is no other information regarding her admission. The patient grunts ask if she can hear me. Unable to open her eyes or answer questions. Admission Exam Per Admitting Provider Constitutional: WD/WN, vitals as above Eyes: PERRL, conjunctivae normal, anicteric sclerae ENMT: external ear and nose normal, oropharynx normal Neck: trachea midline, no thyromegaly Respiratory: normal respiratory effort, lungs clear to auscultation Cardiovascular: RRR, no murmur, no edema Gastrointestinal (Abdomen): normal bowel sounds, soft, nontender, no hepatosplenomegaly Musculoskeletal: no cyanosis or clubbing, extremities motor strength 5/5 Skin: no rashes, warm and dry Neurologic: + obtunded; + abnormal touch/pain/proprioception and + not awake Cranial Nerves: PERRL Psychiatric: Orientation: + not alert and + not oriented x 3 Principal Diagnosis Altered Mental Status, ?Seizure Discharge Exam Constitutional WD/WN, vitals as above no acute distress Eyes PERRL, conjunctivae normal, anicteric sclerae normal visual hubbard by confrontation ENMT external ear and nose normal, oropharynx normal Neck trachea midline, no thyromegaly Respiratory normal respiratory effort, lungs clear to auscultation Cardiovascular RRR, no murmur, no edema Vessels: posterior tibial pulses present, dorsalis pedis pulses present and radial pulses present; no JVD Gastrointestinal (Abdomen) normal bowel sounds, soft, nontender, no hepatosplenomegaly Musculoskeletal no cyanosis or clubbing, extremities motor strength 5/5 Skin no rashes, warm and dry Neurologic PERRL, EOMI, accommodation nl, no face palsy, no dysarthria Speech / Cognition: normal speech Motor/Sensory: no tremor and no pronator drift Psychiatric A+Ox3, euthymic affect Discharge Data Allergies Allergy/AdvReac Type Severity Reaction Status Date / Time morphine Allergy Severe TONGUE Verified 05/20/19 07:53 SWELLING, difficulty breathing/wheezing colestipol Allergy Intermediate red rash Verified 05/20/19 07:53 (no itching) cat dander Allergy Unknown ITCHY Verified 05/20/19 07:53 WATERY EYES nut - unspecified Allergy Unknown skin test Verified 05/20/19 07:53 showed nut allergy peanut Allergy Unknown Verified 05/20/19 07:53 scopolamine AdvReac Severe Seizure Verified 05/20/19 07:53 promethazine AdvReac Intermediate "CAN'T SIT Verified 05/20/19 07:53 STILL" bupropion AdvReac Unknown Seizure Verified 05/20/19 07:53 Consultations 05/18/19 23:03 ED Decision to Admit Stat 05/19/19 01:15 Consult Case Management - Discharge Planning Routine Ordered Studies 05/18/19 20:57 CT head/brain wo con Stat Hospital Course (1) Altered mental status: 43-year-old female past medical history of borderline personality disorder, bipolar type I, heroin abuse s/p cessation 2013, depression, anxiety, seizures, hypertension, CKD, chronic anemia presents unresponsive. Altered mental status, unknown etiology Negative Urine Tox Normal sinus rhythm, narrow complex 95 heart rate, QTC is prolonged 510 on admission, -- Gave mag, potassium with fluids. QTC 457 on AM recheck EKG -Discussed case with cardiology, unlikely secondary to Ventricular Arrhythmia due to patients duration of unresponsiveness. -With h/o gastric bypass - possible concern of hypotension/hypoglycemia ?possibly leading to presenting symptoms. -Consider EEG on discharge -Patient doing significantly better this AM, awake and alert, holding conversation without difficulties, no notable neurologic abnormalities. -Patient has appointment with PCP the following morning 05/20/19. -Discharged for further workup in the outpatient setting, patient instructed not to drive until completed evaluations, pt noted she did not have a license. Depression/anxiety/bipolar 1/borderline personality disorder Hold home medications, continue upon discharge with no adjustments at this time. -Discussed case with Psychiatry, noted that it may be more related to a seizure disorder rather than psych/medications, rec further work up with EEG in the outpatient setting and neurology follow up. GERD Continue home medications upon discharge, held while inpatient. CODE STATUSfull DVT prophylaxisSCDs DietFull upon waking Dispo - Home (2) Lethargy: (3) Anemia: (4) Depression: (5) Anxiety: (6) Bipolar 1 disorder: (7) Borderline personality disorder: (8) Drug abuse: Total Time Total Time Spent Total Time Spent (In Minutes): see attending attestation Discharge Plan Discharge Items Patient Disposition: Home - Self-Care Reason For Visit: ALTERED MENTAL STATUS Discharge Diagnosis: Altered Mental Status Condition on Discharge: Good Activity: Resume your previous activity Non-emergency contact: Primary Care Provider Call non-emergency contact if: your symptoms worsen Follow-up/Referrals: PCP,NO [Primary Care Provider] - Diet: Regular Addtl Attending Provider Instructions: Ms. Harris, you arrived last night by EMS to [facility] entirely obtunded and unaware of your surroundings. Per the reports, you were able to be aroused and would follow simple commands such as squeezing a finger or blinking an eye, but were otherwise nonresponsive. You underwent several studies including lab screenings, EKGs, and a Head CT. The only positive finding that was noted was that you had some slight QTc prolongation on your EKG at 510 which returned to normal on EKG this morning. You noted that you have had this QTc prolongation issue in the past, and that even then it has not been determined to be caused by anything specific. Upon waking this morning, you noted that you were feeling completely yourself and that you didn't even remember the past 10 hours from the time you went to sit down around 9PM last night to waking up this morning at 7AM. After speaking with Cardiology and Psychiatry, it was determined that you could continue to be evaluated in the outpatient setting. We highly recommend that you continue follow up with your PCP at your set appointment at 8AM tomorrow. We also recommend that you be evaluated by a neurologist in the near future and have an Electroencephalogram (EEG). You can continue your home medications as they are prescribed. Please following the below instructions: -Continue all home medications as per prior to admission. -F/U with your PCP tomorrow, 05/19/19 -Recommend future follow up with a Neurologist to rule out any new seizures you may be having -EEG for further evaluation of possible new onset seizures. -If you have any questions or if your symptoms worsen, please return for evaluation. Pending Studies at Discharge: No Studies:: CT OF THE HEAD WITHOUT CONTRAST CLINICAL HISTORY: Altered mental status. COMPARISON STUDY: No previous studies for comparison. CT DOSE: 537.48 mGy.cm TECHNIQUE: Helical axial images of the head were obtained without IV contrast. Automated exposure control was utilized for the study. A dose lowering technique was utilized adhering to the principles of ALARA. FINDINGS: No acute intracranial hemorrhage, midline shift or mass effect is present. The ventricular system is unremarkable. The basilar cisterns are patent. No extra-axial collections are present. There are no findings to suggest acute dural sinus thrombosis or acute territorial infarct. No significant calvarial abnormalities are present. Note is made of mild ethmoid sinus mucosal thickening. IMPRESSION: No acute intracranial findings. Electronically signed by: Jose L Strong M.D. 05/18/2019 9:27 PM Dictated: 05/18/192125 Stand-Alone Forms: My [facility] [place], Smoking Cessation Medications and DC Order Prescriptions: Continued doxepin 10 mg Capsule 20 mg PO HS RF: 0 acetaminophen [Tylenol Extra Strength] 500 mg Tablet 500 mg PO Q6H PRN (Reason: Pain) RF: 0 metoclopramide HCl [Reglan] 5 mg Tablet 5 mg PO UD RF: 0 paroxetine HCl [Paxil] 30 mg Tablet 30 mg PO DAILY RF: 0 mirtazapine [Remeron] 30 mg Tablet 30 mg PO HS RF: 0 cyclobenzaprine 5 mg Tablet 5 mg PO HS PRN (Reason: Muscle Pain) RF: 0 calcium citrate malate-vit D3 250-100 mg-unit Tablet 2 tab PO BID RF: 0 No Action pantoprazole 40 mg tablet,delayed release (DR/EC) 40 mg PO QAM RF: 0 AquADEKs 100-350-5 mcg-mcg-mg tablet,chewable 1 tab PO DAILY RF: 0 OneTouch Ultra Blue Test Strip strip .ROUTE .MEDSUPPLY Qty: 10 RF: 0 valacyclovir [Valtrex] 1 gram tablet 1,000 mg PO QAM RF: 0 vitamin A 10,000 unit Capsule 20,000 unit PO QAM RF: 0 triamcinolone acetonide 0.025 % Cream 1 applic TOPICAL DAILY PRN (Reason: SKIN ISSUES) RF: 0 cholecalciferol (vitamin D3) 50,000 unit Capsule 50,000 unit PO 2XWK RF: 0 calcium carbonate-vitamin D3 [Calcium 500 + D] 500 mg(1,250mg) -200 unit tablet 2 tab PO BID RF: 0 Flintstones with Iron 18 mg iron Tablet,Chewable 1 tab PO BID RF: 0 acetaminophen 500 mg tablet 1,000 mg PO Q8H PRN (Reason: Fever Or Pain) Qty: 0 RF: 0 gabapentin 300 mg capsule 600 mg PO TID RF: 0 ondansetron HCl [Zofran] 8 mg Tablet 8 mg PO TID PRN (Reason: Nausea) RF: 0 cyanocobalamin (vitamin B-12) 1,000 mcg/mL solution 1,000 mcg IM Q3MO RF: 0 fluticasone propionate [Flonase Allergy Relief] 50 mcg/actuation [place],Suspension 2 spray INTRANASAL DAILY RF: 0 Discharge Orders: Discharge Order (Routine); Ordered 05/19/19 Ordered By: Rafael Stark Admission Data Admit Date/Time: 05/19/19 00:16 Attending Provider: Neva Brito Admit Provider: Don Kirkland Primary Care Provider: PCP,EMMANUEL Other Providers: Jessica Klein Other Interventions: Discharge Summary Assessment (RN) Last Done: 05/19/19 15:49 DC Date/Time DO NOT enter until pt leaves facility: 05/19/19 18:38 Supervising Physician Co-Signing Physician Notes Resident Physician Supervision Note: I independently interviewed and examined the patient and verified the canales history and physical, reviewed labs and image studies, discussed the case with the resident Dr. Stark and agree with the findings and care plan. Time spent in discharge 35 min Resident Activity Tracking Resident Involvement: Resident Care Provided Care Provided: Adult Hospital Medicine
== END 2019-05-19 18:38 | disposition home or self-care (01) ==
LOC: EDBD 20:41 → 2N 20:41 → ED 20:41 → MERGE 05-19 00:16 → SUATTDRO 05-19 00:16 → 2N 05-19 00:52

== ENCOUNTER 2021-05-28 06:48 | Inpatient (IN) ==
[2021-05-28] MEDS ORDERED: LORazepam 1 MG TAB PO STA (07:04)
--- NOTE | 2021-05-28 07:22 | Emergency Department Note ---
Impression & Plan Depression with suicidal ideation, Anxiety, Hypokalemia ED Provider Note NAME: CARLA HORNE AGE: 45 SEX: F : 1975 ARRIVES VIA: Ambulance INFORMANT: Patient, ED PROVIDER(S): Atilio Santiago DO CHIEF COMPLAINT: Overdose HPI: The patient is a 45-year-old female who presented to the emergency department for an evaluation of depression anxiety and suicidal ideation. The patient arrived via EMS but also police were accompanying the patient. The patient states that she has been having worsening symptoms of depression anxiety and suicidal ideation over the last few months. She states nothing happened acutely. She states she is been compliant with her usual medications but last evening at approximately 9 PM she took 20 mg of Ativan which is her prescribed medication. She states she was thinking about not waking up and was trying to hurt her self. Her significant other became aware of this this morning when she was crying in her room and called 911. The patient had no emesis. She states that she has been feeling well otherwise. She denies having any fever or cough. She has had similar symptoms in the past but not for a few years. She was admitted at that time. She denies having any drug or alcohol use. She denies having any trauma. She states she still has suicidal ideation and anxiety. ROS: See above HPI for pertinent positives & negatives. A total of 10 systems reviewed and were otherwise negative. PAST MEDICAL HISTORY: See Below PAST SURGICAL HISTORY: See Below FAMILY HISTORY: See Below SOCIAL HISTORY: See Below HOME MEDICATIONS: See Below ALLERGIES: See Below VITALS: See Below PHYSICAL EXAMINATION: GENERAL: The patient is awake and alert. The patient is very tearful. EYES: The conjunctivae are clear. The pupils are round and reactive. EARS, NOSE, MOUTH AND THROAT: The nose is without any evidence of any deformity. NECK: The neck is nontender and supple. RESPIRATORY: Normal respiratory effort is noted there is no evidence of wheezing rhonchi or rales CARDIOVASCULAR: Regular rate and rhythm noted there no murmurs rubs or gallops normal S1 normal S2. GASTROINTESTINAL: The abdomen is soft. Abdomen is nontender. MUSCULOSKELETAL/EXTREMITIES: There is no evidence of gross deformity full range of motion is noted in the hips and shoulders. SKIN: There is no obvious evidence of any rash. There are no petechiae, pallor or cyanosis noted. NEUROLOGIC: Patient is awake alert and oriented x3 strength is symmetric patellar reflexes are 2+ bilaterally PSYCH: The patient is awake and alert. She makes good eye contact. She is very tearful and admitting to suicidal ideation. MEDICAL DECISION MAKING: The patient is a 45-year-old female who presented to the emergency department for an evaluation of suicidal gesture. The patient admitted that she took a large amount of her prescription medication yesterday. She has been very depressed and having anxiety recently. The patient was very tearful and anxious in the emergency department. She was treated for anxiety in the emergency department. She was also given potassium replacement. The patient was medically cleared in the emergency department. She was evaluated by the mental health casey saw operator. She was felt to be a good candidate for inpatient management and the patient was agreeable to this plan. She was evaluated by 3 S. and was felt to be a good candidate. I did sign the patient's 201. Triage Nursing notes reviewed. Prior medical records reviewed Vital Signs: reviewed and remarkable for no significant abnormalities Differential diagnosis: Overdose, toxicologic, infection, hypoglycemia, electrolyte abnormalities, cardiac sources, intracerebral event, neurologic, trauma, as well as other pathologies. ER treatment provided: See below Diagnostics interpreted by me: ECG: EKG was obtained in the emergency department. My interpretation is normal sinus rhythm at 72 bpm. There is no ectopy. There is no acute ST segment abnormalities noted. QTC was 446 ms Laboratory studies: As stated above and show below. Imaging studies: See below Consultation(s): none Past Med/Surg History Medical History Agoraphobia (Unknown) Allergic rhinitis Alopecia areata Anxiety Arthritis Benzodiazepine abuse Bipolar I disorder (10/11/12) Borderline personality disorder Bowel perforation Chronic abdominal pain Chronic anemia Chronic diarrhea Colon cancer Depression Diabetes Environmental allergies Factitious disorder H/O drug abuse heroin, alcohol, opiates, cocaine, benzo's Heroin abuse History of seizures LAST SEIZURE NOTED IN ED 2018 History of suicidal ideation Hx of primary hypertension Lumbar facet joint syndrome Migraine Opiate addiction Pneumonia due to 2019-nCoV Polycystic kidney disease, adult type (Unknown) Postgastric surgery syndrome (Unknown) Seasonal allergies Seizures Stomach ulcer Surgical History H/O colonoscopy H/O esophagogastroduodenoscopy H/O exploratory laparotomy "2009, 2010, 2012" H/O gastric bypass H/O ventral hernia repair H/O wisdom tooth extraction History of endometrial ablation History of esophageal dilatation "2009" History of partial gastrectomy Hx of cholecystectomy Hx of hysterectomy S/P foot surgery S/P panniculectomy "2010" S/P partial gastrectomy Status post unilateral salpingo-oophorectomy Family History Father Colorectal cancer Myocardial infarction Diabetes Stroke Alcohol abuse Cardiac disorder Mother Cancer Hypertension Alcohol abuse Anxiety Grandfather Myocardial infarction Diabetes Grandmother Breast cancer Diabetes Aunt Breast cancer Other Colon cancer Gallbladder disease Heart disease Lung disease Denies family history of Ovarian cancer Prostate cancer Social History Smoking Status: Never smoker Second Hand Exposure: No; Hx Alcohol Use: No Hx Substance Use: Yes Substance Use Type Other:: history of heroin, last used 2012 Preferred Language: Liberian Communication Ability: Effective Inventory Management Specialist Required: No Beliefs That Will Affect Care: None marital status: Current Living Situation: Other Current Living Situation Comment: lives with roommate current occupational status: employed 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 Feels Safe at Home: Yes Childhood Exposure to Second-Hand Smoke: Yes Dental Care, Regularly: Yes Physical Activity Frequency: Daily Seatbelt Use: always Sunscreen Use: No Assistive Devices: Glasses Allergies Allergies Allergy/AdvReac Type Severity Reaction Status Date / Time morphine Allergy Severe TONGUE Verified 05/28/21 08:24 SWELLING, difficulty breathing/wheezing colestipol Allergy Intermediate red rash Verified 05/28/21 08:24 (no itching) cat dander Allergy Unknown ITCHY Verified 05/28/21 08:24 WATERY EYES nut - unspecified Allergy Unknown skin test Verified 05/28/21 08:24 showed nut allergy peanut Allergy Unknown Verified 05/28/21 08:24 scopolamine AdvReac Severe Seizure Verified 05/28/21 08:24 promethazine AdvReac Intermediate "CAN'T SIT Verified 05/28/21 08:24 STILL" bupropion AdvReac Unknown Seizure Verified 05/28/21 08:24 Home Meds Home Medications Medication Instructions Recorded Confirmed cholecalciferol (vitamin D3) 1,250 50,000 unit PO MOFR 05/19/18 05/28/21 mcg (50,000 unit) capsule pediatric multivit no.79-ferrous 1 tab PO BID 01/10/19 05/28/21 fumarate 18 mg iron chewable tablet (Flintstones with Iron) fluticasone propionate 50 2 spray INTRANASAL QAM 02/15/19 05/28/21 mcg/actuation nasal spray,suspension (Flonase Allergy Relief) valacyclovir 1 gram tablet 1,000 mg PO QAM tab 04/09/19 05/28/21 (Valtrex) mirtazapine 30 mg tablet (Remeron) 30 mg PO HS 05/18/19 05/28/21 cyanocobalamin (vitamin B-12) 1,000 mcg IM Q3MO ml 05/20/19 05/28/21 1,000 mcg/mL injection solution vitamin A 10,000 unit capsule 10,000 units PO TID cap 08/29/19 05/28/21 hydroxyzine HCl 25 mg tablet 25 - 50 mg PO HS PRN 09/22/19 05/28/21 clonidine HCl 0.1 mg tablet 0.1 mg PO HS 12/03/19 05/28/21 copper gluconate 2 mg tablet 2 mg PO QAM 12/03/19 05/28/21 albuterol sulfate 90 mcg/actuation 2 puff INH Q4 PRN 09/17/20 05/28/21 aerosol inhaler (ProAir HFA) lorazepam 1 mg tablet 1 mg PO DAILY PRN 09/23/20 05/28/21 zinc acetate 25 mg (zinc) capsule 50 mg PO QAM cap 09/23/20 05/28/21 lipase 3,000-protease 1 - 2 cap PO .COMPLEX cap 10/28/20 05/28/21 9,500-amylase 15,000 unit capsule, delayed rel (Creon) ferrous sulfate 250 mg (50 mg 250 mg PO BID tab 02/22/21 05/28/21 iron) tablet,extended release brexpiprazole 3 mg tablet (Rexulti) 3 mg PO HS 03/10/21 05/28/21 nortriptyline 50 mg capsule 100 mg PO HS 03/10/21 05/28/21 mirtazapine 15 mg tablet 15 mg PO HS 03/18/21 05/28/21 lidocaine HCl 3 % topical cream 1 applic TOPICAL DAILY PRN 05/28/21 05/28/21 prucalopride 2 mg tablet 2 mg PO DAILY 05/28/21 05/28/21 (Motegrity) solifenacin 10 mg tablet (Vesicare) 10 mg PO QAM 05/28/21 05/28/21 Results & Data (ED) Vital Signs Vital Signs - 24 hr 05/28/21 06:51 05/28/21 07:19 05/28/21 07:59 Temperature 36.7 C Temperature Source Oral Pulse Rate 76 Pulse Rate [Finger] 75 Pulse Rate from SpO2 Sensor Respiratory Rate 18 18 Respiratory Effort / Characteristics Non-Labored Spontaneous Respiratory Depth Normal Blood Pressure 145/91 H Blood Pressure [Left Arm] 135/83 Blood Pressure Mean 109 Blood Pressure Mean [Left Arm] 100 Pulse Oximetry 96 96 98 Oxygen Delivery Method Room Air Room Air Room Air Sepsis Recent Fever Within 48 Hours No Sepsis New/Unexplained Change in Mental Status N/A Sepsis Action Taken by Nursing No Action Required 05/28/21 08:03 05/28/21 08:30 Temperature Temperature Source Pulse Rate 76 73 Pulse Rate [Finger] Pulse Rate from SpO2 Sensor 76 73 Respiratory Rate 15 21 Respiratory Effort / Characteristics Respiratory Depth Blood Pressure 144/94 H Blood Pressure [Left Arm] Blood Pressure Mean 110 Blood Pressure Mean [Left Arm] Pulse Oximetry 97 98 Oxygen Delivery Method Sepsis Recent Fever Within 48 Hours Sepsis New/Unexplained Change in Mental Status Sepsis Action Taken by Long Term Medications Current Medication List: was personally reviewed by me Laboratory Data Attestation: I reviewed the patient's lab results. Result diagrams: 05/28/21 07:25 05/28/21 07:25 Lab Results 05/28/21 05/28/21 05/28/21 Range/Units 07:21 07:21 07:25 WBC 4.14 L (4.8-10.8) K/uL RBC 3.63 L (4.2-5.4) M/uL Hgb 11.8 L (12.0-16.0) g/dL Hct 35.6 L (37-47) % MCV 98.1 (80-100) fL MCH 32.5 (25-34) pg MCHC 33.1 (32-36) g/dL RDW Std Deviation 49.0 H (36.4-46.3) fL RDW Coeff of Eliel 13.6 (11.5-14.5) % Plt Count 171 (130-400) K/uL MPV 9.8 (7.4-10.4) fL Immature Gran % (Auto) 0.0 % Neut % (Auto) 59.6 % Lymph % (Auto) 28.5 % [place] % (Auto) 9.7 % Eos % (Auto) 2.2 % Baso % (Auto) 0.0 % Neut # (Auto) 2.47 (1.4-6.5) K/uL Lymph # (Auto) 1.18 L (1.2-3.4) K/uL [place] # (Auto) 0.40 (0.11-0.59) K/uL Eos # (Auto) 0.09 (0-0.5) K/uL Baso # (Auto) 0.00 (0-0.2) K/uL Immature Gran # (Auto) 0.00 (0.00-0.02) K/uL Sodium (136-145) mmol/L Potassium (3.5-5.1) mmol/L Chloride (98-107) mmol/L Carbon Dioxide (21-32) mmol/L Anion Gap (3-11) BUN (7-18) mg/dl Creatinine (0.6-1.2) mg/dl Est Cr Clr Drug Dosing ml/min Est GFR ( Amer) ml/min Est GFR (Non-Af Amer) ml/min BUN/Creatinine Ratio (10-20) Glucose (70-99) mg/dl Calcium (8.5-10.1) mg/dl Total Bilirubin (0.2-1) mg/dl AST (15-37) U/L ALT (12-78) U/L Alkaline Phosphatase (45-117) U/L Troponin I (0-0.045) ng/ml Total Protein (6.4-8.2) gm/dl Albumin (3.4-5.0) gm/dl Globulin (2.5-4.0) gm/dl Albumin/Globulin Ratio (0.9-2) TSH (0.300-4.500) uIu/ml HCG, Qual (Negative) Urine Color Yellow Urine Appearance Clear (Clear) Urine pH 6.0 (4.5-7.5) Ur Specific [place] 1.003 (1.000-1.030) Urine Protein Negative (Negative) Urine Glucose (UA) Negative (Negative) Urine Ketones Negative (Negative) Urine Blood Negative (Negative) Urine Nitrite Negative (Negative) Urine Bilirubin Negative (Negative) Urine Urobilinogen Negative (Negative) Ur Leukocyte Esterase Negative (Negative) Salicylates (2.8-20) mg/dl Urine Opiates Screen Neg (Neg) Ur Methadone, Qual Neg (Neg) Acetaminophen (10-30) ug/ml Urine Barbiturates Neg (Neg) Ur Phencyclidine (PCP) Neg (Neg) U Amphetamin/Meth Scrn Neg (Neg) MDMA (Ecstasy) Screen Neg (Neg) U Benzodiazepines Scrn Neg (Neg) Ur Cocaine Metabolite Neg (Neg) U Marijuana (THC) Screen Pos H (Neg) Ethyl Alcohol mg/dL (0-3) mg/dl COVID-19 Eval Order SARS-CoV-2 (PCR) (Negative) 05/28/21 05/28/21 05/28/21 Range/Units 07:25 07:25 07:25 WBC (4.8-10.8) K/uL RBC (4.2-5.4) M/uL Hgb (12.0-16.0) g/dL Hct (37-47) % MCV (80-100) fL MCH (25-34) pg MCHC (32-36) g/dL RDW Std Deviation (36.4-46.3) fL RDW Coeff of Eliel (11.5-14.5) % Plt Count (130-400) K/uL MPV (7.4-10.4) fL Immature Gran % (Auto) % Neut % (Auto) % Lymph % (Auto) % [place] % (Auto) % Eos % (Auto) % Baso % (Auto) % Neut # (Auto) (1.4-6.5) K/uL Lymph # (Auto) (1.2-3.4) K/uL [place] # (Auto) (0.11-0.59) K/uL Eos # (Auto) (0-0.5) K/uL Baso # (Auto) (0-0.2) K/uL Immature Gran # (Auto) (0.00-0.02) K/uL Sodium 144 (136-145) mmol/L Potassium 3.3 L (3.5-5.1) mmol/L Chloride 113 H (98-107) mmol/L Carbon Dioxide 25 (21-32) mmol/L Anion Gap 6.0 (3-11) BUN 13 (7-18) mg/dl Creatinine 0.71 (0.6-1.2) mg/dl Est Cr Clr Drug Dosing 100.3 ml/min Est GFR ( Amer) 118.4 ml/min Est GFR (Non-Af Amer) 102.1 ml/min BUN/Creatinine Ratio 17.6 (10-20) Glucose 89 (70-99) mg/dl Calcium 8.3 L (8.5-10.1) mg/dl Total Bilirubin 0.4 (0.2-1) mg/dl AST 23 (15-37) U/L ALT 29 (12-78) U/L Alkaline Phosphatase 104 (45-117) U/L Troponin I < 0.015 (0-0.045) ng/ml Total Protein 6.2 L (6.4-8.2) gm/dl Albumin 2.9 L (3.4-5.0) gm/dl Globulin 3.3 (2.5-4.0) gm/dl Albumin/Globulin Ratio 0.9 (0.9-2) TSH 1.470 (0.300-4.500) uIu/ml HCG, Qual (Negative) Urine Color Urine Appearance (Clear) Urine pH (4.5-7.5) Ur Specific [place] (1.000-1.030) Urine Protein (Negative) Urine Glucose (UA) (Negative) Urine Ketones (Negative) Urine Blood (Negative) Urine Nitrite (Negative) Urine Bilirubin (Negative) Urine Urobilinogen (Negative) Ur Leukocyte Esterase (Negative) Salicylates < 1.7 L (2.8-20) mg/dl Urine Opiates Screen (Neg) Ur Methadone, Qual (Neg) Acetaminophen 4 L (10-30) ug/ml Urine Barbiturates (Neg) Ur Phencyclidine (PCP) (Neg) U Amphetamin/Meth Scrn (Neg) MDMA (Ecstasy) Screen (Neg) U Benzodiazepines Scrn (Neg) Ur Cocaine Metabolite (Neg) U Marijuana (THC) Screen (Neg) Ethyl Alcohol mg/dL < 3.0 (0-3) mg/dl COVID-19 Eval Order SARS-CoV-2 (PCR) (Negative) 05/28/21 05/28/21 05/28/21 Range/Units 07:25 09:09 09:13 WBC (4.8-10.8) K/uL RBC (4.2-5.4) M/uL Hgb (12.0-16.0) g/dL Hct (37-47) % MCV (80-100) fL MCH (25-34) pg MCHC (32-36) g/dL RDW Std Deviation (36.4-46.3) fL RDW Coeff of Eliel (11.5-14.5) % Plt Count (130-400) K/uL MPV (7.4-10.4) fL Immature Gran % (Auto) % Neut % (Auto) % Lymph % (Auto) % [place] % (Auto) % Eos % (Auto) % Baso % (Auto) % Neut # (Auto) (1.4-6.5) K/uL Lymph # (Auto) (1.2-3.4) K/uL [place] # (Auto) (0.11-0.59) K/uL Eos # (Auto) (0-0.5) K/uL Baso # (Auto) (0-0.2) K/uL Immature Gran # (Auto) (0.00-0.02) K/uL Sodium (136-145) mmol/L Potassium (3.5-5.1) mmol/L Chloride (98-107) mmol/L Carbon Dioxide (21-32) mmol/L Anion Gap (3-11) BUN (7-18) mg/dl Creatinine (0.6-1.2) mg/dl Est Cr Clr Drug Dosing ml/min Est GFR ( Amer) ml/min Est GFR (Non-Af Amer) ml/min BUN/Creatinine Ratio (10-20) Glucose (70-99) mg/dl Calcium (8.5-10.1) mg/dl Total Bilirubin (0.2-1) mg/dl AST (15-37) U/L ALT (12-78) U/L Alkaline Phosphatase (45-117) U/L Troponin I (0-0.045) ng/ml Total Protein (6.4-8.2) gm/dl Albumin (3.4-5.0) gm/dl Globulin (2.5-4.0) gm/dl Albumin/Globulin Ratio (0.9-2) TSH (0.300-4.500) uIu/ml HCG, Qual Negative (Negative) Urine Color Urine Appearance (Clear) Urine pH (4.5-7.5) Ur Specific [place] (1.000-1.030) Urine Protein (Negative) Urine Glucose (UA) (Negative) Urine Ketones (Negative) Urine Blood (Negative) Urine Nitrite (Negative) Urine Bilirubin (Negative) Urine Urobilinogen (Negative) Ur Leukocyte Esterase (Negative) Salicylates (2.8-20) mg/dl Urine Opiates Screen (Neg) Ur Methadone, Qual (Neg) Acetaminophen (10-30) ug/ml Urine Barbiturates (Neg) Ur Phencyclidine (PCP) (Neg) U Amphetamin/Meth Scrn (Neg) MDMA (Ecstasy) Screen (Neg) U Benzodiazepines Scrn (Neg) Ur Cocaine Metabolite (Neg) U Marijuana (THC) Screen (Neg) Ethyl Alcohol mg/dL (0-3) mg/dl COVID-19 Eval Order Covid19 at [facility] SARS-CoV-2 (PCR) NEGATIVE (Negative) Administered Medications Discontinued Medications Lorazepam (Lorazepam 1 Mg Tab) 1 mg PO NOW STA Stop: 05/28/21 07:05 Last Admin: 05/28/21 08:00 Dose: 1 mg Documented by: [id number] Potassium Chloride (Potassium Chloride Crtab 20 Meq Tabcr) 20 meq PO NOW STA Stop: 05/28/21 08:25 Last Admin: 05/28/21 08:55 Dose: 20 meq Documented by: [id number] Imaging Data Radiologist's Impression: Chest X-Ray 05/28/21 07:05 XR chest 1V portable HISTORY: 45 years-old Female OD acute drug overdose COMPARISON: Chest radiograph 03/10/2021 TECHNIQUE: Portable AP view of the chest FINDINGS: Cardiac silhouette is normal. Calcified left hilar lymph nodes redemonstrated. Subcentimeter calcific granuloma of the left lung base. Atherosclerotic plaque the thoracic aorta. There is no pneumothorax, pleural effusion, airspace consolidation or overt pulmonary edema. Degenerative changes of the shoulders and spine. IMPRESSION: No acute process. ACT 112: Negative or not required by law. The above report was generated using voice recognition software. It may contain grammatical, syntax or spelling errors. Electronically signed by: Karel Singleton M.D. 05/28/2021 8:04 AM Discharge Plan Visit Data Chief Complaint: Overdose (Intentional) Stated Complaint: OVERDOSE ED Provider: Atilio Santiago ED Midlevel Provider: Choco Hamilton Discharge Problem: Depression with suicidal ideation, Anxiety, Hypokalemia Patient Disposition: Admitted As Inpatient Discharge Instructions Interventions: ED Discharge Assessment Last Done: 05/28/21 11:28
[2021-05-28 07:35] LABS: Eosinophils # (auto) 0.09 K/uL (0-0.5); Eosinophils % (auto) 2.2 %; Hematocrit (blood only) 35.6 % (37-47); Hemoglobin 11.8 g/dL (12.0-16.0); Lymphocytes # (auto) 1.18 K/uL (1.2-3.4); Lymphocytes % (auto) 28.5 %; Mean Corpuscular Hemoglobin 32.5 pg (25-34); Mean Corpuscular Hgb Conc 33.1 g/dL (32-36); Mean Corpuscular Volume 98.1 fL (80-100); Mean Platelet Volume 9.8 fL (7.4-10.4); Monocytes % (auto) 9.7 %; Neutrophils # (auto) 2.47 K/uL (1.4-6.5); Neutrophils % (auto) 59.6 %; Platelet Count 171 K/uL (130-400); RDW Coefficient of Variation 13.6 % (11.5-14.5); Red Blood Count 3.63 M/uL (4.2-5.4); White Blood Count 4.14 K/uL (4.8-10.8)
[2021-05-28 07:39] LABS: Appearance Urine Clear (Clear); Bilirubin Urine Negative (Negative); Blood Urine Negative (Negative); Color Urine Yellow; Glucose Urine UA Negative (Negative); Ketones Urine Negative (Negative); Leukocyte Esterase Urine Negative (Negative); Nitrite Urine Negative (Negative); Protein Urine Negative (Negative); Specific Gravity Urine 1.003 (1.000-1.030); Urobilinogen Urine Negative (Negative)
[2021-05-28 07:56] LABS: Albumin Level 2.9 gm/dl (3.4-5.0); Aspartate Aminotransferase 23 U/L (15-37); BUN Creatinine Ratio 17.6 (10-20); Blood Urea Nitrogen 13 mg/dl (7-18); Calcium 8.3 mg/dl (8.5-10.1); Carbon Dioxide 25 mmol/L (21-32); Chloride 113 mmol/L (98-107); Creatinine Clr Calc Pharmacy 100.3 ml/min; Est GFR (African American) 118.4 ml/min; Est GFR (Non-African American) 102.1 ml/min; Glucose 89 mg/dl (70-99); Potassium 3.3 mmol/L (3.5-5.1); Sodium 144 mmol/L (136-145)
[2021-05-28 07:57] LABS: Amphetamines+Metham, Urine Neg (Neg); Barbiturates, Urine Neg (Neg); Benzodiazepine, Urine Neg (Neg); Cocaine, Urine Neg (Neg); MDMA (Ecstacy), Urine Neg (Neg); Methadone, Urine Neg (Neg); Opiate, Urine Neg (Neg); Phencyclidine, Urine Neg (Neg)
--- NOTE | 2021-05-28 08:01 | Communication Note ---
Date of Service: May 28, 2021 I was part of the care provided to the patient. For care plan please refer to the attending note.
[2021-05-28 08:05] LABS: Acetaminophen 4 ug/ml (10-30); Salicylate < 1.7 mg/dl (2.8-20)
--- NOTE | 2021-05-28 08:05 | XRay Report ---
XR chest 1V portable HISTORY: 45 years-old Female OD acute drug overdose COMPARISON: Chest radiograph 03/10/2021 TECHNIQUE: Portable AP view of the chest FINDINGS: Cardiac silhouette is normal. Calcified left hilar lymph nodes redemonstrated. Subcentimeter calcific granuloma of the left lung base. Atherosclerotic plaque the thoracic aorta. There is no pneumothorax , pleural effusion, airspace consolidation or overt pulmonary edema. Degenerative changes of the shou lders and spine. IMPRESSION: No acute process. ACT 112: Negative or not required by law. The above report was generated using voice recognition software. It may contain grammatical, syntax o r spelling errors. Electronically signed by: Karel Singleton M.D. 05/28/2021 8:04 AM
[2021-05-28 08:06] LABS: Alanine Aminotransferase 29 U/L (12-78); Albumin Globulin Ratio 0.9 (0.9-2); Alkaline Phosphatase 104 U/L (45-117); Bilirubin,Total 0.4 mg/dl (0.2-1); Globulin 3.3 gm/dl (2.5-4.0); Total Protein 6.2 gm/dl (6.4-8.2); Troponin I < 0.015 ng/ml (0-0.045)
[2021-05-28 08:07] LABS: Pregnancy Test, Serum Negative (Negative)
[2021-05-28] MEDS ORDERED: POTASSIUM CHLORIDE CRTAB 20 MEQ TABCR PO STA (08:24)
[2021-05-28] MEDS ORDERED: BISMUTH SUBSALICYLATE LIQD 236 ML PO PRN (11:02)
[2021-05-28] MEDS ORDERED: ALUMINUM/MAGNESIUM SUSP 30 ML UDC PO PRN (11:02)
[2021-05-28] MEDS ORDERED: SODIUM CHLORIDE 0.65% NA SOLN 45 ML (OCEAN) PRN (11:02)
[2021-05-28] MEDS ORDERED: hydrOXYzine HCl 25 MG TAB PO PRN (11:02)
[2021-05-28] MEDS ORDERED: MAGNESIUM HYDROXIDE SUSP 30 ML UDC PO PRN (11:02)
[2021-05-28] MEDS ORDERED: LIDOCAINE HCL 3% TOP PRN (13:48)
[2021-05-28] MEDS ORDERED: ATIVAN 1MG HOMEPACK PO PRN (13:50)
[2021-05-28] MEDS ORDERED: GABAPENTIN 300 MG CAP PO PRN (14:23)
--- NOTE | 2021-05-28 14:25 | History & Physical ---
Date of Service May 28, 2021 Impression / Recommendations Impression The patient is a 45 year old with a history of depression, anxiety, multiple prior suicide attempts and psychiatric hospitalizations and history of substance use is sustained remission who was admitted for worsening depression and suicide attempt via ingestion of 20 tabs of ativan on 201 status. The patient is deemed unstable and requires psychiatric hospitalization for diagnostic clarification, safety and stabilization, medication management and development of further coping skills. Diagnostically consistent with MDD vs persistent depressive disorder vs BPD. No evidence for BPAD given no history of connor. Discussed goals for hospitalization of acute safety and stabilization and finding alternative coping strategies or medications for anxiety instead of ativan. In context of overdose holding ativan for now with prn to be available starting tomorrow if absolutely necessary. Counseled on significant risks of long-term benzodiazepine use and that we do not typically prescribe any controlled substances at time of discharge. Discussed other options of coping skills and medications to help with anxiety. She is interested in trying gabapentin as this can help with anxiety, has lower abuse potential, and can also help with nerve pain and has some data for utility in BPD to help with mood lability. Discussed risks, benefits, alternatives. Also discussed other treatment options in detail. May consider increasing Rexulti since this has been particularly helpful. AIMS score=0, reviewed side effects from rexulti which she was aware of, including movement side effects and metabolic effects. Will continue mirtazapine as this has helped with sleep. (1) MDD (major depressive disorder), recurrent episode: (2) Suicidal ideation: (3) Anxiety: 05/28/21--The patient was admitted to the [facility] ([facility] mental [facility] unit) on q15 min checks (behavioral with suicide precautions) for safety. The patient will participate in group, recreational, and milieu therapies and will be offered additional individual and family sessions as clinically appropriate. 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, hobbies she enjoys Needs: increased supports ideally CM or therapy, coping skills Risk Factors Assessment Male: No : Yes Do You Have Access To A Gun?: No Health Problems: Yes Mental Health Diagnoses: Yes Substance Use Disorders: No Previous Attempt: Yes Family History of Suicide: No Previous Psychiatric Hospitalization: Yes Hopelessness: Yes Smoker: No Protective Factors Assessment Responsible for Young Children: Yes Employed: Yes (Works part-time at [employer] Stable Relationships: Yes Supportive Family: Yes Good Rapport with Provider: Yes Psychiatric History Identifying Data CARLA HORNE is a 45-year-old woman with a psychiatric history of depression, anxiety, possible BPD, multiple prior psychiatric hospitalizations (last 2018 at [facility]), multiple prior suicide attempts (~8) as well as multiple medical comorbidities including chronic back and GI pain, and was admitted on 05/28/21 11:02 on a 201 voluntary commitment for worsening depression and suicide attempt via ingestion of ~20 tabs of ativan. Chief Complaint "I just feel very overwhelmed with life ". History of Present Illness Carla, who prefers to be called Lisy, presents for admission for worsening depression and suicide attempt via ingestion of ~20 tabs of ativan in the context of multiple psychosocial stressors. She identifies a long history of depression and anxiety with chronic SI which has worsened over the last month. She identifies stressors of supporting her daughter through a new transition, conflict with her boss at work, financial stress of her apartment rent being increased and providing emotional support to her parents who in the midst of a major life transition. All of this lead her to feel overwhelmed and her chronic baseline passive SI acutely intensified to the point that she impulsively consumed 20 tabs of ativan. Her roommate then notified emergency responders and she was brought to the ED. While in the ED were no signs of acute medical decompensation, respiratory changes or excessive sedation as would typically be seen with such an ingestion. Currently she feels "numb" and endorses multiple symptoms of depression including low mood, hopelessness, helplessness, lack of motivation and tearfulness. She currently feels ambivalent about being alive noting that "I just don't want to feel anymore" and "I just want to go to sleep and not wake up". Endorses anxiety and history of panic attacks. She continues to find isatu from reading,crafting and writing short stories with her daughter and finds meaning from being with her daughter and her cat. Psychiatric ROS notable for: no hx past episodes of connor, no hx psychosis, hx trauma, hx substance use. Past Psychiatric History Previous Psych History: see HPI-dx MDD and anxiety with 7-8 prior inpt admissions. Current Psychiatric Diagnosis: Depression and anxiety Outpatient Services: sees Theresa Conde for psychiatric care at [place] Previous Psych Admissions: last a [facility] in 2018, 7-8 total lifetime hospitalizations Do You Have Access To A Gun?: No History of Previous Suicide Attempt: Yes (7-8 in past, most often via overdose) Describe Attempts in the Past: 2011-injected insulin and in the overdosed on pain medication Past Medication Trials: many of multiple classes-she cannot recall the specific details. Additional Notes: Started rexulti a few months ago and has found this very helpful. Also finds mirtazapine helpful for mood and sleep. Has been on ativan for many years for anxiety. Takes clonidine for help with sleep but also for blood pressure. Nortriptyline is for stomach nerve pain. Past Head Trauma/Neuro History History of Concussion/Seizure: Yes (reportedly with wellbutrin) Allergies Allergy/AdvReac Type Severity Reaction Status Date / Time morphine Allergy Severe TONGUE Verified 05/28/21 08:24 SWELLING, difficulty breathing/wheezing colestipol Allergy Intermediate red rash Verified 05/28/21 08:24 (no itching) cat dander Allergy Unknown ITCHY Verified 05/28/21 08:24 WATERY EYES nut - unspecified Allergy Unknown skin test Verified 05/28/21 08:24 showed nut allergy peanut Allergy Unknown Verified 05/28/21 08:24 scopolamine AdvReac Severe Seizure Verified 05/28/21 08:24 promethazine AdvReac Intermediate "CAN'T SIT Verified 05/28/21 08:24 STILL" bupropion AdvReac Unknown Seizure Verified 05/28/21 08:24 Home Medications Medication Instructions Recorded Confirmed Type cholecalciferol (vitamin D3) 1,250 50,000 unit PO MOFR 05/19/18 05/28/21 History mcg (50,000 unit) capsule pediatric multivit no.79-ferrous 1 tab PO BID 01/10/19 05/28/21 History fumarate 18 mg iron chewable tablet (Flintstones with Iron) fluticasone propionate 50 2 spray INTRANASAL QAM 02/15/19 05/28/21 History mcg/actuation nasal spray,suspension (Flonase Allergy Relief) valacyclovir 1 gram tablet 1,000 mg PO QAM tab 04/09/19 05/28/21 History (Valtrex) mirtazapine 30 mg tablet (Remeron) 30 mg PO HS 05/18/19 05/28/21 History cyanocobalamin (vitamin B-12) 1,000 mcg IM Q3MO ml 05/20/19 05/28/21 History 1,000 mcg/mL injection solution vitamin A 10,000 unit capsule 10,000 units PO TID cap 08/29/19 05/28/21 History hydroxyzine HCl 25 mg tablet 25 - 50 mg PO HS PRN 09/22/19 05/28/21 History clonidine HCl 0.1 mg tablet 0.1 mg PO HS 12/03/19 05/28/21 History copper gluconate 2 mg tablet 2 mg PO QAM 12/03/19 05/28/21 History albuterol sulfate 90 mcg/actuation 2 puff INH Q4 PRN 09/17/20 05/28/21 History aerosol inhaler (ProAir HFA) lorazepam 1 mg tablet 1 mg PO DAILY PRN 09/23/20 05/28/21 History zinc acetate 25 mg (zinc) capsule 50 mg PO QAM cap 09/23/20 05/28/21 History lipase 3,000-protease 1 - 2 cap PO .COMPLEX cap 10/28/20 05/28/21 History 9,500-amylase 15,000 unit capsule, delayed rel (Creon) ferrous sulfate 250 mg (50 mg 250 mg PO BID tab 02/22/21 05/28/21 History iron) tablet,extended release brexpiprazole 3 mg tablet (Rexulti) 3 mg PO HS 03/10/21 05/28/21 History nortriptyline 50 mg capsule 100 mg PO HS 03/10/21 05/28/21 History mirtazapine 15 mg tablet 15 mg PO HS 03/18/21 05/28/21 History lidocaine HCl 3 % topical cream 1 applic TOPICAL DAILY PRN 05/28/21 05/28/21 History prucalopride 2 mg tablet 2 mg PO DAILY 05/28/21 05/28/21 History (Motegrity) solifenacin 10 mg tablet (Vesicare) 10 mg PO QAM 05/28/21 05/28/21 History Family History Family History of: Depression, Anxiety and Alcoholism/Drug Abuse Alcohol History Hx of Alcohol Use Over the Past 12 Months: No AUDIT Total Score: 0 Smoking Use Have You Smoked or Used Tobacco Products in the Last 30 Days: No Smoking Status: Never smoker Substance History Hx of Prescription Med Misuse Over the Past 12 Months: No Hx of Over the Counter Med Misuse Over the Past 12 Months: No Hx of Inhalent Misuse Over the Past 12 Months: No Hx of Organic Substance Use Over the Past 12 Months: Yes (Prescribed medical marijuana card, daily use) Hx of Illegal Substances/Street Drug Use Over Past 12 Months: No Problems as a Result of Past Substance Use: None Identified Personal History Living Arrangements: Apartment Highest Grade Completed: College Employment Status: [employer] Employed Number Of Children: 1 daughter age 15 Beliefs That Will Affect Care: None Hx Legal Problems: Yes Hx Traumatic Life Events: Yes Patient History Medical History (Updated 05/28/21 @ 15:24 by Arielle Chris MD) Agoraphobia (Unknown) Allergic rhinitis Alopecia areata Anxiety Arthritis Benzodiazepine abuse Bipolar I disorder (10/11/12) Borderline personality disorder Bowel perforation Chronic abdominal pain Chronic anemia Chronic diarrhea Colon cancer Depression Diabetes Environmental allergies Factitious disorder H/O drug abuse heroin, alcohol, opiates, cocaine, benzo's Heroin abuse History of seizures LAST SEIZURE NOTED IN ED 2018 History of suicidal ideation Hx of primary hypertension Lumbar facet joint syndrome Migraine Opiate addiction Pneumonia due to 2019-nCoV Polycystic kidney disease, adult type (Unknown) Postgastric surgery syndrome (Unknown) Seasonal allergies Seizures Stomach ulcer Suicidal ideation Surgical History H/O colonoscopy H/O esophagogastroduodenoscopy H/O exploratory laparotomy "2009, 2010, 2012" H/O gastric bypass H/O ventral hernia repair H/O wisdom tooth extraction History of endometrial ablation History of esophageal dilatation "2009" History of partial gastrectomy Hx of cholecystectomy Hx of hysterectomy S/P foot surgery S/P panniculectomy "2010" S/P partial gastrectomy Status post unilateral salpingo-oophorectomy Family History Father Colorectal cancer Myocardial infarction Diabetes Stroke Alcohol abuse Cardiac disorder Mother Cancer Hypertension Alcohol abuse Anxiety Grandfather Myocardial infarction Diabetes Grandmother Breast cancer Diabetes Aunt Breast cancer Other Colon cancer Gallbladder disease Heart disease Lung disease Denies family history of Ovarian cancer Prostate cancer Social History Smoking Status: Never smoker Second Hand Exposure: No; Hx Alcohol Use: No Hx Substance Use: Yes Substance Use Type Other:: history of heroin, last used 2012 Preferred Language: Syriac Communication Ability: Effective Rehanger Required: No Beliefs That Will Affect Care: None marital status: Current Living Situation: Other Current Living Situation Comment: lives with roommate current occupational status: employed 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 occupation: Re[employer] T[employer] at [employer] Feels Safe at Home: Yes Childhood Exposure to Second-Hand Smoke: Yes Dental Care, Regularly: Yes Physical Activity Frequency: Daily Seatbelt Use: always Sunscreen Use: No Assistive Devices: Glasses Review of Systems Review of Systems: All systems reviewed & are unremarkable except as noted in HPI & below (chronic back pain, chronic GI pain, urinary incontienence) Physical Exam Psychiatric: Orientation: alert and oriented x 3 Apperance: appropriately dressed and appropriately groomed Eye Contact: good eye contact Motor Behavior: steady gait and station and no abnormal motor movements; n EPS, n akathisia and n tremor Speech: normal rate/rhythm/volume of speech Affect: + tearful affect Mood: + depressed mood Thought Process: linear/logical thought process Thought Content: + cognitive distortions and reality based without delusions Suicidal Thoughts: denies suicidal plan and denies suicidal intent; + reports suicidal thoughts Homicidal Thoughts: denies homicidal thoughts Hallucinations: no auditory hallucinations and no visual hallucinations Cognition: recent memory grossly intact, remote memory grossly intact, attention grossly intact and language grossly intact Estimated Intelligence: consistent with education level Insight: + fair insight Judgement: + impaired judgement Vital Signs (Past 24 Hours): Last Vital Signs Temp 36.9 C 05/28/21 12:00 Pulse 72 05/28/21 12:00 Resp 18 05/28/21 12:00 BP 137/87 05/28/21 12:00 Pulse Ox 96 05/28/21 11:06 Exam Statement: A physical exam was performed in the ED by Dr. Santiago for the purposes of medical clearance. I accept that physical as correct and adequate for the purposes of the inpatient physical exam. Results & Data ([facility]) Laboratory Results Laboratory Results - last 24 hr 11/05/21 11/05/21 11/05/21 07:21 07:21 07:21 WBC RBC Hgb Hct MCV MCH MCHC RDW Std Deviation RDW Coeff of Eliel Plt Count MPV Immature Gran % (Auto) Neut % (Auto) Lymph % (Auto) [place] % (Auto) Eos % (Auto) Baso % (Auto) Neut # (Auto) Lymph # (Auto) [place] # (Auto) Eos # (Auto) Baso # (Auto) Immature Gran # (Auto) Sodium Potassium Chloride Carbon Dioxide Anion Gap BUN Creatinine Est Cr Clr Drug Dosing Est GFR ( Amer) Est GFR (Non-Af Amer) BUN/Creatinine Ratio Glucose Calcium Total Bilirubin AST ALT Alkaline Phosphatase Troponin I Total Protein Albumin Globulin Albumin/Globulin Ratio TSH HCG, Qual Urine Color Yellow Urine Appearance Clear Urine pH 6.0 Ur Specific [place] 1.003 Urine Protein Negative Urine Glucose (UA) Negative Urine Ketones Negative Urine Blood Negative Urine Nitrite Negative Urine Bilirubin Negative Urine Urobilinogen Negative Ur Leukocyte Esterase Negative Salicylates Urine Opiates Screen Neg Ur Methadone, Qual Neg Acetaminophen Urine Barbiturates Neg Ur Phencyclidine (PCP) Neg U Amphetamin/Meth Scrn Neg MDMA (Ecstasy) Screen Neg U Benzodiazepines Scrn Neg Ur Cocaine Metabolite Neg U Marijuana (THC) Screen Pos H U Marijuana THC Carboxy Pending Drug Screen Comment Pending Ethyl Alcohol mg/dL COVID-19 Eval Order SARS-CoV-2 (PCR) 05/28/21 05/28/21 05/28/21 07:25 07:25 07:25 WBC 4.14 L RBC 3.63 L Hgb 11.8 L Hct 35.6 L MCV 98.1 MCH 32.5 MCHC 33.1 RDW Std Deviation 49.0 H RDW Coeff of Eliel 13.6 Plt Count 171 MPV 9.8 Immature Gran % (Auto) 0.0 Neut % (Auto) 59.6 Lymph % (Auto) 28.5 [place] % (Auto) 9.7 Eos % (Auto) 2.2 Baso % (Auto) 0.0 Neut # (Auto) 2.47 Lymph # (Auto) 1.18 L [place] # (Auto) 0.40 Eos # (Auto) 0.09 Baso # (Auto) 0.00 Immature Gran # (Auto) 0.00 Sodium 144 Potassium 3.3 L Chloride 113 H Carbon Dioxide 25 Anion Gap 6.0 BUN 13 Creatinine 0.71 Est Cr Clr Drug Dosing 100.3 Est GFR ( Amer) 118.4 Est GFR (Non-Af Amer) 102.1 BUN/Creatinine Ratio 17.6 Glucose 89 Calcium 8.3 L Total Bilirubin 0.4 AST 23 ALT 29 Alkaline Phosphatase 104 Troponin I < 0.015 Total Protein 6.2 L Albumin 2.9 L Globulin 3.3 Albumin/Globulin Ratio 0.9 TSH 1.470 HCG, Qual Urine Color Urine Appearance Urine pH Ur Specific [place] Urine Protein Urine Glucose (UA) Urine Ketones Urine Blood Urine Nitrite Urine Bilirubin Urine Urobilinogen Ur Leukocyte Esterase Salicylates < 1.7 L Urine Opiates Screen Ur Methadone, Qual Acetaminophen 4 L Urine Barbiturates Ur Phencyclidine (PCP) U Amphetamin/Meth Scrn MDMA (Ecstasy) Screen U Benzodiazepines Scrn Ur Cocaine Metabolite U Marijuana (THC) Screen U Marijuana THC Carboxy Drug Screen Comment Ethyl Alcohol mg/dL COVID-19 Eval Order SARS-CoV-2 (PCR) 05/28/21 05/28/21 05/28/21 07:25 07:25 09:09 WBC RBC Hgb Hct MCV MCH MCHC RDW Std Deviation RDW Coeff of Eliel Plt Count MPV Immature Gran % (Auto) Neut % (Auto) Lymph % (Auto) [place] % (Auto) Eos % (Auto) Baso % (Auto) Neut # (Auto) Lymph # (Auto) [place] # (Auto) Eos # (Auto) Baso # (Auto) Immature Gran # (Auto) Sodium Potassium Chloride Carbon Dioxide Anion Gap BUN Creatinine Est Cr Clr Drug Dosing Est GFR ( Amer) Est GFR (Non-Af Amer) BUN/Creatinine Ratio Glucose Calcium Total Bilirubin AST ALT Alkaline Phosphatase Troponin I Total Protein Albumin Globulin Albumin/Globulin Ratio TSH HCG, Qual Negative Urine Color Urine Appearance Urine pH Ur Specific [place] Urine Protein Urine Glucose (UA) Urine Ketones Urine Blood Urine Nitrite Urine Bilirubin Urine Urobilinogen Ur Leukocyte Esterase Salicylates Urine Opiates Screen Ur Methadone, Qual Acetaminophen Urine Barbiturates Ur Phencyclidine (PCP) U Amphetamin/Meth Scrn MDMA (Ecstasy) Screen U Benzodiazepines Scrn Ur Cocaine Metabolite U Marijuana (THC) Screen U Marijuana THC Carboxy Drug Screen Comment Ethyl Alcohol mg/dL < 3.0 COVID-19 Eval Order Covid19 at [facility] SARS-CoV-2 (PCR) 05/28/21 09:13 WBC RBC Hgb Hct MCV MCH MCHC RDW Std Deviation RDW Coeff of Eliel Plt Count MPV Immature Gran % (Auto) Neut % (Auto) Lymph % (Auto) [place] % (Auto) Eos % (Auto) Baso % (Auto) Neut # (Auto) Lymph # (Auto) [place] # (Auto) Eos # (Auto) Baso # (Auto) Immature Gran # (Auto) Sodium Potassium Chloride Carbon Dioxide Anion Gap BUN Creatinine Est Cr Clr Drug Dosing Est GFR ( Amer) Est GFR (Non-Af Amer) BUN/Creatinine Ratio Glucose Calcium Total Bilirubin AST ALT Alkaline Phosphatase Troponin I Total Protein Albumin Globulin Albumin/Globulin Ratio TSH HCG, Qual Urine Color Urine Appearance Urine pH Ur Specific [place] Urine Protein Urine Glucose (UA) Urine Ketones Urine Blood Urine Nitrite Urine Bilirubin Urine Urobilinogen Ur Leukocyte Esterase Salicylates Urine Opiates Screen Ur Methadone, Qual Acetaminophen Urine Barbiturates Ur Phencyclidine (PCP) U Amphetamin/Meth Scrn MDMA (Ecstasy) Screen U Benzodiazepines Scrn Ur Cocaine Metabolite U Marijuana (THC) Screen U Marijuana THC Carboxy Drug Screen Comment Ethyl Alcohol mg/dL COVID-19 Eval Order SARS-CoV-2 (PCR) NEGATIVE Current Inpatient Medications Current Inpatient Medications: Current Inpatient Medications Acetaminophen (Acetaminophen 325 Mg Tab) 650 mg PO Q4H PRN PRN Reason: Headache or Minor Fever Stop: 06/27/21 11:01 Al Hydrox/Mg Hydrox/Simethicone (Aluminum/Magnesium Susp 30 Ml Udc) 30 ml PO Q4H PRN PRN Reason: GI Upset Stop: 06/27/21 11:01 Bismuth Subsalicylate (Bismuth Subsalicylate Liqd 236 Ml) 15 ml PO PRN PRN PRN Reason: Loose Stool Stop: 06/27/21 11:01 Clonidine HCl (Clonidine Hcl 0.1 Mg Tab) 0.1 mg PO HS MARGO Stop: 06/27/21 21:59 Gabapentin (Gabapentin 300 Mg Cap) 300 mg PO DAILY PRN PRN Reason: Anxiety/Agitation Stop: 06/27/21 14:29 Hydroxyzine HCl (Hydroxyzine Hcl 25 Mg Tab) 50 mg PO HSZ PRN PRN Reason: Insomnia Stop: 06/27/21 11:01 Hydroxyzine HCl (Hydroxyzine Hcl 25 Mg Tab) 25 mg PO Q4H PRN PRN Reason: Anxiety Stop: 06/27/21 11:01 Lorazepam (Lorazepam 0.5 Mg Tab) 0.5 mg PO DAILY PRN PRN Reason: Anxiety Stop: 06/28/21 07:59 Magnesium Hydroxide (Magnesium Hydroxide Susp 30 Ml Udc) 30 ml PO DAILY PRN PRN Reason: Constipation Stop: 06/27/21 11:01 Mirtazapine (Mirtazapine Tab 15 Mg Tab) 30 mg PO HS MARGO Stop: 06/27/21 21:59 Mirtazapine (Mirtazapine Tab 15 Mg Tab) 15 mg PO HS MARGO Stop: 06/27/21 21:59 Miscellaneous (Brexpiprazole [Rexulti] 3 Mg Tablet ~ Order Awaiting Action) 1 ea N/A QS MARGO Stop: 06/27/21 15:59 Non-Formulary Medication (Lidocaine Hcl) 1 appln TOP DAILY PRN PRN Reason: Itching Non-Formulary Medication (Uwsatr-Psdgkapi-Wysbcbp [Creon]) 1 - 2 cap PO . COMPLEX MARGO Stop: 06/27/21 13:59 Non-Formulary Medication (Prucalopride [Motegrity]) 2 mg PO DAILY MARGO Stop: 06/28/21 08:59 Non-Formulary Medication (Solifenacin [Vesicare]) 10 mg PO QAM MARGO Stop: 06/28/21 08:59 Nortriptyline HCl (Nortriptyline Hcl 25 Mg Cap) 100 mg PO HS MARGO Stop: 06/27/21 21:59 Sodium Chloride (Sodium Chloride 0.65% Na Soln 45 Ml ([place])) 1 - 2 sprays NA PRN PRN PRN Reason: Nasal Dryness/Congestion Stop: 06/27/21 11:01 Valacyclovir HCl (Valacyclovir Hcl 500 Mg Tablet) 1,000 mg PO QAM MARGO Stop: 06/28/21 08:59 Zinc Acetate/Diphenhydramine (Diphenhydramine 2%/Zinc 0.1% Cream 28gm Tube) 1 appln EXT BID PRN PRN Reason: Itching Stop: 06/27/21 13:48
[2021-05-28] MEDS ORDERED: LIDOCAINE 4% CREAM 15 GM TUBE EXT PRN (15:56)
[2021-05-28] MEDS: [UNRECOGNIZED DRUG - OTHER] PO SCH (17:27)
[2021-05-28] MEDS: BREXPIPRAZOLE 3 MG PO SCH (21:16)
[2021-05-28] MEDS: cloNIDine HCL 0.1 MG TAB PO SCH (21:16)
[2021-05-28] MEDS: MIRTAZAPINE TAB 15 MG TAB PO SCH ×2 (21:17→21:18)
[2021-05-28] MEDS: NORTRIPTYLINE HCL 25 MG CAP PO SCH (21:18)
--- NOTE | 2021-05-29 06:26 | Electrocardiogram Report ---
Test Reason : Blood Pressure : / mmHG Vent. Rate : 072 BPM Atrial Rate : 072 BPM P-R Int : 158 ms QRS Dur : 086 ms QT Int : 408 ms P-R-T Axes : 050 017 019 degrees QTc Int : 446 ms Normal sinus rhythm Normal ECG When compared with ECG of 10-MAR-2021 01:39, No significant change was found Confirmed by Tae Yanez ([id number]) on 05/29/2021 6:26:42 AM Referred By: REFERRED SELF Confirmed By:Tae Yanez
[2021-05-29] MEDS: ACETAMINOPHEN 325 MG TAB PO PRN (07:07)
[2021-05-29 08:00] LABS: Glucose Fasting 93 mg/dl (70-99)
[2021-05-29] MEDS ORDERED: LORazepam 0.5 MG TAB PO PRN (08:00)
[2021-05-29 08:06] LABS: Chol HDL Ratio 3; Cholesterol 242 mg/dl (0-200); HDL Cholesterol 82 mg/dl; LDL Cholesterol Calculated 141 mg/dl; Triglycerides 97 mg/dl (0-150); VLDL Cholesterol 19 mg/dl
[2021-05-29] MEDS ORDERED: LORazepam 1 MG TAB PO STA (08:06)
[2021-05-29] MEDS: [UNRECOGNIZED DRUG - OTHER] PO SCH ×3 (08:29→17:04)
[2021-05-29] MEDS: PRUCALOPRIDE 2 MG PO SCH (08:30)
[2021-05-29] MEDS: OXYBUTYNIN CHLORIDE XL 5 MG TABCR PO SCH (08:32)
[2021-05-29] MEDS ORDERED: NON-FORMULARY MEDICATION (Solifenacin [Vesicare] 10 mg tablet) PO SCH (09:00)
[2021-05-29] MEDS: valACYclovir HCL 500 MG TABLET PO SCH (09:02)
--- NOTE | 2021-05-29 11:34 | Psychiatric Progress Note ---
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 The patient is deemed unstable and requires psychiatric hospitalization for diagnostic clarification, safety and stabilization, medication management and development of further coping skills. 05/29/21: BP elevated this am with some SHEPARD, reports not taking Ativan for 2-3 days prior to OD "so I'd have enough". Somewhat suspicious for substance abuse as patient took Ativan selectively knowing risks with clonidine and nortriptyline. Tox screen negative for benzos. She has little support system. (1) MDD (major depressive disorder), recurrent episode: (2) Suicidal ideation: (3) Anxiety: (4) Medical marijuana use: 05/29/21--Reviewed care by Dr. Chris in italics. Patient was given 1 mg Ativan early this am for BP elevation/presumed withdrawal, no tremor on exam. Will make neurontin standing order to address withdrawal/anxiety during Ativan taper. Confirmed patient has no supply of Ativan, "I took it all". Discussed titration of Rexulti and BID dosing given her hx of gastric surgery/poor absorption. Sent rx for Rexulti 2 mg Bid to pharmacy as splitting 4 mg tablets less than ideal. Will need to determine ability for insurance coverage longer term if dosing works. Patient aware if able to fill that friend will need to picking table worker as non-formulary. Suspect heavy use of medical MJ. 05/28/21--The patient was admitted to the [facility] ([facility]) on q15 min checks (behavioral with suicide precautions) for safety. The patient will participate in group, recreational, and milieu therapies and will be offered additional individual and family sessions as clinically appropriate. 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, hobbies she enjoys Needs: increased supports ideally CM or therapy, coping skills Risk Factors Assessment Male: No : Yes Do You Have Access To A Gun?: No Health Problems: Yes Mental Health Diagnoses: Yes Substance Use Disorders: No Previous Attempt: Yes Family History of Suicide: No Previous Psychiatric Hospitalization: Yes Hopelessness: Yes Smoker: No Protective Factors Assessment Responsible for Young Children: Yes Employed: Yes (Works part-time at local [employer]) Stable Relationships: Yes Supportive Family: Yes Good Rapport with Provider: Yes Interval History Identifying Information CARLA HORNE is a 45-year-old woman with a psychiatric history of depression, anxiety, possible BPD, multiple inpatient hospitalizations for suicide attempts, admitted on 05/28/21 11:02 on a 201 voluntary commitment for worsening depression and suicide attempt via ingestion of ~20 tabs of ativan. Chief Complaint "I just wanted to numb out". Review of Systems Sleep Information Total Hours of Sleep: 4.5 Meal Information Percent Meal Consumed - Breakfast: 100 Percent Meal Consumed - Lunch: 100 Percent Meal Consumed - Dinner: 100 Subjective Subjective Patient was seen & assessed and interval progress reviewed with nursing and social work. Patient was tearful, "why can't I just be normal" yet also angry at her roommate for activating EMS. "I had already slept and clearly wasn't going to ." Feels guilty as now may miss her daughters 16th birthday. Reports some rash on external surfaces of her forearms, appears to be scratching, she states benadryl cream helpful. Rather localized (patchy) vs diffuse drug reaction and "nothing new". She reiterated how helpful Rexulti has been and hx of poor absorption of meds due to her multiple GI surgeries. She is still working at [employer] . Physical Exam Psychiatric Orientation: alert and oriented x 3 Apperance: appropriately dressed and appropriately groomed Eye Contact: good eye contact Motor Behavior: steady gait and station and no abnormal motor movements; n EPS, n akathisia and n tremor Speech: normal rate/rhythm/volume of speech Affect: + tearful affect Mood: + depressed mood Thought Process: linear/logical thought process Thought Content: + cognitive distortions and reality based without delusions Suicidal Thoughts: denies suicidal thoughts, denies suicidal plan and denies suicidal intent Homicidal Thoughts: denies homicidal thoughts Hallucinations: no auditory hallucinations and no visual hallucinations Cognition: recent memory grossly intact, remote memory grossly intact, attention grossly intact and language grossly intact Estimated Intelligence: consistent with education level Insight: + fair insight Judgement: + impaired judgement Vital Signs (Past 24 Hours) Last Vital Signs Temp 36.5 C 05/29/21 06:34 Pulse 71 05/29/21 06:35 Resp 18 05/29/21 06:34 BP 165/84 H 05/29/21 07:00 Pulse Ox 96 05/28/21 11:06 Results & Data ([facility]) Laboratory Results Laboratory Results - last 24 hr 05/29/21 07:22 Fasting Glucose 93 Triglycerides 97 Cholesterol 242 H LDL Cholesterol, Calc 141 VLDL Cholesterol, Calc 19 HDL Cholesterol 82 Cholesterol/HDL Ratio 3 Current Inpatient Medications Current Inpatient Medications: Current Inpatient Medications Acetaminophen (Acetaminophen 325 Mg Tab) 650 mg PO Q4H PRN PRN Reason: Headache or Minor Fever Stop: 06/27/21 11:01 Last Admin: 05/29/21 07:07 Dose: 650 mg Documented by: Al Hydrox/Mg Hydrox/Simethicone (Aluminum/Magnesium Susp 30 Ml Udc) 30 ml PO Q4H PRN PRN Reason: GI Upset Stop: 06/27/21 11:01 Lipase/Protease/Amylase (Lipase/Protease/Amylase [id number]) 3 ea PO TIDM [facility] Stop: 06/27/21 17:44 Last Admin: 05/29/21 08:29 Dose: 3 ea Documented by: Lipase/Protease/Amylase (Lipase/Protease/Amylase [id number]) 2 ea PO PRN PRN PRN Reason: with snacks Stop: 06/27/21 14:50 Bismuth Subsalicylate (Bismuth Subsalicylate Liqd 236 Ml) 15 ml PO PRN PRN PRN Reason: Loose Stool Stop: 06/27/21 11:01 Brexpiprazole (Brexpiprazole 3mg) 1 ea PO HS [facility] Stop: 06/27/21 21:59 Last Admin: 05/28/21 21:16 Dose: 1 ea Documented by: Clonidine HCl (Clonidine Hcl 0.1 Mg Tab) 0.1 mg PO HS [facility] Stop: 06/27/21 21:59 Last Admin: 05/28/21 21:16 Dose: 0.1 mg Documented by: Gabapentin (Gabapentin 300 Mg Cap) 300 mg PO DAILY PRN PRN Reason: Anxiety/Agitation Stop: 06/27/21 14:29 Hydroxyzine HCl (Hydroxyzine Hcl 25 Mg Tab) 50 mg PO HSZ PRN PRN Reason: Insomnia Stop: 06/27/21 11:01 Hydroxyzine HCl (Hydroxyzine Hcl 25 Mg Tab) 25 mg PO Q4H PRN PRN Reason: Anxiety Stop: 06/27/21 11:01 Lidocaine (Lidocaine 4% Cream 15 Gm Tube) 1 appln EXT DAILY PRN PRN Reason: Rash Stop: 06/27/21 15:55 Lorazepam (Lorazepam 0.5 Mg Tab) 0.5 mg PO BIDM [facility] Stop: 06/28/21 17:44 Magnesium Hydroxide (Magnesium Hydroxide Susp 30 Ml Udc) 30 ml PO DAILY PRN PRN Reason: Constipation Stop: 06/27/21 11:01 Mirtazapine (Mirtazapine Tab 15 Mg Tab) 30 mg PO HS [facility] Stop: 06/27/21 21:59 Last Admin: 05/28/21 21:17 Dose: 30 mg Documented by: Mirtazapine (Mirtazapine Tab 15 Mg Tab) 15 mg PO HS [facility] Stop: 06/27/21 21:59 Last Admin: 05/28/21 21:18 Dose: 15 mg Documented by: Prucalopride [ Motegrity] 2 Mg Tablet ~ Non- Formulary Patient's Own Med 1 ea PO DAILY [facility] Stop: 06/28/21 08:59 Last Admin: 05/29/21 08:30 Dose: 2 mg Documented by: Nortriptyline HCl (Nortriptyline Hcl 25 Mg Cap) 100 mg PO HS [facility] Stop: 06/27/21 21:59 Last Admin: 05/28/21 21:18 Dose: 100 mg Documented by: Oxybutynin Chloride (Oxybutynin Chloride Xl 5 Mg Tabcr) 5 mg PO QAM [facility] Stop: 06/28/21 08:59 Last Admin: 05/29/21 08:32 Dose: 5 mg Documented by: Sodium Chloride (Sodium Chloride 0.65% Na Soln 45 Ml ([place])) 1 - 2 sprays NA PRN PRN PRN Reason: Nasal Dryness/Congestion Stop: 06/27/21 11:01 Valacyclovir HCl (Valacyclovir Hcl 500 Mg Tablet) 1,000 mg PO QAM [facility] Stop: 06/28/21 08:59 Last Admin: 05/29/21 09:02 Dose: 1,000 mg Documented by: Zinc Acetate/Diphenhydramine (Diphenhydramine 2%/Zinc 0.1% Cream 28gm Tube) 1 appln EXT BID PRN PRN Reason: Itching Stop: 06/27/21 13:48 Last Admin: 05/28/21 21:19 Dose: 1 appln Documented by: Mental Health & Subst Abuse Tx Therapist Name of Therapist: none Post Discharge Appointments Primary Care Physician Name Of Family Doctor: Dr. Harrell
[2021-05-29] MEDS: hydrOXYzine HCl 25 MG TAB PO PRN (13:49)
[2021-05-29] MEDS: GABAPENTIN 300 MG CAP PO SCH (17:04)
[2021-05-29] MEDS: LORazepam 0.5 MG TAB PO SCH (17:05)
[2021-05-29] MEDS: [UNRECOGNIZED DRUG - OTHER] PO PRN (20:38)
[2021-05-29] MEDS: BREXPIPRAZOLE 3 MG PO SCH (21:31)
[2021-05-29] MEDS: cloNIDine HCL 0.1 MG TAB PO SCH (21:32)
[2021-05-29] MEDS: MIRTAZAPINE TAB 15 MG TAB PO SCH ×2 (21:32→21:33)
[2021-05-29] MEDS: NORTRIPTYLINE HCL 25 MG CAP PO SCH (21:32)
[2021-05-30] MEDS: hydrOXYzine HCl 25 MG TAB PO PRN ×2 (07:07→18:58)
[2021-05-30 07:12] LABS: Marijuana Quant, GCMS Urine 130 ng/mL (<5)
[2021-05-30] MEDS: GABAPENTIN 300 MG CAP PO SCH ×2 (08:37→17:00)
[2021-05-30] MEDS: [UNRECOGNIZED DRUG - OTHER] PO SCH ×3 (08:38→16:59)
[2021-05-30] MEDS: LORazepam 0.5 MG TAB PO SCH ×2 (08:39→16:59)
[2021-05-30] MEDS: PRUCALOPRIDE 2 MG PO SCH (08:39)
[2021-05-30] MEDS: valACYclovir HCL 500 MG TABLET PO SCH (08:40)
[2021-05-30] MEDS: OXYBUTYNIN CHLORIDE XL 5 MG TABCR PO SCH (08:40)
[2021-05-30] MEDS: ACETAMINOPHEN 325 MG TAB PO PRN (10:03)
--- NOTE | 2021-05-30 11:58 | Psychiatric Progress Note ---
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 The patient is deemed unstable and requires psychiatric hospitalization for diagnostic clarification, safety and stabilization, medication management and development of further coping skills. 05/30/21: questionable benzo withdrawal, patient has hx of hypertension and typically uses medical MJ regularly at home. unchanged in coping skills related to roommate and blames him for hospitalization. (1) MDD (major depressive disorder), recurrent episode: (2) Suicidal ideation: (3) Anxiety: (4) Medical marijuana use: (5) Hypokalemia: 05/30/21--increase frequency of vitals through today, Ativan and Neurontin BID, does not appear uncomfortable, will increase Rexulti as available 05/31/21. Replete K for nocturnal muscle cramps and repeat in am. Patient to be provided educational materials on borderline personality disorder. 05/29/21--Reviewed care by Dr. Chris in italics. Patient was given 1 mg Ativan early this am for BP elevation/presumed withdrawal, no tremor on exam. Will make neurontin standing order to address withdrawal/anxiety during Ativan taper. C onfirmed patient has no supply of Ativan, "I took it all". Discussed titration of Rexulti and BID dosing given her hx of gastric surgery/poor absorption. Sent rx for Rexulti 2 mg Bid to pharmacy as splitting 4 mg tablets less than ideal. Will need to determine ability for insurance coverage longer term if dosing works. Patient aware if able to fill that friend will need to scrap picker as non-formulary. Suspect heavy use of medical MJ. 05/28/21--The patient was admitted to the [facility] ([facility]) on q15 min checks (behavioral with suicide precautions) for safety. The patient will participate in group, recreational, and milieu therapies and will be offered additional individual and family sessions as clinically appropriate. 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 enjoys Needs: increased supports ideally CM or therapy, coping skills Risk Factors Assessment Male: No : Yes Do You Have Access To A Gun?: No Health Problems: Yes Mental Health Diagnoses: Yes Substance Use Disorders: No Previous Attempt: Yes Family History of Suicide: No Previous Psychiatric Hospitalization: Yes Hopelessness: Yes Smoker: No Protective Factors Assessment Responsible for Young Children: Yes Employed: Yes (Works part-time at [email or web address]) Stable Relationships: Yes Supportive Family: Yes Good Rapport with Provider: Yes Interval History Identifying Information CARLA HORNE is a 45-year-old woman with a psychiatric history of depression, anxiety, possible BPD, multiple inpatient hospitalizations for suicide attempts, admitted on 05/28/21 11:02 on a 201 voluntary commitment for worsening depression and suicide attempt via ingestion of ~20 tabs of ativan. Chief Complaint "yeah I need help with goals, also think I'm having some withdrawal". Review of Systems Sleep Information Total Hours of Sleep: 5.5 Meal Information Percent Meal Consumed - Breakfast: 100 Percent Meal Consumed - Lunch: 100 Percent Meal Consumed - Dinner: 100 Subjective Subjective Patient was seen & assessed and interval progress reviewed with nursing and social work. No acute issues overnight. Pharmacy will have Rexulti dose change tomorrow. BP elevated this am but pulse stable. No sweating or tremor. Anxiety seems lower than yesterday and is engaged with patient handbook and discussions about current and past diagnoses. Remains resistant to speaking with her roommate as still angry with him. Frustrated with being in a "holding pattern" around outpatient services. Physical Exam Psychiatric Orientation: alert Apperance: appropriately dressed and appropriately groomed Eye Contact: good eye contact Motor Behavior: steady gait and station and no abnormal motor movements Speech: normal rate/rhythm/volume of speech Mood: + depressed mood Thought Process: linear/logical thought process Thought Content: reality based without delusions Suicidal Thoughts: denies suicidal thoughts Homicidal Thoughts: denies homicidal thoughts Hallucinations: no auditory hallucinations and no visual hallucinations Cognition: recent memory grossly intact, remote memory grossly intact, attention grossly intact and language grossly intact Estimated Intelligence: consistent with education level Vital Signs (Past 24 Hours) Last Vital Signs Temp 36.5 C 05/30/21 06:42 Pulse 72 05/30/21 06:43 Resp 18 05/30/21 06:42 BP 141/95 H 05/30/21 06:43 Pulse Ox 96 05/28/21 11:06 Results & Data ([facility]) Laboratory Results Laboratory Results - last 24 hr 05/28/21 07:21 U Marijuana THC Carboxy 130 H Drug Screen Comment SEE NOTE Current Inpatient Medications Current Inpatient Medications: Current Inpatient Medications Acetaminophen (Acetaminophen 325 Mg Tab) 650 mg PO Q4H PRN PRN Reason: Headache or Minor Fever Stop: 06/27/21 11:01 Last Admin: 05/30/21 10:03 Dose: 650 mg Documented by: Al Hydrox/Mg Hydrox/Simethicone (Aluminum/Magnesium Susp 30 Ml Udc) 30 ml PO Q4H PRN PRN Reason: GI Upset Stop: 06/27/21 11:01 Lipase/Protease/Amylase (Lipase/Protease/Amylase [id number]) 3 ea PO TIDM [facility] Stop: 06/27/21 17:44 Last Admin: 05/30/21 08:38 Dose: 3 ea Documented by: Lipase/Protease/Amylase (Lipase/Protease/Amylase [id number]) 2 ea PO PRN PRN PRN Reason: with snacks Stop: 06/27/21 14:50 Last Admin: 05/29/21 20:38 Dose: 2 ea Documented by: Bismuth Subsalicylate (Bismuth Subsalicylate Liqd 236 Ml) 15 ml PO PRN PRN PRN Reason: Loose Stool Stop: 06/27/21 11:01 Brexpiprazole (Brexpiprazole 3mg) 1 ea PO HS [facility] Stop: 06/27/21 21:59 Last Admin: 05/29/21 21:31 Dose: 1 ea Documented by: Clonidine HCl (Clonidine Hcl 0.1 Mg Tab) 0.1 mg PO HS [facility] Stop: 06/27/21 21:59 Last Admin: 05/29/21 21:32 Dose: 0.1 mg Documented by: Gabapentin (Gabapentin 300 Mg Cap) 300 mg PO BIDM [facility] Stop: 06/28/21 17:44 Last Admin: 05/30/21 08:37 Dose: 300 mg Documented by: Hydroxyzine HCl (Hydroxyzine Hcl 25 Mg Tab) 50 mg PO HSZ PRN PRN Reason: Insomnia Stop: 06/27/21 11:01 Hydroxyzine HCl (Hydroxyzine Hcl 25 Mg Tab) 25 mg PO Q4H PRN PRN Reason: Anxiety Stop: 06/27/21 11:01 Last Admin: 05/30/21 07:07 Dose: 25 mg Documented by: Lidocaine (Lidocaine 4% Cream 15 Gm Tube) 1 appln EXT DAILY PRN PRN Reason: Rash Stop: 06/27/21 15:55 Lorazepam (Lorazepam 0.5 Mg Tab) 0.5 mg PO BIDM [facility] Stop: 06/28/21 17:44 Last Admin: 05/30/21 08:39 Dose: 0.5 mg Documented by: Magnesium Hydroxide (Magnesium Hydroxide Susp 30 Ml Udc) 30 ml PO DAILY PRN PRN Reason: Constipation Stop: 06/27/21 11:01 Last Admin: 05/29/21 20:20 Dose: 30 ml Documented by: Mirtazapine (Mirtazapine Tab 15 Mg Tab) 30 mg PO [facility] Stop: 06/27/21 21:59 Last Admin: 05/29/21 21:32 Dose: 30 mg Documented by: Mirtazapine (Mirtazapine Tab 15 Mg Tab) 15 mg PO [facility] Stop: 06/27/21 21:59 Last Admin: 05/29/21 21:33 Dose: 15 mg Documented by: Prucalopride [ Motegrity] 2 Mg Tablet ~ Non- Formulary Patient's Own Med 1 ea PO DAILY [facility] Stop: 06/28/21 08:59 Last Admin: 05/30/21 08:39 Dose: 2 mg Documented by: Nortriptyline HCl (Nortriptyline Hcl 25 Mg Cap) 100 mg PO [facility] Stop: 06/27/21 21:59 Last Admin: 05/29/21 21:32 Dose: 100 mg Documented by: Oxybutynin Chloride (Oxybutynin Chloride Xl 5 Mg Tabcr) 5 mg PO QAM [facility] Stop: 06/28/21 08:59 Last Admin: 05/30/21 08:40 Dose: 5 mg Documented by: Potassium Chloride (Potassium Chloride Crtab 20 Meq Tabcr) 40 meq PO ONE ONE Stop: 05/30/21 12:01 Sodium Chloride (Sodium Chloride 0.65% Na Soln 45 Ml ([place])) 1 - 2 sprays NA PRN PRN PRN Reason: Nasal Dryness/Congestion Stop: 06/27/21 11:01 Valacyclovir HCl (Valacyclovir Hcl 500 Mg Tablet) 1,000 mg PO QAM [facility] Stop: 06/28/21 08:59 Last Admin: 05/30/21 08:40 Dose: 1,000 mg Documented by: Zinc Acetate/Diphenhydramine (Diphenhydramine 2%/Zinc 0.1% Cream 28gm Tube) 1 appln EXT BID PRN PRN Reason: Itching Stop: 06/27/21 13:48 Last Admin: 05/28/21 21:19 Dose: 1 appln Documented by: Mental Health & Subst Abuse Tx Psychiatrist Name of Psychiatrist: Sedrick Chatman Psychiatrist's Psychiatric Appointment Comment: [address] [place] [id number] Therapist Name of Therapist: none Post Discharge Appointments Primary Care Physician Name Of Family Doctor: GREYSON Harrell Primary Care Provider Appointment Comment: [address] [facility] [id number]
[2021-05-30] MEDS ORDERED: POTASSIUM CHLORIDE CRTAB 20 MEQ TABCR PO ONE (12:00)
[2021-05-30] MEDS: [UNRECOGNIZED DRUG - OTHER] PO PRN (15:51)
[2021-05-30] MEDS: BREXPIPRAZOLE 3 MG PO SCH (21:19)
[2021-05-30] MEDS: MIRTAZAPINE TAB 15 MG TAB PO SCH ×2 (21:20→21:21)
[2021-05-30] MEDS: NORTRIPTYLINE HCL 25 MG CAP PO SCH (21:20)
[2021-05-30] MEDS: cloNIDine HCL 0.1 MG TAB PO SCH (21:21)
[2021-05-31] MEDS: GABAPENTIN 300 MG CAP PO SCH ×2 (08:50→17:14)
[2021-05-31] MEDS: PRUCALOPRIDE 2 MG PO SCH (08:51)
[2021-05-31] MEDS: [UNRECOGNIZED DRUG - OTHER] PO PRN ×2 (08:51→19:53)
[2021-05-31] MEDS: OXYBUTYNIN CHLORIDE XL 5 MG TABCR PO SCH (08:52)
[2021-05-31] MEDS: [UNRECOGNIZED DRUG - OTHER] PO SCH ×3 (08:53→17:14)
[2021-05-31] MEDS: valACYclovir HCL 500 MG TABLET PO SCH (08:53)
[2021-05-31] MEDS: LORazepam 0.5 MG TAB PO SCH ×2 (08:57→17:14)
--- NOTE | 2021-05-31 09:55 | Psychiatric Progress Note ---
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 The patient is deemed unstable and requires psychiatric hospitalization for diagnostic clarification, safety and stabilization, medication management and development of further coping skills. 05/31/21: increased insight in to her condition and behavior. (1) MDD (major depressive disorder), recurrent episode: (2) Suicidal ideation: (3) Anxiety: (4) Medical marijuana use: (5) Hypokalemia: 05/31/21--continue Ativan taper. Reviewed borderline personality traits an d impact on her self concept/treatment and she desires to discuss more with her outpatient prescriber. awaiting aftercare. 05/30/21--increase frequency of vitals through today, Ativan and Neurontin BID, does not appear uncomfortable, will increase Rexulti as available 05/31/21. Replete K for nocturnal muscle cramps and repeat in am. Patient to be provided educational materials on borderline personality disorder. 05/29/21--Reviewed care by Dr. Chris in italics. Patient was given 1 mg Ativan early this am for BP elevation/presumed withdrawal, no tremor on exam. Will make neurontin standing order to address withdrawal/anxiety during Ativan taper. Confirmed patient has no supply of Ativan, "I took it all". Discussed titration of Rexulti and BID dosing given her hx of gastric surgery/poor absorption. Sent rx for Rexulti 2 mg Bid to pharmacy as splitting 4 mg tablets less than ideal. Will need to determine ability for insurance coverage longer term if dosing works. Patient aware if able to fill that friend will need to brick picker as non- formulary. Suspect heavy use of medical MJ. 05/28/21--The patient [facility]) on q15 min checks (behavioral with suicide precautions) for safety. The patient will participate in group, recreational, and milieu therapies and will be offered additional individual and family sessions as clinically appropriate. 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, hobbies she enjoys Needs: increased supports ideally CM or therapy, coping skills Risk Factors Assessment Male: No : Yes Do You Have Access To A Gun?: No Health Problems: Yes Mental Health Diagnoses: Yes Substance Use Disorders: No Previous Attempt: Yes Family History of Suicide: No Previous Psychiatric Hospitalization: Yes Hopelessness: Yes Smoker: No Protective Factors Assessment Responsible for Young Children: Yes Employed: Yes (Works part-time at [employer]) Stable Relationships: Yes Supportive Family: Yes Good Rapport with Provider: Yes Interval History Identifying Information CARLA HORNE is a 45-year-old woman with a psychiatric history of depression, anxiety, possible BPD, multiple inpatient hospitalizations for suicide attempts, admitted on 05/28/21 11:02 on a 201 voluntary commitment for worsening depression and suicide attempt via ingestion of ~20 tabs of ativan. Chief Complaint "I wrote a poem and am doing the work". Review of Systems Sleep Information Total Hours of Sleep: 5.5 Meal Information Percent Meal Consumed - Breakfast: 100 Percent Meal Consumed - Lunch: 100 Percent Meal Consumed - Dinner: 100 Subjective Subjective Patient was seen & assessed and interval progress reviewed with treatment team. Is willing to meet with ex's father (shares custody of daughter) and will allow phone contact with roommate to diffuse anger around circumstances of seeking care. K is repleted. Reviewed her impressions of the borderline personality disorder handout, she identified with everything but the anger part and reviewed anger turned inward as self-harm. She does feel a void and sensitive to rejection, doesn't trust people's reactions. Physical Exam Psychiatric Orientation: alert and oriented x 3 Apperance: appropriately dressed and appropriately groomed Eye Contact: good eye contact Motor Behavior: steady gait and station and no abnormal motor movements Speech: normal rate/rhythm/volume of speech Mood: + depressed mood Thought Process: linear/logical thought process Thought Content: + cognitive distortions and reality based without delusions Suicidal Thoughts: denies suicidal intent Homicidal Thoughts: denies homicidal thoughts Hallucinations: no auditory hallucinations and no visual hallucinations Cognition: recent memory grossly intact, remote memory grossly intact, attention grossly intact and language grossly intact Estimated Intelligence: consistent with education level Vital Signs (Past 24 Hours) Last Vital Signs Temp 36.5 C 05/31/21 06:34 Pulse 71 05/31/21 06:35 Resp 18 05/31/21 06:34 BP 142/88 H 05/31/21 06:35 Pulse Ox 97 05/30/21 13:47 Results & Data ([facility]) Laboratory Results Laboratory Results - last 24 hr 05/31/21 07:13 Potassium 3.9 Current Inpatient Medications Current Inpatient Medications: Current Inpatient Medications Acetaminophen (Acetaminophen 325 Mg Tab) 650 mg PO Q4H PRN PRN Reason: Headache or Minor Fever Stop: 06/27/21 11:01 Last Admin: 05/30/21 10:03 Dose: 650 mg Documented by: Al Hydrox/Mg Hydrox/Simethicone (Aluminum/Magnesium Susp 30 Ml Udc) 30 ml PO Q4H PRN PRN Reason: GI Upset Stop: 06/27/21 11:01 Lipase/Protease/Amylase (Lipase/Protease/Amylase [id number]) 3 ea PO TIDM MARGO Stop: 06/27/21 17:44 Last Admin: 05/31/21 08:53 Dose: 3 ea Documented by: Lipase/Protease/Amylase (Lipase/Protease/Amylase [id number]) 2 ea PO PRN PRN PRN Reason: with snacks Stop: 06/27/21 14:50 Last Admin: 05/30/21 15:51 Dose: 2 ea Documented by: Bismuth Subsalicylate (Bismuth Subsalicylate Liqd 236 Ml) 15 ml PO PRN PRN PRN Reason: Loose Stool Stop: 06/27/21 11:01 Brexpiprazole (Brexpiprazole 3mg) 1 ea PO HS MARGO Stop: 06/27/21 21:59 Last Admin: 05/30/21 21:19 Dose: 1 ea Documented by: Clonidine HCl (Clonidine Hcl 0.1 Mg Tab) 0.1 mg PO HS MARGO Stop: 06/27/21 21:59 Last Admin: 05/30/21 21:21 Dose: 0.1 mg Documented by: Gabapentin (Gabapentin 300 Mg Cap) 300 mg PO BIDM MARGO Stop: 06/28/21 17:44 Last Admin: 05/31/21 08:50 Dose: 300 mg Documented by: Hydroxyzine HCl (Hydroxyzine Hcl 25 Mg Tab) 50 mg PO HSZ PRN PRN Reason: Insomnia Stop: 06/27/21 11:01 Hydroxyzine HCl (Hydroxyzine Hcl 25 Mg Tab) 25 mg PO Q4H PRN PRN Reason: Anxiety Stop: 06/27/21 11:01 Last Admin: 05/30/21 18:58 Dose: 25 mg Documented by: Lidocaine (Lidocaine 4% Cream 15 Gm Tube) 1 appln EXT DAILY PRN PRN Reason: Rash Stop: 06/27/21 15:55 Lorazepam (Lorazepam 0.5 Mg Tab) 0.5 mg PO BIDM MARGO Stop: 06/28/21 17:44 Last Admin: 05/31/21 08:57 Dose: 0.5 mg Documented by: Magnesium Hydroxide (Magnesium Hydroxide Susp 30 Ml Udc) 30 ml PO DAILY PRN PRN Reason: Constipation Stop: 06/27/21 11:01 Last Admin: 05/29/21 20:20 Dose: 30 ml Documented by: Mirtazapine (Mirtazapine Tab 15 Mg Tab) 30 mg PO HS MARGO Stop: 06/27/21 21:59 Last Admin: 05/30/21 21:20 Dose: 30 mg Documented by: Mirtazapine (Mirtazapine Tab 15 Mg Tab) 15 mg PO HS MARGO Stop: 06/27/21 21:59 Last Admin: 05/30/21 21:21 Dose: 15 mg Documented by: Prucalopride [ Motegrity] 2 Mg Tablet ~ Non- Formulary Patient's Own Med 1 ea PO DAILY MARGO Stop: 06/28/21 08:59 Last Admin: 05/31/21 08:51 Dose: 2 mg Documented by: Nortriptyline HCl (Nortriptyline Hcl 25 Mg Cap) 100 mg PO HS MARGO Stop: 06/27/21 21:59 Last Admin: 05/30/21 21:20 Dose: 100 mg Documented by: Oxybutynin Chloride (Oxybutynin Chloride Xl 5 Mg Tabcr) 5 mg PO QAM MARGO Stop: 06/28/21 08:59 Last Admin: 05/31/21 08:52 Dose: 5 mg Documented by: Sodium Chloride (Sodium Chloride 0.65% Na Soln 45 Ml (Powell)) 1 - 2 sprays NA PRN PRN PRN Reason: Nasal Dryness/Congestion Stop: 06/27/21 11:01 Valacyclovir HCl (Valacyclovir Hcl 500 Mg Tablet) 1,000 mg PO QAM MARGO Stop: 06/28/21 08:59 Last Admin: 05/31/21 08:53 Dose: 1,000 mg Documented by: Zinc Acetate/Diphenhydramine (Diphenhydramine 2%/Zinc 0.1% Cream 28gm Tube) 1 appln EXT BID PRN PRN Reason: Itching Stop: 06/27/21 13:48 Last Admin: 05/28/21 21:19 Dose: 1 appln Documented by: Mental Health & Subst Abuse Tx Psychiatrist Name of Psychiatrist: Sedrick Chatmna Psychiatrist's Psychiatric Appointment Comment: [address] [place] [address] Therapist Name of Therapist: none Post Discharge Appointments Primary Care Physician Name Of Family Doctor: GREYSON Harrell Primary Care Provider Appointment Comment: [id number] [facility], [id number]
[2021-05-31] MEDS: cloNIDine HCL 0.1 MG TAB PO SCH (21:05)
[2021-05-31] MEDS: BREXPIPRAZOLE 2 MG PO SCH (21:05)
[2021-05-31] MEDS: MIRTAZAPINE TAB 15 MG TAB PO SCH ×2 (21:06→21:07)
[2021-05-31] MEDS: NORTRIPTYLINE HCL 25 MG CAP PO SCH (21:07)
[2021-06-01] MEDS: ACETAMINOPHEN 325 MG TAB PO PRN (03:35)
[2021-06-01] MEDS: BREXPIPRAZOLE 2 MG PO SCH (08:33)
[2021-06-01] MEDS: GABAPENTIN 300 MG CAP PO SCH (08:33)
[2021-06-01] MEDS: LORazepam 0.5 MG TAB PO SCH (08:36)
[2021-06-01] MEDS: [UNRECOGNIZED DRUG - OTHER] PO SCH ×2 (08:36→12:51)
[2021-06-01] MEDS: PRUCALOPRIDE 2 MG PO SCH (08:37)
[2021-06-01] MEDS: valACYclovir HCL 500 MG TABLET PO SCH (08:38)
[2021-06-01] MEDS ORDERED: SOLIFENACIN SUCCINATE PO SCH (09:00)
--- NOTE | 2021-06-01 10:09 | Discharge Summary ---
Date of Service June 01, 2021 History of Present Illness As per Dr. Chris on admission: [place], who prefers to be called Lisy, presents for admission for worsening depression and suicide attempt via ingestion of ~20 tabs of ativan in the context of multiple psychosocial stressors. She identifies a long history of depression and anxiety with chronic SI which has worsened over the last month. She identifies stressors of supporting her daughter through a new transition, conflict with her boss at work, financial stress of her apartment rent being increased and providing emotional support to her parents who in the midst of a major life transition. All of this lead her to feel overwhelmed and her chronic baseline passive SI acutely intensified to the point that she impulsively consumed 20 tabs of ativan. Her roommate then notified emergency responders and she was brought to the ED. While in the ED were no signs of acute medical decompensation, respiratory changes or excessive sedation as would typically be seen with such an ingestion. Currently she feels "numb" and endorses multiple symptoms of depression including low mood, hopelessness, helplessness, lack of motivation and tearfulness. She currently feels ambivalent about being alive noting that "I just don't want to feel anymore" and "I just want to go to sleep and not wake up". Endorses anxiety and history of panic attacks. She continues to find isatu from reading,crafting and writing short stories with her daughter and finds meaning from being with her daughter and her cat. Psychiatric ROS notable for: no hx past episodes of connor, no hx psychosis, hx trauma, hx substance use. Physical Exam Mental Examination See admission H&P and DOD summary. Vital Signs (Past 24 Hours) Last Vital Signs Temp 36.7 C 06/01/21 06:34 Pulse 73 06/01/21 06:35 Resp 16 06/01/21 06:34 BP 139/89 06/01/21 06:35 Pulse Ox 96 05/31/21 22:01 Principal Diagnosis major depressive disorder, recurrent Psychiatric Data See daily stay summary. In short, safety was maintained and the patient was cooperative with care. Medication changes included discontinuation of Ativan (tapered following overdose) and titration of Rexulti to 4 mg total daily dose. Given hx of GI absorption issues/bypass recommend trial of split dosing as a trial with final dosing schedule per outpatient provider. She tolerated this well, did have some elevated BP during stay but no other symptoms of withdrawal, used prn Vistaril once for subjective tachycardia. She attributed this and SHEPARD in part to not having access to her medical MJ. A family session was held with both her daughter's grandfather and phone call with roommate prior to discharge and safety plan was completed prior to discharge. She is aware of risks of access to clonidine and TCA at hs but these are for other medical issues and it is believed that the use of Ativan in the OD was selective. She does not have a relationship with her roommate that he could secure meds. She agrees to give to a friend if needed for safety. Day of Discharge Assessment Today the patient voices readiness for discharge. They note improvement in mood and deny thoughts to harm self or others. Thoughts remain organized and they are improved from admission. There is no evidence of psychosis. They agree to take mediations as prescribed and keep follow-up appointments. They are stable for discharge to outpatient level of care. Transition of Care Transition Of Care Record: was reviewed with the patient Advance Directives Advance Directives Information Provided: Yes Advance Directives: No Mental Health Advance Directive: No Advance Directives on File: No Living Will: No Power of Business Communications Instructor: No Advance Directives Reason:: Declines as Mental Health Visit. Risk Factors Assessment Male: No : Yes Do You Have Access To A Gun?: No Health Problems: Yes Mental Health Diagnoses: Yes Substance Use Disorders: No Previous Attempt: Yes Family History of Suicide: No Previous Psychiatric Hospitalization: Yes Hopelessness: Yes Smoker: No Protective Factors Assessment Responsible for Young Children: Yes Employed: Yes (Works part-time at local [employer]) Stable Relationships: Yes Supportive Family: Yes Good Rapport with Provider: Yes Tobacco Cessation at Discharge Tobacco Cessation Medication Prescribed at Discharge: Not Applicable/Non-Smoker Total Time Total Time Spent: Greater Than 30 Minutes Total Time Includes: Examination of the patient, Discharge Planning and Medication Reconciliation Discharge Data Lab Results 05/28/21 05/28/21 05/28/21 07:21 07:21 07:21 WBC RBC Hgb Hct MCV MCH MCHC RDW Std Deviation RDW Coeff of Eliel Plt Count MPV Immature Gran % (Auto) Neut % (Auto) Lymph % (Auto) [place] % (Auto) Eos % (Auto) Baso % (Auto) Neut # (Auto) Lymph # (Auto) [place] # (Auto) Eos # (Auto) Baso # (Auto) Immature Gran # (Auto) Sodium Potassium Chloride Carbon Dioxide Anion Gap BUN Creatinine Est Cr Clr Drug Dosing Est GFR ( Amer) Est GFR (Non-Af Amer) BUN/Creatinine Ratio Glucose Fasting Glucose Calcium Total Bilirubin AST ALT Alkaline Phosphatase Troponin I Total Protein Albumin Globulin Albumin/Globulin Ratio Triglycerides Cholesterol LDL Cholesterol, Calc VLDL Cholesterol, Calc HDL Cholesterol Cholesterol/HDL Ratio TSH HCG, Qual Urine Color Yellow Urine Appearance Clear Urine pH 6.0 Ur Specific [place] 1.003 Urine Protein Negative Urine Glucose (UA) Negative Urine Ketones Negative Urine Blood Negative Urine Nitrite Negative Urine Bilirubin Negative Urine Urobilinogen Negative Ur Leukocyte Esterase Negative Salicylates Urine Opiates Screen Neg Ur Methadone, Qual Neg Acetaminophen Urine Barbiturates Neg Ur Phencyclidine (PCP) Neg U Amphetamin/Meth Scrn Neg MDMA (Ecstasy) Screen Neg U Benzodiazepines Scrn Neg Ur Cocaine Metabolite Neg U Marijuana (THC) Screen Pos H U Marijuana THC Carboxy 130 H Drug Screen Comment SEE NOTE Ethyl Alcohol mg/dL COVID-19 Eval Order SARS-CoV-2 (PCR) 05/28/21 05/28/21 05/28/21 07:25 07:25 07:25 WBC 4.14 L RBC 3.63 L Hgb 11.8 L Hct 35.6 L MCV 98.1 MCH 32.5 MCHC 33.1 RDW Std Deviation 49.0 H RDW Coeff of Eliel 13.6 Plt Count 171 MPV 9.8 Immature Gran % (Auto) 0.0 Neut % (Auto) 59.6 Lymph % (Auto) 28.5 [place] % (Auto) 9.7 Eos % (Auto) 2.2 Baso % (Auto) 0.0 Neut # (Auto) 2.47 Lymph # (Auto) 1.18 L [place] # (Auto) 0.40 Eos # (Auto) 0.09 Baso # (Auto) 0.00 Immature Gran # (Auto) 0.00 Sodium 144 Potassium 3.3 L Chloride 113 H Carbon Dioxide 25 Anion Gap 6.0 BUN 13 Creatinine 0.71 Est Cr Clr Drug Dosing 100.3 Est GFR ( Amer) 118.4 Est GFR (Non-Af Amer) 102.1 BUN/Creatinine Ratio 17.6 Glucose 89 Fasting Glucose Calcium 8.3 L Total Bilirubin 0.4 AST 23 ALT 29 Alkaline Phosphatase 104 Troponin I < 0.015 Total Protein 6.2 L Albumin 2.9 L Globulin 3.3 Albumin/Globulin Ratio 0.9 Triglycerides Cholesterol LDL Cholesterol, Calc VLDL Cholesterol, Calc HDL Cholesterol Cholesterol/HDL Ratio TSH 1.470 HCG, Qual Urine Color Urine Appearance Urine pH Ur Specific [place] Urine Protein Urine Glucose (UA) Urine Ketones Urine Blood Urine Nitrite Urine Bilirubin Urine Urobilinogen Ur Leukocyte Esterase Salicylates < 1.7 L Urine Opiates Screen Ur Methadone, Qual Acetaminophen 4 L Urine Barbiturates Ur Phencyclidine (PCP) U Amphetamin/Meth Scrn MDMA (Ecstasy) Screen U Benzodiazepines Scrn Ur Cocaine Metabolite U Marijuana (THC) Screen U Marijuana THC Carboxy Drug Screen Comment Ethyl Alcohol mg/dL COVID-19 Eval Order SARS-CoV-2 (PCR) 05/28/21 05/28/21 05/28/21 07:25 07:25 09:09 WBC RBC Hgb Hct MCV MCH MCHC RDW Std Deviation RDW Coeff of Eliel Plt Count MPV Immature Gran % (Auto) Neut % (Auto) Lymph % (Auto) [place] % (Auto) Eos % (Auto) Baso % (Auto) Neut # (Auto) Lymph # (Auto) [place] # (Auto) Eos # (Auto) Baso # (Auto) Immature Gran # (Auto) Sodium Potassium Chloride Carbon Dioxide Anion Gap BUN Creatinine Est Cr Clr Drug Dosing Est GFR ( Amer) Est GFR (Non-Af Amer) BUN/Creatinine Ratio Glucose Fasting Glucose Calcium Total Bilirubin AST ALT Alkaline Phosphatase Troponin I Total Protein Albumin Globulin Albumin/Globulin Ratio Triglycerides Cholesterol LDL Cholesterol, Calc VLDL Cholesterol, Calc HDL Cholesterol Cholesterol/HDL Ratio TSH HCG, Qual Negative Urine Color Urine Appearance Urine pH Ur Specific [place] Urine Protein Urine Glucose (UA) Urine Ketones Urine Blood Urine Nitrite Urine Bilirubin Urine Urobilinogen Ur Leukocyte Esterase Salicylates Urine Opiates Screen Ur Methadone, Qual Acetaminophen Urine Barbiturates Ur Phencyclidine (PCP) U Amphetamin/Meth Scrn MDMA (Ecstasy) Screen U Benzodiazepines Scrn Ur Cocaine Metabolite U Marijuana (THC) Screen U Marijuana THC Carboxy Drug Screen Comment Ethyl Alcohol mg/dL < 3.0 COVID-19 Eval Order Covid19 at [facility] SARS-CoV-2 (PCR) 11/05/21 11/06/21 11/08/21 09:13 07:22 07:13 WBC RBC Hgb Hct MCV MCH MCHC RDW Std Deviation RDW Coeff of Eliel Plt Count MPV Immature Gran % (Auto) Neut % (Auto) Lymph % (Auto) [place] % (Auto) Eos % (Auto) Baso % (Auto) Neut # (Auto) Lymph # (Auto) [place] # (Auto) Eos # (Auto) Baso # (Auto) Immature Gran # (Auto) Sodium Potassium 3.9 Chloride Carbon Dioxide Anion Gap BUN Creatinine Est Cr Clr Drug Dosing Est GFR ( Amer) Est GFR (Non-Af Amer) BUN/Creatinine Ratio Glucose Fasting Glucose 93 Calcium Total Bilirubin AST ALT Alkaline Phosphatase Troponin I Total Protein Albumin Globulin Albumin/Globulin Ratio Triglycerides 97 Cholesterol 242 H LDL Cholesterol, Calc 141 VLDL Cholesterol, Calc 19 HDL Cholesterol 82 Cholesterol/HDL Ratio 3 TSH HCG, Qual Urine Color Urine Appearance Urine pH Ur Specific [place] Urine Protein Urine Glucose (UA) Urine Ketones Urine Blood Urine Nitrite Urine Bilirubin Urine Urobilinogen Ur Leukocyte Esterase Salicylates Urine Opiates Screen Ur Methadone, Qual Acetaminophen Urine Barbiturates Ur Phencyclidine (PCP) U Amphetamin/Meth Scrn MDMA (Ecstasy) Screen U Benzodiazepines Scrn Ur Cocaine Metabolite U Marijuana (THC) Screen U Marijuana THC Carboxy Drug Screen Comment Ethyl Alcohol mg/dL COVID-19 Eval Order SARS-CoV-2 (PCR) NEGATIVE Hospital Course (1) MDD (major depressive disorder), recurrent episode: (2) Suicidal ideation: (3) Anxiety: (4) Medical marijuana use: (5) Hypokalemia: 05/31/21--continue Ativan taper. Reviewed borderline personality traits and impact on her self concept/treatment and she desires to discuss more with her outpatient prescriber. awaiting aftercare. 05/30/21--increase frequency of vitals through today, Ativan and Neurontin BID, does not appear uncomfortable, will increase Rexulti as available 05/31/21. Replete K for nocturnal muscle cramps and repeat in am. Patient to be provided educational materials on borderline personality disorder. 05/29/21--Reviewed care by Dr. Chris in italics. Patient was given 1 mg Ativan early this am for BP elevation/presumed withdrawal, no tremor on exam. Will make neurontin standing order to address withdrawal/anxiety during Ativan taper. Confirmed patient has no supply of Ativan, "I took it all". Discussed titration of Rexulti and BID dosing given her hx of gastric surgery/poor absorption. Sent rx for Rexulti 2 mg Bid to pharmacy as splitting 4 mg tablets less than ideal. W ill need to determine ability for insurance coverage longer term if dosing works. Patient aware if able to fill that friend will need to cone picker as non- formulary. Suspect heavy use of medical MJ. 05/28/21--The patient was admitted to the [facility] ([facility] mental health unit) on q15 min checks (behavioral with suicide precautions) for safety. The patient will participate in group, recreational, and milieu therapies and will be offered additional individual and family sessions as clinically appropriate. -fasting labs in the am -Continuing [employer] medications including Rexulti, mirtazapine 45 mg qhs, clonidine 0.1 mg qhs (for BP per her report), nortriptyline 100mg qhs (for nerve pain) -Holding [employer] ativan 1 mg qd -Started gabapentin 300mg qd prn for anxiety/agitation Mental Health & Subst Abuse Tx Psychiatrist Name of Psychiatrist: Sedrick Chatman Psychiatrist's Psychiatric Appointment Comment: [address] [place] [address] Therapist Name of Therapist: Arnold Arnold on Waitlist Therapist's Therapy Appointment Comment: [address] [place] [address] Edi Architect Name of Edi Architect: [facility] Phone Number for Edi Architect: [phone] Case Management Appointment Comment: [facility] will call you to schedule intake. Post Discharge Appointments Primary Care Physician Name Of Family Doctor: GREYSON Harrell [facility] Date of Appointment with PCP: 06/09/21 Time of Appointment with PCP: 12 PM Provider Appointment Comment: [address] [facility], [address] Smoking Cessation Counseling Tobacco Cessation Medication Prescribed at Discharge: Not Applicable/Non-Smoker Discharge Plan Discharge Items Patient Disposition: Home - Self-Care Reason For Visit: MOOD D/O Discharge Diagnosis: major depressive disorder, recurrent Activity: Resume your previous activity Non-emergency contact: Primary Care Provider, Psychiatrist and Therapist Call non-emergency contact if: you have any medication questions and your symptoms worsen Follow-up/Referrals: Marivel Harrell MD [Primary Care Provider] - Diet: Regular Addtl Attending Provider Instructions: SPECIAL CARE INSTRUCTIONS: 1. Follow through with your scheduled aftercare appointments. If unable to keep an appointment, please call to reschedule. 2. Take your medication only as prescribed. Medication should not be changed or stopped without the approval of your doctor. In the event of worsening symptoms or concerns about side effects, contact your doctor immediately. 3. Utilize new healthy coping skills, anger management skills, and stress management skills learned during your hospitalization. Journal feelings and process them with a support person. Identify stressors or situations that may result in relapse, deterioration or inappropriate behaviors and develop a plan to deal with those issues. 4. If your coping skills are ineffective and you are in crisis, contact your outpatient providers for direction. If unable to reach your providers, please call the [facility] CRISIS LINE AT , go to the [facility] walk-in center at [address] [place] [address] A, [place], or go to the closest Emergency Room. 5. Avoid alcohol and un-prescribed drugs. 6. You have been provided with the Mental Health Advance Directives Pamphlet for your review. 7. Your condition is stable for discharge to outpatient level of care, but recovery is an ongoing process. Ifthoughts to harm yourself or others return, follow the safety plan developed during your stay. Planning for a safe return home includes securing weapons. Our treatment team recommends weaponsbe removed from the home until your outpatient provider reassesses your progress. In rare cases where the items themselvescannot be removed, guns and ammunitionshould be secured separatelyand keys stored by a reliable personoutside of the home. If you were admitted on an involuntary commitment, the police or other legal authorities may be involved in this process. AFTERCARE APPOINTMENTS: * Please call your insurance company prior to your scheduled appointment to confirm your aftercare providers are covered. Take your insurance information to your appointments. WHO TO CALL AND WHEN: Medical Emergencies: For questions or emergencies related to your hospital stay, please contact the Inpatient Behavioral Health Unit at [phone]. A sqe is on-call 13/02 for the Behavioral Health Unit for emergencies At any time you feel your situation is an emergency, you may also call 911 immediately. Pending Studies at Discharge: No Stand-Alone Forms: My [facility], Smoking Cessation Medications and DC Order Prescriptions: New Rexulti 2 mg tablet 2 mg PO BID Qty: 30 RF: 0 Continued ferrous sulfate 250 mg (50 mg iron) tablet extended release 250 mg PO BID RF: 0 Creon 3,000-9,500- 15,000 unit capsule,delayed release(DR/EC) 1 - 2 cap PO .COMPLEX RF: 0 vitamin A 10,000 unit capsule 10,000 units PO TID RF: 0 zinc acetate 25 mg (zinc) capsule 50 mg PO QAM RF: 0 valacyclovir [Valtrex] 1 gram tablet 1,000 mg PO QAM RF: 0 cholecalciferol (vitamin D3) 50,000 unit Capsule 50,000 unit PO MOFR RF: 0 Flintstones with Iron 18 mg iron Tablet,Chewable 1 tab PO BID RF: 0 clonidine HCl 0.1 mg tablet 0.1 mg PO HS RF: 0 copper gluconate 2 mg Tablet 2 mg PO QAM RF: 0 albuterol sulfate [ProAir HFA] 90 mcg/actuation HFA aerosol inhaler 2 puff INH Q4 PRN (Reason: shortness of breath or wheezing) RF: 0 cyanocobalamin (vitamin B-12) 1,000 mcg/mL solution 1,000 mcg IM Q3MO RF: 0 fluticasone propionate [Flonase Allergy Relief] 50 mcg/actuation [place],Suspension 2 spray INTRANASAL QAM RF: 0 mirtazapine [Remeron] 30 mg Tablet 30 mg PO HS RF: 0 hydroxyzine HCl 25 mg tablet 25 - 50 mg PO HS PRN (Reason: Insomnia) RF: 0 nortriptyline 50 mg capsule 100 mg PO HS RF: 0 mirtazapine 15 mg tablet 15 mg PO HS RF: 0 solifenacin [Vesicare] 10 mg tablet 10 mg PO QAM RF: 0 Motegrity 2 mg Tablet 2 mg PO DAILY RF: 0 Discontinued lorazepam 1 mg tablet 1 mg PO DAILY PRN (Reason: Anxiety) RF: 0 Rexulti 3 mg tablet 3 mg PO HS RF: 0 lidocaine HCl 3 % cream 1 applic topical DAILY PRN (Reason: Itching) RF: 0 Discharge Orders: Discharge Order (Routine); Ordered 06/01/21 Ordered By: Rebeca Samayoa Admission Data Admit Date/Time: 05/28/21 11:02 Attending Provider: Rebeca Samayoa Admit Provider: Arielle Chris Primary Care Provider: Marivel Harrell Other Interventions: Discharge Summary Assessment (RN) Last Done: 06/01/21 12:38 Coding Level of Care Code 44359 D/C day mgmt > 30 min Diagnoses MDD (major depressive disorder), recurrent episode F33.9 Suicidal ideation R45.851 Anxiety F41.9 Medical marijuana use Z79.899 Hypokalemia E87.6
== END 2021-06-01 15:25 | disposition home or self-care (01) | DRG 885 ==
LOC: ED 06:48 → 3S 11:02 → SUATTDRO 11:02 → 3S 11:28